=== PATIENT | male | born 1935 | race Two or more races ===

== ENCOUNTER 2017-07-21 16:19 | Inpatient (IN) | payer MEDICARE, BC ==
--- NOTE | 2017-07-21 22:04 | XR ---
EXAMINATION TYPE: XR chest 1V portable DATE OF EXAM: 07/21/2017 COMPARISON: NONE INDICATION: Pneumonia TECHNIQUE: Single frontal view of the chest is obtained. FINDINGS: The heart size is normal. The pulmonary vasculature is normal. Mild infiltrate is at the left base. Atelectasis and pneumonia are within the differential. Follow-up is recommended IMPRESSION: 1. Left basilar infiltrate. Correlate for atelectasis or pneumonia.
[2017-07-21] MEDS: SODIUM CHLORIDE 0.9% 1,000 ML IV SCH (22:16)
[2017-07-21] MEDS: AZITHROMYCIN 500 MG in SODIUM CHLORIDE 0.9% 250 ML IVPB SCH (22:18)
[2017-07-21] MEDS: cefTRIAXone IN SWFI 1,000 MG/10 ML SYRINGE IVP SCH (22:19)
[2017-07-21 22:36] LABS: HCT 35.6 % (39.0-53.0); HGB 12.3 gm/dL (13.0-17.5); MCH 33.2 pg (25.0-35.0); MCHC 34.6 g/dL (31.0-37.0); MCV 96.2 fL (80.0-100.0); Mean Platelet Volume 7.6; Platelet Count 232 k/uL (150-450); RBC 3.71 m/uL (4.30-5.90); RDW 14.2 % (11.5-15.5); WBC 10.4 k/uL (3.8-10.6)
[2017-07-21 22:48] LABS: Albumin 3.2 g/dL (3.5-5.0); Calcium 8.9 mg/dL (8.4-10.2); Total Bilirubin 0.3 mg/dL (0.2-1.3)
[2017-07-21 23:01] LABS: Large Platelets Present; Lymphocytes # (M) 1.14 k/uL (1.0-4.8); Monocytes # (M) 1.87 k/uL (0-1.0); Neutrophils # (M) 7.38 k/uL (1.3-7.7); Neutrophils % (M) 71 %; Nucleated Red Blood Cells 0 /100 WBC (0-0); Total Cells Counted 100
[2017-07-21] MEDS ORDERED: ACETAMINOPHEN TAB 325 MG TAB PO PRN (23:04)
[2017-07-21] MEDS ORDERED: HYDROcodone/APAP 5-325MG 1 EACH TAB PO PRN (23:47)
[2017-07-21] MEDS ORDERED: TEMAZEPAM 15 MG CAP PO PRN (23:47)
[2017-07-22 00:18] LABS: Appearance,Urine Clear (Clear); Bilirubin,Urine Negative (Negative); Blood,Urine Small (Negative); Color,Urine Yellow; Glucose,Urine (UA) Negative (Negative); Ketones,Urine 1+ (Negative); Leukocyte Esterase,Urine Trace (Negative); Nitrite,Urine Negative (Negative); PH, Urine 5.5 (5.0-8.0); Protein,Urine 1+ (Negative); RBC,Urine 1 /hpf (0-5); Specific Gravity,Urine 1.016 (1.001-1.035); Urobilinogen,Urine <2.0 mg/dL (<2.0); WBC,Urine 1 /hpf (0-5)
[2017-07-22] MEDS: ASPIRIN 81 MG PO SCH ×2 (01:05→09:07)
[2017-07-22] MEDS: metroNIDAZOLE 500 MG TAB PO SCH ×4 (01:05→22:52)
[2017-07-22] MEDS: ALLOPURINOL 300 MG TAB PO SCH ×3 (01:05→09:07)
[2017-07-22] MEDS: methylPREDNISolone SOD SUCCI 125 MG/2 ML VIAL IV SCH ×2 (01:06→06:26)
--- NOTE | 2017-07-22 05:36 | HP ---
HISTORY AND PHYSICAL CHIEF COMPLAINT: The chief complaints are pneumonia and as well as diarrhea and renal failure. HISTORY OF PRESENT ILLNESS: This 82-year-old gentleman with a past medical history of multiple medical problems including hypotension, asthma, obesity, history of COPD, hypertension, hyperlipidemia, ventral hernia, BPH, peripheral neuropathy being followed by Dr. Gino Gonzalez in the outpatient setting was complaining of shortness of breath and feeling pale and sweaty. Went to [facility] a few days ago, the patient was admitted there. Patient had some watery diarrhea. The patient apparently was taking some antibiotics. The patient recently traveled to [place] and patient was being monitored. The patient was found to have left lower pneumonia and multiple other findings on the CAT scan. The patient was subsequently transferred to [facility] for further evaluation and treatment. C. difficile is pending at this time. There is no history of any fever or rigors. No history of headache, loss of consciousness, seizures. PAST MEDICAL HISTORY: Hypertension, asthma, hayfever, history of obesity, hyperlipidemia, CAD, DJD, ventral hernia. MEDICATIONS: Medications prior to admission include home medications are: 1. Vitamin D2, 50,000 q.7 days. 2. Vitamin B6, 100 mg p.o. daily. 3. Klor-Con 10 mEq p.o. q.a.m. 4. ProAmatine 10 mg p.o. b.i.d. 5. Lasix 20 mg p.o. daily. 6. Vitamin D3, 1000 daily. 7. Zyloprim 300 mg p.o. daily. 8. Flovent 2 puffs daily. 9. Vitamin B12, 500 mcg p.o. daily. 10.Flomax 0.4 p.o. daily. 11.Singulair 10 mg p.o. daily. 12.Nexium 40 mg daily. 13.Aspirin 81 mg daily. ALLERGIES: None. FAMILY HISTORY: History of coronary artery disease and cancer in the family. No history of stroke. SOCIAL HISTORY: No history of smoking. Occasional alcohol intake. REVIEW OF SYSTEMS: ENT: No diminished hearing or diminished vision. CARDIOVASCULAR SYSTEM: As mentioned earlier. RESPIRATORY SYSTEM: As mentioned earlier. GI: No nausea, vomiting. : No dysuria. NERVOUS SYSTEM: No numbness or weakness. ALLERGY/IMMUNOLOGY: No asthma or hayfever. MUSCULOSKELETAL: As mentioned earlier. HEMATOLOGY/ONCOLOGY: No history anemia. ENDOCRINE: No history of diabetes or hypothyroidism. CONSTITUTIONAL: As mentioned earlier. DERMATOLOGY: Negative. RHEUMATOLOGY: Negative. PSYCHIATRY: As mentioned earlier. PHYSICAL EXAMINATION: The patient is alert and oriented x3. Pulse is 93, blood pressure 163/75, respiration 18, temperature 100.4, pulse ox 96% on room air. HEENT: Conjunctivae normal. Oral mucosa moist. Neck is no jugular venous distention. No carotid bruit. No lymph node enlargement. CARDIOVASCULAR: S1 and S2 muffled. No S3, no S4. RESPIRATORY: Breath sounds diminished at the bases. A few scattered rhonchi and crackles. ABDOMEN: Soft, nontender. No mass palpable. LEGS: No edema, no swelling. NERVOUS SYSTEM: Higher function as mentioned earlier. Moves all 4 limbs. No focal motor or sensory deficits. LYMPHATICS: No lymphadenopathy of the neck, axillae or groin. SKIN: No ulcer, rash or bleeding. LABS: WBC 10.4, hemoglobin is 12.3, monocytes is 1.8. Sodium 134, potassium 4, creatinine 1.37. Albumin 3.2. Chest x-ray reviewed personally.lt pneumonia ASSESSMENT: 1. Acute left lower lobe pneumonia, possibly gram-negative. 2. Acute diarrhea, possibly Clostridium difficile colitis. 3. Asthma, acute exacerbation. 4. Hypertension. 6. Obesity. 7. Hyperlipidemia. 8. Coronary artery disease. 9. Degenerative joint disease. 10.Ventral hernia. 11.Benign prostatic hypertrophy. 12.Peripheral neuropathy. 13.History of hypotension. 14.History of hernia surgery. 15.History of possibly EtOH. RECOMMENDATION AND DISCUSSION: In this 82-year-old gentleman who presented with multiple complex medical issues , we will monitor the patient closely. Continue the current medications. Cautious hydration. I would also recommend C. difficile checking and to cut down the diet and pulmonary consultation, empiric antibiotics. We will recommend empiric Flagyl. Prognosis guarded because of multiple complex medical issues. See orders for details. Further recommendations to follow. A copy of dictation forwarded to Dr. Gonzalez who is the primary physician. CHRIS / HOWIE: [id number] / MTDD
[2017-07-22 07:10] LABS: Glucose,Whole Blood 112 mg/dL (75-99)
[2017-07-22] MEDS ORDERED: IPRATROPIUM-ALBUTEROL 3 ML NEB INHALATION SCH (08:00)
[2017-07-22] MEDS ORDERED: SYMBICORT 160-4.5 MCG INHALER INHALATION SCH (08:00)
[2017-07-22] MEDS ORDERED: ALLOPURINOL 300 MG TAB PO SCH (09:00)
[2017-07-22] MEDS ORDERED: ASPIRIN 81 MG PO SCH (09:00)
[2017-07-22] MEDS: MIDODRINE 5 MG TAB PO SCH ×2 (09:04→21:57)
[2017-07-22] MEDS: HEPARIN SODIUM,PORCINE 5,000 UNIT/ML 1 ML VIAL SQ SCH ×2 (09:05→21:57)
[2017-07-22] MEDS: TAMSULOSIN 0.4 MG CAP.ER.24H PO SCH (09:06)
[2017-07-22] MEDS: CYANOCOBALAMIN 500 MCG TAB PO SCH (09:06)
[2017-07-22] MEDS: INSULIN ASPART 100 UNIT/ML 1 ML 10 ML VIAL SQ SCH ×4 (09:07→21:58)
[2017-07-22] MEDS: PANTOPRAZOLE 40 MG TABLET PO SCH (09:07)
[2017-07-22] MEDS: CHOLECALCIFEROL 1,000 UNIT TAB PO SCH (09:11)
[2017-07-22] MEDS: cefTRIAXone IN SWFI 1,000 MG/10 ML SYRINGE IVP SCH (09:11)
[2017-07-22 10:51] LABS: Basophils % (A) 0 %; Eosinophils % (A) 0 %; HCT 35.5 % (39.0-53.0); Lymphocytes # (A) 0.5 k/uL (1.0-4.8); Lymphocytes % (A) 8 %; MCH 32.9 pg (25.0-35.0); MCHC 33.7 g/dL (31.0-37.0); MCV 97.7 fL (80.0-100.0); Mean Platelet Volume 7.9; Monocytes # (A) 0.1 k/uL (0-1.0); Monocytes % (A) 1 %; Neutrophils # (A) 5.6 k/uL (1.3-7.7); Neutrophils % (A) 90 %; Platelet Count 202 k/uL (150-450); RBC 3.63 m/uL (4.30-5.90); RDW 14.2 % (11.5-15.5); WBC 6.2 k/uL (3.8-10.6)
--- NOTE | 2017-07-22 11:03 | P.CNPUL ---
History of Present Illness Consult date: 07/22/17 Reason for consult: dyspnea, cough Chief complaint: Diarrhea, cough, shortness of breath History of present illness: This is an 82-year-old gentleman who was transferred to [facility] from [facility]. The patient states he was admitted to the hospital on . He was transferred overnight secondary to dehydration and diarrhea. The patient states he has been short of breath for over a week. He denies fevers however he does note that he has had chills since arriving to the hospital. He does have a cough which she states is nonproductive of phlegm. He denies any sick contacts. He is a lifelong never smoker. 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 He was also in the [employer] and it is unknown if he was exposed to asbestos. He states his diarrhea is starting to improve. He does have a history of asthma and is on Xolair and Singulair. He states he does not use breathing treatments or inhalers at home. He does complain of wheezing. He did have a breathing treatment this morning which she states did help. The patient did have a chest x-ray which showed a left lower lobe infiltrate. Review of Systems All systems: negative Past Medical History Past Medical History: Asthma, GERD/Reflux, Hyperlipidemia, Prostate Disorder Additional Past Medical History / Comment(s): HYPOTENSION, PAST ANEMIA USED TO TAKE IRON SUPPLEMENTS, SEASOANL ALLERGIES, ENLARGED PROSTATE. GOUT. NEUROPATHY History of Any Multi-Drug Resistant Organisms: None Reported Past Surgical History: Hernia Repair, Orthopedic Surgery Additional Past Surgical History / Comment(s): FOOT SURG(.scraped bones- ancelmo 5th toes), cataracts- lens implants, [facility] HERNIA REPAIR W/MESH Past Anesthesia/Blood Transfusion Reactions: No Reported Reaction Smoking Status: Never smoker - Past Family History Brother(s) Family Medical History: Cancer, Coronary Artery Disease (CAD) Mother History Unknown: Yes Family Medical History: No Reported History Additional Family Medical History / Comment(s): " from natural causes" Father Additional Family Medical History / Comment(s): from black lung, 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 [place] Medications and Allergies Home Medications Medication Instructions Recorded Confirmed Type Allopurinol [Zyloprim] 300 mg PO DAILY 07/30/15 07/21/17 History Aspirin 81 mg PO DAILY 07/30/15 07/21/17 History Esomeprazole Magnesium [NexIUM] 40 mg PO DAILY 07/30/15 07/21/17 History Montelukast [Singulair] 10 mg PO DAILY 07/30/15 07/21/17 History Ergocalciferol [Vitamin D2 50,000 unit PO Q7D 12/05/15 07/21/17 History (DRISDOL)] Furosemide [Lasix] 20 mg PO DAILY 12/05/15 07/21/17 History Midodrine HCl [ProAmatine] 10 mg PO BID 12/05/15 07/21/17 History Potassium Chloride [Klor-Con 10] 10 meq PO QAM 12/05/15 07/21/17 History Cholecalciferol [Vitamin D3] 1,000 unit PO DAILY 12/13/15 07/21/17 History Cyanocobalamin [Vitamin B-12] 500 mcg PO DAILY 12/13/15 07/21/17 History Fluticasone Propionate [Flovent 2 puff INHALATION RT-DAILY 12/13/15 07/21/17 History Hfa 110mcg] Pyridoxine HCl (Vitamin B6) 100 mg PO DAILY 07/21/17 07/21/17 History [Vitamin B-6] Tamsulosin HCl [Flomax] 0.4 mg PO DAILY 07/21/17 07/21/17 History Allergies Allergy/AdvReac Type Severity Reaction Status Date / Time No Known Allergies Allergy Verified 07/21/17 22:02 Physical Exam Osteopathic Statement: *. No significant issues noted on an osteopathic structural exam other than those noted in the History and Physical/Consult. Vitals: Vital Signs Temp Pulse Pulse Resp BP Pulse Ox 07/22/17 09:00 16 07/22/17 08:09 78 07/22/17 08:00 76 07/22/17 06:08 96.5 F L 70 16 175/81 97 07/21/17 23:00 100.7 F H 85 16 169/79 93 L 07/21/17 20:08 100.5 F H 93 18 163/75 96 Intake and Output 07/21/17 07/22/17 07/22/17 22:59 06:59 14:59 Intake Total 192 Output Total 1 Balance 191 Intake: Oral 192 Output: Stool 1 Other: Voiding Method Toilet # Voids 1 2 1 # Bowel Movements 1 1 Weight 99.79 kg Gen.: Patient is alert and oriented 3, no acute distress, obese Cardiovascular: Regular rate and rhythm, S1/S2 Lungs: Bilateral expiratory wheezing Abdomen: Soft nontender nondistended positive bowel sounds Extremities: Trace edema Results - Laboratory Findings CBC and BMP: 07/21/17 21:54 07/21/17 21:54 Abnormal lab findings: Abnormal Labs 07/21/17 07/21/17 07/21/17 21:54 21:54 23:55 RBC 3.71 L Hgb 12.3 L Hct 35.6 L Monocytes # (Manual) 1.87 H Sodium 134 L Carbon Dioxide 16 L BUN 26 H Creatinine 1.37 H POC Glucose (mg/dL) Alkaline Phosphatase 143 H Total Protein 6.0 L Albumin 3.2 L Urine Protein 1+ H Urine Ketones 1+ H Urine Blood Small H Ur Leukocyte Esterase Trace H 07/22/17 06:48 RBC Hgb Hct Monocytes # (Manual) Sodium Carbon Dioxide BUN Creatinine POC Glucose (mg/dL) 112 H Alkaline Phosphatase Total Protein Albumin Urine Protein Urine Ketones Urine Blood Ur Leukocyte Esterase - Diagnostic Findings Chest x-ray: report reviewed, image reviewed Assessment and Plan Assessment: Acute hypoxic respiratory failure Acute healthcare associated pneumonia, left lower lobe Acute exacerbation of severe persistent asthma Gastroenteritis of unclear etiology 2 out of 4 SIRS, sepsis Normochromic normocytic anemia Hyponatremia with dehydration Acute kidney injury Mild protein calorie malnutrition UTI present on admission Hypertension Obesity Dyslipidemia Coronary artery disease BPH Peripheral neuropathy O2 to maintain saturation greater than or equal to 90% Antibiotics: per ID IVF hydration Blood, sputum, urine, stool cultures Stool for cdiff Duonebs Repeat CXR in AM Pulmicort Singulair Solumedrol taper Incentive spirometry and pulmonary hygiene Mucinex Monitor renal function and urine output Avoid nephrotoxins GI and DVT prophylaxis: GI and DVT prophylaxis Thank you for this consultation. We will continue to follow along.
[2017-07-22 11:09] LABS: Calcium 8.7 mg/dL (8.4-10.2); Potassium 3.7 mmol/L (3.5-5.1)
[2017-07-22 11:51] LABS: Glucose,Whole Blood 251 mg/dL (75-99)
[2017-07-22] MEDS: PYRIDOXINE 50 MG TAB PO SCH (13:08)
[2017-07-22] MEDS: IPRATROPIUM-ALBUTEROL 3 ML NEB INHALATION SCH ×2 (13:11→20:13)
[2017-07-22] MEDS: methylPREDNISolone SOD SUCCI 40 MG/ML 1 ML VIAL IV SCH ×2 (15:49→22:52)
--- NOTE | 2017-07-22 16:15 | P.PN ---
Subjective Progress Note Date: 07/22/17 Progress note being dictated for Dr. Hernandez. Interval history: This 82-year-old gentleman admitted with left lower lobe pneumonia, diarrhea and multiple other medical issues. Diarrhea tested negative for C. difficile colitis. Maintained on gentle IV fluid hydration. Diarrhea subsided. Creatinine improving. Maintained on nebulized bronchodilators, antibiotics, IV steroids with breathing improving. T-max 100.7 , currently afebrile. Objective - Vital Signs Vital signs: Vital Signs Temp 96.5 F L 07/22/17 06:08 Pulse 82 07/22/17 13:21 Resp 16 07/22/17 09:00 BP 175/81 07/22/17 06:08 Pulse Ox 97 07/22/17 06:08 Intake & Output 07/21/17 07/22/17 07/22/17 18:59 06:59 18:59 Intake Total 192 Output Total 1 Balance 191 Weight 99.79 kg Intake: Oral 192 Output: Stool 1 Other: Voiding Method Toilet # Voids 2 3 # Bowel Movements 1 1 - Exam PHYSICAL EXAM: VITAL SIGNS: As above GENERAL: Sitting up in bed, no acute distress HEENT: Conjunctivae normal. eyes normal. Oral mucosa moist NECK: No JVD. No thyroid enlargement. No LNs CARDIOVASCULAR: S1, S2 muffled. No murmur RESPIRATION: Breath sounds diminished in the bases. Occasional scattered bilateral rhonchi, crackles, expiratory wheezing ABDOMEN: Soft, nontender . No guarding. no masses palpable.Bowel sounds heard. LEGS: No edema. no swelling PSYCHIATRY: Alert and oriented -3, mood and affect normal. NERVOUS SYSTEM: Cranial N 2-12 grossly normal. Moves all 4 limbs. Diffuse weakness No focal deficits. Skin: no ulcer no rash Joints: No active swelling. No inflammation. Lymphatic system. No LN neck axilla or groin. - Labs CBC & Chem 7: 07/22/17 10:04 07/22/17 10:04 Labs: Abnormal Lab Results - Last 24 Hours (Table) 07/21/17 07/21/17 07/21/17 Range/Units 21:54 21:54 23:55 RBC 3.71 L (4.30-5.90) m/uL Hgb 12.3 L (13.0-17.5) gm/dL Hct 35.6 L (39.0-53.0) % Lymphocytes # (1.0-4.8) k/uL Monocytes # (Manual) 1.87 H (0-1.0) k/uL Sodium 134 L (137-145) mmol/L Carbon Dioxide 16 L (22-30) mmol/L BUN 26 H (9-20) mg/dL Creatinine 1.37 H (0.66-1.25) mg/dL Glucose (74-99) mg/dL POC Glucose (mg/dL) (75-99) mg/dL Alkaline Phosphatase 143 H (38-126) U/L Total Protein 6.0 L (6.3-8.2) g/dL Albumin 3.2 L (3.5-5.0) g/dL Urine Protein 1+ H (Negative) Urine Ketones 1+ H (Negative) Urine Blood Small H (Negative) Ur Leukocyte Esterase Trace H (Negative) 07/22/17 07/22/17 07/22/17 Range/Units 06:48 10:04 10:04 RBC 3.63 L (4.30-5.90) m/uL Hgb 12.0 L (13.0-17.5) gm/dL Hct 35.5 L (39.0-53.0) % Lymphocytes # 0.5 L (1.0-4.8) k/uL Monocytes # (Manual) (0-1.0) k/uL Sodium 136 L (137-145) mmol/L Carbon Dioxide 15 L (22-30) mmol/L BUN 28 H (9-20) mg/dL Creatinine (0.66-1.25) mg/dL Glucose 251 H (74-99) mg/dL POC Glucose (mg/dL) 112 H (75-99) mg/dL Alkaline Phosphatase (38-126) U/L Total Protein (6.3-8.2) g/dL Albumin (3.5-5.0) g/dL Urine Protein (Negative) Urine Ketones (Negative) Urine Blood (Negative) Ur Leukocyte Esterase (Negative) 07/22/17 Range/Units 11:49 RBC (4.30-5.90) m/uL Hgb (13.0-17.5) gm/dL Hct (39.0-53.0) % Lymphocytes # (1.0-4.8) k/uL Monocytes # (Manual) (0-1.0) k/uL Sodium (137-145) mmol/L Carbon Dioxide (22-30) mmol/L BUN (9-20) mg/dL Creatinine (0.66-1.25) mg/dL Glucose (74-99) mg/dL POC Glucose (mg/dL) 251 H (75-99) mg/dL Alkaline Phosphatase (38-126) U/L Total Protein (6.3-8.2) g/dL Albumin (3.5-5.0) g/dL Urine Protein (Negative) Urine Ketones (Negative) Urine Blood (Negative) Ur Leukocyte Esterase (Negative) Microbiology - Last 24 Hours (Table) 07/21/17 23:55 Urine Culture - Preliminary Urine,Clean Catch Assessment and Plan Assessment: 1. Acute left lower lobe pneumonia possibly gram-negative 2. Acute diarrhea, C. difficile colitis ruled out 3. Asthma, acute exacerbation 4. Hypertension 5. Obesity, BMI 32.5 6. CAD Plan: Continue with current medication regime ,PPI, monitoring and symptomatic treatment. Maintaining gentle IV fluid hydration for today given patient's diarrhea on admission. Probably discontinue IV fluids tomorrow, if patient continues to have no diarrhea. Advance diet to full liquids. Maintain nebulized bronchodilators, systemic steroids, antibiotics. Cultures pending. Aggressive pulmonary toileting with incentive spirometer reinforced. Close monitoring of renal function, electrolyte with repeat labs ordered for a.m. The impression and plan of care has been dictated as directed. : I performed a history and examination of this patient, discussed the same with the dictator. I agree with the dictator's note ,documented as a scribe. Any additional findings or plans will be noted.
[2017-07-22 17:06] LABS: Glucose,Whole Blood 299 mg/dL (75-99)
[2017-07-22] MEDS: SODIUM CHLORIDE 0.9% 1,000 ML IV SCH (17:12)
[2017-07-22] MEDS: CHOLESTYRAMINE (WITH SUGAR) 4 GM PACKET PO SCH (17:21)
[2017-07-22] MEDS: BUDESONIDE 0.5 MG/2 ML NEBU INHALATION SCH (20:13)
[2017-07-22 20:49] LABS: Hemoglobin A1C 5.4 % (4.0-6.0)
[2017-07-22 21:54] LABS: Glucose,Whole Blood 185 mg/dL (75-99)
[2017-07-22] MEDS: AZITHROMYCIN 500 MG in SODIUM CHLORIDE 0.9% 250 ML IVPB SCH (21:56)
[2017-07-22] MEDS: MONTELUKAST 10 MG TAB PO SCH (21:57)
[2017-07-22] MEDS: guaiFENesin 600 MG TABLET.ER PO SCH (21:57)
--- NOTE | 2017-07-22 23:19 | CONS ---
CONSULTATION DATE OF SERVICE: 07/22/2017 REASON FOR CONSULTATION: Infection. HISTORY OF PRESENT ILLNESS: The patient is an 83-year-old male who apparently presented to the [facility] with chief complaints of dehydration and diarrhea. His symptom of diarrhea has been going on for about a week. He did have 4-5 loose stools per day with no blood or mucus in it. He denies significant abdominal pain, some nausea, but no vomiting. The patient also has been complaining of some shortness of breath on minimal exertion. He did have a very mild cough, but not bringing up any sputum. Denies having any URI symptoms. With these symptoms, the patient apparently had been evaluated at [facility]. The patient did have a workup including a CT of the chest that had been suspicious for possible pneumonia, left lower lobe. Subsequently, the patient has been transferred to the [facility] for further workup of the same. Infectious Disease was consulted for further recommendation regarding antibiotic therapy. REVIEW OF SYSTEMS: CONSTITUTIONAL: Positive for weakness, some chills but denies any high-grade fever. EYES: No complaint. ENT: No complaint. RESPIRATORY: As per HPI. CARDIOVASCULAR: No complaint. GENITOURINARY: No complaint. : As per HPI. MUSCULOSKELETAL: No complaint. INTEGUMENTARY: No complaint. PSYCHOLOGICAL: No complaint. ENDOCRINE: No complaint. NEUROLOGICAL: No complaint. PAST MEDICAL HISTORY: Significant for gastroesophageal reflux disease, hyperlipidemia, hypertrophy, neuropathy, asthma. PAST SURGICAL HISTORY: Hernia repair . SOCIAL HISTORY: No history of smoking, drinking or drug use. FAMILY HISTORY: Father history of coronary artery disease. Mother of natural causes. ALLERGIES: No known drug allergies. MEDICATIONS: Include the patient is currently on Tylenol, [place], DuoNeb, Zyloprim, aspirin, erythromycin, Pulmicort, Rocephin, vitamin D3, D2, heparin, NovoLog, Solu- Medrol, , Singulair, Protonix. EXAMINATION: Blood pressure 144/67, pulse of 80, temperature 97.8, T-max is 100.7. He is 95% on room air. General description is an elderly male lying in bed in no distress. No tachypnea or accessory muscle of respiration use. HEENT: Shows no pallor or scleral icterus. Oral mucous membranes dry. No pharyngeal erythema or thrush. NECK: Trachea central. No thyromegaly. LUNGS: Unlabored breathing with decreased breath sounds in the bases. No wheeze or crackle. HEART: S1, S2. Regular rate and rhythm. ABDOMEN: Soft, no tenderness. No guarding or rigidity. EXTREMITIES: No edema of the feet. SKIN EXAMINATION: No rash or mass palpable. NEUROLOGICAL: The patient is awake, alert, oriented. Mood and affect normal. LABS: Hemoglobin is 12, white count 6.2. Stool for C. difficile has been negative. BUN of 28, creatinine 1.24. Electrolytes has been normal. Urine was negative. Chest x-ray with left lower lobe pneumonia. DIAGNOSTIC IMPRESSION AND PLAN: 1. The patient presented to the hospital with increasing shortness of breath. He did have a cough with left lower lobe infiltrate and fever of 100.7. The patient did have primary GI symptom with question of possible to be the cause of underlying left lower lobe pneumonia. 2. The patient with significant diarrhea, questionably related to underlying stomach illness from his pneumonia versus secondary to a GI infection. The stool for Clostridium difficile has been negative. PLAN: 1. We will check urine for Legionella antigen. 2. Get sputum for Gram stain and culture today. 3. Patient will be treated with Rocephin 1 g along with Zithromax for . 4. We will add Questran 4 g twice a day for symptomatic relief. 5. We will follow up on his clinical condition and culture to further adjust medication if needed. Thank you for this consultation. We will follow this patient along with you. MMODL / IJN: [id number] /
[2017-07-23 07:24] LABS: Glucose,Whole Blood 175 mg/dL (75-99)
[2017-07-23] MEDS: MIDODRINE 5 MG TAB PO SCH ×2 (07:57→21:30)
[2017-07-23] MEDS: methylPREDNISolone SOD SUCCI 40 MG/ML 1 ML VIAL IV SCH ×3 (08:01→23:55)
[2017-07-23] MEDS: CYANOCOBALAMIN 500 MCG TAB PO SCH (08:02)
[2017-07-23] MEDS: ALLOPURINOL 300 MG TAB PO SCH (08:02)
[2017-07-23] MEDS: HEPARIN SODIUM,PORCINE 5,000 UNIT/ML 1 ML VIAL SQ SCH ×2 (08:02→21:18)
[2017-07-23] MEDS: metroNIDAZOLE 500 MG TAB PO SCH ×3 (08:02→23:55)
[2017-07-23] MEDS: ASPIRIN 81 MG PO SCH (08:03)
[2017-07-23] MEDS: PANTOPRAZOLE 40 MG TABLET PO SCH (08:03)
[2017-07-23] MEDS: CHOLECALCIFEROL 1,000 UNIT TAB PO SCH (08:03)
[2017-07-23] MEDS: TAMSULOSIN 0.4 MG CAP.ER.24H PO SCH (08:03)
[2017-07-23] MEDS: guaiFENesin 600 MG TABLET.ER PO SCH ×2 (08:03→21:18)
[2017-07-23] MEDS: cefTRIAXone IN SWFI 1,000 MG/10 ML SYRINGE IVP SCH (08:03)
[2017-07-23] MEDS: INSULIN ASPART 100 UNIT/ML 1 ML 10 ML VIAL SQ SCH ×4 (08:13→21:28)
[2017-07-23] MEDS: BUDESONIDE 0.5 MG/2 ML NEBU INHALATION SCH ×2 (08:40→20:49)
[2017-07-23] MEDS: IPRATROPIUM-ALBUTEROL 3 ML NEB INHALATION SCH ×3 (08:40→20:49)
[2017-07-23 08:57] LABS: Basophils % (A) 0 %; Eosinophils % (A) 0 %; HCT 34.3 % (39.0-53.0); HGB 11.6 gm/dL (13.0-17.5); Lymphocytes # (A) 0.6 k/uL (1.0-4.8); Lymphocytes % (A) 4 %; MCH 32.5 pg (25.0-35.0); MCHC 33.9 g/dL (31.0-37.0); Mean Platelet Volume 7.8; Monocytes # (A) 0.4 k/uL (0-1.0); Monocytes % (A) 3 %; Neutrophils # (A) 13.4 k/uL (1.3-7.7); Neutrophils % (A) 92 %; Platelet Count 254 k/uL (150-450); RBC 3.57 m/uL (4.30-5.90); RDW 14.2 % (11.5-15.5); WBC 14.5 k/uL (3.8-10.6)
[2017-07-23 09:12] LABS: Calcium 9.3 mg/dL (8.4-10.2); Potassium 3.6 mmol/L (3.5-5.1)
[2017-07-23] MEDS: CHOLESTYRAMINE (WITH SUGAR) 4 GM PACKET PO SCH ×2 (09:51→17:31)
--- NOTE | 2017-07-23 10:37 | XR ---
EXAMINATION TYPE: XR chest 1V portable DATE OF EXAM: 07/23/2017 HISTORY: Shortness of breath. COMPARISON: 07/21/2017 TECHNIQUE: Single view of the chest is submitted. FINDINGS: Demonstrated are scattered senescent parenchymal change. Small infiltrate left lung base is unchanged. Mild linear atelectasis or scarring right lung base. The heart is stable. Hilar and mediastinal structures are within normal limits. Degenerative changes are seen of the dorsal spine. IMPRESSION: 1. Small infiltrate left lung base is unchanged. Mild linear atelectasis or scarring right lung base .
--- NOTE | 2017-07-23 11:16 | P.PN ---
Subjective Progress Note Date: 07/23/17 HPI: This is an 82-year-old gentleman who was transferred to [facility] from [facility]. The patient states he was admitted to the hospital on . He was transferred overnight secondary to dehydration and diarrhea. The patient states he has been short of breath for over a week. He denies fevers however he does note that he has had chills since arriving to the hospital. He does have a cough which she states is nonproductive of phlegm. He denies any sick contacts. He is a lifelong never smoker. 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 He was also in the [employer] and it is unknown if he was exposed to asbestos. He states his diarrhea is starting to improve. He does have a history of asthma and is on Xolair and Singulair. He states he does not use breathing treatments or inhalers at home. He does complain of wheezing. He did have a breathing treatment this morning which she states did help. The patient did have a chest x-ray which showed a left lower lobe infiltrate. Interval History: 07/23/17- patient is being seen examined and evaluated today on rounds. He is resting up in bed on room air. States he feels his breathing is slightly better however still gets winded and short of breath with exertion. His sputum culture is pending. Chest x-ray was reviewed and a small infiltrate in the left lung bases unchanged with mild linear atelectasis or scarring in the right lung base. He states his appetite has gotten better and his diarrhea has also much improved. He is afebrile no further complaints. Objective - Vital Signs Vital signs: Vital Signs Temp 96.2 F L 07/23/17 06:15 Pulse 77 07/23/17 09:00 Resp 20 07/23/17 08:21 BP 158/85 07/23/17 06:15 Pulse Ox 96 07/23/17 06:15 Intake & Output 07/22/17 07/23/17 07/23/17 18:59 06:59 18:59 Intake Total 192 500 375 Output Total 251 Balance -59 500 375 Weight 99.79 kg Intake: Oral 192 500 375 Output: Urine 250 Stool 1 Other: Voiding Method Toilet Toilet Urinal Urinal # Voids 1 1 # Bowel Movements 1 - Exam Gen.: Patient is alert and oriented 3, no acute distress, obese Cardiovascular: Regular rate and rhythm, S1/S2 Lungs: Bilateral expiratory wheezing Abdomen: Soft nontender nondistended positive bowel sounds Extremities: Trace edema - Labs CBC & Chem 7: 07/23/17 08:34 07/23/17 08:34 Labs: Abnormal Lab Results - Last 24 Hours (Table) 07/22/17 07/22/17 07/22/17 Range/Units 11:49 16:43 21:27 WBC (3.8-10.6) k/uL RBC (4.30-5.90) m/uL Hgb (13.0-17.5) gm/dL Hct (39.0-53.0) % Neutrophils # (1.3-7.7) k/uL Lymphocytes # (1.0-4.8) k/uL Carbon Dioxide (22-30) mmol/L BUN (9-20) mg/dL Glucose (74-99) mg/dL POC Glucose (mg/dL) 251 H 299 H 185 H (75-99) mg/dL 07/23/17 07/23/17 07/23/17 Range/Units 07:20 08:34 08:34 WBC 14.5 H (3.8-10.6) k/uL RBC 3.57 L (4.30-5.90) m/uL Hgb 11.6 L (13.0-17.5) gm/dL Hct 34.3 L (39.0-53.0) % Neutrophils # 13.4 H (1.3-7.7) k/uL Lymphocytes # 0.6 L (1.0-4.8) k/uL Carbon Dioxide 17 L (22-30) mmol/L BUN 28 H (9-20) mg/dL Glucose 189 H (74-99) mg/dL POC Glucose (mg/dL) 175 H (75-99) mg/dL Microbiology - Last 24 Hours (Table) 07/22/17 13:00 Gram Stain - Preliminary Sputum 07/21/17 22:01 Blood Culture - Preliminary Blood No Growth after 24 hours 07/21/17 21:54 Blood Culture - Preliminary Blood No Growth after 24 hours 07/21/17 23:55 Urine Culture - Preliminary Urine,Clean Catch Assessment and Plan Assessment: Assessment Acute hypoxic respiratory failure Acute healthcare associated pneumonia, left lower lobe Acute exacerbation of severe persistent asthma Gastroenteritis of unclear etiology 2 out of 4 SIRS, sepsis Normochromic normocytic anemia Hyponatremia with dehydration Acute kidney injury Mild protein calorie malnutrition UTI present on admission Hypertension Obesity Dyslipidemia Coronary artery disease BPH Peripheral neuropathy Plan O2 to maintain saturation greater than or equal to 90% Antibiotics: per ID IVF hydration Blood, sputum, urine, stool cultures Stool for cdiff, negative Duonebs Repeat CXR reviewed Pulmicort Singulair Solumedrol taper Incentive spirometry and pulmonary hygiene Mucinex Monitor renal function and urine output Avoid nephrotoxins GI and DVT prophylaxis: GI and DVT prophylaxis Thank you for this consultation. We will continue to follow along. I performed an examination of the patient and discussed their management with the nurse practitioner. I have reviewed the nurse practitioner's note and agree with the documented findings and plan of care.
[2017-07-23 11:36] LABS: Glucose,Whole Blood 295 mg/dL (75-99)
[2017-07-23] MEDS: PYRIDOXINE 50 MG TAB PO SCH (12:11)
--- NOTE | 2017-07-23 13:33 | CDI ---
Last Revision, January 2017 Documentation Clarification Form Date: 07/22/17 From: Lili Fuentes RN Admit Date: 07/21/2017 7:58:00 PM Patient Name: Jesus Quispe Visit Number: [id number] ATTENTION: The Clinical Documentation Specialists (CDI) and [facility] Coding Staff appreciate your assistance in clarifying documentation. Please respond to the clarification below the line at the bottom and electronically sign. The CDI & [facility] Coding staff will review the response and follow-up if needed. Please note: Queries are made part of the Legal Health Record. If you have any questions, please contact the author of this message via ITS. Dr. Paul Hernandez, Documentation and location in medical record included sepsis in the PN 07/23 and consult dated 07/22. History/Risk Factors: hypotension, asthma, obesity,COPD, HTN, hyperlipidemia, ventral hernia, BPH, peripheral neuropathy, DJD, hay-fever Clinical Indicators: WBC: 14.5 Vitals signs on admission: T 100.5, P 93, R 18, 163/75, 96% RA Blood cultures: no growth after 24 hours Sputum positive gram positive cocci Treatment: ID Consult: Dr Dudley Antibiotics: Flagyl 500 mg PO q8hr, Azithromycin 500 mg IVPB In your professional opinion, please clarify if these findings signify one of the following conditions, whether the condition is POA, and cause, if known: Sepsis ruled in Sepsis ruled out Other, please specify Unable to determine Present on Admission: Yes No Please continue to document in your progress notes and discharge summary in order to capture severity of illness and risk of mortality. Include clinical findings that support your diagnosis. Sepsis ruled out MTDD
--- NOTE | 2017-07-23 16:20 | PN ---
PROGRESS NOTE DATE OF SERVICE: 07/23/2017 This 82-year-old gentleman who was admitted with acute left lower pneumonia possibly gram-negative also had diarrhea. The patient closely monitored. No chest pain. No palpitations. No fever. The patient has shortness of breath also. PHYSICAL EXAM: Alert and oriented x3. Pulse is 80, blood pressure is 150/90, respiration 20, temperature 98.2, pulse ox 97% on room air. HEENT: Conjunctivae normal. Oral mucosa moist. Neck is no jugular venous distention. No carotid bruit. No lymph node enlargement. CARDIOVASCULAR: Breath sounds diminished in the bases. A few scattered rhonchi and crackles. Expiratory wheezing. ABDOMEN: Soft, nontender. LEGS: No edema. NERVOUS SYSTEM: No focal deficits. LABS: WBC 14, hemoglobin 11.6. ASSESSMENT: 1. Acute left lower lobe pneumonia possibly gram-negative. 2. Acute asthma acute exacerbation. 3. Acute diarrhea, C difficile colitis ruled out. 4. Hypertension. 5. Obesity with body mass index of 32.6. 6. History of coronary artery disease. RECOMMENDATIONS AND DISCUSSION: I recommend to continue current medications, monitoring and symptomatic treatment. Otherwise continue with antibiotics, taper steroids. Continue with bronchodilators. Closely follow with Pulmonary. Guarded prognosis. Further recommendations to follow. MMODL / IJN: [id number] /
[2017-07-23 17:08] LABS: Glucose,Whole Blood 226 mg/dL (75-99)
[2017-07-23] MEDS ORDERED: AZITHROMYCIN 500 MG TAB PO SCH (21:00)
[2017-07-23] MEDS: MONTELUKAST 10 MG TAB PO SCH (21:17)
[2017-07-23 21:41] LABS: Glucose,Whole Blood 239 mg/dL (75-99)
--- NOTE | 2017-07-23 22:53 | PN ---
PROGRESS NOTE DATE OF SERVICE: 07/23/2017 REASON FOR FOLLOWUP: Pneumonia. INTERVAL HISTORY: The patient is afebrile. He has difficulty breathing, mostly on exertion. The patient denies significant chest pain. He did have some cough, but not bringing up any sputum. No abdominal pain and diarrhea seems to have improved. EXAMINATION: Blood pressure 143/68, pulse of 101, temperature 97. He is 97% on room air. General description is an elderly male, up in the bed in no distress. RESPIRATORY SYSTEM: Unlabored breathing with decreased breath sounds in the bases. No wheeze. HEART: S1, S2. Regular rate and rhythm. ABDOMEN: Soft. No tenderness. LABS: Hemoglobin is 11.6, white count of 14.5. BUN of 28, creatinine is 1.14. Electrolytes have been normal. Sputum culture currently pending. Blood culture so far negative. Stool culture currently pending. DIAGNOSTIC IMPRESSION AND PLAN: 1. Patient admitted to hospital with fever, did have difficulty breathing with left lobe pneumonia seen on [facility] at [facility]; however, the hospital the patient is currently on Rocephin and Levaquin that will continue while waiting for the culture to finalize. 2. Patient with diarrhea. Stool Clostridium difficile negative. Stool culture pending. Continue with the Questran. Continue supportive care. MMODL / IJN: [id number] /
[2017-07-24 00:16] VITALS: RESP 20; TEMP 97.1
[2017-07-24 06:18] VITALS: BP 156/80
[2017-07-24 07:27] LABS: Glucose,Whole Blood 181 mg/dL (75-99)
[2017-07-24] MEDS: BUDESONIDE 0.5 MG/2 ML NEBU INHALATION SCH (07:47)
[2017-07-24] MEDS: IPRATROPIUM-ALBUTEROL 3 ML NEB INHALATION SCH (07:47)
[2017-07-24] MEDS: cefTRIAXone IN SWFI 1,000 MG/10 ML SYRINGE IVP SCH (08:13)
[2017-07-24] MEDS: metroNIDAZOLE 500 MG TAB PO SCH (08:14)
[2017-07-24] MEDS: INSULIN ASPART 100 UNIT/ML 1 ML 10 ML VIAL SQ SCH ×2 (08:14→12:02)
[2017-07-24] MEDS: ALLOPURINOL 300 MG TAB PO SCH (08:14)
[2017-07-24] MEDS: CYANOCOBALAMIN 500 MCG TAB PO SCH (08:14)
[2017-07-24] MEDS: methylPREDNISolone SOD SUCCI 40 MG/ML 1 ML VIAL IV SCH (08:14)
[2017-07-24] MEDS: TAMSULOSIN 0.4 MG CAP.ER.24H PO SCH (08:15)
[2017-07-24] MEDS: guaiFENesin 600 MG TABLET.ER PO SCH (08:15)
[2017-07-24] MEDS: ASPIRIN 81 MG PO SCH (08:15)
[2017-07-24] MEDS: PANTOPRAZOLE 40 MG TABLET PO SCH (08:15)
[2017-07-24] MEDS: HEPARIN SODIUM,PORCINE 5,000 UNIT/ML 1 ML VIAL SQ SCH (08:15)
[2017-07-24] MEDS: CHOLECALCIFEROL 1,000 UNIT TAB PO SCH (08:15)
[2017-07-24] MEDS: MIDODRINE 5 MG TAB PO SCH (08:18)
[2017-07-24 08:28] VITALS: PULSE 80
[2017-07-24 08:34] LABS: Basophils % (A) 0 %; Eosinophils % (A) 0 %; HCT 32.5 % (39.0-53.0); HGB 11.3 gm/dL (13.0-17.5); Lymphocytes # (A) 0.4 k/uL (1.0-4.8); Lymphocytes % (A) 4 %; MCHC 34.7 g/dL (31.0-37.0); MCV 95.3 fL (80.0-100.0); Mean Platelet Volume 7.5; Monocytes # (A) 0.3 k/uL (0-1.0); Monocytes % (A) 2 %; Neutrophils # (A) 11.4 k/uL (1.3-7.7); Neutrophils % (A) 94 %; Platelet Count 252 k/uL (150-450); RBC 3.42 m/uL (4.30-5.90); RDW 14.3 % (11.5-15.5); WBC 12.1 k/uL (3.8-10.6)
[2017-07-24 08:53] LABS: Calcium 9.5 mg/dL (8.4-10.2); Potassium 3.8 mmol/L (3.5-5.1)
[2017-07-24] MEDS: CHOLESTYRAMINE (WITH SUGAR) 4 GM PACKET PO SCH (09:43)
--- NOTE | 2017-07-24 10:51 | P.PN ---
Subjective Progress Note Date: 07/24/17 HPI: This is an 82-year-old gentleman who was transferred to [facility] from [facility]. The patient states he was admitted to the hospital on . He was transferred overnight secondary to dehydration and diarrhea. The patient states he has been short of breath for over a week. He denies fevers however he does note that he has had chills since arriving to the hospital. He does have a cough which she states is nonproductive of phlegm. He denies any sick contacts. He is a lifelong never smoker. 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 He was also in the [employer] and it is unknown if he was exposed to asbestos. He states his diarrhea is starting to improve. He does have a history of asthma and is on Xolair and Singulair. He states he does not use breathing treatments or inhalers at home. He does complain of wheezing. He did have a breathing treatment this morning which she states did help. The patient did have a chest x-ray which showed a left lower lobe infiltrate. Interval History: 07/23/17- patient is being seen examined and evaluated today on rounds. He is resting up in bed on room air. States he feels his breathing is slightly better however still gets winded and short of breath with exertion. His sputum culture is pending. Chest x-ray was reviewed and a small infiltrate in the left lung bases unchanged with mild linear atelectasis or scarring in the right lung base. He states his appetite has gotten better and his diarrhea has also much improved. He is afebrile no further complaints. 07/24/17- patient is being seen examined and evaluated today on rounds. He is resting up in bedside chair on room air. States his breathing has significantly improved. States his cough and congestion have also improved. His diarrhea has subsided. Patient is requesting to go home. His respiratory status is stable. Currently has infectious disease on consult. Objective - Vital Signs Vital signs: Vital Signs Temp 97.1 F L 07/24/17 06:00 Pulse 80 07/24/17 07:57 Resp 20 07/24/17 06:00 BP 156/80 07/24/17 06:18 Pulse Ox 97 07/24/17 06:00 Intake & Output 07/23/17 07/24/17 07/24/17 18:59 06:59 18:59 Intake Total 875 400 Output Total 1 Balance 874 400 Weight 99.79 kg Intake: Oral 875 400 Output: Stool 1 Other: Voiding Method Toilet Toilet Toilet Urinal Urinal # Voids 3 1 # Bowel Movements 0 - Exam Gen.: Patient is alert and oriented 3, no acute distress, obese Cardiovascular: Regular rate and rhythm, S1/S2 Lungs: Lungs clear, bases diminished Abdomen: Soft nontender nondistended positive bowel sounds Extremities: Trace edema - Labs CBC & Chem 7: 07/24/17 08:01 07/24/17 08:01 Labs: Abnormal Lab Results - Last 24 Hours (Table) 07/23/17 07/23/17 07/23/17 Range/Units 11:19 17:05 21:23 WBC (3.8-10.6) k/uL RBC (4.30-5.90) m/uL Hgb (13.0-17.5) gm/dL Hct (39.0-53.0) % Neutrophils # (1.3-7.7) k/uL Lymphocytes # (1.0-4.8) k/uL Sodium (137-145) mmol/L Carbon Dioxide (22-30) mmol/L BUN (9-20) mg/dL Glucose (74-99) mg/dL POC Glucose (mg/dL) 295 H 226 H 239 H (75-99) mg/dL 07/24/17 07/24/17 07/24/17 Range/Units 07:24 08:01 08:01 WBC 12.1 H (3.8-10.6) k/uL RBC 3.42 L (4.30-5.90) m/uL Hgb 11.3 L (13.0-17.5) gm/dL Hct 32.5 L (39.0-53.0) % Neutrophils # 11.4 H (1.3-7.7) k/uL Lymphocytes # 0.4 L (1.0-4.8) k/uL Sodium 136 L (137-145) mmol/L Carbon Dioxide 16 L (22-30) mmol/L BUN 32 H (9-20) mg/dL Glucose 169 H (74-99) mg/dL POC Glucose (mg/dL) 181 H (75-99) mg/dL Microbiology - Last 24 Hours (Table) 07/22/17 13:00 Gram Stain - Final Sputum Sputum Culture - Final 07/21/17 22:01 Blood Culture - Preliminary Blood No Growth after 48 hours 07/21/17 21:54 Blood Culture - Preliminary Blood No Growth after 48 hours 07/21/17 23:55 Urine Culture - Final Urine,Clean Catch 07/23/17 04:45 Stool Culture - Preliminary Stool Assessment and Plan Assessment: Assessment Acute hypoxic respiratory failure Acute healthcare associated pneumonia, left lower lobe Acute exacerbation of severe persistent asthma Gastroenteritis of unclear etiology 2 out of 4 SIRS, sepsis Normochromic normocytic anemia Hyponatremia with dehydration Acute kidney injury Mild protein calorie malnutrition UTI present on admission Hypertension Obesity Dyslipidemia Coronary artery disease BPH Peripheral neuropathy Plan Patient is stable from a pulmonary standpoint for discharge O2 to maintain saturation greater than or equal to 90% Antibiotics: per ID IVF hydration Blood, sputum, urine, stool cultures Stool for cdiff, negative Duonebs Repeat CXR reviewed Pulmicort Singulair Solumedrol taper Incentive spirometry and pulmonary hygiene Mucinex Monitor renal function and urine output Avoid nephrotoxins GI and DVT prophylaxis: GI and DVT prophylaxis Thank you for this consultation. We will continue to follow along. I performed an examination of the patient and discussed their management with the nurse practitioner. I have reviewed the nurse practitioner's note and agree with the documented findings and plan of care.
[2017-07-24 11:26] LABS: Glucose,Whole Blood 195 mg/dL (75-99)
[2017-07-24] MEDS: PYRIDOXINE 50 MG TAB PO SCH (11:59)
[2017-07-24] MEDS ORDERED: ERGOCALCIFEROL 50,000 UNIT CAP PO SCH (12:00)
--- NOTE | 2017-07-24 14:09 | PN ---
PROGRESS NOTE DATE OF SERVICE: 07/24/2017 REASON FOR FOLLOWUP: 1. Left lower lobe pneumonia, possibly community acquired. 2. Diarrhea, resolved. INTERVAL HISTORY: The patient is currently afebrile. He is breathing more comfortably. He denies any significant chest pain. Occasional cough. No abdominal pain. His diarrhea has resolved. PHYSICAL EXAMINATION: On examination, blood pressure 156/80, pulse of 80, temperature 97.1. He is 97% on room air. General description is an elderly male up in the chair in no distress. RESPIRATORY SYSTEM: Unlabored breathing, clear to auscultation anteriorly. HEART: S1, S2. Regular rate and rhythm. ABDOMEN: Soft, no tenderness. LABS: Hemoglobin 11.3, white count 12.1. BUN of 32, creatinine 1.14. DIAGNOSTIC IMPRESSION AND PLAN: 1. Patient with left lower lobe pneumonia likely community acquired, overall improvement. To finish therapy with oral Levaquin 750 mg daily for 5 days with close outpatient followup. 2. Diarrhea, resolved. Infectious workup is negative. No need for any Flagyl on discharge. May use Questran as needed but not without any other medication. MMODL / IJN: [id number] /
--- NOTE | 2017-07-24 17:09 | DS ---
DISCHARGE SUMMARY FINAL DIAGNOSES: 1. Acute left lobe pneumonia with possibly gram-negative. 2. Acute asthma and chronic obstructive pulmonary disease acute exacerbation. 3. Acute diarrhea. C difficile colitis ruled out. 4. Hypertension. 5. Obesity with body mass index of 38.6. 6. History of coronary artery disease. DISCHARGE DISPOSITION: The patient will be discharged in stable condition with guarded prognosis. Total time taken 35 minutes. HISTORY OF PRESENT ILLNESS: This 82-year-old woman with a past medical history of multiple medical problems was admitted with acute left lower lobe pneumonia possibly gram-negative. Patient also had acute asthma COPD exacerbation. Treated with bronchodilators, steroids and antibiotics and improved significantly. Diarrhea was treated symptomatically by Dr. Dudley. Medication monitored. Patient improved significantly. Patient will be discharged in stable condition with guarded prognosis with further plans to follow up with primary physician and consultants in the outpatient setting. Total time 35 minutes. On exam, vitals are stable. Cardiovascular: S1, S2. Respiratory: Chest emphysematous. Bilateral scattered rhonchi and crackles. DISCHARGE ADVICE: 1. Diet is cardiac. 2. Activity limited until followup. 3. Follow up with Dr. Gonzalez in 2-3 days. 4. Follow with Drs. Vianey Dixon and JANE Alas as recommended. MEDICATIONS: 1. Tylenol 650 q.6h p.r.n. 2. Zyloprim 100 mg p.o. daily. 3. Aspirin 81 mg p.o. daily. 4. Vitamin D3 1000 daily. 5. Cholestyramine 4 g p.o. b.i.d. 6. Vitamin B12 500 mg p.o. daily. 7. Vitamin D2 50,000 daily. 8. Esomeprazole 40 mg p.o. daily. 9. Flovent 2 puffs b.i.d. 10.Lasix 20 mg p.o. daily. 11.Mucinex 1200 mg p.o. b.i.d. 12.DuoNeb q.i.d. and p.r.n. 13.Levaquin 750 p.o. daily for 5 days. 14.ProAmatine 10 mg p.o. b.i.d. 15.Singulair 10 mg p.o. daily. 16.Klor-Con 10 mg p.o. q.a.m. 17.Prednisone taper that will be 40 mg daily for 3 days, 30 for 3 days, 20 for 3 days, 10 for 3 days and stop. 18.Vitamin B6 100 mg p.o. daily. 19.Flomax 0.4 daily. MMODL / IJN: [id number] /
== END 2017-07-24 15:05 | disposition home or self-care (01) | DRG 177 ==
LOC: 4MS4W 19:58
PROVIDERS: ADMIT Internal Medicine; ATTEND Internal Medicine
DX: J15.6 Pneumonia due to other Gram-negative bacteria (principal); J96.01 Acute respiratory failure with hypoxia; A09 Infectious gastroenteritis and colitis, unspecified; E44.1 Mild protein-calorie malnutrition; E87.1 Hypo-osmolality and hyponatremia; J44.0 Chronic obstructive pulmonary disease with (acute) lower respiratory infection; J44.1 Chronic obstructive pulmonary disease with (acute) exacerbation; J45.51 Severe persistent asthma with (acute) exacerbation; N17.9 Acute kidney failure, unspecified; N39.0 Urinary tract infection, site not specified; D64.9 Anemia, unspecified; E66.9 Obesity, unspecified; E78.5 Hyperlipidemia, unspecified; E86.0 Dehydration; G62.9 Polyneuropathy, unspecified; I10 Essential (primary) hypertension; I25.10 Atherosclerotic heart disease of native coronary artery without angina pectoris; K21.9 Gastro-esophageal reflux disease without esophagitis; K43.9 Ventral hernia without obstruction or gangrene; M19.90 Unspecified osteoarthritis, unspecified site; N40.0 Benign prostatic hyperplasia without lower urinary tract symptoms; Y95 Nosocomial condition; Z68.38 Body mass index [BMI] 38.0-38.9, adult; Z77.090 Contact with and (suspected) exposure to asbestos; Z79.51 Long term (current) use of inhaled steroids; Z79.52 Long term (current) use of systemic steroids; Z79.82 Long term (current) use of aspirin; Z82.49 Family history of ischemic heart disease and other diseases of the circulatory system; Z96.1 Presence of intraocular lens; Z98.42 Cataract extraction status, left eye; Z98.41 Cataract extraction status, right eye; Z79.899 Other long term (current) drug therapy; M10.9 Gout, unspecified; Z80.9 Family history of malignant neoplasm, unspecified
CPT/HCPCS: 71045; 80048; 80053; 81001; 83036; 85025; 87040; 87045; 87046; 87070; 87086; 87205; 87324; 87449; 94640; 94667

== ENCOUNTER 2022-08-28 18:44 | Inpatient (IN) | payer MEDICARE, BC ==
[2022-08-28 19:22] LABS: Basophils % (A) 0 %; Eosinophils # (A) 0.6 k/uL (0-0.7); Eosinophils % (A) 8 %; HCT 27.9 % (39.0-53.0); HGB 8.9 gm/dL (13.0-17.5); Lymphocytes # (A) 2.4 k/uL (1.0-4.8); Lymphocytes % (A) 35 %; MCH 30.3 pg (25.0-35.0); MCHC 31.8 g/dL (31.0-37.0); MCV 95.3 fL (80.0-100.0); Mean Platelet Volume 8.6; Monocytes # (A) 0.5 k/uL (0-1.0); Monocytes % (A) 7 %; Neutrophils # (A) 3.2 k/uL (1.3-7.7); Neutrophils % (A) 47 %; Platelet Count 240 k/uL (150-450); RBC 2.93 m/uL (4.30-5.90); RDW 14.7 % (11.5-15.5); WBC 6.9 k/uL (3.8-10.6)
[2022-08-28 19:26] LABS: Partial Thromboplastin Time 27.4 sec (22.0-30.0); Prothrombin Time 10.8 sec (9.0-12.0)
[2022-08-28 19:34] LABS: ALT 27 U/L (4-49); AST 31 U/L (17-59); African American GFR (CKD) 17 (>60 ml/min/1.73 sqM); Albumin 3.4 g/dL (3.5-5.0); Alkaline Phosphatase 130 U/L (38-126); Anion Gap 6 mmol/L; Blood Urea Nitrogen 69 mg/dL (9-20); Calcium 8.9 mg/dL (8.4-10.2); Carbon Dioxide 32 mmol/L (22-30); Chloride 94 mmol/L (98-107); Glucose 103 mg/dL (74-99); Non-African American GFR(CKD) 15 (>60 ml/min/1.73 sqM); Potassium 5.1 mmol/L (3.5-5.1); Sodium 132 mmol/L (137-145); Total Bilirubin 0.4 mg/dL (0.2-1.3); Total Protein 6.7 g/dL (6.3-8.2)
--- NOTE | 2022-08-28 20:27 | ED ---
General Adult HPI - General Chief complaint: Recheck/Abnormal Lab/Rx Stated complaint: Abnormal Labs Time Seen by Provider: 08/28/22 19:28 Source: patient Mode of arrival: EMS Limitations: no limitations - History of Present Illness Initial comments: 87-year-old male with past medical history significant for chronic kidney disease, COPD, CHF presents to the ED with chief complaint of kidney failure. Patient recently seen by his PCP and was advised to present to an ER for further evaluation. Notes that his GFR for the past 2 or 3 months have been ap proximately 21-25% however has dropped to 16% following recent diuresis and increasing his Lasix during recent admission to [facility] for CHF symptoms. Was seen at [facility] and his television news photographer requested that the patient be transferred to [place] for nephrology con sultation. At this time patient has no complaints. Denies chest pain, shortness of breath, abdominal pain. - Related Data Home Medications Medication Instructions Recorded Confirmed Montelukast [Singulair] 10 mg PO DAILY 07/30/15 08/28/22 Tamsulosin HCl [Flomax] 0.4 mg PO DAILY 07/21/17 08/28/22 Apixaban [Eliquis] 2.5 mg PO BID 08/28/22 08/28/22 Cholecalciferol [Vitamin D3 (25 25 mcg PO DAILY 08/28/22 08/28/22 Mcg = 1000 Iu)] Cyanocobalamin (Vitamin B-12) 1,000 mcg PO DAILY 08/28/22 08/28/22 [Vitamin B-12] Folic Acid 1 mg PO DAILY 08/28/22 08/28/22 Furosemide [Lasix] 80 mg PO DAILY 08/28/22 08/28/22 Lovastatin [Mevacor] 20 mg PO HS 08/28/22 08/28/22 allopurinoL 200 mg PO DAILY 08/28/22 08/28/22 Allergies Allergy/AdvReac Type Severity Reaction Status Date / Time prednisone Allergy Hallucinati Verified 08/28/22 19:45 ons Review of Systems ROS Statement: Those systems with pertinent positive or pertinent negative responses have been documented in the HPI. ROS Other: All systems not noted in ROS Statement are negative. Past Medical History Past Medical History: Asthma, Heart Failure, GERD/Reflux, Hyperlipidemia, Prostate Disorder Additional Past Medical History / Comment(s): HYPOTENSION, PAST ANEMIA USED TO TAKE IRON SUPPLEMENTS, SEASOANL ALLERGIES, ENLARGED PROSTATE. GOUT. NEUROPATHY History of Any Multi-Drug Resistant Organisms: None Reported Past Surgical History: Hernia Repair, Orthopedic Surgery Additional Past Surgical History / Comment(s): FOOT SURG(.scraped bones- ancelmo 5th toes), cataracts- lens implants, [facility] HERNIA REPAIR W/MESH Past Anesthesia/Blood Transfusion Reactions: No Reported Reaction Past Psychological History: No Psychological Hx Reported Past Alcohol Use History: Daily Past Drug Use History: None Reported - Past Family History Brother(s) Family Medical History: Cancer, Coronary Artery Disease (CAD) Mother History Unknown: Yes Family Medical History: No Reported History Additional Family Medical History / Comment(s): " from natural causes" Father Additional Family Medical History / Comment(s): from black lung, 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 [place] General Exam Limitations: no limitations, language barrier (Hard of hearing) General appearance: alert, in no apparent distress Eye exam: Present: normal appearance Respiratory exam: Present: normal lung sounds bilaterally Cardiovascular Exam: Present: regular rate, bradycardia GI/Abdominal exam: Present: soft Neurological exam: Present: alert, oriented X3 Psychiatric exam: Present: normal affect, normal mood Skin exam: Present: warm, dry Course Vital Signs 08/28/22 08/28/22 08/28/22 18:50 19:07 19:10 Temperature 98 F Pulse Rate 57 L 65 Respiratory 16 20 20 Rate Blood Pressure 119/56 122/84 O2 Sat by Pulse 100 99 Oximetry Medical Decision Making - Medical Decision Making Was pt. sent in by a medical professional or institution (, PA, LIFE SKILLS INSTRUCTOR, urgent care, hospital, or jail...) When possible be specific @ -Sent in from [facility] via transfer Did you speak to anyone other than the patient for history (EMS, parent, family, police, friend...)? What history was obtained from this source @ -Dr. Carey accepted transfer from [facility] Did you review nursing and triage notes (agree or disagree)? Why? @ -I reviewed and agree with nursing and triage notes Were old charts reviewed (outside hosp., previous admission, EMS record, old EKG, old radiological studies, urgent care reports/EKG's, jail records)? Report findings @ -Records from [facility] from today reviewed showing that patient recently had labs from his PCP Dr. Ashraf and was found to have a declining GFR. Was subsequently seen at [facility] and transferred here. Please see HPI for further details. Differential Diagnosis (chest pain, altered mental status, abdominal pain women, abdominal pain men, vaginal bleeding, weakness, fever, dyspnea, syncope, headache, dizziness, GI bleed, back pain, seizure, CVA, palpatations, mental health, musculoskeletal)? @ -Differential Dyspnea: Coronary syndrome, arrhythmia, tamponade, asthma, COPD, pulmonary embolism, pneumonia, pneumothorax, pulmonary effusion, anaphylaxis, diabetic ketoacidosis, flailed chest, pulmonary contusion, diaphragmatic rupture, anemia, neuromuscular, this is not meant to be an all-inclusive list. EKG interpreted by me (3pts min.). @ -As above X-rays interpreted by me (1pt min.). @ -Chest x-ray showed posterior pleural effusions. CT interpreted by me (1pt min.). @ -None done U/S interpreted by me (1pt. min.). @ -None done What testing was considered but not performed or refused? (CT, X-rays, U/S, labs)? Why? @ -None What meds were considered but not given or refused? Why? @ -None Did you discuss the management of the patient with other professionals (professionals i.e. , [employer], LIFE SKILLS INSTRUCTOR, lab, RT, psych nurse, social service technician, kitchen designer, te acher, public information officer, case advocate)? Give summary @ -Spoke to Jayjay SAENZ, who accepted admission to Dr. yLnn Was smoking cessation discussed for >3mins.? @ -No Was critical care preformed (if so, how long)? @ -No Were there social determinants of health that impacted care today? How? (Homelessness, low income, unemployed, alcoholism, drug addiction, transportation, low edu. Level, literacy, decrease access to med. care, senior care, rehab)? @ -No Was there de-escalation of care discussed even if they declined (Discuss DNR or withdrawal of care, Hospice)? DNR status @ -No What co-morbidities impacted this encounter? (DM, HTN, Smoking, COPD, CAD, Cancer, CVA, ARF, Chemo, Hep., AIDS, mental health diagnosis, sleep apnea, morbid obesity)? @ -COPD Was patient admitted / discharged? Hospital course, mention meds given and route, prescriptions, significant lab abnormalities, going to OR and other pertinent info. @ -Admitted. CBC significant for an anemia at 8.9. Her baseline at 11. Additionally chemistry shows hyponatremia at 132, BUS and 69, creatinine 3.57 elevated from baseline however baseline labs here from 5 years ago. BNP 12,800. Chest x-ray show no acute process. Undiagnosed new problem with uncertain prognosis? @ -No Drug Therapy requiring intensive monitoring for toxicity (Heparin, Nitro, Insulin, Cardizem)? @ -No Were any procedures done? @ -No Diagnosis/symptom? @ -Acute kidney injury, CHF Acute, or Chronic, or Acute on Chronic? @ -Acute on chronic Uncomplicated (without systemic symptoms) or Complicated (systemic symptoms)? @ -Uncomplicated Side effects of treatment? @ -No Exacerbation, Progression, or Severe Exacerbation? @ -No Poses a threat to life or bodily function? How? (Chest pain, USA, NH, pneumonia, PE, COPD, DKA, ARF, appy, cholecystitis, CVA, Diverticulitis, Homicidal, Suicidal, threat to staff... and all critical care pts) @ -No - Lab Data Result diagrams: 08/28/22 19:01 08/28/22 19:01 Lab Results 08/28/22 08/28/22 08/28/22 Range/Units 19:01 19:01 19:01 WBC 6.9 (3.8-10.6) k/uL RBC 2.93 L (4.30-5.90) m/uL Hgb 8.9 L (13.0-17.5) gm/dL Hct 27.9 L (39.0-53.0) % MCV 95.3 (80.0-100.0) fL MCH 30.3 (25.0-35.0) pg MCHC 31.8 (31.0-37.0) g/dL RDW 14.7 (11.5-15.5) % Plt Count 240 (150-450) k/uL MPV 8.6 Neutrophils % 47 % Lymphocytes % 35 % Monocytes % 7 % Eosinophils % 8 % Basophils % 0 % Neutrophils # 3.2 (1.3-7.7) k/uL Lymphocytes # 2.4 (1.0-4.8) k/uL Monocytes # 0.5 (0-1.0) k/uL Eosinophils # 0.6 (0-0.7) k/uL Basophils # 0.0 (0-0.2) k/uL PT 10.8 (9.0-12.0) sec INR 1.0 (<1.2) APTT 27.4 (22.0-30.0) sec Sodium 132 L (137-145) mmol/L Potassium 5.1 (3.5-5.1) mmol/L Chloride 94 L (98-107) mmol/L Carbon Dioxide 32 H (22-30) mmol/L Anion Gap 6 mmol/L BUN 69 H (9-20) mg/dL Creatinine 3.57 H (0.66-1.25) mg/dL Est GFR (CKD-EPI)AfAm 17 (>60 ml/min/1.73 sqM) Est GFR (CKD-EPI)NonAf 15 (>60 ml/min/1.73 sqM) Glucose 103 H (74-99) mg/dL Calcium 8.9 (8.4-10.2) mg/dL Total Bilirubin 0.4 (0.2-1.3) mg/dL AST 31 (17-59) U/L ALT 27 (4-49) U/L Alkaline Phosphatase 130 H (38-126) U/L Troponin I (0.000-0.034) ng/mL NT-Pro-B Natriuret Pep pg/mL Total Protein 6.7 (6.3-8.2) g/dL Albumin 3.4 L (3.5-5.0) g/dL 08/28/22 08/28/22 Range/Units 19:01 20:23 WBC (3.8-10.6) k/uL RBC (4.30-5.90) m/uL Hgb (13.0-17.5) gm/dL Hct (39.0-53.0) % MCV (80.0-100.0) fL MCH (25.0-35.0) pg MCHC (31.0-37.0) g/dL RDW (11.5-15.5) % Plt Count (150-450) k/uL MPV Neutrophils % % Lymphocytes % % Monocytes % % Eosinophils % % Basophils % % Neutrophils # (1.3-7.7) k/uL Lymphocytes # (1.0-4.8) k/uL Monocytes # (0-1.0) k/uL Eosinophils # (0-0.7) k/uL Basophils # (0-0.2) k/uL PT (9.0-12.0) sec INR (<1.2) APTT (22.0-30.0) sec Sodium (137-145) mmol/L Potassium (3.5-5.1) mmol/L Chloride (98-107) mmol/L Carbon Dioxide (22-30) mmol/L Anion Gap mmol/L BUN (9-20) mg/dL Creatinine (0.66-1.25) mg/dL Est GFR (CKD-EPI)AfAm (>60 ml/min/1.73 sqM) Est GFR (CKD-EPI)NonAf (>60 ml/min/1.73 sqM) Glucose (74-99) mg/dL Calcium (8.4-10.2) mg/dL Total Bilirubin (0.2-1.3) mg/dL AST (17-59) U/L ALT (4-49) U/L Alkaline Phosphatase (38-126) U/L Troponin I <0.012 (0.000-0.034) ng/mL NT-Pro-B Natriuret Pep 09811 pg/mL Total Protein (6.3-8.2) g/dL Albumin (3.5-5.0) g/dL - EKG Data EKG Comments: EKG shows A. fib with slow ventricular response at a rate of [address]-T wave changes, QRS 126, QT/QTc 468/421. Disposition Clinical Impression: OMA (acute kidney injury), Chronic kidney disease, CHF (congestive heart failure) Disposition: ADMITTED IP TO THIS HOSP Referrals: Doris Ashraf DO [Primary Care Provider] - 1-2 days Time of Disposition: 20:33
--- NOTE | 2022-08-28 20:57 | XR ---
EXAMINATION TYPE: XR chest 2V DATE OF EXAM: 08/28/2022 COMPARISON: 07/23/2017 INDICATION: Short of breath TECHNIQUE: Frontal and lateral views of the chest are obtained. FINDINGS: The heart size is normal. The pulmonary vasculature is normal. Posterior pleural effusions are present bilaterally, greater on the left.. IMPRESSION: 1. Posterior pleural effusions
[2022-08-28] MEDS ORDERED: NALOXONE 0.4 MG/ML 1 ML VIAL IV PRN (21:15)
[2022-08-28] MEDS ORDERED: HYDROmorphone 1 MG/ML 1 ML SYRINGE IVP PRN (21:15)
[2022-08-28] MEDS ORDERED: HYDROmorphone 0.5 MG/0.5 ML SYRINGE IVP PRN (21:15)
[2022-08-28] MEDS: MELATONIN 5 MG TABLET PO PRN (23:47)
[2022-08-29] MEDS: ACETAMINOPHEN TAB 325 MG TAB PO PRN ×2 (03:25→21:02)
[2022-08-29 07:37] LABS: African American GFR (CKD) 18 (>60 ml/min/1.73 sqM); Anion Gap 8 mmol/L; Blood Urea Nitrogen 64 mg/dL (9-20); Calcium 8.8 mg/dL (8.4-10.2); Carbon Dioxide 30 mmol/L (22-30); Chloride 95 mmol/L (98-107); Glucose 90 mg/dL (74-99); Magnesium 2.1 mg/dL (1.6-2.3); Non-African American GFR(CKD) 16 (>60 ml/min/1.73 sqM); Potassium 4.2 mmol/L (3.5-5.1); Sodium 133 mmol/L (137-145)
[2022-08-29] MEDS: CYANOCOBALAMIN 500 MCG TAB PO SCH (10:37)
[2022-08-29] MEDS: FOLIC ACID 1 MG TAB PO SCH (10:37)
[2022-08-29] MEDS: TAMSULOSIN 0.4 MG CAP.ER.24H PO SCH (10:37)
[2022-08-29] MEDS: MONTELUKAST 10 MG TAB PO SCH (10:37)
[2022-08-29] MEDS: CHOLECALCIFEROL 25 MCG (1000 IU) TABLET PO SCH (10:37)
[2022-08-29] MEDS ORDERED: FUROSEMIDE 80 MG TAB PO SCH (11:15)
--- NOTE | 2022-08-29 11:18 | P.CRDCN ---
History of Present Illness Consult date: 08/29/22 Reason for Consult (text): PE Consult reason: congestive heart failure History of present illness: History of present illness: This is an 87-year-old male patient of Dr. Rhodes with past medical history of hypertension, hyperlipidemia, valvular heart disease, chronic lower extremity edema, chronic kidney disease. Patient was last seen in the office on 08/14/2022 at which time no medication changes were made. He was recently at [facility] and records were to be obtained. Patient apparently was hospitalized at [place] for congestive heart failure and his Lasix was increased. We have been asked to evaluate the patient for heart failure. Nursing contacted us this morning with concern for slow heart rate as patient was in the 30s and 40s. EKG is atrial fibrillation with a slow ventricular rate. Patient presented to the hospital as he was contacted by his physicians due to acute kidney injury and payal castillos closely with nephrology. He denies having chest pain or shortness of breath. EKG atrial fibrillation with a slow ventricular rate Chest x-ray: Posterior pleural effusions. WBC 6.9, hemoglobin 8.9. Sodium 132, potassium 5.1 with repeat 4.2, BUN 64 and creatinine 3.34 improved from BUN 69 and creatinine 3.57. Troponin negative 1. ProBNP 12,800. Alkaline phosphatase 130. Home cardiac medications: Eliquis 2.5 mg twice daily, Lasix 80 mg daily, lovastatin 20 mg at bedtime. Echocardiogram 2020 revealed normal EF, mild a, [id number] MR, mild TR. Review Of Systems: At the time of my evaluation: Constitutional: No fever, no chills. No weakness, fatigue or lethargy. EENT: No headache. No dizziness. Lungs: No shortness of breath, cough, no sputum production. No wheezing. Cardiovascular: No chest pain, chronic lower extremity edema. No palpitations. No paroxysmal nocturnal dyspnea. No orthopnea. No lightheadedness or dizziness. No syncopal episodes. Abdominal: No abdominal pain. No nausea, vomiting. No diarrhea. No constipation. No bloody or tarry stools. Musculoskeletal: No myalgias. No muscle weakness, no frequent falls. No back pain. No neck pain. Integumentary: No wounds. No rash. No unusual bruising. Neurologic: No aphasia. No facial droop. No change in mentation. No head injury. No headache. Physical examination: Gen: This is an 87 year old male. He is resting in bed and appears to be comfortable. VS: reviewed. 121/52 HEENT: Head is atraumatic, normocephalic. Pupils equal, round. Sclerae is anicteric. NECK: Supple. No JVD. . LUNGS: Diminished to the bilateral bases. No wheezing. No intercostal retractions. HEART: Irregular rate and rhythm. Systolic murmur. Bradycardic. ABDOMEN: Soft No tenderness. EXTREMITIES: 1+ pedal edema. No calf tenderness. NEUROLOGICAL: Patient is awake, alert and oriented x3. 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 Note the patient is not on any rate control medications. Obtain TSH and free T4 Obtain 2-D echocardiogram and Doppler study to assess cardiac structure and function Telemetry monitoring Patient may require pacemaker implantation. Further recommendations to follow based upon clinical course Thank you kindly for this consultation. Nurse practitioner note has been reviewed, I agree with documented findings and plan of care. Patient was seen and examined. Past Medical History Past Medical History: Asthma, Heart Failure, COPD, GERD/Reflux, Hyperlipidemia, Prostate Disorder Additional Past Medical History / Comment(s): HYPOTENSION, PAST ANEMIA USED TO TAKE IRON SUPPLEMENTS, SEASONAL ALLERGIES, ENLARGED PROSTATE. GOUT. NEUROPATHY History of Any Multi-Drug Resistant Organisms: None Reported Past Surgical History: Hernia Repair, Orthopedic Surgery Additional Past Surgical History / Comment(s): FOOT SURG(.scraped bones- ancelmo 5th toes), cataracts- lens implants, [facility] HERNIA REPAIR W/MESH Past Anesthesia/Blood Transfusion Reactions: No Reported Reaction Past Psychological History: No Psychological Hx Reported Smoking Status: Never smoker Past Alcohol Use History: Occasional Additional Past Alcohol Use History / Comment(s): 3-5 mixed rinks(vodka) per day . 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 [place] Medications and Allergies Home Medications Medication Instructions Recorded Confirmed Type Montelukast [Singulair] 10 mg PO DAILY 07/30/15 08/28/22 History Tamsulosin HCl [Flomax] 0.4 mg PO DAILY 07/21/17 08/28/22 History Apixaban [Eliquis] 2.5 mg PO BID 08/28/22 08/28/22 History Cholecalciferol [Vitamin D3 (25 25 mcg PO DAILY 08/28/22 08/28/22 History Mcg = 1000 Iu)] Cyanocobalamin (Vitamin B-12) 1,000 mcg PO DAILY 08/28/22 08/28/22 History [Vitamin B-12] Folic Acid 1 mg PO DAILY 08/28/22 08/28/22 History Furosemide [Lasix] 80 mg PO DAILY 08/28/22 08/28/22 History Lovastatin [Mevacor] 20 mg PO HS 08/28/22 08/28/22 History allopurinoL 200 mg PO DAILY 08/28/22 08/28/22 History Allergies Allergy/AdvReac Type Severity Reaction Status Date / Time prednisone Allergy Hallucinati Verified 08/28/22 19:45 ons Physical Exam Vitals: Vital Signs Temp Pulse Pulse Resp BP BP BP 08/29/22 07:25 97.5 F L 50 L 16 121/52 08/29/22 02:00 97.5 F L 56 L 18 126/46 08/28/22 23:40 97.8 F 67 17 137/66 08/28/22 22:46 65 20 123/68 08/28/22 22:42 97.6 F 60 18 129/55 08/28/22 22:30 57 L 13 133/68 08/28/22 22:20 55 L 11 L 133/68 08/28/22 22:10 58 L 14 133/68 08/28/22 22:00 63 9 L 129/54 08/28/22 21:50 63 16 129/54 08/28/22 21:40 57 L 14 129/54 08/28/22 21:30 60 14 128/55 08/28/22 21:20 63 14 128/55 08/28/22 21:10 51 L 11 L 128/55 08/28/22 21:00 50 L 14 08/28/22 20:50 55 L 15 08/28/22 20:30 56 L 17 121/57 08/28/22 20:20 54 L 14 121/57 08/28/22 20:10 61 15 121/57 08/28/22 20:00 52 L 15 117/53 08/28/22 19:50 51 L 12 117/53 08/28/22 19:40 60 12 117/53 08/28/22 19:30 56 L 14 122/58 08/28/22 19:20 53 L 14 122/58 08/28/22 19:10 60 21 122/58 08/28/22 19:07 65 20 122/84 08/28/22 19:00 59 L 14 119/56 08/28/22 18:53 08/28/22 18:50 98 F 57 L 16 119/56 Pulse Ox 08/29/22 07:25 99 08/29/22 02:00 99 08/28/22 23:40 100 08/28/22 22:46 96 08/28/22 22:42 99 08/28/22 22:30 100 08/28/22 22:20 100 08/28/22 22:10 100 08/28/22 22:00 99 08/28/22 21:50 99 08/28/22 21:40 99 08/28/22 21:30 99 08/28/22 21:20 99 08/28/22 21:10 100 08/28/22 21:00 100 08/28/22 20:50 99 08/28/22 20:30 99 08/28/22 20:20 99 08/28/22 20:10 99 08/28/22 20:00 100 08/28/22 19:50 100 08/28/22 19:40 100 08/28/22 19:30 100 08/28/22 19:20 100 08/28/22 19:10 100 08/28/22 19:07 99 08/28/22 19:00 100 08/28/22 18:53 99 08/28/22 18:50 100 Intake and Output 08/28/22 08/29/22 08/29/22 22:59 06:59 14:59 Output Total 200 Balance -200 Output: Urine 200 Other: Weight 83.461 kg 83.461 kg Results 08/28/22 19:01 08/29/22 07:14 Cardiac Enzymes 08/28/22 08/28/22 Range/Units 19:01 19:01 AST 31 (17-59) U/L Troponin I <0.012 (0.000-0.034) ng/mL Coagulation 08/28/22 Range/Units 19:01 PT 10.8 (9.0-12.0) sec APTT 27.4 (22.0-30.0) sec CBC 08/28/22 Range/Units 19:01 WBC 6.9 (3.8-10.6) k/uL RBC 2.93 L (4.30-5.90) m/uL Hgb 8.9 L (13.0-17.5) gm/dL Hct 27.9 L (39.0-53.0) % Plt Count 240 (150-450) k/uL Comprehensive Metabolic Panel 08/28/22 08/29/22 Range/Units 19:01 07:14 Sodium 132 L 133 L (137-145) mmol/L Potassium 5.1 4.2 (3.5-5.1) mmol/L Chloride 94 L 95 L (98-107) mmol/L Carbon Dioxide 32 H 30 (22-30) mmol/L BUN 69 H 64 H (9-20) mg/dL Creatinine 3.57 H 3.34 H (0.66-1.25) mg/dL Glucose 103 H 90 (74-99) mg/dL Calcium 8.9 8.8 (8.4-10.2) mg/dL AST 31 (17-59) U/L ALT 27 (4-49) U/L Alkaline Phosphatase 130 H (38-126) U/L Total Protein 6.7 (6.3-8.2) g/dL Albumin 3.4 L (3.5-5.0) g/dL Current Medications Generic Name Dose Route Start Last Admin Trade Name Freq PRN Reason Stop Dose Admin Acetaminophen 650 mg 08/28/22 21:15 08/29/22 03:25 Acetaminophen Tab 325 Mg Tab PO 650 mg Q6HR PRN Administration Mild Pain or Fever > 100.5 Hydromorphone HCl 0.5 mg 08/28/22 21:15 Hydromorphone 0.5 Mg/0.5 Ml Syringe IVP Q3HR PRN Moderate Pain (Scale 4 to 6) Hydromorphone HCl 1 mg 08/28/22 21:15 Hydromorphone 1 Mg/Ml 1 Ml Syringe IVP Q3HR PRN Severe Pain (Scale 7 to 10) Melatonin 5 mg 08/28/22 23:26 08/28/22 23:47 Melatonin 5 Mg Tablet PO 5 mg HS PRN Administration insomnia Naloxone HCl 0.2 mg 08/28/22 21:15 Naloxone 0.4 Mg/Ml 1 Ml Vial IV Q2M PRN Opioid Reversal Intake and Output 08/28/22 08/29/22 08/29/22 22:59 06:59 14:59 Output Total 200 Balance -200 Output: Urine 200 Other: Weight 83.461 kg 83.461 kg 08/28/22 19:01 08/29/22 07:14
[2022-08-29] MEDS ORDERED: SODIUM CHLORIDE 0.9% 1,000 ML IV SCH (11:45)
--- NOTE | 2022-08-29 12:42 | P.NPCON ---
History of Present Illness - Reason for Consult acute renal failure - History of Present Illness Reason for consultation: Acute kidney injury on chronic kidney disease History of present illness: Patient is a 87-year-old male seen in consultation for acute kidney injury on chronic kidney disease. Patient has chronic kidney disease stage III with baseline creatinine in the range of 1.3-1.4 secondary to nephrosclerosis. Patient's creatinine on admission was 3.57 is 3.34 today. Patient was recently admitted at [facility] for CHF exacerbation and dose of Lasix was increased. Patient states he's been taking 80 mg of Lasix daily at home. Patient's his edema has improved. He admits to good urine output. No gross hematuria. Denies history of diabetes. No history of coronary artery disease. He does wear 3 L oxygen at home and is on the same dose at this time. Patient was seen by his primary care physician and was dobbs to go to the hospital due to acute kidney injury. Patient was also noted to be bradycardic and pacemaker placement is being considered by cardiology. Blood pressure is currently well controlled. Chest x-ray showed posterior pleural effusions. Lasix resumed at 4 0 mg orally once daily. Patient has history of diastolic CHF with mild aortic stenosis, mild to moderate mitral regurgitation and mild tricuspid regurgitation. Vital signs are stable. General: No acute distress. HEENT: Head exam is unremarkable. LUNGS: No audible rhonchi or wheezes. HEART: Rate and Rhythm are regular. ABDOMEN: Soft, nontender. EXTREMITITES: Trace edema. Past Medical History Past Medical History: Asthma, Heart Failure, COPD, GERD/Reflux, Hyperlipidemia, Prostate Disorder Additional Past Medical History / Comment(s): HYPOTENSION, PAST ANEMIA USED TO TAKE IRON SUPPLEMENTS, SEASONAL ALLERGIES, ENLARGED PROSTATE. GOUT. NEUROPATHY History of Any Multi-Drug Resistant Organisms: None Reported Past Surgical History: Hernia Repair, Orthopedic Surgery Additional Past Surgical History / Comment(s): FOOT SURG(.scraped bones- ancelmo 5th toes), cataracts- lens implants, [facility] HERNIA REPAIR W/MESH Past Anesthesia/Blood Transfusion Reactions: No Reported Reaction Past Psychological History: No Psychological Hx Reported Smoking Status: Never smoker Past Alcohol Use History: Occasional Additional Past Alcohol Use History / Comment(s): 3-5 mixed rinks(vodka) per day. 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 [place] Medications and Allergies Home Medications Medication Instructions Recorded Confirmed Type Montelukast [Singulair] 10 mg PO DAILY 07/30/15 08/28/22 History Tamsulosin HCl [Flomax] 0.4 mg PO DAILY 07/21/17 08/28/22 History Apixaban [Eliquis] 2.5 mg PO BID 08/28/22 08/28/22 History Cholecalciferol [Vitamin D3 (25 25 mcg PO DAILY 08/28/22 08/28/22 History Mcg = 1000 Iu)] Cyanocobalamin (Vitamin B-12) 1,000 mcg PO DAILY 08/28/22 08/28/22 History [Vitamin B-12] Folic Acid 1 mg PO DAILY 08/28/22 08/28/22 History Furosemide [Lasix] 80 mg PO DAILY 08/28/22 08/28/22 History Lovastatin [Mevacor] 20 mg PO HS 08/28/22 08/28/22 History allopurinoL 200 mg PO DAILY 08/28/22 08/28/22 History Allergies Allergy/AdvReac Type Severity Reaction Status Date / Time prednisone Allergy Hallucinati Verified 08/28/22 19:45 ons Physical Exam Vitals: Vital Signs Temp Pulse Pulse Resp BP BP BP 08/29/22 08:40 08/29/22 07:25 97.5 F L 50 L 16 121/52 08/29/22 02:00 97.5 F L 56 L 18 126/46 08/28/22 23:40 97.8 F 67 17 137/66 08/28/22 22:46 65 20 123/68 08/28/22 22:42 97.6 F 60 18 129/55 08/28/22 22:30 57 L 13 133/68 08/28/22 22:20 55 L 11 L 133/68 08/28/22 22:10 58 L 14 133/68 08/28/22 22:00 63 9 L 129/54 08/28/22 21:50 63 16 129/54 08/28/22 21:40 57 L 14 129/54 08/28/22 21:30 60 14 128/55 08/28/22 21:20 63 14 128/55 08/28/22 21:10 51 L 11 L 128/55 08/28/22 21:00 50 L 14 08/28/22 20:50 55 L 15 08/28/22 20:30 56 L 17 121/57 08/28/22 20:20 54 L 14 121/57 08/28/22 20:10 61 15 121/57 08/28/22 20:00 52 L 15 117/53 08/28/22 19:50 51 L 12 117/53 08/28/22 19:40 60 12 117/53 08/28/22 19:30 56 L 14 122/58 08/28/22 19:20 53 L 14 122/58 08/28/22 19:10 60 21 122/58 08/28/22 19:07 65 20 122/84 08/28/22 19:00 59 L 14 119/56 08/28/22 18:53 08/28/22 18:50 98 F 57 L 16 119/56 Pulse Ox 08/29/22 08:40 100 08/29/22 07:25 99 08/29/22 02:00 99 08/28/22 23:40 100 08/28/22 22:46 96 08/28/22 22:42 99 08/28/22 22:30 100 08/28/22 22:20 100 08/28/22 22:10 100 08/28/22 22:00 99 08/28/22 21:50 99 08/28/22 21:40 99 08/28/22 21:30 99 08/28/22 21:20 99 08/28/22 21:10 100 08/28/22 21:00 100 08/28/22 20:50 99 08/28/22 20:30 99 08/28/22 20:20 99 08/28/22 20:10 99 08/28/22 20:00 100 08/28/22 19:50 100 08/28/22 19:40 100 08/28/22 19:30 100 08/28/22 19:20 100 08/28/22 19:10 100 08/28/22 19:07 99 08/28/22 19:00 100 08/28/22 18:53 99 08/28/22 18:50 100 Intake and Output 08/28/22 08/29/22 08/29/22 22:59 06:59 14:59 Output Total 200 Balance -200 Output: Urine 200 Other: Voiding Method Incontinent External Catheter Weight 83.461 kg 83.461 kg Results - Lab Results Most recent lab results Calcium 8.8 mg/dL (8.4-10.2) 08/29/22 07:14 Magnesium 2.1 mg/dL (1.6-2.3) 08/29/22 07:14 08/28/22 19:01 08/29/22 07:14 Assessment and Plan Plan: assessment: 1. Acute kidney injury secondary to hemodynamic ATN secondary to bradycardia and diuresis. Creatinine 3.57 on admission and is 3.34 today. 2. Chronic kidney disease stage IIIa, baseline creatinine 1.3-1.4 secondary to nephrosclerosis. Patient states recently his GFR has been in the range of 20- 25% since last hospitalization at [place]. 3. Acute on chronic diastolic CHF with mild aortic stenosis and tricuspid regurgitation and mild to moderate mitral regurgitation. 4. Pleural effusions noted on chest x-ray. 5. A. fib with slow ventricular response being followed by cardiology. May need pacemaker. Plan: Lasix resumed at half dose. Stop IV fluids. Encourage oral intake. Check UA. Check renal ultrasound. Check bladder scan to make sure no urinary retention. Continue to monitor renal function and urine output. Follow-up echocardiogram. Thank you for the consultation. I will continue to follow the patient with you during his hospital stay.
--- NOTE | 2022-08-29 13:41 | US ---
EXAMINATION TYPE: US kidneys/renal and bladder DATE OF EXAM: 08/29/2022 COMPARISON: CT 2015 CLINICAL INDICATION: Male, 87 years old with history of oma; OMA EXAM MEASUREMENTS: Right Kidney: 13.3 x 6.0 x 5.6 cm Left Kidney: 12.7 x 6.1 x 5.6 cm Right Kidney: Enlarged. Left Kidney: Slightly enlarged. Anechoic area seen upper pole: 1.6 x 1.2 x 0.9 cm. Hyperechoic focus seen at mid: 1.0 x 0.6 x 0.5 cm. Bladder: Appears wnl Bilateral Jets seen: No IMPRESSION: 1. Right renal cyst 2. Nonobstructing left mid renal stone
[2022-08-29 17:04] LABS: Appearance,Urine Clear (Clear); Bilirubin,Urine Negative (Negative); Blood,Urine Negative (Negative); Color,Urine Yellow; Glucose,Urine (UA) Negative (Negative); Ketones,Urine Negative (Negative); Leukocyte Esterase,Urine Negative (Negative); Nitrite,Urine Negative (Negative); PH, Urine 6.5 (5.0-8.0); Protein,Urine Trace (Negative); Specific Gravity,Urine 1.013 (1.001-1.035); Urobilinogen,Urine <2.0 mg/dL (<2.0)
--- NOTE | 2022-08-29 17:43 | CA ---
Transthoracic Echo Report Name: Jesus Quispe Age: 87 Gender: M : 1935 Exam Date: 08/29/2022 16:09 Exam Location: [place] [facility] Ht (in): 69 Wt (lb): 184 Ordering Physician: Iliana Denise Attending/Referring Phys: [id number], Howie [employer] Operator Elsie Gonzalez [facility] Procedure CPT: Indications: LVF Cardiac Hx: Technical Quality: Fair Contrast 1: Lumason Total Dose (mL): 5 Contrast 2: Total Dose (mL): MEASUREMENTS (Male / Female) Normal Values 2D ECHO LV Diastolic Diameter PLAX 5.4 cm 4.2 - 5.9 / 3.9 - 5.3 cm LV Systolic Diameter PLAX 4.7 cm IVS Diastolic Thickness 0.8 cm 0.6 - 1.0 / 0.6 - 0.9 cm LVPW Diastolic Thickness 0.9 cm 0.6 - 1.0 / 0.6 - 0.9 cm LV Relative Wall Thickness 0.3 LVOT Diameter 2.0 cm LV Diastolic Volume MOD BP 107.1 cm??? 67 - 155 / 56 - 104 cm??? LV Systolic Volume MOD BP 52.6 cm??? 22 - 58 / 19 - 49 cm??? LV Ejection Fraction MOD BP 50.9 % >= 55 % LV Cardiac Index MOD BP 1046.0 cm???/min???m??? LV Diastolic Volume MOD 4C 127.9 cm??? LV Systolic Volume MOD 4C 58.0 cm??? LV Ejection Fraction MOD 4C 54.7 % LV Cardiac Index MOD 4C 1343.8 cm???/min???m??? LV Diastolic Length 4C 8.8 cm LV Systolic Length 4C 7.1 cm LV Diastolic Volume MOD 2C 86.6 cm??? LV Systolic Volume MOD 2C 44.6 cm??? LV Ejection Fraction MOD 2C 48.5 % LV Cardiac Index MOD 2C 805.7 cm???/min???m??? LV Diastolic Length 2C 8.4 cm LV Systolic Length 2C 6.5 cm M-MODE Aortic Root Diameter MM 3.1 cm LA Systolic Diameter MM 4.1 cm LA Ao Ratio MM 1.3 AV Cusp Separation MM 2.2 cm DOPPLER AV Peak Velocity 186.0 cm/s AV Peak Gradient 13.8 mmHg AV Mean Velocity 128.5 cm/s AV Mean Gradient 6.6 mmHg AV Velocity Time Integral 51.6 cm LVOT Peak Velocity 109.1 cm/s LVOT Peak Gradient 4.8 mmHg LVOT Velocity Time Integral 32.4 cm LVOT Stroke Volume 98.2 cm??? LVOT Stroke Volume Index 49.2 ml/m??? LVOT Cardiac Index 1885.2 cm???/min???m??? AV Area Cont Eq vti 1.9 cm??? AV Area Cont Eq pk 1.8 cm??? MV Peak Velocity 122.5 cm/s MV Peak Gradient 6.0 mmHg MV Mean Velocity 63.6 cm/s MV Mean Gradient 2.0 mmHg MV Velocity Time Integral 44.3 cm Mitral E Point Velocity 115.5 cm/s MV Deceleration Time 244.0 ms LV E' Lateral Velocity 8.2 cm/s Mitral E to LV E' Lateral Ratio 14.1 LV E' Septal Velocity 6.0 cm/s Mitral E to LV E' Septal Ratio 19.2 TR Peak Velocity 297.3 cm/s TR Peak Gradient 35.3 mmHg Right Atrial Pressure 8.0 mmHg Pulmonary Artery Systolic Pressu 43.3 mmHg Right Ventricular Systolic Press 43.3 mmHg FINDINGS Left Ventricle Left ventricular wall thickness normal. Mild left ventricular dilatation. Mildly decreased left ventricular ejection fraction. Left ventricular ejection fraction is estimated at 45-50%. Mildly reduced global left ventricular systolic function. Right Ventricle Severe right ventricular dilatation. Right Atrium Severe right atrial dilatation. Left Atrium Severe left atrial dilatation. Mitral Valve Mild mitral annular calcification. Fjjm-[id number]-ipurgauj mitral regurgitation. Aortic Valve Trileaflet aortic valve. Aortic valve sclerosis. No aortic regurgitation. Tricuspid Valve Structurally normal tricuspid valve. [id number] tricuspid regurgitation. Pulmonic Valve Structurally normal pulmonic valve. No pulmonic regurgitation. Pericardium No pericardial effusion. Aorta Normal size aortic root and proximal ascending aorta. CONCLUSIONS Mild LV systolic dysfunction with an ejection fraction of 45% Mild to moderate mitral regurgitation Previewed by: Augie Jason MD Dr. Suresh Tumma MD (Electronically Signed) Final Date: 29 August 2022 17:42
[2022-08-29] MEDS: ATORVASTATIN 10 MG TAB PO SCH (21:02)
[2022-08-29] MEDS: APIXABAN 2.5 MG TABLET PO SCH (21:02)
--- NOTE | 2022-08-29 22:08 | HP ---
HISTORY AND PHYSICAL CHIEF COMPLAINT: Abnormal labs. HISTORY OF PRESENT ILLNESS: This is an 87-year-old gentleman with a past medical history of multiple medical problems including COPD and CHF, who was found to have elevated creatinine by the primary care physician, and the patient was sent to [facility] for further evaluation and treatment. The creatinine was found to be elevated at 3.34. The baseline was around 1.37. Nephrology consultation in progress. There is no history of any fever or rigors. The patient is also receiving Lasix, and Cardiology is also seeing the patient. PAST MEDICAL HISTORY: Reviewed includes COPD and chronic kidney disease. Rest of the history and rest of the chart are also reviewed. HOME MEDICATIONS: Reviewed include Mevacor. Doses and rest of the medications are reviewed. ALLERGIES: Prednisone. FAMILY HISTORY: History of CAD in the family. SOCIAL HISTORY: Occasional alcohol intake. REVIEW OF SYSTEMS: Fourteen-point review is negative except as mentioned earlier. PHYSICAL EXAMINATION: VITAL SIGNS: Pulse is 56, blood pressure 126/47, respirations 18. HEENT: Conjunctivae are normal. Oral mucosa is dry. NECK: No jugular venous distention. CARDIOVASCULAR: S1 and S2. No murmur. RESPIRATORY: Breath sounds diminished at the bases. ABDOMEN: Soft. LEGS: No edema. NERVOUS SYSTEM: Nonfocal. SKIN: No ulcers or rashes. JOINTS: No active deforming arthropathy. LABORATORY DATA: Sodium 138. Rest of the labs are noted. ASSESSMENT: 1. Svabi-pj-vztnuju kidney disease. 2. Chronic kidney disease, stage 2 as baseline. 3. History of congestive heart failure with chronic diastolic dysfunction. 4. History of asthma and chronic obstructive pulmonary disease. 5. Hyperlipidemia. 6. Multiple complex medical issues. RECOMMENDATIONS AND DISCUSSION: In this 87-year-old gentleman presented with multiple complex medical issues, we will monitor the patient closely. Recommend cautious hydration. Cut down the dose of Lasix per Cardiology. Chest x-ray reviewed, does not show too much fluid overload at this time; but however, we will follow the patient closely with some pleural effusion noted. Closely follow with Cardiology and Nephrology. Once again, the prognosis is extremely guarded. Avoid nephrotoxic medications, and I would also recommend a remote tele also. EKG was reviewed, shows some bradycardia with nonspecific ST-T changes. Further recommendations to follow. See order for the details. MMODL / IJN: [id number] /
[2022-08-30 07:40] LABS: Basophils % (A) 0 %; Eosinophils # (A) 0.7 k/uL (0-0.7); Eosinophils % (A) 11 %; HCT 27.1 % (39.0-53.0); HGB 8.4 gm/dL (13.0-17.5); Lymphocytes # (A) 1.8 k/uL (1.0-4.8); Lymphocytes % (A) 28 %; MCH 29.9 pg (25.0-35.0); MCHC 30.9 g/dL (31.0-37.0); MCV 96.6 fL (80.0-100.0); Mean Platelet Volume 8.9; Monocytes # (A) 0.5 k/uL (0-1.0); Monocytes % (A) 9 %; Neutrophils # (A) 3.1 k/uL (1.3-7.7); Neutrophils % (A) 50 %; Platelet Count 247 k/uL (150-450); RDW 14.7 % (11.5-15.5); WBC 6.3 k/uL (3.8-10.6)
[2022-08-30 08:07] LABS: African American GFR (CKD) 20 (>60 ml/min/1.73 sqM); Anion Gap 8 mmol/L; Blood Urea Nitrogen 66 mg/dL (9-20); Calcium 8.8 mg/dL (8.4-10.2); Carbon Dioxide 30 mmol/L (22-30); Chloride 95 mmol/L (98-107); Glucose 86 mg/dL (74-99); Magnesium 2.1 mg/dL (1.6-2.3); Non-African American GFR(CKD) 17 (>60 ml/min/1.73 sqM); Potassium 4.4 mmol/L (3.5-5.1); Sodium 133 mmol/L (137-145)
[2022-08-30] MEDS: FUROSEMIDE 40 MG TAB PO SCH (08:28)
[2022-08-30] MEDS: TAMSULOSIN 0.4 MG CAP.ER.24H PO SCH (08:28)
[2022-08-30] MEDS: FOLIC ACID 1 MG TAB PO SCH (08:28)
[2022-08-30] MEDS: APIXABAN 2.5 MG TABLET PO SCH ×2 (08:29→19:52)
[2022-08-30] MEDS: CHOLECALCIFEROL 25 MCG (1000 IU) TABLET PO SCH (08:29)
[2022-08-30] MEDS: MONTELUKAST 10 MG TAB PO SCH (08:29)
[2022-08-30] MEDS: CYANOCOBALAMIN 500 MCG TAB PO SCH (08:29)
--- NOTE | 2022-08-30 10:02 | P.PN ---
Subjective Patient is seen in follow-up for acute kidney injury on chronic kidney disease. Renal function slowly improving. Has been voiding. No chest pain or shortness of breath. No vomiting or diarrhea. Heart rate in the 50s. Blood pressure stable. Vital signs are stable. General: No acute distress. HEENT: Head exam is unremarkable. LUNGS: No audible rhonchi or wheezes. HEART: Rate and Rhythm are regular. ABDOMEN: Soft, nontender. EXTREMITITES: No edema. Objective - Vital Signs Vital signs: Vital Signs Temp 97.8 F 08/30/22 08:00 Pulse 57 L 08/30/22 08:00 Resp 18 08/30/22 08:00 BP 116/47 08/30/22 08:00 Pulse Ox 92 L 08/30/22 08:00 FiO2 Intake & Output 08/29/22 08/30/22 08/30/22 18:59 06:59 18:59 Intake Total 540 Output Total 50 750 Balance 490 -750 Weight 83.461 kg Intake: Oral 540 Output: Urine 50 750 Other: Voiding Method Incontinent Incontinent Incontinent External Catheter External Catheter External Catheter - Labs CBC & Chem 7: 08/30/22 07:22 08/30/22 07:22 Labs: Abnormal Lab Results - Last 24 Hours (Table) 08/29/22 08/30/22 08/30/22 Range/Units 16:55 07:22 07:22 RBC 2.80 L (4.30-5.90) m/uL Hgb 8.4 L (13.0-17.5) gm/dL Hct 27.1 L (39.0-53.0) % MCHC 30.9 L (31.0-37.0) g/dL Sodium 133 L (137-145) mmol/L Chloride 95 L (98-107) mmol/L BUN 66 H (9-20) mg/dL Creatinine 3.15 H (0.66-1.25) mg/dL Urine Protein Trace H (Negative) Assessment and Plan Plan: assessment: 1. Acute kidney injury secondary to hemodynamic ATN secondary to bradycardia and diuresis. Creatinine 3.57 on admission and is 3.15 today. UA fairly benign. No hydronephrosis noted on kidney ultrasound. 2. Chronic kidney disease stage IIIa, baseline creatinine 1.3-1.4 secondary to nephrosclerosis. Patient states recently his GFR has been in the range of 20- 25% since last hospitalization at [facility]. 3. Acute on chronic systolic CHF ejection fraction of 45-50% with mild to moderate mitral and tricuspid regurgitation. 4. Pleural effusions noted on chest x-ray. 5. A. fib with slow ventricular response being followed by cardiology. May need pacemaker. Plan: Maintain oral Lasix. Encourage oral intake. Avoid nephrotoxins. Continue to monitor renal function and urine output.
--- NOTE | 2022-08-30 14:04 | P.PN ---
Subjective Progress Note Date: 08/30/22 PROGRESS NOTE The patient is an 87-year-old male with a history of hypertension, hyperlipidemia, chronic kidney disease who presented with symptoms of fatigue and worsening renal function. He is in atrial fibrillation with slow ventricular response. He denies any chest discomfort, dizziness or palpitati ons. He denies any nausea. He continues to be in atrial ablation with slow ventricular response. His echocardiogram showed an ejection fraction of 45-50% with mild to moderate mitral and tricuspid regurgitation. Medications: Lasix 40 mg daily, Lipitor 10 mg daily, Eliquis 0.5 mg twice a day PHYSICAL EXAMINATION: Blood pressure 106/50, heart rate 51 Lungs: Clear to auscultation] HEART: Irregular rate and rhythm, S1, S2. No S3. Systolic ejection murmur ABDOMEN: Soft, nontender, no organomegaly EXTREMETIES: No edema LAB: BUN 66, creatinine 3.15, potassium 4.4, hemoglobin 8.4 IMPRESSION: 1. Acute on chronic kidney injury 2. Congestive heart failure with preserved systolic function 3. Atrial fibrillation with slow ventricular response 4. Hyperlipidemia PLAN: 1. Continue present therapy 2. Follow her renal functions 3. Follow rhythm for decision regarding pacemaker, at this time stable 4. Depending on his progress further recommendations will be made Objective - Vital Signs Vital signs: Vital Signs Temp 97.6 F 08/30/22 11:34 Pulse 51 L 08/30/22 11:34 Resp 18 08/30/22 11:34 BP 106/49 08/30/22 11:34 Pulse Ox 91 L 08/30/22 11:34 FiO2 Intake & Output 08/29/22 08/30/22 08/30/22 18:59 06:59 18:59 Intake Total 540 240 Output Total 50 750 200 Balance 490 -750 40 Weight 83.461 kg Intake: Oral 540 240 Output: Urine 50 750 200 Other: Voiding Method Incontinent Incontinent Incontinent External Catheter External Catheter External Catheter - Labs CBC & Chem 7: 08/30/22 07:22 08/30/22 07:22 Labs: Abnormal Lab Results - Last 24 Hours (Table) 08/29/22 08/30/22 08/30/22 Range/Units 16:55 07:22 07:22 RBC 2.80 L (4.30-5.90) m/uL Hgb 8.4 L (13.0-17.5) gm/dL Hct 27.1 L (39.0-53.0) % MCHC 30.9 L (31.0-37.0) g/dL Sodium 133 L (137-145) mmol/L Chloride 95 L (98-107) mmol/L BUN 66 H (9-20) mg/dL Creatinine 3.15 H (0.66-1.25) mg/dL Urine Protein Trace H (Negative)
[2022-08-30] MEDS: ACETAMINOPHEN TAB 325 MG TAB PO PRN (19:51)
[2022-08-30] MEDS: ATORVASTATIN 10 MG TAB PO SCH (19:52)
[2022-08-30] MEDS: MELATONIN 5 MG TABLET PO PRN (19:52)
--- NOTE | 2022-08-30 21:23 | PN ---
PROGRESS NOTE DATE OF SERVICE: 08/30/2022 SUBJECTIVE: This is an 87-year-old gentleman admitted with acute on chronic renal failure, is being closely monitored. The patient has features of ATN secondary to bradycardia and diabetes per Nephrology. Multiple consultants are following the patient closely. OBJECTIVE: VITAL SIGNS: Pulse is 51, blood pressure 106/49, respirations 18. CHEST: A few scattered rhonchi. ABDOMEN: Soft. NERVOUS SYSTEM: Nonfocal. LABORATORY DATA: Creatinine 3.15. The rest of the labs are reviewed. ASSESSMENT: 1. Acute on chronic kidney disease. 2. Chronic kidney disease, stage 2 at baseline. 3. History of congestive heart failure with chronic diastolic dysfunction. 4. History of asthma, chronic obstructive pulmonary disease. 5. Hyperlipidemia. 6. Multiple medical issues. RECOMMENDATIONS AND DISCUSSION: Recommend to continue current management. Continue symptomatic treatment. Repeat labs tomorrow. Otherwise, closely follow with multiple consultants. Prognosis guarded. Further recommendations to follow. MMODL / IJN: [id number] /
[2022-08-31 08:23] LABS: Basophils % (A) 0 %; Eosinophils # (A) 0.6 k/uL (0-0.7); Eosinophils % (A) 9 %; HCT 29.1 % (39.0-53.0); HGB 9.5 gm/dL (13.0-17.5); Lymphocytes # (A) 2.2 k/uL (1.0-4.8); Lymphocytes % (A) 36 %; MCH 31.8 pg (25.0-35.0); MCHC 32.7 g/dL (31.0-37.0); Mean Platelet Volume 8.6; Monocytes # (A) 0.5 k/uL (0-1.0); Monocytes % (A) 8 %; Neutrophils # (A) 2.7 k/uL (1.3-7.7); Neutrophils % (A) 44 %; Platelet Count 250 k/uL (150-450); RDW 14.6 % (11.5-15.5); WBC 6.2 k/uL (3.8-10.6)
[2022-08-31 08:41] LABS: African American GFR (CKD) 20 (>60 ml/min/1.73 sqM); Anion Gap 10 mmol/L; Blood Urea Nitrogen 70 mg/dL (9-20); Calcium 9.1 mg/dL (8.4-10.2); Carbon Dioxide 29 mmol/L (22-30); Chloride 94 mmol/L (98-107); Glucose 87 mg/dL (74-99); Magnesium 2.1 mg/dL (1.6-2.3); Non-African American GFR(CKD) 17 (>60 ml/min/1.73 sqM); Potassium 4.8 mmol/L (3.5-5.1); Sodium 133 mmol/L (137-145)
[2022-08-31] MEDS: CHOLECALCIFEROL 25 MCG (1000 IU) TABLET PO SCH (08:54)
[2022-08-31] MEDS: MONTELUKAST 10 MG TAB PO SCH (08:54)
[2022-08-31] MEDS: APIXABAN 2.5 MG TABLET PO SCH ×2 (08:54→21:30)
[2022-08-31] MEDS: CYANOCOBALAMIN 500 MCG TAB PO SCH (08:54)
[2022-08-31] MEDS: FOLIC ACID 1 MG TAB PO SCH (08:54)
[2022-08-31] MEDS: FUROSEMIDE 40 MG TAB PO SCH (08:54)
[2022-08-31] MEDS: TAMSULOSIN 0.4 MG CAP.ER.24H PO SCH (08:54)
--- NOTE | 2022-08-31 10:54 | P.PN ---
Subjective Patient is seen in follow-up for acute kidney injury on chronic kidney disease. Renal function stable. Has been voiding. No chest pain or shortness of breath. No vomiting or diarrhea. Heart rate in the 50s. Blood pressure stable. Vital signs are stable. General: No acute distress. HEENT: Head exam is unremarkable. LUNGS: No audible rhonchi or wheezes. HEART: Rate and Rhythm are regular. ABDOMEN: Soft, nontender. EXTREMITITES: No edema. Objective - Vital Signs Vital signs: Vital Signs Temp 97.7 F 08/31/22 08:00 Pulse 56 L 08/31/22 08:00 Resp 18 08/31/22 08:00 BP 105/57 08/31/22 08:00 Pulse Ox 96 08/31/22 09:13 FiO2 Intake & Output 08/30/22 08/31/22 08/31/22 18:59 06:59 18:59 Intake Total 360 480 Output Total 200 500 75 Balance 160 -500 405 Intake: Oral 360 480 Output: Urine 200 500 75 Other: Voiding Method Incontinent Incontinent Incontinent External Catheter External Catheter External Catheter # Bowel Movements 2 - Labs CBC & Chem 7: 08/31/22 07:54 08/31/22 07:54 Labs: Abnormal Lab Results - Last 24 Hours (Table) 08/31/22 08/31/22 Range/Units 07:54 07:54 RBC 3.00 L (4.30-5.90) m/uL Hgb 9.5 L (13.0-17.5) gm/dL Hct 29.1 L (39.0-53.0) % Sodium 133 L (137-145) mmol/L Chloride 94 L (98-107) mmol/L BUN 70 H (9-20) mg/dL Creatinine 3.16 H (0.66-1.25) mg/dL Assessment and Plan Plan: assessment: 1. Acute kidney injury secondary to hemodynamic ATN secondary to bradycardia and diuresis. Creatinine 3.57 on admission and is stable at 3.16 today. UA fairly benign. No hydronephrosis noted on kidney ultrasound. 2. Chronic kidney disease stage IIIa, baseline creatinine 1.3-1.4 secondary to nephrosclerosis. Patient states recently his GFR has been in the range of 20- 25% since last hospitalization at [place]. 3. Acute on chronic systolic CHF ejection fraction of 45-50% with mild to moderate mitral and tricuspid regurgitation. 4. Pleural effusions noted on chest x-ray. Currently on room air. 5. A. fib with slow ventricular response being followed by cardiology. May need pacemaker. Plan: Maintain oral Lasix. Encourage oral intake. Avoid nephrotoxins. Continue to monitor renal function and urine output.
--- NOTE | 2022-08-31 13:17 | P.PN ---
Subjective Progress Note Date: 08/31/22 This is a pleasant 87 year old gentleman with a history of hypertension, hyperlipidemia, chronic kidney disease who presented with symptoms of fatigue and worsening renal function. He was in atrial fibrillation with slow ventricular response. Denies any chest discomfort, dizziness or palpitations. Heart rate has improved but remains on the low side with no significant pauses since 08/29/2022. Echocardiogram with Doppler study showed ejection fraction of 45-50% with mild to moderate mitral and tricuspid regurgitation. He is overall feeling well and has no complaints at this time. Objective - Vital Signs Vital signs: Vital Signs Temp 97.9 F 08/31/22 11:34 Pulse 60 08/31/22 11:34 Resp 16 08/31/22 11:34 BP 104/51 08/31/22 11:34 Pulse Ox 96 08/31/22 11:34 FiO2 Intake & Output 08/30/22 08/31/22 08/31/22 18:59 06:59 18:59 Intake Total 360 480 Output Total 200 500 75 Balance 160 -500 405 Intake: Oral 360 480 Output: Urine 200 500 75 Other: Voiding Method Incontinent Incontinent Incontinent External Catheter External Catheter External Catheter # Bowel Movements 2 - Exam Lungs: Clear to auscultation HEART: Irregular rate and rhythm, S1, S2. No S3. Systolic ejection murmur ABDOMEN: Soft, nontender, no organomegaly EXTREMETIES: No edema - Labs CBC & Chem 7: 08/31/22 07:54 08/31/22 07:54 Labs: Abnormal Lab Results - Last 24 Hours (Table) 08/31/22 08/31/22 Range/Units 07:54 07:54 RBC 3.00 L (4.30-5.90) m/uL Hgb 9.5 L (13.0-17.5) gm/dL Hct 29.1 L (39.0-53.0) % Sodium 133 L (137-145) mmol/L Chloride 94 L (98-107) mmol/L BUN 70 H (9-20) mg/dL Creatinine 3.16 H (0.66-1.25) mg/dL Assessment and Plan Assessment: 1. Acute on chronic kidney injury 2. Congestive heart failure with preserved systolic function 3. Persistent Atrial fibrillation with slow ventricular response 4. Hyperlipidemia Plan: From cardiology standpoint medications were reviewed and continue the same. Heart rate remained stable at this time. We will continue to follow this closely and make further recommendations regarding pacemaker if needed. W[employer] DIRECT[employer] note has been reviewed, I agree with a documented findings and plan of care. Patient was seen and examined.
[2022-08-31] MEDS ORDERED: SIMETHICONE 80 MG CHEWABLE PO PRN ×2 (15:18→15:40)
[2022-08-31] MEDS: ATORVASTATIN 10 MG TAB PO SCH (21:30)
[2022-08-31] MEDS: ACETAMINOPHEN TAB 325 MG TAB PO PRN (21:35)
[2022-08-31] MEDS: MELATONIN 5 MG TABLET PO PRN (21:35)
--- NOTE | 2022-08-31 23:33 | PN ---
PROGRESS NOTE DATE OF SERVICE: 08/31/2022 SUBJECTIVE: This is an 87-year-old gentleman admitted with acute on chronic kidney disease. His improvement is significant. No chest pain. No palpitations. No fever. OBJECTIVE: VITAL SIGNS: Pulse is 60, blood pressure 114/51, respirations 16. CHEST: Clear to auscultation. CARDIOVASCULAR: S1, S2. ABDOMEN: Soft. NERVOUS SYSTEM: Nonfocal. LABORATORY DATA: Creatinine is 3.16. A 2D echo with Doppler showed ejection fraction about 45%. ASSESSMENT: 1. Acute on chronic kidney disease. 2. Chronic kidney disease, stage 2 at baseline. 3. History of congestive heart failure with chronic systolic dysfunction, ejection fraction 40%. 4. History of asthma, chronic obstructive pulmonary disease. 5. Hyperlipidemia. 6. Multiple medical issues. RECOMMENDATIONS AND DISCUSSION: Recommend to continue current management. Continue symptomatic treatment. Repeat labs. Otherwise, avoid nephrotoxic medications. Closely follow with multiple consultants. Guarded prognosis. Further recommendations to follow. MMODL / IJN: [id number] /
[2022-09-01] MEDS: CYANOCOBALAMIN 500 MCG TAB PO SCH (08:11)
[2022-09-01] MEDS: MONTELUKAST 10 MG TAB PO SCH (08:11)
[2022-09-01] MEDS: FUROSEMIDE 40 MG TAB PO SCH (08:11)
[2022-09-01] MEDS: TAMSULOSIN 0.4 MG CAP.ER.24H PO SCH (08:11)
[2022-09-01] MEDS: APIXABAN 2.5 MG TABLET PO SCH ×2 (08:12→20:48)
[2022-09-01] MEDS: CHOLECALCIFEROL 25 MCG (1000 IU) TABLET PO SCH (08:12)
[2022-09-01] MEDS: FOLIC ACID 1 MG TAB PO SCH (08:12)
[2022-09-01 09:52] LABS: Basophils # (A) 0.04 X 10*3/uL (0.00-0.10); Basophils % (A) 0.6 %; Eosinophils # (A) 0.68 X 10*3/uL (0.04-0.35); Eosinophils % (A) 9.4 %; HCT 26.1 % (39.6-50.0); HGB 8.3 d/dL (12.0-15.0); Lymphocytes # (A) 2.68 X 10*3/uL (0.90-5.00); Lymphocytes % (A) 36.9 %; MCH 30.3 pg (27.0-32.0); MCHC 31.8 d/dL (32.0-37.0); MCV 95.3 FL (80.0-97.0); Mean Platelet Volume 11.4 FL (9.5-12.2); Monocytes # (A) 0.83 X 10*3/uL (0.20-1.00); Monocytes % (A) 11.4 %; NRBC Per 100 WBC 0 X 10*3/uL (0.00-0.01); Neutrophils # (A) 2.99 X 10*3/uL (1.80-7.70); Platelet Count 272 X 10*3/uL (140-440); RBC 2.74 X 10*6/uL (4.40-5.60); RDW 14.2 % (11.5-14.5); WBC 7.27 X 10*3/uL (4.50-10.00)
[2022-09-01 10:04] LABS: BUN/Creat Ratio 23.16 Ratio (12.00-20.00); Blood Urea Nitrogen 71.8 mg/dL (9.0-27.0); Calcium 9.2 mg/dL (8.7-10.3); Carbon Dioxide 27.2 mmol/L (21.6-31.8); Chloride 94 mmol/L (96-109); Glucose 87 mg/dL (70-110); Potassium 5.4 mmol/L (3.5-5.5); Sodium 134 mmol/L (135-145)
--- NOTE | 2022-09-01 11:19 | CDI ---
Documentation Clarification Form Date: 09/01/2022 10:54:09 AM From: Leanna Barclay RN, CCDS Admit Date: 08/28/2022 09:15:00 PM Patient Name: Jesus Quispe Visit Number: [id number] Discharge Date: ATTENTION: The Clinical Documentation Specialists (CDI) and [facility] Coding Staff appreciate your assistance in clarifying documentation. Please respond to the clarification below the line at the bottom and electronically sign. The CDI & [facility] Coding staff will review the response and follow-up if needed. Please note: Queries are made part of the Legal Health Record. If you have any questions, please contact the author of this message via ITS. Dr. Paul Hernandez Conflicting documentation has been found in the medical record. As attending physician, please provide clarification. H/P and subsequent progress notes: chronic kidney disease, stage 2 as baseline. 08/29 Nephrology consult and subsequent progress notes: chronic kidney disease stage IIIa, baseline creatine 1.3-1.4 secondary to nephrosclerosis. History/Risk Factors: Asthma, CHF, COPD, Hyperlipidemia, Prostate Disorder Clinical Indicators: 87-year-old male present with abnormal labs was ruled in for acute kidney injury on chronic kidney disease. 08/28 BUN 69 CR 3.57 GFR 15 08/29 BUN 64 CR 3.34 GFR 16 08/30 BUN 66 CR 3.15 GFR 17 08/31 BUN 70 CR 3.16 GFR 17 Treatment: Lasix resumed at half dose:(80 MG PO) decrease to 40 MG PO Daily Encourage oral intake Continue to monitor renal function and urine output Avoid Nephrotoxins Please clarify which diagnosis is most appropriate: [ ] Chronic kidney disease stage IIIa [ ] Chronic kidney disease stage 2 [ ] Other (please specify) [ ] Unable to determine (Template Last Revised: April 2020) History of chronic kidney disease stage IIIa Dictated By: Tania Reynoso Signed By: <Electronically signed by Tania FRIAS> 09/02/22 0604 [id number]
--- NOTE | 2022-09-01 11:52 | CDI ---
Documentation Clarification Form Date: 09/01/2022 11:28:53 AM From: Leanna Barclay RN, CCDS Admit Date: 08/28/2022 09:15:00 PM Patient Name: Jesus Quispe Visit Number: [id number] Discharge Date: ATTENTION: The Clinical Documentation Specialists (CDI) and [facility] Coding Staff appreciate your assistance in clarifying documentation. Please respond to the clarification below the line at the bottom and electronically sign. The CDI & [facility] Coding staff will review the response and follow-up if needed. Please note: Queries are made part of the Legal Health Record. If you have any questions, please contact the author of this message via ITS. Dr. Marlys Lynn Conflicting documentation has been found in the medical record. As attending physician, please provide clarification. 08/31 Attending progress note: History of congestive heart failure with chronic systolic dysfunction, ejection fraction 40% 08/30 Nephrology progress note and subsequent documentation: Acute on chronic systolic CHF ejection fraction of 45-50% with mild to moderate mitral and tricuspid regurgitation. History/Risk Factors: Asthma, CHF, COPD, Hyperlipidemia, Prostate Disorder Clinical Indicators: 87-year-old male present with abnormal labs was ruled in for acute kidney injury on chronic kidney disease. He has history of congestive heart failure. with recent admission at [facility] for CHF exacerbation and dose of Lasix was increased. Labs: Na+ 132, Bun 69, Creatinine 3.57, BNP on admission [address]. 08/28 CXR: Posterior pleural effusions 08/28 VS: 119/56 57 16 98 100 % 2/L NC Treatment: Lasix resumed at half dose:(80 MG PO) decrease to 40 MG PO Daily Encourage oral intake Continue to monitor renal function and urine output Avoid Nephrotoxins. Please clarify which diagnosis is most appropriate: [ ] Congestive heart failure with chronic systolic dysfunction [ ] Acute on chronic systolic CHF [ ] Other (please specify) [ ] Unable to determine (Template Last Revised: April 2020) Acute on chronic congestive heart failure, systolic dysfunction with an EF of 45-50% Tania Reynoso Signed By: <Electronically signed by Tania FRIAS> 09/02/22 0604 [email or web address]
[2022-09-01] MEDS ORDERED: SODIUM ZIRCONIUM CYCLOSILICATE 10 GM PACKET PO ONE (12:57)
--- NOTE | 2022-09-01 12:57 | P.PN ---
Subjective Patient is seen for follow-up for acute kidney injury on top of chronic kidney disease. Renal function has been stable. Serum creatinine staying at about 3.1 mg/dL. Potassium is 5.4 today. Patient is incontinent. Objective - Vital Signs Vital signs: Vital Signs Temp 98.1 F 09/01/22 07:16 Pulse 62 09/01/22 07:16 Resp 14 09/01/22 07:16 BP 134/56 09/01/22 07:16 Pulse Ox 95 09/01/22 12:42 FiO2 21 09/01/22 12:42 Intake & Output 08/31/22 09/01/22 09/01/22 18:59 06:59 18:59 Intake Total 720 Output Total 275 400 Balance 445 -400 Weight 84 kg Intake: Oral 720 Output: Urine 275 400 Other: Voiding Method Incontinent Incontinent Incontinent External Catheter External Catheter External Catheter - Exam Awake, comfortable, no acute distress Examination of the heart S1 and S2 Examination of the lungs bilateral breath sounds are heard Abdomen Examination lower extremity shows trace edema GLOVE [employer]KER exam grossly intact - Labs CBC & Chem 7: 09/01/22 04:41 09/01/22 04:41 Labs: Abnormal Lab Results - Last 24 Hours (Table) 09/01/22 09/01/22 Range/Units 04:41 04:41 RBC 2.74 L (4.40-5.60) X 10*6/uL Hgb 8.3 L (12.0-15.0) d/dL Hct 26.1 L (39.6-50.0) % MCHC 31.8 L (32.0-37.0) d/dL Eosinophils # 0.68 H (0.04-0.35) X 10*3/uL Sodium 134 L (135-145) mmol/L Chloride 94 L (96-109) mmol/L Anion Gap 12.80 H (4.00-12.00) mmol/L BUN 71.8 H (9.0-27.0) mg/dL Creatinine 3.1 H (0.6-1.5) mg/dL Est GFR (CKD-EPI) 19 L (>=60) BUN/Creatinine Ratio 23.16 H (12.00-20.00) Ratio Assessment and Plan Assessment: 1. Acute kidney injury secondary to hemodynamic ATN secondary to bradycardia and diuresis. Creatinine 3.57 on admission and is stable at 3.1 today. UA fairly benign. No hydronephrosis noted on kidney ultrasound. 2. Chronic kidney disease stage IIIa, baseline creatinine 1.3-1.4 secondary to nephrosclerosis. Patient states recently his GFR has been in the range of 20- 25% since last hospitalization at [place]. 3. Acute on chronic systolic CHF ejection fraction of 45-50% with mild to moderate mitral and tricuspid regurgitation. 4. Pleural effusions noted on chest x-ray. Currently on room air. 5. A. fib with slow ventricular response being followed by cardiology. Shavonne david pacemaker. 6. Mild hyperkalemia associated with underlying CK D. Maintain patient on low potassium diet and rule out urine retention. Plan: Follow-up as outpatient for CK D in 2-3 days [facility] Low potassium diet.
--- NOTE | 2022-09-01 14:22 | P.PN ---
Subjective HISTORY OF PRESENT ILLNESS: 08/31/22 This is a pleasant 87 year old gentleman with a history of hypertension, hyperlipidemia, chronic kidney disease who presented with symptoms of fatigue and worsening renal function. He was in atrial fibrillation with slow ventricular response. Denies any chest discomfort, dizziness or palpitations. Heart rate has improved but remains on the low side with no significant pauses since 08/29/2022. Echocardiogram with Doppler study showed ejection fraction of 45-50% with mild to moderate mitral and tricuspid regurgitation. He is overall feeling well and has no complaints at this time. 09/01/2022 Patient examined this afternoon at the bedside. Patients family present. Patient denies chest pain or pressure. Denies shortness of breath. Patient is not on telemetry. However, heart rates are documented in the 60s per nursing. He remains on oral lasix 40mg daily. Creatinine today 3.1. PHYSICAL EXAM: VITAL SIGNS: Reviewed. GENERAL: Well-developed in no acute distress. NECK: Supple. + JVD. No thyromegaly LUNGS: Respirations even and unlabored. Lungs diminished with crackles at the bases HEART: Irregular rate and rhythm. S1 and S2 heard. EXTREMITIES: Normal range of motion. No clubbing or cyanosis. Peripheral pulses intact. 1+ bilateral lower extremity edema ASSESSMENT: Acute on chronic kidney injury Congestive heart failure with preserved systolic function Persistent atrial fibrillation with slow ventricular response Hyperlipidemia PLAN: Continue current cardiac medications Discontinue oral lasix. Begin Bumex 1mg PO BID. Monitor kidney function. Begin telemetry monitoring. Patient to ambulate once connected to telemetry to evaluate for chronotropic incompetence. If CI present, may consider pacemaker, otherwise no indication for pacemaker at this time. Possible discharge tomorrow Further recommendations pending patient course Nurse practitioner note has been reviewed by physician. Signing provider agrees with the documented findings, assessment, and plan of care. patient was seen and examined personally by me. the case was discussed in detail with the nurse practitioner who felt with this documentation. In summary this patient has heart failure with mildly reduced ejection fraction in range of 40-45% with diastolic dysfunction. This patient also has acute on chronic CKD. his creatinine is 3.1 which is somewhat improved since admission. His GFR is in range of 30. Due to his bradycardia and his worsening renal function and we are not able to incorporate GDMT. We will increase his diuretic due to elevated JVD and crackles in b/l lung field today. Will order BMP for tomorrow. Order Ferritin levels for Anemia and order one dose of ferrlicit today to help with CHF in setting of anemia. Objective - Vital Signs Vital signs: Vital Signs Temp 98.1 F 09/01/22 07:16 Pulse 62 09/01/22 07:16 Resp 14 09/01/22 07:16 BP 134/56 09/01/22 07:16 Pulse Ox 95 09/01/22 12:42 FiO2 21 09/01/22 12:42 Intake & Output 08/31/22 09/01/22 09/01/22 18:59 06:59 18:59 Intake Total 720 Output Total 275 400 Balance 445 -400 Weight 84 kg Intake: Oral 720 Output: Urine 275 400 Other: Voiding Method Incontinent Incontinent Incontinent External Catheter External Catheter External Catheter - Labs CBC & Chem 7: 09/01/22 04:41 09/01/22 04:41 Labs: Abnormal Lab Results - Last 24 Hours (Table) 09/01/22 09/01/22 Range/Units 04:41 04:41 RBC 2.74 L (4.40-5.60) X 10*6/uL Hgb 8.3 L (12.0-15.0) d/dL Hct 26.1 L (39.6-50.0) % MCHC 31.8 L (32.0-37.0) d/dL Eosinophils # 0.68 H (0.04-0.35) X 10*3/uL Sodium 134 L (135-145) mmol/L Chloride 94 L (96-109) mmol/L Anion Gap 12.80 H (4.00-12.00) mmol/L BUN 71.8 H (9.0-27.0) mg/dL Creatinine 3.1 H (0.6-1.5) mg/dL Est GFR (CKD-EPI) 19 L (>=60) BUN/Creatinine Ratio 23.16 H (12.00-20.00) Ratio
[2022-09-01] MEDS: BUMETANIDE 1 MG TAB PO SCH (15:18)
[2022-09-01] MEDS: ATORVASTATIN 10 MG TAB PO SCH (20:48)
[2022-09-01] MEDS: ACETAMINOPHEN TAB 325 MG TAB PO PRN (20:48)
[2022-09-01] MEDS: MELATONIN 5 MG TABLET PO PRN (20:49)
[2022-09-01] MEDS ORDERED: SODIUM FERRIC GLUCONAT-SUCROSE 125 MG in SODIUM CHLORIDE 0.9% 100 ML IVPB ONE (21:00)
[2022-09-02 01:17] LABS: African American GFR (CKD) 19 (>60 ml/min/1.73 sqM); Anion Gap 7 mmol/L; Blood Urea Nitrogen 85 mg/dL (9-20); Carbon Dioxide 30 mmol/L (22-30); Chloride 92 mmol/L (98-107); Glucose 86 mg/dL (74-99); Non-African American GFR(CKD) 17 (>60 ml/min/1.73 sqM); Potassium 5.1 mmol/L (3.5-5.1); Sodium 129 mmol/L (137-145)
--- NOTE | 2022-09-02 06:04 | P.PN ---
Subjective Progress Note Date: 09/01/22 This is a 87-year-old male who was recently admitted with with acute on chronic kidney disease with cardiology and nephrology following. Patient also with bradycardia and cardiology recommending telemetry monitoring overnight to assess for CI with possible plans for pacemaker placement. Heart rates currently in the 60s and will monitor overnight. Kidney functions are stable and potassium slightly elevated and given a dose of lokelma recommending follow-up labs. Patient reports to feeling well and asking when he can go home. Patient is afebrile with no reports of chest pain or shortness of breath. No reported nausea or vomiting and patient tolerated diet. Would recommend renal diet with low potassium. Review of systems: Constitutional: No reports of fatigue, fever, or chills Cardiovascular: No reports of chest pain or palpitations Respiratory: No reports of shortness of breath or cough GI: No reports of nausea, no reports of vomiting, no diarrhea : No reports of dysuria or retention Neurovascular: No reports of generalized weakness All medications have been reviewed PHYSICAL EXAMINATION: GENERAL: The patient is alert and oriented x3, Well developed, well nourished. Elderly-appearing HEENT: Pupils are round and equally reacting to light. EOMI. no scleral icterus. No conjunctival pallor. Normocephalic, atraumatic. No pharyngeal erythema. No thyromegaly. CARDIOVASCULAR: S1 and S2 muffled PULMONARY: diminished breath sounds bilaterally with no wheezing or rhonchi n oted. ABDOMEN: soft. Nontender on exam. non-distended, normoactive bowel sounds. No palpable organomegaly. MUSCULOSKELETAL: No joint swelling or deformity. EXTREMITIES: No cyanosis, clubbing, or pedal edema. NEUROLOGICAL: Gross neurological examination did not reveal any focal deficits. SKIN: No rashes. Assessment: Acute on chronic kidney disease History of chronic kidney disease stage IIIa Acute on chronic congestive heart failure, systolic dysfunction with an EF of 45-50% History of asthma, COPD, not an exacerbation Hyperlipidemia history GI prophylaxis DVT prophylaxis Full code Plan: Recommend to continue with current medications and management with nephrology and cardiology following Patient was continued on Lasix and kidney function stable at 3.1 cardiology transitioning to Bumex recommending follow-up labs and close monitoring Cardiology evaluating for possible CI recommending continued telemetry monitoring with possible consideration of pacemaker We'll monitor overnight and follow-up with repeat labs Recommend renal diet and low potassium. Patient was given a dose of lokelma Today and will follow-up with repeat potassium Possible discharge in the next 24 hours The impression and plan of care has been dictated by Tania Reynoso, nurse practitioner as directed. Dr. Shane MD I have performed a history and examination and MDM of this patient, discussed the same with the dictator, and agree with the dictator's assessment and plan as written ,documented as a scribe. Based on total visit time, I have performed more than 50% of the visit. Any additional findings or plans will be noted. Objective - Vital Signs Vital signs: Vital Signs Temp 98.1 F 09/01/22 07:16 Pulse 62 09/01/22 07:16 Resp 14 09/01/22 07:16 BP 134/56 09/01/22 07:16 Pulse Ox 95 09/01/22 07:16 FiO2 Intake & Output 08/31/22 09/01/22 09/01/22 18:59 06:59 18:59 Intake Total 720 Output Total 275 400 Balance 445 -400 Weight 84 kg Intake: Oral 720 Output: Urine 275 400 Other: Voiding Method Incontinent Incontinent Incontinent External Catheter External Catheter External Catheter - Labs CBC & Chem 7: 09/01/22 04:41 09/02/22 00:01 Labs: Abnormal Lab Results - Last 24 Hours (Table) 09/01/22 09/01/22 Range/Units 04:41 04:41 RBC 2.74 L (4.40-5.60) X 10*6/uL Hgb 8.3 L (12.0-15.0) d/dL Hct 26.1 L (39.6-50.0) % MCHC 31.8 L (32.0-37.0) d/dL Eosinophils # 0.68 H (0.04-0.35) X 10*3/uL Sodium 134 L (135-145) mmol/L Chloride 94 L (96-109) mmol/L Anion Gap 12.80 H (4.00-12.00) mmol/L BUN 71.8 H (9.0-27.0) mg/dL Creatinine 3.1 H (0.6-1.5) mg/dL Est GFR (CKD-EPI) 19 L (>=60) BUN/Creatinine Ratio 23.16 H (12.00-20.00) Ratio
[2022-09-02] MEDS: MONTELUKAST 10 MG TAB PO SCH (09:45)
[2022-09-02] MEDS: FOLIC ACID 1 MG TAB PO SCH (09:45)
[2022-09-02] MEDS: BUMETANIDE 1 MG TAB PO SCH (09:45)
[2022-09-02] MEDS: APIXABAN 2.5 MG TABLET PO SCH (09:45)
[2022-09-02] MEDS: CYANOCOBALAMIN 500 MCG TAB PO SCH (09:45)
[2022-09-02] MEDS: CHOLECALCIFEROL 25 MCG (1000 IU) TABLET PO SCH (09:45)
[2022-09-02] MEDS: TAMSULOSIN 0.4 MG CAP.ER.24H PO SCH (09:46)
[2022-09-02 10:04] VITALS: RESP 16
[2022-09-02] MEDS ORDERED: DARBEPOETIN ALFA 60 MCG/0.3 ML SYRINGE SQ SCH (11:00)
[2022-09-02 11:09] LABS: Basophils # (A) 0.05 X 10*3/uL (0.00-0.10); Basophils % (A) 0.7 %; Eosinophils # (A) 0.63 X 10*3/uL (0.04-0.35); Eosinophils % (A) 8.9 %; HCT 27.2 % (39.6-50.0); HGB 8.5 d/dL (12.0-15.0); Lymphocytes # (A) 2.51 X 10*3/uL (0.90-5.00); Lymphocytes % (A) 35.6 %; MCH 30.1 pg (27.0-32.0); MCHC 31.3 d/dL (32.0-37.0); MCV 96.5 FL (80.0-97.0); Mean Platelet Volume 11.4 FL (9.5-12.2); Monocytes # (A) 0.83 X 10*3/uL (0.20-1.00); Monocytes % (A) 11.8 %; NRBC Per 100 WBC 0 X 10*3/uL (0.00-0.01); Neutrophils % (A) 42.6 %; Platelet Count 268 X 10*3/uL (140-440); RBC 2.82 X 10*6/uL (4.40-5.60); RDW 14.4 % (11.5-14.5); WBC 7.05 X 10*3/uL (4.50-10.00)
[2022-09-02 11:41] LABS: BUN/Creat Ratio 23.84 Ratio (12.00-20.00); Blood Urea Nitrogen 76.3 mg/dL (9.0-27.0); Calcium 9.4 mg/dL (8.7-10.3); Carbon Dioxide 28.5 mmol/L (21.6-31.8); Chloride 93 mmol/L (96-109); Glucose 87 mg/dL (70-110); Potassium 5.2 mmol/L (3.5-5.5); Sodium 134 mmol/L (135-145)
--- NOTE | 2022-09-02 12:30 | P.PN ---
Subjective Patient is seen for follow-up for acute kidney injury on top of chronic kidney disease. Renal function has been stable. Serum creatinine staying at about 3.1 mg/dL. It is 3.2 today. Diuretics switched to Bumex yesterday. 24 hour urine output charted at 675 mL. I'm not sure if this is accurate. Patient denies any shortness of breath. He is laying flat. Hemoglobin has been low at about 8.5 g/dL. I do not see any iron profile. Patient did receive IV iron yesterday. Ferritin was 1004. I believe this was drawn after the IV iron infusion or during the infusion. No active bleeding noted. Objective - Vital Signs Vital signs: Vital Signs Temp 98.6 F 09/02/22 07:19 Pulse 61 09/02/22 08:00 Resp 16 09/02/22 08:00 BP 128/56 09/02/22 07:19 Pulse Ox 93 L 09/02/22 07:19 FiO2 21 09/01/22 12:42 Intake & Output 09/01/22 09/02/22 09/02/22 18:59 06:59 18:59 Intake Total 340 Output Total 125 220 Balance -125 120 Intake: Intake, IV Titration 100 Amount Sodium Ferric Gluconat- 100 Sucrose 125 mg In Sodium Chloride 0.9% 100 ml @ 100 mls/hr IVPB ONCE ONE Rx#:[id number] Oral 240 Output: Urine 125 220 Other: Voiding Method Incontinent Incontinent Incontinent External Catheter External Catheter External Catheter # Voids 1 # Bowel Movements 1 - Exam Awake, comfortable, no acute distress Examination of the heart S1 and S2 Examination of the lungs bilateral breath sounds are heard Abdomen Examination lower extremity shows trace edema BODY PRESSER exam grossly intact - Labs CBC & Chem 7: 09/02/22 06:09 09/02/22 06:09 Labs: Abnormal Lab Results - Last 24 Hours (Table) 09/02/22 09/02/22 09/02/22 Range/Units 00:01 06:09 06:09 RBC 2.82 L (4.40-5.60) X 10*6/uL Hgb 8.5 L (12.0-15.0) d/dL Hct 27.2 L (39.6-50.0) % MCHC 31.3 L (32.0-37.0) d/dL Eosinophils # 0.63 H (0.04-0.35) X 10*3/uL Sodium 129 L 134 L (137-145) mmol/L Chloride 92 L 93 L (98-107) mmol/L Anion Gap 12.50 H (4.00-12.00) mmol/L BUN 85 H 76.3 H (9-20) mg/dL Creatinine 3.17 H 3.2 H (0.66-1.25) mg/dL Est GFR (CKD-EPI) 18 L (>=60) BUN/Creatinine Ratio 23.84 H (12.00-20.00) Ratio Ferritin 1004.0 H (22.0-322.0) ng/mL Assessment and Plan Assessment: 1. Acute kidney injury secondary to hemodynamic ATN secondary to bradycardia and diuresis. Creatinine 3.57 on admission and is staying around 3.1 mg/dL. UA fairly benign. No hydronephrosis noted on kidney ultrasound. 2. Chronic kidney disease stage IIIa, baseline creatinine 1.3-1.4 secondary to nephrosclerosis. Patient states recently his GFR has been in the range of 20-25 since last hospitalization at [place]. 3. Acute on chronic systolic CHF ejection fraction of 45-50% with mild to moderate mitral and tricuspid regurgitation. 4. Pleural effusions noted on chest x-ray. Currently on room air. 5. A. fib with slow ventricular response being followed by cardiology. May need pacemaker. 6. Mild hyperkalemia associated with underlying CK D. Maintain patient on low potassium diet and rule out urine retention. 7. Anemia status post IV iron yesterday. I do not see an iron profile however ferritin was elevated at 1004 but this appears to have been drawn after the IV iron or during it. It is therefore inaccurate. Patient will be started on Aranesp and we will repeat iron profile as outpatient. No active bleeding noted. Plan: Follow-up as outpatient for CK D in 2-3 days Check bladder scan Add Aranesp Repeat iron profile as outpatient with labs prior to next visit in about 1 week's time. Low potassium diet.
[2022-09-02 12:31] VITALS: BMI 27.3
--- NOTE | 2022-09-02 12:54 | P.PN ---
Subjective Progress Note Date: 09/02/22 HISTORY OF PRESENT ILLNESS: 08/31/22 This is a pleasant 87 year old gentleman with a history of hypertension, hyperlipidemia, chronic kidney disease who presented with symptoms of fatigue and worsening renal function. He was in atrial fibrillation with slow ventricular response. Denies any chest discomfort, dizziness or palpitations. Heart rate has improved but remains on the low side with no significant pauses since 08/29/2022. Echocardiogram with Doppler study showed ejection fraction of 45-50% with mild to moderate mitral and tricuspid regurgitation. He is overall feeling well and has no complaints at this time. 09/01/2022 Patient examined this afternoon at the bedside. Patients family present. Patient denies chest pain or pressure. Denies shortness of breath. Patient is not on telemetry. However, heart rates are documented in the 60s per nursing. He remains on oral lasix 40mg daily. Creatinine today 3.1. 09/02/2022 Patient examined this morning at the bedside. Patient denies chest pain or pressure. He denies SOB. He is currently receiving Bumex 1 mg twice a day. Patients creatinine stable at 3.2. Patient was placed on telemetry yesterday. He states that he got up and ambulated in the hallway. According to review of telemetry, patients heart rate did not seem to increase with ambulation. PHYSICAL EXAM: VITAL SIGNS: Reviewed. GENERAL: Well-developed in no acute distress. NECK: Supple. + JVD. No thyromegaly LUNGS: Respirations even and unlabored. Lungs diminished. HEART: Irregular rate and rhythm. S1 and S2 heard. EXTREMITIES: Normal range of motion. No clubbing or cyanosis. Peripheral pulses intact. 1+ bilateral lower extremity edema ASSESSMENT: Acute on chronic kidney injury Congestive heart failure with preserved systolic function Persistent atrial fibrillation with slow ventricular response Hyperlipidemia Suspected chronotropic incompetence PLAN: Continue current cardiac medications Decrease Bumex to 1 mg daily. Monitor kidney function Patient with suspected chronotropic incompetence. Further consideration of PPM to be determined at his follow up visit with Dr. Rhodes Patient is stable for discharge home today from a cardiac standpoint Nurse practitioner note has been reviewed by physician. Signing provider agrees with the documented findings, assessment, and plan of care. Dr. Khoury's Addendum We will change his diuretic from Lasix to Bumex for more predictable diuretic effect considering his CKD and low GFR. He diuresed well on by mouth Bumex yesterday and his creatinine has stayed stable. He has been cleared for discharge from nephrology standpoint. Patient was also monitored on telemetry for 24 hours. Even with movements like getting up from bed going to bathroom and walking down the hallways his heart rate has not increased beyond 60 bpm. This tells me that patient does have competent of chronotropic incompetence. However he's denied any symptoms of lightheadedness, dizziness or passing out. This needs to be followed up as an outpatient. If patient continues to have bothersome fatigue and dyspnea, his chronotropic incompetence should be worked up with a treadmill stress test. I have personally seen and examined the patient. I have personally performed all the components of medical care documented above including formulating the assessment and plan. I have personally reviewed the relavant labs, imaging and other diagnostics. I have discussed this in detail with my WEED THINNER who has helped me with this documentation. I have carefully reviewed this document before finalizing. Total time spent reviewing medical chart, examining patient, couns elling patient and documentation 30 mins Thank you for letting cardiology team participating in this patient's care. Dr. Jn Khoury MD Cardiovascular Disease Objective - Vital Signs Vital signs: Vital Signs Temp 98.6 F 09/02/22 07:19 Pulse 61 09/02/22 08:00 Resp 16 09/02/22 08:00 BP 128/56 09/02/22 07:19 Pulse Ox 93 L 09/02/22 07:19 FiO2 21 09/01/22 12:42 Intake & Output 09/01/22 09/02/22 09/02/22 18:59 06:59 18:59 Intake Total 340 Output Total 125 220 Balance -125 120 Weight 84 kg Intake: Intake, IV Titration 100 Amount Sodium Ferric Gluconat- 100 Sucrose 125 mg In Sodium Chloride 0.9% 100 ml @ 100 mls/hr IVPB ONCE ONE Rx#:[id number] Oral 240 Output: Urine 125 220 Other: Voiding Method Incontinent Incontinent Incontinent External Catheter External Catheter External Catheter # Voids 1 # Bowel Movements 1 - Labs CBC & Chem 7: 09/02/22 06:09 09/02/22 06:09 Labs: Abnormal Lab Results - Last 24 Hours (Table) 09/02/22 09/02/22 09/02/22 Range/Units 00:01 06:09 06:09 RBC 2.82 L (4.40-5.60) X 10*6/uL Hgb 8.5 L (12.0-15.0) d/dL Hct 27.2 L (39.6-50.0) % MCHC 31.3 L (32.0-37.0) d/dL Eosinophils # 0.63 H (0.04-0.35) X 10*3/uL Sodium 129 L 134 L (137-145) mmol/L Chloride 92 L 93 L (98-107) mmol/L Anion Gap 12.50 H (4.00-12.00) mmol/L BUN 85 H 76.3 H (9-20) mg/dL Creatinine 3.17 H 3.2 H (0.66-1.25) mg/dL Est GFR (CKD-EPI) 18 L (>=60) BUN/Creatinine Ratio 23.84 H (12.00-20.00) Ratio Ferritin 1004.0 H (22.0-322.0) ng/mL
[2022-09-02 13:44] VITALS: BP 100/48; PULSE 58; TEMP 97.4
[2022-09-03] MEDS ORDERED: BUMETANIDE 1 MG TAB PO SCH (09:00)
--- NOTE | 2022-09-05 10:16 | P.DS ---
Providers Date of admission: 08/28/22 21:15 Expected date of discharge: 09/02/22 Attending physician: Marlys Lynn Consults: 08/28/22 21:15 Consult Physician Urgent Consulting Provider: Erick Armas Consult Reason/Comments: GFR 21-25% > 16% Do you want consulting provider notified?: Yes 08/28/22 21:44 Consult Physician Urgent Consulting Provider: [facility] Consult Reason/Comments: CHF Do you want consulting provider notified?: Yes Primary care physician: Doris Ashraf DO Hospital Course: Final diagnosis Acute on chronic kidney disease History of chronic kidney disease stage IIIa Acute on chronic congestive heart failure, systolic dysfunction with an EF of 45-50% History of asthma, COPD, not an exacerbation Hyperlipidemia history GI prophylaxis DVT prophylaxis Full code Discharge disposition Patient is being discharged in a stable condition with guarded prognosis to home. Patient will follow-up with Dr. Ashraf in the outpatient setting upon discharge. Patient is to follow-up with nephrology and cardiology this week as scheduled. Recommend repeat labs in 2-3 days. Total time taken is greater than 35 minutes. Hospital course This is a 87-year-old male who was recently admitted with heart failure exacerbation along with acute on chronic kidney disease with worsening kidney functions. Patient being followed by nephrology along with cardiology as patient had low heart rates and concerns for possibly needing a pacemaker. Patient has been cleared by cardiology and nephrology for close outpatient follow-up. Patient with generalized weakness although preferring to go home and extremely anxious to go home. Please refer to other consultation notes for further HPI. Currently no reports of chest pain, shortness of breath, or palpitations. Patient is afebrile. No reports of nausea or vomiting and patient is tolerating diet. Patient will be discharged home today. Guarded prognosis. Physical exam: Gen: This is a 87-year-old male who is awake, alert and oriented 2-3, thin built, elderly appearing HEENT: Head is atraumatic, normocephalic. Pupils equal, round. Sclerae is anicteric. NECK: Supple. No JVD. No lymphadenopathy. No thyromegaly. LUNGS: Diminished breath sounds bilaterally with some scattered rhonchi. No intercostal retractions. HEART: Regular rate and rhythm. No murmur. ABDOMEN: Soft. Bowel sounds are present. No masses. No tenderness. EXTREMITIES: No pedal edema. No calf tenderness. NEUROLOGICAL: Patient is awake, alert and oriented x3. Cranial nerves 2 through 12 are grossly intact. Please refer to medication reconciliation sheet for a list of medications. The impression and plan of care has been dictated by Tania Reynoso, Nurse Practitioner as directed. MD Viral I have performed a history and examination and MDM of this patient, discussed the same with the dictator, and agree with the dictator's assessment and plan as written ,documented as a scribe. Based on total visit time, I have performed more than 50% of the visit. Patient Condition at Discharge: Stable Plan - Discharge Summary Discharge Rx Participant: Yes New Discharge Prescriptions: New Bumetanide [BUMEX] 1 mg PO DAILY #30 tab Simethicone Chew [Mylicon Chew] 80 mg PO QID PRN tab PRN Reason: Dyspepsia Darbepoetin Jamar [Aranesp] 60 mcg SQ Q7D each Acetaminophen Tab [Tylenol] 650 mg PO Q6HR PRN tab PRN Reason: Mild Pain Or Fever > 100.5 Continue Montelukast [Singulair] 10 mg PO DAILY Tamsulosin HCl [Flomax] 0.4 mg PO DAILY Cyanocobalamin (Vitamin B-12) [Vitamin B-12] 1,000 mcg PO DAILY Apixaban [Eliquis] 2.5 mg PO BID Cholecalciferol [Vitamin D3 (25 Mcg = 1000 Iu)] 25 mcg PO DAILY Lovastatin [Mevacor] 20 mg PO HS Folic Acid 1 mg PO DAILY Discontinued Furosemide [Lasix] 80 mg PO DAILY allopurinoL 200 mg PO DAILY Discharge Medication List Montelukast [Singulair] 10 mg PO DAILY 07/30/15 [History] Tamsulosin HCl [Flomax] 0.4 mg PO DAILY 07/21/17 [History] Apixaban [Eliquis] 2.5 mg PO BID 08/28/22 [History] Cholecalciferol [Vitamin D3 (25 Mcg = 1000 Iu)] 25 mcg PO DAILY 08/28/22 [History] Cyanocobalamin (Vitamin B-12) [Vitamin B-12] 1,000 mcg PO DAILY 08/28/22 [History] Folic Acid 1 mg PO DAILY 08/28/22 [History] Lovastatin [Mevacor] 20 mg PO HS 08/28/22 [History] Acetaminophen Tab [Tylenol] 650 mg PO Q6HR PRN tab 09/02/22 [Rx] Bumetanide [BUMEX] 1 mg PO DAILY #30 tab 09/02/22 [Rx] Darbepoetin Jamar [Aranesp] 60 mcg SQ Q7D each 09/02/22 [Rx] Simethicone Chew [Mylicon Chew] 80 mg PO QID PRN tab 09/02/22 [Rx] Follow up Appointment(s)/Referral(s): [facility] [NON-STAFF] - 1 Week ([facility] will call you to schedule your in home visits. ) Uriel Rhodes MD [STAFF PHYSICIAN] - 1 Week (Office closed at time of discharge. Please call for follow-up appointment.) Doris Ashraf DO [Primary Care Provider] - 1-2 days (Office is closed at time of discharge. Please call for follow-up appointment.) Ambulatory/Diagnostic Orders: Complete Blood Count w/diff [LAB.AMB] Time Frame: 3 Days, Location: None Selected Activity/Diet/Wound Care/Special Instructions: Activity Limited until follow-up Follow-up with primary care provider on discharge Follow-up with nephrology in one week Follow-up cardiology outpatient Repeat labs of CBC, BMP in 2-3 days Continue taking medications as prescribed Discharge Disposition: HOME WITH HOME HEALTH SERVICES
== END 2022-09-02 16:46 | disposition home health service (06) | DRG 682 ==
LOC: EC 18:44 → 5NMEDONC 21:15 → 3SCARD 08-29 15:11 → 4SSUR 08-31 17:39
PROVIDERS: ADMIT Internal Medicine; ATTEND Internal Medicine
DX: N17.0 Acute kidney failure with tubular necrosis (principal); I50.23 Acute on chronic systolic (congestive) heart failure; I13.0 Hypertensive heart and chronic kidney disease with heart failure and stage 1 through stage 4 chronic kidney disease, or unspecified chronic kidney disease; I48.19 Other persistent atrial fibrillation; N18.31 Chronic kidney disease, stage 3a; N40.0 Benign prostatic hyperplasia without lower urinary tract symptoms; D64.9 Anemia, unspecified; E78.5 Hyperlipidemia, unspecified; E87.5 Hyperkalemia; R00.1 Bradycardia, unspecified; M10.9 Gout, unspecified; I08.1 Rheumatic disorders of both mitral and tricuspid valves; R32 Unspecified urinary incontinence; Z79.01 Long term (current) use of anticoagulants; Z82.49 Family history of ischemic heart disease and other diseases of the circulatory system; Z79.899 Other long term (current) drug therapy; T50.2X5A Adverse effect of carbonic-anhydrase inhibitors, benzothiadiazides and other diuretics, initial encounter; Z96.1 Presence of intraocular lens; G62.9 Polyneuropathy, unspecified; Z87.19 Personal history of other diseases of the digestive system; Z98.42 Cataract extraction status, left eye; Z98.41 Cataract extraction status, right eye; Z88.8 Allergy status to other drugs, medicaments and biological substances; X58.XXXA Exposure to other specified factors, initial encounter
CPT/HCPCS: 36415; 71046; 76770; 80048; 80053; 81003; 82728; 83735; 83880; 84443; 84484; 85025; 85610; 85730; 93005; 93306; 94760; 99285

== ENCOUNTER 2022-09-13 11:46 | Inpatient (IN) | payer MEDICARE, BC ==
[2022-09-13] MEDS ORDERED: Acetaminophen-Codeine 300-30mg TAB PO STA (12:11)
--- NOTE | 2022-09-13 12:12 | ED ---
Recheck HPI - General Chief Complaint: Recheck/Abnormal Lab/Rx Stated Complaint: Poss Kidney Failure Time Seen by Provider: 09/13/22 11:51 Source: patient, RN notes reviewed - History of Present Illness Initial Comments: patient is a 7-year-old male presents to the emergency room via EMS as a transfer from [facility] where he was seen for abnormal labs at his extended care facility where he is undergoing rehab status post He has a history of chronic kidney disease and routine lab work found him to be in acute renal failure with hyperkalemia he was treated with dextrose insulin a nd bicarbonate at the facility and spoke with local nephrology he follows with Dr. Rodriguez and Dr. Rodriguez recommended transfer to our facility for admission and monitoring for acute renal failure. Overall he is feeling well. He reports that he is still making urine however he is incontinent of urine. He denies any chest pain or shortness of breath. He reports that his lower extremity swelling is at baseline. Unfortunately he did fall and break his 3rd metacarsal of right foot while doing rehabilitation for his cervical spine surgery resulting in him being weightbearing as tolerated with a surgical shoe intact. In addition to his chronic kidney disease stage IV he has a past medical history for congestive heart failure and is typically on Bumex however his diuretics get held often due to varying renal function. He has chronic neuropathy, hypertension, hyperlipidemia, BPH, asthma - Related Data Home Medications Medication Instructions Recorded Confirmed Montelukast [Singulair] 10 mg PO DAILY 07/30/15 09/13/22 Tamsulosin HCl [Flomax] 0.4 mg PO DAILY 07/21/17 09/13/22 Apixaban [Eliquis] 2.5 mg PO BID 08/28/22 09/13/22 Lovastatin [Mevacor] 20 mg PO HS 08/28/22 09/13/22 Acetaminophen-Codeine 300-30mg 1 tab PO Q12H PRN 09/13/22 09/13/22 [Tylenol w/codeine #3] Budesonide 0.5 mg INHALATION RT-BID 09/13/22 09/13/22 Ipratropium-Albuterol Nebulize 3 ml INHALATION RT-Q4H PRN 09/13/22 09/13/22 [Duoneb 0.5 mg-3 mg/3 ml Soln] Melatonin 5 mg PO HS PRN 09/13/22 09/13/22 Previous Rx's Medication Instructions Recorded Acetaminophen Tab [Tylenol] 650 mg PO Q6HR PRN tab 09/02/22 Bumetanide [BUMEX] 1 mg PO DAILY #30 tab 09/02/22 Allergies Allergy/AdvReac Type Severity Reaction Status Date / Time prednisone Allergy Hallucinati Verified 09/13/22 16:40 ons Review of Systems ROS Statement: Those systems with pertinent positive or pertinent negative responses have been documented in the HPI. ROS Other: All systems not noted in ROS Statement are negative. Past Medical History Past Medical History: Asthma, Heart Failure, COPD, GERD/Reflux, Hyperlipidemia, Prostate Disorder Additional Past Medical History / Comment(s): HYPOTENSION, PAST ANEMIA USED TO TAKE IRON SUPPLEMENTS, SEASONAL ALLERGIES, ENLARGED PROSTATE. GOUT. NEUROPATHY History of Any Multi-Drug Resistant Organisms: None Reported Past Surgical History: Hernia Repair, Orthopedic Surgery Additional Past Surgical History / Comment(s): FOOT SURG(.scraped bones- ancelmo 5th toes), cataracts- lens implants, [facility] HERNIA REPAIR W/MESH Past Anesthesia/Blood Transfusion Reactions: No Reported Reaction Past Psychological History: No Psychological Hx Reported Smoking Status: Never smoker Past Alcohol Use History: Occasional Additional Past Alcohol Use History / Comment(s): 3-5 mixed rinks(vodka) per day. 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 Absent: scleral icterus, conjunctival injection, periorbital swelling ENT exam: Present: normal exam, mucous membranes moist Neck exam: Present: other (c-collar intact utilized for transfer.). Absent: tenderness Respiratory exam: Present: normal lung sounds bilaterally, decreased breath sounds. Absent: respiratory distress, wheezes, rales, rhonchi, stridor Cardiovascular Exam: Present: regular rate, normal rhythm, normal heart sounds, systolic murmur. Absent: diastolic murmur, rubs, gallop, clicks GI/Abdominal exam: Present: soft, normal bowel sounds. Absent: distended, tenderness, guarding, rebound, rigid Extremities exam: Present: pedal edema (+1 chronic), other (right walking boot intact) Right Gait: not tested/not observed Neurological exam: Present: alert, oriented X3, CN II-XII intact Psychiatric exam: Present: normal affect, normal mood Skin exam: Present: warm, dry, intact, normal color. Absent: rash Course Vital Signs 09/13/22 09/13/22 09/13/22 12:08 15:34 15:51 Temperature 98.2 F Pulse Rate 64 76 86 Respiratory 18 Rate Blood Pressure 120/54 O2 Sat by Pulse 94 L Oximetry 09/13/22 16:21 Temperature Pulse Rate 96 Respiratory 18 Rate Blood Pressure 120/54 O2 Sat by Pulse 94 L Oximetry Medical Decision Making - Medical Decision Making Was pt. sent in by a medical professional or institution (, PA, BLENDING LINE ATTENDANT, urgent care, hospital, or longterm...) When possible be specific @ -Yes, patient sent to the hospital from [facility] after recommendation by patient's hplc chemist for further treatment of hyperkalemia and acute renal failure on see Sharona. Did you speak to anyone other than the patient for history (EMS, parent, family, police, friend...)? What history was obtained from this source @ -No Did you review nursing and triage notes (agree or disagree)? Why? @ -I reviewed and agree with nursing and triage notes Were old charts reviewed (outside hosp., previous admission, EMS record, old EKG, old radiological studies, urgent care reports/EKG's, longterm records)? Report findings @ -Yes, last laboratory studies on chart and previous H&P along with last nephrology consult reviewed. Differential Diagnosis (chest pain, altered mental status, abdominal pain women, abdominal pain men, vaginal bleeding, weakness, fever, dyspnea, syncope, headache, dizziness, GI bleed, back pain, seizure, CVA, palpatations, mental health, musculoskeletal)? @ -not applicable EKG interpreted by me (3pts min.). @ -Sinus rhythm with first-degree AV block and left bundle branch block, peaking of T waves noted. Ventricular rate 70 bpm, HI interval 290 ms, QRS duration 153 ms, QT/QTC 425/446 methadone PRT axes 76, 22, 60 X-rays interpreted by me (1pt min.). @ -None done CT interpreted by me (1pt min.). @ -None done U/S interpreted by me (1pt. min.). @ -None done What testing was considered but not performed or refused? (CT, X-rays, U/S, labs)? Why? @ -None What meds were considered but not given or refused? Why? @ -None Did you discuss the management of the patient with other professionals (professionals i.e. DrSoren, PA, BLENDING LINE ATTENDANT, lab, RT, psych nurse, healthcare social worker, grass cutter, teacher, chief talent officer, adult protective caseworker)? Give summary @ -Yes, spoke with Dr. Mcdowell for sound physicians regarding patient presentati on from outside facility for admission to nephrology for evaluation treatment of acute on chronic renal failure. Also spoke with nephrology regarding patient's. After evaluation by Dr. Rodriguez for further treatment of acute on chronic renal failure and hyperkalemia. Orders regarding treatment for potassium and hydration see by nephrology. Dr. Mcdowell is accepting of admission. Was smoking cessation discussed for >3mins.? @ -No Was critical care preformed (if so, how long)? @ -No Were there social determinants of health that impacted care today? How? (Homelessness, low income, unemployed, alcoholism, drug addiction, transportation, low edu. Level, literacy, decrease access to med. care, prison, rehab)? @ -No Was there de-escalation of care discussed even if they declined (Discuss DNR or withdrawal of care, Hospice)? DNR status @ -No What co-morbidities impacted this encounter? (DM, HTN, Smoking, COPD, CAD, Cancer, CVA, ARF, Chemo, Hep., AIDS, mental health diagnosis, sleep apnea, morbid obesity)? @ -Underlying chronic kidney disease and congestive heart failure. Was patient admitted / discharged? Hospital course, mention meds given and route, prescriptions, significant lab abnormalities, going to OR and other pertinent info. @ -87-year-old male presenting to the emergency room via transfer by EMS for admission to the hospital for treatment by nephrology for acute on chronic renal failure and hyperkalemia. Previously treated for hyperkalemia with insulin, dextrose and bicarbonate at previous facility. Diuretics were held. Will repeat laboratory studies of CBC, CMP will also obtain magnesium and phosphorus levels in the setting of a Chiari and see Sharona. Will hold medications at this time. Due to urinary incontinence and concern for decreased urine output without any evidence of an urinary Output Will place Riley catheter for strict I's and O's. Laboratory studies reveal chronic anemia with a stable hemoglobin of 9.0 cytosis coags are normal. Potassium elevated at 6.5 improved from last check. Glucose low at 63 with repeat point of care glucose stable at 85 magnesium elevated 2.5 BUN continues to be elevated at 89 with improvement in creatinine to 3.57. Urinalysis negative. Phosphorus level pending. Liver enzymes stable, alkaline phosphate elevated at 132. EKG obtained due to potassium levels with peak T waves noted however underlying rhythm of sinus rhythm with first-degree block and left bundle branch block are at baseline. Patient appears euvolemic with trace lower extremity swelling without any bibasilar crackles or evidence of volume overload at this time. Given elevated BUN and improving creatinine will avoid diuretics and give IV hydration along with continuous albuterol and lochia. Spoke with Dr. Mcdowell on for [place] [facility] physicians called regarding patient presentation from [facility] with recommendation of admission with nephrology consult by nephrology. He is accepting of admission and advised to contact neph rology regarding further input regarding renal status and potassium level. Spoke with Dr. Hawley with nephrology who advised lochia 3 times a day and continued IV hydration rate with repeat labs later this evening. No further orders at this time. Will place admission orders in serious condition to medical surgical unit under [facility] [facility] physicians with consult nephrology for treatment of acute on chronic renal failure with hyperkalemia. Undiagnosed new problem with uncertain prognosis? @ -No Drug Therapy requiring intensive monitoring for toxicity (Heparin, Nitro, Insulin, Cardizem)? @ -No Were any procedures done? @ -No Diagnosis/symptom? @ -Acute on chronic renal failure Acute, or Chronic, or Acute on Chronic? @ -Acute on chronic Uncomplicated (without systemic symptoms) or Complicated (systemic symptoms)? @ -Complicated Side effects of treatment? @ -No Exacerbation, Progression, or Severe Exacerbation? @ -No Poses a threat to life or bodily function? How? (Chest pain, [place], [place], pneumonia, PE, COPD, DKA, ARF, appy, cholecystitis, CVA, Diverticulitis, Homicidal, Suici charles, threat to staff... and all critical care pts) @ -Yes, high risk for abnormalities and uremia Diagnosis/symptom? @ -Hyperkalemia Acute, or Chronic, or Acute on Chronic? @ -Acute Uncomplicated (without systemic symptoms) or Complicated (systemic symptoms)? @ -Complicated Side effects of treatment? @ -none Exacerbation, Progression, or Severe Exacerbation] @ -no Poses a threat to life or bodily function? @ -Yes, at risk for continued potassium elevation chronic arrhythmias and cardiac arrest. Cased with Dr. Carey - Lab Data Result diagrams: 09/13/22 12:18 09/13/22 12:18 Disposition Clinical Impression: OMA (acute kidney injury), Hyperkalemia Disposition: ADMITTED IP TO THIS [facility] Condition: Serious Time of Disposition: 15:27
[2022-09-13 12:41] LABS: Basophils % (A) 1 %; Eosinophils # (A) 0.5 k/uL (0-0.7); Eosinophils % (A) 6 %; HCT 26.9 % (39.0-53.0); Lymphocytes % (A) 28 %; MCHC 33.3 g/dL (31.0-37.0); MCV 96.2 fL (80.0-100.0); Mean Platelet Volume 8.2; Monocytes # (A) 0.6 k/uL (0-1.0); Monocytes % (A) 8 %; Neutrophils # (A) 3.9 k/uL (1.3-7.7); Neutrophils % (A) 53 %; Platelet Count 220 k/uL (150-450); RDW 15.3 % (11.5-15.5); WBC 7.4 k/uL (3.8-10.6)
[2022-09-13 12:53] LABS: INR 1.1 (<1.2); Prothrombin Time 11.3 sec (9.0-12.0)
[2022-09-13 12:54] LABS: Glucose,Whole Blood 85 mg/dL (70-110)
[2022-09-13 13:04] LABS: ALT 25 U/L (4-49); AST 34 U/L (17-59); African American GFR (CKD) 17 (>60 ml/min/1.73 sqM); Albumin 3.3 g/dL (3.5-5.0); Alkaline Phosphatase 132 U/L (38-126); Anion Gap 10 mmol/L; Blood Urea Nitrogen 89 mg/dL (9-20); Calcium 9.2 mg/dL (8.4-10.2); Carbon Dioxide 24 mmol/L (22-30); Chloride 98 mmol/L (98-107); Glucose 63 mg/dL (74-99); Magnesium 2.5 mg/dL (1.6-2.3); Non-African American GFR(CKD) 15 (>60 ml/min/1.73 sqM); Sodium 132 mmol/L (137-145); Total Bilirubin 0.5 mg/dL (0.2-1.3); Total Protein 6.9 g/dL (6.3-8.2)
[2022-09-13 13:27] LABS: Potassium 6.5 mmol/L (3.5-5.1)
[2022-09-13 14:50] LABS: Appearance,Urine Clear (Clear); Color,Urine Yellow; Protein,Urine Negative (Negative); Specific Gravity,Urine 1.015 (1.001-1.035)
[2022-09-13] MEDS ORDERED: SODIUM ZIRCONIUM CYCLOSILICATE 10 GM PACKET PO ONE (14:50)
[2022-09-13 14:51] LABS: Bilirubin,Urine Negative (Negative); Blood,Urine Negative (Negative); Glucose,Urine (UA) Negative (Negative); Ketones,Urine Negative (Negative); Leukocyte Esterase,Urine Negative (Negative); Nitrite,Urine Negative (Negative); Urobilinogen,Urine <2.0 mg/dL (<2.0)
[2022-09-13] MEDS ORDERED: ALBUTEROL NEBULIZED (CONC) 20 MG, SODIUM CHLORIDE 0.9% NEBULIZ 3 ML INHALATION ONE ×2 (15:08)
[2022-09-13] MEDS ORDERED: NALOXONE 0.4 MG/ML 1 ML VIAL IV PRN (15:24)
[2022-09-13] MEDS ORDERED: ALBUTEROL NEB (CONC) 2.5 MG/0.5 ML INHALATION STA (15:26)
[2022-09-13] MEDS ORDERED: SODIUM CHLORIDE 0.9% 1,000 ML IV STA (15:49)
[2022-09-13] MEDS ORDERED: ACETAMINOPHEN TAB 325 MG TAB PO PRN (17:17)
--- NOTE | 2022-09-13 17:20 | P.HPIM ---
History of Present Illness H&P Date: 09/13/22 Patient is a 87-year-old male with history of chronic kidney disease, COPD/asthma, systolic CHF with EF 45%, dyslipidemia presenting from nursing facility for abnormal labs. He has been having difficulty eating or drinking, as nausea, lack of appetite, generalized weakness. Was found to have hyperkalemia and worsening renal function, and was sent to our facility. Patient was also given insulin, dextrose, Kayexalate at the other facility. In the ED, temperature was 98.2, pulse 64, respiratory rate 18, blood pressure 120/54, saturating at 94% on room air. WBC 7.4, hemoglobin 9, at baseline, sodium 132, potassium 6.5, creatinine 3.57, slightly up from baseline, glucose 63, magnesium 2.5, negative urine. Patient given normal saline at 50 mL an hour, and also lokelma. Patient admitted for acute kidney injury on chronic kidney disease, and hyperkalemia Pertinent positives and negatives as discussed in HPI, a complete review of systems was performed and all other systems are negative. Patient seen and examined at bedside. Vital signs reviewed General: nontoxic, no distress, appears at stated age Derm: warm, dry Head: atraumatic, normocephalic, symmetric Eyes: EOMI, no lid lag, anicteric sclera, pupils equal round reactive to light ENT: Nose and ears atraumatic Neck: No thyromegaly, supple Mouth: no lip lesion, mucus membranes moist Cardiovascular: S1S2 reg, no murmur, no edema Lungs: clear to auscultation bilateral, no rhonchi, no rales, no wheeze, no a ccessory muscle use Abdominal: soft, nontender to palpation, no guarding, no appreciable organomega ly Ext: no gross muscle atrophy, muscle strength muscle strength 5 out of 5 in all 4 extremities, no contractures, right lower extremity in a boot Neuro: CN II-XII grossly intact Psych: Alert, oriented, appropriate affect Assessment/Plan: Active: Acute kidney injury on chronic kidney disease stage III Hyperkalemia Anorexia recent right 3rd toe fracture -Nephrology consulted -On IV fluids -Hold diuretics -Given albuterol in the ED, also on lokelma 10 TID -Generalized weakness, anorexia likely in the setting of uremia -repeat BMP tomorrow -has a boot for recent fracture, seen by ortho outpatient Chronic: COPD/asthma Systolic CHF Dyslipidemia Atrial fibrillation on Eliquis The patient is admitted with an anticipated greater than 2 midnight stay as inpatient status for evaluation of acute kidney injury and hyperkalemia. Surrogate decision-maker: Spouse CODE STATUS: Full code DVT prophylaxis: Eliquis Anticipated discharge date: Pending clinical course Anticipated discharge place: Pending clinical course A total of 55 minutes was spent on the care of this complex patient more than 50% of the time was spent in counseling and care coordination. Past Medical History Past Medical History: Asthma, Heart Failure, COPD, GERD/Reflux, Hyperlipidemia, Prostate Disorder Additional Past Medical History / Comment(s): HYPOTENSION, PAST ANEMIA USED TO TAKE IRON SUPPLEMENTS, SEASONAL ALLERGIES, ENLARGED PROSTATE. GOUT. NEUROPATHY History of Any Multi-Drug Resistant Organisms: None Reported Past Surgical History: Hernia Repair, Orthopedic Surgery Additional Past Surgical History / Comment(s): FOOT SURG(.scraped bones- ancelmo 5th toes), cataracts- lens implants, [facility] HERNIA REPAIR W/MESH Past Anesthesia/Blood Transfusion Reactions: No Reported Reaction Past Psychological History: No Psychological Hx Reported Smoking Status: Never smoker Past Alcohol Use History: Occasional Additional Past Alcohol Use History / Comment(s): 3-5 mixed rinks(vodka) per day. 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 [place] Medications and Allergies Home Medications Medication Instructions Recorded Confirmed Type Montelukast [Singulair] 10 mg PO DAILY 07/30/15 09/13/22 History Tamsulosin HCl [Flomax] 0.4 mg PO DAILY 07/21/17 09/13/22 History Apixaban [Eliquis] 2.5 mg PO BID 08/28/22 09/13/22 History Lovastatin [Mevacor] 20 mg PO HS 08/28/22 09/13/22 History Acetaminophen Tab [Tylenol] 650 mg PO Q6HR PRN tab 09/02/22 09/13/22 Rx Bumetanide [BUMEX] 1 mg PO DAILY #30 tab 09/02/22 09/13/22 Rx Acetaminophen-Codeine 300-30mg 1 tab PO Q12H PRN 09/13/22 09/13/22 History [Tylenol w/codeine #3] Budesonide 0.5 mg INHALATION RT-BID 09/13/22 09/13/22 History Ipratropium-Albuterol Nebulize 3 ml INHALATION RT-Q4H PRN 09/13/22 09/13/22 History [Duoneb 0.5 mg-3 mg/3 ml Soln] Melatonin 5 mg PO HS PRN 09/13/22 09/13/22 History Allergies Allergy/AdvReac Type Severity Reaction Status Date / Time prednisone Allergy Hallucinati Verified 09/13/22 16:40 ons Physical Exam Vitals: Vital Signs Temp Pulse Resp BP Pulse Ox 09/13/22 17:16 82 18 119/51 96 09/13/22 16:21 96 18 120/54 94 L 09/13/22 15:51 86 09/13/22 15:34 76 09/13/22 12:08 98.2 F 64 18 120/54 94 L Intake and Output 09/13/22 09/13/22 09/13/22 06:59 14:59 22:59 Output Total 350 Balance -350 Output: Urine 350 Other: Weight 83.461 kg Results CBC & Chem 7: 09/13/22 12:18 09/13/22 12:18 Labs: Abnormal Lab Results - Last 24 Hours (Table) 09/13/22 09/13/22 Range/Units 12:18 12:18 RBC 2.80 L (4.30-5.90) m/uL Hgb 9.0 L (13.0-17.5) gm/dL Hct 26.9 L (39.0-53.0) % Sodium 132 L (137-145) mmol/L Potassium 6.5 H* (3.5-5.1) mmol/L BUN 89 H (9-20) mg/dL Creatinine 3.57 H (0.66-1.25) mg/dL Glucose 63 L (74-99) mg/dL Magnesium 2.5 H (1.6-2.3) mg/dL Alkaline Phosphatase 132 H (38-126) U/L Albumin 3.3 L (3.5-5.0) g/dL
[2022-09-13] MEDS: BUDESONIDE 0.5 MG/2 ML NEBU INHALATION SCH (19:11)
[2022-09-13] MEDS: IPRATROPIUM-ALBUTEROL 3 ML NEB INHALATION PRN (19:11)
[2022-09-13] MEDS: SODIUM ZIRCONIUM CYCLOSILICATE 10 GM PACKET PO SCH (21:48)
[2022-09-13] MEDS: ATORVASTATIN 10 MG TAB PO SCH (21:48)
[2022-09-13] MEDS: APIXABAN 2.5 MG TABLET PO SCH (21:48)
[2022-09-14] MEDS: Acetaminophen-Codeine 300-30mg TAB PO PRN ×2 (00:17→22:56)
[2022-09-14] MEDS: MELATONIN 5 MG TABLET PO PRN ×2 (00:17→23:00)
[2022-09-14] MEDS ORDERED: ONDANSETRON 4 MG/2 ML VIAL IVP STA (03:00)
[2022-09-14 05:22] LABS: Basophils % (A) 0 %; Eosinophils # (A) 0.4 k/uL (0-0.7); Eosinophils % (A) 4 %; HCT 25.5 % (39.0-53.0); HGB 8.6 gm/dL (13.0-17.5); Hypochromasia Slight; Lymphocytes # (A) 2.1 k/uL (1.0-4.8); Lymphocytes % (A) 24 %; MCH 32.4 pg (25.0-35.0); MCHC 33.6 g/dL (31.0-37.0); MCV 96.6 fL (80.0-100.0); Monocytes # (A) 0.7 k/uL (0-1.0); Monocytes % (A) 8 %; Neutrophils % (A) 59 %; Platelet Count 203 k/uL (150-450); RBC 2.64 m/uL (4.30-5.90); RDW 15.3 % (11.5-15.5); WBC 8.4 k/uL (3.8-10.6)
[2022-09-14 05:27] LABS: African American GFR (CKD) 17 (>60 ml/min/1.73 sqM); Anion Gap 9 mmol/L; Blood Urea Nitrogen 84 mg/dL (9-20); Calcium 8.8 mg/dL (8.4-10.2); Carbon Dioxide 25 mmol/L (22-30); Chloride 98 mmol/L (98-107); Glucose 81 mg/dL (74-99); Non-African American GFR(CKD) 14 (>60 ml/min/1.73 sqM); Sodium 132 mmol/L (137-145)
[2022-09-14] MEDS: MONTELUKAST 10 MG TAB PO SCH (08:13)
[2022-09-14] MEDS: SODIUM ZIRCONIUM CYCLOSILICATE 10 GM PACKET PO SCH ×3 (08:13→22:50)
[2022-09-14] MEDS: APIXABAN 2.5 MG TABLET PO SCH ×2 (08:13→22:04)
[2022-09-14] MEDS: TAMSULOSIN 0.4 MG CAP.ER.24H PO SCH (08:13)
[2022-09-14] MEDS: IPRATROPIUM-ALBUTEROL 3 ML NEB INHALATION PRN ×2 (08:26→20:53)
[2022-09-14] MEDS: BUDESONIDE 0.5 MG/2 ML NEBU INHALATION SCH ×2 (08:26→20:53)
--- NOTE | 2022-09-14 12:45 | P.PN ---
Subjective Progress Note Date: 09/14/22 Hospital Course: 87-year-old male with history of chronic kidney disease, COPD/asthma, systolic CHF with EF 45%, dyslipidemia presenting from nursing facility for abnormal labs. In the ED, temperature was 98.2, pulse 64, respiratory rate 18, blood pressure 120/54, saturating at 94% on room air. WBC 7.4, hemoglobin 9, at baseline, sodium 132, potassium 6.5, creatinine 3.57, slightly up from baseline, glucose 63, magnesium 2.5, negative urine. Patient given normal saline at 50 mL an hour, and also lokelma. Patient admitted for acute kidney injury on chronic kidney disease, and hyperkalemia. Renal function improving, potassium down trending. Nephrology has been consulted. Subjective: Patient seen and examined at bedside. No acute events overnight. Pertinent positives and negatives as discussed above, a complete review of systems was performed and all other systems are negative. Vitals Signs Reviewed. General: nontoxic, no distress, appears at stated age Derm: warm, dry Head: atraumatic, normocephalic, symmetric Eyes: EOMI, no lid lag, anicteric sclera Mouth: no lip lesion, mucus membranes moist Cardiovascular: S1S2 reg, no murmur Lungs: CTA bilateral, no rhonchi, no rales , no accessory muscle use Abdominal: soft, nontender to palpation, no guarding, no appreciable organomegaly Ext: no gross muscle atrophy, no edema, no contractures, right lower extremity in a boot Neuro: CN II-XI grossly intact, no focal neuro deficits Psych: Alert, oriented, appropriate affect Data Reviewed Today: Pertinent Labs: Hemoglobin 8.6, sodium 132, potassium 6.3, creatinine 3.61 Imaging: No new imaging Assessment and Plan: Acute kidney injury on chronic kidney disease stage III Hyperkalemia Anorexia recent right 3rd toe fracture -Nephrology consulted, pending recommendations -Hold diuretics -Given albuterol in the ED, also on lokelma 10 TID -Generalized weakness, anorexia likely in the setting of uremia -repeat BMP tomorrow -has a boot for recent fracture, seen by ortho outpatient Chronic: COPD/asthma Systolic CHF Dyslipidemia Atrial fibrillation on Eliquis DVT ppx: Eliquis Code status: Full code Anticipated discharge place: Pending clinical course Anticipated discharge time: Pending clinical course Objective - Vital Signs Vital signs: Vital Signs Temp 97.8 F 09/14/22 07:15 Pulse 66 09/14/22 08:37 Resp 19 09/14/22 07:40 BP 133/73 09/14/22 07:15 Pulse Ox 94 L 09/14/22 07:15 FiO2 Intake & Output 09/13/22 09/14/22 09/14/22 18:59 06:59 18:59 Intake Total 100 250 Output Total 350 1120 Balance -250 -870 Weight 83.461 kg Intake: Intake, IV Titration 100 250 Amount Sodium Chloride 0.9% 1, 100 250 000 ml @ 50 mls/hr IV . Q20H STA Rx#:[id number] Output: Urine 350 1120 Other: Voiding Method Indwelling Catheter Indwelling Catheter - Labs CBC & Chem 7: 09/14/22 04:39 09/14/22 04:39 Labs: Abnormal Lab Results - Last 24 Hours (Table) 09/13/22 09/14/22 09/14/22 Range/Units 12:18 04:39 04:39 RBC 2.64 L (4.30-5.90) m/uL Hgb 8.6 L (13.0-17.5) gm/dL Hct 25.5 L (39.0-53.0) % Sodium 132 L 132 L (137-145) mmol/L Potassium 6.5 H* 6.3 H* (3.5-5.1) mmol/L BUN 89 H 84 H (9-20) mg/dL Creatinine 3.57 H 3.61 H (0.66-1.25) mg/dL Glucose 63 L (74-99) mg/dL Magnesium 2.5 H (1.6-2.3) mg/dL Alkaline Phosphatase 132 H (38-126) U/L Albumin 3.3 L (3.5-5.0) g/dL
[2022-09-14] MEDS ORDERED: FUROSEMIDE 10 MG/ML 10 ML VIAL IV STA (13:59)
--- NOTE | 2022-09-14 14:08 | P.NPCON ---
History of Present Illness - Reason for Consult Consult date: 09/14/22 acute renal failure, hyperkalemia - Chief Complaint Abnormal labs - History of Present Illness 67-year-old gentleman [facility]. He has chronic kidney disease stage IV with a baseline creatinine around 3.0-3.2 MG per DL. On presentation creatinine was 3.5 with a potassium of 6.5, improved to 6.3 today with medical management. Riley was placed, good urine output. Also on IV fluids. Not on any GERALDO inhibitor's, Aldactone/ARB's. He takes Bumex as outpatient. Not on potassium supplements as per the chart. Review of Systems Constitutional: Reports as per HPI Past Medical History Past Medical History: Asthma, Heart Failure, COPD, GERD/Reflux, Hyperlipidemia, Prostate Disorder Additional Past Medical History / Comment(s): HYPOTENSION, PAST ANEMIA USED TO TAKE IRON SUPPLEMENTS, SEASONAL ALLERGIES, ENLARGED PROSTATE. GOUT. NEUROPATHY History of Any Multi-Drug Resistant Organisms: None Reported Past Surgical History: Hernia Repair, Orthopedic Surgery Additional Past Surgical History / Comment(s): FOOT SURG(.scraped bones- ancelmo 5th toes), cataracts- lens implants, [facility] HERNIA REPAIR W/MESH Past Anesthesia/Blood Transfusion Reactions: No Reported Reaction Past Psychological History: No Psychological Hx Reported Smoking Status: Never smoker Past Alcohol Use History: Occasional Additional Past Alcohol Use History / Comment(s): 3-5 mixed rinks(vodka) per day. 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 [place] Medications and Allergies Home Medications Medication Instructions Recorded Confirmed Type Montelukast [Singulair] 10 mg PO DAILY 07/30/15 09/13/22 History Tamsulosin HCl [Flomax] 0.4 mg PO DAILY 07/21/17 09/13/22 History Apixaban [Eliquis] 2.5 mg PO BID 08/28/22 09/13/22 History Lovastatin [Mevacor] 20 mg PO HS 08/28/22 09/13/22 History Acetaminophen Tab [Tylenol] 650 mg PO Q6HR PRN tab 09/02/22 09/13/22 Rx Bumetanide [BUMEX] 1 mg PO DAILY #30 tab 09/02/22 09/13/22 Rx Acetaminophen-Codeine 300-30mg 1 tab PO Q12H PRN 09/13/22 09/13/22 History [Tylenol w/codeine #3] Budesonide 0.5 mg INHALATION RT-BID 09/13/22 09/13/22 History Ipratropium-Albuterol Nebulize 3 ml INHALATION RT-Q4H PRN 09/13/22 09/13/22 History [Duoneb 0.5 mg-3 mg/3 ml Soln] Melatonin 5 mg PO HS PRN 09/13/22 09/13/22 History Allergies Allergy/AdvReac Type Severity Reaction Status Date / Time prednisone Allergy Hallucinati Verified 09/13/22 16:40 ons Physical Exam Vitals: Vital Signs Temp Pulse Pulse Resp BP BP Pulse Ox 09/14/22 08:37 66 09/14/22 08:27 62 09/14/22 07:40 68 19 09/14/22 07:15 97.8 F 68 14 133/73 94 L 09/14/22 01:28 97.5 F L 68 19 126/58 97 09/13/22 21:30 97.9 F 79 18 139/61 97 09/13/22 19:22 82 09/13/22 19:12 82 09/13/22 17:16 82 18 119/51 96 09/13/22 16:21 96 18 120/54 94 L 09/13/22 15:51 86 09/13/22 15:34 76 Intake and Output 09/13/22 09/14/22 09/14/22 22:59 06:59 14:59 Intake Total 100 250 Output Total 350 1120 Balance -250 -870 Intake: Intake, IV Titration 100 250 Amount Sodium Chloride 0.9% 1, 100 250 000 ml @ 50 mls/hr IV . Q20H STA Rx#:[id number] Output: Urine 350 1120 Other: Voiding Method Indwelling Catheter Indwelling Catheter Weight 83.461 kg No acute distress S1-S2 heard Lungs clear Trace edema Results - Lab Results Most recent lab results Calcium 8.8 mg/dL (8.4-10.2) 09/14/22 04:39 Magnesium 2.5 mg/dL (1.6-2.3) H 09/13/22 12:18 09/14/22 04:39 09/14/22 04:39 Assessment and Plan Assessment: #1 CK D4, progressing to CK D5. #2 hyperkalemia multifactorial. #3 metabolic acidosis secondary to acute kidney injury #4 hypertension with chronic kidney disease #5 anemia with chronic kidney disease Plan: #1 currently has Riley catheter, continue with IV fluids. #2 one dose of Lasix 60 mg IV push #3 continue with lokelma for hyperkalemia. #4 if potassium continues to remain high, may need dialysis.
[2022-09-14] MEDS: ATORVASTATIN 10 MG TAB PO SCH (22:04)
[2022-09-15 07:28] LABS: Potassium 6.3 mmol/L (3.5-5.1)
[2022-09-15] MEDS: MONTELUKAST 10 MG TAB PO SCH (07:48)
[2022-09-15] MEDS: TAMSULOSIN 0.4 MG CAP.ER.24H PO SCH (07:48)
[2022-09-15] MEDS: APIXABAN 2.5 MG TABLET PO SCH ×2 (07:48→20:29)
[2022-09-15 08:45] LABS: Basophils # (A) 0.04 X 10*3/uL (0.00-0.10); Basophils % (A) 0.6 %; Eosinophils # (A) 0.78 X 10*3/uL (0.04-0.35); Eosinophils % (A) 11.1 %; HCT 25.9 % (39.6-50.0); HGB 8.3 d/dL (13.0-17.0); Lymphocytes # (A) 1.86 X 10*3/uL (0.90-5.00); Lymphocytes % (A) 26.5 %; MCV 96.6 FL (80.0-97.0); Mean Platelet Volume 10.7 FL (9.5-12.2); Monocytes # (A) 0.76 X 10*3/uL (0.20-1.00); Monocytes % (A) 10.8 %; NRBC Per 100 WBC 0 X 10*3/uL (0.00-0.01); Neutrophils # (A) 3.55 X 10*3/uL (1.80-7.70); Neutrophils % (A) 50.6 %; Platelet Count 225 X 10*3/uL (140-440); RBC 2.68 X 10*6/uL (4.40-5.60); RDW 14.6 % (11.5-14.5); WBC 7.02 X 10*3/uL (4.50-10.00)
[2022-09-15 09:17] LABS: BUN/Creat Ratio 18.87 Ratio (12.00-20.00); Blood Urea Nitrogen 73.6 mg/dL (9.0-27.0); Calcium 9.1 mg/dL (8.7-10.3); Carbon Dioxide 23.5 mmol/L (21.6-31.8); Chloride 100 mmol/L (96-109); Glucose 81 mg/dL (70-110); Potassium 6.1 mmol/L (3.5-5.5); Sodium 135 mmol/L (135-145)
[2022-09-15] MEDS: IPRATROPIUM-ALBUTEROL 3 ML NEB INHALATION PRN ×2 (09:38→21:14)
[2022-09-15] MEDS: BUDESONIDE 0.5 MG/2 ML NEBU INHALATION SCH ×2 (09:38→21:14)
[2022-09-15] MEDS: SODIUM ZIRCONIUM CYCLOSILICATE 10 GM PACKET PO SCH ×3 (11:16→20:33)
--- NOTE | 2022-09-15 14:29 | P.PN ---
Subjective Patient is seen for follow-up for acute kidney injury and top of chronic kidney disease. Patient has underlying CK D stage IV with baseline creatinine around 3-3.2 mg/dL. He was noted to have significant hyperkalemia. Riley catheter was placed in the hospital. It is unclear if patient had urine retention. Serum potassium remains elevated at about 6.2-6.1 mg/L. Ultrasound on 08/29/2022 did not show any evidence of hydronephrosis. At that times potassium was not elevated. 24 hour urine output documented at 1.2 L. Blood pressure is not low. Serum creatinine increased to 3.9 today. Objective - Vital Signs Vital signs: Vital Signs Temp 98.2 F 09/15/22 13:59 Pulse 63 09/15/22 13:59 Resp 17 09/15/22 13:59 BP 138/75 09/15/22 13:59 Pulse Ox 98 09/15/22 13:59 FiO2 Intake & Output 09/14/22 09/15/22 09/15/22 18:59 06:59 18:59 Output Total 1800 1200 Balance -1800 -1200 Output: Urine 1800 1200 Other: Voiding Method Indwelling Catheter Indwelling Catheter Indwelling Catheter - Exam Patient is awake, comfortable, no acute distress Examination of the heart S1 and S2 Examination the lungs bilateral breath sounds are heard Abdomen is soft nontender Examination lower extremity shows no significant edema 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 Acute kidney injury on top of chronic kidney disease. Rule out obstructive uropathy. Possible component of ATN. Currently nonoliguric. Riley catheter is currently in place. It is unclear if patient had urinary retention and Riley catheter was initially placed. 2. CK D stage IV with baseline creatinine around 3-3.2 mg/dL secondary to nephrosclerosis 3. Hyperkalemia associated with chronic kidney disease. Blood sugars are not elevated. No active GI bleed noted. Patient currently has a Riley catheter. It is unclear if patient had urine retention on initial Riley catheter placement. 4. Anemia of chronic disease rule out iron deficiency, rule out GI bleed Plan: Check stool for occult blood Repeat ultrasound of the kidneys Consider IV fluids if renal function is further worse tomorrow. Continue with Riley catheter Discussed renal replacement therapy with the patient and possible initiation of dialysis this admission if renal function continues to worsen with persistent hyperkalemia.
--- NOTE | 2022-09-15 14:53 | P.PN ---
Subjective Progress Note Date: 09/15/22 Hospital Course: 87-year-old male with history of chronic kidney disease, COPD/asthma, systolic CHF with EF 45%, dyslipidemia presenting from nursing facility for abnormal labs. In the ED, temperature was 98.2, pulse 64, respiratory rate 18, blood pressure 120/54, saturating at 94% on room air. WBC 7.4, hemoglobin 9, at baseline, sodium 132, potassium 6.5, creatinine 3.57, slightly up from baseline, glucose 63, magnesium 2.5, negative urine. Patient given normal saline at 50 mL an hour, and also lokelma. Patient admitted for acute kidney injury on chronic kidney disease, and hyperkalemia. Nephrology has been consulted. Given diuretics, albuterol, lokelma. Subjective: Patient seen and examined at bedside. No acute events overnight. Denies any new complaints. Has a Riley catheter in place. Pertinent positives and negatives as discussed above, a complete review of systems was performed and all other systems are negative. Vitals Signs Reviewed. General: nontoxic, no distress, appears at stated age Derm: warm, dry Head: atraumatic, normocephalic, symmetric Eyes: EOMI, no lid lag, anicteric sclera Mouth: no lip lesion, mucus membranes moist Cardiovascular: S1S2 reg, no murmur Lungs: CTA bilateral, no rhonchi, no rales , no accessory muscle use Abdominal: soft, nontender to palpation, no guarding, no appreciable organomegaly Ext: no gross muscle atrophy, no edema, no contractures, right lower extremity in a boot Neuro: CN II-XI grossly intact, no focal neuro deficits Psych: Alert, oriented, appropriate affect Data Reviewed Today: Pertinent Labs: Hemoglobin 8.6, sodium 132, potassium 6.3, creatinine 3.61 Imaging: No new imaging Assessment and Plan: Acute kidney injury on chronic kidney disease stage III Hyperkalemia Anorexia recent right 3rd toe fracture Acute on chronic normocytic anemia -Nephrology note reviewed, repeat ultrasound, continue Riley for accurate -Given 60 mg IV Lasix yesterday, on lokelma 10 3 times a day, -Generalized weakness, anorexia likely in the setting of uremia -repeat BMP tomorrow -has a boot for recent fracture, seen by ortho outpatient -Anemia possibly in the setting of renal disease, no reports of bleeding -CBC tomorrow. Chronic: COPD/asthma Systolic CHF Dyslipidemia Atrial fibrillation on Eliquis DVT ppx: Eliquis Code status: Full code Anticipated discharge place: Pending clinical course Anticipated discharge time: Pending clinical course Objective - Vital Signs Vital signs: Vital Signs Temp 98.2 F 09/15/22 13:59 Pulse 63 09/15/22 13:59 Resp 17 09/15/22 13:59 BP 138/75 09/15/22 13:59 Pulse Ox 98 09/15/22 13:59 FiO2 Intake & Output 09/14/22 09/15/22 09/15/22 18:59 06:59 18:59 Output Total 1800 1200 Balance -1800 -1200 Output: Urine 1800 1200 Other: Voiding Method Indwelling Catheter Indwelling Catheter Indwelling Catheter - Labs CBC & Chem 7: 09/15/22 06:09 09/15/22 06:09 Labs: Abnormal Lab Results - Last 24 Hours (Table) 09/14/22 09/15/22 09/15/22 Range/Units 04:39 06:09 06:09 RBC 2.68 L (4.40-5.60) X 10*6/uL Hgb 8.3 L (13.0-17.0) d/dL Hct 25.9 L (39.6-50.0) % RDW 14.6 H (11.5-14.5) % Eosinophils # 0.78 H (0.04-0.35) X 10*3/uL Potassium 6.3 H* 6.1 H* (3.5-5.1) mmol/L BUN 73.6 H (9.0-27.0) mg/dL Creatinine 3.9 H (0.6-1.5) mg/dL Est GFR (CKD-EPI) 14 L (>=60)
[2022-09-15] MEDS ORDERED: DARBEPOETIN ALFA 60 MCG/0.3 ML SYRINGE SQ SCH (15:00)
--- NOTE | 2022-09-15 19:36 | US ---
EXAMINATION TYPE: US kidneys/renal and bladder DATE OF EXAM: 09/15/2022 COMPARISON: 08/29/22 CLINICAL INDICATION: Male, 87 years old with history of acute kidney injury. EXAM MEASUREMENTS: Right Kidney: 13.1 x 5.8 x 6.3 cm Left Kidney: 13.7 x 5.6 x 6.0 cm Right Kidney: No hydronephrosis or masses seen Left Kidney: No hydronephrosis or masses seen There is some renal cortical thinning and increased cortical echogenicity. Bladder: Empty due to garcia Bilateral Jets seen: No IMPRESSION: No hydronephrosis. Some cortical changes suggesting chronic medical renal disease. Garcia catheter in place.
[2022-09-15] MEDS: ATORVASTATIN 10 MG TAB PO SCH (20:29)
[2022-09-15 20:47] LABS: % Iron Saturation 15.08 (15.00-50.00)
[2022-09-15] MEDS: Acetaminophen-Codeine 300-30mg TAB PO PRN (23:35)
[2022-09-15] MEDS: MELATONIN 5 MG TABLET PO PRN (23:36)
[2022-09-16] MEDS: IPRATROPIUM-ALBUTEROL 3 ML NEB INHALATION PRN ×2 (08:49→20:55)
[2022-09-16] MEDS: BUDESONIDE 0.5 MG/2 ML NEBU INHALATION SCH ×2 (08:49→20:55)
[2022-09-16] MEDS: MONTELUKAST 10 MG TAB PO SCH (09:05)
[2022-09-16] MEDS: APIXABAN 2.5 MG TABLET PO SCH ×2 (09:05→21:17)
[2022-09-16] MEDS: TAMSULOSIN 0.4 MG CAP.ER.24H PO SCH (09:06)
[2022-09-16] MEDS: SODIUM ZIRCONIUM CYCLOSILICATE 10 GM PACKET PO SCH (09:18)
[2022-09-16] MEDS: NYSTATIN 100,000 UNIT/GM POWD 15 GM TOPICAL SCH ×3 (11:51→21:17)
--- NOTE | 2022-09-16 12:54 | P.PN ---
Subjective Patient is seen for follow-up for acute kidney injury and top of chronic kidney disease. Patient has underlying CK D stage IV with baseline creatinine around 3-3.2 mg/dL. He was noted to have significant hyperkalemia. Riley catheter was placed in the hospital. It is unclear if patient had urine retention on initial admission. Serum potassium remains elevated at about 6.2-6.1 mg/L. repeat ultrasound shows no evidence of hydronephrosis. 24 hour urine output documented at 1.2 L. Blood pressure is not low. Labs are pending from today Objective - Vital Signs Vital signs: Vital Signs Temp 98.4 F 09/16/22 07:25 Pulse 68 09/16/22 09:04 Resp 15 09/16/22 07:25 BP 150/71 09/16/22 07:25 Pulse Ox 95 09/16/22 07:25 FiO2 Intake & Output 09/15/22 09/16/22 09/16/22 18:59 06:59 18:59 Intake Total 600 Output Total 950 950 Balance -950 -350 Intake: IV 600 .9 sodium chloride 600 Output: Urine 950 950 Other: Voiding Method Indwelling Catheter Indwelling Catheter Indwelling Catheter - Exam Patient is awake, comfortable, no acute distress Examination of the heart S1 and S2 Examination the lungs bilateral breath sounds are heard Abdomen is soft nontender Examination lower extremity shows no significant 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 Acute kidney injury on top of chronic kidney disease. Possible obstructive uropathy. Possible component of ATN. Currently nonoliguric. Riley catheter is currently in place. It is unclear if patient had urinary retention and Riley catheter was initially placed. Renal function has been worsening even with indwelling Riley catheter [place] at 2. CK D stage IV with baseline creatinine around 3-3.2 mg/dL secondary to nephrosclerosis 3. Hyperkalemia associated with chronic kidney disease. Blood sugars are not elevated. No active GI bleed noted. Patient currently has a Riley catheter. It is unclear if patient had urine retention on initial Riley catheter placement. Discussed initiating renal replacement therapy if potassium remains elevated with worsening renal function. 4. Anemia of chronic disease rule out iron deficiency, rule out GI bleed Plan: Check stool for occult blood Add IV iron Add IV fluids Continue with Riley catheter Discussed renal replacement therapy with the patient and possible initiation of dialysis this admission if renal function continues to worsen with persistent hyperkalemia.
[2022-09-16 14:09] LABS: Basophils # (A) 0.03 X 10*3/uL (0.00-0.10); Basophils % (A) 0.4 %; Eosinophils # (A) 0.91 X 10*3/uL (0.04-0.35); Eosinophils % (A) 12.4 %; HCT 25.2 % (39.6-50.0); Lymphocytes # (A) 1.96 X 10*3/uL (0.90-5.00); Lymphocytes % (A) 26.7 %; MCH 30.2 pg (27.0-32.0); MCHC 31.7 d/dL (32.0-37.0); MCV 95.1 FL (80.0-97.0); Mean Platelet Volume 10.6 FL (9.5-12.2); Monocytes # (A) 0.94 X 10*3/uL (0.20-1.00); Monocytes % (A) 12.8 %; NRBC Per 100 WBC 0 X 10*3/uL (0.00-0.01); Neutrophils % (A) 47.6 %; Platelet Count 219 X 10*3/uL (140-440); RBC 2.65 X 10*6/uL (4.40-5.60); RDW 14.6 % (11.5-14.5); WBC 7.35 X 10*3/uL (4.50-10.00)
[2022-09-16 14:39] LABS: BUN/Creat Ratio 19.76 Ratio (12.00-20.00); Blood Urea Nitrogen 67.2 mg/dL (9.0-27.0); Calcium 8.9 mg/dL (8.7-10.3); Carbon Dioxide 21.8 mmol/L (21.6-31.8); Chloride 100 mmol/L (96-109); Glucose 78 mg/dL (70-110); Phosphorus 6.3 mg/dL (2.4-5.1); Potassium 5.4 mmol/L (3.5-5.5); Sodium 134 mmol/L (135-145)
--- NOTE | 2022-09-16 14:47 | CDI ---
Documentation Clarification Form Date: 09/16/2022 02:25:11 PM From: Patricia Tse RN CCDS Phone: [phone] Admit Date: 09/13/2022 12:10:00 PM Patient Name: Jesus Quispe Visit Number: [id number] Discharge Date: ATTENTION: The Clinical Documentation Specialists (CDI) and [facility] Coding Staff appreciate your assistance in clarifying documentation. Please respond to the clarification below the line at the bottom and electronically sign. The CDI & [facility] Coding staff will review the response and follow-up if needed. Please note: Queries are made part of the Legal Health Record. If you have any questions, please contact the author of this message via ITS. Dr. Sasha Grier Conflicting documentation has been found in the medical record. As attending physician, please provide clarification. CKD stage IV, Nephrology note, 09/16. CKD stage III, Medicine note, 09/15. History/Risk Factors: 87-year-old male presents to the ED after being found to have hyperkalemia and worsening renal function form [facility]. Was administered Insulin, Dextrose and Kayexalate at [facility]. Medical history: Asthma, CHF, COPD, GERD/reflux, HLD, Prostate and CKD. 09/13, H&P. Clinical Indicators: Labs: 08/28 Cr 3.57; BUN 69; GFR 15 09/14 - Cr 3.61; BUN 84; GFR 14 Labs: 09/13 K 6.5; 09/14 K 6.3; 09/15 6.1; Treatment: 09/13 Lokelma po x 1; 09/13 Lokelma po TID x 4 doses; 09/14 Lasix IV x 1; 09/15 Lokelma TID x 4 doses, 09/15 Aranesp Sq Q7D; Please clarify which diagnosis is most appropriate: [ ] CKD III (GFR 30-59) [ X ] CKD IV (GFR 15-29) [ ] Other (please specify) [ ] Unable to determine CKD Stage 1 (GFR > 90) CKD Stage 2 (GFR 60-89) CKD Stage 3 (GFR 30-59) CKD Stage 3a (GFR 45-59) CKD Stage 3b (GFR 30-44) CKD Stage 4 (GFR 15-29) CKD Stage 5 (GFR <15) ESRD (Template Last Revised: April 2020) MTDD
[2022-09-16] MEDS: SODIUM CHLORIDE 0.9% 1,000 ML IV SCH (15:23)
--- NOTE | 2022-09-16 18:05 | P.PN ---
Subjective Progress Note Date: 09/16/22 (delayed charting seen at 1045) Patient is an 87-year-old male for history of chronic kidney disease stage IV, COPD/asthma, systolic congestive heart failure with an ejection fraction 45%, and dyslipidemia who [facility] for abnormal [facility]. In the emergency department vital signs within normal limits. Labs remarkable for sodium of 132, potassium 6.5, creatinine 3.57, glucose 63, and magnesium of 2.5. He was started on normal saline and loKelma He was admitted for acute kidney injury. Nephrology was consulted. Patient seen and examined at bedside. Denies any chest pain, shortness of breath, nausea, vomiting. Overall feeling well other than being slightly tired. Vital signs reviewed General: nontoxic, no distress, appears at stated age Cardiovascular: S1S2 reg, no murmur, positive posterior tibial pulse bilateral, Lungs: CTA bilateral, no rhonchi, no rales , no accessory muscle use Abdominal: soft, nontender to palpation, no guarding, no appreciable organomegaly Ext: no gross muscle atrophy, no edema b/l lower extremities, no contractures Neuro: CN II-XI grossly intact, no focal neuro deficits Psych: Alert, oriented, appropriate affect Assessment/plan: Acute kidney injury on chronic kidney disease stage IV with baseline creatinine 3-3.2 Refractory hyperkalemia associated with chronic kidney disease Anemia of chronic disease -Nephrology note reviewed: Add IV iron, add IV fluids, continue with Riley catheter -Continue to hold Bumex -Continue with IV fluids at 75 mL/h Anorexia -Encourage oral intake Recent right third toe fracture -Boot to continue and outpatient fourth ne follow-up Chronic: COPD/asthma without exacerbation Systolic congestive heart failure, ejection fraction 45% Dyslipidemia Atrial fibrillation on Eliquis Imaging: None Data Review: Vitals reviewed and remarkable for blood pressure 150/71 Labs reviewed hemoglobin stable at 8, sodium 134, potassium 5.4, BUN 67, creatinine 3.4 improved from 3.9, T sat 15, transferrin 128, phosphorus 6.3 DVT prophylaxis: Eliquis Anticipated discharge date: Pending Clinical Course Anticipated discharge place: Pending Clinical Course This dictation was prepared using [employer] voice recognition software. Though every attempt is made to correct errors during dictation some may still exist. Objective - Vital Signs Vital signs: Vital Signs Temp 98.0 F 09/16/22 13:45 Pulse 60 09/16/22 13:45 Resp 15 09/16/22 13:45 BP 135/56 09/16/22 13:45 Pulse Ox 97 09/16/22 13:45 FiO2 Intake & Output 09/15/22 09/16/22 09/16/22 18:59 06:59 18:59 Intake Total 600 Output Total 400 121 4034 Balance -950 -350 -1600 Intake: IV 600 .9 sodium chloride 600 Output: Urine 227 482 4645 Other: Voiding Method Indwelling Catheter Indwelling Catheter Indwelling Catheter - Labs CBC & Chem 7: 09/16/22 07:07 09/16/22 07:07 Labs: Abnormal Lab Results - Last 24 Hours (Table) 09/15/22 09/16/22 09/16/22 Range/Units 15:00 07:07 07:07 RBC 2.65 L (4.40-5.60) X 10*6/uL Hgb 8.0 L (13.0-17.0) d/dL Hct 25.2 L (39.6-50.0) % MCHC 31.7 L (32.0-37.0) d/dL RDW 14.6 H (11.5-14.5) % Eosinophils # 0.91 H (0.04-0.35) X 10*3/uL Sodium 134 L (135-145) mmol/L Anion Gap 12.20 H (4.00-12.00) mmol/L BUN 67.2 H (9.0-27.0) mg/dL Creatinine 3.4 H (0.6-1.5) mg/dL Est GFR (CKD-EPI) 17 L (>=60) Phosphorus 6.3 H (2.4-5.1) mg/dL Iron 27 L (65-175) UG/DL TIBC 179 L (228-460) UG/DL Transferrin 128.0 L (204.0-354.0) mg/dL
[2022-09-16] MEDS: ATORVASTATIN 10 MG TAB PO SCH (21:17)
[2022-09-16] MEDS: MELATONIN 5 MG TABLET PO PRN (21:21)
[2022-09-16] MEDS: Acetaminophen-Codeine 300-30mg TAB PO PRN (21:21)
[2022-09-17] MEDS: SODIUM CHLORIDE 0.9% 1,000 ML IV SCH ×2 (02:28→18:35)
[2022-09-17] MEDS: NYSTATIN 100,000 UNIT/GM POWD 15 GM TOPICAL SCH ×3 (08:48→21:19)
[2022-09-17] MEDS: MONTELUKAST 10 MG TAB PO SCH (08:48)
[2022-09-17] MEDS: APIXABAN 2.5 MG TABLET PO SCH ×2 (08:48→21:19)
[2022-09-17] MEDS: TAMSULOSIN 0.4 MG CAP.ER.24H PO SCH (08:48)
[2022-09-17] MEDS: IPRATROPIUM-ALBUTEROL 3 ML NEB INHALATION PRN ×2 (09:01→20:26)
[2022-09-17] MEDS: BUDESONIDE 0.5 MG/2 ML NEBU INHALATION SCH ×2 (09:01→20:26)
[2022-09-17 10:33] LABS: HGB 8.5 gm/dL (13.0-17.5); Hypochromasia Slight; MCH 31.7 pg (25.0-35.0); MCHC 32.5 g/dL (31.0-37.0); MCV 97.4 fL (80.0-100.0); Platelet Count 193 k/uL (150-450); RBC 2.67 m/uL (4.30-5.90); RDW 15.1 % (11.5-15.5); WBC 6.5 k/uL (3.8-10.6)
[2022-09-17 10:49] LABS: African American GFR (CKD) 20 (>60 ml/min/1.73 sqM); Anion Gap 10 mmol/L; Blood Urea Nitrogen 61 mg/dL (9-20); Calcium 8.6 mg/dL (8.4-10.2); Carbon Dioxide 22 mmol/L (22-30); Chloride 103 mmol/L (98-107); Glucose 103 mg/dL (74-99); Non-African American GFR(CKD) 17 (>60 ml/min/1.73 sqM); Potassium 4.5 mmol/L (3.5-5.1); Sodium 135 mmol/L (137-145)
[2022-09-17] MEDS: SODIUM FERRIC GLUCONAT-SUCROSE 125 MG in SODIUM CHLORIDE 0.9% 100 ML IVPB SCH (11:24)
--- NOTE | 2022-09-17 13:28 | P.PN ---
Subjective Patient is seen for follow-up for acute kidney injury and top of chronic kidney disease. Patient has underlying CK D stage IV with baseline creatinine around 3-3.2 mg/dL. He was noted to have significant hyperkalemia. Riley catheter was placed in the hospital. It is unclear if patient had urine retention on initial admission. Potassium was elevated however it is now decreased to 4.5. Creatinine has also decreased to 3.1 today. No significant complaints Objective - Vital Signs Vital signs: Vital Signs Temp 98.1 F 09/17/22 07:05 Pulse 70 09/17/22 09:15 Resp 18 09/17/22 07:05 BP 161/67 09/17/22 07:05 Pulse Ox 94 L 09/17/22 07:05 FiO2 Intake & Output 09/16/22 09/17/22 09/17/22 18:59 06:59 18:59 Output Total 1600 550 Balance -1600 -550 Output: Urine 1600 550 Other: Voiding Method Indwelling Catheter Indwelling Catheter Indwelling Catheter - Exam Patient is awake, comfortable, no acute distress Examination of the heart S1 and S2 Examination the lungs bilateral breath sounds are heard Abdomen is soft nontender Examination lower extremity shows no significant edema CARE DIRECTOR exam grossly intact - Labs CBC & Chem 7: 09/17/22 09:50 09/17/22 09:50 Labs: Abnormal Lab Results - Last 24 Hours (Table) 09/16/22 09/16/22 09/17/22 Range/Units 07:07 07:07 09:50 RBC 2.65 L 2.67 L (4.40-5.60) X 10*6/uL Hgb 8.0 L 8.5 L (13.0-17.0) d/dL Hct 25.2 L 26.0 L (39.6-50.0) % MCHC 31.7 L (32.0-37.0) d/dL RDW 14.6 H (11.5-14.5) % Eosinophils # 0.91 H (0.04-0.35) X 10*3/uL Sodium 134 L (135-145) mmol/L Anion Gap 12.20 H (4.00-12.00) mmol/L BUN 67.2 H (9.0-27.0) mg/dL Creatinine 3.4 H (0.6-1.5) mg/dL Est GFR (CKD-EPI) 17 L (>=60) Glucose (74-99) mg/dL Phosphorus 6.3 H (2.4-5.1) mg/dL 09/17/22 Range/Units 09:50 RBC (4.40-5.60) X 10*6/uL Hgb (13.0-17.0) d/dL Hct (39.6-50.0) % MCHC (32.0-37.0) d/dL RDW (11.5-14.5) % Eosinophils # (0.04-0.35) X 10*3/uL Sodium 135 L (135-145) mmol/L Anion Gap (4.00-12.00) mmol/L BUN 61 H (9.0-27.0) mg/dL Creatinine 3.14 H (0.6-1.5) mg/dL Est GFR (CKD-EPI) (>=60) Glucose 103 H (74-99) mg/dL Phosphorus (2.4-5.1) mg/dL Assessment and Plan Assessment: 1. Acute kidney injury on top of chronic kidney disease. Possible obstructive uropathy. Possible component of ATN. Currently nonoliguric. Riley catheter is currently in place. It is unclear if patient had urinary retention and Riley catheter was initially placed. Renal function has started to improve now. 2. CK D stage IV with baseline creatinine around 3-3.2 mg/dL secondary to nephrosclerosis 3. Hyperkalemia associated with chronic kidney disease. Blood sugars are not elevated. No active GI bleed noted. Patient currently has a Riley catheter. It is unclear if patient had urine retention on initial Riley catheter placement. Discussed initiating renal replacement therapy if potassium remains elevated with worsening renal function. Potassium has now improved to 4.5 4. Anemia of chronic disease rule out iron deficiency, rule out GI bleed Plan: Continue IV fluids Repeat labs in a.m. No need for renal replacement therapy this admission.
--- NOTE | 2022-09-17 15:44 | P.PN ---
Subjective Progress Note Date: 09/17/22 (delayed charting seen at 1010) Patient is an 87-year-old male for history of chronic kidney disease stage IV, COPD/asthma, systolic congestive heart failure with an ejection fraction 45%, and dyslipidemia who presented to the ER from his senior care for abnormal labs. In the emergency department vital signs within normal limits. Labs remarkable for sodium of 132, potassium 6.5, creatinine 3.57, glucose 63, and magnesium of 2.5. He was started on normal saline and loKelma He was admitted for acute kidney injury. Nephrology was consulted. His diuretics were held and IV fluids started. His renal function improved slowly. Patient seen and examined at bedside. He denies any chest pain, shortness breath, nausea, vomiting. He states he has not been out of bed since arriving to our facility. Vital signs reviewed General: nontoxic, no distress, appears at stated age Cardiovascular: S1S2 reg, no murmur, positive posterior tibial pulse bilateral, Lungs: CTA bilateral, no rhonchi, no rales , no accessory muscle use Abdominal: soft, nontender to palpation, no guarding, no appreciable organomegaly Ext: no gross muscle atrophy, no edema b/l lower extremities, no contractures Neuro: CN II-XI grossly intact, no focal neuro deficits Psych: Alert, oriented, appropriate affect Assessment/plan: Acute kidney injury on chronic kidney disease stage IV with baseline creatinine 3-3.2 Refractory hyperkalemia associated with chronic kidney disease Anemia of chronic disease -Nephrology note reviewed. No indication for renal replacement therapy -Discontinue Riley catheter perform voiding trial -IV iron 125 mg, Dose # 2/3 today -Continue to hold Bumex -Continue with IV fluids at 75 mL/h Anorexia -Encourage oral intake Recent right third toe fracture -Boot to continue and outpatient fourth ar follow-up Chronic: COPD/asthma without exacerbation Systolic congestive heart failure, ejection fraction 45% Dyslipidemia Atrial fibrillation on Eliquis Imaging: None Data Review: Vitals reviewed in afebrile last 24 hours. Patient has been mildly hypertensive renal systolic blood pressure 144-161. Labs reviewed and remarkable for hemoglobin 8.5, sodium 135, BUN 61, creatinine 3.14. DVT prophylaxis: Eliquis Anticipated discharge date: in AM Anticipated discharge place: Return to prior facility This dictation was prepared using [employer] voice recognition software. Though every attempt is made to correct errors during dictation some may still exist. Objective - Vital Signs Vital signs: Vital Signs Temp 99.0 F 09/17/22 13:31 Pulse 74 09/17/22 13:31 Resp 17 09/17/22 13:31 BP 155/72 09/17/22 13:31 Pulse Ox 94 L 09/17/22 13:31 FiO2 Intake & Output 09/16/22 09/17/22 09/17/22 18:59 06:59 18:59 Output Total 1600 550 Balance -1600 -550 Output: Urine 1600 550 Other: Voiding Method Indwelling Catheter Indwelling Catheter Indwelling Catheter - Labs CBC & Chem 7: 09/17/22 09:50 09/17/22 09:50 Labs: Abnormal Lab Results - Last 24 Hours (Table) 09/17/22 09/17/22 Range/Units 09:50 09:50 RBC 2.67 L (4.30-5.90) m/uL Hgb 8.5 L (13.0-17.5) gm/dL Hct 26.0 L (39.0-53.0) % Sodium 135 L (137-145) mmol/L BUN 61 H (9-20) mg/dL Creatinine 3.14 H (0.66-1.25) mg/dL Glucose 103 H (74-99) mg/dL
[2022-09-17] MEDS: ATORVASTATIN 10 MG TAB PO SCH (21:19)
[2022-09-17] MEDS: Acetaminophen-Codeine 300-30mg TAB PO PRN (22:30)
[2022-09-17] MEDS: MELATONIN 5 MG TABLET PO PRN (22:30)
[2022-09-18] MEDS: SODIUM CHLORIDE 0.9% 1,000 ML IV SCH ×2 (05:29→21:11)
[2022-09-18 08:07] LABS: African American GFR (CKD) 22 (>60 ml/min/1.73 sqM); Anion Gap 10 mmol/L; Blood Urea Nitrogen 52 mg/dL (9-20); Calcium 8.9 mg/dL (8.4-10.2); Carbon Dioxide 21 mmol/L (22-30); Chloride 105 mmol/L (98-107); Glucose 94 mg/dL (74-99); Non-African American GFR(CKD) 19 (>60 ml/min/1.73 sqM); Potassium 4.1 mmol/L (3.5-5.1); Sodium 136 mmol/L (137-145)
[2022-09-18] MEDS: NYSTATIN 100,000 UNIT/GM POWD 15 GM TOPICAL SCH ×3 (08:59→22:10)
[2022-09-18] MEDS: MONTELUKAST 10 MG TAB PO SCH (08:59)
[2022-09-18] MEDS: APIXABAN 2.5 MG TABLET PO SCH ×2 (08:59→22:09)
[2022-09-18] MEDS: TAMSULOSIN 0.4 MG CAP.ER.24H PO SCH (08:59)
[2022-09-18] MEDS: BUDESONIDE 0.5 MG/2 ML NEBU INHALATION SCH ×2 (09:07→21:32)
[2022-09-18] MEDS: IPRATROPIUM-ALBUTEROL 3 ML NEB INHALATION PRN (09:07)
[2022-09-18] MEDS: SODIUM FERRIC GLUCONAT-SUCROSE 125 MG in SODIUM CHLORIDE 0.9% 100 ML IVPB SCH (09:18)
[2022-09-18] MEDS: Acetaminophen-Codeine 300-30mg TAB PO PRN ×2 (11:44→22:09)
--- NOTE | 2022-09-18 12:30 | P.DS ---
Providers Date of admission: 09/13/22 12:10 Expected date of discharge: 09/18/22 Attending physician: Juan Luis Mcdowell MD Consults: 09/13/22 15:24 Consult Physician Stat Consulting Provider: Nohelia Kwan Consult Reason/Comments: OMA on CKD hyperkalemia Do you want consulting provider notified?: Already Contacted Primary care physician: Doris Ashraf DO Hospital Course: Discharge Diagnosis: Acute kidney injury on chronic kidney disease stage IV with baseline creatinine 3-3.2 Refractory hyperkalemia associated with chronic kidney disease Anemia of chronic disease with Iron deficiency Anorexia Recent right third toe fracture COPD/asthma without exacerbation Systolic congestive heart failure, ejection fraction 45% Dyslipidemia Atrial fibrillation on [facility] Hospital Course: 87-year-old male for history of chronic kidney disease stage IV, COPD/asthma, systolic congestive heart failure with an ejection fraction 45%, and dyslipidemia who presented to the ER from his detention for abnormal labs. In the emergency department vital signs within normal limits. Labs remarkable for sodium of 132, potassium 6.5, creatinine 3.57, glucose 63, and magnesium of 2.5. He was started on normal saline and loKelma. He was admitted for acute kidney injury. Nephrology was consulted. His diuretics were held and IV fluids started. His renal function improved slowly. Anemia of chronic disease, also given iron IV. No indication for renal replacement therapy at the moment. Patient also had recent right third toe fracture, and was seen by orthopedic s urgery outpatient, will continue. Patient needs a repeat BMP and CBC as an outpatient. Patient seen and examined at bedside. Vital signs reviewed and stable. General: nontoxic, no distress, appears at stated age Cardiovascular: S1S2 reg, no murmur, positive posterior tibial pulse bilateral, Lungs: CTA bilateral, no rhonchi, no rales , no accessory muscle use Abdominal: soft, nontender to palpation, no guarding, no appreciable organomegaly Ext: no gross muscle atrophy, no edema b/l lower extremities, no contractures Neuro: CN II-XI grossly intact, no focal neuro deficits Psych: Alert, oriented, appropriate affect A total of 36 minutes of time were spent preparing this complex discharge summary. Patient was discharged on 09/18/22 at 10:50. Patient Condition at Discharge: Stable Plan - Discharge Summary Discharge Rx Participant: Yes New Discharge Prescriptions: New Ferrous Sulfate [Feosol] 325 mg PO DAILY #60 tab Ascorbic Acid [Vitamin C chew] 500 mg PO DAILY #60 tab Continue Montelukast [Singulair] 10 mg PO DAILY Tamsulosin HCl [Flomax] 0.4 mg PO DAILY Apixaban [Eliquis] 2.5 mg PO BID Acetaminophen-Codeine 300-30mg [Tylenol w/codeine #3] 1 tab PO Q12H PRN PRN Reason: Pain Budesonide 0.5 mg INHALATION RT-BID Lovastatin [Mevacor] 20 mg PO HS Acetaminophen Tab [Tylenol] 650 mg PO Q6HR PRN tab PRN Reason: Mild Pain Or Fever > 100.5 Ipratropium-Albuterol Nebulize [Duoneb 0.5 mg-3 mg/3 ml Soln] 3 ml INHALATION RT-Q4H PRN PRN Reason: Shortness Of Breath Melatonin 5 mg PO HS PRN PRN Reason: Insomnia Discontinued Bumetanide [BUMEX] 1 mg PO DAILY #30 tab Discharge Medication List Montelukast [Singulair] 10 mg PO DAILY 07/30/15 [History] Tamsulosin HCl [Flomax] 0.4 mg PO DAILY 07/21/17 [History] Apixaban [Eliquis] 2.5 mg PO BID 08/28/22 [History] Lovastatin [Mevacor] 20 mg PO HS 08/28/22 [History] Acetaminophen Tab [Tylenol] 650 mg PO Q6HR PRN tab 09/02/22 [Rx] Acetaminophen-Codeine 300-30mg [Tylenol w/codeine #3] 1 tab PO Q12H PRN 09/13/22 [History] Budesonide 0.5 mg INHALATION RT-BID 09/13/22 [History] Ipratropium-Albuterol Nebulize [Duoneb 0.5 mg-3 mg/3 ml Soln] 3 ml INHALATION RT-Q4H PRN 09/13/22 [History] Melatonin 5 mg PO HS PRN 09/13/22 [History] Ascorbic Acid [Vitamin C chew] 500 mg PO DAILY #60 tab 09/18/22 [Rx] Ferrous Sulfate [Feosol] 325 mg PO DAILY #60 tab 09/18/22 [Rx] Follow up Appointment(s)/Referral(s): Saundra Rodriguez MD [STAFF PHYSICIAN] - 10/10/22 11:40 am Doris Ashraf DO [Primary Care Provider] - 1-2 days (Please call for follow-up appointment.) Activity/Diet/Wound Care/Special Instructions: Please see your PCP and nephrology. You will likely need repeat blood work to assess your kidney function. Discharge Disposition: HOME SELF-CARE
--- NOTE | 2022-09-18 14:02 | P.PN ---
Subjective Patient is seen for follow-up for acute kidney injury and top of chronic kidney disease. Patient has underlying CK D stage IV with baseline creatinine around 3-3.2 mg/dL. He was noted to have significant hyperkalemia. Riley catheter was placed in the hospital. It is unclear if patient had urine retention on initial admission. Riley catheter was removed yesterday. This morning patient was noted to have 550 ML post void and a straight cath was performed. There are plans for discharge today. Serum creatinine decreased to 2.9 mg/dL today. Objective - Vital Signs Vital signs: Vital Signs Temp 97.8 F 09/18/22 13:10 Pulse 69 09/18/22 13:10 Resp 18 09/18/22 13:10 BP 147/68 09/18/22 13:10 Pulse Ox 100 09/18/22 13:10 FiO2 Intake & Output 09/17/22 09/18/22 09/18/22 18:59 06:59 18:59 Output Total 1400 Balance -1400 Output: Urine 1400 Other: Voiding Method Indwelling Catheter Toilet Toilet Urinal Urinal Diaper # Voids 2 1 # Bowel Movements 1 - Exam Patient is awake, comfortable, no acute distress Examination of the heart S1 and S2 Examination the lungs bilateral breath sounds are heard Abdomen is soft nontender Examination lower extremity shows no significant edema 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 Acute kidney injury on top of chronic kidney disease. Possible obstructive uropathy. Possible component of ATN. Currently nonoliguric. Riley catheter is currently in place. It is unclear if patient had urinary retention and Riley catheter was initially placed. Renal function has started to improve now. 2. CK D stage IV with baseline creatinine around 3-3.2 mg/dL secondary to nephrosclerosis 3. Hyperkalemia associated with chronic kidney disease. Blood sugars are not elevated. No active GI bleed noted. Patient currently has a Riley catheter. It is unclear if patient had urine retention on initial Riley catheter placement. Discussed initiating renal replacement therapy if potassium remains elevated with worsening renal function. Potassium has now improved to 4.5 4. Anemia of chronic disease rule out iron deficiency, rule out GI bleed Plan: Urine retention noted today. Patient will need post void bladder scan to be repeated and if this cannot be done as outpatient he will need the Riley catheter placed prior to discharge. Follow-up as outpatient in 1 week with repeat labs No need for renal replacement therapy this admission.
[2022-09-18] MEDS: MELATONIN 5 MG TABLET PO PRN (22:09)
[2022-09-18] MEDS: ATORVASTATIN 10 MG TAB PO SCH (22:09)
[2022-09-19] MEDS: SODIUM CHLORIDE 0.9% 1,000 ML IV SCH (06:22)
[2022-09-19] MEDS: BUDESONIDE 0.5 MG/2 ML NEBU INHALATION SCH (07:30)
[2022-09-19 07:40] VITALS: RESP 17
[2022-09-19] MEDS: MONTELUKAST 10 MG TAB PO SCH (08:06)
[2022-09-19] MEDS: TAMSULOSIN 0.4 MG CAP.ER.24H PO SCH (08:07)
[2022-09-19] MEDS: NYSTATIN 100,000 UNIT/GM POWD 15 GM TOPICAL SCH (08:07)
[2022-09-19] MEDS: APIXABAN 2.5 MG TABLET PO SCH (08:07)
--- NOTE | 2022-09-19 12:00 | P.PN ---
Subjective Patient is seen for follow-up for acute kidney injury and top of chronic kidney disease. Patient has underlying CK D stage IV with baseline creatinine around 3-3.2 mg/dL. He was noted to have significant hyperkalemia which has now improved. Riley catheter was placed in the hospital. It is unclear if patient had urine retention on initial admission. Riley catheter was removed but patient was noted to have retention again. He did have a straight catheterization yesterday but last post void scan was 183ml No significant complaints today. Objective - Vital Signs Vital signs: Vital Signs Temp 97.5 F L 09/19/22 07:39 Pulse 60 09/19/22 07:39 Resp 17 09/19/22 07:39 BP 128/58 09/19/22 07:39 Pulse Ox 96 09/19/22 07:39 FiO2 Intake & Output 09/18/22 09/19/22 09/19/22 18:59 06:59 18:59 Output Total 550 893 Balance -550 -893 Output: Urine 500 Post Void Residual 550 393 Other: Voiding Method Toilet Toilet Toilet Urinal Urinal Urinal Diaper Diaper # Voids 1 3 # Bowel Movements 1 # [place] 1 - Exam Patient is awake, comfortable, no acute distress Examination of the heart S1 and S2 Examination the lungs bilateral breath sounds are heard Abdomen is soft nontender Examination lower extremity shows no significant edema TRUST ADMINISTRATOR exam grossly intact - Labs CBC & Chem 7: 09/17/22 09:50 09/18/22 06:28 Assessment and Plan Assessment: 1. Acute kidney injury on top of chronic kidney disease. Possible obstructive uropathy. Possible component of ATN. Currently nonoliguric. Riley catheter is currently in place. It is unclear if patient had urinary retention and Riley catheter was initially placed. Renal function has started to improve now. 2. CK D stage IV with baseline creatinine around 3-3.2 mg/dL secondary to nephrosclerosis 3. Hyperkalemia associated with chronic kidney disease. Blood sugars are not elevated. No active GI bleed noted. Patient currently has a Riley catheter. It is unclear if patient had urine retention on initial Riley catheter placemen t. Discussed initiating renal replacement therapy if potassium remains elevated with worsening renal function. Potassium has now improved to 4.5 4. Anemia of chronic disease rule out iron deficiency, rule out GI bleed Plan: Patient can be discharged from nephrology standpoint. He should have bladder scan monitored at least once a day. Follow-up as outpatient in 1-2 weeks. Patient should also follow-up with urology as outpatient. He does not want to follow with urology in [place]
--- NOTE | 2022-09-19 12:23 | P.DS ---
Providers Date of admission: 09/13/22 12:10 Expected date of discharge: 09/19/22 Attending physician: Juan Luis Mcdowell MD Consults: 09/13/22 15:24 Consult Physician Stat Consulting Provider: Nohelia Kwan Consult Reason/Comments: OMA on CKD hyperkalemia Do you want consulting provider notified?: Already Contacted Primary care physician: Doris Ashraf DO Hospital Course: Acute kidney injury on chronic kidney disease stage IV with baseline creatinine 3-3.2 Refractory hyperkalemia associated with chronic kidney disease Urinary retention in the setting of BPH Anemia of chronic disease with Iron deficiency Anorexia Recent right third toe fracture 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 In the emergency department vital signs within normal limits. Labs remarkable for sodium of 132, potassium 6.5, creatinine 3.57, glucose 63, and magnesium of 2.5. He was started on normal saline and loKelma. He was admitted for acute kidney injury. Nephrology was consulted. His diuretics were held and IV fluids started. His renal function improved slowly. Anemia of chronic disease, also given iron IV. No indication for renal replacement therapy at the moment. Patient also had recent right third toe fracture, and was seen by orthopedic surgery outpatient, will continue. Patient needs a repeat BMP and CBC as an outpatient. He should also get daily bladder scans if possible. Outpatient follow up with urologist. Patient seen and examined at bedside. Vital signs reviewed and stable. General: nontoxic, no distress, appears at stated age Cardiovascular: S1S2 reg, no murmur, positive posterior tibial pulse bilateral, Lungs: CTA bilateral, no rhonchi, no rales , no accessory muscle use Abdominal: soft, nontender to palpation, no guarding, no appreciable organomegaly Ext: no gross muscle atrophy, no edema b/l lower extremities, no contractures Neuro: CN II-XI grossly intact, no focal neuro deficits Psych: Alert, oriented, appropriate affect A total of 36 minutes of time were spent preparing this complex discharge summary. Patient was discharged on 09/19/22 at 0937. Patient Condition at Discharge: Stable Plan - Discharge Summary Discharge Rx Participant: Yes New Discharge Prescriptions: New Ferrous Sulfate [Feosol] 325 mg PO DAILY #60 tab Ascorbic Acid [Vitamin C chew] 500 mg PO DAILY #60 tab Continue Montelukast [Singulair] 10 mg PO DAILY Tamsulosin HCl [Flomax] 0.4 mg PO DAILY Apixaban [Eliquis] 2.5 mg PO BID Budesonide 0.5 mg INHALATION RT-BID Lovastatin [Mevacor] 20 mg PO HS Acetaminophen Tab [Tylenol] 650 mg PO Q6HR PRN tab PRN Reason: Mild Pain Or Fever > 100.5 Ipratropium-Albuterol Nebulize [Duoneb 0.5 mg-3 mg/3 ml Soln] 3 ml INHALATION RT-Q4H PRN PRN Reason: Shortness Of Breath Melatonin 5 mg PO HS PRN PRN Reason: Insomnia Discontinued Bumetanide [BUMEX] 1 mg PO DAILY #30 tab Acetaminophen-Codeine 300-30mg [Tylenol w/codeine #3] 1 tab PO Q12H PRN PRN Reason: Pain Discharge Medication List Montelukast [Singulair] 10 mg PO DAILY 07/30/15 [History] Tamsulosin HCl [Flomax] 0.4 mg PO DAILY 07/21/17 [History] Apixaban [Eliquis] 2.5 mg PO BID 08/28/22 [History] Lovastatin [Mevacor] 20 mg PO HS 08/28/22 [History] Acetaminophen Tab [Tylenol] 650 mg PO Q6HR PRN tab 09/02/22 [Rx] Budesonide 0.5 mg INHALATION RT-BID 09/13/22 [History] Ipratropium-Albuterol Nebulize [Duoneb 0.5 mg-3 mg/3 ml Soln] 3 ml INHALATION RT-Q4H PRN 09/13/22 [History] Melatonin 5 mg PO HS PRN 09/13/22 [History] Ascorbic Acid [Vitamin C chew] 500 mg PO DAILY #60 tab 09/18/22 [Rx] Ferrous Sulfate [Feosol] 325 mg PO DAILY #60 tab 09/18/22 [Rx] Follow up Appointment(s)/Referral(s): Saundra Rodriguez MD [STAFF PHYSICIAN] - 10/10/22 11:40 am Bartolome Howe MD [STAFF PHYSICIAN] - 1 Week Doris Ashraf DO [Primary Care Provider] - 1-2 days (Please call for follow-up appointment.) Patient Instructions/Handouts: Acute Kidney Injury (DC) Activity/Diet/Wound Care/Special Instructions: [facility] rehab Straight cath if bladder scan over 400. Please see your PCP and nephrology. You will likely need repeat blood work to assess your kidney function. Discharge Disposition: TRANSFER TO SNF/ECF
[2022-09-19 13:45] VITALS: BMI 27.1
[2022-09-19] MEDS ORDERED: polyethylene glycoL 3350 17 GM POWD.PACK PO STA (13:54)
[2022-09-19 14:29] VITALS: BP 155/66; PULSE 65; TEMP 97.4
== END 2022-09-19 16:21 | DRG 292 ==
LOC: EC 11:46 → 4SSUR 12:10
PROVIDERS: ADMIT Student in an Organized Health Care Education/Training Program; ATTEND Student in an Organized Health Care Education/Training Program
DX: I13.0 Hypertensive heart and chronic kidney disease with heart failure and stage 1 through stage 4 chronic kidney disease, or unspecified chronic kidney disease (principal); I50.22 Chronic systolic (congestive) heart failure; N17.9 Acute kidney failure, unspecified; Z68.1 Body mass index [BMI] 19.9 or less, adult; N18.4 Chronic kidney disease, stage 4 (severe); D63.1 Anemia in chronic kidney disease; N40.1 Benign prostatic hyperplasia with lower urinary tract symptoms; R33.8 Other retention of urine; J44.9 Chronic obstructive pulmonary disease, unspecified; I48.91 Unspecified atrial fibrillation; I44.7 Left bundle-branch block, unspecified; I44.0 Atrioventricular block, first degree; D50.9 Iron deficiency anemia, unspecified; R63.0 Anorexia; E78.5 Hyperlipidemia, unspecified; E87.5 Hyperkalemia; G62.9 Polyneuropathy, unspecified; Z96.1 Presence of intraocular lens; Z79.01 Long term (current) use of anticoagulants; Z79.899 Other long term (current) drug therapy; Z82.49 Family history of ischemic heart disease and other diseases of the circulatory system; Z88.8 Allergy status to other drugs, medicaments and biological substances
CPT/HCPCS: 36415; 51702; 76770; 80048; 80053; 81003; 83540; 83550; 83735; 84100; 85025; 85027; 85610; 93005; 94640; 96360; 96361; 99285

== ENCOUNTER 2023-04-01 21:35 | Inpatient (IN) | payer MEDICARE, BC ==
[2023-04-01 22:22] LABS: Anisocytosis Slight; Basophils % (A) 0 %; Eosinophils # (A) 0.1 k/uL (0-0.7); Eosinophils % (A) 1 %; HGB 10.7 gm/dL (13.0-17.5); Hypochromasia Marked; Lymphocytes # (A) 0.8 k/uL (1.0-4.8); Lymphocytes % (A) 10 %; MCH 31.2 pg (25.0-35.0); MCHC 31.5 g/dL (31.0-37.0); MCV 98.8 fL (80.0-100.0); Macrocytosis Slight; Mean Platelet Volume 9.6; Monocytes # (A) 0.3 k/uL (0-1.0); Monocytes % (A) 3 %; Neutrophils # (A) 7.1 k/uL (1.3-7.7); Neutrophils % (A) 84 %; Platelet Count 121 k/uL (150-450); Poikilocytosis Slight; RBC 3.44 m/uL (4.30-5.90); RDW 17.7 % (11.5-15.5); WBC 8.4 k/uL (3.8-10.6)
--- NOTE | 2023-04-01 22:29 | ED ---
General Adult HPI - General Chief complaint: Shortness of Breath Stated complaint: Renal failure Time Seen by Provider: 04/01/23 21:38 Source: patient, EMS, RN notes reviewed, old records reviewed Mode of arrival: EMS - History of Present Illness Initial comments: Patient is a 87-year-old male. Senting to the emergency department complaining of dyspnea, weakness, sore throat. Symptoms have been ongoing for multiple days. Was transferred from an outside facility. They were concerned for possible anemia but patient has a chronic history of CKD with chronic anemia with hemoglobins ranging anywhere from 8.0-9.5 since August 2022. Workup also significant for OMA on CKD with worsening creatinine as well as hyperkalemia with no EKG changes. Patient was given a hyperkalemia cocktail, transfused 1 unit of blood empirically. Patient is on blood thinners but denies any blood in his stool. Denies melena, dark tarry stools, hematochezia. Denies any emesis or blood in his emesis. Endorses mild nonproductive cough but primary complaint is a sore throat. Has chronic lower extremity edema. Denies any pain anywhere. This includes denying chest pain, abdominal pain. Has no other acute complaints at this time. Does use oxygen as needed at home. Presents for further evaluation. - Related Data Home Medications Medication Instructions Recorded Confirmed Montelukast [Singulair] 10 mg PO DAILY 07/30/15 09/13/22 Tamsulosin HCl [Flomax] 0.4 mg PO DAILY 07/21/17 09/13/22 Apixaban [Eliquis] 2.5 mg PO BID 08/28/22 09/13/22 Lovastatin [Mevacor] 20 mg PO HS 08/28/22 09/13/22 Budesonide 0.5 mg INHALATION RT-BID 09/13/22 09/13/22 Ipratropium-Albuterol Nebulize 3 ml INHALATION RT-Q4H PRN 09/13/22 09/13/22 [Duoneb 0.5 mg-3 mg/3 ml Soln] Melatonin 5 mg PO HS PRN 09/13/22 09/13/22 Previous Rx's Medication Instructions Recorded Acetaminophen Tab [Tylenol] 650 mg PO Q6HR PRN tab 09/02/22 Ascorbic Acid [Vitamin C chew] 500 mg PO DAILY #60 tab 09/18/22 Ferrous Sulfate [Feosol] 325 mg PO DAILY #60 tab 09/18/22 Allergies Allergy/AdvReac Type Severity Reaction Status Date / Time prednisone Allergy Hallucinati Verified 04/01/23 21:47 ons Review of Systems ROS Statement: Those systems with pertinent positive or pertinent negative responses have been documented in the HPI. Review of Systems: CONST: Endorses weakness EYES: Denies blurry vision ENT: Denies nasal congestion C/V: Denies Chest pain RESP: Denies shortness of breath GI: Denies abdominal pain : Denies dysuria SKIN: Denies rash. MSK: Denies joint pain. NEURO: Denies headache ROS Other: All systems not noted in ROS Statement are negative. Past Medical History Past Medical History: Asthma, Heart Failure, COPD, GERD/Reflux, Hyperlipidemia, Prostate Disorder Additional Past Medical History / Comment(s): HYPOTENSION, PAST ANEMIA USED TO TAKE IRON SUPPLEMENTS, SEASONAL ALLERGIES, ENLARGED PROSTATE. GOUT. NEUROPATHY History of Any Multi-Drug Resistant Organisms: None Reported Past Surgical History: Hernia Repair, Orthopedic Surgery Additional Past Surgical History / Comment(s): FOOT SURG(.scraped bones- ancelmo 5th toes), cataracts- lens implants, [facility] HERNIA REPAIR W/MESH Past Anesthesia/Blood Transfusion Reactions: No Reported Reaction Past Psychological History: No Psychological Hx Reported Smoking Status: Never smoker Past Alcohol Use History: Occasional Past Drug Use History: None Reported - Past Family History Brother(s) Family Medical History: Cancer, Coronary Artery Disease (CAD) Mother History Unknown: Yes Family Medical History: No Reported History Additional Family Medical History / Comment(s): " from natural causes" Father Additional Family Medical History / Comment(s): from black lung, was a appeals examiner in [place] General Exam - General Exam Comments Initial Comments: General: Appears in no acute distress. HEAD: Normal with no signs of head trauma. EYES: PERRLA, EOMI, conjunctiva normal, no discharge. ENT: Hearing grossly intact, normal oropharynx. RESPIRATORY: Bilateral end expiratory wheezing. Normoxic on 2 L nasal cannula oxygen which is home oxygen for him. C/V: Regular rate and rhythm. S1 and S2 auscultated, symmetrical bilateral lower extremity pitting edema, peripheral pulses 2+ and intact throughout ABD: Abd is soft, nontender, nondistended EXT: Normal range of motion, no obvious deformity SKIN: No rashes or lesions observed on exposed skin. NEURO: Alert and oriented x 4. Cranial nerves II-XII intact. No focal sensory or strength deficits. Course Vital Signs 04/01/23 04/01/23 04/01/23 21:45 22:55 23:02 Temperature Pulse Rate 70 66 70 Respiratory 17 Rate Blood Pressure 135/71 O2 Sat by Pulse 94 L Oximetry 04/02/23 04/02/23 04/02/23 00:23 00:34 01:34 Temperature 97.1 F L Pulse Rate 68 70 67 Respiratory 18 Rate Blood Pressure 124/61 O2 Sat by Pulse 97 Oximetry 04/02/23 02:55 Temperature Pulse Rate 62 Respiratory 12 Rate Blood Pressure 124/61 O2 Sat by Pulse 96 Oximetry Medical Decision Making - Medical Decision Making Was pt. sent in by a medical professional or institution (, PA, PHOTOGRAPHY INSTRUCTOR, urgent care, hospital, or [place] health care facility...) When possible be specific @ -Transferred from [facility] for evaluation by nephrology. Did you speak to anyone other than the patient for history (EMS, parent, family, police, friend...)? What history was obtained from this source @ -No Did you review nursing and triage notes (agree or disagree)? Why? @ -I reviewed and agree with nursing and triage notes Were old charts reviewed (outside hosp., previous admission, EMS record, old EKG, old radiological studies, urgent care reports/EKG's, [place] health care facility records)? Report findings @ -Old charts reviewed Differential Diagnosis (chest pain, altered mental status, abdominal pain women, abdominal pain men, vaginal bleeding, weakness, fever, dyspnea, syncope, headache, dizziness, GI bleed, back pain, seizure, CVA, palpatations, mental hea lth, musculoskeletal)? @ -Differential Weakness: Hypoglycemia, shock, sepsis, hyponatremia, anemia, infection, OK, ETOH, adverse medicine reaction, overdose, stroke, this is not meant to be an all-inclusive list. EKG interpreted by me (3pts min.). @ -As above X-rays interpreted by me (1pt min.). @ -Chest x-ray reveals pulmonary vascular congestion with bilateral pleural effusions, left worse than right. CT interpreted by me (1pt min.). @ -None done U/S interpreted by me (1pt. min.). @ -None done What testing was considered but not performed or refused? (CT, X-rays, U/S, labs)? Why? @ -None What meds were considered but not given or refused? Why? @ -None Did you discuss the management of the patient with other professionals (professionals i.e. , PA, PHOTOGRAPHY INSTRUCTOR, lab, RT, psych nurse, clinical social worker, machine stone polisher apprentice, teacher, court collections officer, porter sample case)? Give summary @ -I spoke with Dr. Armas of nephrology who was in agreement with plan for hyperkalemia cocktail but recommended a total of 3 A of bicarbonate as well as starting the patient on a bicarb drip at 50 cc an hour. Was in agreement the plan with Riley catheter placement as well as initiating IV Lasix administration. Otherwise was in agreement with the plan. Recommended repeat lab draw in 3 to 4 hours. Would Like to be contacted if potassium continues to be elevated over 6. I spoke with the admitting team, CONCHA Morris of [facility] who accepted the admission. Was smoking cessation discussed for >3mins.? @ -No Was critical care preformed (if so, how long)? @ -yes, 38 min Were there social determinants of health that impacted care today? How? (Homelessness, low income, unemployed, alcoholism, drug addiction, transportation, low edu. Level, literacy, decrease access to med. care, fpc, rehab)? @ -No Was there de-escalation of care discussed even if they declined (Discuss DNR or withdrawal of care, Hospice)? DNR status @ -No What co-morbidities impacted this encounter? (DM, HTN, Smoking, COPD, CAD, Cancer, CVA, ARF, Chemo, Hep., AIDS, mental health diagnosis, sleep apnea, morbid obesity)? @ -Chronic hypoxic respiratory failure on 2 L nasal cannula, COPD, CHF, CKD Was patient admitted / discharged? Hospital course, mention meds given and route, prescriptions, significant lab abnormalities, going to OR and other pertinent info. @ -Based on the patient's presentation and physical exam, patient presents as a transfer for multiple complaints. Patient was empirically transfused a unit of packed red blood cells at [place] however patient is chronically anemic with worsening in kidney function. No evidence of GI bleeding at this time. I am concerned as the patient has lower extremity edema, worsening left-sided pleural effusion, as well as worsening kidney functions based on their labs with hyperkalemia for possible worsening of his CKD. Therefore we will repeat laboratory studies. Patient will finish receiving the unit of blood that is currently hanging. Chest x-ray upon arrival shows the pleural effusions as well as the pulmonary vascular congestion. Will hold off additional fluids at this time. Will repeat labs. Repeat EKG. Patient in agreement with this plan. Currently resting comfortably with vital signs within acceptable limits. EKG shows chronic left bundle branch block but no obvious acute cardiac process. Chest x-ray shows the bilateral pleural effusions, left worse than right as well as pulmonary vascular congestion. Patient's laboratory studies remarkable for now hemoglobin of 10.7 likely secondary to transfusion, hyperkalemia of 8.4, elevated BUN of 74 and creatinine of 3.68 with most recent baseline likely around 2-3 based on our system. Since she is somewhat improved from outside hospital. Lactic acid is elevated 3.8 as well. BNP is elevated to 57,000. Hyperkalemia cocktail was ordered which includes breathing treatment, insulin, bicarb amp, Lokelma. I spoke with nephrology Dr. Armas who was in agreement with this plan as well as requested 2 additional bicarb amps as well as start the patient on a bicarb drip at 50 cc an hour. Bladder scan was completed which revealed patient retaining over half a liter of urine. Riley catheter was placed in half a liter was removed. Recommended 60 mg of IV Lasix as well. Will repeat potassium in approximately 3 hours. Patient and patient's family in agreement this plan. Ultrasound of the kidneys and bladder will also be obtained. Patient remains hemodynamically stable at this time. I spoke with the admitting team, CONCHA Morris of [facility] who accepted the admission. Repeat lactic acid was 1.6. Patient's potassium also improved and is currently 5.6. Patient did have an episode of hypoglycemia following insulin administration for the hyperkalemia cocktail. This resolved following D50 amps. We will continue to monitor. Patient remains hemodynamically stable. Dr. Armas notified of the new potassium level. Undiagnosed new problem with uncertain prognosis? @ -No Drug Therapy requiring intensive monitoring for toxicity (Heparin, Nitro, Insulin, Cardizem)? @ -No Were any procedures done? @ -No Diagnosis/symptom? @ -Hyperkalemia, OMA on CKD, volume overload, urinary retention, acidosis, pleural effusion, pulmonary vascular congestion Acute, or Chronic, or Acute on Chronic? @ -Acute Uncomplicated (without systemic symptoms) or Complicated (systemic symptoms)? @ -Complicated Side effects of treatment? @ -None Exacerbation, Progression, or Severe Exacerbation] @ -No Poses a threat to life or bodily function? @ -Yes - Lab Data Result diagrams: 04/01/23 21:51 04/02/23 01:50 Lab Results 04/01/23 04/01/23 04/01/23 Range/Units 21:51 21:51 21:51 WBC 8.4 (3.8-10.6) k/uL RBC 3.44 L (4.30-5.90) m/uL Hgb 10.7 L (13.0-17.5) gm/dL Hct 34.0 L (39.0-53.0) % MCV 98.8 (80.0-100.0) fL MCH 31.2 (25.0-35.0) pg MCHC 31.5 (31.0-37.0) g/dL RDW 17.7 H (11.5-15.5) % Plt Count 121 L (150-450) k/uL MPV 9.6 Neutrophils % 84 % Lymphocytes % 10 % Monocytes % 3 % Eosinophils % 1 % Basophils % 0 % Neutrophils # 7.1 (1.3-7.7) k/uL Lymphocytes # 0.8 L (1.0-4.8) k/uL Monocytes # 0.3 (0-1.0) k/uL Eosinophils # 0.1 (0-0.7) k/uL Basophils # 0.0 (0-0.2) k/uL Hypochromasia Marked Poikilocytosis Slight Anisocytosis Slight Macrocytosis Slight PT 12.3 (10.0-12.5) sec INR 1.2 H (<1.2) APTT 33.1 H (22.0-30.0) sec Sodium (137-145) mmol/L Potassium (3.5-5.1) mmol/L Chloride (98-107) mmol/L Carbon Dioxide (22-30) mmol/L Anion Gap mmol/L BUN (9-20) mg/dL Creatinine (0.66-1.25) mg/dL Est GFR (CKD-EPI)AfAm (>60 ml/min/1.73 sqM) Est GFR (CKD-EPI)NonAf (>60 ml/min/1.73 sqM) Glucose (74-99) mg/dL Lactic Ac Sepsis Rflx Plasma Lactic Acid Natan (0.7-2.0) mmol/L Calcium (8.4-10.2) mg/dL Magnesium (1.6-2.3) mg/dL Total Bilirubin (0.2-1.3) mg/dL AST (17-59) U/L ALT (4-49) U/L Alkaline Phosphatase (38-126) U/L Troponin I (0.000-0.034) ng/mL NT-Pro-B Natriuret Pep pg/mL Total Protein (6.3-8.2) g/dL Albumin (3.5-5.0) g/dL Urine Color Light Yellow Urine Appearance Clear (Clear) Urine pH 5.5 (5.0-8.0) Ur Specific [place] 1.013 (1.001-1.035) Urine Protein Trace H (Negative) Urine Glucose (UA) Negative (Negative) Urine Ketones Negative (Negative) Urine Blood Negative (Negative) Urine Nitrite Negative (Negative) Urine Bilirubin Negative (Negative) Urine Urobilinogen <2.0 (<2.0) mg/dL Ur Leukocyte Esterase Negative (Negative) Group A Strep (PCR) (Not Detectd) 04/01/23 04/01/23 04/01/23 Range/Units 21:51 21:51 21:51 WBC (3.8-10.6) k/uL RBC (4.30-5.90) m/uL Hgb (13.0-17.5) gm/dL Hct (39.0-53.0) % MCV (80.0-100.0) fL MCH (25.0-35.0) pg MCHC (31.0-37.0) g/dL RDW (11.5-15.5) % Plt Count (150-450) k/uL MPV Neutrophils % % Lymphocytes % % Monocytes % % Eosinophils % % Basophils % % Neutrophils # (1.3-7.7) k/uL Lymphocytes # (1.0-4.8) k/uL Monocytes # (0-1.0) k/uL Eosinophils # (0-0.7) k/uL Basophils # (0-0.2) k/uL Hypochromasia Poikilocytosis Anisocytosis Macrocytosis PT (10.0-12.5) sec INR (<1.2) APTT (22.0-30.0) sec Sodium 138 (137-145) mmol/L Potassium 8.4 H* (3.5-5.1) mmol/L Chloride 108 H (98-107) mmol/L Carbon Dioxide 18 L (22-30) mmol/L Anion Gap 12 mmol/L BUN 74 H (9-20) mg/dL Creatinine 3.68 H (0.66-1.25) mg/dL Est GFR (CKD-EPI)AfAm 16 (>60 ml/min/1.73 sqM) Est GFR (CKD-EPI)NonAf 14 (>60 ml/min/1.73 sqM) Glucose 85 (74-99) mg/dL Lactic Ac Sepsis Rflx Plasma Lactic Acid Natan 3.8 H* (0.7-2.0) mmol/L Calcium 9.0 (8.4-10.2) mg/dL Magnesium 2.3 (1.6-2.3) mg/dL Total Bilirubin 0.6 (0.2-1.3) mg/dL AST 21 (17-59) U/L ALT 20 (4-49) U/L Alkaline Phosphatase 88 (38-126) U/L Troponin I <0.012 (0.000-0.034) ng/mL NT-Pro-B Natriuret Pep 43585 pg/mL Total Protein 6.6 (6.3-8.2) g/dL Albumin 3.4 L (3.5-5.0) g/dL Urine Color Urine Appearance (Clear) Urine pH (5.0-8.0) Ur Specific [place] (1.001-1.035) Urine Protein (Negative) Urine Glucose (UA) (Negative) Urine Ketones (Negative) Urine Blood (Negative) Urine Nitrite (Negative) Urine Bilirubin (Negative) Urine Urobilinogen (<2.0) mg/dL Ur Leukocyte Esterase (Negative) Group A Strep (PCR) (Not Detectd) 02/14/24 02/14/24 Range/Units 21:51 22:43 WBC (3.8-10.6) k/uL RBC (4.30-5.90) m/uL Hgb (13.0-17.5) gm/dL Hct (39.0-53.0) % MCV (80.0-100.0) fL MCH (25.0-35.0) pg MCHC (31.0-37.0) g/dL RDW (11.5-15.5) % Plt Count (150-450) k/uL MPV Neutrophils % % Lymphocytes % % Monocytes % % Eosinophils % % Basophils % % Neutrophils # (1.3-7.7) k/uL Lymphocytes # (1.0-4.8) k/uL Monocytes # (0-1.0) k/uL Eosinophils # (0-0.7) k/uL Basophils # (0-0.2) k/uL Hypochromasia Poikilocytosis Anisocytosis Macrocytosis PT (10.0-12.5) sec INR (<1.2) APTT (22.0-30.0) sec Sodium (137-145) mmol/L Potassium (3.5-5.1) mmol/L Chloride (98-107) mmol/L Carbon Dioxide (22-30) mmol/L Anion Gap mmol/L BUN (9-20) mg/dL Creatinine (0.66-1.25) mg/dL Est GFR (CKD-EPI)AfAm (>60 ml/min/1.73 sqM) Est GFR (CKD-EPI)NonAf (>60 ml/min/1.73 sqM) Glucose (74-99) mg/dL Lactic Ac Sepsis Rflx Y Plasma Lactic Acid Natan (0.7-2.0) mmol/L Calcium (8.4-10.2) mg/dL Magnesium (1.6-2.3) mg/dL Total Bilirubin (0.2-1.3) mg/dL AST (17-59) U/L ALT (4-49) U/L Alkaline Phosphatase (38-126) U/L Troponin I (0.000-0.034) ng/mL NT-Pro-B Natriuret Pep pg/mL Total Protein (6.3-8.2) g/dL Albumin (3.5-5.0) g/dL Urine Color Urine Appearance (Clear) Urine pH (5.0-8.0) Ur Specific [place] (1.001-1.035) Urine Protein (Negative) Urine Glucose (UA) (Negative) Urine Ketones (Negative) Urine Blood (Negative) Urine Nitrite (Negative) Urine Bilirubin (Negative) Urine Urobilinogen (<2.0) mg/dL Ur Leukocyte Esterase (Negative) Group A Strep (PCR) NOT DETECTED (Not Detectd) - EKG Data -: EKG Interpreted by Me EKG Comments: 12-lead Electrocardiogram Interpretation Note EKG was reviewed and interpreted by myself. 12-lead ECG performed at 2152 is interpreted by me as revealing normal sinus rhythm with chronic left bundle branch block at a rate of 70 beats per minute. [place] is normal. QRS duration is 179 ms, QTc is 477 ms.. There were no ST or T wave abnormalities to suggest myocardial ischemia or injury. R wave progression across the precordium was satisfactory. By my interpretation this EKG is non-diagnostic for acute ischemia. Chronic findings including left bundle branch block present.. Critical Care Time Critical Care Time: Yes Total Critical Care Time: 38 Disposition Clinical Impression: Hyperkalemia, Acute kidney injury superimposed on CKD, Urinary retention, Pleural effusion, Pulmonary vascular congestion, Volume overload, Chronic anemia, Acidosis Disposition: ADMITTED IP TO THIS [facility] Condition: Serious Time of Disposition: 00:01
[2023-04-01 22:34] LABS: ALT 20 U/L (4-49); AST 21 U/L (17-59); African American GFR (CKD) 16 (>60 ml/min/1.73 sqM); Albumin 3.4 g/dL (3.5-5.0); Alkaline Phosphatase 88 U/L (38-126); Anion Gap 12 mmol/L; Blood Urea Nitrogen 74 mg/dL (9-20); Carbon Dioxide 18 mmol/L (22-30); Chloride 108 mmol/L (98-107); Glucose 85 mg/dL (74-99); INR 1.2 (<1.2); Magnesium 2.3 mg/dL (1.6-2.3); Non-African American GFR(CKD) 14 (>60 ml/min/1.73 sqM); Partial Thromboplastin Time 33.1 sec (22.0-30.0); Prothrombin Time 12.3 sec (10.0-12.5); Sodium 138 mmol/L (137-145); Total Bilirubin 0.6 mg/dL (0.2-1.3); Total Protein 6.6 g/dL (6.3-8.2)
--- NOTE | 2023-04-01 22:38 | XR ---
EXAM: XR Chest, 1 View CLINICAL HISTORY: ITS.REASON XR Reason: Weakness TECHNIQUE: Frontal view of the chest. COMPARISON: 08/28/22 FINDINGS/IMPRESSION: Cardiomegaly, pulmonary vascular congestion, and diffuse interstitial opacities concerning for pulmonary edema. Small right and moderate left pleural effusion. Left basilar airspace disease, atelectasis or pneumonia. Thoracic aorta is calcified. No acute osseous findings.
[2023-04-01 22:43] LABS: Potassium 8.4 mmol/L (3.5-5.1)
[2023-04-01] MEDS: IPRATROPIUM-ALBUTEROL 3 ML NEB INHALATION STA (22:52)
[2023-04-01 23:04] LABS: NT-Pro-B-Type Natriuretic Pept 57800 pg/mL
[2023-04-01] MEDS: DEXTROSE 50% SYRINGE 50 ML IVP ONE (23:10)
[2023-04-01] MEDS: INSULIN REGULAR 100 UNIT/ML VIAL (IV) IV ONE (23:13)
[2023-04-01] MEDS: SODIUM BICARB 8.4% 50 ML SYR (1 MEQ/ML) IV ONE (23:15)
[2023-04-01] MEDS: CALCIUM GLUCONATE IN NACL 1 GM in SALINE 1 100ML.BAG IVPB ONE (23:27)
[2023-04-01] MEDS: SODIUM BICARB 8.4% 50 ML SYR (1 MEQ/ML) IV STA ×2 (23:28→23:29)
[2023-04-01] MEDS: FUROSEMIDE 10 MG/ML 10 ML VIAL IV STA (23:31)
[2023-04-01] MEDS: SODIUM ZIRCONIUM CYCLOSILICATE 10 GM PACKET PO ONE (23:54)
[2023-04-02 00:05] LABS: Appearance,Urine Clear (Clear); Bilirubin,Urine Negative (Negative); Blood,Urine Negative (Negative); Color,Urine Light Yellow; Glucose,Urine (UA) Negative (Negative); Ketones,Urine Negative (Negative); Leukocyte Esterase,Urine Negative (Negative); Nitrite,Urine Negative (Negative); PH, Urine 5.5 (5.0-8.0); Protein,Urine Trace (Negative); Specific Gravity,Urine 1.013 (1.001-1.035); Urobilinogen,Urine <2.0 mg/dL (<2.0)
[2023-04-02] MEDS ORDERED: NALOXONE 0.4 MG/ML 1 ML VIAL IV PRN (00:08)
[2023-04-02] MEDS: ALBUTEROL NEB (CONC) 2.5 MG/0.5 ML INHALATION ONE (00:23)
--- NOTE | 2023-04-02 00:45 | US ---
EXAM: US Retroperitoneal Limited, Renal CLINICAL HISTORY: ITS.REASON US Reason: urinary retention TECHNIQUE: Real-time limited ultrasound of the retroperitoneum with image documentation. COMPARISON: 09/15/22 FINDINGS: Right kidney: Right kidney measures 13.5 cm. Increased parenchymal echogenicity. No hydronephrosis. No stones. Left kidney: Left kidney measures 12.4 cm. Increased parenchymal echogenicity. No hydronephrosis. No stones. Bladder: Riley catheter in the urinary bladder. Ureteral jets not visualized at the time of exam. Pleural space: Bilateral pleural effusions. IMPRESSION: 1. Echogenic kidney suggesting medical renal disease. No hydronephrosis. 2. Bilateral pleural effusions.
[2023-04-02 01:17] LABS: Glucose,Whole Blood 28 mg/dL (70-110)
[2023-04-02] MEDS: DEXTROSE 50% SYRINGE 50 ML IVP STA ×3 (01:25→07:46)
[2023-04-02] MEDS: DEXTROSE 5% IN WATER 1,000 ML with SODIUM BICARB (1 MEQ/ML) 150 ML IV SCH (01:26)
[2023-04-02 01:44] LABS: Glucose,Whole Blood 173 mg/dL (70-110)
[2023-04-02 02:08] LABS: Glucose,Whole Blood 144 mg/dL (70-110)
[2023-04-02 03:26] LABS: Glucose,Whole Blood 104 mg/dL (70-110)
[2023-04-02 04:54] LABS: Glucose,Whole Blood 118 mg/dL (70-110)
[2023-04-02 06:17] LABS: Glucose,Whole Blood 133 mg/dL (70-110)
--- NOTE | 2023-04-02 06:34 | P.CNPUL ---
History of Present Illness Consult date: 04/02/23 Requesting physician: Dandre Seth Reason for consult: other (Left-sided pleural effusion) Chief complaint: Shortness of breath and weakness History of present illness: I am seeing this patient in consultation today 04/02/2023 for dyspnea and left- sided pleural effusion. He is currently in the emergency room. He was transferred from [facility] late last night for severe hyperkalemia and acute kidney injury. Patient is a 87-year-old white male with past medical history significant for chronic kidney disease, congestive heart failure, atrial fibrillation anticoagulated on Eliquis, hyperlipidemia, COPD, and BPH. Patient is technically a poor historian. Apparently, he is complaining of shortness of breath, weakness and sore throat over the last several days. This pro gressively worsened, and he went into [facility] to be evaluated. Patient was found to be severely hyperkalemic. He was also found to be anemic and was transfused 1 unit PRBC. He was transferred to [facility]. Patient is currently resting in bed, on 2 L/min nasal cannula, in no acute distress. He is weak and cannot sit up in bed without assistance. Becomes short of breath with any kind of activity. He denies any chest pain, heart palpitations, or syncopal events. He does have bilateral lower extremity swelling. He has an occasional nonproductive cough. Denies any sputum production, fevers. Chest x-ray on arrival shows cardiomegaly, pulmonary vascular congestion, and interstitial edema. There is a moderate to large left- sided pleural effusion and small right pleural effusion.. Patient was given 60 mg of IV Lasix. A Riley catheter was inserted, and the patient has approximately 800 mL of concentrated urine. Patient states that earlier in the week he has had troubles urinating. He voids about 2-3 times per day. Endorses dysuria. Denies any hematuria, urinary frequency. Urinalysis on arrival not concerning for UTI. Trace protein. He does have baseline chronic kidney disease. Ultrasound of the abdomen and bladder did not show any hydronephrosis. Potassium level on arrival was elevated at 8.4 and is down to 5 point 3:06 amp sodium bicarb, 10 g Lokelma, 10 units insulin, 2 A D50 W, calcium gluconate, and the above-mentioned Lasix. Nephrology has been consulted. There is D5W with 3 amp sodium bicarb infusing at 50 MLS per hour. BMP on arrival has a sodium 138, testing 8.4, chloride 108, serum bicarb 18, BUN 74, creatinine 3.68, and glucose 85. Lactic acid level was 3.8 on arrival and is down to 1.6. Troponin less than 0.012. NT proBNP 57,800. ECG shows normal sinus rhythm with chronic left bundle branch block without any obvious hyperkalemic changes. CBC on arrival: WBC count 8.4, hemoglobin 10.7, hematocrit 34, platelets 121. Group A strep negative. No signs of bleeding. Patient has chronic anemia. Patient denies any acute blood loss. No bloody bowel movements, melena, hematemesis. No abdominal pain or diarrhea. Vital signs are stable. . Review of Systems REVIEW OF SYSTEMS: CONSTITUTIONAL: Denies any recent significant weight loss or weight gain. Admits generalized weakness, fatigue and malaise. Denies any fevers. EYES: Denies change in vision. EARS, NOSE, MOUTH, THROAT: Denies headaches, admits sore throat. CARDIOVASCULAR: Denies chest pain, palpitations or syncopal episodes. RESPIRATORY: See HPI GASTROINTESTINAL: Denies change in appetite, abdominal pain, nausea and vomit ing, or diarrhea GENITOURINARY: Denies hematuria, denies infections. MUSKULOSKELETAL: Denies pain, denies swelling. INTEGUMENTARY: Denies rash, denies eczema. NEUROLOGICAL: Denies recent memory loss, no recent seizure activity. PSYCHIATRIC: Denies anxiety, denies depression. HEMATOLOGIC/LYMPHATIC: Admits chronic anemia. denies enlarged lymph node Past Medical History Past Medical History: Asthma, Heart Failure, COPD, GERD/Reflux, Hyperlipidemia, Prostate Disorder Additional Past Medical History / Comment(s): HYPOTENSION, PAST ANEMIA USED TO TAKE IRON SUPPLEMENTS, SEASONAL ALLERGIES, ENLARGED PROSTATE. GOUT. NEUROPATHY History of Any Multi-Drug Resistant Organisms: None Reported Past Surgical History: Hernia Repair, Orthopedic Surgery Additional Past Surgical History / Comment(s): FOOT SURG(.scraped bones- ancelmo 5th toes), cataracts- lens implants, [facility] HERNIA REPAIR W/MESH Past Anesthesia/Blood Transfusion Reactions: No Reported Reaction Past Psychological History: No Psychological Hx Reported Smoking Status: Never smoker Past Alcohol Use History: Occasional Past Drug Use History: None Reported - Past Family History Brother(s) Family Medical History: Cancer, Coronary Artery Disease (CAD) Mother History Unknown: Yes Family Medical History: No Reported History Additional Family Medical History / Comment(s): " from natural causes" Father Additional Family Medical History / Comment(s): from black lung, 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 [place] Medications and Allergies Home Medications Medication Instructions Recorded Confirmed Type Montelukast [Singulair] 10 mg PO DAILY 07/30/15 09/13/22 History Tamsulosin HCl [Flomax] 0.4 mg PO DAILY 07/21/17 09/13/22 History Apixaban [Eliquis] 2.5 mg PO BID 08/28/22 09/13/22 History Lovastatin [Mevacor] 20 mg PO HS 08/28/22 09/13/22 History Acetaminophen Tab [Tylenol] 650 mg PO Q6HR PRN tab 09/02/22 09/13/22 Rx Budesonide 0.5 mg INHALATION RT-BID 09/13/22 09/13/22 History Ipratropium-Albuterol Nebulize 3 ml INHALATION RT-Q4H PRN 09/13/22 09/13/22 History [Duoneb 0.5 mg-3 mg/3 ml Soln] Melatonin 5 mg PO HS PRN 09/13/22 09/13/22 History Ascorbic Acid [Vitamin C chew] 500 mg PO DAILY #60 tab 09/18/22 Rx Ferrous Sulfate [Feosol] 325 mg PO DAILY #60 tab 09/18/22 Rx Allergies Allergy/AdvReac Type Severity Reaction Status Date / Time prednisone Allergy Hallucinati Verified 04/01/23 21:47 ons Physical Exam Vitals: Vital Signs Temp Pulse Resp BP Pulse Ox 04/02/23 03:30 64 13 127/64 97 04/02/23 03:00 61 12 127/63 97 04/02/23 02:55 62 12 124/61 96 04/02/23 01:34 97.1 F L 67 18 124/61 97 04/02/23 00:34 70 04/02/23 00:23 68 04/01/23 23:02 70 04/01/23 22:55 66 04/01/23 21:45 70 17 135/71 94 L Intake and Output 04/01/23 04/01/23 04/02/23 14:59 22:59 06:59 Output Total 1258 Balance -1258 Output: Urine 700 Uretheral (Riley) 700 Post Void Residual 558 Other: Weight 79.379 kg GENERAL EXAM: Alert, 87-year-old white male, generally weak and fatigued, comfortable in no apparent distress. HEAD: Normocephalic and atraumatic EYES: Normal reaction of pupils, equal size. NOSE: Clear with pink turbinates. THROAT: Mild erythema, no exudates NECK: No masses, no JVD. CHEST: No chest wall deformity. LUNGS: Equal air entry with right basilar inspiratory crackles and diminished left basilar lung sounds. On 2 L/min nasal cannula. No conversational dyspnea or accessory muscle use at rest.. CVS: S1 and S2 normal with no audible murmur, regular rhythm. No extra heart sounds ABDOMEN: No hepatosplenomegaly, active bowel sounds, no guarding or rigidity. SPINE: No scoliosis or deformity SKIN: No rashes CENTRAL NERVOUS SYSTEM: No focal deficits, tone is normal in all 4 extremities. EXTREMITIES: There is moderate bilateral lower extremity nonpitting edema. No clubbing, or cyanosis. Peripheral pulses are intact. Results - Laboratory Findings CBC and BMP: 04/01/23 21:51 04/02/23 01:50 PT/INR, D-dimer PT 12.3 sec (10.0-12.5) 04/01/23 21:51 INR 1.2 (<1.2) H 04/01/23 21:51 Abnormal lab findings: Abnormal Labs 04/01/23 04/01/23 04/01/23 21:51 21:51 21:51 RBC 3.44 L Hgb 10.7 L Hct 34.0 L RDW 17.7 H Plt Count 121 L Lymphocytes # 0.8 L INR 1.2 H APTT 33.1 H Potassium Chloride Carbon Dioxide BUN Creatinine POC Glucose (mg/dL) Plasma Lactic Acid Natan Albumin Urine Protein Trace H 04/01/23 04/01/23 04/02/23 21:51 21:51 01:13 RBC Hgb Hct RDW Plt Count Lymphocytes # INR APTT Potassium 8.4 H* Chloride 108 H Carbon Dioxide 18 L BUN 74 H Creatinine 3.68 H POC Glucose (mg/dL) 28 L Plasma Lactic Acid Natan 3.8 H* Albumin 3.4 L Urine Protein 04/02/23 04/02/23 04/02/23 01:42 01:50 02:07 RBC Hgb Hct RDW Plt Count Lymphocytes # INR APTT Potassium 5.6 H Chloride Carbon Dioxide BUN Creatinine POC Glucose (mg/dL) 173 H 144 H Plasma Lactic Acid Natan Albumin Urine Protein 04/02/23 04:52 RBC Hgb Hct RDW Plt Count Lymphocytes # INR APTT Potassium Chloride Carbon Dioxide BUN Creatinine POC Glucose (mg/dL) 118 H Plasma Lactic Acid Natan Albumin Urine Protein - Diagnostic Findings Chest x-ray: image reviewed Assessment and Plan Assessment: Acute hypoxemic respiratory failure, secondary to acute systolic CHF exacerbation and fluid overload. Chest x-ray shows cardiomegaly, pulmonary vascular congestion, and interstitial edema. Patient also has moderate to large left-sided pleural effusion and a small right pleural effusion. NT proBNP was elevated at 57,800. Acute on chronic kidney disease Severe hyperkalemia, improving Lactic acidosis, improved Chronic obstructive pulmonary disease, stable History of paroxysmal atrial fibrillation, anticoagulated on Eliquis, currently normal sinus Benign prostatic hyperplasia Anemia of chronic disease, patient reportedly received 1 unit PRBC at [facility] Plan: Patient's medications, labs, chest x-ray reviewed Continue supplemental oxygen, currently on 2 L/min nasal cannula. Obtain chest ultrasound for possible thoracentesis. Hyperkalemia is improving. No hyperkalemic ECG changes or bradycardia. Received Lasix 60 mg in the ER. Patient is diuresing well and has an indewelling catheter for accurate intake/output. Nephrology has been consulted. Continue maintenance budesenide and Duo-neb inhalations as needed. Will continue to follow, and further recommendations are forthcoming I have personally seen and examined the patient, performed the documentation and the assessment and plan as written. Number of minutes spent on the visit:20 Time with Patient: Greater than 30
[2023-04-02 06:37] LABS: African American GFR (CKD) 16 (>60 ml/min/1.73 sqM); Anion Gap 10 mmol/L; Blood Urea Nitrogen 89 mg/dL (9-20); Calcium 9.4 mg/dL (8.4-10.2); Carbon Dioxide 24 mmol/L (22-30); Chloride 104 mmol/L (98-107); Glucose 121 mg/dL (74-99); Non-African American GFR(CKD) 14 (>60 ml/min/1.73 sqM); Sodium 138 mmol/L (137-145)
[2023-04-02 07:45] LABS: Glucose,Whole Blood 158 mg/dL (70-110)
[2023-04-02] MEDS: INSULIN REGULAR 100 UNIT/ML VIAL (IV) IV ONE (07:50)
[2023-04-02] MEDS: FUROSEMIDE 10 MG/ML 4 ML VIAL IV STA (07:51)
[2023-04-02] MEDS: CALCIUM GLUCONATE IN NACL 1 GM in SALINE 1 100ML.BAG IVPB ONE (07:58)
[2023-04-02] MEDS: SODIUM ZIRCONIUM CYCLOSILICATE 10 GM PACKET PO ONE ×3 (08:00→21:14)
[2023-04-02] MEDS: IPRATROPIUM-ALBUTEROL 3 ML NEB INHALATION PRN (08:16)
[2023-04-02] MEDS: BUDESONIDE 0.5 MG/2 ML NEBU INHALATION SCH (08:16)
--- NOTE | 2023-04-02 08:48 | US ---
EXAMINATION TYPE: US chest DATE OF EXAM: 04/02/2023 COMPARISON: XR 04/01/2023 CLINICAL INDICATION: Male, 87 years old with history of left pleural effusion; Left pleural effusion TECHNIQUE: Targeted ultrasound of the posterior lower left hemithorax EXAM MEASUREMENTS: Left Pleural Effusion pocket size: 8.3 cm Left skin surface to fluid distance: 3.3 cm Left side marked for possible thoracentesis outside the dept. Pulmonologists are able to review the images in the patient?s EMR. IMPRESSIONS: Left pleural effusion marked for thoracentesis.
[2023-04-02] MEDS ORDERED: APIXABAN 5 MG TAB PO SCH (09:00)
[2023-04-02 09:52] LABS: Glucose,Whole Blood 160 mg/dL (70-110)
--- NOTE | 2023-04-02 09:57 | P.CRDCN ---
History of Present Illness Consult date: 04/02/23 Consult reason: congestive heart failure History of present illness: History of present illness: This is an 87-year-old male patient of Dr. Rhodes with past medical history of permanent atrial fibrillation, hypertension, dyslipidemia, chronic systolic heart failure, valvular heart disease, chronic kidney disease, chronic anemia. We have been asked to evaluate the patient for CHF. Patient states he has had sudden onset of shortness of breath since Thursday slowly worsening. He states he is taking all of his medications as directed. He is seen today in the emergency center waiting for bed on the cardiac stepdown unit. He states he continues to have some shortness of breath and dry mouth. Patient has has had multiple medication administrations for hyperkalemia managed by nephrology. He is status post IV Lasix 60 mg times once followed by 40 mg times once. Pulmonary medicine following and planning for possible thoracentesis. EKG atrial fibrillation with left bundle branch block Chest x-ray: Cardiomegaly, pulmonary vascular congestion, diffuse interstitial opacities concerning for pulmonary edema. Small right and moderate left lateral effusion. Left basilar airspace disease atelectasis or pneumonia. Chest ultrasound revealed left pleural effusion 8.3 cm pocket. WBC 8.4, hemoglobin 10.7, platelet count 121. INR 1.2. Sodium 138. Initial potassium 8.4 followed by 5.6 and 6.2. BUN 89 creatinine 3.67. Blood sugar 121. Initial lactic acid 3.8 followed by 1.6. Troponin negative x 1. proBNP 57,800. Liver function test within normal limits. Magnesium 2.3. Urinalysis negative for infection. Group A strep not detected. Home cardiac medications: Amlodipine 5 mg daily, Eliquis 2.5 mg twice daily, Lasix 20 mg daily, hydralazine 25 mg twice daily, lovastatin 20 mg at bedtime. Echocardiogram performed on 08/29/2022 revealed EF of 45%, mild to moderate mitral regurgitation. Review Of Systems: At the time of my exam: CONSTITUTIONAL: Denies fever or chills. HEENT: Denies blurred vision, vision changes, or eye pain. Denies hemoptysis CARDIOVASCULAR: Denies chest pain. Denies orthopnea. Denies PND. Denies palpitat ions. Reports lower extremity edema. RESPIRATORY: Reports shortness of breath. GASTROINTESTINAL: Denies abdominal pain. Denies nausea or vomiting. HEMATOLOGIC: Denies bleeding disorders. GENITOURINARY: Denies any blood in urine. SKIN: Denies pruitis. Denies rash. Physical examination: Gen: This is an 87-year-old male in no acute distress VS: reviewed HEENT: Head is atraumatic, normocephalic. Pupils equal, round. Sclerae is anicteric. NECK: Supple. No JVD. LUNGS: Diminished breath sounds. No intercostal retractions. HEART: Regular rate and rhythm. Systolic murmur at the right and left upper sternal border.. ABDOMEN: Soft No tenderness. EXTREMITIES: 1+ pedal edema. No calf tenderness. NEUROLOGICAL: Patient is awake, alert and oriented x3. Assessment: Acute on chronic systolic heart failure Pleural effusion Acute kidney injury and chronic kidney disease Severe hyperkalemia Permanent atrial fibrillation on Eliquis Hypertension Dyslipidemia Valvular heart disease with mild to moderate mitral regurgitation Chronic anemia Plan: Resume patient's home cardiac medications Start patient on IV Lasix 40 mg every 8 hours Monitor OTTONIEL, daily weights, electrolytes and renal function Hold Eliquis until thoracentesis has been completed Obtain 2-D echocardiogram and Doppler study to assess cardiac structure and function Further recommendations to follow based upon clinical course Thank you kindly for this consultation. Nurse practitioner note has been reviewed, I agree with documented findings and plan of care. Patient was seen and examined. Past Medical History Past Medical History: Asthma, Heart Failure, COPD, GERD/Reflux, Hyperlipidemia, Prostate Disorder Additional Past Medical History / Comment(s): HYPOTENSION, PAST ANEMIA USED TO TAKE IRON SUPPLEMENTS, SEASONAL ALLERGIES, ENLARGED PROSTATE. GOUT. NEUROPATHY History of Any Multi-Drug Resistant Organisms: None Reported Past Surgical History: Hernia Repair, Orthopedic Surgery Additional Past Surgical History / Comment(s): FOOT SURG(.scraped bones- ancelmo 5th toes), cataracts- lens implants, [facility] HERNIA REPAIR W/MESH Past Anesthesia/Blood Transfusion Reactions: No Reported Reaction Past Psychological History: No Psychological Hx Reported Smoking Status: Never smoker Past Alcohol Use History: Occasional Past Drug Use History: None Reported - Past Family History Brother(s) Family Medical History: Cancer, Coronary Artery Disease (CAD) Mother History Unknown: Yes Family Medical History: No Reported History Additional Family Medical History / Comment(s): " from natural causes" Father Additional Family Medical History / Comment(s): from black lung, 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 [place] Medications and Allergies Home Medications Medication Instructions Recorded Confirmed Type Montelukast [Singulair] 10 mg PO DAILY 07/30/15 04/02/23 History Tamsulosin HCl [Flomax] 0.4 mg PO DAILY 07/21/17 04/02/23 History Apixaban [Eliquis] 2.5 mg PO BID 08/28/22 04/02/23 History Lovastatin [Mevacor] 20 mg PO HS 08/28/22 04/02/23 History Albuterol Nebulized [Ventolin 2.5 mg INHALATION RT-Q6H PRN 04/02/23 04/02/23 History Nebulized] Budesonide [Pulmicort] 0.5 mg INHALATION RT-BID 04/02/23 04/02/23 History Folic Acid 1 mg PO DAILY 04/02/23 04/02/23 History Furosemide [Lasix] 20 mg PO DAILY 04/02/23 04/02/23 History Oxybutynin Chloride [oxyBUTYnin 10 mg PO BID 04/02/23 04/02/23 History chloride ER] allopurinoL [Zyloprim] 100 mg PO BID 04/02/23 04/02/23 History amLODIPine [Norvasc] 5 mg PO DAILY 04/02/23 04/02/23 History hydrALAZINE HCL [Apresoline] 25 mg PO BID 04/02/23 04/02/23 History Allergies Allergy/AdvReac Type Severity Reaction Status Date / Time prednisone Allergy Hallucinati Verified 04/02/23 08:03 ons Physical Exam Vitals: Vital Signs Temp Pulse Resp BP Pulse Ox 04/02/23 07:50 97.6 F 70 20 130/64 97 04/02/23 06:22 97.6 F 71 17 138/69 98 04/02/23 03:30 64 13 127/64 97 04/02/23 03:00 61 12 127/63 97 04/02/23 02:55 62 12 124/61 96 04/02/23 01:34 97.1 F L 67 18 124/61 97 04/02/23 00:34 70 04/02/23 00:23 68 04/01/23 23:02 70 04/01/23 22:55 66 04/01/23 21:45 70 17 135/71 94 L Intake and Output 04/01/23 04/02/23 04/02/23 22:59 06:59 14:59 Output Total 1258 Balance -1258 Output: Urine 700 Uretheral (Riley) 700 Post Void Residual 558 Other: Weight 79.379 kg Results 04/01/23 21:51 04/02/23 06:15 Cardiac Enzymes 04/01/23 04/01/23 Range/Units 21:51 21:51 AST 21 (17-59) U/L Troponin I <0.012 (0.000-0.034) ng/mL Coagulation 04/01/23 Range/Units 21:51 PT 12.3 (10.0-12.5) sec APTT 33.1 H (22.0-30.0) sec CBC 04/01/23 Range/Units 21:51 WBC 8.4 (3.8-10.6) k/uL RBC 3.44 L (4.30-5.90) m/uL Hgb 10.7 L (13.0-17.5) gm/dL Hct 34.0 L (39.0-53.0) % Plt Count 121 L (150-450) k/uL Comprehensive Metabolic Panel 04/01/23 04/02/23 04/02/23 Range/Units 21:51 01:50 06:15 Sodium 138 138 (137-145) mmol/L Potassium 8.4 H* 5.6 H 6.2 H* (3.5-5.1) mmol/L Chloride 108 H 104 (98-107) mmol/L Carbon Dioxide 18 L 24 (22-30) mmol/L BUN 74 H 89 H (9-20) mg/dL Creatinine 3.68 H 3.67 H (0.66-1.25) mg/dL Glucose 85 121 H (74-99) mg/dL Calcium 9.0 9.4 (8.4-10.2) mg/dL AST 21 (17-59) U/L ALT 20 (4-49) U/L Alkaline Phosphatase 88 (38-126) U/L Total Protein 6.6 (6.3-8.2) g/dL Albumin 3.4 L (3.5-5.0) g/dL Current Medications Generic Name Dose Route Start Last Admin Trade Name Freq PRN Reason Stop Dose Admin Albuterol/Ipratropium 3 ml 04/02/23 06:22 Ipratropium-Albuterol 3 Ml Neb INHALATION RT-Q4H PRN Shortness Of Breath Budesonide 0.5 mg 04/02/23 08:00 Budesonide 0.5 Mg/2 Ml Nebu INHALATION RT-BID PRAVIN Sodium Bicarbonate 150 ml/ 1,150 mls @ 50 mls/hr 04/02/23 00:00 04/02/23 01:26 Dextrose/Water IV 50 mls/hr .Q23H PRAVIN Administration Calcium Gluconate/Sodium 100 mls @ 100 mls/hr 04/02/23 07:30 04/02/23 07:58 Chloride 1 gm/ IV Solution IVPB 04/02/23 08:29 100 mls/hr ONCE ONE Administration Naloxone HCl 0.2 mg 04/02/23 00:08 Naloxone 0.4 Mg/Ml 1 Ml Vial IV Q2M PRN Opioid Reversal Intake and Output 04/01/23 04/02/23 04/02/23 22:59 06:59 14:59 Output Total 1258 Balance -1258 Output: Urine 700 Uretheral (Riley) 700 Post Void Residual 558 Other: Weight 79.379 kg 04/01/23 21:51 04/02/23 06:15
--- NOTE | 2023-04-02 11:05 | P.NPCON ---
History of Present Illness - Reason for Consult acute renal failure, chronic renal failure, hyperkalemia - History of Present Illness Reason for consultation: Acute kidney injury on chronic kidney disease and hyperkalemia History of present illness: Patient is a 87-year-old male seen in renal consultation for acute kidney injury on chronic kidney disease and hyperkalemia. Patient has chronic kidney disease stage IV with baseline creatinine near 3 secondary to nephrosclerosis and obstructive uropathy. Patient initially presented to [facility] and was noted to be anemic. He received blood transfusion and was subsequently transferred here. He denies any melena or hematochezia. Denies gross hematuria. Patient's creatinine is stable at 3.67. Potassium was elevated at 8.4 and improved to 5.6 with medical management. It was back up to 6.2 this morning. Patient received IV calcium, insulin with D50, Lasix as well as Lokelma this morning. Repeat labs are pending. Patient states he felt the urge to urinate but was not urinating much. He was noted to have urinary retention and Riley catheter was placed. I do not see any meds that can raise the potassium level on his medication list. He is noted to have pleural effusions and is being followed by pulmonology for possible thoracentesis. He has been started on IV Lasix 40 mg every 8 hours. Nonoliguric. He is currently on nasal cannula. Denies use of nonsteroidals. No history of diabetes. Does admit to loose bowel movements intermittently. Vital signs are stable. General: No acute distress. HEENT: Head exam is unremarkable. On room air. LUNGS: No audible rhonchi or wheezes. HEART: Rate and Rhythm are regular. ABDOMEN: Nontender. EXTREMITITES: Trace edema. Past Medical History Past Medical History: Asthma, Heart Failure, COPD, GERD/Reflux, Hyperlipidemia, Prostate Disorder Additional Past Medical History / Comment(s): HYPOTENSION, PAST ANEMIA USED TO TAKE IRON SUPPLEMENTS, SEASONAL ALLERGIES, ENLARGED PROSTATE. GOUT. NEUROPATHY History of Any Multi-Drug Resistant Organisms: None Reported Past Surgical History: Hernia Repair, Orthopedic Surgery Additional Past Surgical History / Comment(s): FOOT SURG(.scraped bones- ancelmo 5th toes), cataracts- lens implants, [facility] HERNIA REPAIR W/MESH Past Anesthesia/Blood Transfusion Reactions: No Reported Reaction Past Psychological History: No Psychological Hx Reported Smoking Status: Never smoker Past Alcohol Use History: Occasional Past Drug Use History: None Reported - Past Family History Brother(s) Family Medical History: Cancer, Coronary Artery Disease (CAD) Mother History Unknown: Yes Family Medical History: No Reported History Additional Family Medical History / Comment(s): " from natural causes" Father Additional Family Medical History / Comment(s): from black lung, 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 [place] Medications and Allergies Home Medications Medication Instructions Recorded Confirmed Type Montelukast [Singulair] 10 mg PO DAILY 07/30/15 04/02/23 History Tamsulosin HCl [Flomax] 0.4 mg PO DAILY 07/21/17 04/02/23 History Apixaban [Eliquis] 2.5 mg PO BID 08/28/22 04/02/23 History Lovastatin [Mevacor] 20 mg PO HS 08/28/22 04/02/23 History Albuterol Nebulized [Ventolin 2.5 mg INHALATION RT-Q6H PRN 04/02/23 04/02/23 History Nebulized] Budesonide [Pulmicort] 0.5 mg INHALATION RT-BID 04/02/23 04/02/23 History Folic Acid 1 mg PO DAILY 04/02/23 04/02/23 History Furosemide [Lasix] 20 mg PO DAILY 04/02/23 04/02/23 History Oxybutynin Chloride [oxyBUTYnin 10 mg PO BID 04/02/23 04/02/23 History chloride ER] allopurinoL [Zyloprim] 100 mg PO BID 04/02/23 04/02/23 History amLODIPine [Norvasc] 5 mg PO DAILY 04/02/23 04/02/23 History hydrALAZINE HCL [Apresoline] 25 mg PO BID 04/02/23 04/02/23 History Allergies Allergy/AdvReac Type Severity Reaction Status Date / Time prednisone Allergy Hallucinati Verified 04/02/23 08:03 ons Physical Exam Vitals: Vital Signs Temp Pulse Resp BP Pulse Ox 04/02/23 10:22 73 17 136/71 98 04/02/23 09:16 74 17 143/70 98 04/02/23 08:31 72 04/02/23 08:18 73 99 04/02/23 08:05 73 17 135/66 97 04/02/23 07:50 97.6 F 70 20 130/64 97 04/02/23 06:22 97.6 F 71 17 138/69 98 04/02/23 03:30 64 13 127/64 97 04/02/23 03:00 61 12 127/63 97 04/02/23 02:55 62 12 124/61 96 04/02/23 01:34 97.1 F L 67 18 124/61 97 04/02/23 00:34 70 04/02/23 00:23 68 04/01/23 23:02 70 04/01/23 22:55 66 04/01/23 21:45 70 17 135/71 94 L Intake and Output 04/01/23 04/02/23 04/02/23 22:59 06:59 14:59 Output Total 1258 325 Balance -1258 -325 Output: Urine 700 325 Uretheral (Riley) 700 325 Post Void Residual 558 Other: Weight 79.379 kg Results - Lab Results Most recent lab results Calcium 9.4 mg/dL (8.4-10.2) 04/02/23 06:15 Magnesium 2.3 mg/dL (1.6-2.3) 04/01/23 21:51 04/01/23 21:51 04/02/23 06:15 Assessment and Plan Plan: Assessment: 1. Acute kidney injury secondary to ATN secondary to anemia and urinary retention. Creatinine stable at 3.67. No hydronephrosis noted on kidney ultrasound. 2. Chronic kidney disease stage IV with baseline creatinine near 3 secondary to nephrosclerosis and obstructive uropathy. 3. Hyperkalemia secondary to acute kidney injury, acidosis and urinary retention. 4. Volume overload with pleural effusions. 5. Acute blood loss anemia status post blood transfusion this admission. 6. Acute on chronic systolic CHF ejection fraction of 45 to 50% with mild to moderate mitral and tricuspid regurgitation. 7. Metabolic acidosis secondary to acute kidney injury improved with bicarb drip. 8. Urinary retention status post Riley catheter placement. On Flomax. Plan: Stop bicarb drip. Maintain IV Lasix. Follow-up repeat labs. Follow-up echocardiogram. Avoid nephrotoxins. Continue to monitor renal function and urine output. Thank you for the consultation. I will continue to follow the patient with you during his hospital stay.
[2023-04-02 11:51] LABS: African American GFR (CKD) 16 (>60 ml/min/1.73 sqM); Anion Gap 9 mmol/L; Blood Urea Nitrogen 87 mg/dL (9-20); Calcium 9.7 mg/dL (8.4-10.2); Carbon Dioxide 26 mmol/L (22-30); Chloride 104 mmol/L (98-107); Glucose 132 mg/dL (74-99); Non-African American GFR(CKD) 14 (>60 ml/min/1.73 sqM); Potassium 5.6 mmol/L (3.5-5.1); Sodium 139 mmol/L (137-145)
--- NOTE | 2023-04-02 13:00 | P.HPIM ---
History of Present Illness H&P Date: 04/02/23 History of present illness; Patient is a 87-year-old white male with past medical history significant for chronic kidney disease, congestive heart failure, atrial fibrillation anticoagulated on Eliquis, hyperlipidemia, COPD, and BPH, who was transferred from [facility] for severe hyperkalemia and acute kidney injury. Patient has been complaining of shortness of breath and weakness for a few days. Patient also complaining of sore throat. Patient weakness and shortness of breath progressed so he eventually presented to [facility] where he was evaluated, patient was found to have elevated potassium levels of 8.4, patient was given hyperkalemia protocol and received sodium bicarb, Lokelma, insulin and dextrose. Chest x-ray done showed large left pleural effusion small right pleural effusion, patient was transferred to [facility]. Patient has been complaining of shortness of breath on exertion and rest. Denies any chest pain. There is complaint of swelling of lower extremities. Patient complaining of nonproductive cough. Denies any fevers or chills Patient admitted to internal medicine service REVIEW OF SYSTEMS: CONSTITUTIONAL: No fever, no malaise, no fatigue. HEENT: No recent visual problems or hearing problems. Denied any sore throat. CARDIOVASCULAR: As mentioned above PULMONARY: As mentioned above GASTROINTESTINAL: No diarrhea, no nausea, no vomiting, no abdominal pain. NEUROLOGICAL: No headaches, no weakness, no numbness. HEMATOLOGICAL: Denies any bleeding or petechiae. GENITOURINARY: Denies any burning micturition, frequency, or urgency. MUSCULOSKELETAL/RHEUMATOLOGICAL: Denies any joint pain, swelling, or any muscle pain. ENDOCRINE: Denies any polyuria or polydipsia. The rest of the 14-point review of systems is negative. PHYSICAL EXAMINATION: GENERAL: The patient is alert and oriented x3, not in any acute distress. Well developed, well nourished. HEENT: Pupils are round and equally reacting to light. EOMI. No scleral icterus. No conjunctival pallor. Normocephalic, atraumatic. No pharyngeal erythema. No thyromegaly. CARDIOVASCULAR: S1 and S2 present. No murmurs, rubs, or gallops. PULMONARY: Diminished breath sounds at bases bilaterally, bilateral crackles audible ABDOMEN: Soft, nontender, nondistended, normoactive bowel sounds. No palpable organomegaly. MUSCULOSKELETAL: No joint swelling or deformity. EXTREMITIES: 2+ pitting in the lower extremities bilaterally NEUROLOGICAL: Gross neurological examination did not reveal any focal deficits. SKIN: No rashes. Assessment and plan Hyperkalemia Acute hypoxic respiratory failure Acute on chronic kidney disease Acute systolic CHF History paroxysmal A-fib COPD Lactic acidosis Bilateral pleural effusion Monitor vital signs Monitor CBC Monitor CMP Continue telemetry monitoring Trend troponins. Order 2D echo Avoid nephrotoxic agents Continue breathing treatment Continue IV Lasix 40 mg Q8 Hold Eliquis for possible thoracentesis Nephrology consulted Pulmonology consulted Cardiology consulted Labs and medication were reviewed.. Continue same treatment. Continue with symptomatic treatment. Resume home medication. Monitor labs and vitals. DVT and GI prophylaxis. Further recommendations as per clinical course of the patient Dictation was produced using Blackberry dictation software. please excuse any grammatical, word or spelling errors. Past Medical History Past Medical History: Asthma, Heart Failure, COPD, GERD/Reflux, Hyperlipidemia, Prostate Disorder Additional Past Medical History / Comment(s): HYPOTENSION, PAST ANEMIA USED TO TAKE IRON SUPPLEMENTS, SEASONAL ALLERGIES, ENLARGED PROSTATE. GOUT. NEUROPATHY History of Any Multi-Drug Resistant Organisms: None Reported Past Surgical History: Hernia Repair, Orthopedic Surgery Additional Past Surgical History / Comment(s): FOOT SURG(.scraped bones- ancelmo 5th toes), cataracts- lens implants, [facility] HERNIA REPAIR W/MESH Past Anesthesia/Blood Transfusion Reactions: No Reported Reaction Past Psychological History: No Psychological Hx Reported Smoking Status: Never smoker Past Alcohol Use History: Occasional Past Drug Use History: None Reported - Past Family History Brother(s) Family Medical History: Cancer, Coronary Artery Disease (CAD) Mother History Unknown: Yes Family Medical History: No Reported History Additional Family Medical History / Comment(s): " from natural causes" Father Additional Family Medical History / Comment(s): 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 lung, 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[place] Medications and Allergies Home Medications Medication Instructions Recorded Confirmed Type Montelukast [Singulair] 10 mg PO DAILY 07/30/15 04/02/23 History Tamsulosin HCl [Flomax] 0.4 mg PO DAILY 07/21/17 04/02/23 History Apixaban [Eliquis] 2.5 mg PO BID 08/28/22 04/02/23 History Lovastatin [Mevacor] 20 mg PO HS 08/28/22 04/02/23 History Albuterol Nebulized [Ventolin 2.5 mg INHALATION RT-Q6H PRN 04/02/23 04/02/23 History Nebulized] Budesonide [Pulmicort] 0.5 mg INHALATION RT-BID 04/02/23 04/02/23 History Folic Acid 1 mg PO DAILY 04/02/23 04/02/23 History Furosemide [Lasix] 20 mg PO DAILY 04/02/23 04/02/23 History Oxybutynin Chloride [oxyBUTYnin 10 mg PO BID 04/02/23 04/02/23 History chloride ER] allopurinoL [Zyloprim] 100 mg PO BID 04/02/23 04/02/23 History amLODIPine [Norvasc] 5 mg PO DAILY 04/02/23 04/02/23 History hydrALAZINE HCL [Apresoline] 25 mg PO BID 04/02/23 04/02/23 History Allergies Allergy/AdvReac Type Severity Reaction Status Date / Time prednisone Allergy Hallucinati Verified 04/02/23 08:03 ons Physical Exam Vitals: Vital Signs Temp Pulse Resp BP Pulse Ox 04/02/23 08:31 72 04/02/23 08:18 73 99 04/02/23 08:05 73 17 135/66 97 04/02/23 07:50 97.6 F 70 20 130/64 97 04/02/23 06:22 97.6 F 71 17 138/69 98 04/02/23 03:30 64 13 127/64 97 04/02/23 03:00 61 12 127/63 97 04/02/23 02:55 62 12 124/61 96 04/02/23 01:34 97.1 F L 67 18 124/61 97 04/02/23 00:34 70 04/02/23 00:23 68 04/01/23 23:02 70 04/01/23 22:55 66 04/01/23 21:45 70 17 135/71 94 L Intake and Output 04/01/23 04/02/23 04/02/23 22:59 06:59 14:59 Output Total 1258 Balance -1258 Output: Urine 700 Uretheral (Riley) 700 Post Void Residual 558 Other: Weight 79.379 kg Results CBC & Chem 7: 04/01/23 21:51 04/02/23 11:19 Labs: Abnormal Lab Results - Last 24 Hours (Table) 04/01/23 04/01/23 04/01/23 Range/Units 21:51 21:51 21:51 RBC 3.44 L (4.30-5.90) m/uL Hgb 10.7 L (13.0-17.5) gm/dL Hct 34.0 L (39.0-53.0) % RDW 17.7 H (11.5-15.5) % Plt Count 121 L (150-450) k/uL Lymphocytes # 0.8 L (1.0-4.8) k/uL INR 1.2 H (<1.2) APTT 33.1 H (22.0-30.0) sec Potassium (3.5-5.1) mmol/L Chloride (98-107) mmol/L Carbon Dioxide (22-30) mmol/L BUN (9-20) mg/dL Creatinine (0.66-1.25) mg/dL Glucose (74-99) mg/dL POC Glucose (mg/dL) (70-110) mg/dL Plasma Lactic Acid Natan (0.7-2.0) mmol/L Albumin (3.5-5.0) g/dL Urine Protein Trace H (Negative) 04/01/23 04/01/23 04/02/23 Range/Units 21:51 21:51 01:13 RBC (4.30-5.90) m/uL Hgb (13.0-17.5) gm/dL Hct (39.0-53.0) % RDW (11.5-15.5) % Plt Count (150-450) k/uL Lymphocytes # (1.0-4.8) k/uL INR (<1.2) APTT (22.0-30.0) sec Potassium 8.4 H* (3.5-5.1) mmol/L Chloride 108 H (98-107) mmol/L Carbon Dioxide 18 L (22-30) mmol/L BUN 74 H (9-20) mg/dL Creatinine 3.68 H (0.66-1.25) mg/dL Glucose (74-99) mg/dL POC Glucose (mg/dL) 28 L (70-110) mg/dL Plasma Lactic Acid Natan 3.8 H* (0.7-2.0) mmol/L Albumin 3.4 L (3.5-5.0) g/dL Urine Protein (Negative) 04/02/23 04/02/23 04/02/23 Range/Units 01:42 01:50 02:07 RBC (4.30-5.90) m/uL Hgb (13.0-17.5) gm/dL Hct (39.0-53.0) % RDW (11.5-15.5) % Plt Count (150-450) k/uL Lymphocytes # (1.0-4.8) k/uL INR (<1.2) APTT (22.0-30.0) sec Potassium 5.6 H (3.5-5.1) mmol/L Chloride (98-107) mmol/L Carbon Dioxide (22-30) mmol/L BUN (9-20) mg/dL Creatinine (0.66-1.25) mg/dL Glucose (74-99) mg/dL POC Glucose (mg/dL) 173 H 144 H (70-110) mg/dL Plasma Lactic Acid Natan (0.7-2.0) mmol/L Albumin (3.5-5.0) g/dL Urine Protein (Negative) 04/02/23 04/02/23 04/02/23 Range/Units 04:52 06:15 06:15 RBC (4.30-5.90) m/uL Hgb (13.0-17.5) gm/dL Hct (39.0-53.0) % RDW (11.5-15.5) % Plt Count (150-450) k/uL Lymphocytes # (1.0-4.8) k/uL INR (<1.2) APTT (22.0-30.0) sec Potassium 6.2 H* (3.5-5.1) mmol/L Chloride (98-107) mmol/L Carbon Dioxide (22-30) mmol/L BUN 89 H (9-20) mg/dL Creatinine 3.67 H (0.66-1.25) mg/dL Glucose 121 H (74-99) mg/dL POC Glucose (mg/dL) 118 H 133 H (70-110) mg/dL Plasma Lactic Acid Natan (0.7-2.0) mmol/L Albumin (3.5-5.0) g/dL Urine Protein (Negative) 04/02/23 Range/Units 07:43 RBC (4.30-5.90) m/uL Hgb (13.0-17.5) gm/dL Hct (39.0-53.0) % RDW (11.5-15.5) % Plt Count (150-450) k/uL Lymphocytes # (1.0-4.8) k/uL INR (<1.2) APTT (22.0-30.0) sec Potassium (3.5-5.1) mmol/L Chloride (98-107) mmol/L Carbon Dioxide (22-30) mmol/L BUN (9-20) mg/dL Creatinine (0.66-1.25) mg/dL Glucose (74-99) mg/dL POC Glucose (mg/dL) 158 H (70-110) mg/dL Plasma Lactic Acid Natan (0.7-2.0) mmol/L Albumin (3.5-5.0) g/dL Urine Protein (Negative)
[2023-04-02] MEDS: FUROSEMIDE 10 MG/ML 4 ML VIAL IV SCH (15:45)
[2023-04-02] MEDS ORDERED: ATORVASTATIN 10 MG TAB PO SCH (21:00)
[2023-04-02] MEDS ORDERED: APIXABAN 2.5 MG TABLET PO SCH (21:00)
[2023-04-02] MEDS: OXYBUTYNIN 10 MG TAB.ER.24 PO SCH (21:14)
[2023-04-02] MEDS: ATORVASTATIN 20 MG TAB PO SCH (21:14)
[2023-04-02] MEDS: allopurinoL 100 MG TAB PO SCH (21:14)
--- NOTE | 2023-04-02 23:55 | CA ---
Transthoracic Echo Report Name: Jesus Quispe Age: 87 Gender: M : 1935 Exam Date: 04/02/2023 11:22 Exam Location: [place] Echo Ht (in): 69 Wt (lb): 175 Ordering Physician: Iliana Denise Attending/Referring Phys: Air Lift Operator Gene Frausto RDCS Procedure CPT: Indications: LVF Cardiac Hx: Technical Quality: Fair Contrast 1: Total Dose (mL): Contrast 2: Total Dose (mL): MEASUREMENTS (Male / Female) Normal Values 2D ECHO LV Diastolic Diameter PLAX 5.3 cm 4.2 - 5.9 / 3.9 - 5.3 cm LV Systolic Diameter PLAX 4.5 cm IVS Diastolic Thickness 1.1 cm 0.6 - 1.0 / 0.6 - 0.9 cm LVPW Diastolic Thickness 0.9 cm 0.6 - 1.0 / 0.6 - 0.9 cm LV Relative Wall Thickness 0.4 Aortic Root Diameter 3.9 cm LA Systolic Diameter LX 4.5 cm 3.0 - 4.0 / 2.7 - 3.8 cm DOPPLER AV Peak Velocity 177.6 cm/s AV Peak Gradient 12.6 mmHg AV Mean Velocity 118.7 cm/s AV Mean Gradient 6.3 mmHg AV Velocity Time Integral 38.9 cm LVOT Peak Velocity 43.4 cm/s LVOT Peak Gradient 0.8 mmHg LVOT Velocity Time Integral 9.6 cm MV Peak Velocity 468.4 cm/s MV Peak Gradient 87.8 mmHg MV Mean Velocity 374.7 cm/s MV Mean Gradient 60.6 mmHg MV Velocity Time Integral 176.4 cm Mitral E Point Velocity 152.5 cm/s Mitral A Point Velocity 0.1 cm/s Mitral E to A Ratio 1482.6 MV Deceleration Time 249.3 ms MV E' Velocity 5.3 cm/s Mitral E to MV E' Ratio 28.7 TR Peak Velocity 327.6 cm/s TR Peak Gradient 42.9 mmHg PV Peak Velocity 89.4 cm/s PV Peak Gradient 3.2 mmHg FINDINGS Left Ventricle Left ventricular ejection fraction is estimated at 30-35 %. Mild left ventricular dilatation. Right Ventricle Right ventricular dilatation. Right Atrium Severe right atrial dilatation. Left Atrium Mildly increased left atrial diameter. Severe left atrial dilatation. Mitral Valve Mild mitral annular calcification. Moderate mitral regurgitation. Aortic Valve Aortic valve not well visualized. Tricuspid Valve Moderate tricuspid regurgitation. Pulmonic Valve Pulmonic valve not well visualized. Pericardium Normal pericardium. Aorta Aorta measurement approximately 3.9cm. CONCLUSIONS Left ventricular ejection fraction 30-35% with global hypokinesis Severe biatrial enlargement Moderate mitral regurgitation Decreased aortic valve leaflet excursion with likely at least moderate aortic stenosis. Demensionless index 0.24 which may be consistent with severe aortic stenosis, low-flow low gradient. Consider FÁTIMA if clinically indicated. Moderate tricuspid regurgitation Pleural effusion noted Previewed by: Dr. Dameon Mccracken DO (Electronically Signed) Final Date: 02 April 2023 23:54
[2023-04-03 07:36] LABS: Potassium 6.2 mmol/L (3.5-5.1)
[2023-04-03] MEDS: MONTELUKAST 10 MG TAB PO SCH (08:50)
[2023-04-03] MEDS: FOLIC ACID 1 MG TAB PO SCH (08:50)
[2023-04-03] MEDS: TAMSULOSIN 0.4 MG CAP.ER.24H PO SCH (08:50)
--- NOTE | 2023-04-03 09:23 | P.PN ---
Subjective Progress Note Date: 04/03/23 Consult reason: congestive heart failure History of present illness: History of present illness: This is an 87-year-old male patient of Dr. Rhodes with past medical history of permanent atrial fibrillation, hypertension, dyslipidemia, chronic systolic hear t failure, valvular heart disease, chronic kidney disease, chronic anemia. We have been asked to evaluate the patient for CHF. Patient states he has had sudden onset of shortness of breath since Thursday slowly worsening. He states he is taking all of his medications as directed. He is seen today in the emergency center waiting for bed on the cardiac stepdown unit. He states he continues to have some shortness of breath and dry mouth. Patient has has had multiple medication administrations for hyperkalemia managed by nephrology. He is status post IV Lasix 60 mg times once followed by 40 mg times once. Pulmonary medicine following and planning for possible thoracentesis. EKG atrial fibrillation with left bundle branch block Chest x-ray: Cardiomegaly, pulmonary vascular congestion, diffuse interstitial opacities concerning for pulmonary edema. Small right and moderate left lateral effusion. Left basilar airspace disease atelectasis or pneumonia. Chest ultrasound revealed left pleural effusion 8.3 cm pocket. WBC 8.4, hemoglobin 10.7, platelet count 121. INR 1.2. Sodium 138. Initial potassium 8.4 followed by 5.6 and 6.2. BUN 89 creatinine 3.67. Blood sugar 121. Initial lactic acid 3.8 followed by 1.6. Troponin negative x 1. proBNP 57,800. Liver function test within normal limits. Magnesium 2.3. Urinalysis negative for infection. Group A strep not detected. Home cardiac medications: Amlodipine 5 mg daily, Eliquis 2.5 mg twice daily, Lasix 20 mg daily, hydralazine 25 mg twice daily, lovastatin 20 mg at bedtime. Echocardiogram performed on 08/29/2022 revealed EF of 45%, mild to moderate mitral regurgitation. 04/03 Patient is seen today in follow-up and remains in the ER waiting for a bed on the cardiac stepdown unit. Repeat blood work reveals potassium of 5.6, BUN 87 creatinine 3.73. Patient is followed by nephrology. Echocardiogram reveals EF of 30 to 35%, severe biatrial enlargement, moderate mitral rotation. Decreased aortic valve leaflet excursion likely moderate aortic stenosis. Moderate tricuspid regurgitation. Pleural effusion noted. Physical examination: Gen: This is an 87-year-old male in no acute distress VS: reviewed blood pressure 114/58, heart rate 78, pulse ox 96% on room air. HEENT: Head is atraumatic, normocephalic. Pupils equal, round. Sclerae is anicteric. NECK: Supple. No JVD. LUNGS: Diminished breath sounds. No intercostal retractions. HEART: Regular rate and rhythm. Systolic murmur at the right and left upper vish rnal border.. ABDOMEN: Soft No tenderness. EXTREMITIES: 1+ pedal edema. No calf tenderness. NEUROLOGICAL: Patient is awake, alert and oriented x3. Assessment: Acute on chronic systolic heart failure Pleural effusion Acute kidney injury and chronic kidney disease Severe hyperkalemia Permanent atrial fibrillation on Eliquis Hypertension Dyslipidemia Valvular heart disease with moderate mitral regurgitation Chronic anemia Plan: Continue patient's home cardiac medications Continue patient on IV Lasix 40 mg every 8 hours Monitor OTTONIEL, daily weights, electrolytes and renal function Resume Eliquis if okay with pulmonary medicine Further recommendations to follow based upon clinical course Nurse practitioner note has been reviewed, I agree with documented findings and plan of care. Patient was seen and examined. Objective - Vital Signs Vital signs: Vital Signs Temp 97.6 F 04/03/23 04:00 Pulse 76 04/03/23 04:00 Resp 16 04/03/23 04:00 BP 126/58 04/03/23 04:00 Pulse Ox 97 04/03/23 04:00 FiO2 Intake & Output 04/02/23 04/03/23 04/03/23 18:59 06:59 18:59 Output Total 650 600 Balance -650 -600 Weight 79.379 kg Output: Urine 650 600 Uretheral (Riley) 325 Other: Voiding Method Indwelling Catheter - Labs CBC & Chem 7: 04/01/23 21:51 04/02/23 17:56 Labs: Abnormal Lab Results - Last 24 Hours (Table) 04/02/23 04/02/23 04/02/23 Range/Units 06:15 09:50 11:19 Potassium 6.2 H* 5.6 H (3.5-5.1) mmol/L BUN 87 H (9-20) mg/dL Creatinine 3.73 H (0.66-1.25) mg/dL Glucose 132 H (74-99) mg/dL POC Glucose (mg/dL) 160 H (70-110) mg/dL 04/02/23 Range/Units 17:56 Potassium 5.6 H (3.5-5.1) mmol/L BUN (9-20) mg/dL Creatinine (0.66-1.25) mg/dL Glucose (74-99) mg/dL POC Glucose (mg/dL) (70-110) mg/dL
[2023-04-03] MEDS: APIXABAN 2.5 MG TABLET PO SCH (10:03)
[2023-04-03] MEDS ORDERED: ZINC OXIDE PASTE (Z-GUARD) 1 APPLIC TOPICAL PRN (10:28)
--- NOTE | 2023-04-03 10:51 | P.PN ---
Subjective Progress Note Date: 04/03/23 Patient is a 87-year-old white male with past medical history significant for chronic kidney disease, congestive heart failure, atrial fibrillation anticoagulated on Eliquis, hyperlipidemia, COPD, and BPH, who was transferred from [facility] for severe hyperkalemia and acute kidney injury. Filiberto gomes has been complaining of shortness of breath and weakness for a few days. Patient also complaining of sore throat. Patient weakness and shortness of breath progressed so he eventually presented to [facility] where he was evaluated, patient was found to have elevated potassium levels of 8.4, patient was given hyperkalemia protocol and received sodium bicarb, Lokelma, insulin and dextrose. Chest x-ray done showed large left pleural effusion small right pleural effusion, patient was transferred to . Patient has been complaining of shortness of breath on exertion and rest. Denies any chest pain. There is complaint of swelling of lower extremities. Patient complaining of nonproductive cough. Denies any fevers or chills Patient admitted to internal medicine service 04/03. Patient seen and examined. 2D echo done showed LVEF of 35% with global hypokinesis, severe biatrial enlargement, moderate mitral regurg, severe aortic stenosis. REVIEW OF SYSTEMS: CONSTITUTIONAL: No fever, no malaise,. CARDIOVASCULAR: No chest pain, no palpitations, no syncope. PULMONARY: No shortness of breath, no cough, GASTROINTESTINAL: No diarrhea, no nausea, no vomiting, no abdominal pain. NEUROLOGICAL: No headaches, no weakness, PHYSICAL EXAMINATION: GENERAL: The patient is alert and oriented x3, not in any acute distress. Well developed, well nourished. HEENT: Pupils are round and equally reacting to light. EOMI. No scleral icterus. No conjunctival pallor. Normocephalic, atraumatic. No pharyngeal erythema. No thyromegaly. CARDIOVASCULAR: S1 and S2 present. No murmurs, rubs, or gallops. PULMONARY: Chest is clear to auscultation, no wheezing or crackles. ABDOMEN: Soft, nontender, nondistended, normoactive bowel sounds. No palpable organomegaly. MUSCULOSKELETAL: No joint swelling or deformity. EXTREMITIES: No cyanosis, clubbing, or pedal edema. NEUROLOGICAL: Gross neurological examination did not reveal any focal deficits. SKIN: No rashes. Assessment and plan Hyperkalemia Acute hypoxic respiratory failure Acute on chronic kidney disease Acute on chronic systolic CHF History paroxysmal A-fib COPD Lactic acidosis Bilateral pleural effusion aortic stenosis Monitor vital signs Monitor CBC Monitor CMP Continue telemetry monitoring Trend troponins. Order 2D echo Avoid nephrotoxic agents Continue breathing treatment Continue IV Lasix 40 mg Q8 Continue Eliquis Nephrology following Pulmonology following, do not recommend thoracentesis at this time Cardiology following Labs and medication were reviewed.. Continue same treatment. Continue with symptomatic treatment. Resume home medication. Monitor labs and vitals. DVT and GI prophylaxis. Further recommendations as per clinical course of the patient Dictation was produced using [facility] dictation software. please excuse any grammatical, word or spelling errors. Objective - Vital Signs Vital signs: Vital Signs Temp 97.3 F L 04/03/23 08:42 Pulse 76 04/03/23 08:53 Resp 16 04/03/23 08:42 BP 114/58 04/03/23 08:42 Pulse Ox 97 04/03/23 08:53 FiO2 Intake & Output 04/02/23 04/03/23 04/03/23 18:59 06:59 18:59 Intake Total 20 Output Total 650 600 200 Balance -650 -600 -180 Weight 79.379 kg Intake: IV 20 Invasive Line 1 10 Invasive Line 2 10 Output: Urine 650 600 200 Uretheral (Riley) 325 200 Other: Voiding Method Indwelling Catheter Indwelling Catheter - Labs CBC & Chem 7: 04/01/23 21:51 04/02/23 17:56 Labs: Abnormal Lab Results - Last 24 Hours (Table) 04/02/23 04/02/23 04/02/23 Range/Units 06:15 11:19 17:56 Potassium 6.2 H* 5.6 H 5.6 H (3.5-5.1) mmol/L BUN 87 H (9-20) mg/dL Creatinine 3.73 H (0.66-1.25) mg/dL Glucose 132 H (74-99) mg/dL
[2023-04-03 11:18] LABS: Anisocytosis Slight; Basophils % (A) 0 %; Eosinophils % (A) 0 %; HCT 25.4 % (39.0-53.0); Hypochromasia Moderate; Lymphocytes # (A) 0.6 k/uL (1.0-4.8); Lymphocytes % (A) 7 %; MCH 31.5 pg (25.0-35.0); MCHC 31.9 g/dL (31.0-37.0); MCV 98.8 fL (80.0-100.0); Macrocytosis Moderate; Mean Platelet Volume 10.7; Monocytes # (A) 0.4 k/uL (0-1.0); Monocytes % (A) 5 %; Neutrophils # (A) 7.5 k/uL (1.3-7.7); Neutrophils % (A) 87 %; Platelet Count 127 k/uL (150-450); Poikilocytosis Slight; RBC 2.58 m/uL (4.30-5.90); RDW 18.9 % (11.5-15.5); WBC 8.6 k/uL (3.8-10.6)
[2023-04-03 11:31] LABS: HGB 8.1 gm/dL (13.0-17.5)
[2023-04-03 11:52] LABS: ALT 22 U/L (4-49); AST 22 U/L (17-59); African American GFR (CKD) 15 (>60 ml/min/1.73 sqM); Albumin 3.4 g/dL (3.5-5.0); Alkaline Phosphatase 82 U/L (38-126); Anion Gap 12 mmol/L; Blood Urea Nitrogen 89 mg/dL (9-20); Calcium 9.2 mg/dL (8.4-10.2); Carbon Dioxide 26 mmol/L (22-30); Chloride 101 mmol/L (98-107); Glucose 118 mg/dL (74-99); Magnesium 2.2 mg/dL (1.6-2.3); Non-African American GFR(CKD) 13 (>60 ml/min/1.73 sqM); Sodium 139 mmol/L (137-145); Total Bilirubin 0.5 mg/dL (0.2-1.3); Total Protein 6.3 g/dL (6.3-8.2)
--- NOTE | 2023-04-03 12:34 | P.PN ---
Subjective Patient is seen in follow-up for acute kidney injury on chronic kidney disease. On IV Lasix. Urine output 1.2 L in the last 24 hours. Potassium level improved. On nasal cannula. Denies chest pain or shortness of breath. Vital signs are stable. General: No acute distress. HEENT: Head exam is unremarkable. LUNGS: No acute distress. HEART: Rate and Rhythm are regular. ABDOMEN: Nontender. EXTREMITITES: No edema. Objective - Vital Signs Vital signs: Vital Signs Temp 97.3 F L 04/03/23 08:42 Pulse 79 04/03/23 12:11 Resp 16 04/03/23 10:52 BP 115/56 04/03/23 10:52 Pulse Ox 86 L 04/03/23 10:54 FiO2 Intake & Output 04/02/23 04/03/23 04/03/23 18:59 06:59 18:59 Intake Total 242 Output Total 650 600 200 Balance -650 -600 42 Weight 79.379 kg Intake: IV 20 Invasive Line 1 10 Invasive Line 2 10 Oral 222 Output: Urine 650 600 200 Uretheral (Riley) 325 200 Other: Voiding Method Indwelling Catheter Indwelling Catheter - Labs CBC & Chem 7: 04/03/23 10:45 04/03/23 10:45 Labs: Abnormal Lab Results - Last 24 Hours (Table) 04/02/23 04/02/23 04/03/23 Range/Units 06:15 17:56 10:45 RBC 2.58 L (4.30-5.90) m/uL Hgb 8.1 L D (13.0-17.5) gm/dL Hct 25.4 L (39.0-53.0) % RDW 18.9 H (11.5-15.5) % Plt Count 127 L (150-450) k/uL Lymphocytes # 0.6 L (1.0-4.8) k/uL Potassium 6.2 H* 5.6 H (3.5-5.1) mmol/L BUN (9-20) mg/dL Creatinine (0.66-1.25) mg/dL Glucose (74-99) mg/dL Albumin (3.5-5.0) g/dL 04/03/23 Range/Units 10:45 RBC (4.30-5.90) m/uL Hgb (13.0-17.5) gm/dL Hct (39.0-53.0) % RDW (11.5-15.5) % Plt Count (150-450) k/uL Lymphocytes # (1.0-4.8) k/uL Potassium (3.5-5.1) mmol/L BUN 89 H (9-20) mg/dL Creatinine 4.02 H (0.66-1.25) mg/dL Glucose 118 H (74-99) mg/dL Albumin 3.4 L (3.5-5.0) g/dL Assessment and Plan Plan: Assessment: 1. Acute kidney injury secondary to ATN secondary to anemia and urinary ret ention. Renal function worse from diuresis. Creatinine up to 4.02 today. No hydronephrosis noted on kidney ultrasound. 2. Chronic kidney disease stage IV with baseline creatinine near 3 secondary to nephrosclerosis and obstructive uropathy. 3. Hyperkalemia secondary to acute kidney injury, acidosis and urinary retention. Improved with medical management. 4. Volume overload with pleural effusions. 5. Acute blood loss anemia status post blood transfusion this admission. 6. Acute on chronic systolic CHF ejection fraction of 30 to 35% with moderate mitral and tricuspid regurgitation. 7. Metabolic acidosis secondary to acute kidney injury improved with bicarb drip. 8. Urinary retention status post Riley catheter placement. On Flomax. Plan: Maintain IV Lasix. Change to 60 mg IV twice daily. Avoid nephrotoxins. Continue to monitor renal function and urine output. Add Aranesp. Continue to assess daily for need for renal replacement therapy. No urgency at this time.
--- NOTE | 2023-04-03 13:10 | P.PN ---
Subjective Progress Note Date: 04/03/23 I am seeing this patient in consultation today 04/02/2023 for dyspnea and left- sided pleural effusion. He is currently in the emergency room. He was transferred from [facility] late last night for severe hyperkalemia and acute kidney injury. Patient is a 87-year-old white male with past medical history significant for chronic kidney disease, congestive heart failure, atrial fibrillation anticoagulated on Eliquis, hyperlipidemia, COPD, and BPH. Patient is technically a poor historian. Apparently, he is complaining of shortness of breath, weakness and sore throat over the last several days. This progressively worsened, and he went into [facility] to be evaluated. Patient was found to be severely hyperkalemic. He was also found to be anemic and was transfused 1 unit PRBC. He was transferred to [facility]. Patient is currently resting in bed, on 2 L/min nasal cannula, in no acute distress. He is weak and cannot sit up in bed without assistance. Becomes short of breath with any kind of activity. He denies any chest pain, heart palpitations, or syncopal events. He does have bilateral lower extremity swelling. He has an occasional nonproductive cough. Denies any sputum production, fevers. Chest x-ray on arrival shows cardiomegaly, pulmonary vascu lar congestion, and interstitial edema. There is a moderate to large left-sided pleural effusion and small right pleural effusion.. Patient was given 60 mg of IV Lasix. A Riley catheter was inserted, and the patient has approximately 800 mL of concentrated urine. Patient states that earlier in the week he has had troubles urinating. He voids about 2-3 times per day. Endorses dysuria. Denies any hematuria, urinary frequency. Urinalysis on arrival not concerning for UTI. Trace protein. He does have baseline chronic kidney disease. Ultrasound of the abdomen and bladder did not show any hydronephrosis. Potassium level on arrival was elevated at 8.4 and is down to 5 point 3:06 amp sodium bicarb, 10 g Lokelma, 10 units insulin, 2 A D50 W, calcium gluconate, and the above-mentioned Lasix. Nephrology has been consulted. There is D5W with 3 amp sodium bicarb infusing at 50 MLS per hour. BMP on arrival has a sodium 138, testing 8.4, chloride 108, serum bicarb 18, BUN 74, creatinine 3.68, and glucose 85. Lactic acid level was 3.8 on arrival and is down to 1.6. Troponin less daniel n 0.012. NT proBNP 57,800. ECG shows normal sinus rhythm with chronic left bundle branch block without any obvious hyperkalemic changes. CBC on arrival: WBC count 8.4, hemoglobin 10.7, hematocrit 34, platelets 121. Group A strep negative. No signs of bleeding. Patient has chronic anemia. Patient denies any acute blood loss. No bloody bowel movements, melena, hematemesis. No abdominal pain or diarrhea. Vital signs are stable. The patient is seen today April 03, 2023 in follow-up in the emergency department. He is currently sitting up on the stretcher. Awake and alert in no acute distress. He is breathing a bit easier today compared to yesterday. He states he is about 50% better. He is still somewhat bronchospastic and wheezing. White count 8.6. Hemoglobin 8.1. Platelets 127. Sodium 139. Potassium 5.0. BUN 89. Creatinine 4.02. Glucose 118. He is continued on IV diuretics. Anticoagulated with Eliquis. Continued on bronchodilators. Currently in a -1.2 L balance. Making good urine. Objective - Vital Signs Vital signs: Vital Signs Temp 97.3 F L 04/03/23 08:42 Pulse 79 04/03/23 12:11 Resp 16 04/03/23 10:52 BP 115/56 04/03/23 10:52 Pulse Ox 86 L 04/03/23 10:54 FiO2 Intake & Output 04/02/23 04/03/23 04/03/23 18:59 06:59 18:59 Intake Total 482 Output Total 650 600 200 Balance -650 -600 282 Weight 79.379 kg Intake: IV 20 Invasive Line 1 10 Invasive Line 2 10 Oral 462 Output: Urine 650 600 200 Uretheral (Riley) 325 200 Other: Voiding Method Indwelling Catheter Indwelling Catheter - Exam GENERAL EXAM: Alert, 87-year-old male, fatigued, on 2 L nasal cannula, comfortable in no apparent distress. HEAD: Normocephalic and atraumatic EYES: Normal reaction of pupils, equal size. NOSE: Clear with pink turbinates. THROAT: Mild erythema, no exudates NECK: No masses, no JVD. CHEST: No chest wall deformity. LUNGS: Equal air entry with right basilar inspiratory crackles and diminished left basilar lung sounds. No conversational dyspnea. CVS: S1 and S2 normal with no audible murmur, regular rhythm. No extra heart sounds ABDOMEN: No hepatosplenomegaly, active bowel sounds, no guarding or rigidity. SPINE: No scoliosis or deformity SKIN: No rashes CENTRAL NERVOUS SYSTEM: No focal deficits, tone is normal in all 4 extremities. EXTREMITIES: There is moderate bilateral lower extremity nonpitting edema. No clubbing, or cyanosis. Peripheral pulses are intact. - Labs CBC & Chem 7: 04/03/23 10:45 04/03/23 10:45 Labs: Abnormal Lab Results - Last 24 Hours (Table) 04/02/23 04/02/23 04/03/23 Range/Units 06:15 17:56 10:45 RBC 2.58 L (4.30-5.90) m/uL Hgb 8.1 L D (13.0-17.5) gm/dL Hct 25.4 L (39.0-53.0) % RDW 18.9 H (11.5-15.5) % Plt Count 127 L (150-450) k/uL Lymphocytes # 0.6 L (1.0-4.8) k/uL Potassium 6.2 H* 5.6 H (3.5-5.1) mmol/L BUN (9-20) mg/dL Creatinine (0.66-1.25) mg/dL Glucose (74-99) mg/dL Albumin (3.5-5.0) g/dL 04/03/23 Range/Units 10:45 RBC (4.30-5.90) m/uL Hgb (13.0-17.5) gm/dL Hct (39.0-53.0) % RDW (11.5-15.5) % Plt Count (150-450) k/uL Lymphocytes # (1.0-4.8) k/uL Potassium (3.5-5.1) mmol/L BUN 89 H (9-20) mg/dL Creatinine 4.02 H (0.66-1.25) mg/dL Glucose 118 H (74-99) mg/dL Albumin 3.4 L (3.5-5.0) g/dL Assessment and Plan Assessment: Acute hypoxemic respiratory failure, secondary to acute systolic CHF exacerbation and fluid overload. Chest x-ray shows cardiomegaly, pulmonary vascular congestion, and interstitial edema. Patient also has moderate to large left-sided pleural effusion and a small right pleural effusion. NT proBNP was elevated at 57,800. Acute on chronic kidney disease Severe hyperkalemia, improving Lactic acidosis, improved Chronic obstructive pulmonary disease, stable History of paroxysmal atrial fibrillation, anticoagulated on Eliquis, currently normal sinus Benign prostatic hyperplasia Anemia of chronic disease, patient reportedly received 1 unit PRBC at [facility] Plan: The patient was seen and evaluated Labs and medications reviewed Continued on IV diuretics No plans for thoracentesis at this point Titrate down the FiO2 as tolerated Nephrology following regarding kidney status Follow-up chest x-ray in a.m. We will continue to follow I have personally seen and examined the patient, performed the documentation and the assessment and plan as written. Number of minutes spent on the visit: 10.
[2023-04-03] MEDS: DARBEPOETIN ALFA 40 MCG/0.4 ML SYRINGE SQ SCH (14:35)
[2023-04-03] MEDS: FUROSEMIDE 10 MG/ML 10 ML VIAL IV SCH (20:30)
--- NOTE | 2023-04-04 07:09 | XR ---
EXAMINATION TYPE: XR chest 1V portable DATE OF EXAM: 04/04/2023 CLINICAL HISTORY: Difficulty breathing and pleural effusion progress study. TECHNIQUE: Single AP portable upright view of the chest is obtained. COMPARISON: Chest x-ray from 3 days earlier FINDINGS: Stable small right pleural effusion. Persistent cardiomegaly with atherosclerotic thoracic aorta. Persistent moderate to large left-sided pleural fluid collection. High riding right humeral h ead redemonstrated. Improved central vascular congestion noted. IMPRESSION: Cardiomegaly with moderate to large left-sided pleural fluid collection and small right p leural fluid collection redemonstrated. Underlying left lung mass or neoplasm not excluded. Follow-up advised.
--- NOTE | 2023-04-04 09:29 | P.PN ---
Subjective HISTORY OF PRESENT ILLNESS: This is an 87-year-old male patient of Dr. Rhodes with past medical history of permanent atrial fibrillation, hypertension, dyslipidemia, chronic systolic heart failure, valvular heart disease, chronic kidney disease, chronic anemia. We have been asked to evaluate the patient for CHF. Patient states he has had sudden onset of shortness of breath since Thursday slowly worsening. He states he is taking all of his medications as directed. He is seen today in the emergency center waiting for bed on the cardiac stepdown unit. He states he continues to have some shortness of breath and dry mouth. Patient has has had multiple medication administrations for hyperkalemia managed by nephrology. He is status post IV Lasix 60 mg times once followed by 40 mg times once. Pulmonary medicine following and planning for possible thoracentesis. EKG atrial fibrillation with left bundle branch block Chest x-ray: Cardiomegaly, pulmonary vascular congestion, diffuse interstitial opacities concerning for pulmonary edema. Small right and moderate left lateral effusion. Left basilar airspace disease atelectasis or pneumonia. Chest ultrasound revealed left pleural effusion 8.3 cm pocket. WBC 8.4, hemoglobin 10.7, platelet count 121. INR 1.2. Sodium 138. Initial potassium 8.4 followed by 5.6 and 6.2. BUN 89 creatinine 3.67. Blood sugar 121. Initial lactic acid 3.8 followed by 1.6. Troponin negative x 1. proBNP 57,800. Liver function test within normal limits. Magnesium 2.3. Urinalysis negative for infection. Group A strep not detected. Home cardiac medications: Amlodipine 5 mg daily, Eliquis 2.5 mg twice daily, Lasix 20 mg daily, hydralazine 25 mg twice daily, lovastatin 20 mg at bedtime. Echocardiogram performed on 08/29/2022 revealed EF of 45%, mild to moderate mitral regurgitation. 04/03 Patient is seen today in follow-up and remains in the ER waiting for a bed on the cardiac stepdown unit. Repeat blood work reveals potassium of 5.6, BUN 87 creatinine 3.73. Patient is followed by nephrology. Echocardiogram reveals EF of 30 to 35%, severe biatrial enlargement, moderate mitral rotation. Decreased aortic valve leaflet excursion likely moderate aortic stenosis. Moderate tricuspid regurgitation. Pleural effusion noted. 04/04/2023 Patient examined this morning at the bedside. Patient denies any chest pain or pressure. He denies shortness of breath. He remains on IV Lasix twice a day. No plans for thoracentesis per pulmonary medicine. Patient has been resumed on Eliquis. Vital signs are stable. Blood pressure 114/57. PHYSICAL EXAM: VITAL SIGNS: Reviewed. GENERAL: Well-developed in no acute distress. NECK: Supple. No JVD or thyromegaly LUNGS: Respirations even and unlabored. Lungs essentially clear to auscultation bilaterally. HEART: Irregular rate and rhythm. S1 and S2 heard. Systolic murmur noted. EXTREMITIES: Normal range of motion. No clubbing or cyanosis. Peripheral pulses intact. Trace lower extremity edema ASSESSMENT: Acute on chronic systolic heart failure Pleural effusion Acute kidney injury and chronic kidney disease Severe hyperkalemia Permanent atrial fibrillation on Eliquis Hypertension Dyslipidemia Valvular heart disease with moderate mitral regurgitation Chronic anemia PLAN: Continue current cardiac medications Recommend transition of diuretics to oral. Will defer to nephrology as they have been managing diuretic therapy Daily weights, accurate I&O, and monitoring of kidney function Further recommendations pending patient course Nurse practitioner note has been reviewed by physician. Signing provider agrees with the documented findings, assessment, and plan of care documented by DIETARY COOK as a scribe. Objective - Vital Signs Vital signs: Vital Signs Temp 97.6 F 04/04/23 07:19 Pulse 76 04/04/23 08:54 Resp 20 04/04/23 07:19 BP 114/57 04/04/23 07:19 Pulse Ox 97 04/04/23 08:40 FiO2 Intake & Output 04/03/23 04/04/23 04/04/23 18:59 06:59 18:59 Intake Total 722 Output Total 200 1500 Balance 522 -1500 Intake: IV 20 Invasive Line 1 10 Invasive Line 2 10 Oral 702 Output: Urine 200 1500 Uretheral (Riley) 200 Other: Voiding Method Indwelling Catheter Indwelling Catheter # Bowel Movements 1 - Labs CBC & Chem 7: 04/03/23 10:45 04/03/23 10:45 Labs: Abnormal Lab Results - Last 24 Hours (Table) 04/03/23 04/03/23 Range/Units 10:45 10:45 RBC 2.58 L (4.30-5.90) m/uL Hgb 8.1 L D (13.0-17.5) gm/dL Hct 25.4 L (39.0-53.0) % RDW 18.9 H (11.5-15.5) % Plt Count 127 L (150-450) k/uL Lymphocytes # 0.6 L (1.0-4.8) k/uL BUN 89 H (9-20) mg/dL Creatinine 4.02 H (0.66-1.25) mg/dL Glucose 118 H (74-99) mg/dL Albumin 3.4 L (3.5-5.0) g/dL
[2023-04-04 10:34] LABS: HCT 24.5 % (39.6-50.0); HGB 7.8 g/dL (13.0-17.0); MCH 30.6 pg (27.0-32.0); MCHC 31.8 g/dL (32.0-37.0); MCV 96.1 FL (80.0-97.0); Mean Platelet Volume 12.4 FL (9.5-12.2); NRBC Per 100 WBC 0 X 10*3/uL (0.00-0.01); Platelet Count 140 X 10*3/uL (140-440); RBC 2.55 X 10*6/uL (4.40-5.60); RDW 17.6 % (11.5-14.5); WBC 9.01 X 10*3/uL (4.50-10.00)
[2023-04-04 10:48] LABS: ALT 20 U/L (10-49); AST 11 U/L (14-35); Albumin 3.4 g/dL (3.8-4.9); Albumin/Globulin Ratio 1.26 Ratio (1.60-3.17); Alkaline Phosphatase 75 U/L (41-126); BUN/Creat Ratio 21.37 Ratio (12.00-20.00); Blood Urea Nitrogen 87.6 mg/dL (9.0-27.0); Calcium 9.2 mg/dL (8.7-10.3); Carbon Dioxide 28.1 mmol/L (21.6-31.8); Chloride 98 mmol/L (96-109); Globulin 2.7 g/dL (1.6-3.3); Glucose 88 mg/dL (70-110); Magnesium 2.3 mg/dL (1.5-2.4); Potassium 4.8 mmol/L (3.5-5.5); Sodium 140 mmol/L (135-145); Total Bilirubin 0.3 mg/dL (0.3-1.2); Total Protein 6.1 g/dL (6.2-8.2)
--- NOTE | 2023-04-04 11:12 | US ---
EXAMINATION TYPE: US chest DATE OF EXAM: 04/04/2023 COMPARISON: Chest x-ray earlier today CLINICAL INDICATION: Male, 87 years old with history of Markings for thoracentesis by pulmonary staff ; Pleural effusion TECHNIQUE: Targeted ultrasound of the posterior lower bilateral hemithoraces EXAM MEASUREMENTS: Right Pleural Effusion pocket size: 11.9 cm Right skin surface to fluid distance: 3.0 cm Left Pleural Effusion pocket size: 10.8 cm Left skin surface to fluid distance: 2.9 cm Right side marked for possible thoracentesis outside the dept. Left side marked for possible thoracentesis outside the dept. Pulmonologists are able to review the images in the patient?s EMR. Moderate to large size bilateral pleural effusions on ultrasound, left-sided effusion correlates with same day x-ray. Right-sided effusion is more prominent than expected on today's x-ray. IMPRESSIONS: As above.
--- NOTE | 2023-04-04 13:29 | P.PN ---
Subjective Progress Note Date: 04/04/23 Patient is a 87-year-old white male with past medical history significant for chronic kidney disease, congestive heart failure, atrial fibrillation anticoagulated on Eliquis, hyperlipidemia, COPD, and BPH, who was transferred from [facility] for severe hyperkalemia and acute kidney injury. Filiberto gomes has been complaining of shortness of breath and weakness for a few days. Patient also complaining of sore throat. Patient weakness and shortness of breath progressed so he eventually presented to [facility] where he was evaluated, patient was found to have elevated potassium levels of 8.4, patient was given hyperkalemia protocol and received sodium bicarb, Lokelma, insulin and dextrose. Chest x-ray done showed large left pleural effusion small right pleural effusion, patient was transferred to [facility]. Patient has been complaining of shortness of breath on exertion and rest. Denies any chest pain. There is complaint of swelling of lower extremities. Patient complaining of nonproductive cough. Denies any fevers or chills Patient admitted to internal medicine service 04/03. Patient seen and examined. 2D echo done showed LVEF of 35% with global hypokinesis, severe biatrial enlargement, moderate mitral regurg, severe aortic stenosis. 04/04. Patient seen and examined. States breathing is improving, still gets short of breath on exertion. REVIEW OF SYSTEMS: CONSTITUTIONAL: No fever, no malaise,. CARDIOVASCULAR: No chest pain, no palpitations, no syncope. PULMONARY: As mentioned above GASTROINTESTINAL: No diarrhea, no nausea, no vomiting, no abdominal pain. NEUROLOGICAL: No headaches, no weakness, PHYSICAL EXAMINATION: GENERAL: The patient is alert and oriented x3, not in any acute distress. Well developed, well nourished. HEENT: Pupils are round and equally reacting to light. EOMI. No scleral icterus. No conjunctival pallor. Normocephalic, atraumatic. No pharyngeal erythema. No thyromegaly. CARDIOVASCULAR: S1 and S2 present. No murmurs, rubs, or gallops. PULMONARY: Chest is clear to auscultation, no wheezing or crackles. ABDOMEN: Soft, nontender, nondistended, normoactive bowel sounds. No palpable organomegaly. MUSCULOSKELETAL: No joint swelling or deformity. EXTREMITIES: No cyanosis, clubbing, or pedal edema. NEUROLOGICAL: Gross neurological examination did not reveal any focal deficits. SKIN: No rashes. Assessment and plan Hyperkalemia Acute hypoxic respiratory failure Acute on chronic kidney disease Acute on chronic systolic CHF History paroxysmal A-fib COPD Lactic acidosis Bilateral pleural effusion aortic stenosis Monitor vital signs Monitor CBC Monitor CMP Continue telemetry monitoring 2D echo done showed LVEF of 35% with global hypokinesis, severe biatrial enlargement, moderate mitral regurg, severe aortic stenosis. Avoid nephrotoxic agents Continue breathing treatment Continue IV Lasix 60 mg every 12 Continue Eliquis Nephrology following Pulmonology following, Cardiology following Labs and medication were reviewed.. Continue same treatment. Continue with symptomatic treatment. Resume home medication. Monitor labs and vitals. DVT and GI prophylaxis. Further recommendations as per clinical course of the patient Dictation was produced using [employer] dictation software. please excuse any grammatical, word or spelling errors. Objective - Vital Signs Vital signs: Vital Signs Temp 97.6 F 04/04/23 07:19 Pulse 76 04/04/23 08:54 Resp 20 04/04/23 07:19 BP 114/57 04/04/23 07:19 Pulse Ox 97 04/04/23 08:40 FiO2 Intake & Output 04/03/23 04/04/23 04/04/23 18:59 06:59 18:59 Intake Total 722 Output Total 200 1500 Balance 522 -1500 Intake: IV 20 Invasive Line 1 10 Invasive Line 2 10 Oral 702 Output: Urine 200 1500 Uretheral (Riley) 200 Other: Voiding Method Indwelling Catheter Indwelling Catheter Indwelling Catheter # Bowel Movements 1 - Labs CBC & Chem 7: 04/04/23 06:03 04/04/23 06:03 Labs: Abnormal Lab Results - Last 24 Hours (Table) 04/04/23 04/04/23 Range/Units 06:03 06:03 RBC 2.55 L (4.40-5.60) X 10*6/uL Hgb 7.8 L (13.0-17.0) g/dL Hct 24.5 L (39.6-50.0) % MCHC 31.8 L (32.0-37.0) g/dL RDW 17.6 H (11.5-14.5) % MPV 12.4 H (9.5-12.2) FL Anion Gap 13.90 H (4.00-12.00) mmol/L BUN 87.6 H (9.0-27.0) mg/dL Creatinine 4.1 H (0.6-1.5) mg/dL Est GFR (CKD-EPI) 13 L (>=60) BUN/Creatinine Ratio 21.37 H (12.00-20.00) Ratio AST 11 L (14-35) U/L Total Protein 6.1 L (6.2-8.2) g/dL Albumin 3.4 L (3.8-4.9) g/dL Albumin/Globulin Ratio 1.26 L (1.60-3.17) Ratio
--- NOTE | 2023-04-04 13:57 | P.PN ---
Subjective Progress Note Date: 04/04/23 I am seeing this patient in consultation today 04/02/2023 for dyspnea and left- sided pleural effusion. He is currently in the emergency room. He was transferred from [facility] late last night for severe hyperkalemia and acute kidney injury. Patient is a 87-year-old white male with past medical history significant for chronic kidney disease, congestive heart failure, atrial fibrillation anticoagulated on Eliquis, hyperlipidemia, COPD, and BPH. Patient is technically a poor historian. Apparently, he is complaining of shortness of breath, weakness and sore throat over the last several days. This progressively worsened, and he went into [facility] to be evaluated. Patient was found to be severely hyperkalemic. He was also found to be anemic and was transfused 1 unit PRBC. He was transferred to [facility]. Patient is currently resting in bed, on 2 L/min nasal cannula, in no acute distress. He is weak and cannot sit up in bed without assistance. Becomes short of breath with any kind of activity. He denies any chest pain, heart palpitations, or syncopal events. He does have bilateral lower extremity swelling. He has an occasional nonproductive cough. Denies any sputum production, fevers. Chest x-ray on arrival shows cardiomegaly, pulmonary vascu lar congestion, and interstitial edema. There is a moderate to large left-sided pleural effusion and small right pleural effusion.. Patient was given 60 mg of IV Lasix. A Riley catheter was inserted, and the patient has approximately 800 mL of concentrated urine. Patient states that earlier in the week he has had troubles urinating. He voids about 2-3 times per day. Endorses dysuria. Denies any hematuria, urinary frequency. Urinalysis on arrival not concerning for UTI. Trace protein. He does have baseline chronic kidney disease. Ultrasound of the abdomen and bladder did not show any hydronephrosis. Potassium level on arrival was elevated at 8.4 and is down to 5 point 3:06 amp sodium bicarb, 10 g Lokelma, 10 units insulin, 2 A D50 W, calcium gluconate, and the above-mentioned Lasix. Nephrology has been consulted. There is D5W with 3 amp sodium bicarb infusing at 50 MLS per hour. BMP on arrival has a sodium 138, testing 8.4, chloride 108, serum bicarb 18, BUN 74, creatinine 3.68, and glucose 85. Lactic acid level was 3.8 on arrival and is down to 1.6. Troponin less daniel n 0.012. NT proBNP 57,800. ECG shows normal sinus rhythm with chronic left bundle branch block without any obvious hyperkalemic changes. CBC on arrival: WBC count 8.4, hemoglobin 10.7, hematocrit 34, platelets 121. Group A strep negative. No signs of bleeding. Patient has chronic anemia. Patient denies any acute blood loss. No bloody bowel movements, melena, hematemesis. No abdominal pain or diarrhea. Vital signs are stable. The patient is seen today April 03, 2023 in follow-up in the emergency department. He is currently sitting up on the stretcher. Awake and alert in no acute distress. He is breathing a bit easier today compared to yesterday. He states he is about 50% better. He is still somewhat bronchospastic and wheezing. White count 8.6. Hemoglobin 8.1. Platelets 127. Sodium 139. Potassium 5.0. BUN 89. Creatinine 4.02. Glucose 118. He is continued on IV diuretics. Anticoagulated with Eliquis. Continued on bronchodilators. Currently in a -1.2 L balance. Making good urine. The patient is seen today April 04, 2023 in follow-up on the regular medical floor. He is awake and alert in no acute distress. Resting fairly comfortably in bed. Denies any worsening shortness of breath, cough or congestion. He is maintaining O2 saturation in the 90s on 2 L/min per nasal cannula. Chest x-ray does reveal increasing left pleural effusion and a right-sided pleural effusion. Echocardiogram confirms a right-sided pleural effusion measuring 11.9 cm, left- sided pleural effusion at 10.8 cm. The patient is currently on Eliquis this will be placed on hold for possible left-sided thoracentesis tomorrow. Count 9.0. Hemoglobin 7.8. Platelets 140. Sodium 140. Potassium 4.8. Bicarb 28. BUN 87. Creatinine 4.1. Glucose 88. He remains on Lasix 60 mg IV twice a day. Currently net -1.5 L balance Objective - Vital Signs Vital signs: Vital Signs Temp 97.6 F 04/04/23 07:19 Pulse 76 02/17/24 08:54 Resp 20 04/04/23 07:19 BP 114/57 04/04/23 07:19 Pulse Ox 97 04/04/23 08:40 FiO2 Intake & Output 04/03/23 04/04/23 04/04/23 18:59 06:59 18:59 Intake Total 722 Output Total 200 1500 Balance 522 -1500 Intake: IV 20 Invasive Line 1 10 Invasive Line 2 10 Oral 702 Output: Urine 200 1500 Uretheral (Riley) 200 Other: Voiding Method Indwelling Catheter Indwelling Catheter Indwelling Catheter # Bowel Movements 1 - Exam GENERAL EXAM: Alert, 87-year-old male, sitting comfortably in bed, on 2 L nasal cannula, in no apparent distress. HEAD: Normocephalic and atraumatic EYES: Normal reaction of pupils, equal size. NOSE: Clear with pink turbinates. THROAT: Mild erythema, no exudates NECK: No masses, no JVD. CHEST: No chest wall deformity. LUNGS: Equal air entry with right basilar inspiratory crackles and diminished left basilar lung sounds. No conversational dyspnea. CVS: S1 and S2 normal with no audible murmur, regular rhythm. No extra heart sounds ABDOMEN: No hepatosplenomegaly, active bowel sounds, no guarding or rigidity. SPINE: No scoliosis or deformity SKIN: No rashes CENTRAL NERVOUS SYSTEM: No focal deficits, tone is normal in all 4 extremities. EXTREMITIES: There is moderate bilateral lower extremity nonpitting edema. No clubbing, or cyanosis. Peripheral pulses are intact. - Labs CBC & Chem 7: 04/04/23 06:03 04/04/23 06:03 Labs: Abnormal Lab Results - Last 24 Hours (Table) 04/04/23 04/04/23 Range/Units 06:03 06:03 RBC 2.55 L (4.40-5.60) X 10*6/uL Hgb 7.8 L (13.0-17.0) g/dL Hct 24.5 L (39.6-50.0) % MCHC 31.8 L (32.0-37.0) g/dL RDW 17.6 H (11.5-14.5) % MPV 12.4 H (9.5-12.2) FL Anion Gap 13.90 H (4.00-12.00) mmol/L BUN 87.6 H (9.0-27.0) mg/dL Creatinine 4.1 H (0.6-1.5) mg/dL Est GFR (CKD-EPI) 13 L (>=60) BUN/Creatinine Ratio 21.37 H (12.00-20.00) Ratio AST 11 L (14-35) U/L Total Protein 6.1 L (6.2-8.2) g/dL Albumin 3.4 L (3.8-4.9) g/dL Albumin/Globulin Ratio 1.26 L (1.60-3.17) Ratio Assessment and Plan Assessment: Acute hypoxemic respiratory failure, secondary to acute systolic CHF exacer bation and fluid overload. Chest x-ray shows cardiomegaly, pulmonary vascular congestion, and interstitial edema. Patient also has moderate to large left- sided pleural effusion and a small right pleural effusion. NT proBNP was elevated at 57,800. Acute on chronic kidney disease Severe hyperkalemia, improving Lactic acidosis, improved Chronic obstructive pulmonary disease, stable History of paroxysmal atrial fibrillation, anticoagulated on Eliquis, currently normal sinus Benign prostatic hyperplasia Anemia of chronic disease, patient reportedly received 1 unit PRBC at [facility] Plan: The patient was seen and evaluated Chest x-ray, ultrasound, labs and medications reviewed Continued on IV diuretics Hold Eliquis Will plan for left-sided thoracentesis tomorrow Titrate down the FiO2 as tolerated Nephrology following We will continue to follow I have personally seen and examined the patient, performed the documentation and the assessment and plan as written. Number of minutes spent on the visit: 10.
--- NOTE | 2023-04-04 15:31 | P.PN ---
Subjective Progress Note Date: 04/04/23 Patient is seen in follow-up for acute kidney injury on chronic kidney disease. On IV Lasix. Urine output remains good last 24 hours. On nasal cannula. Denies chest pain or shortness of breath. Edema improving. Planning for thoracentesis on Thursday. Vital signs are stable. General: No acute distress. HEENT: Head exam is unremarkable. LUNGS: No acute distress. HEART: Rate and Rhythm are regular. ABDOMEN: Nontender. EXTREMITITES: No edema. Objective - Vital Signs Vital signs: Vital Signs Temp 97.6 F 04/04/23 07:19 Pulse 76 04/04/23 08:54 Resp 20 04/04/23 07:19 BP 114/57 04/04/23 07:19 Pulse Ox 97 04/04/23 08:40 FiO2 Intake & Output 04/03/23 04/04/23 04/04/23 18:59 06:59 18:59 Intake Total 722 Output Total 200 1500 Balance 522 -1500 Intake: IV 20 Invasive Line 1 10 Invasive Line 2 10 Oral 702 Output: Urine 200 1500 Uretheral (Riley) 200 Other: Voiding Method Indwelling Catheter Indwelling Catheter Indwelling Catheter # Bowel Movements 1 - Labs CBC & Chem 7: 04/04/23 06:03 04/04/23 06:03 Labs: Abnormal Lab Results - Last 24 Hours (Table) 04/03/23 04/04/23 04/04/23 Range/Units 10:45 06:03 06:03 RBC 2.55 L (4.40-5.60) X 10*6/uL Hgb 7.8 L (13.0-17.0) g/dL Hct 24.5 L (39.6-50.0) % MCHC 31.8 L (32.0-37.0) g/dL RDW 17.6 H (11.5-14.5) % MPV 12.4 H (9.5-12.2) FL Anion Gap 13.90 H (4.00-12.00) mmol/L BUN 89 H 87.6 H (9-20) mg/dL Creatinine 4.02 H 4.1 H (0.66-1.25) mg/dL Est GFR (CKD-EPI) 13 L (>=60) BUN/Creatinine Ratio 21.37 H (12.00-20.00) Ratio Glucose 118 H (74-99) mg/dL AST 11 L (14-35) U/L Total Protein 6.1 L (6.2-8.2) g/dL Albumin 3.4 L 3.4 L (3.5-5.0) g/dL Albumin/Globulin Ratio 1.26 L (1.60-3.17) Ratio Assessment and Plan Plan: Assessment: 1. Acute kidney injury secondary to ATN secondary to anemia and urinary retention. Renal function worse from diuresis. Creatinine stable at 4.1 today. No hydronephrosis noted on kidney ultrasound. 2. Chronic kidney disease stage IV with baseline creatinine near 3 secondary to nephrosclerosis and obstructive uropathy. 3. Hyperkalemia secondary to acute kidney injury, acidosis and urinary retention. Improved with medical management. 4. Volume overload with pleural effusions. 5. Acute blood loss anemia status post blood transfusion this admission. 6. Acute on chronic systolic CHF ejection fraction of 30 to 35% with moderate mitral and tricuspid regurgitation. 7. Metabolic acidosis secondary to acute kidney injury improved with bicarb drip. 8. Urinary retention status post Riley catheter placement. On Flomax. Plan: Maintain IV Lasix. 60 mg IV twice daily. Edema improving, may consider deescalating Lasix soon. Avoid nephrotoxins. Continue to monitor renal function and urine output. Add Aranesp. Continue to assess daily for need for renal replacement therapy. No urgency at this time.
[2023-04-04 20:10] LABS: Glucose,Whole Blood 129 mg/dL (70-110)
--- NOTE | 2023-04-05 09:08 | P.PN ---
Subjective HISTORY OF PRESENT ILLNESS: This is an 87-year-old male patient of Dr. Rhodes with past medical history of permanent atrial fibrillation, hypertension, dyslipidemia, chronic systolic heart failure, valvular heart disease, chronic kidney disease, chronic anemia. We have been asked to evaluate the patient for CHF. Patient states he has had sudden onset of shortness of breath since Thursday slowly worsening. He states he is taking all of his medications as directed. He is seen today in the emergency center waiting for bed on the cardiac stepdown unit. He states he continues to have some shortness of breath and dry mouth. Patient has has had multiple medication administrations for hyperkalemia managed by nephrology. He is status post IV Lasix 60 mg times once followed by 40 mg times once. Pulmonary medicine following and planning for possible thoracentesis. EKG atrial fibrillation with left bundle branch block Chest x-ray: Cardiomegaly, pulmonary vascular congestion, diffuse interstitial opacities concerning for pulmonary edema. Small right and moderate left lateral effusion. Left basilar airspace disease atelectasis or pneumonia. Chest ultrasound revealed left pleural effusion 8.3 cm pocket. WBC 8.4, hemoglobin 10.7, platelet count 121. INR 1.2. Sodium 138. Initial potassium 8.4 followed by 5.6 and 6.2. BUN 89 creatinine 3.67. Blood sugar 121. Initial lactic acid 3.8 followed by 1.6. Troponin negative x 1. proBNP 57,800. Liver function test within normal limits. Magnesium 2.3. Urinalysis negative for infection. Group A strep not detected. Home cardiac medications: Amlodipine 5 mg daily, Eliquis 2.5 mg twice daily, Lasix 20 mg daily, hydralazine 25 mg twice daily, lovastatin 20 mg at bedtime. Echocardiogram performed on 08/29/2022 revealed EF of 45%, mild to moderate mitral regurgitation. 04/03 Patient is seen today in follow-up and remains in the ER waiting for a bed on the cardiac stepdown unit. Repeat blood work reveals potassium of 5.6, BUN 87 creatinine 3.73. Patient is followed by nephrology. Echocardiogram reveals EF of 30 to 35%, severe biatrial enlargement, moderate mitral rotation. Decreased aortic valve leaflet excursion likely moderate aortic stenosis. Moderate tricuspid regurgitation. Pleural effusion noted. 04/04/2023 Patient examined this morning at the bedside. Patient denies any chest pain or pressure. He denies shortness of breath. He remains on IV Lasix twice a day. No plans for thoracentesis per pulmonary medicine. Patient has been resumed on Eliquis. Vital signs are stable. Blood pressure 114/57. 04/05/2023 Patient examined this morning at the bedside. Patient does report feeling somewhat more short of breath today in comparison to yesterday. He denies any chest pain or pressure. He remains on IV diuretics. Patient's Eliquis has been placed on hold. Plan is for possible thoracentesis today with pulmonary medicine PHYSICAL EXAM: VITAL SIGNS: Reviewed. GENERAL: Well-developed in no acute distress. NECK: Supple. No JVD or thyromegaly LUNGS: Respirations even and unlabored. Lungs with rhonchi throughout HEART: Irregular rate and rhythm. S1 and S2 heard. Systolic murmur noted. EXTREMITIES: Normal range of motion. No clubbing or cyanosis. Peripheral pulses intact. Trace lower extremity edema ASSESSMENT: Acute on chronic systolic heart failure Pleural effusion Acute kidney injury and chronic kidney disease Severe hyperkalemia Permanent atrial fibrillation on Eliquis Hypertension Dyslipidemia Valvular heart disease with moderate mitral regurgitation Chronic anemia PLAN: Continue current cardiac medications Continue IV Lasix Daily weights, accurate I&O, and monitoring of kidney function Patient's Eliquis has been placed on hold. Plan is for possible thoracentesis with pulmonary medicine Further recommendations pending patient course Nurse practitioner note has been reviewed by physician. Signing provider agrees with the documented findings, assessment, and plan of care documented by DIRECTOR METABOLISM as a scribe. Objective - Vital Signs Vital signs: Vital Signs Temp 98.6 F 04/05/23 00:55 Pulse 82 04/05/23 00:55 Resp 18 04/05/23 00:55 BP 125/59 04/05/23 00:55 Pulse Ox 97 04/05/23 00:55 FiO2 Intake & Output 04/04/23 04/05/23 04/05/23 18:59 06:59 18:59 Output Total 2200 600 Balance -2200 -600 Weight 79.379 kg 74.5 kg Output: Urine 2200 600 Other: Voiding Method Indwelling Catheter Indwelling Catheter # Voids 1 - Labs CBC & Chem 7: 04/04/23 06:03 04/04/23 06:03 Labs: Abnormal Lab Results - Last 24 Hours (Table) 04/04/23 04/04/23 04/04/23 Range/Units 06:03 06:03 20:09 RBC 2.55 L (4.40-5.60) X 10*6/uL Hgb 7.8 L (13.0-17.0) g/dL Hct 24.5 L (39.6-50.0) % MCHC 31.8 L (32.0-37.0) g/dL RDW 17.6 H (11.5-14.5) % MPV 12.4 H (9.5-12.2) FL Anion Gap 13.90 H (4.00-12.00) mmol/L BUN 87.6 H (9.0-27.0) mg/dL Creatinine 4.1 H (0.6-1.5) mg/dL Est GFR (CKD-EPI) 13 L (>=60) BUN/Creatinine Ratio 21.37 H (12.00-20.00) Ratio POC Glucose (mg/dL) 129 H (70-110) mg/dL AST 11 L (14-35) U/L Total Protein 6.1 L (6.2-8.2) g/dL Albumin 3.4 L (3.8-4.9) g/dL Albumin/Globulin Ratio 1.26 L (1.60-3.17) Ratio
--- NOTE | 2023-04-05 10:47 | XR ---
EXAMINATION TYPE: XR chest 1V portable DATE OF EXAM: 04/05/2023 10:37 AM CLINICAL INDICATION:Male, 87 years old with history of Post left thoracentesis; COMPARISON: Chest radiographs from 04/04/2023 TECHNIQUE: XR chest 1V portable Frontal view of the chest. FINDINGS: Lungs/Pleura: Decrease in left pleural effusion with persistent trace left pleural effusion. There is thin visceral pleural line thought to be identified suggesting pneumothorax. There is no evidence of right pleural effusion, focal consolidation, or right pneumothorax. Pulmonary vascularity: Pulmonary vascular congestion. Heart/mediastinum: Cardiomediastinal silhouette is enlarged and stable. Atherosclerotic calcificatio ns are seen in the aorta. Musculoskeletal: No acute osseous pathology. IMPRESSION: 1. Decrease in size of left pleural effusion , possible trace pneumothorax visualized in the lung ap ex. 2. Cardiomegaly and mild pulmonary vascular congestion. Correlate with BNP for congestive heart fail ure.
[2023-04-05 11:28] LABS: African American GFR (CKD) 15 (>60 ml/min/1.73 sqM); Anion Gap 8 mmol/L; Blood Urea Nitrogen 97 mg/dL (9-20); Calcium 8.9 mg/dL (8.4-10.2); Carbon Dioxide 31 mmol/L (22-30); Chloride 98 mmol/L (98-107); Glucose 101 mg/dL (74-99); LDH 120 U/L (120-246); Non-African American GFR(CKD) 13 (>60 ml/min/1.73 sqM); Potassium 4.1 mmol/L (3.5-5.1); Sodium 137 mmol/L (137-145)
--- NOTE | 2023-04-05 12:37 | P.PN ---
Subjective Progress Note Date: 04/05/23 Patient is seen in follow-up for acute kidney injury on chronic kidney disease. Patient had thoracentesis this morning and breathing is much improved after fluid removal. Vital signs are stable. General: No acute distress. HEENT: Head exam is unremarkable. LUNGS: Diminished breath sounds bilaterally HEART: Rate and Rhythm are regular. ABDOMEN: Nontender. EXTREMITITES: Improving LE edema. Objective - Vital Signs Vital signs: Vital Signs Temp 97.3 F L 04/05/23 07:45 Pulse 68 04/05/23 09:26 Resp 20 04/05/23 07:45 BP 130/57 04/05/23 07:45 Pulse Ox 99 04/05/23 07:45 FiO2 Intake & Output 04/04/23 04/05/23 04/05/23 18:59 06:59 18:59 Output Total 2200 600 1400 Balance -2200 -600 -1400 Weight 79.379 kg 74.5 kg Output: Urine 2200 600 1400 Other: Voiding Method Indwelling Catheter Indwelling Catheter Indwelling Catheter # Voids 1 - Labs CBC & Chem 7: 04/04/23 06:03 04/05/23 09:52 Labs: Abnormal Lab Results - Last 24 Hours (Table) 04/04/23 04/05/23 Range/Units 20:09 09:52 Carbon Dioxide 31 H (22-30) mmol/L BUN 97 H (9-20) mg/dL Creatinine 3.86 H (0.66-1.25) mg/dL Glucose 101 H (74-99) mg/dL POC Glucose (mg/dL) 129 H (70-110) mg/dL Total Protein 6.0 L (6.3-8.2) g/dL Assessment and Plan Plan: Assessment: 1. Acute kidney injury secondary to ATN secondary to anemia and urinary retention. Renal function worse from diuresis. Creatinine peaked at 4.1, improved 3.8 today. No hydronephrosis noted on kidney ultrasound. 2. Chronic kidney disease stage IV with baseline creatinine near 3 secondary to nephrosclerosis and obstructive uropathy. 3. Hyperkalemia secondary to acute kidney injury, acidosis and urinary retention. Improved with medical management. 4. Volume overload with pleural effusions. 5. Acute blood loss anemia status post blood transfusion this admission. 6. Acute on chronic systolic CHF ejection fraction of 30 to 35% with moderate mitral and tricuspid regurgitation. 7. Metabolic acidosis secondary to acute kidney injury improved with bicarb drip. 8. Urinary retention status post Riley catheter placement. On Flomax. Plan: Maintain IV Lasix 60 mg IV twice daily. Edema improving, may consider deescalating Lasix and next 24 hours. Avoid nephrotoxins. Continue to monitor renal function and urine output. Add Aranesp.
--- NOTE | 2023-04-05 12:45 | P.PN ---
Subjective Progress Note Date: 04/05/23 Patient is a 87-year-old white male with past medical history significant for chronic kidney disease, congestive heart failure, atrial fibrillation anticoagulated on Eliquis, hyperlipidemia, COPD, and BPH, who was transferred from [facility] for severe hyperkalemia and acute kidney injury. Filiberto gomes has been complaining of shortness of breath and weakness for a few days. Patient also complaining of sore throat. Patient weakness and shortness of breath progressed so he eventually presented to [facility] where he was evaluated, patient was found to have elevated potassium levels of 8.4, patient was given hyperkalemia protocol and received sodium bicarb, Lokelma, insulin and dextrose. Chest x-ray done showed large left pleural effusion small right pleural effusion, patient was transferred to [facility]. Patient has been complaining of shortness of breath on exertion and rest. Denies any chest pain. There is complaint of swelling of lower extremities. Patient complaining of nonproductive cough. Denies any fevers or chills Patient admitted to internal medicine service 04/03. Patient seen and examined. 2D echo done showed LVEF of 35% with global hypokinesis, severe biatrial enlargement, moderate mitral regurg, severe aortic stenosis. 04/04. Patient seen and examined. States breathing is improving, still gets short of breath on exertion. 04/05. Patient seen and examined. Patient being planned for thoracentesis this morning with pulmonary medicine. States breathing is improved. Denies any nausea or vomiting REVIEW OF SYSTEMS: CONSTITUTIONAL: No fever, no malaise,. CARDIOVASCULAR: No chest pain, no palpitations, no syncope. PULMONARY: As mentioned above GASTROINTESTINAL: No diarrhea, no nausea, no vomiting, no abdominal pain. NEUROLOGICAL: No headaches, no weakness, PHYSICAL EXAMINATION: GENERAL: The patient is alert and oriented x3, not in any acute distress. Well developed, well nourished. HEENT: Pupils are round and equally reacting to light. EOMI. No scleral icterus. No conjunctival pallor. Normocephalic, atraumatic. No pharyngeal erythema. No thyromegaly. CARDIOVASCULAR: S1 and S2 present. No murmurs, rubs, or gallops. PULMONARY: Coarse breath sound bilaterally, diminished at the bases, crackles audible ABDOMEN: Soft, nontender, nondistended, normoactive bowel sounds. No palpable organomegaly. MUSCULOSKELETAL: No joint swelling or deformity. EXTREMITIES: No cyanosis, clubbing, or pedal edema. NEUROLOGICAL: Gross neurological examination did not reveal any focal deficits. SKIN: No rashes. Assessment and plan Hyperkalemia Acute hypoxic respiratory failure Acute on chronic kidney disease Acute on chronic systolic CHF History paroxysmal A-fib COPD Lactic acidosis Bilateral pleural effusion aortic stenosis Monitor vital signs Monitor CBC Monitor CMP Continue telemetry monitoring 2D echo done showed LVEF of 35% with global hypokinesis, severe biatrial enlargement, moderate mitral regurg, severe aortic stenosis. Avoid nephrotoxic agents Continue breathing treatment Continue IV Lasix 60 mg every 12 Eliquis on hold, thoracentesis being planned for today Nephrology following Pulmonology following, Cardiology following Labs and medication were reviewed.. Continue same treatment. Continue with symptomatic treatment. Resume home medication. Monitor labs and vitals. DVT and GI prophylaxis. Further recommendations as per clinical course of the patient Dictation was produced using [employer] dictation software. please excuse any grammatical, word or spelling errors. Objective - Vital Signs Vital signs: Vital Signs Temp 98.6 F 04/05/23 00:55 Pulse 68 04/05/23 09:26 Resp 18 04/05/23 00:55 BP 125/59 04/05/23 00:55 Pulse Ox 97 04/05/23 00:55 FiO2 Intake & Output 04/04/23 04/05/23 04/05/23 18:59 06:59 18:59 Output Total 2200 600 Balance -2200 -600 Weight 79.379 kg 74.5 kg Output: Urine 2200 600 Other: Voiding Method Indwelling Catheter Indwelling Catheter # Voids 1 - Labs CBC & Chem 7: 04/04/23 06:03 04/05/23 09:52 Labs: Abnormal Lab Results - Last 24 Hours (Table) 04/04/23 04/04/23 04/04/23 Range/Units 06:03 06:03 20:09 RBC 2.55 L (4.40-5.60) X 10*6/uL Hgb 7.8 L (13.0-17.0) g/dL Hct 24.5 L (39.6-50.0) % MCHC 31.8 L (32.0-37.0) g/dL RDW 17.6 H (11.5-14.5) % MPV 12.4 H (9.5-12.2) FL Anion Gap 13.90 H (4.00-12.00) mmol/L BUN 87.6 H (9.0-27.0) mg/dL Creatinine 4.1 H (0.6-1.5) mg/dL Est GFR (CKD-EPI) 13 L (>=60) BUN/Creatinine Ratio 21.37 H (12.00-20.00) Ratio POC Glucose (mg/dL) 129 H (70-110) mg/dL AST 11 L (14-35) U/L Total Protein 6.1 L (6.2-8.2) g/dL Albumin 3.4 L (3.8-4.9) g/dL Albumin/Globulin Ratio 1.26 L (1.60-3.17) Ratio
--- NOTE | 2023-04-05 13:06 | XR ---
EXAMINATION TYPE: XR chest 1V portable DATE OF EXAM: 04/05/2023 12:54 PM CLINICAL INDICATION:Male, 87 years old with history of Questionable pneumothorax, left apex; [facility] COMPARISON: Chest same day TECHNIQUE: XR chest 1V portable Frontal view of the chest. FINDINGS: Lungs/Pleura: Left apical pneumothorax There is no evidence of pleural effusion, focal consolidation, or right pneumothorax. Pulmonary vascularity: Unremarkable. Heart/mediastinum: Cardiomediastinal silhouette is enlarged and stable. Atherosclerotic calcificatio ns are seen in the aorta. Musculoskeletal: No acute osseous pathology. IMPRESSION: Persistent visceral pleural line compatible with pneumothorax. Not significantly changed from prior.
--- NOTE | 2023-04-05 13:31 | OP ---
OPERATIVE REPORT DATE OF SERVICE : OPERATION: Left-sided thoracentesis. PREOPERATIVE DIAGNOSIS: Large left pleural effusion. POSTOPERATIVE DIAGNOSIS: Large left pleural effusion. ANESTHESIA USED: 2 mL of 1% lidocaine. DESCRIPTION OF PROCEDURE: The patient was placed in a sitting upright position, the area below the left scapula was prepared in a sterile fashion and drapes were applied. The fluid was earlier localized with ultrasound guidance and the marking was placed at the level of the 8th intercostal space and tip of the scapula. A 26-gauge needle was inserted after the area was locally anesthetized, advanced into the pleural space, and the fluid was localized with the needle. Then, a small tiny incision was made at the same site; and the needle was advanced into the pleural space; and as the fluid was obtained, the catheter was advanced over of the needle, and the needle was pulled out of the pleural space. Freely flowing fluid was removed, the fluid was nonbloody, was straw in color, and roughly 1400 mL of fluid drained from the left pleural space. The procedure was well tolerated, no complications was noted, chest x-ray postoperatively questioned a small tiny apical pneumothorax, we will have repeat chest x-ray in the next couple of hours to confirm whether this is truly a pneumothorax or just a missed reading on behalf of the radiologist. A repeat chest x-ray will be done in the next couple of hours. Again, procedure was well tolerated, no immediate complications, and the fluid was sent for different diagnostic studies. MMODL / IJN: [id number] /
--- NOTE | 2023-04-05 14:31 | P.PN ---
Subjective Progress Note Date: 04/05/23 I am seeing this patient in consultation today 04/02/2023 for dyspnea and left- sided pleural effusion. He is currently in the emergency room. He was transferred from [facility] late last night for severe hyperkalemia and acute kidney injury. Patient is a 87-year-old white male with past medical history significant for chronic kidney disease, congestive heart failure, atrial fibrillation anticoagulated on Eliquis, hyperlipidemia, COPD, and BPH. Patient is technically a poor historian. Apparently, he is complaining of shortness of breath, weakness and sore throat over the last several days. This progressively worsened, and he went into [facility] to be evaluated. Patient was found to be severely hyperkalemic. He was also found to be anemic and was transfused 1 unit PRBC. He was transferred to [facility]. Patient is currently resting in bed, on 2 L/min nasal cannula, in no acute distress. He is weak and cannot sit up in bed without assistance. Becomes short of breath with any kind of activity. He denies any chest pain, heart palpitations, or syncopal events. He does have bilateral lower extremity swelling. He has an occasional nonproductive cough. Denies any sputum production, fevers. Chest x-ray on arrival shows cardiomegaly, pulmonary vascu lar congestion, and interstitial edema. There is a moderate to large left-sided pleural effusion and small right pleural effusion.. Patient was given 60 mg of IV Lasix. A Riley catheter was inserted, and the patient has approximately 800 mL of concentrated urine. Patient states that earlier in the week he has had troubles urinating. He voids about 2-3 times per day. Endorses dysuria. Denies any hematuria, urinary frequency. Urinalysis on arrival not concerning for UTI. Trace protein. He does have baseline chronic kidney disease. Ultrasound of the abdomen and bladder did not show any hydronephrosis. Potassium level on arrival was elevated at 8.4 and is down to 5 point 3:06 amp sodium bicarb, 10 g Lokelma, 10 units insulin, 2 A D50 W, calcium gluconate, and the above-mentioned Lasix. Nephrology has been consulted. There is D5W with 3 amp sodium bicarb infusing at 50 MLS per hour. BMP on arrival has a sodium 138, testing 8.4, chloride 108, serum bicarb 18, BUN 74, creatinine 3.68, and glucose 85. Lactic acid level was 3.8 on arrival and is down to 1.6. Troponin less daniel n 0.012. NT proBNP 57,800. ECG shows normal sinus rhythm with chronic left bundle branch block without any obvious hyperkalemic changes. CBC on arrival: WBC count 8.4, hemoglobin 10.7, hematocrit 34, platelets 121. Group A strep negative. No signs of bleeding. Patient has chronic anemia. Patient denies any acute blood loss. No bloody bowel movements, melena, hematemesis. No abdominal pain or diarrhea. Vital signs are stable. The patient is seen today April 03, 2023 in follow-up in the emergency department. He is currently sitting up on the stretcher. Awake and alert in no acute distress. He is breathing a bit easier today compared to yesterday. He states he is about 50% better. He is still somewhat bronchospastic and wheezing. White count 8.6. Hemoglobin 8.1. Platelets 127. Sodium 139. Potassium 5.0. BUN 89. Creatinine 4.02. Glucose 118. He is continued on IV diuretics. Anticoagulated with Eliquis. Continued on bronchodilators. Currently in a -1.2 L balance. Making good urine. The patient is seen today April 04, 2023 in follow-up on the regular medical floor. He is awake and alert in no acute distress. Resting fairly comfortably in bed. Denies any worsening shortness of breath, cough or congestion. He is maintaining O2 saturation in the 90s on 2 L/min per nasal cannula. Chest x-ray does reveal increasing left pleural effusion and a right-sided pleural effusion. Echocardiogram confirms a right-sided pleural effusion measuring 11.9 cm, left- sided pleural effusion at 10.8 cm. The patient is currently on Eliquis this will be placed on hold for possible left-sided thoracentesis tomorrow. Count 9.0. Hemoglobin 7.8. Platelets 140. Sodium 140. Potassium 4.8. Bicarb 28. BUN 87. Creatinine 4.1. Glucose 88. He remains on Lasix 60 mg IV twice a day. Currently net -1.5 L balance The patient is seen today April 05, 2023 in follow-up on the regular medical floor. He is currently sitting up in bed. Awake and alert in no acute distress. He is maintaining O2 saturations in the 90s 2 L/min per nasal cannula. He is been afebrile. Hemodynamically stable. He did undergo a left- sided thoracentesis today with 1.4 L of straw-colored fluid removed. Fluid sent for analysis and cytology. Follow-up chest x-ray reveals a tiny left apical pneumothorax. Sodium 137. Potassium 4.1. Bicarb 31. BUN 97. Creatinine 3.86. Glucose 101. Remains on IV diuretics. Currently in a -2.8 L balance. Objective - Vital Signs Vital signs: Vital Signs Temp 97.3 F L 04/05/23 07:45 Pulse 68 04/05/23 09:26 Resp 20 04/05/23 07:45 BP 130/57 04/05/23 07:45 Pulse Ox 99 04/05/23 07:45 FiO2 Intake & Output 04/04/23 04/05/23 04/05/23 18:59 06:59 18:59 Output Total 2200 600 1400 Balance -2200 -600 -1400 Weight 79.379 kg 74.5 kg Output: Urine 2200 600 1400 Other: Voiding Method Indwelling Catheter Indwelling Catheter Indwelling Catheter # Voids 1 - Exam GENERAL EXAM: Alert, 87-year-old male, on 2 L nasal cannula, in no apparent distress. HEAD: Normocephalic and atraumatic EYES: Normal reaction of pupils, equal size. NOSE: Clear with pink turbinates. THROAT: Mild erythema, no exudates NECK: No masses, no JVD. CHEST: No chest wall deformity. LUNGS: Equal air entry with right basilar inspiratory crackles and diminished left basilar lung sounds. No conversational dyspnea. CVS: S1 and S2 normal with no audible murmur, regular rhythm. No extra heart sounds ABDOMEN: No hepatosplenomegaly, active bowel sounds, no guarding or rigidity. SPINE: No scoliosis or deformity SKIN: No rashes CENTRAL NERVOUS SYSTEM: No focal deficits, tone is normal in all 4 extremities. EXTREMITIES: There is moderate bilateral lower extremity nonpitting edema. No clubbing, or cyanosis. Peripheral pulses are intact. - Labs CBC & Chem 7: 04/04/23 06:03 04/05/23 09:52 Labs: Abnormal Lab Results - Last 24 Hours (Table) 04/04/23 04/05/23 Range/Units 20:09 09:52 Carbon Dioxide 31 H (22-30) mmol/L BUN 97 H (9-20) mg/dL Creatinine 3.86 H (0.66-1.25) mg/dL Glucose 101 H (74-99) mg/dL POC Glucose (mg/dL) 129 H (70-110) mg/dL Total Protein 6.0 L (6.3-8.2) g/dL Assessment and Plan Assessment: Acute hypoxemic respiratory failure, secondary to acute systolic CHF exacerbation and fluid overload. Chest x-ray shows cardiomegaly, pulmonary vascular congestion, and interstitial edema. Patient also has moderate to large left-sided pleural effusion and a small right pleural effusion. NT proBNP was elevated at 57,800. Status post left-sided thoracentesis today April 05, 2023 with 1.4 L of straw-colored fluid removed. Fluid analysis and cytology pending. Follow-up chest x-ray reveals a tiny left apical pneumothorax Acute on chronic kidney disease Severe hyperkalemia, improved Lactic acidosis, improved Chronic obstructive pulmonary disease, stable History of paroxysmal atrial fibrillation, anticoagulated on Eliquis, currently normal sinus Benign prostatic hyperplasia Anemia of chronic disease, patient reportedly received 1 unit PRBC at [facility] Plan: The patient was seen and evaluated Chest x-ray, labs and medications reviewed Left-sided thoracentesis with 1.4 L removed today Chest x-ray reveals a tiny left apical pneumothorax Follow-up chest x-ray in a.m. Continued on IV diuretics Titrate down the FiO2 as tolerated We will continue to follow I have personally seen and examined the patient, performed the documentation and the assessment and plan as written. Number of minutes spent on the visit: 10.
[2023-04-05] MEDS: ACETAMINOPHEN TAB 325 MG TAB PO PRN (21:24)
[2023-04-06 00:47] LABS: Appearance,BF Hazy (Clear)
[2023-04-06 09:07] LABS: HCT 24.3 % (39.6-50.0); HGB 7.7 g/dL (13.0-17.0); MCH 30.7 pg (27.0-32.0); MCHC 31.7 g/dL (32.0-37.0); MCV 96.8 FL (80.0-97.0); Mean Platelet Volume 12.1 FL (9.5-12.2); NRBC Per 100 WBC 0 X 10*3/uL (0.00-0.01); Platelet Count 139 X 10*3/uL (140-440); RBC 2.51 X 10*6/uL (4.40-5.60); RDW 16.5 % (11.5-14.5)
[2023-04-06 09:19] LABS: ALT 24 U/L (10-49); AST 19 U/L (14-35); Albumin 3.1 g/dL (3.8-4.9); Albumin/Globulin Ratio 1.24 Ratio (1.60-3.17); Alkaline Phosphatase 82 U/L (41-126); BUN/Creat Ratio 22.68 Ratio (12.00-20.00); Blood Urea Nitrogen 90.7 mg/dL (9.0-27.0); Calcium 8.9 mg/dL (8.7-10.3); Chloride 96 mmol/L (96-109); Globulin 2.5 g/dL (1.6-3.3); Glucose 85 mg/dL (70-110); Potassium 4.2 mmol/L (3.5-5.5); Sodium 139 mmol/L (135-145); Total Bilirubin 0.4 mg/dL (0.3-1.2); Total Protein 5.6 g/dL (6.2-8.2)
--- NOTE | 2023-04-06 09:27 | XR ---
EXAMINATION TYPE: XR chest 1V portable DATE OF EXAM: 04/06/2023 COMPARISON: 04/05/2023 HISTORY: Pleural effusion TECHNIQUE: Single frontal view of the chest is obtained. FINDINGS: Bilateral consolidation and small effusion. Atherosclerotic change aorta. Biapical pleural thickening. Diffuse osteopenia. Degenerative changes spine. Arthropathy of the shoulders. IMPRESSION: Bilateral infiltrate and small effusion stable.
--- NOTE | 2023-04-06 09:40 | P.PN ---
Subjective Progress Note Date: 04/06/23 HISTORY OF PRESENT ILLNESS: This is an 87-year-old male patient of Dr. Rhodes with past medical history of permanent atrial fibrillation, hypertension, dyslipidemia, chronic systolic heart failure, valvular heart disease, chronic kidney disease, chronic anemia. We have been asked to evaluate the patient for CHF. Patient states he has had sudden onset of shortness of breath since Thursday slowly worsening. He states he is taking all of his medications as directed. He is seen today in the emergency center waiting for bed on the cardiac stepdown unit. He states he continues to have some shortness of breath and dry mouth. Patient has has had multiple medication administrations for hyperkalemia managed by nephrology. He is status post IV Lasix 60 mg times once followed by 40 mg times once. Pulmonary medicine following and planning for possible thoracentesis. EKG atrial fibrillation with left bundle branch block Chest x-ray: Cardiomegaly, pulmonary vascular congestion, diffuse interstitial opacities concerning for pulmonary edema. Small right and moderate left lateral effusion. Left basilar airspace disease atelectasis or pneumonia. Chest ultrasound revealed left pleural effusion 8.3 cm pocket. WBC 8.4, hemoglobin 10.7, platelet count 121. INR 1.2. Sodium 138. Initial potassium 8.4 followed by 5.6 and 6.2. BUN 89 creatinine 3.67. Blood sugar 121. Initial lactic acid 3.8 followed by 1.6. Troponin negative x 1. proBNP 57,800. Liver function test within normal limits. Magnesium 2.3. Urinalysis negative for infection. Group A strep not detected. Home cardiac medications: Amlodipine 5 mg daily, Eliquis 2.5 mg twice daily, Lasix 20 mg daily, hydralazine 25 mg twice daily, lovastatin 20 mg at bedtime. Echocardiogram performed on 08/29/2022 revealed EF of 45%, mild to moderate mitral regurgitation. 04/03 Patient is seen today in follow-up and remains in the ER waiting for a bed on the cardiac stepdown unit. Repeat blood work reveals potassium of 5.6, BUN 87 creatinine 3.73. Patient is followed by nephrology. Echocardiogram reveals EF of 30 to 35%, severe biatrial enlargement, moderate mitral rotation. Decreased aortic valve leaflet excursion likely moderate a ortic stenosis. Moderate tricuspid regurgitation. Pleural effusion noted. 04/04/2023 Patient examined this morning at the bedside. Patient denies any chest pain or pressure. He denies shortness of breath. He remains on IV Lasix twice a day. No plans for thoracentesis per pulmonary medicine. Patient has been resumed on Eliquis. Vital signs are stable. Blood pressure 114/57. 04/05/2023 Patient examined this morning at the bedside. Patient does report feeling somewhat more short of breath today in comparison to yesterday. He denies any chest pain or pressure. He remains on IV diuretics. Patient's Eliquis has been placed on hold. Plan is for possible thoracentesis today with pulmonary medicine 04/06 Yesterday, patient underwent thoracentesis with removal of [address] Reddy. Cytology is pending. Chest x-ray showed a significant improvement yesterday but it appears that the pleural effusion is returning. Patient denies having any chest pain now. He states he has chronic shortness of breath on and off for a long period of time. He does feel a lot better since yesterday's thoracentesis. He continues to have cough decreasing wheezing. Blood pressure 117/52, heart rate 72, pulse ox 96% on 2 L nasal cannula. Repeat blood work reveals hemoglobin of 7.7, sodium 139, potassium 4.2, BUN 90 and creatinine 4. Patient is also followed by nephrology for acute kidney injury. Patient has been maintained on IV Lasix 60 mg twice daily. Patient had a negative fluid balance yesterday and today and -2750. Weight is trending down. PHYSICAL EXAM: VITAL SIGNS: Reviewed. GENERAL: Well-developed in no acute distress. NECK: Supple. No JVD or thyromegaly LUNGS: Respirations even and unlabored. Lungs diminished breath sounds. HEART: Irregular rate and rhythm. S1 and S2 heard. Systolic murmur noted. EXTREMITIES: Normal range of motion. No clubbing or cyanosis. Peripheral pulses intact. Trace lower extremity edema ASSESSMENT: Acute on chronic systolic heart failure Pleural effusion Acute kidney injury and chronic kidney disease Severe hyperkalemia Permanent atrial fibrillation on Eliquis Hypertension Dyslipidemia Valvular heart disease with moderate mitral regurgitation Chronic anemia PLAN: Continue current cardiac medications Continue IV Lasix Daily weights, accurate I&O, and monitoring of kidney function Patient's Eliquis has been placed on hold. He is status post pleurocentesis but will hold on resuming until cleared by pulmonary medicine. Further recommendations pending patient course Nurse practitioner note has been reviewed by physician. Signing provider agrees with the documented findings, assessment, and plan of care documented by [employer]INE[employer] as a scribe. Objective - Vital Signs Vital signs: Vital Signs Temp 98.2 F 04/06/23 07:50 Pulse 76 04/06/23 08:00 Resp 19 04/06/23 07:50 BP 117/52 04/06/23 07:50 Pulse Ox 95 04/06/23 07:46 FiO2 Intake & Output 04/05/23 04/06/23 04/06/23 18:59 06:59 18:59 Output Total 1900 850 Balance -1900 -850 Weight 62.5 kg Output: Urine 1900 850 Other: Voiding Method Indwelling Catheter Indwelling Catheter - Labs CBC & Chem 7: 04/06/23 05:42 04/06/23 05:42 Labs: Abnormal Lab Results - Last 24 Hours (Table) 04/05/23 04/05/23 Range/Units 09:52 10:00 Carbon Dioxide 31 H (22-30) mmol/L BUN 97 H (9-20) mg/dL Creatinine 3.86 H (0.66-1.25) mg/dL Glucose 101 H (74-99) mg/dL Total Protein 6.0 L (6.3-8.2) g/dL Fluid Appearance Hazy A (Clear)
[2023-04-06 09:49] LABS: Glucose, BF Source Pleural Fluid; Glucose, Body Fluid 101 mg/dL; LDH, Body Fluid Source Pleural Fluid; T. Protein, Body Fluid Source Pleural Fluid; Total Protein, Body Fluid 2620 mg/dL
--- NOTE | 2023-04-06 13:23 | P.PN ---
Subjective Progress Note Date: 04/06/23 I am seeing this patient in consultation today 04/02/2023 for dyspnea and left- sided pleural effusion. He is currently in the emergency room. He was transferred from [facility] late last night for severe hyperkalemia and acute kidney injury. Patient is a 87-year-old white male with past medical history significant for chronic kidney disease, congestive heart failure, atrial fibrillation anticoagulated on Eliquis, hyperlipidemia, COPD, and BPH. Patient is technically a poor historian. Apparently, he is complaining of shortness of breath, weakness and sore throat over the last several days. This progressively worsened, and he went into [facility] to be evaluated. Patient was found to be severely hyperkalemic. He was also found to be anemic and was transfused 1 unit PRBC. He was transferred to [facility]. Patient is currently resting in bed, on 2 L/min nasal cannula, in no acute distress. He is weak and cannot sit up in bed without assistance. Becomes short of breath with any kind of activity. He denies any chest pain, heart palpitations, or syncopal events. He does have bilateral lower extremity swelling. He has an occasional nonproductive cough. Denies any sputum production, fevers. Chest x-ray on arrival shows cardiomegaly, pulmonary vascu lar congestion, and interstitial edema. There is a moderate to large left-sided pleural effusion and small right pleural effusion.. Patient was given 60 mg of IV Lasix. A Riley catheter was inserted, and the patient has approximately 800 mL of concentrated urine. Patient states that earlier in the week he has had troubles urinating. He voids about 2-3 times per day. Endorses dysuria. Denies any hematuria, urinary frequency. Urinalysis on arrival not concerning for UTI. Trace protein. He does have baseline chronic kidney disease. Ultrasound of the abdomen and bladder did not show any hydronephrosis. Potassium level on arrival was elevated at 8.4 and is down to 5 point 3:06 amp sodium bicarb, 10 g Lokelma, 10 units insulin, 2 A D50 W, calcium gluconate, and the above-mentioned Lasix. Nephrology has been consulted. There is D5W with 3 amp sodium bicarb infusing at 50 MLS per hour. BMP on arrival has a sodium 138, testing 8.4, chloride 108, serum bicarb 18, BUN 74, creatinine 3.68, and glucose 85. Lactic acid level was 3.8 on arrival and is down to 1.6. Troponin less daniel n 0.012. NT proBNP 57,800. ECG shows normal sinus rhythm with chronic left bundle branch block without any obvious hyperkalemic changes. CBC on arrival: WBC count 8.4, hemoglobin 10.7, hematocrit 34, platelets 121. Group A strep negative. No signs of bleeding. Patient has chronic anemia. Patient denies any acute blood loss. No bloody bowel movements, melena, hematemesis. No abdominal pain or diarrhea. Vital signs are stable. The patient is seen today April 03, 2023 in follow-up in the emergency department. He is currently sitting up on the stretcher. Awake and alert in no acute distress. He is breathing a bit easier today compared to yesterday. He states he is about 50% better. He is still somewhat bronchospastic and wheezing. White count 8.6. Hemoglobin 8.1. Platelets 127. Sodium 139. Potassium 5.0. BUN 89. Creatinine 4.02. Glucose 118. He is continued on IV diuretics. Anticoagulated with Eliquis. Continued on bronchodilators. Currently in a -1.2 L balance. Making good urine. The patient is seen today April 04, 2023 in follow-up on the regular medical floor. He is awake and alert in no acute distress. Resting fairly comfortably in bed. Denies any worsening shortness of breath, cough or congestion. He is maintaining O2 saturation in the 90s on 2 L/min per nasal cannula. Chest x-ray does reveal increasing left pleural effusion and a right-sided pleural effusion. Echocardiogram confirms a right-sided pleural effusion measuring 11.9 cm, left- sided pleural effusion at 10.8 cm. The patient is currently on Eliquis this will be placed on hold for possible left-sided thoracentesis tomorrow. Count 9.0. Hemoglobin 7.8. Platelets 140. Sodium 140. Potassium 4.8. Bicarb 28. BUN 87. Creatinine 4.1. Glucose 88. He remains on Lasix 60 mg IV twice a day. Currently net -1.5 L balance The patient is seen today April 05, 2023 in follow-up on the regular medical floor. He is currently sitting up in bed. Awake and alert in no acute distress. He is maintaining O2 saturations in the 90s 2 L/min per nasal cannula. He is been afebrile. Hemodynamically stable. He did undergo a left- sided thoracentesis today with 1.4 L of straw-colored fluid removed. Fluid sent for analysis and cytology. Follow-up chest x-ray reveals a tiny left apical pneumothorax. Sodium 137. Potassium 4.1. Bicarb 31. BUN 97. Creatinine 3.86. Glucose 101. Remains on IV diuretics. Currently in a -2.8 L balance. The patient is seen today April 06, 2023 in follow-up on the regular medical floor. He is awake and alert no acute distress. He is resting comfortably in bed. He is maintaining good O2 saturations in the 90s on 2 L/min per nasal cannula. He remains on IV diuretics. Currently net -2.7 L balance. He is status post left-sided thoracentesis yesterday with 1.4 L of straw-colored fluid removed. Cytology pending. Fluid analysis transudate with a total protein of 2.6 and an LDH of 80. Today's chest x-ray shows small bilateral effusions. No evidence of pneumothorax. Count 8.7. Hemoglobin 7.7. Platelets 139. Sodium 1 39. Potassium 4.2. Bicarb 29. BUN 91. Creatinine 4.0. Objective - Vital Signs Vital signs: Vital Signs Temp 98.2 F 04/06/23 07:50 Pulse 76 04/06/23 08:00 Resp 19 04/06/23 07:50 BP 117/52 04/06/23 07:50 Pulse Ox 95 04/06/23 07:46 FiO2 Intake & Output 04/05/23 04/06/23 04/06/23 18:59 06:59 18:59 Output Total 1900 850 425 Balance -[id number] -425 Weight 62.5 kg Output: Urine 1900 850 425 Other: Voiding Method Indwelling Catheter Indwelling Catheter - Exam GENERAL EXAM: Alert, 87-year-old male, resting comfortably in bed, on 2 L nasal cannula, in no apparent distress. HEAD: Normocephalic and atraumatic EYES: Normal reaction of pupils, equal size. NOSE: Clear with pink turbinates. THROAT: Mild erythema, no exudates NECK: No masses, no JVD. CHEST: No chest wall deformity. LUNGS: Equal air entry with right basilar inspiratory crackles. No conversational dyspnea. CVS: S1 and S2 normal with no audible murmur, regular rhythm. No extra heart sounds ABDOMEN: No hepatosplenomegaly, active bowel sounds, no guarding or rigidity. SPINE: No scoliosis or deformity SKIN: No rashes CENTRAL NERVOUS SYSTEM: No focal deficits, tone is normal in all 4 extremities. EXTREMITIES: There is moderate bilateral lower extremity nonpitting edema. No clubbing, or cyanosis. Peripheral pulses are intact. - Labs CBC & Chem 7: 04/06/23 05:42 04/06/23 05:42 Labs: Abnormal Lab Results - Last 24 Hours (Table) 04/05/23 04/06/23 04/06/23 Range/Units 10:00 05:42 05:42 RBC 2.51 L (4.40-5.60) X 10*6/uL Hgb 7.7 L (13.0-17.0) g/dL Hct 24.3 L (39.6-50.0) % MCHC 31.7 L (32.0-37.0) g/dL RDW 16.5 H (11.5-14.5) % Plt Count 139 L (140-440) X 10*3/uL Anion Gap 14.00 H (4.00-12.00) mmol/L BUN 90.7 H (9.0-27.0) mg/dL Creatinine 4.0 H (0.6-1.5) mg/dL Est GFR (CKD-EPI) 14 L (>=60) BUN/Creatinine Ratio 22.68 H (12.00-20.00) Ratio Total Protein 5.6 L (6.2-8.2) g/dL Albumin 3.1 L (3.8-4.9) g/dL Albumin/Globulin Ratio 1.24 L (1.60-3.17) Ratio Fluid Appearance Hazy A (Clear) Microbiology - Last 24 Hours (Table) 04/05/23 10:00 Gram Stain - Preliminary Pleural Fluid Assessment and Plan Assessment: Acute hypoxemic respiratory failure, secondary to acute systolic CHF exacerbation and fluid overload. Chest x-ray shows cardiomegaly, pulmonary vascular congestion, and interstitial edema. Patient also has moderate to large left-sided pleural effusion and a small right pleural effusion. NT proBNP was elevated at 57,800. Status post left-sided thoracentesis April 05, 2023 with 1.4 L of straw-colored fluid removed. Fluid analysis transudate, cytology pending. Follow-up chest x-ray reveals no evidence of pneumothorax Acute on chronic kidney disease Severe hyperkalemia, improved Lactic acidosis, improved Chronic obstructive pulmonary disease, stable History of paroxysmal atrial fibrillation, anticoagulated on Eliquis, currently normal sinus Benign prostatic hyperplasia Anemia of chronic disease, patient reportedly received 1 unit PRBC at [facility] Plan: The patient was seen and evaluated Chest x-ray, labs and medications reviewed Pleural fluid transudate No evidence of pneumothorax Continued on IV diuretics Titrate down the FiO2 as tolerated We will continue to follow I have personally seen and examined the patient, performed the documentation and the assessment and plan as written. Number of minutes spent on the visit: 10.
--- NOTE | 2023-04-06 13:29 | P.PN ---
Subjective Patient is seen for follow-up for acute kidney injury on top of chronic kidney disease. Serum creatinine slightly higher at 4.0 from 3.8 yesterday but was 4.0 prior to that. Baseline creatinine around 3 mg/dL. No complaints of chest pains or shortness of breath. Urine output at 2.7 L for 24 hours. Maintained on IV Lasix 60 mg every 12 hours Objective - Vital Signs Vital signs: Vital Signs Temp 98.2 F 04/06/23 07:50 Pulse 76 04/06/23 08:00 Resp 19 04/06/23 07:50 BP 117/52 04/06/23 07:50 Pulse Ox 95 04/06/23 07:46 FiO2 Intake & Output 04/05/23 04/06/23 04/06/23 18:59 06:59 18:59 Output Total 1900 850 425 Balance -1900 -850 -425 Weight 62.5 kg Output: Urine 1900 850 425 Other: Voiding Method Indwelling Catheter Indwelling Catheter - Exam Patient is awake, comfortable, no acute distress Examination of the heart S1 and S2 Examination of the lungs bilateral breath sounds are heard Abdomen is soft nontender Examination lower extremities shows no significant edema ALTERATION SPECIALIST exam grossly intact - Labs CBC & Chem 7: 04/06/23 05:42 04/06/23 05:42 Labs: Abnormal Lab Results - Last 24 Hours (Table) 04/05/23 04/06/23 04/06/23 Range/Units 10:00 05:42 05:42 RBC 2.51 L (4.40-5.60) X 10*6/uL Hgb 7.7 L (13.0-17.0) g/dL Hct 24.3 L (39.6-50.0) % MCHC 31.7 L (32.0-37.0) g/dL RDW 16.5 H (11.5-14.5) % Plt Count 139 L (140-440) X 10*3/uL Anion Gap 14.00 H (4.00-12.00) mmol/L BUN 90.7 H (9.0-27.0) mg/dL Creatinine 4.0 H (0.6-1.5) mg/dL Est GFR (CKD-EPI) 14 L (>=60) BUN/Creatinine Ratio 22.68 H (12.00-20.00) Ratio Total Protein 5.6 L (6.2-8.2) g/dL Albumin 3.1 L (3.8-4.9) g/dL Albumin/Globulin Ratio 1.24 L (1.60-3.17) Ratio Fluid Appearance Hazy A (Clear) Microbiology - Last 24 Hours (Table) 04/05/23 10:00 Gram Stain - Preliminary Pleural Fluid Assessment and Plan Assessment: 1. Acute kidney injury secondary to ATN secondary to anemia and secondary to urinary retention. Renal function worse from diuresis. No hydronephrosis noted on kidney ultrasound. 2. Chronic kidney disease stage IV with baseline creatinine near 3 secondary to nephrosclerosis and obstructive uropathy. 3. Hyperkalemia secondary to acute kidney injury, acidosis and urinary retention. Improved with medical management. 4. Volume overload with pleural effusions. 5. Acute blood loss anemia status post blood transfusion this admission. 6. Acute on chronic systolic CHF ejection fraction of 30 to 35% with moderate mitral and tricuspid regurgitation. 7. Metabolic acidosis secondary to acute kidney injury improved with bicarb drip. 8. Urinary retention status post Riley catheter placement. On Flomax. Plan: Decrease diuretics Repeat labs in a.m. Close follow-up as outpatient for CK D
--- NOTE | 2023-04-06 13:42 | P.PN ---
Subjective Progress Note Date: 04/06/23 Patient is a 87-year-old white male with past medical history significant for chronic kidney disease, congestive heart failure, atrial fibrillation anticoagulated on Eliquis, hyperlipidemia, COPD, and BPH, who was transferred from [facility] for severe hyperkalemia and acute kidney injury. Filiberto gomes has been complaining of shortness of breath and weakness for a few days. Patient also complaining of sore throat. Patient weakness and shortness of breath progressed so he eventually presented to [facility] where he was evaluated, patient was found to have elevated potassium levels of 8.4, patient was given hyperkalemia protocol and received sodium bicarb, Lokelma, insulin and dextrose. Chest x-ray done showed large left pleural effusion small right pleural effusion, patient was transferred to [facility]. Patient has been complaining of shortness of breath on exertion and rest. Denies any chest pain. There is complaint of swelling of lower extremities. Patient complaining of nonproductive cough. Denies any fevers or chills Patient admitted to internal medicine service 04/03. Patient seen and examined. 2D echo done showed LVEF of 35% with global hypokinesis, severe biatrial enlargement, moderate mitral regurg, severe aortic stenosis. 04/04. Patient seen and examined. States breathing is improving, still gets short of breath on exertion. 04/05. Patient seen and examined. Patient being planned for thoracentesis this morning with pulmonary medicine. States breathing is improved. Denies any nausea or vomiting 04/06. Patient seen and examined. States breathing has improved, feels much better after thoracentesis yesterday. Labs done this morning showed WBC 8.7, hemoglobin 7.7, platelet count 139, sodium 139, potassium 4.2, BUN 90, creatinine 4 REVIEW OF SYSTEMS: CONSTITUTIONAL: No fever, no malaise,. CARDIOVASCULAR: No chest pain, no palpitations, no syncope. PULMONARY: As mentioned above GASTROINTESTINAL: No diarrhea, no nausea, no vomiting, no abdominal pain. NEUROLOGICAL: No headaches, no weakness, PHYSICAL EXAMINATION: GENERAL: The patient is alert and oriented x3, not in any acute distress. Well developed, well nourished. HEENT: Pupils are round and equally reacting to light. EOMI. No scleral icterus. No conjunctival pallor. Normocephalic, atraumatic. No pharyngeal erythema. No thyromegaly. CARDIOVASCULAR: S1 and S2 present. No murmurs, rubs, or gallops. PULMONARY: Coarse breath sound bilaterally, diminished at the bases, crackles audible ABDOMEN: Soft, nontender, nondistended, normoactive bowel sounds. No palpable organomegaly. MUSCULOSKELETAL: No joint swelling or deformity. EXTREMITIES: No cyanosis, clubbing, or pedal edema. NEUROLOGICAL: Gross neurological examination did not reveal any focal deficits. SKIN: No rashes. Assessment and plan Hyperkalemia Acute hypoxic respiratory failure Acute on chronic kidney disease Acute on chronic systolic CHF History paroxysmal A-fib COPD Lactic acidosis Bilateral pleural effusion aortic stenosis Monitor vital signs Monitor CBC Monitor CMP Continue telemetry monitoring 2D echo done showed LVEF of 35% with global hypokinesis, severe biatrial enlargement, moderate mitral regurg, severe aortic stenosis. Avoid nephrotoxic agents Continue breathing treatment IV Lasix changed to oral Lasix 41 twice a day Status post left-sided thoracentesis with removal of 1.4 L of fluid Nephrology following Pulmonology following, Cardiology following Labs and medication were reviewed.. Continue same treatment. Continue with symptomatic treatment. Resume home medication. Monitor labs and vitals. DVT and GI prophylaxis. Further recommendations as per clinical course of the patient Dictation was produced using [employer] dictation software. please excuse any grammatical, word or spelling errors. Objective - Vital Signs Vital signs: Vital Signs Temp 98.2 F 04/06/23 07:50 Pulse 76 04/06/23 08:00 Resp 19 04/06/23 07:50 BP 117/52 04/06/23 07:50 Pulse Ox 95 04/06/23 07:46 FiO2 Intake & Output 04/05/23 04/06/23 04/06/23 18:59 06:59 18:59 Output Total 1900 850 425 Balance -1900 -726 -417 Weight 62.5 kg Output: Urine 1900 850 425 Other: Voiding Method Indwelling Catheter Indwelling Catheter - Labs CBC & Chem 7: 04/06/23 05:42 04/06/23 05:42 Labs: Abnormal Lab Results - Last 24 Hours (Table) 04/05/23 04/06/23 04/06/23 Range/Units 10:00 05:42 05:42 RBC 2.51 L (4.40-5.60) X 10*6/uL Hgb 7.7 L (13.0-17.0) g/dL Hct 24.3 L (39.6-50.0) % MCHC 31.7 L (32.0-37.0) g/dL RDW 16.5 H (11.5-14.5) % Plt Count 139 L (140-440) X 10*3/uL Anion Gap 14.00 H (4.00-12.00) mmol/L BUN 90.7 H (9.0-27.0) mg/dL Creatinine 4.0 H (0.6-1.5) mg/dL Est GFR (CKD-EPI) 14 L (>=60) BUN/Creatinine Ratio 22.68 H (12.00-20.00) Ratio Total Protein 5.6 L (6.2-8.2) g/dL Albumin 3.1 L (3.8-4.9) g/dL Albumin/Globulin Ratio 1.24 L (1.60-3.17) Ratio Fluid Appearance Hazy A (Clear) Microbiology - Last 24 Hours (Table) 04/05/23 10:00 Gram Stain - Preliminary Pleural Fluid
[2023-04-06] MEDS: FUROSEMIDE 40 MG TAB PO SCH (14:45)
--- NOTE | 2023-04-07 08:52 | XR ---
EXAMINATION TYPE: XR chest 1V portable DATE OF EXAM: 04/07/2023 COMPARISON: 04/06/2023 HISTORY: Pleural effusion TECHNIQUE: Single frontal view of the chest is obtained. FINDINGS: There is increasing consolidation and density in the left lung. There is a pneumothorax co mponent. No mediastinal deviation. Right-sided consolidation small effusion stable. Atherosclerotic c hange of the aorta. Heart size normal. Diffuse osteopenia and arthropathy of the shoulders. Degenerat ingrid change of the spine. IMPRESSION: 1. Increasing consolidation and pleural effusion on the left. Likely represents a hydropneumothorax o f approximately 5-10% pneumothorax noted. No significant interval change.
--- NOTE | 2023-04-07 08:58 | P.PN ---
Subjective Progress Note Date: 04/07/23 HISTORY OF PRESENT ILLNESS: This is an 87-year-old male patient of Dr. Rhodes with past medical history of permanent atrial fibrillation, hypertension, dyslipidemia, chronic systolic heart failure, valvular heart disease, chronic kidney disease, chronic anemia. We have been asked to evaluate the patient for CHF. Patient states he has had sudden onset of shortness of breath since Thursday slowly worsening. He states he is taking all of his medications as directed. He is seen today in the emergency center waiting for bed on the cardiac stepdown unit. He states he continues to have some shortness of breath and dry mouth. Patient has has had multiple medication administrations for hyperkalemia managed by nephrology. He is status post IV Lasix 60 mg times once followed by 40 mg times once. Pulmonary medicine following and planning for possible thoracentesis. EKG atrial fibrillation with left bundle branch block Chest x-ray: Cardiomegaly, pulmonary vascular congestion, diffuse interstitial opacities concerning for pulmonary edema. Small right and moderate left lateral effusion. Left basilar airspace disease atelectasis or pneumonia. Chest ultrasound revealed left pleural effusion 8.3 cm pocket. WBC 8.4, hemoglobin 10.7, platelet count 121. INR 1.2. Sodium 138. Initial potassium 8.4 followed by 5.6 and 6.2. BUN 89 creatinine 3.67. Blood sugar 121. Initial lactic acid 3.8 followed by 1.6. Troponin negative x 1. proBNP 57,800. Liver function test within normal limits. Magnesium 2.3. Urinalysis negative for infection. Group A strep not detected. Home cardiac medications: Amlodipine 5 mg daily, Eliquis 2.5 mg twice daily, Lasix 20 mg daily, hydralazine 25 mg twice daily, lovastatin 20 mg at bedtime. Echocardiogram performed on 08/29/2022 revealed EF of 45%, mild to moderate mitral regurgitation. 04/03 Patient is seen today in follow-up and remains in the ER waiting for a bed on the cardiac stepdown unit. Repeat blood work reveals potassium of 5.6, BUN 87 creatinine 3.73. Patient is followed by nephrology. Echocardiogram reveals EF of 30 to 35%, severe biatrial enlargement, moderate mitral rotation. Decreased aortic valve leaflet excursion likely moderate a ortic stenosis. Moderate tricuspid regurgitation. Pleural effusion noted. 04/04/2023 Patient examined this morning at the bedside. Patient denies any chest pain or pressure. He denies shortness of breath. He remains on IV Lasix twice a day. No plans for thoracentesis per pulmonary medicine. Patient has been resumed on Eliquis. Vital signs are stable. Blood pressure 114/57. 04/05/2023 Patient examined this morning at the bedside. Patient does report feeling somewhat more short of breath today in comparison to yesterday. He denies any chest pain or pressure. He remains on IV diuretics. Patient's Eliquis has been placed on hold. Plan is for possible thoracentesis today with pulmonary medicine 04/06 Yesterday, patient underwent thoracentesis with removal of [address] Reddy. Cytology is pending. Chest x-ray showed a significant improvement yesterday but it appears that the pleural effusion is returning. Patient denies having any chest pain now. He states he has chronic shortness of breath on and off for a long period of time. He does feel a lot better since yesterday's thoracentesis. He continues to have cough decreasing wheezing. Blood pressure 117/52, heart rate 72, pulse ox 96% on 2 L nasal cannula. Repeat blood work reveals hemoglobin of 7.7, sodium 139, potassium 4.2, BUN 90 and creatinine 4. Patient is also followed by nephrology for acute kidney injury. Patient has been maintained on IV Lasix 60 mg twice daily. Patient had a negative fluid balance yesterday and today and -2750. Weight is trending down. 04/07 Patient states he has more shortness of breath from yesterday and had trouble all through the night with his breathing. Pulse ox is 96% on 2 L, blood pressure 127/70, heart rate 71. Patient has a documented negative fluid balance yesterday of 2750. Weight is trending down. No repeat blood work is available at the time of this dictation. Patient has been on IV Lasix changed over to oral Lasix by nephrology yesterday. Patient states that he was told yesterday that he will not have any further thoracentesis. We will plan to confirm this with pulmonary medicine. PHYSICAL EXAM: VITAL SIGNS: Reviewed. GENERAL: Well-developed in no acute distress. NECK: Supple. No JVD or thyromegaly LUNGS: Respirations even and unlabored. Lungs diminished breath sounds with bilateral wheezing. HEART: Irregular rate and rhythm. S1 and S2 heard. Systolic murmur noted. EXTREMITIES: Normal range of motion. No clubbing or cyanosis. Peripheral pulses intact. Trace lower extremity edema ASSESSMENT: Acute on chronic systolic heart failure Pleural effusion Acute kidney injury and chronic kidney disease Severe hyperkalemia Permanent atrial fibrillation on Eliquis Hypertension Dyslipidemia Valvular heart disease with moderate mitral regurgitation Chronic anemia PLAN: Continue current cardiac medications Continue oral Lasix per nephrology Daily weights, accurate I&O, and monitoring of kidney function Portable chest x-ray ordered Patient's Eliquis has been placed on hold. He is status post pleurocentesis but will hold on resuming until cleared by pulmonary medicine. Further recommendations pending patient course Nurse practitioner note has been reviewed by physician. Signing provider agrees with the documented findings, assessment, and plan of care documented by MICROBIAL SPECIALIST as a scribe. Objective - Vital Signs Vital signs: Vital Signs Temp 98.6 F 04/07/23 02:00 Pulse 74 04/07/23 02:00 Resp 13 04/06/23 19:06 BP 124/71 04/07/23 02:00 Pulse Ox 99 04/07/23 02:00 FiO2 Intake & Output 04/06/23 04/07/23 04/07/23 18:59 06:59 18:59 Output Total 1225 Balance -1225 Output: Urine 1225 Other: Voiding Method Indwelling Catheter Indwelling Catheter - Labs CBC & Chem 7: 04/06/23 05:42 04/06/23 05:42 Labs: Abnormal Lab Results - Last 24 Hours (Table) 04/06/23 04/06/23 Range/Units 05:42 05:42 RBC 2.51 L (4.40-5.60) X 10*6/uL Hgb 7.7 L (13.0-17.0) g/dL Hct 24.3 L (39.6-50.0) % MCHC 31.7 L (32.0-37.0) g/dL RDW 16.5 H (11.5-14.5) % Plt Count 139 L (140-440) X 10*3/uL Anion Gap 14.00 H (4.00-12.00) mmol/L BUN 90.7 H (9.0-27.0) mg/dL Creatinine 4.0 H (0.6-1.5) mg/dL Est GFR (CKD-EPI) 14 L (>=60) BUN/Creatinine Ratio 22.68 H (12.00-20.00) Ratio Total Protein 5.6 L (6.2-8.2) g/dL Albumin 3.1 L (3.8-4.9) g/dL Albumin/Globulin Ratio 1.24 L (1.60-3.17) Ratio Microbiology - Last 24 Hours (Table) 04/05/23 10:00 Gram Stain - Preliminary Pleural Fluid Body Fluid Culture - Preliminary 04/05/23 10:00 Acid Fast Bacilli Smear - Preliminary Pleural Fluid
--- NOTE | 2023-04-07 11:23 | P.PN ---
Subjective Progress Note Date: 04/07/23 I am seeing this patient in consultation today 04/02/2023 for dyspnea and left- sided pleural effusion. He is currently in the emergency room. He was transferred from [facility] late last night for severe hyperkalemia and acute kidney injury. Patient is a 87-year-old white male with past medical history significant for chronic kidney disease, congestive heart failure, atrial fibrillation anticoagulated on Eliquis, hyperlipidemia, COPD, and BPH. Patient is technically a poor historian. Apparently, he is complaining of shortness of breath, weakness and sore throat over the last several days. This progressively worsened, and he went into [facility] to be evaluated. Patient was found to be severely hyperkalemic. He was also found to be anemic and was transfused 1 unit PRBC. He was transferred to [facility]. Patient is currently resting in bed, on 2 L/min nasal cannula, in no acute distress. He is weak and cannot sit up in bed without assistance. Becomes short of breath with any kind of activity. He denies any chest pain, heart palpitations, or syncopal events. He does have bilateral lower extremity swelling. He has an occasional nonproductive cough. Denies any sputum production, fevers. Chest x-ray on arrival shows cardiomegaly, pulmonary vascu lar congestion, and interstitial edema. There is a moderate to large left-sided pleural effusion and small right pleural effusion.. Patient was given 60 mg of IV Lasix. A Riley catheter was inserted, and the patient has approximately 800 mL of concentrated urine. Patient states that earlier in the week he has had troubles urinating. He voids about 2-3 times per day. Endorses dysuria. Denies any hematuria, urinary frequency. Urinalysis on arrival not concerning for UTI. Trace protein. He does have baseline chronic kidney disease. Ultrasound of the abdomen and bladder did not show any hydronephrosis. Potassium level on arrival was elevated at 8.4 and is down to 5 point 3:06 amp sodium bicarb, 10 g Lokelma, 10 units insulin, 2 A D50 W, calcium gluconate, and the above-mentioned Lasix. Nephrology has been consulted. There is D5W with 3 amp sodium bicarb infusing at 50 MLS per hour. BMP on arrival has a sodium 138, testing 8.4, chloride 108, serum bicarb 18, BUN 74, creatinine 3.68, and glucose 85. Lactic acid level was 3.8 on arrival and is down to 1.6. Troponin less dnaiel n 0.012. NT proBNP 57,800. ECG shows normal sinus rhythm with chronic left bundle branch block without any obvious hyperkalemic changes. CBC on arrival: WBC count 8.4, hemoglobin 10.7, hematocrit 34, platelets 121. Group A strep negative. No signs of bleeding. Patient has chronic anemia. Patient denies any acute blood loss. No bloody bowel movements, melena, hematemesis. No abdominal pain or diarrhea. Vital signs are stable. The patient is seen today April 03, 2023 in follow-up in the emergency department. He is currently sitting up on the stretcher. Awake and alert in no acute distress. He is breathing a bit easier today compared to yesterday. He states he is about 50% better. He is still somewhat bronchospastic and wheezing. White count 8.6. Hemoglobin 8.1. Platelets 127. Sodium 139. Potassium 5.0. BUN 89. Creatinine 4.02. Glucose 118. He is continued on IV diuretics. Anticoagulated with Eliquis. Continued on bronchodilators. Currently in a -1.2 L balance. Making good urine. The patient is seen today April 04, 2023 in follow-up on the regular medical floor. He is awake and alert in no acute distress. Resting fairly comfortably in bed. Denies any worsening shortness of breath, cough or congestion. He is maintaining O2 saturation in the 90s on 2 L/min per nasal cannula. Chest x-ray does reveal increasing left pleural effusion and a right-sided pleural effusion. Echocardiogram confirms a right-sided pleural effusion measuring 11.9 cm, left- sided pleural effusion at 10.8 cm. The patient is currently on Eliquis this will be placed on hold for possible left-sided thoracentesis tomorrow. Count 9.0. Hemoglobin 7.8. Platelets 140. Sodium 140. Potassium 4.8. Bicarb 28. BUN 87. Creatinine 4.1. Glucose 88. He remains on Lasix 60 mg IV twice a day. Currently net -1.5 L balance The patient is seen today April 05, 2023 in follow-up on the regular medical floor. He is currently sitting up in bed. Awake and alert in no acute distress. He is maintaining O2 saturations in the 90s 2 L/min per nasal cannula. He is been afebrile. Hemodynamically stable. He did undergo a left- sided thoracentesis today with 1.4 L of straw-colored fluid removed. Fluid sent for analysis and cytology. Follow-up chest x-ray reveals a tiny left apical pneumothorax. Sodium 137. Potassium 4.1. Bicarb 31. BUN 97. Creatinine 3.86. Glucose 101. Remains on IV diuretics. Currently in a -2.8 L balance. The patient is seen today April 06, 2023 in follow-up on the regular medical floor. He is awake and alert no acute distress. He is resting comfortably in bed. He is maintaining good O2 saturations in the 90s on 2 L/min per nasal cannula. He remains on IV diuretics. Currently net -2.7 L balance. He is status post left-sided thoracentesis yesterday with 1.4 L of straw-colored fluid removed. Cytology pending. Fluid analysis transudate with a total protein of 2.6 and an LDH of 80. Today's chest x-ray shows small bilateral effusions. No evidence of pneumothorax. Count 8.7. Hemoglobin 7.7. Platelets 139. Sodium 1 39. Potassium 4.2. Bicarb 29. BUN 91. Creatinine 4.0. The patient is seen today April 07, 2023 in follow-up on the regular medical floor. He is resting comfortably in bed. Awake and alert in no acute distress. Maintaining O2 saturations in the 90s on 2 L/min per nasal cannula. He is cont inued on bronchodilators and oral diuretics. Currently net -1.2 L balance. Follow-up chest x-ray revealed creasing consolidation and pleural effusion on the left. Likely represents a hydropneumothorax of approximately 5 to 10% pneumothorax noted. No significant change. Objective - Vital Signs Vital signs: Vital Signs Temp 98.4 F 04/07/23 07:25 Pulse 70 04/07/23 09:51 Resp 15 04/07/23 07:25 BP 127/70 04/07/23 07:25 Pulse Ox 96 04/07/23 07:25 FiO2 Intake & Output 04/06/23 04/07/23 04/07/23 18:59 06:59 18:59 Output Total 1225 300 Balance -1225 -300 Output: Urine 1225 300 Other: Voiding Method Indwelling Catheter Indwelling Catheter Indwelling Catheter - Exam GENERAL EXAM: Alert, pleasant 87-year-old male, on 2 L nasal cannula, in no apparent distress. HEAD: Normocephalic and atraumatic EYES: Normal reaction of pupils, equal size. NOSE: Clear with pink turbinates. THROAT: Mild erythema, no exudates NECK: No masses, no JVD. CHEST: No chest wall deformity. LUNGS: Equal air entry with right basilar inspiratory crackles. No conversational dyspnea. CVS: S1 and S2 normal with no audible murmur, regular rhythm. No extra heart sounds ABDOMEN: No hepatosplenomegaly, active bowel sounds, no guarding or rigidity. SPINE: No scoliosis or deformity SKIN: No rashes CENTRAL NERVOUS SYSTEM: No focal deficits, tone is normal in all 4 extremities. EXTREMITIES: There is moderate bilateral lower extremity nonpitting edema. No clubbing, or cyanosis. Peripheral pulses are intact. - Labs CBC & Chem 7: 04/06/23 05:42 04/06/23 05:42 Labs: Microbiology - Last 24 Hours (Table) 04/05/23 10:00 Gram Stain - Preliminary Pleural Fluid Body Fluid Culture - Preliminary 04/05/23 10:00 Acid Fast Bacilli Smear - Preliminary Pleural Fluid Assessment and Plan Assessment: Acute hypoxemic respiratory failure, secondary to acute systolic CHF exacerbation and fluid overload. Chest x-ray shows cardiomegaly, pulmonary vascular congestion, and interstitial edema. Patient also has moderate to large left-sided pleural effusion and a small right pleural effusion. NT proBNP was elevated at 57,800. Status post left-sided thoracentesis April 05, 2023 with 1.4 L of straw-colored fluid removed. Fluid analysis transudate, cytology pending. Follow-up chest x-ray reveals possible hydropneumothorax of approximat dorothea 5 to 10% Acute on chronic kidney disease Severe hyperkalemia, improved Lactic acidosis, improved Chronic obstructive pulmonary disease, stable History of paroxysmal atrial fibrillation, anticoagulated on Eliquis, currently normal sinus Benign prostatic hyperplasia Anemia of chronic disease, patient reportedly received 1 unit PRBC at [facility] Plan: The patient was seen and evaluated Chest x-ray, labs and medications reviewed Continues with small pneumothorax Obtain a CT scan of the chest Continued on diuretics We will continue to follow I have personally seen and examined the patient, performed the documentation and the assessment and plan as written. Number of minutes spent on the visit: 10.
[2023-04-07 13:17] LABS: BUN/Creat Ratio 22.78 Ratio (12.00-20.00); Blood Urea Nitrogen 91.1 mg/dL (9.0-27.0); Calcium 8.7 mg/dL (8.7-10.3); Carbon Dioxide 29.4 mmol/L (21.6-31.8); Chloride 95 mmol/L (96-109); Glucose 77 mg/dL (70-110); Sodium 138 mmol/L (135-145)
--- NOTE | 2023-04-07 14:53 | FL ---
EXAMINATION TYPE: FL barium swallow w video DATE OF EXAM: 04/07/2023 CLINICAL HISTORY: 87-year-old male status post left-sided thoracentesis couple days ago with coughing at the bedside, assess for aspiration. TECHNIQUE: Deglutition study is performed utilizing thin liquid barium, barium thick applesauce, and crumbled, barium coated cracker. Total fluoroscopy time: 1 minute 52 seconds Total images: None. Real-time fluoroscopy support was provided to speech pathology. DOSE AREA PRODUCT (DAP) UGY*M,MGY*CM: 167.55 COMPARISON: None. FINDINGS: The oral and pharyngeal phases show satisfactory initiation and propagation with all modalities teste d. Patient is partially edentulous but tolerates the crumbled consistency. There is transient penet ration with thin liquids. No other penetration or aspiration is seen. No significant pharyngeal resid ue was appreciated. IMPRESSION: Transient penetration with thin liquids. No other penetration or aspiration seen. Please refer to speech therapist notes for further details if necessary.
--- NOTE | 2023-04-07 16:02 | CT ---
EXAMINATION TYPE: CT chest wo con CT DLP: 461.5 mGycm, Automated exposure control for dose reduction was used. DATE OF EXAM: 04/07/2023 2:12 PM COMPARISON: Portable chest x-rays, most recent today at 8:[address] chest without contrast CLINICAL INDICATION:Male, 87 years old with history of Left pneumothorax; PHH, Left pneumothorax TECHNIQUE: Multiple axial images were obtained through the chest. Sagittal and coronal reformats were created for review. Contrast used: mL of (None if empty) Oral contrast used: (None if empty) FINDINGS: Examination limited by lack of IV contrast. LUNGS/ PLEURA: Moderate bilateral pleural effusions, appears partially loculated on the left. There i s a small to moderate left anterior pneumothorax, approximately 15-20%. Consolidation and partial col lapse of the left lung, appears similar to the most recent radiographs. There is consolidative opacit y in the posterior right lung adjacent to the effusion. AIRWAY: Central airways are patent. Smaller bronchi taper into the areas of consolidated lung with ai r bronchograms present. LOWER NECK: No significant findings. MEDIASTINUM: Right anterior paratracheal node is mildly enlarged with a short axis 1.4 cm, stable. Ot her mildly prominent and nonenlarged nodes are also again seen. No new or enlarging nodes. HEART: Mild cardiomegaly. Severe coronary artery calcification and/or stents. There is a small perica rdial effusion. VASCULATURE: Severe atherosclerotic calcifications of the aorta and branches. Aorta is mildly tortuo us. Ascending aorta is 3.6 CM, descending is 2.8 CM. Aorta is considered mildly ectatic. Pulmonary trunk measures 3.8 CM. The pulmonary trunk is enlarged (>3cm), this can be seen with pulmon esteban hypertension. Vessels otherwise not further assessed without contrast. SOFT TISSUES/LYMPH NODES: Unremarkable soft tissues. No axillary adenopathy. UPPER ABDOMEN: No clearly acute abnormality. Contrast within partially visualized colon. Small radiod ense focus at the gastric outlet may represent medication or other ingested material. Heavy calcifica tions of the upper abdominal aorta and branches. No AAA visualized. Partially visualized hazy slightl y increased attenuation of the fat between the IVC and right psoas, of uncertain etiology or signific ance. Small calcification in the posterior left kidney, could be renal calculus or vascular calcifica tion. No hydronephrosis is seen. MUSCULOSKELETAL: Generalized osteopenia. Moderate degenerative changes throughout the visualized spin e. There is mild anterior wedging of L1, representing compression fracture deformity of uncertain age , but favored to be nonacute and appears similar to previous outside CT 04/01/2023. IMPRESSION: 1. Moderate sized bilateral pleural effusions. Left effusion appears somewhat loculated and there is additionally a left anterior pneumothorax, approximately 15-20%. 2. Consolidation and partial collapse of the left lung, appears similar to the most recent radiograp hs. 3. Opacity in the posterior right lung, likely atelectasis with superimposed infection unable to be excluded. 4. Stable nonenlarged and mildly enlarged mediastinal nodes, probably reactive. 5. Mild cardiomegaly. Severe coronary artery calcification and/or stents. Small pericardial effusion . 6. Severe atherosclerotic calcifications of the aorta and branches. 7. Enlarged pulmonary trunk (>3cm), can be seen with pulmonary hypertension. 8. Partially visualized hazy slightly increased attenuation of the fat between the IVC and right pso as, of uncertain etiology or significance. If clinically desired, CT abdomen and pelvis may be consid ered for further evaluation. 9. Mild anterior wedge compression deformity of L1, seems nonacute.
--- NOTE | 2023-04-07 17:35 | P.PN ---
Subjective Patient is seen for follow-up for acute kidney injury on top of chronic kidney disease. Serum creatinine at 4.0. Baseline creatinine around 3 mg/dL. No complaints of chest pains, complaining of mild shortness of breath early this morning. Urine output at 1.2 L for 24 hours. Lasix was switched to oral yesterday. Objective - Vital Signs Vital signs: Vital Signs Temp 97.8 F 04/07/23 14:56 Pulse 65 04/07/23 14:56 Resp 19 04/07/23 14:56 BP 126/46 04/07/23 14:56 Pulse Ox 97 04/07/23 14:56 FiO2 Intake & Output 04/06/23 04/07/23 04/07/23 18:59 06:59 18:59 Output Total 1225 300 Balance -1225 -300 Weight 62.5 kg Output: Urine 1225 300 Other: Voiding Method Indwelling Catheter Indwelling Catheter Indwelling Catheter - Exam Patient is awake, comfortable, no acute distress Examination of the heart S1 and S2 Examination of the lungs bilateral breath sounds are heard Abdomen is soft nontender Examination lower extremities shows no significant edema RN CLINICAL TRIALS exam grossly intact - Labs CBC & Chem 7: 04/06/23 05:42 04/07/23 06:57 Labs: Abnormal Lab Results - Last 24 Hours (Table) 04/07/23 Range/Units 06:57 Chloride 95 L (96-109) mmol/L Anion Gap 13.60 H (4.00-12.00) mmol/L BUN 91.1 H (9.0-27.0) mg/dL Creatinine 4.0 H (0.6-1.5) mg/dL Est GFR (CKD-EPI) 14 L (>=60) BUN/Creatinine Ratio 22.78 H (12.00-20.00) Ratio Microbiology - Last 24 Hours (Table) 04/05/23 10:00 Gram Stain - Preliminary Pleural Fluid Body Fluid Culture - Preliminary 04/05/23 10:00 Acid Fast Bacilli Smear - Preliminary Pleural Fluid Assessment and Plan Assessment: 1. Acute kidney injury secondary to ATN secondary to anemia and secondary to urinary retention. Renal function slightly worse from diuresis and Lasix was decreased. No hydronephrosis noted on kidney ultrasound. 2. Chronic kidney disease stage IV with baseline creatinine near 3 secondary to nephrosclerosis and obstructive uropathy. 3. Hyperkalemia secondary to acute kidney injury, acidosis and urinary retention. Improved with medical management. 4. Volume overload with pleural effusions. 5. Acute blood loss anemia status post blood transfusion this admission. 6. Acute on chronic systolic CHF ejection fraction of 30 to 35% with moderate mitral and tricuspid regurgitation. 7. Metabolic acidosis secondary to acute kidney injury improved with bicarb drip. 8. Urinary retention status post Riley catheter placement. On Flomax. Plan: Continue with current dose of oral Lasix. Briefly discussed renal replacement therapy if renal function worsens or volume status worsens. Repeat labs in a.m. Close follow-up as outpatient for CK D
[2023-04-08 08:41] LABS: Basophils # (A) 0.01 X 10*3/uL (0.00-0.10); Basophils % (A) 0.1 %; Eosinophils # (A) 0.76 X 10*3/uL (0.04-0.35); Eosinophils % (A) 8.9 %; HCT 24.1 % (39.6-50.0); HGB 7.7 g/dL (13.0-17.0); Lymphocytes # (A) 1.22 X 10*3/uL (0.90-5.00); Lymphocytes % (A) 14.3 %; MCH 31.3 pg (27.0-32.0); Mean Platelet Volume 12.4 FL (9.5-12.2); Monocytes # (A) 0.96 X 10*3/uL (0.20-1.00); Monocytes % (A) 11.2 %; NRBC Per 100 WBC 0 X 10*3/uL (0.00-0.01); Neutrophils # (A) 5.55 X 10*3/uL (1.80-7.70); Neutrophils % (A) 64.9 %; Platelet Count 146 X 10*3/uL (140-440); RBC 2.46 X 10*6/uL (4.40-5.60); RDW 16.3 % (11.5-14.5); WBC 8.55 X 10*3/uL (4.50-10.00)
[2023-04-08 08:56] LABS: BUN/Creat Ratio 24.74 Ratio (12.00-20.00); Blood Urea Nitrogen 96.5 mg/dL (9.0-27.0); Calcium 8.7 mg/dL (8.7-10.3); Carbon Dioxide 29.4 mmol/L (21.6-31.8); Chloride 95 mmol/L (96-109); Glucose 93 mg/dL (70-110); Potassium 3.9 mmol/L (3.5-5.5); Sodium 139 mmol/L (135-145)
--- NOTE | 2023-04-08 09:02 | P.PN ---
Subjective Progress Note Date: 04/07/23 Patient is a 87-year-old white male with past medical history significant for chronic kidney disease, congestive heart failure, atrial fibrillation anticoagulated on Eliquis, hyperlipidemia, COPD, and BPH, who was transferred from [facility] for severe hyperkalemia and acute kidney injury. Filiberto gomes has been complaining of shortness of breath and weakness for a few days. Patient also complaining of sore throat. Patient weakness and shortness of breath progressed so he eventually presented to [facility] where he was evaluated, patient was found to have elevated potassium levels of 8.4, patient was given hyperkalemia protocol and received sodium bicarb, Lokelma, insulin and dextrose. Chest x-ray done showed large left pleural effusion small right pleural effusion, patient was transferred to [facility]. Patient has been complaining of shortness of breath on exertion and rest. Denies any chest pain. There is complaint of swelling of lower extremities. Patient complaining of nonproductive cough. Denies any fevers or chills Patient admitted to internal medicine service 04/03. Patient seen and examined. 2D echo done showed LVEF of 35% with global hypokinesis, severe biatrial enlargement, moderate mitral regurg, severe aortic stenosis. 04/04. Patient seen and examined. States breathing is improving, still gets short of breath on exertion. 04/05. Patient seen and examined. Patient being planned for thoracentesis this morning with pulmonary medicine. States breathing is improved. Denies any nausea or vomiting 04/06. Patient seen and examined. States breathing has improved, feels much better after thoracentesis yesterday. Labs done this morning showed WBC 8.7, hemoglobin 7.7, platelet count 139, sodium 139, potassium 4.2, BUN 90, creatinine 4 04/07/2023 Patient is currently sitting up in the chair. Awake alert and oriented 3. Currently on 2 L oxygen via nasal cannula. Patient is being cannula on by mouth twice a day. Also on DuoNeb's and Pulmicort inhalation. No comments of nausea or vomiting. Tolerating oral diet. No bowel movement today. Laboratory data showed sodium 138 potassium 4.0 chloride 95 BUN 91.1 and creatinine 4.0 Patient is being followed by pulmonary and nephrology. Chest x-ray showed increasing consolidation and pleural effusion on the left. Likely represent a hydropneumothorax of approximately 5-10% pneumothorax noted. No significant interval change. REVIEW OF SYSTEMS: CONSTITUTIONAL: No fever, no malaise,. CARDIOVASCULAR: No chest pain, no palpitations, no syncope. PULMONARY: As mentioned above GASTROINTESTINAL: No diarrhea, no nausea, no vomiting, no abdominal pain. NEUROLOGICAL: No headaches, no weakness, PHYSICAL EXAMINATION: GENERAL: The patient is alert and oriented x3, not in any acute distress. Well developed, well nourished. HEENT: Pupils are round and equally reacting to light. EOMI. No scleral icterus. No conjunctival pallor. Normocephalic, atraumatic. No pharyngeal erythema. No thyromegaly. CARDIOVASCULAR: S1 and S2 present. No murmurs, rubs, or gallops. PULMONARY: Coarse breath sound bilaterally, diminished at the bases, crackles audible ABDOMEN: Soft, nontender, nondistended, normoactive bowel sounds. No palpable organomegaly. MUSCULOSKELETAL: No joint swelling or deformity. EXTREMITIES: No cyanosis, clubbing, or pedal edema. NEUROLOGICAL: Gross neurological examination did not reveal any focal deficits. SKIN: No rashes. Assessment and plan Hyperkalemia due to acute kidney injury. Improved.. Acute hypoxic respiratory failure due to acute CHF and fluid overload. Status post left thoracentesis on 04/05/2023. Transudate. Fluid cytopathology is pending. Repeat chest x-ray today showed hydropneumothorax approximately 5-10%. Acute on chronic kidney disease. Ejection fraction 35% with global hypokinesis, severe bilateral enlargement, moderate MR and severe aortic stenosis. Acute on chronic systolic CHF History paroxysmal A-fib on anticoagulation with liquids. COPD Lactic acidosis Bilateral pleural effusion aortic stenosis BPH Monitor vital signs Monitor CBC Monitor CMP Continue telemetry monitoring 2D echo done showed LVEF of 35% with global hypokinesis, severe biatrial enlargement, moderate mitral regurg, severe aortic stenosis. Avoid nephrotoxic agents Continue breathing treatment Consent with by mouth Lasix 40 minutes by mouth twice a day. Status post left-sided thoracentesis with removal of 1.4 L of fluid on . Cytology is pending. Nephrology following Pulmonology following, Cardiology following Labs and medication were reviewed.. Monitor labs and vitals. DVT and GI prophylaxis. Dictation was produced using [employer] software. please excuse any grammatical, word or spelling errors. Objective - Vital Signs Vital signs: Vital Signs Temp 97.8 F 04/07/23 14:56 Pulse 70 04/07/23 20:25 Resp 19 04/07/23 14:56 BP 126/46 04/07/23 14:56 Pulse Ox 97 04/07/23 14:56 FiO2 Intake & Output 04/07/23 04/07/23 04/08/23 06:59 18:59 06:59 Output Total 900 Balance -900 Weight 62.5 kg Output: Urine 900 Other: Voiding Method Indwelling Catheter Indwelling Catheter - Labs CBC & Chem 7: 04/08/23 04:35 04/07/23 06:57 Labs: Abnormal Lab Results - Last 24 Hours (Table) 04/07/23 Range/Units 06:57 Chloride 95 L (96-109) mmol/L Anion Gap 13.60 H (4.00-12.00) mmol/L BUN 91.1 H (9.0-27.0) mg/dL Creatinine 4.0 H (0.6-1.5) mg/dL Est GFR (CKD-EPI) 14 L (>=60) BUN/Creatinine Ratio 22.78 H (12.00-20.00) Ratio Microbiology - Last 24 Hours (Table) 04/05/23 10:00 Gram Stain - Preliminary Pleural Fluid Body Fluid Culture - Preliminary 04/05/23 10:00 Acid Fast Bacilli Smear - Preliminary Pleural Fluid Assessment and Plan Time with Patient: Greater than 30
--- NOTE | 2023-04-08 10:09 | XR ---
EXAMINATION TYPE: XR chest 1V portable DATE OF EXAM: 04/08/2023 COMPARISON: 04/07/2019 HISTORY: Left pneumothorax TECHNIQUE: Single frontal view of the chest is obtained. FINDINGS: There remains a small left-sided hydropneumothorax similar in size from prior exam. Small right pleural effusion and basilar consolidation. Heart size stable. Atherosclerotic change aorta. De generative changes of the spine. Arthropathy of the shoulder IMPRESSION: 1. Stable small moderate sized pleural effusion 2. Stable left-sided hydropneumothorax
--- NOTE | 2023-04-08 10:15 | P.PN ---
Subjective Progress Note Date: 04/08/23 HISTORY OF PRESENT ILLNESS: This is an 87-year-old male patient of Dr. Rhodes with past medical history of permanent atrial fibrillation, hypertension, dyslipidemia, chronic systolic heart failure, valvular heart disease, chronic kidney disease, chronic anemia. We have been asked to evaluate the patient for CHF. Patient states he has had sudden onset of shortness of breath since Thursday slowly worsening. He states he is taking all of his medications as directed. He is seen today in the emergency center waiting for bed on the cardiac stepdown unit. He states he continues to have some shortness of breath and dry mouth. Patient has has had multiple medication administrations for hyperkalemia managed by nephrology. He is status post IV Lasix 60 mg times once followed by 40 mg times once. Pulmonary medicine following and planning for possible thoracentesis. EKG atrial fibrillation with left bundle branch block Chest x-ray: Cardiomegaly, pulmonary vascular congestion, diffuse interstitial opacities concerning for pulmonary edema. Small right and moderate left lateral effusion. Left basilar airspace disease atelectasis or pneumonia. Chest ultrasound revealed left pleural effusion 8.3 cm pocket. WBC 8.4, hemoglobin 10.7, platelet count 121. INR 1.2. Sodium 138. Initial potassium 8.4 followed by 5.6 and 6.2. BUN 89 creatinine 3.67. Blood sugar 121. Initial lactic acid 3.8 followed by 1.6. Troponin negative x 1. proBNP 57,800. Liver function test within normal limits. Magnesium 2.3. Urinalysis negative for infection. Group A strep not detected. Home cardiac medications: Amlodipine 5 mg daily, Eliquis 2.5 mg twice daily, Lasix 20 mg daily, hydralazine 25 mg twice daily, lovastatin 20 mg at bedtime. Echocardiogram performed on 08/29/2022 revealed EF of 45%, mild to moderate mitral regurgitation. 04/03 Patient is seen today in follow-up and remains in the ER waiting for a bed on the cardiac stepdown unit. Repeat blood work reveals potassium of 5.6, BUN 87 creatinine 3.73. Patient is followed by nephrology. Echocardiogram reveals EF of 30 to 35%, severe biatrial enlargement, moderate mitral rotation. Decreased aortic valve leaflet excursion likely moderate a ortic stenosis. Moderate tricuspid regurgitation. Pleural effusion noted. 04/04/2023 Patient examined this morning at the bedside. Patient denies any chest pain or pressure. He denies shortness of breath. He remains on IV Lasix twice a day. No plans for thoracentesis per pulmonary medicine. Patient has been resumed on Eliquis. Vital signs are stable. Blood pressure 114/57. 04/05/2023 Patient examined this morning at the bedside. Patient does report feeling somewhat more short of breath today in comparison to yesterday. He denies any chest pain or pressure. He remains on IV diuretics. Patient's Eliquis has been placed on hold. Plan is for possible thoracentesis today with pulmonary medicine 04/06 Yesterday, patient underwent thoracentesis with removal of [address] Reddy. Cytology is pending. Chest x-ray showed a significant improvement yesterday but it appears that the pleural effusion is returning. Patient denies having any chest pain now. He states he has chronic shortness of breath on and off for a long period of time. He does feel a lot better since yesterday's thoracentesis. He continues to have cough decreasing wheezing. Blood pressure 117/52, heart rate 72, pulse ox 96% on 2 L nasal cannula. Repeat blood work reveals hemoglobin of 7.7, sodium 139, potassium 4.2, BUN 90 and creatinine 4. Patient is also followed by nephrology for acute kidney injury. Patient has been maintained on IV Lasix 60 mg twice daily. Patient had a negative fluid balance yesterday and today and -2750. Weight is trending down. 04/07 Patient states he has more shortness of breath from yesterday and had trouble all through the night with his breathing. Pulse ox is 96% on 2 L, blood pressure 127/70, heart rate 71. Patient has a documented negative fluid balance yesterday of 2750. Weight is trending down. No repeat blood work is available at the time of this dictation. Patient has been on IV Lasix changed over to oral Lasix by nephrology yesterday. Patient states that he was told yesterday that he will not have any further thoracentesis. We will plan to confirm this with pulmonary medicine. 04/08 Patient states that his breathing is better today. He still has lower extremity edema but improving. He is currently maintained on oral Lasix 40 mg twice daily per nephrology. Patient had 2 runs of nonsustained ventricular tachycardia at 7 and 8 beats. Patient was asymptomatic. Blood pressure 115/66, heart rate in the 60s, pulse ox 94% on [address] of the chest performed yesterday revealed moderate size bilateral pleural effusions left appears somewhat loculated. Left anterior pneumothorax 15 to 20%. Consolidation and partial collapse of the left lung. Opacity in the posterior right lung likely atelectasis with superimposed infection unable to be excluded. Stable mediastinal nodes. Mild cardiomegaly. Severe coronary artery calcification and/or stents. Small pericardial effusion. Severe atherosclerotic calci fications of the aorta and branches. Enlarged pulmonary trunk can be seen in pulmonary hypertension. Repeat chest x-ray this morning reveals stable small moderate size pleural effusion. Stable left-sided hydropneumothorax. Repeat blood work reveals hemoglobin of 7.7. Potassium 3.9, BUN 96 and creatinine 3.9. PHYSICAL EXAM: VITAL SIGNS: Reviewed. GENERAL: Well-developed in no acute distress. NECK: Supple. No JVD or thyromegaly LUNGS: Respirations even and unlabored. Lungs diminished breath sounds with bilateral wheezing. HEART: Irregular rate and rhythm. S1 and S2 heard. Systolic murmur noted. EXTREMITIES: Normal range of motion. No clubbing or cyanosis. Peripheral pulses intact. 1+ pitting lower extremity edema ASSESSMENT: Acute on chronic systolic heart failure Pleural effusion Acute kidney injury and chronic kidney disease Severe hyperkalemia Permanent atrial fibrillation currently rate controlled Hypertension Dyslipidemia Valvular heart disease with moderate mitral regurgitation Chronic anemia Nonsustained ventricular tachycardia PLAN: Continue current cardiac medications Continue oral Lasix per nephrology Daily weights, accurate I&O, and monitoring of kidney function Resume Eliquis if okay with pulmonary medicine Add Toprol XL 25 mg daily for V. tach Continue telemetry monitoring Further recommendations pending patient course Nurse practitioner note has been reviewed by physician. Signing provider agrees with the documented findings, assessment, and plan of care documented by [employer] as a scribe. Objective - Vital Signs Vital signs: Vital Signs Temp 98.1 F 04/08/23 07:53 Pulse 68 04/08/23 10:01 Resp 17 04/08/23 07:53 BP 115/66 04/08/23 07:53 Pulse Ox 98 04/08/23 10:01 FiO2 Intake & Output 04/07/23 04/08/23 04/08/23 18:59 06:59 18:59 Intake Total 10 Output Total 900 500 Balance -900 -490 Weight 62.5 kg 71.2 kg Intake: IV 10 Invasive Line 3 10 Output: Urine 900 500 Other: Voiding Method Indwelling Catheter Indwelling Catheter # Bowel Movements 1 - Labs CBC & Chem 7: 04/08/23 04:35 04/08/23 04:35 Labs: Abnormal Lab Results - Last 24 Hours (Table) 04/07/23 04/08/23 04/08/23 Range/Units 06:57 04:35 04:35 RBC 2.46 L (4.40-5.60) X 10*6/uL Hgb 7.7 L (13.0-17.0) g/dL Hct 24.1 L (39.6-50.0) % MCV 98.0 H (80.0-97.0) FL RDW 16.3 H (11.5-14.5) % MPV 12.4 H (9.5-12.2) FL Immature Gran # 0.05 H (0.00-0.04) X 10*3/uL Eosinophils # 0.76 H (0.04-0.35) X 10*3/uL Chloride 95 L 95 L (96-109) mmol/L Anion Gap 13.60 H 14.60 H (4.00-12.00) mmol/L BUN 91.1 H 96.5 H (9.0-27.0) mg/dL Creatinine 4.0 H 3.9 H (0.6-1.5) mg/dL Est GFR (CKD-EPI) 14 L 14 L (>=60) BUN/Creatinine Ratio 22.78 H 24.74 H (12.00-20.00) Ratio Microbiology - Last 24 Hours (Table) 04/05/23 10:00 Gram Stain - Preliminary Pleural Fluid Body Fluid Culture - Preliminary
[2023-04-08] MEDS: APIXABAN 2.5 MG TABLET PO SCH (10:47)
[2023-04-08] MEDS: METOPROLOL SUCCINATE (ER) 25 MG TAB.ER.24H PO SCH (10:47)
--- NOTE | 2023-04-08 12:03 | P.PN ---
Subjective Progress Note Date: 04/08/23 I am seeing this patient in consultation today 04/02/2023 for dyspnea and left- sided pleural effusion. He is currently in the emergency room. He was transferred from [facility] late last night for severe hyperkalemia and acute kidney injury. Patient is a 87-year-old white male with past medical history significant for chronic kidney disease, congestive heart failure, atrial fibrillation anticoagulated on Eliquis, hyperlipidemia, COPD, and BPH. Patient is technically a poor historian. Apparently, he is complaining of shortness of breath, weakness and sore throat over the last several days. This progressively worsened, and he went into [facility] to be evaluated. Patient was found to be severely hyperkalemic. He was also found to be anemic and was transfused 1 unit PRBC. He was transferred to [facility]. Patient is currently resting in bed, on 2 L/min nasal cannula, in no acute distress. He is weak and cannot sit up in bed without assistance. Becomes short of breath with any kind of activity. He denies any chest pain, heart palpitations, or syncopal events. He does have bilateral lower extremity swelling. He has an occasional nonproductive cough. Denies any sputum production, fevers. Chest x-ray on arrival shows cardiomegaly, pulmonary vascu lar congestion, and interstitial edema. There is a moderate to large left-sided pleural effusion and small right pleural effusion.. Patient was given 60 mg of IV Lasix. A Riley catheter was inserted, and the patient has approximately 800 mL of concentrated urine. Patient states that earlier in the week he has had troubles urinating. He voids about 2-3 times per day. Endorses dysuria. Denies any hematuria, urinary frequency. Urinalysis on arrival not concerning for UTI. Trace protein. He does have baseline chronic kidney disease. Ultrasound of the abdomen and bladder did not show any hydronephrosis. Potassium level on arrival was elevated at 8.4 and is down to 5 point 3:06 amp sodium bicarb, 10 g Lokelma, 10 units insulin, 2 A D50 W, calcium gluconate, and the above-mentioned Lasix. Nephrology has been consulted. There is D5W with 3 amp sodium bicarb infusing at 50 MLS per hour. BMP on arrival has a sodium 138, testing 8.4, chloride 108, serum bicarb 18, BUN 74, creatinine 3.68, and glucose 85. Lactic acid level was 3.8 on arrival and is down to 1.6. Troponin less daniel n 0.012. NT proBNP 57,800. ECG shows normal sinus rhythm with chronic left bundle branch block without any obvious hyperkalemic changes. CBC on arrival: WBC count 8.4, hemoglobin 10.7, hematocrit 34, platelets 121. Group A strep negative. No signs of bleeding. Patient has chronic anemia. Patient denies any acute blood loss. No bloody bowel movements, melena, hematemesis. No abdominal pain or diarrhea. Vital signs are stable. The patient is seen today April 03, 2023 in follow-up in the emergency department. He is currently sitting up on the stretcher. Awake and alert in no acute distress. He is breathing a bit easier today compared to yesterday. He states he is about 50% better. He is still somewhat bronchospastic and wheezing. White count 8.6. Hemoglobin 8.1. Platelets 127. Sodium 139. Potassium 5.0. BUN 89. Creatinine 4.02. Glucose 118. He is continued on IV diuretics. Anticoagulated with Eliquis. Continued on bronchodilators. Currently in a -1.2 L balance. Making good urine. The patient is seen today April 04, 2023 in follow-up on the regular medical floor. He is awake and alert in no acute distress. Resting fairly comfortably in bed. Denies any worsening shortness of breath, cough or congestion. He is maintaining O2 saturation in the 90s on 2 L/min per nasal cannula. Chest x-ray does reveal increasing left pleural effusion and a right-sided pleural effusion. Echocardiogram confirms a right-sided pleural effusion measuring 11.9 cm, left- sided pleural effusion at 10.8 cm. The patient is currently on Eliquis this will be placed on hold for possible left-sided thoracentesis tomorrow. Count 9.0. Hemoglobin 7.8. Platelets 140. Sodium 140. Potassium 4.8. Bicarb 28. BUN 87. Creatinine 4.1. Glucose 88. He remains on Lasix 60 mg IV twice a day. Currently net -1.5 L balance The patient is seen today April 05, 2023 in follow-up on the regular medical floor. He is currently sitting up in bed. Awake and alert in no acute distress. He is maintaining O2 saturations in the 90s 2 L/min per nasal cannula. He is been afebrile. Hemodynamically stable. He did undergo a left- sided thoracentesis today with 1.4 L of straw-colored fluid removed. Fluid sent for analysis and cytology. Follow-up chest x-ray reveals a tiny left apical pneumothorax. Sodium 137. Potassium 4.1. Bicarb 31. BUN 97. Creatinine 3.86. Glucose 101. Remains on IV diuretics. Currently in a -2.8 L balance. The patient is seen today April 06, 2023 in follow-up on the regular medical floor. He is awake and alert no acute distress. He is resting comfortably in bed. He is maintaining good O2 saturations in the 90s on 2 L/min per nasal cannula. He remains on IV diuretics. Currently net -2.7 L balance. He is status post left-sided thoracentesis yesterday with 1.4 L of straw-colored fluid removed. Cytology pending. Fluid analysis transudate with a total protein of 2.6 and an LDH of 80. Today's chest x-ray shows small bilateral effusions. No evidence of pneumothorax. Count 8.7. Hemoglobin 7.7. Platelets 139. Sodium 1 39. Potassium 4.2. Bicarb 29. BUN 91. Creatinine 4.0. The patient is seen today April 07, 2023 in follow-up on the regular medical floor. He is resting comfortably in bed. Awake and alert in no acute distress. Maintaining O2 saturations in the 90s on 2 L/min per nasal cannula. He is cont inued on bronchodilators and oral diuretics. Currently net -1.2 L balance. Follow-up chest x-ray revealed creasing consolidation and pleural effusion on the left. Likely represents a hydropneumothorax of approximately 5 to 10% pneumothorax noted. No significant change. The patient is seen today April 08, 2023 in follow-up on the regular medical floor. He is awake and alert in no acute distress. Maintaining O2 saturations in the 90s on 2 L/min per nasal cannula. Laying in bed. CT scan of the chest revealed moderate-sized bilateral pleural effusions. Left effusion appears loculated and there is additionally a left anterior pneumothorax at approximately 15 to 20%. Consolidation and partial collapse of the left lung. Atelectasis in the right posterior lung. Pleural fluid cultures revealed no growth, no malignancy. No plans for chest tube placement. Eliquis has been resumed. White count 8.5. Hemoglobin 7.7. Platelets 146. Sodium 139. Potassium 3.9. Bicarb 29. BUN 96. Creatinine 3.9. Objective - Vital Signs Vital signs: Vital Signs Temp 98.1 F 04/08/23 07:53 Pulse 70 04/08/23 10:11 Resp 17 04/08/23 07:53 BP 115/66 04/08/23 07:53 Pulse Ox 98 04/08/23 10:01 FiO2 Intake & Output 04/07/23 04/08/23 04/08/23 18:59 06:59 18:59 Intake Total 10 Output Total 900 500 Balance -900 -490 Weight 62.5 kg 71.2 kg Intake: IV 10 Invasive Line 3 10 Output: Urine 900 500 Other: Voiding Method Indwelling Catheter Indwelling Catheter # Bowel Movements 1 - Exam GENERAL EXAM: Alert, 87-year-old male, on 2 L nasal cannula, in no apparent distress. HEAD: Normocephalic and atraumatic EYES: Normal reaction of pupils, equal size. NOSE: Clear with pink turbinates. THROAT: Mild erythema, no exudates NECK: No masses, no JVD. CHEST: No chest wall deformity. LUNGS: Equal air entry with right basilar inspiratory crackles. No conversational dyspnea. CVS: S1 and S2 normal with no audible murmur, regular rhythm. No extra heart sounds ABDOMEN: No hepatosplenomegaly, active bowel sounds, no guarding or rigidity. SPINE: No scoliosis or deformity SKIN: No rashes CENTRAL NERVOUS SYSTEM: No focal deficits, tone is normal in all 4 extremities. EXTREMITIES: There is moderate bilateral lower extremity nonpitting edema. No clubbing, or cyanosis. Peripheral pulses are intact. - Labs CBC & Chem 7: 04/08/23 04:35 04/08/23 04:35 Labs: Abnormal Lab Results - Last 24 Hours (Table) 04/07/23 04/08/23 04/08/23 Range/Units 06:57 04:35 04:35 RBC 2.46 L (4.40-5.60) X 10*6/uL Hgb 7.7 L (13.0-17.0) g/dL Hct 24.1 L (39.6-50.0) % MCV 98.0 H (80.0-97.0) FL RDW 16.3 H (11.5-14.5) % MPV 12.4 H (9.5-12.2) FL Immature Gran # 0.05 H (0.00-0.04) X 10*3/uL Eosinophils # 0.76 H (0.04-0.35) X 10*3/uL Chloride 95 L 95 L (96-109) mmol/L Anion Gap 13.60 H 14.60 H (4.00-12.00) mmol/L BUN 91.1 H 96.5 H (9.0-27.0) mg/dL Creatinine 4.0 H 3.9 H (0.6-1.5) mg/dL Est GFR (CKD-EPI) 14 L 14 L (>=60) BUN/Creatinine Ratio 22.78 H 24.74 H (12.00-20.00) Ratio Microbiology - Last 24 Hours (Table) 04/05/23 10:00 Gram Stain - Preliminary Pleural Fluid Body Fluid Culture - Preliminary Assessment and Plan Assessment: Acute hypoxemic respiratory failure, secondary to acute systolic CHF exacerbation and fluid overload. Chest x-ray shows cardiomegaly, pulmonary vascular congestion, and interstitial edema. Patient also has moderate to large left-sided pleural effusion and a small right pleural effusion. NT proBNP was elevated at 57,800. Status post left-sided thoracentesis April 05, 2023 with 1.4 L of straw-colored fluid removed. Fluid analysis transudate, cytology pending. CT scan of the chest and follow-up chest x-ray reveals stable hydropneumothorax of approximately 15 to 20% Acute on chronic kidney disease Severe hyperkalemia, improved Lactic acidosis, improved Chronic obstructive pulmonary disease, stable History of paroxysmal atrial fibrillation, anticoagulated on Eliquis, currently normal sinus Benign prostatic hyperplasia Anemia of chronic disease, patient reportedly received 1 unit PRBC at [facility] Plan: The patient was seen and evaluated CT scan of the chest, chest x-ray, labs and medications reviewed Continues with stable left pneumothorax No plans for chest tube insertion Eliquis resumed Continued on diuretics We will continue to follow I have personally seen and examined the patient, performed the documentation and the assessment and plan as written. Number of minutes spent on the visit: 10.
--- NOTE | 2023-04-08 17:30 | P.PN ---
Subjective Patient is seen for follow-up for acute kidney injury on top of chronic kidney disease. Serum creatinine at 4.0. Baseline creatinine around 3 mg/dL. Urine output at 1.4 L for 24 hours. Maintained on oral Lasix. No complaints of shortness of breath. Overall feeling better. Objective - Vital Signs Vital signs: Vital Signs Temp 98.0 F 04/08/23 13:18 Pulse 60 04/08/23 13:18 Resp 19 04/08/23 13:18 BP 112/56 04/08/23 13:18 Pulse Ox 100 04/08/23 13:18 FiO2 Intake & Output 04/07/23 04/08/23 04/08/23 18:59 06:59 18:59 Intake Total 10 Output Total 900 500 Balance -900 -490 Weight 62.5 kg 71.2 kg Intake: IV 10 Invasive Line 3 10 Output: Urine 900 500 Other: Voiding Method Indwelling Catheter Indwelling Catheter Indwelling Catheter # Bowel Movements 1 - Exam Patient is awake, comfortable, no acute distress Examination of the heart S1 and S2 Examination of the lungs bilateral breath sounds are heard Abdomen is soft nontender Examination lower extremities shows no significant edema 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 - Labs CBC & Chem 7: 04/08/23 04:35 04/08/23 04:35 Labs: Abnormal Lab Results - Last 24 Hours (Table) 04/08/23 04/08/23 Range/Units 04:35 04:35 RBC 2.46 L (4.40-5.60) X 10*6/uL Hgb 7.7 L (13.0-17.0) g/dL Hct 24.1 L (39.6-50.0) % MCV 98.0 H (80.0-97.0) FL RDW 16.3 H (11.5-14.5) % MPV 12.4 H (9.5-12.2) FL Immature Gran # 0.05 H (0.00-0.04) X 10*3/uL Eosinophils # 0.76 H (0.04-0.35) X 10*3/uL Chloride 95 L (96-109) mmol/L Anion Gap 14.60 H (4.00-12.00) mmol/L BUN 96.5 H (9.0-27.0) mg/dL Creatinine 3.9 H (0.6-1.5) mg/dL Est GFR (CKD-EPI) 14 L (>=60) BUN/Creatinine Ratio 24.74 H (12.00-20.00) Ratio Microbiology - Last 24 Hours (Table) 04/05/23 10:00 Gram Stain - Preliminary Pleural Fluid Body Fluid Culture - Preliminary Assessment and Plan Assessment: 1. Acute kidney injury secondary to ATN secondary to anemia and secondary to urinary retention. Renal function slightly worse from diuresis and Lasix has been decreased. No hydronephrosis noted on kidney ultrasound. 2. Chronic kidney disease stage IV with baseline creatinine near 3 secondary to nephrosclerosis and obstructive uropathy. 3. Hyperkalemia secondary to acute kidney injury, acidosis and urinary retention. Improved with medical management. 4. Volume overload with pleural effusions. 5. Acute blood loss anemia status post blood transfusion this admission. 6. Acute on chronic systolic CHF ejection fraction of 30 to 35% with moderate mitral and tricuspid regurgitation. 7. Metabolic acidosis secondary to acute kidney injury improved with bicarb drip. 8. Urinary retention status post Riley catheter placement. On Flomax. 9. Left hydropneumothorax, stable Plan: Continue with current dose of oral Lasix. Briefly discussed renal replacement therapy if renal function worsens or volume status worsens. No indication for dialysis currently. Close follow-up as outpatient for ABRIL Flowers
[2023-04-08] MEDS: SIMETHICONE 80 MG CHEWABLE PO PRN (20:50)
--- NOTE | 2023-04-09 10:56 | P.PN ---
Subjective Progress Note Date: 04/09/23 HISTORY OF PRESENT ILLNESS: This is an 87-year-old male patient of Dr. Rhodes with past medical history of permanent atrial fibrillation, hypertension, dyslipidemia, chronic systolic heart failure, valvular heart disease, chronic kidney disease, chronic anemia. We have been asked to evaluate the patient for CHF. Patient states he has had sudden onset of shortness of breath since Thursday slowly worsening. He states he is taking all of his medications as directed. He is seen today in the emergency center waiting for bed on the cardiac stepdown unit. He states he continues to have some shortness of breath and dry mouth. Patient has has had multiple medication administrations for hyperkalemia managed by nephrology. He is status post IV Lasix 60 mg times once followed by 40 mg times once. Pulmonary medicine following and planning for possible thoracentesis. EKG atrial fibrillation with left bundle branch block Chest x-ray: Cardiomegaly, pulmonary vascular congestion, diffuse interstitial opacities concerning for pulmonary edema. Small right and moderate left lateral effusion. Left basilar airspace disease atelectasis or pneumonia. Chest ultrasound revealed left pleural effusion 8.3 cm pocket. WBC 8.4, hemoglobin 10.7, platelet count 121. INR 1.2. Sodium 138. Initial potassium 8.4 followed by 5.6 and 6.2. BUN 89 creatinine 3.67. Blood sugar 121. Initial lactic acid 3.8 followed by 1.6. Troponin negative x 1. proBNP 57,800. Liver function test within normal limits. Magnesium 2.3. Urinalysis negative for infection. Group A strep not detected. Home cardiac medications: Amlodipine 5 mg daily, Eliquis 2.5 mg twice daily, Lasix 20 mg daily, hydralazine 25 mg twice daily, lovastatin 20 mg at bedtime. Echocardiogram performed on 08/29/2022 revealed EF of 45%, mild to moderate mitral regurgitation. 04/03 Patient is seen today in follow-up and remains in the ER waiting for a bed on the cardiac stepdown unit. Repeat blood work reveals potassium of 5.6, BUN 87 creatinine 3.73. Patient is followed by nephrology. Echocardiogram reveals EF of 30 to 35%, severe biatrial enlargement, moderate mitral rotation. Decreased aortic valve leaflet excursion likely moderate a ortic stenosis. Moderate tricuspid regurgitation. Pleural effusion noted. 04/04/2023 Patient examined this morning at the bedside. Patient denies any chest pain or pressure. He denies shortness of breath. He remains on IV Lasix twice a day. No plans for thoracentesis per pulmonary medicine. Patient has been resumed on Eliquis. Vital signs are stable. Blood pressure 114/57. 04/05/2023 Patient examined this morning at the bedside. Patient does report feeling somewhat more short of breath today in comparison to yesterday. He denies any chest pain or pressure. He remains on IV diuretics. Patient's Eliquis has been placed on hold. Plan is for possible thoracentesis today with pulmonary medicine 04/06 Yesterday, patient underwent thoracentesis with removal of [address] Reddy. Cytology is pending. Chest x-ray showed a significant improvement yesterday but it appears that the pleural effusion is returning. Patient denies having any chest pain now. He states he has chronic shortness of breath on and off for a long period of time. He does feel a lot better since yesterday's thoracentesis. He continues to have cough decreasing wheezing. Blood pressure 117/52, heart rate 72, pulse ox 96% on 2 L nasal cannula. Repeat blood work reveals hemoglobin of 7.7, sodium 139, potassium 4.2, BUN 90 and creatinine 4. Patient is also followed by nephrology for acute kidney injury. Patient has been maintained on IV Lasix 60 mg twice daily. Patient had a negative fluid balance yesterday and today and -2750. Weight is trending down. 04/07 Patient states he has more shortness of breath from yesterday and had trouble all through the night with his breathing. Pulse ox is 96% on 2 L, blood pressure 127/70, heart rate 71. Patient has a documented negative fluid balance yesterday of 2750. Weight is trending down. No repeat blood work is available at the time of this dictation. Patient has been on IV Lasix changed over to oral Lasix by nephrology yesterday. Patient states that he was told yesterday that he will not have any further thoracentesis. We will plan to confirm this with pulmonary medicine. 04/08 Patient states that his breathing is better today. He still has lower extremity edema but improving. He is currently maintained on oral Lasix 40 mg twice daily per nephrology. Patient had 2 runs of nonsustained ventricular tachycardia at 7 and 8 beats. Patient was asymptomatic. Blood pressure 115/66, heart rate in the 60s, pulse ox 94% on [address] of the chest performed yesterday revealed moderate size bilateral pleural effusions left appears somewhat loculated. Left anterior pneumothorax 15 to 20%. Consolidation and partial collapse of the left lung. Opacity in the posterior right lung likely atelectasis with superimposed infection unable to be excluded. Stable mediastinal nodes. Mild cardiomegaly. Severe coronary artery calcification and/or stents. Small pericardial effusion. Severe atherosclerotic calci fications of the aorta and branches. Enlarged pulmonary trunk can be seen in pulmonary hypertension. Repeat chest x-ray this morning reveals stable small moderate size pleural effusion. Stable left-sided hydropneumothorax. Repeat blood work reveals hemoglobin of 7.7. Potassium 3.9, BUN 96 and creatinine 3.9. 04/09 And has been resumed on Eliquis starting yesterday. He denies having any chest pain. He states he is eating and drinking okay. He has a Riley catheter in place. Yesterday patient was started on metoprolol due to nonsustained ventricular tachycardia. His heart rate has been mostly in the 50s nursing concerned that he did drop to the 40s during the night. Blood pressure 109/61, pulse ox 99% on 3 L nasal cannula. Currently heart rate is in the range of 58- 68. He has had no further episodes of ventricular tachycardia. No repeat blood work available today. PHYSICAL EXAM: VITAL SIGNS: Reviewed. GENERAL: Well-developed in no acute distress. NECK: Supple. No JVD or thyromegaly LUNGS: Respirations even and unlabored. Lungs diminished breath sounds with bilateral wheezing. HEART: Irregular rate and rhythm. S1 and S2 heard. Systolic murmur noted. EXTREMITIES: Normal range of motion. No clubbing or cyanosis. Peripheral pulses intact. Mild pitting lower extremity edema ASSESSMENT: Acute on chronic systolic heart failure Pleural effusion Acute kidney injury and chronic kidney disease Severe hyperkalemia Permanent atrial fibrillation currently rate controlled Hypertension Dyslipidemia Valvular heart disease with moderate mitral regurgitation Chronic anemia Nonsustained ventricular tachycardia PLAN: Continue current cardiac medications Continue oral Lasix per nephrology Daily weights, accurate I&O, and monitoring of kidney function Continue Eliquis Decrease Toprol-XL to 12.5 mg daily Continue telemetry monitoring Patient is cleared from cardiology for discharge and may follow-up with Dr. Rhodes in 1 to 2 weeks. Nurse practitioner note has been reviewed by physician. Signing provider agrees with the documented findings, assessment, and plan of care documented by BULK PICKER as a scribe. Objective - Vital Signs Vital signs: Vital Signs Temp 97.9 F 04/09/23 06:55 Pulse 64 04/09/23 09:31 Resp 19 04/09/23 06:55 BP 109/61 04/09/23 06:55 Pulse Ox 99 04/09/23 06:55 FiO2 Intake & Output 04/08/23 04/09/23 04/09/23 18:59 06:59 18:59 Intake Total 480 100 Output Total 600 500 Balance -600 -20 100 Weight 71 kg Intake: Oral 480 100 Output: Urine 600 500 Other: Voiding Method Indwelling Catheter Indwelling Catheter # Bowel Movements 1 - Labs CBC & Chem 7: 04/08/23 04:35 04/08/23 04:35 Labs: Microbiology - Last 24 Hours (Table) 04/05/23 10:00 Gram Stain - Preliminary Pleural Fluid Body Fluid Culture - Preliminary
--- NOTE | 2023-04-09 13:08 | P.PN ---
Subjective Progress Note Date: 04/09/23 I am seeing this patient in consultation today 04/02/2023 for dyspnea and left- sided pleural effusion. He is currently in the emergency room. He was transferred from [facility] late last night for severe hyperkalemia and acute kidney injury. Patient is a 87-year-old white male with past medical history significant for chronic kidney disease, congestive heart failure, atrial fibrillation anticoagulated on Eliquis, hyperlipidemia, COPD, and BPH. Patient is technically a poor historian. Apparently, he is complaining of shortness of breath, weakness and sore throat over the last several days. This progressively worsened, and he went into [facility] to be evaluated. Patient was found to be severely hyperkalemic. He was also found to be anemic and was transfused 1 unit PRBC. He was transferred to [facility]. Patient is currently resting in bed, on 2 L/min nasal cannula, in no acute distress. He is weak and cannot sit up in bed without assistance. Becomes short of breath with any kind of activity. He denies any chest pain, heart palpitations, or syncopal events. He does have bilateral lower extremity swelling. He has an occasional nonproductive cough. Denies any sputum production, fevers. Chest x-ray on arrival shows cardiomegaly, pulmonary vascu lar congestion, and interstitial edema. There is a moderate to large left-sided pleural effusion and small right pleural effusion.. Patient was given 60 mg of IV Lasix. A Riley catheter was inserted, and the patient has approximately 800 mL of concentrated urine. Patient states that earlier in the week he has had troubles urinating. He voids about 2-3 times per day. Endorses dysuria. Denies any hematuria, urinary frequency. Urinalysis on arrival not concerning for UTI. Trace protein. He does have baseline chronic kidney disease. Ultrasound of the abdomen and bladder did not show any hydronephrosis. Potassium level on arrival was elevated at 8.4 and is down to 5 point 3:06 amp sodium bicarb, 10 g Lokelma, 10 units insulin, 2 A D50 W, calcium gluconate, and the above-mentioned Lasix. Nephrology has been consulted. There is D5W with 3 amp sodium bicarb infusing at 50 MLS per hour. BMP on arrival has a sodium 138, testing 8.4, chloride 108, serum bicarb 18, BUN 74, creatinine 3.68, and glucose 85. Lactic acid level was 3.8 on arrival and is down to 1.6. Troponin less daniel n 0.012. NT proBNP 57,800. ECG shows normal sinus rhythm with chronic left bundle branch block without any obvious hyperkalemic changes. CBC on arrival: WBC count 8.4, hemoglobin 10.7, hematocrit 34, platelets 121. Group A strep negative. No signs of bleeding. Patient has chronic anemia. Patient denies any acute blood loss. No bloody bowel movements, melena, hematemesis. No abdominal pain or diarrhea. Vital signs are stable. The patient is seen today April 03, 2023 in follow-up in the emergency department. He is currently sitting up on the stretcher. Awake and alert in no acute distress. He is breathing a bit easier today compared to yesterday. He states he is about 50% better. He is still somewhat bronchospastic and wheezing. White count 8.6. Hemoglobin 8.1. Platelets 127. Sodium 139. Potassium 5.0. BUN 89. Creatinine 4.02. Glucose 118. He is continued on IV diuretics. Anticoagulated with Eliquis. Continued on bronchodilators. Currently in a -1.2 L balance. Making good urine. The patient is seen today April 04, 2023 in follow-up on the regular medical floor. He is awake and alert in no acute distress. Resting fairly comfortably in bed. Denies any worsening shortness of breath, cough or congestion. He is maintaining O2 saturation in the 90s on 2 L/min per nasal cannula. Chest x-ray does reveal increasing left pleural effusion and a right-sided pleural effusion. Echocardiogram confirms a right-sided pleural effusion measuring 11.9 cm, left- sided pleural effusion at 10.8 cm. The patient is currently on Eliquis this will be placed on hold for possible left-sided thoracentesis tomorrow. Count 9.0. Hemoglobin 7.8. Platelets 140. Sodium 140. Potassium 4.8. Bicarb 28. BUN 87. Creatinine 4.1. Glucose 88. He remains on Lasix 60 mg IV twice a day. Currently net -1.5 L balance The patient is seen today April 05, 2023 in follow-up on the regular medical floor. He is currently sitting up in bed. Awake and alert in no acute distress. He is maintaining O2 saturations in the 90s 2 L/min per nasal cannula. He is been afebrile. Hemodynamically stable. He did undergo a left- sided thoracentesis today with 1.4 L of straw-colored fluid removed. Fluid sent for analysis and cytology. Follow-up chest x-ray reveals a tiny left apical pneumothorax. Sodium 137. Potassium 4.1. Bicarb 31. BUN 97. Creatinine 3.86. Glucose 101. Remains on IV diuretics. Currently in a -2.8 L balance. The patient is seen today April 06, 2023 in follow-up on the regular medical floor. He is awake and alert no acute distress. He is resting comfortably in bed. He is maintaining good O2 saturations in the 90s on 2 L/min per nasal cannula. He remains on IV diuretics. Currently net -2.7 L balance. He is status post left-sided thoracentesis yesterday with 1.4 L of straw-colored fluid removed. Cytology pending. Fluid analysis transudate with a total protein of 2.6 and an LDH of 80. Today's chest x-ray shows small bilateral effusions. No evidence of pneumothorax. Count 8.7. Hemoglobin 7.7. Platelets 139. Sodium 1 39. Potassium 4.2. Bicarb 29. BUN 91. Creatinine 4.0. The patient is seen today April 07, 2023 in follow-up on the regular medical floor. He is resting comfortably in bed. Awake and alert in no acute distress. Maintaining O2 saturations in the 90s on 2 L/min per nasal cannula. He is cont inued on bronchodilators and oral diuretics. Currently net -1.2 L balance. Follow-up chest x-ray revealed creasing consolidation and pleural effusion on the left. Likely represents a hydropneumothorax of approximately 5 to 10% pneumothorax noted. No significant change. The patient is seen today April 08, 2023 in follow-up on the regular medical floor. He is awake and alert in no acute distress. Maintaining O2 saturations in the 90s on 2 L/min per nasal cannula. Laying in bed. CT scan of the chest revealed moderate-sized bilateral pleural effusions. Left effusion appears loculated and there is additionally a left anterior pneumothorax at approximately 15 to 20%. Consolidation and partial collapse of the left lung. Atelectasis in the right posterior lung. Pleural fluid cultures revealed no growth, no malignancy. No plans for chest tube placement. Eliquis has been resumed. White count 8.5. Hemoglobin 7.7. Platelets 146. Sodium 139. Potassium 3.9. Bicarb 29. BUN 96. Creatinine 3.9. The patient is seen today April 09, 2023 in follow-up on the regular medical floor. He is resting comfortably in bed. Awake and alert in no acute distress. Maintaining O2 saturations in the 90s on 2 L/min per nasal cannula. He denies any worsening shortness of breath, cough or congestion. No new labs today. No chest x-ray today. He is anticoagulated with Eliquis. Objective - Vital Signs Vital signs: Vital Signs Temp 97.9 F 04/09/23 06:55 Pulse 64 04/09/23 09:31 Resp 19 04/09/23 06:55 BP 109/61 04/09/23 06:55 Pulse Ox 99 04/09/23 06:55 FiO2 Intake & Output 04/08/23 04/09/23 04/09/23 18:59 06:59 18:59 Intake Total 480 100 Output Total 600 500 250 Balance -600 -20 -150 Weight 71 kg Intake: Oral 480 100 Output: Urine 600 500 250 Uretheral (Riley) 250 Other: Voiding Method Indwelling Catheter Indwelling Catheter Indwelling Catheter # Bowel Movements 1 - Exam GENERAL EXAM: Alert, very pleasant 87-year-old male, resting comfortably in bed, on 2 L nasal cannula, in no apparent distress. HEAD: Normocephalic and atraumatic EYES: Normal reaction of pupils, equal size. NOSE: Clear with pink turbinates. THROAT: Mild erythema, no exudates NECK: No masses, no JVD. CHEST: No chest wall deformity. LUNGS: Equal air entry with right basilar inspiratory crackles. No conversati onal dyspnea. CVS: S1 and S2 normal with no audible murmur, regular rhythm. No extra heart sounds ABDOMEN: No hepatosplenomegaly, active bowel sounds, no guarding or rigidity. SPINE: No scoliosis or deformity SKIN: No rashes CENTRAL NERVOUS SYSTEM: No focal deficits, tone is normal in all 4 extremities. EXTREMITIES: There is moderate bilateral lower extremity nonpitting edema. No clubbing, or cyanosis. Peripheral pulses are intact. - Labs CBC & Chem 7: 04/08/23 04:35 04/08/23 04:35 Labs: Microbiology - Last 24 Hours (Table) 04/05/23 10:00 Gram Stain - Preliminary Pleural Fluid Body Fluid Culture - Preliminary Assessment and Plan Assessment: Acute hypoxemic respiratory failure, secondary to acute systolic CHF exacerbation and fluid overload. Chest x-ray shows cardiomegaly, pulmonary vascular congestion, and interstitial edema. Patient also has moderate to large left-sided pleural effusion and a small right pleural effusion. NT proBNP was elevated at 57,800. Status post left-sided thoracentesis April 05, 2023 with 1.4 L of straw-colored fluid removed. Fluid analysis transudate, cytology pending. CT scan of the chest and follow-up chest x-ray reveals stable hydropneumothorax of approximately 15 to 20% Acute on chronic kidney disease Severe hyperkalemia, improved Lactic acidosis, improved Chronic obstructive pulmonary disease, stable History of paroxysmal atrial fibrillation, anticoagulated on Eliquis, currently normal sinus Benign prostatic hyperplasia Anemia of chronic disease, patient reportedly received 1 unit PRBC at [facility] Plan: The patient was seen and evaluated Medications reviewed Continue the current treatment plan Follow-up chest x-ray in a.m. We will continue to follow I have personally seen and examined the patient, performed the documentation and the assessment and plan as written. Number of minutes spent on the visit: 10.
--- NOTE | 2023-04-09 13:56 | P.PN ---
Subjective Progress Note Date: 04/08/23 Patient is a 87-year-old white male with past medical history significant for chronic kidney disease, congestive heart failure, atrial fibrillation anticoagulated on Eliquis, hyperlipidemia, COPD, and BPH, who was transferred from [facility] for severe hyperkalemia and acute kidney injury. Filiberto gomes has been complaining of shortness of breath and weakness for a few days. Patient also complaining of sore throat. Patient weakness and shortness of breath progressed so he eventually presented to [facility] where he was evaluated, patient was found to have elevated potassium levels of 8.4, patient was given hyperkalemia protocol and received sodium bicarb, Lokelma, insulin and dextrose. Chest x-ray done showed large left pleural effusion small right pleural effusion, patient was transferred to [facility]. Patient has been complaining of shortness of breath on exertion and rest. Denies any chest pain. There is complaint of swelling of lower extremities. Patient complaining of nonproductive cough. Denies any fevers or chills Patient admitted to internal medicine service 04/03. Patient seen and examined. 2D echo done showed LVEF of 35% with global hypokinesis, severe biatrial enlargement, moderate mitral regurg, severe aortic stenosis. 04/04. Patient seen and examined. States breathing is improving, still gets short of breath on exertion. 04/05. Patient seen and examined. Patient being planned for thoracentesis this morning with pulmonary medicine. States breathing is improved. Denies any nausea or vomiting 04/06. Patient seen and examined. States breathing has improved, feels much better after thoracentesis yesterday. Labs done this morning showed WBC 8.7, hemoglobin 7.7, platelet count 139, sodium 139, potassium 4.2, BUN 90, creatinine 4 04/07/2023 Patient is currently sitting up in the chair. Awake alert and oriented 3. Currently on 2 L oxygen via nasal cannula. Patient is being cannula on by mouth twice a day. Also on DuoNeb's and Pulmicort inhalation. No comments of nausea or vomiting. Tolerating oral diet. No bowel movement today. Laboratory data showed sodium 138 potassium 4.0 chloride 95 BUN 91.1 and creatinine 4.0 Patient is being followed by pulmonary and nephrology. Chest x-ray showed increasing consolidation and pleural effusion on the left. Likely represent a hydropneumothorax of approximately 5-10% pneumothorax noted. No significant interval change. 04/08/2023 Patient is currently sitting which it. Awake alert and oriented 3. requiring oxygen at a 2 L via nasal cannula. pleural fluid cultures showed no growth. No plans for chest tube placement. Pulmonary is on board. laboratory data showed sodium 139, potassium 3.9, chloride 95, BUN 96.5 and creatinine 3.1. Nephrology and pulmonology is on board. REVIEW OF SYSTEMS: CONSTITUTIONAL: No fever, no malaise,. CARDIOVASCULAR: No chest pain, no palpitations, no syncope. PULMONARY: As mentioned above GASTROINTESTINAL: No diarrhea, no nausea, no vomiting, no abdominal pain. NEUROLOGICAL: No headaches, no weakness, PHYSICAL EXAMINATION: GENERAL: The patient is alert and oriented x3, not in any acute distress. Well developed, well nourished. HEENT: Pupils are round and equally reacting to light. EOMI. No scleral icterus. No conjunctival pallor. Normocephalic, atraumatic. No pharyngeal erythema. No thyromegaly. CARDIOVASCULAR: S1 and S2 present. No murmurs, rubs, or gallops. PULMONARY: Coarse breath sound bilaterally, diminished at the bases, crackles audible ABDOMEN: Soft, nontender, nondistended, normoactive bowel sounds. No palpable organomegaly. MUSCULOSKELETAL: No joint swelling or deformity. EXTREMITIES: No cyanosis, clubbing, or pedal edema. NEUROLOGICAL: Gross neurological examination did not reveal any focal deficits. SKIN: No rashes. Assessment and plan Hyperkalemia due to acute kidney injury. Improved.. Acute hypoxic respiratory failure due to acute CHF and fluid overload. Status post left thoracentesis on 04/05/2023. Transudate. Fluid cytopathology is pending. Repeat chest x-ray today showed hydropneumothorax approximately 5-10%. Acute on chronic kidney disease. Ejection fraction 35% with global hypokinesis, severe bilateral enlargement, moderate MR and severe aortic stenosis. Acute on chronic systolic CHF History paroxysmal A-fib on anticoagulation with liquids. COPD Lactic acidosis Bilateral pleural effusion aortic stenosis BPH Monitor vital signs Monitor CBC Monitor CMP Continue telemetry monitoring 2D echo done showed LVEF of 35% with global hypokinesis, severe biatrial enlargement, moderate mitral regurg, severe aortic stenosis. Avoid nephrotoxic agents Continue breathing treatment Consent with by mouth Lasix 40 minutes by mouth twice a day. Status post left-sided thoracentesis with removal of 1.4 L of fluid on 04/05/2023. Cytology is pending. Cultures negative. No plans for chest tube placement. Nephrology following Pulmonology following, Cardiology following Labs and medication were reviewed.. Monitor labs and vitals. DVT and GI prophylaxis. Dictation was produced using [employer] dictation software. please excuse any grammatical, word or spelling errors. Objective - Vital Signs Vital signs: Vital Signs Temp 98.0 F 04/08/23 13:18 Pulse 60 04/08/23 13:18 Resp 19 04/08/23 13:18 BP 112/56 04/08/23 13:18 Pulse Ox 100 04/08/23 13:18 FiO2 Intake & Output 04/08/23 04/08/23 04/09/23 06:59 18:59 06:59 Intake Total 10 Output Total 500 600 Balance -490 -600 Weight 71.2 kg Intake: IV 10 Invasive Line 3 10 Output: Urine 500 600 Other: Voiding Method Indwelling Catheter Indwelling Catheter # Bowel Movements 1 - Labs CBC & Chem 7: 04/08/23 04:35 04/08/23 04:35 Labs: Abnormal Lab Results - Last 24 Hours (Table) 04/08/23 04/08/23 Range/Units 04:35 04:35 RBC 2.46 L (4.40-5.60) X 10*6/uL Hgb 7.7 L (13.0-17.0) g/dL Hct 24.1 L (39.6-50.0) % MCV 98.0 H (80.0-97.0) FL RDW 16.3 H (11.5-14.5) % MPV 12.4 H (9.5-12.2) FL Immature Gran # 0.05 H (0.00-0.04) X 10*3/uL Eosinophils # 0.76 H (0.04-0.35) X 10*3/uL Chloride 95 L (96-109) mmol/L Anion Gap 14.60 H (4.00-12.00) mmol/L BUN 96.5 H (9.0-27.0) mg/dL Creatinine 3.9 H (0.6-1.5) mg/dL Est GFR (CKD-EPI) 14 L (>=60) BUN/Creatinine Ratio 24.74 H (12.00-20.00) Ratio Microbiology - Last 24 Hours (Table) 04/05/23 10:00 Gram Stain - Preliminary Pleural Fluid Body Fluid Culture - Preliminary
[2023-04-09] MEDS: METOPROLOL SUCCINATE (ER) 25 MG TAB.ER.24H PO SCH (15:47)
--- NOTE | 2023-04-09 17:23 | P.PN ---
Subjective Patient is seen for follow-up for acute kidney injury on top of chronic kidney disease. Serum creatinine at 4.0. Baseline creatinine around 3 mg/dL. Urine output at 1.1 L for 24 hours. Maintained on oral Lasix. No complaints of shortness of breath. Overall feeling better. Objective - Vital Signs Vital signs: Vital Signs Temp 97.7 F 04/09/23 14:00 Pulse 60 04/09/23 14:00 Resp 17 04/09/23 14:00 BP 116/62 04/09/23 14:00 Pulse Ox 100 04/09/23 14:00 FiO2 Intake & Output 04/08/23 04/09/23 04/09/23 18:59 06:59 18:59 Intake Total 480 100 Output Total 600 500 402 Balance -600 -20 -302 Weight 71 kg 71 kg Intake: Oral 480 100 Output: Urine 600 500 250 Uretheral (Riley) 250 Post Void Residual 152 Other: Voiding Method Indwelling Catheter Indwelling Catheter Indwelling Catheter # Bowel Movements 1 - Exam Patient is awake, comfortable, no acute distress Examination of the heart S1 and S2 Examination of the lungs bilateral breath sounds are heard Abdomen is soft nontender Examination lower extremities shows no significant edema 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 Acute kidney injury secondary to ATN secondary to anemia and secondary to urinary retention. Renal function slightly worse from diuresis and Lasix has been switched to oral. No hydronephrosis noted on kidney ultrasound. 2. Chronic kidney disease stage IV with baseline creatinine near 3 secondary to nephrosclerosis and obstructive uropathy. 3. Hyperkalemia secondary to acute kidney injury, acidosis and urinary retention. Improved with medical management. 4. Volume overload with pleural effusions. 5. Acute blood loss anemia status post blood transfusion this admission. 6. Acute on chronic systolic CHF ejection fraction of 30 to 35% with moderate mitral and tricuspid regurgitation. 7. Metabolic acidosis secondary to acute kidney injury improved with bicarb drip. 8. Urinary retention status post Riley catheter placement. On Flomax. 9. Left hydropneumothorax, stable Plan: Continue with current dose of oral Lasix. Briefly discussed renal replacement therapy if renal function worsens or volume status worsens. No indication for dialysis currently. Close follow-up as outpatient for CK D Repeat labs in a.m.
--- NOTE | 2023-04-10 08:29 | XR ---
EXAMINATION TYPE: XR chest 1V portable DATE OF EXAM: 04/10/2023 COMPARISON: 04/08/1999 HISTORY: Left apical pneumothorax TECHNIQUE: Single frontal view of the chest is obtained. FINDINGS: There remains a small left-sided hydropneumothorax similar in size from prior exam. Small right pleural effusion and basilar consolidation. Heart size stable. Atherosclerotic change aorta. De generative changes of the spine. Arthropathy of the shoulder IMPRESSION: 1. Moderate to large left pleural effusion increased in size. 2. Stable left pneumothorax measuring approximately 15%
--- NOTE | 2023-04-10 10:01 | P.PN ---
Subjective Progress Note Date: 04/09/23 Patient is a 87-year-old white male with past medical history significant for chronic kidney disease, congestive heart failure, atrial fibrillation anticoagulated on Eliquis, hyperlipidemia, COPD, and BPH, who was transferred from [facility] for severe hyperkalemia and acute kidney injury. Filiberto gomes has been complaining of shortness of breath and weakness for a few days. Patient also complaining of sore throat. Patient weakness and shortness of breath progressed so he eventually presented to [facility] where he was evaluated, patient was found to have elevated potassium levels of 8.4, patient was given hyperkalemia protocol and received sodium bicarb, Lokelma, insulin and dextrose. Chest x-ray done showed large left pleural effusion small right pleural effusion, patient was transferred to [facility]. Patient has been complaining of shortness of breath on exertion and rest. Denies any chest pain. There is complaint of swelling of lower extremities. Patient complaining of nonproductive cough. Denies any fevers or chills Patient admitted to internal medicine service 04/03. Patient seen and examined. 2D echo done showed LVEF of 35% with global hypokinesis, severe biatrial enlargement, moderate mitral regurg, severe aortic stenosis. 04/04. Patient seen and examined. States breathing is improving, still gets short of breath on exertion. 04/05. Patient seen and examined. Patient being planned for thoracentesis this morning with pulmonary medicine. States breathing is improved. Denies any nausea or vomiting 04/06. Patient seen and examined. States breathing has improved, feels much better after thoracentesis yesterday. Labs done this morning showed WBC 8.7, hemoglobin 7.7, platelet count 139, sodium 139, potassium 4.2, BUN 90, creatinine 4 04/07/2023 Patient is currently sitting up in the chair. Awake alert and oriented 3. Currently on 2 L oxygen via nasal cannula. Patient is being cannula on by mouth twice a day. Also on DuoNeb's and Pulmicort inhalation. No comments of nausea or vomiting. Tolerating oral diet. No bowel movement today. Laboratory data showed sodium 138 potassium 4.0 chloride 95 BUN 91.1 and creatinine 4.0 Patient is being followed by pulmonary and nephrology. Chest x-ray showed increasing consolidation and pleural effusion on the left. Likely represent a hydropneumothorax of approximately 5-10% pneumothorax noted. No significant interval change. 04/08/2023 Patient is currently sitting which it. Awake alert and oriented 3. requiring oxygen at a 2 L via nasal cannula. pleural fluid cultures showed no growth. No plans for chest tube placement. Pulmonary is on board. laboratory data showed sodium 139, potassium 3.9, chloride 95, BUN 96.5 and creatinine 3.1. Nephrology and pulmonology is on board. 04/09/2023 Patient is sitting in the chair. Awake alert and oriented 3. Requiring 2 L oxygen with nasal cannula. Patient does have home oxygen. Patient has been afebrile. Able to tolerate oral diet. Pleural fluid culture is negative. Cytology is negative for malignancy.. Repeat chest x-ray was ordered for tomorrow. No plan for chest tube placement at this time. Pulmonary is on board. No new laboratory data today. REVIEW OF SYSTEMS: CONSTITUTIONAL: No fever, no malaise,. CARDIOVASCULAR: No chest pain, no palpitations, no syncope. PULMONARY: As mentioned above GASTROINTESTINAL: No diarrhea, no nausea, no vomiting, no abdominal pain. NEUROLOGICAL: No headaches, no weakness, PHYSICAL EXAMINATION: GENERAL: The patient is alert and oriented x3, not in any acute distress. Well developed, well nourished. HEENT: Pupils are round and equally reacting to light. EOMI. No scleral icterus. No conjunctival pallor. Normocephalic, atraumatic. No pharyngeal erythema. No thyromegaly. CARDIOVASCULAR: S1 and S2 present. No murmurs, rubs, or gallops. PULMONARY: Coarse breath sound bilaterally, diminished at the bases, crackles audible ABDOMEN: Soft, nontender, nondistended, normoactive bowel sounds. No palpable organomegaly. MUSCULOSKELETAL: No joint swelling or deformity. EXTREMITIES: No cyanosis, clubbing, or pedal edema. NEUROLOGICAL: Gross neurological examination did not reveal any focal deficits. SKIN: No rashes. Assessment and plan Hyperkalemia due to acute kidney injury. Improved.. Acute hypoxic respiratory failure due to acute CHF and fluid overload. Status post left thoracentesis on 04/05/2023. Transudate. Fluid cytopathology is pending. Repeat chest x-ray today showed hydropneumothorax approximately 5-10%. Acute on chronic kidney disease. Ejection fraction 35% with global hypokinesis, severe bilateral enlargement, moderate MR and severe aortic stenosis. Acute on chronic systolic CHF History paroxysmal A-fib on anticoagulation with liquids. COPD Lactic acidosis Bilateral pleural effusion aortic stenosis BPH Monitor vital signs Monitor CBC Monitor CMP Continue telemetry monitoring 2D echo done showed LVEF of 35% with global hypokinesis, severe biatrial enlargement, moderate mitral regurg, severe aortic stenosis. Avoid nephrotoxic agents Continue breathing treatment Consent with by mouth Lasix 40 minutes by mouth twice a day. Status post left-sided thoracentesis with removal of 1.4 L of fluid on 04/05/2023. Cytology is negative for malignancy.. Cultures negative. No plans for chest tube placement. Repeat chest x-ray tomorrow. Nephrology following Pulmonology following, Cardiology following Labs and medication were reviewed.. Monitor labs and vitals. DVT and GI prophylaxis. Anticipate discharge in next 24 hours Dictation was produced using [email or web address] dictation software. please excuse any grammatical, word or spelling errors. Objective - Vital Signs Vital signs: Vital Signs Temp 97.9 F 04/09/23 06:55 Pulse 64 04/09/23 09:31 Resp 19 04/09/23 06:55 BP 109/61 04/09/23 06:55 Pulse Ox 99 04/09/23 06:55 FiO2 Intake & Output 04/08/23 04/09/23 04/09/23 18:59 06:59 18:59 Intake Total 480 100 Output Total 600 500 250 Balance -600 -20 -150 Weight 71 kg Intake: Oral 480 100 Output: Urine 600 500 250 Uretheral (Riley) 250 Other: Voiding Method Indwelling Catheter Indwelling Catheter Indwelling Catheter # Bowel Movements 1 - Labs CBC & Chem 7: 04/08/23 04:35 04/08/23 04:35 Labs: Microbiology - Last 24 Hours (Table) 04/05/23 10:00 Gram Stain - Preliminary Pleural Fluid Body Fluid Culture - Preliminary
--- NOTE | 2023-04-10 10:44 | US ---
EXAMINATION TYPE: US chest DATE OF EXAM: 04/10/2023 COMPARISON: CT & US CLINICAL INDICATION: Male, 87 years old with history of Left effusion; Left effusion TECHNIQUE: Targeted ultrasound of the posterior lower left hemithorax EXAM MEASUREMENTS: Left Pleural Effusion pocket size: 10.4 cm Left skin surface to fluid distance: 4.1 cm Left side marked for possible thoracentesis outside the dept. Pulmonologists are able to review the images in the patient?s EMR. IMPRESSIONS: Left pleural effusion.
--- NOTE | 2023-04-10 12:39 | P.PN ---
Subjective Progress Note Date: 04/10/23 I am seeing this patient in consultation today 04/02/2023 for dyspnea and left- sided pleural effusion. He is currently in the emergency room. He was transferred from [facility] late last night for severe hyperkalemia and acute kidney injury. Patient is a 87-year-old white male with past medical history significant for chronic kidney disease, congestive heart failure, atrial fibrillation anticoagulated on Eliquis, hyperlipidemia, COPD, and BPH. Patient is technically a poor historian. Apparently, he is complaining of shortness of breath, weakness and sore throat over the last several days. This progressively worsened, and he went into [facility] to be evaluated. Patient was found to be severely hyperkalemic. He was also found to be anemic and was transfused 1 unit PRBC. He was transferred to [facility]. Patient is currently resting in bed, on 2 L/min nasal cannula, in no acute distress. He is weak and cannot sit up in bed without assistance. Becomes short of breath with any kind of activity. He denies any chest pain, heart palpitations, or syncopal events. He does have bilateral lower extremity swelling. He has an occasional nonproductive cough. Denies any sputum production, fevers. Chest x-ray on arrival shows cardiomegaly, pulmonary vascu lar congestion, and interstitial edema. There is a moderate to large left-sided pleural effusion and small right pleural effusion.. Patient was given 60 mg of IV Lasix. A Riley catheter was inserted, and the patient has approximately 800 mL of concentrated urine. Patient states that earlier in the week he has had troubles urinating. He voids about 2-3 times per day. Endorses dysuria. Denies any hematuria, urinary frequency. Urinalysis on arrival not concerning for UTI. Trace protein. He does have baseline chronic kidney disease. Ultrasound of the abdomen and bladder did not show any hydronephrosis. Potassium level on arrival was elevated at 8.4 and is down to 5 point 3:06 amp sodium bicarb, 10 g Lokelma, 10 units insulin, 2 A D50 W, calcium gluconate, and the above-mentioned Lasix. Nephrology has been consulted. There is D5W with 3 amp sodium bicarb infusing at 50 MLS per hour. BMP on arrival has a sodium 138, testing 8.4, chloride 108, serum bicarb 18, BUN 74, creatinine 3.68, and glucose 85. Lactic acid level was 3.8 on arrival and is down to 1.6. Troponin less daniel n 0.012. NT proBNP 57,800. ECG shows normal sinus rhythm with chronic left bundle branch block without any obvious hyperkalemic changes. CBC on arrival: WBC count 8.4, hemoglobin 10.7, hematocrit 34, platelets 121. Group A strep negative. No signs of bleeding. Patient has chronic anemia. Patient denies any acute blood loss. No bloody bowel movements, melena, hematemesis. No abdominal pain or diarrhea. Vital signs are stable. The patient is seen today April 03, 2023 in follow-up in the emergency department. He is currently sitting up on the stretcher. Awake and alert in no acute distress. He is breathing a bit easier today compared to yesterday. He states he is about 50% better. He is still somewhat bronchospastic and wheezing. White count 8.6. Hemoglobin 8.1. Platelets 127. Sodium 139. Potassium 5.0. BUN 89. Creatinine 4.02. Glucose 118. He is continued on IV diuretics. Anticoagulated with Eliquis. Continued on bronchodilators. Currently in a -1.2 L balance. Making good urine. The patient is seen today April 04, 2023 in follow-up on the regular medical floor. He is awake and alert in no acute distress. Resting fairly comfortably in bed. Denies any worsening shortness of breath, cough or congestion. He is maintaining O2 saturation in the 90s on 2 L/min per nasal cannula. Chest x-ray does reveal increasing left pleural effusion and a right-sided pleural effusion. Echocardiogram confirms a right-sided pleural effusion measuring 11.9 cm, left- sided pleural effusion at 10.8 cm. The patient is currently on Eliquis this will be placed on hold for possible left-sided thoracentesis tomorrow. Count 9.0. Hemoglobin 7.8. Platelets 140. Sodium 140. Potassium 4.8. Bicarb 28. BUN 87. Creatinine 4.1. Glucose 88. He remains on Lasix 60 mg IV twice a day. Currently net -1.5 L balance The patient is seen today April 05, 2023 in follow-up on the regular medical floor. He is currently sitting up in bed. Awake and alert in no acute distress. He is maintaining O2 saturations in the 90s 2 L/min per nasal cannula. He is been afebrile. Hemodynamically stable. He did undergo a left- sided thoracentesis today with 1.4 L of straw-colored fluid removed. Fluid sent for analysis and cytology. Follow-up chest x-ray reveals a tiny left apical pneumothorax. Sodium 137. Potassium 4.1. Bicarb 31. BUN 97. Creatinine 3.86. Glucose 101. Remains on IV diuretics. Currently in a -2.8 L balance. The patient is seen today April 06, 2023 in follow-up on the regular medical floor. He is awake and alert no acute distress. He is resting comfortably in bed. He is maintaining good O2 saturations in the 90s on 2 L/min per nasal cannula. He remains on IV diuretics. Currently net -2.7 L balance. He is status post left-sided thoracentesis yesterday with 1.4 L of straw-colored fluid removed. Cytology pending. Fluid analysis transudate with a total protein of 2.6 and an LDH of 80. Today's chest x-ray shows small bilateral effusions. No evidence of pneumothorax. Count 8.7. Hemoglobin 7.7. Platelets 139. Sodium 1 39. Potassium 4.2. Bicarb 29. BUN 91. Creatinine 4.0. The patient is seen today April 07, 2023 in follow-up on the regular medical floor. He is resting comfortably in bed. Awake and alert in no acute distress. Maintaining O2 saturations in the 90s on 2 L/min per nasal cannula. He is cont inued on bronchodilators and oral diuretics. Currently net -1.2 L balance. Follow-up chest x-ray revealed creasing consolidation and pleural effusion on the left. Likely represents a hydropneumothorax of approximately 5 to 10% pneumothorax noted. No significant change. The patient is seen today April 08, 2023 in follow-up on the regular medical floor. He is awake and alert in no acute distress. Maintaining O2 saturations in the 90s on 2 L/min per nasal cannula. Laying in bed. CT scan of the chest revealed moderate-sized bilateral pleural effusions. Left effusion appears loculated and there is additionally a left anterior pneumothorax at approximately 15 to 20%. Consolidation and partial collapse of the left lung. Atelectasis in the right posterior lung. Pleural fluid cultures revealed no growth, no malignancy. No plans for chest tube placement. Eliquis has been resumed. White count 8.5. Hemoglobin 7.7. Platelets 146. Sodium 139. Potassium 3.9. Bicarb 29. BUN 96. Creatinine 3.9. The patient is seen today April 09, 2023 in follow-up on the regular medical floor. He is resting comfortably in bed. Awake and alert in no acute distress. Maintaining O2 saturations in the 90s on 2 L/min per nasal cannula. He denies any worsening shortness of breath, cough or congestion. No new labs today. No chest x-ray today. He is anticoagulated with Eliquis. The patient is seen today April 10, 2023 in follow-up on the regular medical floor. He is awake and alert in no acute distress. Resting fairly comfortably in bed. Today's chest x-ray shows reaccumulation of fluid in the left chest. He is currently on DuoNeb inhalation, Pulmicort inhalations. Remains on oral diuretics. No new labs today. Pleural fluid cultures revealed no growth. He is anticoagulated with Eliquis. Objective - Vital Signs Vital signs: Vital Signs Temp 97.6 F 04/10/23 07:10 Pulse 66 04/10/23 08:30 Resp 18 04/10/23 07:10 BP 112/48 04/10/23 07:10 Pulse Ox 92 L 04/10/23 08:21 FiO2 Intake & Output 04/09/23 04/10/23 04/10/23 18:59 06:59 18:59 Intake Total 100 Output Total 402 500 Balance -302 -500 Weight 71 kg 72.2 kg Intake: Oral 100 Output: Urine 250 500 Straight 500 Uretheral (Riley) 250 Post Void Residual 152 Other: Voiding Method Indwelling Catheter Urinal Urinal # Bowel Movements 2 1 - Exam GENERAL EXAM: Alert, 87-year-old male, resting in bed, on 2 L nasal cannula, in no apparent distress. HEAD: Normocephalic and atraumatic EYES: Normal reaction of pupils, equal size. NOSE: Clear with pink turbinates. THROAT: Mild erythema, no exudates NECK: No masses, no JVD. CHEST: No chest wall deformity. LUNGS: Equal air entry with right basilar inspiratory crackles. Diminished in the left lung base. CVS: S1 and S2 normal with no audible murmur, regular rhythm. No extra heart sounds ABDOMEN: No hepatosplenomegaly, active bowel sounds, no guarding or rigidity. SPINE: No scoliosis or deformity SKIN: No rashes CENTRAL NERVOUS SYSTEM: No focal deficits, tone is normal in all 4 extremities. EXTREMITIES: There is moderate bilateral lower extremity nonpitting edema. No clubbing, or cyanosis. Peripheral pulses are intact. - Labs CBC & Chem 7: 04/08/23 04:35 04/08/23 04:35 Labs: Microbiology - Last 24 Hours (Table) 04/05/23 10:00 Gram Stain - Final Pleural Fluid Body Fluid Culture - Final Assessment and Plan Assessment: Acute hypoxemic respiratory failure, secondary to acute systolic CHF exacerbation and fluid overload. Chest x-ray shows cardiomegaly, pulmonary vascular congestion, and interstitial edema. Patient also has moderate to large left-sided pleural effusion and a small right pleural effusion. NT proBNP was elevated at 57,800. Status post left-sided thoracentesis April 05, 2023 with 1.4 L of straw-colored fluid removed. Fluid analysis transudate, cytology pending. CT scan of the chest and follow-up chest x-ray reveals stable hydropneumothorax of approximately 15 to 20%. Chest x-ray today April 10, 2023 shows significant reaccumulation of fluid in the left chest. Ultrasound pending. Acute on chronic kidney disease Severe hyperkalemia, improved Lactic acidosis, improved Chronic obstructive pulmonary disease, stable History of paroxysmal atrial fibrillation, anticoagulated on Eliquis, currently normal sinus Benign prostatic hyperplasia Anemia of chronic disease, patient reportedly received 1 unit PRBC at [facility] Plan: The patient was seen and evaluated Chest x-ray and medications reviewed Ultrasound of the left chest pending Continue oral diuretics Continue the current treatment plan We will continue to follow I have personally seen and examined the patient, performed the documentation and the assessment and plan as written. Number of minutes spent on the visit: 10.
[2023-04-10 13:14] LABS: Anisocytosis Slight; Basophils % (A) 0 %; Eosinophils # (A) 0.6 k/uL (0-0.7); Eosinophils % (A) 9 %; HGB 8.2 gm/dL (13.0-17.5); Hypochromasia Marked; Lymphocytes % (A) 14 %; MCH 31.1 pg (25.0-35.0); MCHC 30.6 g/dL (31.0-37.0); MCV 101.7 fL (80.0-100.0); Macrocytosis Moderate; Mean Platelet Volume 8.9; Monocytes # (A) 0.5 k/uL (0-1.0); Monocytes % (A) 7 %; Neutrophils # (A) 4.7 k/uL (1.3-7.7); Neutrophils % (A) 66 %; Platelet Count 182 k/uL (150-450); RBC 2.65 m/uL (4.30-5.90); RDW 16.7 % (11.5-15.5); WBC 7.1 k/uL (3.8-10.6)
[2023-04-10 13:26] LABS: African American GFR (CKD) 16 (>60 ml/min/1.73 sqM); Anion Gap 9 mmol/L; Calcium 8.6 mg/dL (8.4-10.2); Carbon Dioxide 32 mmol/L (22-30); Chloride 94 mmol/L (98-107); Glucose 115 mg/dL (74-99); Non-African American GFR(CKD) 14 (>60 ml/min/1.73 sqM); Sodium 135 mmol/L (137-145)
[2023-04-10 13:40] LABS: Blood Urea Nitrogen 123 mg/dL (9-20)
--- NOTE | 2023-04-10 20:59 | P.PN ---
Subjective Patient is seen for follow-up for acute kidney injury on top of chronic kidney disease. Serum creatinine at 4.0. Baseline creatinine around 3 mg/dL. Urine output at 750ml for 24 hours. Maintained on oral Lasix. No complaints of shortness of breath. Overall feeling better. Objective - Vital Signs Vital signs: Vital Signs Temp 97.6 F 04/10/23 14:00 Pulse 72 04/10/23 20:02 Resp 18 04/10/23 14:00 BP 108/48 04/10/23 14:00 Pulse Ox 97 04/10/23 14:00 FiO2 Intake & Output 04/10/23 04/10/23 04/11/23 06:59 18:59 06:59 Output Total 500 400 Balance -500 -400 Weight 72.2 kg Output: Urine 500 400 Straight 500 400 Other: Voiding Method Urinal Urinal Urinal # Bowel Movements 1 1 - Exam Patient is awake, comfortable, no acute distress Examination of the heart S1 and S2 Examination of the lungs bilateral breath sounds are heard Abdomen is soft nontender Examination lower extremities shows no significant edema [employer]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 - Labs CBC & Chem 7: 04/10/23 12:44 04/10/23 12:44 Labs: Abnormal Lab Results - Last 24 Hours (Table) 04/10/23 04/10/23 Range/Units 12:44 12:44 RBC 2.65 L (4.30-5.90) m/uL Hgb 8.2 L (13.0-17.5) gm/dL Hct 27.0 L (39.0-53.0) % MCV 101.7 H (80.0-100.0) fL MCHC 30.6 L (31.0-37.0) g/dL RDW 16.7 H (11.5-15.5) % Sodium 135 L (137-145) mmol/L Chloride 94 L (98-107) mmol/L Carbon Dioxide 32 H (22-30) mmol/L BUN 123 H* (9-20) mg/dL Creatinine 3.70 H (0.66-1.25) mg/dL Glucose 115 H (74-99) mg/dL Microbiology - Last 24 Hours (Table) 04/05/23 10:00 Gram Stain - Final Pleural Fluid Body Fluid Culture - Final Assessment and Plan Assessment: 1. Acute kidney injury secondary to ATN secondary to anemia and secondary to urinary retention. Renal function slightly worse from diuresis and Lasix has been switched to oral. No hydronephrosis noted on kidney ultrasound. 2. Chronic kidney disease stage IV with baseline creatinine near 3 secondary to nephrosclerosis and obstructive uropathy. 3. Hyperkalemia secondary to acute kidney injury, acidosis and urinary retention. Improved with medical management. 4. Volume overload with pleural effusions. 5. Acute blood loss anemia status post blood transfusion this admission. 6. Acute on chronic systolic CHF ejection fraction of 30 to 35% with moderate m itral and tricuspid regurgitation. 7. Metabolic acidosis secondary to acute kidney injury improved with bicarb drip. 8. Urinary retention status post Riley catheter placement. On Flomax. 9. Left hydropneumothorax, stable Plan: Continue with current dose of oral Lasix. Briefly discussed renal replacement therapy if renal function worsens or volume status worsens. No indication for dialysis currently. Close follow-up as outpatient for CK D Repeat labs in a.m.
[2023-04-11 09:07] LABS: African American GFR (CKD) 17 (>60 ml/min/1.73 sqM); Anion Gap 9 mmol/L; Calcium 8.8 mg/dL (8.4-10.2); Carbon Dioxide 30 mmol/L (22-30); Chloride 95 mmol/L (98-107); Glucose 88 mg/dL (74-99); Non-African American GFR(CKD) 15 (>60 ml/min/1.73 sqM); Potassium 4.5 mmol/L (3.5-5.1); Sodium 134 mmol/L (137-145)
[2023-04-11 09:15] LABS: Blood Urea Nitrogen 130 mg/dL (9-20)
--- NOTE | 2023-04-11 10:30 | OP ---
OPERATIVE REPORT DATE OF SERVICE : PROCEDURE: Left-sided thoracentesis. PREOPERATIVE DIAGNOSIS: Left pleural effusion. POSTOP DIAGNOSIS: Left pleural effusion. FIRST DISTRIBUTION LEAD: Dr. Karma Lopez. INDICATION: Pleural effusion. DESCRIPTION OF PROCEDURE: The patient's procedure took place in room #469. There was informed consent and universal time-out. The left posterior chest was marked by ultrasound. A time-out was completed verifying correct patient, procedure, site, positioning , and implant (s) or special equipment if applicable. Ultrasound guidance was/was not used and appropriate fluid pocket was identified and marked. Patient was positioned, prepped and draped in usual sterile fashion. Lidocaine was used to anesthetize the area. A Thoracentesis catheter was introduced into the pleural space and fluid was removed. Blood loss was none. A chest x-ray was ordered to evaluate for pneumothorax. TOTAL FLUID REMOVED: 1.2 L of dark yellow brown fluid was removed from the left pleural space. The patient tolerated the procedure well. Since this was his second thoracentesis, the fluid will not be sent for analysis. A chest x-ray will be ordered. There was no immediate complication. MMODL / IJN: [id number] /
--- NOTE | 2023-04-11 10:53 | P.PN ---
Subjective Patient is seen for follow-up for acute kidney injury on top of chronic kidney disease. Serum creatinine has decreased to 3.5 however BUN is significantly elevated at 130. Hemoglobin is low at 7.7 and 8.2. Possible underlying GI bleed. Urine output at 1100ml for 24 hours. Maintained on oral Lasix. No complaints of shortness of breath. Overall feeling better. 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 shows 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 Acute kidney injury secondary to ATN secondary to anemia and secondary to urinary retention. Renal function has improved however BUN is disproportionately elevated most likely secondary to underlying GI bleed. No hydronephrosis noted on kidney ultrasound. 2. Chronic kidney disease stage IV with baseline creatinine near 3 secondary to nephrosclerosis and obstructive uropathy. 3. Hyperkalemia secondary to acute kidney injury, acidosis and urinary retention. Improved with medical management. 4. Volume overload with pleural effusions. 5. Acute blood loss anemia status post blood transfusion this admission. Eliquis on hold. Possible GI bleed. Maintained on Aranesp 6. Acute on chronic systolic CHF ejection fraction of 30 to 35% with moderate mitral and tricuspid regurgitation. 7. Metabolic acidosis secondary to acute kidney injury improved with bicarb drip. 8. Urinary retention status post Riley catheter placement. On Flomax. 9. Left hydropneumothorax, stable Plan: Continue with current dose of oral Lasix. Check stool for occult blood. Eliquis on hold Repeat labs in a.m.
--- NOTE | 2023-04-11 11:00 | XR ---
EXAMINATION TYPE: XR chest 1V portable DATE OF EXAM: 04/11/2023 10:33 AM CLINICAL INDICATION:Male, 87 years old with history of Post left thoracentesis; COMPARISON: Chest radiographs from 04/10/2023 TECHNIQUE: XR chest 1V portable Frontal view of the chest. FINDINGS: Lungs/Pleura: Blunting of left costophrenic angle on the left. There is increased left pneumothorax. There is no evidence of pleural effusion, focal consolidation, or pneumothorax. Pulmonary vascularity: Unremarkable. Heart/mediastinum: Cardiomediastinal silhouette is enlarged and stable. Atherosclerotic calcificatio ns are seen in the aorta. Musculoskeletal: No acute osseous pathology. IMPRESSION: Increasing pneumothorax now Moderate to large left pneumothorax.
--- NOTE | 2023-04-11 11:35 | P.PN ---
Subjective Progress Note Date: 04/11/23 I am seeing this patient in consultation today 04/02/2023 for dyspnea and left- sided pleural effusion. He is currently in the emergency room. He was transferred from [facility] late last night for severe hyperkalemia and acute kidney injury. Patient is a 87-year-old white male with past medical history significant for chronic kidney disease, congestive heart failure, atrial fibrillation anticoagulated on Eliquis, hyperlipidemia, COPD, and BPH. Patient is technically a poor historian. Apparently, he is complaining of shortness of breath, weakness and sore throat over the last several days. This progressively worsened, and he went into [facility] to be evaluated. Patient was found to be severely hyperkalemic. He was also found to be anemic and was transfused 1 unit PRBC. He was transferred to [facility]. Patient is currently resting in bed, on 2 L/min nasal cannula, in no acute distress. He is weak and cannot sit up in bed without assistance. Becomes short of breath with any kind of activity. He denies any chest pain, heart palpitations, or syncopal events. He does have bilateral lower extremity swelling. He has an occasional nonproductive cough. Denies any sputum production, fevers. Chest x-ray on arrival shows cardiomegaly, pulmonary vascu lar congestion, and interstitial edema. There is a moderate to large left-sided pleural effusion and small right pleural effusion.. Patient was given 60 mg of IV Lasix. A Riley catheter was inserted, and the patient has approximately 800 mL of concentrated urine. Patient states that earlier in the week he has had troubles urinating. He voids about 2-3 times per day. Endorses dysuria. Denies any hematuria, urinary frequency. Urinalysis on arrival not concerning for UTI. Trace protein. He does have baseline chronic kidney disease. Ultrasound of the abdomen and bladder did not show any hydronephrosis. Potassium level on arrival was elevated at 8.4 and is down to 5 point 3:06 amp sodium bicarb, 10 g Lokelma, 10 units insulin, 2 A D50 W, calcium gluconate, and the above-mentioned Lasix. Nephrology has been consulted. There is D5W with 3 amp sodium bicarb infusing at 50 MLS per hour. BMP on arrival has a sodium 138, testing 8.4, chloride 108, serum bicarb 18, BUN 74, creatinine 3.68, and glucose 85. Lactic acid level was 3.8 on arrival and is down to 1.6. Troponin less daniel n 0.012. NT proBNP 57,800. ECG shows normal sinus rhythm with chronic left bundle branch block without any obvious hyperkalemic changes. CBC on arrival: WBC count 8.4, hemoglobin 10.7, hematocrit 34, platelets 121. Group A strep negative. No signs of bleeding. Patient has chronic anemia. Patient denies any acute blood loss. No bloody bowel movements, melena, hematemesis. No abdominal pain or diarrhea. Vital signs are stable. The patient is seen today April 03, 2023 in follow-up in the emergency department. He is currently sitting up on the stretcher. Awake and alert in no acute distress. He is breathing a bit easier today compared to yesterday. He states he is about 50% better. He is still somewhat bronchospastic and wheezing. White count 8.6. Hemoglobin 8.1. Platelets 127. Sodium 139. Potassium 5.0. BUN 89. Creatinine 4.02. Glucose 118. He is continued on IV diuretics. Anticoagulated with Eliquis. Continued on bronchodilators. Currently in a -1.2 L balance. Making good urine. The patient is seen today April 04, 2023 in follow-up on the regular medical floor. He is awake and alert in no acute distress. Resting fairly comfortably in bed. Denies any worsening shortness of breath, cough or congestion. He is maintaining O2 saturation in the 90s on 2 L/min per nasal cannula. Chest x-ray does reveal increasing left pleural effusion and a right-sided pleural effusion. Echocardiogram confirms a right-sided pleural effusion measuring 11.9 cm, left- sided pleural effusion at 10.8 cm. The patient is currently on Eliquis this will be placed on hold for possible left-sided thoracentesis tomorrow. Count 9.0. Hemoglobin 7.8. Platelets 140. Sodium 140. Potassium 4.8. Bicarb 28. BUN 87. Creatinine 4.1. Glucose 88. He remains on Lasix 60 mg IV twice a day. Currently net -1.5 L balance The patient is seen today April 05, 2023 in follow-up on the regular medical floor. He is currently sitting up in bed. Awake and alert in no acute distress. He is maintaining O2 saturations in the 90s 2 L/min per nasal cannula. He is been afebrile. Hemodynamically stable. He did undergo a left- sided thoracentesis today with 1.4 L of straw-colored fluid removed. Fluid sent for analysis and cytology. Follow-up chest x-ray reveals a tiny left apical pneumothorax. Sodium 137. Potassium 4.1. Bicarb 31. BUN 97. Creatinine 3.86. Glucose 101. Remains on IV diuretics. Currently in a -2.8 L balance. The patient is seen today April 06, 2023 in follow-up on the regular medical floor. He is awake and alert no acute distress. He is resting comfortably in bed. He is maintaining good O2 saturations in the 90s on 2 L/min per nasal cannula. He remains on IV diuretics. Currently net -2.7 L balance. He is status post left-sided thoracentesis yesterday with 1.4 L of straw-colored fluid removed. Cytology pending. Fluid analysis transudate with a total protein of 2.6 and an LDH of 80. Today's chest x-ray shows small bilateral effusions. No evidence of pneumothorax. Count 8.7. Hemoglobin 7.7. Platelets 139. Sodium 1 39. Potassium 4.2. Bicarb 29. BUN 91. Creatinine 4.0. The patient is seen today April 07, 2023 in follow-up on the regular medical floor. He is resting comfortably in bed. Awake and alert in no acute distress. Maintaining O2 saturations in the 90s on 2 L/min per nasal cannula. He is cont inued on bronchodilators and oral diuretics. Currently net -1.2 L balance. Follow-up chest x-ray revealed creasing consolidation and pleural effusion on the left. Likely represents a hydropneumothorax of approximately 5 to 10% pneumothorax noted. No significant change. The patient is seen today April 08, 2023 in follow-up on the regular medical floor. He is awake and alert in no acute distress. Maintaining O2 saturations in the 90s on 2 L/min per nasal cannula. Laying in bed. CT scan of the chest revealed moderate-sized bilateral pleural effusions. Left effusion appears loculated and there is additionally a left anterior pneumothorax at approximately 15 to 20%. Consolidation and partial collapse of the left lung. Atelectasis in the right posterior lung. Pleural fluid cultures revealed no growth, no malignancy. No plans for chest tube placement. Eliquis has been resumed. White count 8.5. Hemoglobin 7.7. Platelets 146. Sodium 139. Potassium 3.9. Bicarb 29. BUN 96. Creatinine 3.9. The patient is seen today April 09, 2023 in follow-up on the regular medical floor. He is resting comfortably in bed. Awake and alert in no acute distress. Maintaining O2 saturations in the 90s on 2 L/min per nasal cannula. He denies any worsening shortness of breath, cough or congestion. No new labs today. No chest x-ray today. He is anticoagulated with Eliquis. The patient is seen today April 10, 2023 in follow-up on the regular medical floor. He is awake and alert in no acute distress. Resting fairly comfortably in bed. Today's chest x-ray shows reaccumulation of fluid in the left chest. He is currently on DuoNeb inhalation, Pulmicort inhalations. Remains on oral diuretics. No new labs today. Pleural fluid cultures revealed no growth. He is anticoagulated with Eliquis. The patient is seen today April 11, 2023 in follow-up on the regular medical floor. He is sitting up in bed. Awake and alert in no acute distress. Maintaining O2 saturations in the 90s on 2 L/min per nasal cannula. Sodium 134. Potassium 4.5. Bicarb 30. BUN 130. Creatinine 3.55. Glucose 88. Ultrasound of the chest did reveal a significant left-sided pleural effusion. He under went a second thoracentesis today with 1.2 L of dark yellow fluid removed. Unfortunately, follow-up chest x-ray does reveal a moderate to large left pneumothorax. The patient remains asymptomatic. Repeat chest x-ray pending. He remains on bronchodilators. Remains on oral diuretics. Plan a -1.1 L balance. Objective - Vital Signs Vital signs: Vital Signs Temp 97.8 F 04/11/23 07:41 Pulse 72 04/11/23 09:08 Resp 15 04/11/23 08:00 BP 117/61 04/11/23 07:41 Pulse Ox 96 04/11/23 08:49 FiO2 Intake & Output 04/10/23 04/11/23 04/11/23 18:59 06:59 18:59 Output Total 400 700 Balance -400 -700 Output: Urine 400 700 Straight 400 Other: Voiding Method Urinal Urinal Indwelling Catheter # Bowel Movements 1 - Exam GENERAL EXAM: Alert, pleasant 87-year-old male, on 2 L nasal cannula, in no apparent distress. HEAD: Normocephalic and atraumatic EYES: Normal reaction of pupils, equal size. NOSE: Clear with pink turbinates. THROAT: Mild erythema, no exudates NECK: No masses, no JVD. CHEST: No chest wall deformity. LUNGS: Equal air entry with right basilar inspiratory crackles. Diminished in the left lung base. CVS: S1 and S2 normal with no audible murmur, regular rhythm. No extra heart sounds ABDOMEN: No hepatosplenomegaly, active bowel sounds, no guarding or rigidity. SPINE: No scoliosis or deformity SKIN: No rashes CENTRAL NERVOUS SYSTEM: No focal deficits, tone is normal in all 4 extremities. EXTREMITIES: There is moderate bilateral lower extremity nonpitting edema. No clubbing, or cyanosis. Peripheral pulses are intact. - Labs CBC & Chem 7: 04/10/23 12:44 04/11/23 06:35 Labs: Abnormal Lab Results - Last 24 Hours (Table) 04/10/23 04/10/23 04/11/23 Range/Units 12:44 12:44 06:35 RBC 2.65 L (4.30-5.90) m/uL Hgb 8.2 L (13.0-17.5) gm/dL Hct 27.0 L (39.0-53.0) % MCV 101.7 H (80.0-100.0) fL MCHC 30.6 L (31.0-37.0) g/dL RDW 16.7 H (11.5-15.5) % Sodium 135 L 134 L (137-145) mmol/L Chloride 94 L 95 L (98-107) mmol/L Carbon Dioxide 32 H (22-30) mmol/L BUN 123 H* 130 H* (9-20) mg/dL Creatinine 3.70 H 3.55 H (0.66-1.25) mg/dL Glucose 115 H (74-99) mg/dL Assessment and Plan Assessment: Acute hypoxemic respiratory failure, secondary to acute systolic CHF exacerbation and fluid overload. Chest x-ray shows cardiomegaly, pulmonary vascular congestion, and interstitial edema. Patient also has moderate to large left-sided pleural effusion and a small right pleural effusion. NT proBNP was elevated at 57,800. Status post left-sided thoracentesis April 05, 2023 with 1.4 L of straw-colored fluid removed. Fluid analysis transudate, cytology for malignancy. CT scan of the chest and follow-up chest x-ray reveals stable hydropneumothorax of approximately 15 to 20%. Chest x-ray today April 10, 2023 shows significant reaccumulation of fluid in the left chest. Ultrasound re veals a recurrent left pleural effusion measuring 10.4 cm. A second thoracentesis was performed today April 11, 2023 with 1.2 L of fluid removed. No fluid analysis or cytology sent at this time Moderate left-sided pneumothorax post procedure, follow-up chest x-ray pending Acute on chronic kidney disease Severe hyperkalemia, improved Lactic acidosis, improved Chronic obstructive pulmonary disease, stable History of paroxysmal atrial fibrillation, anticoagulated on Eliquis, currently normal sinus Benign prostatic hyperplasia Anemia of chronic disease, patient reportedly received 1 unit PRBC at [facility] Plan: The patient was seen and evaluated Ultrasound of the chest, chest x-ray, labs and medications reviewed Status post left thoracentesis today with 1.2 L of fluid removed Chest x-ray showing pneumothorax, will repeat the chest x-ray in a few hours Patient is stable and on 2 L no worsening pulmonary complaint Continue oral diuretics We will continue to follow I have personally seen and examined the patient, performed the documentation and the assessment and plan as written. Number of minutes spent on the visit: 10.
--- NOTE | 2023-04-11 13:25 | P.PN ---
Subjective Progress Note Date: 04/11/23 Patient is a 87-year-old white male with past medical history significant for chronic kidney disease, congestive heart failure, atrial fibrillation anticoagulated on Eliquis, hyperlipidemia, COPD, and BPH, who was transferred from [facility] for severe hyperkalemia and acute kidney injury. Filiberto gomes has been complaining of shortness of breath and weakness for a few days. Patient also complaining of sore throat. Patient weakness and shortness of breath progressed so he eventually presented to [facility] where he was evaluated, patient was found to have elevated potassium levels of 8.4, patient was given hyperkalemia protocol and received sodium bicarb, Lokelma, insulin and dextrose. Chest x-ray done showed large left pleural effusion small right pleural effusion, patient was transferred to [facility]. Patient has been complaining of shortness of breath on exertion and rest. Denies any chest pain. There is complaint of swelling of lower extremities. Patient complaining of nonproductive cough. Denies any fevers or chills Patient admitted to internal medicine service 04/03. Patient seen and examined. 2D echo done showed LVEF of 35% with global hypokinesis, severe biatrial enlargement, moderate mitral regurg, severe aortic stenosis. 04/04. Patient seen and examined. States breathing is improving, still gets short of breath on exertion. 04/05. Patient seen and examined. Patient being planned for thoracentesis this morning with pulmonary medicine. States breathing is improved. Denies any nausea or vomiting 04/06. Patient seen and examined. States breathing has improved, feels much better after thoracentesis yesterday. Labs done this morning showed WBC 8.7, hemoglobin 7.7, platelet count 139, sodium 139, potassium 4.2, BUN 90, creatinine 4 04/07/2023 Patient is currently sitting up in the chair. Awake alert and oriented 3. Currently on 2 L oxygen via nasal cannula. Patient is being cannula on by mouth twice a day. Also on DuoNeb's and Pulmicort inhalation. No comments of nausea or vomiting. Tolerating oral diet. No bowel movement today. Laboratory data showed sodium 138 potassium 4.0 chloride 95 BUN 91.1 and creatinine 4.0 Patient is being followed by pulmonary and nephrology. Chest x-ray showed increasing consolidation and pleural effusion on the left. Likely represent a hydropneumothorax of approximately 5-10% pneumothorax noted. No significant interval change. 04/08/2023 Patient is currently sitting which it. Awake alert and oriented 3. requiring oxygen at a 2 L via nasal cannula. pleural fluid cultures showed no growth. No plans for chest tube placement. Pulmonary is on board. laboratory data showed sodium 139, potassium 3.9, chloride 95, BUN 96.5 and creatinine 3.1. Nephrology and pulmonology is on board. 04/09/2023 Patient is sitting in the chair. Awake alert and oriented 3. Requiring 2 L oxygen with nasal cannula. Patient does have home oxygen. Patient has been afebrile. Able to tolerate oral diet. Pleural fluid culture is negative. Cytology is negative for malignancy.. Repeat chest x-ray was ordered for tomorrow. No plan for chest tube placement at this time. Pulmonary is on board. No new laboratory data today. 04/11. Patient seen and examined. Repeat chest x-ray done showed pneumothorax moderate to large left, currently not in respiratory distress. Denies any blood in the stools REVIEW OF SYSTEMS: CONSTITUTIONAL: No fever, no malaise,. CARDIOVASCULAR: No chest pain, no palpitations, no syncope. PULMONARY: As mentioned above GASTROINTESTINAL: No diarrhea, no nausea, no vomiting, no abdominal pain. NEUROLOGICAL: No headaches, no weakness, PHYSICAL EXAMINATION: GENERAL: The patient is alert and oriented x3, not in any acute distress. Well d eveloped, well nourished. HEENT: Pupils are round and equally reacting to light. EOMI. No scleral icterus. No conjunctival pallor. Normocephalic, atraumatic. No pharyngeal erythema. No thyromegaly. CARDIOVASCULAR: S1 and S2 present. No murmurs, rubs, or gallops. PULMONARY: Coarse breath sound bilaterally, diminished at the bases, crackles audible ABDOMEN: Soft, nontender, nondistended, normoactive bowel sounds. No palpable organomegaly. MUSCULOSKELETAL: No joint swelling or deformity. EXTREMITIES: No cyanosis, clubbing, or pedal edema. NEUROLOGICAL: Gross neurological examination did not reveal any focal deficits. SKIN: No rashes. Assessment and plan Hyperkalemia Acute hypoxic respiratory failure Acute on chronic kidney disease Acute on chronic systolic CHF History paroxysmal A-fib COPD Lactic acidosis Bilateral pleural effusion aortic stenosis Monitor vital signs Monitor CBC Monitor CMP Continue telemetry monitoring 2D echo done showed LVEF of 35% with global hypokinesis, severe biatrial enlargement, moderate mitral regurg, severe aortic stenosis. Avoid nephrotoxic agents Continue breathing treatment Continue Lasix 40 mg twice a day Status post left-sided thoracentesis with removal of 1.4 L of fluid Cytology is negative for malignancy.. Cultures negative. No plans for chest tube placement. Repeat chest x-ray done showed pneumothorax moderate to large left on 04/11, pulmonology recommend monitoring for now FOBT positive, surgery consulted, hold Eliquis Nephrology following Cardiology following Labs and medication were reviewed.. Continue same treatment. Continue with symptomatic treatment. Resume home medication. Monitor labs and vitals. DVT and GI prophylaxis. Further recommendations as per clinical course of the patient Dictation was produced using [employer] dictation software. please excuse any grammatical, word or spelling errors. Objective - Vital Signs Vital signs: Vital Signs Temp 97.8 F 04/11/23 07:41 Pulse 72 04/11/23 12:00 Resp 15 04/11/23 08:00 BP 117/61 04/11/23 07:41 Pulse Ox 96 04/11/23 08:49 FiO2 Intake & Output 04/10/23 04/11/23 04/11/23 18:59 06:59 18:59 Output Total 400 700 Balance -400 -700 Output: Urine 400 700 Straight 400 Other: Voiding Method Urinal Urinal Indwelling Catheter # Bowel Movements 1 - Labs CBC & Chem 7: 04/10/23 12:44 04/11/23 06:35 Labs: Abnormal Lab Results - Last 24 Hours (Table) 04/10/23 04/10/23 04/11/23 Range/Units 12:44 12:44 06:35 RBC 2.65 L (4.30-5.90) m/uL Hgb 8.2 L (13.0-17.5) gm/dL Hct 27.0 L (39.0-53.0) % MCV 101.7 H (80.0-100.0) fL MCHC 30.6 L (31.0-37.0) g/dL RDW 16.7 H (11.5-15.5) % Sodium 135 L 134 L (137-145) mmol/L Chloride 94 L 95 L (98-107) mmol/L Carbon Dioxide 32 H (22-30) mmol/L BUN 123 H* 130 H* (9-20) mg/dL Creatinine 3.70 H 3.55 H (0.66-1.25) mg/dL Glucose 115 H (74-99) mg/dL
--- NOTE | 2023-04-11 15:58 | P.PN ---
Subjective Progress Note Date: 04/11/23 Patient is a 87-year-old white male with past medical history significant for chronic kidney disease, congestive heart failure, atrial fibrillation anticoagulated on Eliquis, hyperlipidemia, COPD, and BPH, who was transferred from [facility] for severe hyperkalemia and acute kidney injury. P hiwot has been complaining of shortness of breath and weakness for a few days. Patient also complaining of sore throat. Patient weakness and shortness of breath progressed so he eventually presented to [facility] where he was evaluated. Patient noted to be anemic and FOBT positive REVIEW OF SYSTEMS: CONSTITUTIONAL: No fever, no malaise,. CARDIOVASCULAR: No chest pain, no palpitations, no syncope. PULMONARY: As mentioned above GASTROINTESTINAL: No diarrhea, no nausea, no vomiting, no abdominal pain. NEUROLOGICAL: No headaches, no weakness, PHYSICAL EXAMINATION: GENERAL: The patient is alert and oriented x3, not in any acute distress. Well developed, well nourished. HEENT: Pupils are round and equally reacting to light. EOMI. No scleral icterus. No conjunctival pallor. Normocephalic, atraumatic. No pharyngeal erythema. No thyromegaly. CARDIOVASCULAR: S1 and S2 present. No murmurs, rubs, or gallops. PULMONARY: Coarse breath sound bilaterally, diminished at the bases, crackles audible ABDOMEN: Soft, nontender, nondistended, normoactive bowel sounds. No palpable organomegaly. MUSCULOSKELETAL: No joint swelling or deformity. EXTREMITIES: No cyanosis, clubbing, or pedal edema. NEUROLOGICAL: Gross neurological examination did not reveal any focal deficits. SKIN: No rashes. Assessment and plan Anemia with FOBT postive -Patient will need colonoscopy at some point. No need for acute intervention -Monitor H/H -Tranfuse as necessary Objective - Vital Signs Vital signs: Vital Signs Temp 98.0 F 04/11/23 14:00 Pulse 70 04/11/23 14:00 Resp 15 04/11/23 14:00 BP 107/59 04/11/23 14:00 Pulse Ox 98 04/11/23 14:00 FiO2 Intake & Output 04/10/23 04/11/23 04/11/23 18:59 06:59 18:59 Output Total 400 700 Balance -400 -700 Output: Urine 400 700 Straight 400 Other: Voiding Method Urinal Urinal Indwelling Catheter # Bowel Movements 1 - Labs CBC & Chem 7: 04/10/23 12:44 04/11/23 06:35 Labs: Abnormal Lab Results - Last 24 Hours (Table) 04/11/23 Range/Units 06:35 Sodium 134 L (137-145) mmol/L Chloride 95 L (98-107) mmol/L BUN 130 H* (9-20) mg/dL Creatinine 3.55 H (0.66-1.25) mg/dL Vitamin B12 1077.0 H (200.0-944.0) pg/mL
--- NOTE | 2023-04-11 16:37 | XR ---
EXAMINATION TYPE: XR chest 1V portable DATE OF EXAM: 04/11/2023 4:12 PM CLINICAL INDICATION:Male, 87 years old with history of Follow up pneumothorax; COMPARISON: Chest radiographs from 04/11/2023 TECHNIQUE: XR chest 1V portable Frontal view of the chest. FINDINGS: Lungs/Pleura: Persistent large left pneumothorax. The right lung is relatively clear. There is no rommel dence of pleural effusion, focal consolidation, or pneumothorax. Pulmonary vascularity: Unremarkable. Heart/mediastinum: Cardiomediastinal silhouette is enlarged and stable. Atherosclerotic calcificatio ns are seen in the aorta. Musculoskeletal: Right-sided rib fractures again seen. IMPRESSION: Persistent large left pneumothorax
[2023-04-12 09:17] LABS: Basophils # (A) 0.02 X 10*3/uL (0.00-0.10); Basophils % (A) 0.3 %; Eosinophils # (A) 0.57 X 10*3/uL (0.04-0.35); Eosinophils % (A) 8.6 %; HGB 7.6 g/dL (13.0-17.0); Lymphocytes # (A) 1.02 X 10*3/uL (0.90-5.00); Lymphocytes % (A) 15.5 %; MCH 31.7 pg (27.0-32.0); MCHC 31.7 g/dL (32.0-37.0); Monocytes # (A) 0.73 X 10*3/uL (0.20-1.00); Monocytes % (A) 11.1 %; NRBC Per 100 WBC 0 X 10*3/uL (0.00-0.01); Neutrophils # (A) 4.23 X 10*3/uL (1.80-7.70); Neutrophils % (A) 64.2 %; Platelet Count 186 X 10*3/uL (140-440); RDW 15.6 % (11.5-14.5); WBC 6.59 X 10*3/uL (4.50-10.00)
--- NOTE | 2023-04-12 09:39 | XR ---
EXAM: XR chest 1V portable CLINICAL INDICATION:Male, 87 years old with history of Left pneumothorax; [facility] COMPARISON: 04/11/2023 and before TECHNIQUE: Chest single view. FINDINGS: Lines/tubes/devices: EKG leads and oxygen tubing overlie the chest. No indwelling lines are seen. Cardiomediastinum: Cardiac silhouette appears grossly stable but partially obscured by the left chest opacities; suspect at least mild cardiomegaly. Moderate to heavy calcification of the aorta. Vasculature: No increased pulmonary vasculature. Lungs/pleura: Persistent moderate to large left hydropneumothorax, with about 30-40% pneumothorax component. Underl lilia consolidation/collapse of the left lung appears similar. Right chest appears stable. Bones/soft tissues: Osseous structures appear grossly unchanged. Left-sided rib fractures again seen. Regional soft tissu es appear unremarkable. IMPRESSION: Unchanged appearance of moderate to large left-sided hydropneumothorax, with consolidation/collapse o f the left lung.
--- NOTE | 2023-04-12 11:20 | P.PN ---
Subjective Progress Note Date: 04/12/23 I am seeing this patient in consultation today 04/02/2023 for dyspnea and left- sided pleural effusion. He is currently in the emergency room. He was transferred from [facility] late last night for severe hyperkalemia and acute kidney injury. Patient is a 87-year-old white male with past medical history significant for chronic kidney disease, congestive heart failure, atrial fibrillation anticoagulated on Eliquis, hyperlipidemia, COPD, and BPH. Patient is technically a poor historian. Apparently, he is complaining of shortness of breath, weakness and sore throat over the last several days. This progressively worsened, and he went into [facility] to be evaluated. Patient was found to be severely hyperkalemic. He was also found to be anemic and was transfused 1 unit PRBC. He was transferred to [facility]. Patient is currently resting in bed, on 2 L/min nasal cannula, in no acute distress. He is weak and cannot sit up in bed without assistance. Becomes short of breath with any kind of activity. He denies any chest pain, heart palpitations, or syncopal events. He does have bilateral lower extremity swelling. He has an occasional nonproductive cough. Denies any sputum production, fevers. Chest x-ray on arrival shows cardiomegaly, pulmonary vascu lar congestion, and interstitial edema. There is a moderate to large left-sided pleural effusion and small right pleural effusion.. Patient was given 60 mg of IV Lasix. A Riley catheter was inserted, and the patient has approximately 800 mL of concentrated urine. Patient states that earlier in the week he has had troubles urinating. He voids about 2-3 times per day. Endorses dysuria. Denies any hematuria, urinary frequency. Urinalysis on arrival not concerning for UTI. Trace protein. He does have baseline chronic kidney disease. Ultrasound of the abdomen and bladder did not show any hydronephrosis. Potassium level on arrival was elevated at 8.4 and is down to 5 point 3:06 amp sodium bicarb, 10 g Lokelma, 10 units insulin, 2 A D50 W, calcium gluconate, and the above-mentioned Lasix. Nephrology has been consulted. There is D5W with 3 amp sodium bicarb infusing at 50 MLS per hour. BMP on arrival has a sodium 138, testing 8.4, chloride 108, serum bicarb 18, BUN 74, creatinine 3.68, and glucose 85. Lactic acid level was 3.8 on arrival and is down to 1.6. Troponin less daniel n 0.012. NT proBNP 57,800. ECG shows normal sinus rhythm with chronic left bundle branch block without any obvious hyperkalemic changes. CBC on arrival: WBC count 8.4, hemoglobin 10.7, hematocrit 34, platelets 121. Group A strep negative. No signs of bleeding. Patient has chronic anemia. Patient denies any acute blood loss. No bloody bowel movements, melena, hematemesis. No abdominal pain or diarrhea. Vital signs are stable. The patient is seen today April 03, 2023 in follow-up in the emergency department. He is currently sitting up on the stretcher. Awake and alert in no acute distress. He is breathing a bit easier today compared to yesterday. He states he is about 50% better. He is still somewhat bronchospastic and wheezing. White count 8.6. Hemoglobin 8.1. Platelets 127. Sodium 139. Potassium 5.0. BUN 89. Creatinine 4.02. Glucose 118. He is continued on IV diuretics. Anticoagulated with Eliquis. Continued on bronchodilators. Currently in a -1.2 L balance. Making good urine. The patient is seen today April 04, 2023 in follow-up on the regular medical floor. He is awake and alert in no acute distress. Resting fairly comfortably in bed. Denies any worsening shortness of breath, cough or congestion. He is maintaining O2 saturation in the 90s on 2 L/min per nasal cannula. Chest x-ray does reveal increasing left pleural effusion and a right-sided pleural effusion. Echocardiogram confirms a right-sided pleural effusion measuring 11.9 cm, left- sided pleural effusion at 10.8 cm. The patient is currently on Eliquis this will be placed on hold for possible left-sided thoracentesis tomorrow. Count 9.0. Hemoglobin 7.8. Platelets 140. Sodium 140. Potassium 4.8. Bicarb 28. BUN 87. Creatinine 4.1. Glucose 88. He remains on Lasix 60 mg IV twice a day. Currently net -1.5 L balance The patient is seen today April 05, 2023 in follow-up on the regular medical floor. He is currently sitting up in bed. Awake and alert in no acute distress. He is maintaining O2 saturations in the 90s 2 L/min per nasal cannula. He is been afebrile. Hemodynamically stable. He did undergo a left- sided thoracentesis today with 1.4 L of straw-colored fluid removed. Fluid sent for analysis and cytology. Follow-up chest x-ray reveals a tiny left apical pneumothorax. Sodium 137. Potassium 4.1. Bicarb 31. BUN 97. Creatinine 3.86. Glucose 101. Remains on IV diuretics. Currently in a -2.8 L balance. The patient is seen today April 06, 2023 in follow-up on the regular medical floor. He is awake and alert no acute distress. He is resting comfortably in bed. He is maintaining good O2 saturations in the 90s on 2 L/min per nasal cannula. He remains on IV diuretics. Currently net -2.7 L balance. He is status post left-sided thoracentesis yesterday with 1.4 L of straw-colored fluid removed. Cytology pending. Fluid analysis transudate with a total protein of 2.6 and an LDH of 80. Today's chest x-ray shows small bilateral effusions. No evidence of pneumothorax. Count 8.7. Hemoglobin 7.7. Platelets 139. Sodium 1 39. Potassium 4.2. Bicarb 29. BUN 91. Creatinine 4.0. The patient is seen today April 07, 2023 in follow-up on the regular medical floor. He is resting comfortably in bed. Awake and alert in no acute distress. Maintaining O2 saturations in the 90s on 2 L/min per nasal cannula. He is cont inued on bronchodilators and oral diuretics. Currently net -1.2 L balance. Follow-up chest x-ray revealed creasing consolidation and pleural effusion on the left. Likely represents a hydropneumothorax of approximately 5 to 10% pneumothorax noted. No significant change. The patient is seen today April 08, 2023 in follow-up on the regular medical floor. He is awake and alert in no acute distress. Maintaining O2 saturations in the 90s on 2 L/min per nasal cannula. Laying in bed. CT scan of the chest revealed moderate-sized bilateral pleural effusions. Left effusion appears loculated and there is additionally a left anterior pneumothorax at approximately 15 to 20%. Consolidation and partial collapse of the left lung. Atelectasis in the right posterior lung. Pleural fluid cultures revealed no growth, no malignancy. No plans for chest tube placement. Eliquis has been resumed. White count 8.5. Hemoglobin 7.7. Platelets 146. Sodium 139. Potassium 3.9. Bicarb 29. BUN 96. Creatinine 3.9. The patient is seen today April 09, 2023 in follow-up on the regular medical floor. He is resting comfortably in bed. Awake and alert in no acute distress. Maintaining O2 saturations in the 90s on 2 L/min per nasal cannula. He denies any worsening shortness of breath, cough or congestion. No new labs today. No chest x-ray today. He is anticoagulated with Eliquis. The patient is seen today April 10, 2023 in follow-up on the regular medical floor. He is awake and alert in no acute distress. Resting fairly comfortably in bed. Today's chest x-ray shows reaccumulation of fluid in the left chest. He is currently on DuoNeb inhalation, Pulmicort inhalations. Remains on oral diuretics. No new labs today. Pleural fluid cultures revealed no growth. He is anticoagulated with Eliquis. The patient is seen today April 11, 2023 in follow-up on the regular medical floor. He is sitting up in bed. Awake and alert in no acute distress. Maintaining O2 saturations in the 90s on 2 L/min per nasal cannula. Sodium 134. Potassium 4.5. Bicarb 30. BUN 130. Creatinine 3.55. Glucose 88. Ultrasound of the chest did reveal a significant left-sided pleural effusion. He under went a second thoracentesis today with 1.2 L of dark yellow fluid removed. Unfortunately, follow-up chest x-ray does reveal a moderate to large left pneumothorax. The patient remains asymptomatic. Repeat chest x-ray pending. He remains on bronchodilators. Remains on oral diuretics. Plan a -1.1 L balance. The patient is seen today April 12, 2023 in follow-up on the regular medical floor. He is awake and alert in no acute distress. Maintaining O2 saturations in the 90s on 2 L/min per nasal cannula. He denies any worsening shortness of breath, cough or congestion. Denies any chest pain. Follow-up chest x-ray continues to show a left apical hydropneumothorax. Slight improvement today compared to yesterday. Pleural fluid cultures revealed no growth. White count 6.5. Hemoglobin 7.6. Platelets 186. Stool for occult blood was positive. He is continued on bronchodilators. Continued on diuretics. Currently in a -700 mL balance. Objective - Vital Signs Vital signs: Vital Signs Temp 98.2 F 04/12/23 08:00 Pulse 72 04/12/23 09:25 Resp 16 04/12/23 08:00 BP 96/60 04/12/23 08:00 Pulse Ox 92 L 04/12/23 08:00 FiO2 Intake & Output 04/11/23 04/12/23 04/12/23 18:59 06:59 18:59 Output Total 400 300 Balance -400 -300 Output: Urine 400 300 Other: Voiding Method Indwelling Catheter Indwelling Catheter # Bowel Movements 2 1 - Exam GENERAL EXAM: Alert, pleasant 87-year-old male, resting comfortably in bed, on 2 L nasal cannula, in no apparent distress. HEAD: Normocephalic and atraumatic EYES: Normal reaction of pupils, equal size. NOSE: Clear with pink turbinates. THROAT: Mild erythema, no exudates NECK: No masses, no JVD. CHEST: No chest wall deformity. LUNGS: Equal air entry with right basilar inspiratory crackles. Diminished in the left lung base. CVS: S1 and S2 normal with no audible murmur, regular rhythm. No extra heart sounds ABDOMEN: No hepatosplenomegaly, active bowel sounds, no guarding or rigidity. SPINE: No scoliosis or deformity SKIN: No rashes CENTRAL NERVOUS SYSTEM: No focal deficits, tone is normal in all 4 extremities. EXTREMITIES: There is moderate bilateral lower extremity nonpitting edema. No clubbing, or cyanosis. Peripheral pulses are intact. - Labs CBC & Chem 7: 04/12/23 06:12 04/11/23 06:35 Labs: Abnormal Lab Results - Last 24 Hours (Table) 04/11/23 04/12/23 Range/Units 06:35 06:12 RBC 2.40 L (4.40-5.60) X 10*6/uL Hgb 7.6 L (13.0-17.0) g/dL Hct 24.0 L (39.6-50.0) % MCV 100.0 H (80.0-97.0) FL MCHC 31.7 L (32.0-37.0) g/dL RDW 15.6 H (11.5-14.5) % Eosinophils # 0.57 H (0.04-0.35) X 10*3/uL Vitamin B12 1077.0 H (200.0-944.0) pg/mL Assessment and Plan Assessment: Acute hypoxemic respiratory failure, secondary to acute systolic CHF exacerbation and fluid overload. Chest x-ray shows cardiomegaly, pulmonary vascular congestion, and interstitial edema. Patient also has moderate to large left-sided pleural effusion and a small right pleural effusion. NT proBNP was elevated at 57,800. Status post left-sided thoracentesis April 05, 2023 with 1.4 L of straw-colored fluid removed. Fluid analysis transudate, cytology for malignancy. CT scan of the chest and follow-up chest x-ray reveals stable hydropneumothorax of approximately 15 to 20%. Chest x-ray today April 10, 2023 shows significant reaccumulation of fluid in the left chest. Ultrasound reveals a recurrent left pleural effusion measuring 10.4 cm. A second thoracentesis was performed April 11, 2023 with 1.2 L of fluid removed. No fluid analysis or cytology sent at this time Moderate left-sided pneumothorax post procedure, follow-up chest x-ray pending Acute on chronic kidney disease Severe hyperkalemia, improved Lactic acidosis, improved Chronic obstructive pulmonary disease, stable History of paroxysmal atrial fibrillation, anticoagulated on Eliquis, currently normal sinus Benign prostatic hyperplasia Anemia of chronic disease, patient reportedly received 1 unit PRBC at [facility] Plan: The patient was seen and evaluated Chest x-ray, labs and medications reviewed Chest x-ray showing continued pneumothorax, will repeat the chest x-ray in a.m. Patient is stable and on 2 L with no worsening pulmonary complaints He is quite frail and hoping to avoid chest tube insertion Continue oral diuretics We will continue to follow I have personally seen and examined the patient, performed the documentation and the assessment and plan as written. Number of minutes spent on the visit: 10.
--- NOTE | 2023-04-12 11:37 | P.PN ---
Subjective Patient is seen for follow-up for acute kidney injury on top of chronic kidney disease. Serum creatinine has decreased to 3.5 however BUN is significantly elevated at 130 from underlying GI bleed.. Hemoglobin is low at 7.6 Urine output at 1100ml for 24 hours. Maintained on oral Lasix. No complaints of shortness of breath. Overall feeling better. No active bleeding per patient. Stool for occult blood was positive. Objective - Vital Signs Vital signs: Vital Signs Temp 98.2 F 04/12/23 08:00 Pulse 72 04/12/23 09:25 Resp 16 04/12/23 08:00 BP 96/60 04/12/23 08:00 Pulse Ox 92 L 04/12/23 08:00 FiO2 Intake & Output 04/11/23 04/12/23 04/12/23 18:59 06:59 18:59 Output Total 400 300 Balance -400 -300 Output: Urine 400 300 Other: Voiding Method Indwelling Catheter Indwelling Catheter # Bowel Movements 2 1 - Exam Patient is awake, comfortable, no acute distress Examination of the heart S1 and S2 Examination of the lungs bilateral breath sounds are heard Abdomen is soft nontender Examination lower extremities shows no significant edema RN INTERVENTIONAL exam grossly intact - Labs CBC & Chem 7: 04/12/23 06:12 04/11/23 06:35 Labs: Abnormal Lab Results - Last 24 Hours (Table) 04/11/23 04/12/23 Range/Units 06:35 06:12 RBC 2.40 L (4.40-5.60) X 10*6/uL Hgb 7.6 L (13.0-17.0) g/dL Hct 24.0 L (39.6-50.0) % MCV 100.0 H (80.0-97.0) FL MCHC 31.7 L (32.0-37.0) g/dL RDW 15.6 H (11.5-14.5) % Eosinophils # 0.57 H (0.04-0.35) X 10*3/uL Vitamin B12 1077.0 H (200.0-944.0) pg/mL Assessment and Plan Assessment: 1. Acute kidney injury secondary to ATN secondary to anemia and secondary to urinary retention. Renal function has improved however BUN is disproportionately elevated secondary to underlying GI bleed. No h ydronephrosis noted on kidney ultrasound. 2. Chronic kidney disease stage IV with baseline creatinine near 3 secondary to nephrosclerosis and obstructive uropathy. 3. Hyperkalemia secondary to acute kidney injury, acidosis and urinary retention. Improved with medical management. 4. Volume overload with pleural effusions. 5. Acute blood loss anemia status post blood transfusion this admission. Eliquis on hold. Possible GI bleed. Maintained on Aranesp 6. Acute on chronic systolic CHF ejection fraction of 30 to 35% with moderate mitral and tricuspid regurgitation. 7. Metabolic acidosis secondary to acute kidney injury improved with bicarb drip. 8. Urinary retention status post Riley catheter placement. On Flomax. 9. Left hydropneumothorax, stable Plan: Continue with current dose of oral Lasix. Eliquis on hold. Continue aranesp. Repeat labs in a.m.
--- NOTE | 2023-04-12 12:00 | P.PN ---
Subjective Progress Note Date: 04/12/23 CHIEF COMPLAINT: GI bleed HISTORY OF PRESENT ILLNESS: The patient is a 87 year old male who was with acute kidney injury including pre-existing cardiomyopathy. He has been on blood thinners. He has anemia. Patient being evaluated for GI bleed due to positive fecal occult blood test and general surgery is consulted for GI bleed. Hemoglobin trending downward. Hemoglobin less than 8.0. PAST MEDICAL HISTORY: See list and reviewed PAST SURGICAL HISTORY: See list and reviewed MEDICATIONS: See list and reviewed ALLERGIES: See list and reviewed SOCIAL HISTORY: See list and reviewed FAMILY HISTORY: See list and reviewed REVIEW OF ORGAN SYSTEMS: CONSTITUTIONAL: No fevers or chills. No recent weight loss. EYES: Denies any trouble with vision. No glasses. HEENT: No difficulties with hearing. No nosebleeds. No difficulty swallowing. RESPIRATORY: Has asthma. Has chronic obstructive pulmonary disease. CARDIOVASCULAR: Has atrial fibrillation and ischemic cardiomyopathy. Has congestive heart failure. Has hyperlipidemia. Has hypertensive heart disease GASTROINTESTINAL: Has gastroesophageal reflux disease. History of alcohol abuse disorder. GENITOURINARY: Has prostate disorder NEUROLOGICAL: Denies any numbness or tingling along the distal extremities. No seizure disorders or headaches. MUSCULOSKELETAL: Has back pain, stiffness or joint arthritis. Has gout SKIN: No current skin cancer. No rash. PSYCHIATRIC: Denies current depression or suicidal thoughts. ENDOCRINE: Denies current thyroid disorders. Denies any blood sugar glucose intolerance. HEME/LYMPHATIC: Has anemia. ALLERGY/IMMUNOLOGY: No immunoglobulin therapy. No immune deficiencies. BREAST: Denies current breast lumps, pain or nipple discharge. PHYSICAL EXAM: VITALS: Reviewed CONSTITUTIONAL: Well developed and in no acute distress. EYES: Conjuctivae without sclera icterus. Extraocular movements grossly intact. HEAD, EARS, NOSE, THROAT: Moist buccal mucosa. Head is atraumatic, normocephalic. Hears conversational speech. No nasal drainage. NECK: Supple. No JV distention. No thyroidomegaly. RESPIRATORY: Non-labored respirations and equal bilateral excursions. No gross wheezes. CARDIOVASCULAR: Palpable 2+ radial pulses. ABDOMEN: No abdominal pain. LYMPH: No neck lymphadenopathy. MUSCULOSKELETAL: No clubbing cyanosis or edema SKIN: Warm and well perfused with good skin turgor. NEUROLOGIC: Cranial nerves II through XII grossly intact. No focal or lateralizing signs. PSYCH: Appropriate affect. Alert and oriented to person, place and time. Displays appropriate insight. CLINCAL LABS: Reviewed. Hemoglobin down to 10.7-8.1, anemia. Creatinine elevated 4.1 IMAGING: Independently reviewed. EKG demonstrates left bundle branch block STUDIES: CT scan from 2016 reviewed demonstrates presence of diverticulosis including fecal impaction. ASSESSMENT: 1. Anemia 2. GI bleed 3. Acute on chronic kidney failure 4. Atrial fibrillation 5. Ischemic cardiomyopathy 6. Chronic obstructive pulmonary disease PLAN: 1. IV fluid hydration. 2. May benefit from endoscopies while inpatient as patient becoming more anemic. 3. Patient agreeable for upper endoscopy tomorrow. 4. Separately he does complain of troubles with his eyes. Information relayed to nurse for primary care team regarding consultation to ophthalmology if needed. 5. Otherwise we will proceed with upper endoscopy due to GI bleed with anemia. ADVANCE DIRECTIVE: CODE STATUS in chart Thank you for this kind consultation. Objective - Vital Signs Vital signs: Vital Signs Temp 98.2 F 04/12/23 08:00 Pulse 72 04/12/23 09:25 Resp 16 04/12/23 08:00 BP 96/60 04/12/23 08:00 Pulse Ox 92 L 04/12/23 08:00 FiO2 Intake & Output 04/11/23 04/12/23 04/12/23 18:59 06:59 18:59 Output Total 400 300 Balance -400 -300 Output: Urine 400 300 Other: Voiding Method Indwelling Catheter Indwelling Catheter Indwelling Catheter # Bowel Movements 2 1 - Labs CBC & Chem 7: 04/27/23 05:45 04/27/23 05:45 Labs: Abnormal Lab Results - Last 24 Hours (Table) 04/11/23 04/12/23 Range/Units 06:35 06:12 RBC 2.40 L (4.40-5.60) X 10*6/uL Hgb 7.6 L (13.0-17.0) g/dL Hct 24.0 L (39.6-50.0) % MCV 100.0 H (80.0-97.0) FL MCHC 31.7 L (32.0-37.0) g/dL RDW 15.6 H (11.5-14.5) % Eosinophils # 0.57 H (0.04-0.35) X 10*3/uL Vitamin B12 1077.0 H (200.0-944.0) pg/mL
[2023-04-12 12:51] LABS: ALT 80 U/L (10-49); AST 58 U/L (14-35); Albumin 3.2 g/dL (3.8-4.9); Albumin/Globulin Ratio 1.23 Ratio (1.60-3.17); Alkaline Phosphatase 143 U/L (41-126); BUN/Creat Ratio 31.28 Ratio (12.00-20.00); Carbon Dioxide 27.1 mmol/L (21.6-31.8); Chloride 93 mmol/L (96-109); Globulin 2.6 g/dL (1.6-3.3); Glucose 99 mg/dL (70-110); Potassium 4.8 mmol/L (3.5-5.5); Sodium 136 mmol/L (135-145); Total Bilirubin 0.3 mg/dL (0.3-1.2); Total Protein 5.8 g/dL (6.2-8.2)
--- NOTE | 2023-04-12 13:02 | P.PN ---
Subjective Progress Note Date: 04/12/23 Patient is a 87-year-old white male with past medical history significant for chronic kidney disease, congestive heart failure, atrial fibrillation anticoagulated on Eliquis, hyperlipidemia, COPD, and BPH, who was transferred from [facility] for severe hyperkalemia and acute kidney injury. Filiberto gomes has been complaining of shortness of breath and weakness for a few days. Patient also complaining of sore throat. Patient weakness and shortness of breath progressed so he eventually presented to [facility] where he was evaluated, patient was found to have elevated potassium levels of 8.4, patient was given hyperkalemia protocol and received sodium bicarb, Lokelma, insulin and dextrose. Chest x-ray done showed large left pleural effusion small right pleural effusion, patient was transferred to [facility]. Patient has been complaining of shortness of breath on exertion and rest. Denies any chest pain. There is complaint of swelling of lower extremities. Patient complaining of nonproductive cough. Denies any fevers or chills Patient admitted to internal medicine service 04/03. Patient seen and examined. 2D echo done showed LVEF of 35% with global hypokinesis, severe biatrial enlargement, moderate mitral regurg, severe aortic stenosis. 04/04. Patient seen and examined. States breathing is improving, still gets short of breath on exertion. 04/05. Patient seen and examined. Patient being planned for thoracentesis this morning with pulmonary medicine. States breathing is improved. Denies any nausea or vomiting 04/06. Patient seen and examined. States breathing has improved, feels much better after thoracentesis yesterday. Labs done this morning showed WBC 8.7, hemoglobin 7.7, platelet count 139, sodium 139, potassium 4.2, BUN 90, creatinine 4 04/07/2023 Patient is currently sitting up in the chair. Awake alert and oriented 3. Currently on 2 L oxygen via nasal cannula. Patient is being cannula on by mouth twice a day. Also on DuoNeb's and Pulmicort inhalation. No comments of nausea or vomiting. Tolerating oral diet. No bowel movement today. Laboratory data showed sodium 138 potassium 4.0 chloride 95 BUN 91.1 and creatinine 4.0 Patient is being followed by pulmonary and nephrology. Chest x-ray showed increasing consolidation and pleural effusion on the left. Likely represent a hydropneumothorax of approximately 5-10% pneumothorax noted. No significant interval change. 04/08/2023 Patient is currently sitting which it. Awake alert and oriented 3. requiring oxygen at a 2 L via nasal cannula. pleural fluid cultures showed no growth. No plans for chest tube placement. Pulmonary is on board. laboratory data showed sodium 139, potassium 3.9, chloride 95, BUN 96.5 and creatinine 3.1. Nephrology and pulmonology is on board. 04/09/2023 Patient is sitting in the chair. Awake alert and oriented 3. Requiring 2 L oxygen with nasal cannula. Patient does have home oxygen. Patient has been afebrile. Able to tolerate oral diet. Pleural fluid culture is negative. Cytology is negative for malignancy.. Repeat chest x-ray was ordered for tomorrow. No plan for chest tube placement at this time. Pulmonary is on board. No new laboratory data today. 04/11. Patient seen and examined. Repeat chest x-ray done showed pneumothorax moderate to large left, currently not in respiratory distress. Denies any blood in the stools 04/12. Patient seen and examined. Labs done this morning showed WBC 6.5, hemoglobin 7.6, platelet count 186, sodium 130, potassium 4.8, BUN 122, creatinine 3.9. FOBT was positive, surgery was consulted, they recommended doing EGD which is scheduled for tomorrow morning. N.p.o. at midnight REVIEW OF SYSTEMS: CONSTITUTIONAL: No fever, no malaise,. CARDIOVASCULAR: No chest pain, no palpitations, no syncope. PULMONARY: As mentioned above GASTROINTESTINAL: No diarrhea, no nausea, no vomiting, no abdominal pain. NEUROLOGICAL: No headaches, no weakness, PHYSICAL EXAMINATION: GENERAL: The patient is alert and oriented x3, not in any acute distress. Well developed, well nourished. HEENT: Pupils are round and equally reacting to light. EOMI. No scleral icterus. No conjunctival pallor. Normocephalic, atraumatic. No pharyngeal erythema. No thyromegaly. CARDIOVASCULAR: S1 and S2 present. No murmurs, rubs, or gallops. PULMONARY: Coarse breath sound bilaterally, diminished at the bases, crackles audible ABDOMEN: Soft, nontender, nondistended, normoactive bowel sounds. No palpable organomegaly. MUSCULOSKELETAL: No joint swelling or deformity. EXTREMITIES: No cyanosis, clubbing, or pedal edema. NEUROLOGICAL: Gross neurological examination did not reveal any focal deficits. SKIN: No rashes. Assessment and plan Hyperkalemia Acute hypoxic respiratory failure Acute on chronic kidney disease Left-sided pneumothorax Acute on chronic systolic CHF History paroxysmal A-fib COPD Lactic acidosis Bilateral pleural effusion aortic stenosis Monitor vital signs Monitor CBC Monitor CMP Continue telemetry monitoring 2D echo done showed LVEF of 35% with global hypokinesis, severe biatrial enlargement, moderate mitral regurg, severe aortic stenosis. Avoid nephrotoxic agents Continue breathing treatment Continue Lasix 40 mg twice a day Status post left-sided thoracentesis with removal of 1.4 L of fluid Cytology is negative for malignancy.. Cultures negative. No plans for chest tube placement. Repeat chest x-ray done on 04/12 showed moderate to large left sided hydropneumothorax unchanged as compared to 04/11, pulmonology recommend monitoring for now FOBT positive, surgery consulted, hold Eliquis, planning EGD tomorrow morning Nephrology following Cardiology following Labs and medication were reviewed.. Continue same treatment. Continue with symptomatic treatment. Resume home medication. Monitor labs and vitals. DVT and GI prophylaxis. Further recommendations as per clinical course of the patient Dictation was produced using [employer] dictation software. please excuse any grammatical, word or spelling errors. Objective - Vital Signs Vital signs: Vital Signs Temp 98.2 F 04/12/23 08:00 Pulse 72 04/12/23 09:25 Resp 16 04/12/23 08:00 BP 96/60 04/12/23 08:00 Pulse Ox 92 L 04/12/23 08:00 FiO2 Intake & Output 04/11/23 04/12/23 04/12/23 18:59 06:59 18:59 Output Total 400 300 Balance -400 -300 Output: Urine 400 300 Other: Voiding Method Indwelling Catheter Indwelling Catheter Indwelling Catheter # Bowel Movements 2 1 - Labs CBC & Chem 7: 04/12/23 06:12 04/12/23 06:12 Labs: Abnormal Lab Results - Last 24 Hours (Table) 04/11/23 04/12/23 04/12/23 Range/Units 06:35 06:12 06:12 RBC 2.40 L (4.40-5.60) X 10*6/uL Hgb 7.6 L (13.0-17.0) g/dL Hct 24.0 L (39.6-50.0) % MCV 100.0 H (80.0-97.0) FL MCHC 31.7 L (32.0-37.0) g/dL RDW 15.6 H (11.5-14.5) % Eosinophils # 0.57 H (0.04-0.35) X 10*3/uL Chloride 93 L (96-109) mmol/L Anion Gap 15.90 H (4.00-12.00) mmol/L BUN 122.0 A* (9.0-27.0) mg/dL Creatinine 3.9 H (0.6-1.5) mg/dL Est GFR (CKD-EPI) 14 L (>=60) BUN/Creatinine Ratio 31.28 H (12.00-20.00) Ratio AST 58 H (14-35) U/L ALT 80 H (10-49) U/L Alkaline Phosphatase 143 H (41-126) U/L Total Protein 5.8 L (6.2-8.2) g/dL Albumin 3.2 L (3.8-4.9) g/dL Albumin/Globulin Ratio 1.23 L (1.60-3.17) Ratio Vitamin B12 1077.0 H (200.0-944.0) pg/mL
[2023-04-12] MEDS: ARTIFICIAL TEARS-HYPROMELLOSE DROPS 15 ML BTL BOTH EYES PRN (13:27)
--- NOTE | 2023-04-12 19:51 | XR ---
EXAMINATION TYPE: XR chest 1V portable DATE OF EXAM: 04/12/2023 7:45 PM CLINICAL INDICATION:Male, 87 years old with history of left pneumothorax; [facility] COMPARISON: Chest radiographs from 04/12/2023. TECHNIQUE: XR chest 1V portable Frontal view of the chest. FINDINGS: Lungs/Pleura: Persistent moderate to large left pneumothorax with small moderate pleural effusion. Th ere is no evidence of pleural effusion, focal consolidation, or pneumothorax. Pulmonary vascularity: Unremarkable. Heart/mediastinum: Cardiomediastinal silhouette is unremarkable. Musculoskeletal: Left-sided rib fractures remain present. IMPRESSION: 1. No significant change in moderate to large left pneumothorax. 2. Small to moderate left pleural effusion.
[2023-04-13] MEDS ORDERED: PROPOFOL 10 MG/ML 20 ML VIAL IV ONE (07:54)
[2023-04-13] MEDS ORDERED: LIDOCAINE 1% INJ 10MG/ML (20 ML MDV) ONE (07:54)
[2023-04-13] MEDS: SODIUM CHLORIDE 0.9% 500 ML 500 ML IV ONE ×2 (07:58→08:06)
--- NOTE | 2023-04-13 08:35 | P.PCN ---
Date of Procedure: 04/13/23 Description of Procedure: PREOPERATIVE DIAGNOSIS: Acute gastrointestinal bleeding Positive stool occult blood Anemia POSTOPERATIVE DIAGNOSIS: Acute on chronic gastritis with bleeding OPERATION: Esophagogastroduodenoscopy SURGEON: Guerda Dueñas MD ANESTHESIA: MAC. INDICATIONS: The patient is a 87-year-old male who presents with anemia and gastrointestinal bleeding. Benefits and risks of the procedure were described. Informed consent was obtained. DESCRIPTION: The patient was brought into the endoscopy suite and laid in the left lateral decubitus position. An Olympus gastroscope was passed along the posterior oropharynx down to the distal esophagus where the squamocolumnar junction was encountered at 41 cm from the incisors. The stomach was entered and no bile reflux was found. Additional findings are listed below. The first through third portion of the duodenum was examined and unremarkable. Retroflexion of the scope confirmed Hill grade 2 lower esophageal valve. The squamocolumnar junction demonstrated LA grade B erosive esophagitis. The stomach was desufflated. The patient tolerated the procedure well. FINDINGS: Squamocolumnar junction 41 cm from the incisors. Diaphragmatic hiatus at 41 cm. Hill grade 2 lower esophageal valve. LA grade B erosive esophagitis. No active duodenitis. Acute gastritis with bleeding RECOMMENDATIONS: 1. Clear liquid diet 2. Recommend colonoscopy for GI bleed
[2023-04-13 08:42] LABS: Calcium 8.7 mg/dL (8.7-10.3); Carbon Dioxide 29.8 mmol/L (21.6-31.8); Chloride 92 mmol/L (96-109); Glucose 102 mg/dL (70-110); Potassium 5.1 mmol/L (3.5-5.5); Sodium 135 mmol/L (135-145)
--- NOTE | 2023-04-13 08:42 | XR ---
EXAMINATION TYPE: XR chest 1V portable DATE OF EXAM: 04/13/2023 COMPARISON: 04/12/2023 INDICATION: Left pneumothorax TECHNIQUE: Single frontal view of the chest is obtained. FINDINGS: The heart size is normal. The pulmonary vasculature is normal. Right lung appears clear. No suspicious infiltrate is evident. The large left sided pneumothorax thorax is stable in appearance. IMPRESSION: 1. Large stable left sided pneumothorax.
--- NOTE | 2023-04-13 11:01 | P.PN ---
Subjective Patient is seen in follow-up for acute kidney injury on chronic kidney disease. On po Lasix. On nasal cannula. Denies chest pain or shortness of breath. Denies any active bleeding. Vital signs are stable. General: No acute distress. HEENT: Head exam is unremarkable. LUNGS: No acute distress. HEART: Rate and Rhythm are regular. ABDOMEN: Nontender. EXTREMITITES: No edema. Objective - Vital Signs Vital signs: Vital Signs Temp 97.7 F 04/13/23 07:12 Pulse 64 04/13/23 09:06 Resp 18 04/13/23 07:12 BP 112/58 04/13/23 07:12 Pulse Ox 96 04/13/23 08:58 FiO2 Intake & Output 04/12/23 04/13/23 04/13/23 18:59 06:59 18:59 Intake Total 400 100 Output Total 275 500 Balance 125 -500 100 Weight 126.5 kg 72.9 kg Intake: IV 100 Oral 400 Output: Urine 275 500 Other: Voiding Method Indwelling Catheter Indwelling Catheter Indwelling Catheter # Bowel Movements 1 - Labs CBC & Chem 7: 04/12/23 06:12 04/13/23 05:27 Labs: Abnormal Lab Results - Last 24 Hours (Table) 04/12/23 04/13/23 Range/Units 06:12 05:27 Chloride 93 L 92 L (96-109) mmol/L Anion Gap 15.90 H 13.20 H (4.00-12.00) mmol/L BUN 122.0 A* 131.0 A* (9.0-27.0) mg/dL Creatinine 3.9 H 4.2 H (0.6-1.5) mg/dL Est GFR (CKD-EPI) 14 L 13 L (>=60) BUN/Creatinine Ratio 31.28 H (12.00-20.00) Ratio AST 58 H (14-35) U/L ALT 80 H (10-49) U/L Alkaline Phosphatase 143 H (41-126) U/L Total Protein 5.8 L (6.2-8.2) g/dL Albumin 3.2 L (3.8-4.9) g/dL Albumin/Globulin Ratio 1.23 L (1.60-3.17) Ratio Assessment and Plan Plan: Assessment: 1. Acute kidney injury secondary to ATN secondary to cardiorenal syndrome, anemia and urinary retention. Creatinine 4.2 today. No hydronephrosis noted on kidney ultrasound. Elevated BUN due to acute kidney injury and also GI bleed. 2. Chronic kidney disease stage IV with baseline creatinine near 3 secondary to nephrosclerosis and obstructive uropathy. 3. Hyperkalemia secondary to acute kidney injury, acidosis and urinary retention. Improved with medical management. 4. Volume overload with pleural effusions. Improved with diuresis. 5. Acute blood loss anemia status post blood transfusion this admission. EGD done this admission showed acute on chronic gastritis with bleeding. Colonoscopy later this week. On Aranesp. 6. Acute on chronic systolic CHF ejection fraction of 30 to 35% with moderate mitral and tricuspid regurgitation. 7. Metabolic acidosis secondary to acute kidney injury s/p bicarb drip. 8. Urinary retention status post Riley catheter placement. On Flomax. Plan: Maintain oral Lasix. Avoid nephrotoxins. Continue to monitor renal function and urine output. Continue to assess daily for need for renal replacement therapy. No urgency at this time.
[2023-04-13] MEDS: LIDOCAINE 2% (PF) 20 MG/ML 5 ML VIAL ONE (11:30)
[2023-04-13] MEDS: LACTATED RINGERS 1,000 ML IV SCH (12:26)
[2023-04-13] MEDS: PANTOPRAZOLE 40 MG/10 ML VIAL IVP SCH (12:28)
--- NOTE | 2023-04-13 12:37 | P.PN ---
Subjective HISTORY OF PRESENT ILLNESS: This is an 87-year-old male patient of Dr. Rhodes with past medical history of permanent atrial fibrillation, hypertension, dyslipidemia, chronic systolic heart failure, valvular heart disease, chronic kidney disease, chronic anemia. We have been asked to evaluate the patient for CHF. Patient states he has had sudden onset of shortness of breath since Thursday slowly worsening. He states he is taking all of his medications as directed. He is seen today in the emergency center waiting for bed on the cardiac stepdown unit. He states he continues to have some shortness of breath and dry mouth. Patient has has had multiple medication administrations for hyperkalemia managed by nephrology. He is status post IV Lasix 60 mg times once followed by 40 mg times once. Pulmonary medicine following and planning for possible thoracentesis. EKG atrial fibrillation with left bundle branch block Chest x-ray: Cardiomegaly, pulmonary vascular congestion, diffuse interstitial opacities concerning for pulmonary edema. Small right and moderate left lateral effusion. Left basilar airspace disease atelectasis or pneumonia. Chest ultrasound revealed left pleural effusion 8.3 cm pocket. WBC 8.4, hemoglobin 10.7, platelet count 121. INR 1.2. Sodium 138. Initial potassium 8.4 followed by 5.6 and 6.2. BUN 89 creatinine 3.67. Blood sugar 121. Initial lactic acid 3.8 followed by 1.6. Troponin negative x 1. proBNP 57,800. Liver function test within normal limits. Magnesium 2.3. Urinalysis negative for infection. Group A strep not detected. Home cardiac medications: Amlodipine 5 mg daily, Eliquis 2.5 mg twice daily, Lasix 20 mg daily, hydralazine 25 mg twice daily, lovastatin 20 mg at bedtime. Echocardiogram performed on 08/29/2022 revealed EF of 45%, mild to moderate mitral regurgitation. 04/03 Patient is seen today in follow-up and remains in the ER waiting for a bed on the cardiac stepdown unit. Repeat blood work reveals potassium of 5.6, BUN 87 creatinine 3.73. Patient is followed by nephrology. Echocardiogram reveals EF of 30 to 35%, severe biatrial enlargement, moderate mitral rotation. Decreased aortic valve leaflet excursion likely moderate aortic stenosis. Moderate tricuspid regurgitation. Pleural effusion noted. 04/04/2023 Patient examined this morning at the bedside. Patient denies any chest pain or pressure. He denies shortness of breath. He remains on IV Lasix twice a day. No plans for thoracentesis per pulmonary medicine. Patient has been resumed on Eliquis. Vital signs are stable. Blood pressure 114/57. 04/05/2023 Patient examined this morning at the bedside. Patient does report feeling somewhat more short of breath today in comparison to yesterday. He denies any chest pain or pressure. He remains on IV diuretics. Patient's Eliquis has been placed on hold. Plan is for possible thoracentesis today with pulmonary medicine 04/06 Yesterday, patient underwent thoracentesis with removal of [address] Reddy. Cytology is pending. Chest x-ray showed a significant improvement yesterday but it appears that the pleural effusion is returning. Patient denies having any chest pain now. He states he has chronic shortness of breath on and off for a long period of time. He does feel a lot better since yesterday's thoracentesis. He continues to have cough decreasing wheezing. Blood pressure 117/52, heart rate 72, pulse ox 96% on 2 L nasal cannula. Repeat blood work reveals hemoglobin of 7.7, sodium 139, potassium 4.2, BUN 90 and creatinine 4. Patient is also followed by nephrology for acute kidney injury. Patient has been maintained on IV Lasix 60 mg twice daily. Patient had a negative fluid balance yesterday and today and -2750. Weight is trending down. 04/07 Patient states he has more shortness of breath from yesterday and had trouble all through the night with his breathing. Pulse ox is 96% on 2 L, blood pressure 127/70, heart rate 71. Patient has a documented negative fluid balance yesterday of 2750. Weight is trending down. No repeat blood work is available at the time of this dictation. Patient has been on IV Lasix changed over to oral Lasix by nephrology yesterday. Patient states that he was told yesterday that he will not have any further thoracentesis. We will plan to confirm this with pulmonary medicine. 04/08 Patient states that his breathing is better today. He still has lower extremity edema but improving. He is currently maintained on oral Lasix 40 mg twice daily per nephrology. Patient had 2 runs of nonsustained ventricular tachycardia at 7 and 8 beats. Patient was asymptomatic. Blood pressure 115/66, heart rate in the 60s, pulse ox 94% on [address] of the chest performed yesterday revealed moderate size bilateral pleural effusions left appears somewhat loculated. Left anterior pneumothorax 15 to 20%. Consolidation and partial collapse of the left lung. Opacity in the posterior right lung likely atelectasis with superimposed infection unable to be excluded. Stable mediastinal nodes. Mild cardiomegaly. Severe coronary artery calcification and/or stents. Small pericardial effusion. Severe atherosclerotic calcifications of the aorta and branches. Enlarged pulmonary trunk can be seen in pulmonary hypertension. Repeat chest x-ray this morning reveals stable small moderate size pleural effusion. Stable left-sided hydropneumothorax. Repeat blood work reveals hemoglobin of 7.7. Potassium 3.9, BUN 96 and creatinine 3.9. 04/09 And has been resumed on Eliquis starting yesterday. He denies having any chest pain. He states he is eating and drinking okay. He has a Riley catheter in place. Yesterday patient was started on metoprolol due to nonsustained ventricular tachycardia. His heart rate has been mostly in the 50s nursing concerned that he did drop to the 40s during the night. Blood pressure 109/61, pulse ox 99% on 3 L nasal cannula. Currently heart rate is in the range of 58- 68. He has had no further episodes of ventricular tachycardia. No repeat blood work available today. 04/13/2023 Cardiology has been reconsulted for cardiac risk assessment. Patient developed worsening anemia. His anticoagulation was placed on hold. He underwent EGD this morning revealing erosive esophagitis, no active duodenitis, and active gastritis with bleeding. Colonoscopy was recommended and is scheduled for 04/15/2023. Patient evaluated at the bedside. Patient's family is present. Patient denies any chest pain or pressure. He denies any shortness of breath. He is status post Thora vent placement today by pulmonary services. Hemoglobin today 8.6. Patient denies having any bright red blood or dark tarry stools. PHYSICAL EXAM: VITAL SIGNS: Reviewed. GENERAL: Well-developed in no acute distress. NECK: Supple. No JVD or thyromegaly LUNGS: Respirations even and unlabored. Lungs diminished. HEART: Irregular rate and rhythm. S1 and S2 heard. Systolic murmur noted. EXTREMITIES: Normal range of motion. No clubbing or cyanosis. Peripheral pulses intact. Trace lower extremity edema ASSESSMENT: Acute on chronic systolic heart failure Pleural effusion status post left-sided thoracentesis 04/05/2023 and 04/11/2023 Left-sided pneumothorax, status post Thora vent placement Acute kidney injury and chronic kidney disease Severe hyperkalemia Permanent atrial fibrillation on Eliquis Hypertension Dyslipidemia Valvular heart disease with moderate MR, moderate TR, and moderate to severe aortic stenosis Nonsustained ventricular tachycardia Acute on chronic anemia, status post EGD PLAN: Continue current cardiac medications Eliquis remains on hold. Patient is s/p EGD. Colonoscopy scheduled for 04/15/2023 Recommend 2 day bowel prep with 2L prep instead of 4L Patient is at increased risk of procedural complications due to comorbidities but there are no absolute contraindications for patient to proceed from a cardiac standpoint Further recommendations pending patient course Nurse practitioner note has been reviewed by physician. Signing provider agrees with the documented findings, assessment, and plan of care documented by SURGERY MANAGER as a scribe. Objective - Vital Signs Vital signs: Vital Signs Temp 97.7 F 04/13/23 07:12 Pulse 64 04/13/23 12:01 Resp 18 04/13/23 07:12 BP 112/58 04/13/23 07:12 Pulse Ox 96 04/13/23 08:58 FiO2 Intake & Output 04/12/23 04/13/23 04/13/23 18:59 06:59 18:59 Intake Total 400 100 Output Total 275 500 Balance 125 -500 100 Weight 126.5 kg 72.9 kg Intake: IV 100 Oral 400 Output: Urine 275 500 Other: Voiding Method Indwelling Catheter Indwelling Catheter Indwelling Catheter # Bowel Movements 1 - Labs CBC & Chem 7: 04/12/23 06:12 04/13/23 05:27 Labs: Abnormal Lab Results - Last 24 Hours (Table) 04/11/23 04/12/23 04/13/23 Range/Units 06:35 06:12 05:27 Chloride 93 L 92 L (96-109) mmol/L Anion Gap 15.90 H 13.20 H (4.00-12.00) mmol/L BUN 122.0 A* 131.0 A* (9.0-27.0) mg/dL Creatinine 3.9 H 4.2 H (0.6-1.5) mg/dL Est GFR (CKD-EPI) 14 L 13 L (>=60) BUN/Creatinine Ratio 31.28 H (12.00-20.00) Ratio AST 58 H (14-35) U/L ALT 80 H (10-49) U/L Alkaline Phosphatase 143 H (41-126) U/L Total Protein 5.8 L (6.2-8.2) g/dL Albumin 3.2 L (3.8-4.9) g/dL Albumin/Globulin Ratio 1.23 L (1.60-3.17) Ratio RBC Folate 1,260 H (280 - 791) ng/mL
--- NOTE | 2023-04-13 14:26 | XR ---
EXAMINATION TYPE: XR chest 1V portable DATE OF EXAM: 04/13/2023 1:12 PM CLINICAL INDICATION:Male, 87 years old with history of left pneumothorax; [facility] COMPARISON: Chest radiographs from 04/13/2023. TECHNIQUE: XR chest 1V portable Frontal view of the chest. FINDINGS: Lungs/Pleura: There is no evidence of pleural effusion, focal consolidation. . There is a small left pneumothorax. No right pneumothorax. Pneumothorax. Pulmonary vascularity: Unremarkable. Heart/mediastinum: Cardiomediastinal silhouette is enlarged and stable. Atherosclerotic calcificatio ns are seen in the aorta. Musculoskeletal: No acute osseous pathology. Other findings: None Lines/Tubes: Left thoracotomy tube is present with persistent small pneumothorax. IMPRESSION: Decrease in left pneumothorax now small with thoracotomy tube in place.
--- NOTE | 2023-04-13 14:37 | P.PN ---
Subjective Progress Note Date: 04/13/23 Patient is a 87-year-old white male with past medical history significant for chronic kidney disease, congestive heart failure, atrial fibrillation anticoagulated on Eliquis, hyperlipidemia, COPD, and BPH, who was transferred from [facility] for severe hyperkalemia and acute kidney injury. Filiberto gomes has been complaining of shortness of breath and weakness for a few days. Patient also complaining of sore throat. Patient weakness and shortness of breath progressed so he eventually presented to [facility] where he was evaluated, patient was found to have elevated potassium levels of 8.4, patient was given hyperkalemia protocol and received sodium bicarb, Lokelma, insulin and dextrose. Chest x-ray done showed large left pleural effusion small right pleural effusion, patient was transferred to [facility]. Patient has been complaining of shortness of breath on exertion and rest. Denies any chest pain. There is complaint of swelling of lower extremities. Patient complaining of nonproductive cough. Denies any fevers or chills Patient admitted to internal medicine service 04/03. Patient seen and examined. 2D echo done showed LVEF of 35% with global hypokinesis, severe biatrial enlargement, moderate mitral regurg, severe aortic stenosis. 04/04. Patient seen and examined. States breathing is improving, still gets short of breath on exertion. 04/05. Patient seen and examined. Patient being planned for thoracentesis this morning with pulmonary medicine. States breathing is improved. Denies any nausea or vomiting 04/06. Patient seen and examined. States breathing has improved, feels much better after thoracentesis yesterday. Labs done this morning showed WBC 8.7, hemoglobin 7.7, platelet count 139, sodium 139, potassium 4.2, BUN 90, creatinine 4 04/07/2023 Patient is currently sitting up in the chair. Awake alert and oriented 3. Currently on 2 L oxygen via nasal cannula. Patient is being cannula on by mouth twice a day. Also on DuoNeb's and Pulmicort inhalation. No comments of nausea or vomiting. Tolerating oral diet. No bowel movement today. Laboratory data showed sodium 138 potassium 4.0 chloride 95 BUN 91.1 and creatinine 4.0 Patient is being followed by pulmonary and nephrology. Chest x-ray showed increasing consolidation and pleural effusion on the left. Likely represent a hydropneumothorax of approximately 5-10% pneumothorax noted. No significant interval change. 04/08/2023 Patient is currently sitting which it. Awake alert and oriented 3. requiring oxygen at a 2 L via nasal cannula. pleural fluid cultures showed no growth. No plans for chest tube placement. Pulmonary is on board. laboratory data showed sodium 139, potassium 3.9, chloride 95, BUN 96.5 and creatinine 3.1. Nephrology and pulmonology is on board. 04/09/2023 Patient is sitting in the chair. Awake alert and oriented 3. Requiring 2 L oxygen with nasal cannula. Patient does have home oxygen. Patient has been afebrile. Able to tolerate oral diet. Pleural fluid culture is negative. Cytology is negative for malignancy.. Repeat chest x-ray was ordered for tomorrow. No plan for chest tube placement at this time. Pulmonary is on board. No new laboratory data today. 04/11. Patient seen and examined. Repeat chest x-ray done showed pneumothorax moderate to large left, currently not in respiratory distress. Denies any blood in the stools 04/12. Patient seen and examined. Labs done this morning showed WBC 6.5, hemoglobin 7.6, platelet count 186, sodium 130, potassium 4.8, BUN 122, creatinine 3.9. FOBT was positive, surgery was consulted, they recommended doing EGD which is scheduled for tomorrow morning. N.p.o. at midnight 04/13. Patient seen and examined. Patient went for EGD this morning which show ed Squamocolumnar junction 41 cm from the incisors,Diaphragmatic hiatus at 41 cm,LA grade B erosive esophagitis,Acute gastritis with bleeding. REVIEW OF SYSTEMS: CONSTITUTIONAL: No fever, no malaise,. CARDIOVASCULAR: No chest pain, no palpitations, no syncope. PULMONARY: As mentioned above GASTROINTESTINAL: No diarrhea, no nausea, no vomiting, no abdominal pain. NEUROLOGICAL: No headaches, no weakness, PHYSICAL EXAMINATION: GENERAL: The patient is alert and oriented x3, not in any acute distress. Well developed, well nourished. HEENT: Pupils are round and equally reacting to light. EOMI. No scleral icterus. No conjunctival pallor. Normocephalic, atraumatic. No pharyngeal erythema. No thyromegaly. CARDIOVASCULAR: S1 and S2 present. No murmurs, rubs, or gallops. PULMONARY: Coarse breath sound bilaterally, diminished at the bases, crackles audible ABDOMEN: Soft, nontender, nondistended, normoactive bowel sounds. No palpable organomegaly. MUSCULOSKELETAL: No joint swelling or deformity. EXTREMITIES: No cyanosis, clubbing, or pedal edema. NEUROLOGICAL: Gross neurological examination did not reveal any focal deficits. SKIN: No rashes. Assessment and plan Hyperkalemia Acute hypoxic respiratory failure Acute on chronic kidney disease Left-sided pneumothorax Acute on chronic gastritis with bleeding Acute on chronic systolic CHF History paroxysmal A-fib COPD Lactic acidosis Bilateral pleural effusion aortic stenosis Monitor vital signs Monitor CBC Monitor CMP Continue telemetry monitoring 2D echo done showed LVEF of 35% with global hypokinesis, severe biatrial enl argement, moderate mitral regurg, severe aortic stenosis. Avoid nephrotoxic agents Continue breathing treatment Continue Lasix 40 mg twice a day Status post left-sided thoracentesis with removal of 1.4 L of fluid Cytology is negative for malignancy.. Cultures negative. No plans for chest tube placement. 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 Surgery recommended colonoscopy Nephrology following Cardiology following Labs and medication were reviewed.. Continue same treatment. Continue with symptomatic treatment. Resume home medication. Monitor labs and vitals. DVT a nd GI prophylaxis. Further recommendations as per clinical course of the patient Dictation was produced using [employer] [place] [employer] dictation software. please excuse any grammatical, word or spelling errors. Objective - Vital Signs Vital signs: Vital Signs Temp 97.7 F 04/13/23 07:12 Pulse 64 04/13/23 09:06 Resp 18 04/13/23 07:12 BP 112/58 04/13/23 07:12 Pulse Ox 96 04/13/23 08:58 FiO2 Intake & Output 04/12/23 04/13/23 04/13/23 18:59 06:59 18:59 Intake Total 400 100 Output Total 275 500 Balance 125 -500 100 Weight 126.5 kg Intake: IV 100 Oral 400 Output: Urine 275 500 Other: Voiding Method Indwelling Catheter Indwelling Catheter # Bowel Movements 1 - Labs CBC & Chem 7: 04/12/23 06:12 04/13/23 05:27 Labs: Abnormal Lab Results - Last 24 Hours (Table) 04/12/23 04/13/23 Range/Units 06:12 05:27 Chloride 93 L 92 L (96-109) mmol/L Anion Gap 15.90 H 13.20 H (4.00-12.00) mmol/L BUN 122.0 A* 131.0 A* (9.0-27.0) mg/dL Creatinine 3.9 H 4.2 H (0.6-1.5) mg/dL Est GFR (CKD-EPI) 14 L 13 L (>=60) BUN/Creatinine Ratio 31.28 H (12.00-20.00) Ratio AST 58 H (14-35) U/L ALT 80 H (10-49) U/L Alkaline Phosphatase 143 H (41-126) U/L Total Protein 5.8 L (6.2-8.2) g/dL Albumin 3.2 L (3.8-4.9) g/dL Albumin/Globulin Ratio 1.23 L (1.60-3.17) Ratio
--- NOTE | 2023-04-13 15:24 | P.PN ---
Subjective Progress Note Date: 04/13/23 I am seeing this patient in consultation today 04/02/2023 for dyspnea and left- sided pleural effusion. He is currently in the emergency room. He was transferred from [facility] late last night for severe hyperkalemia and acute kidney injury. Patient is a 87-year-old white male with past medical history significant for chronic kidney disease, congestive heart failure, atrial fibrillation anticoagulated on Eliquis, hyperlipidemia, COPD, and BPH. Patient is technically a poor historian. Apparently, he is complaining of shortness of breath, weakness and sore throat over the last several days. This progressively worsened, and he went into [facility] to be evaluated. Patient was found to be severely hyperkalemic. He was also found to be anemic and was transfused 1 unit PRBC. He was transferred to [facility]. Patient is currently resting in bed, on 2 L/min nasal cannula, in no acute distress. He is weak and cannot sit up in bed without assistance. Becomes short of breath with any kind of activity. He denies any chest pain, heart palpitations, or syncopal events. He does have bilateral lower extremity swelling. He has an occasional nonproductive cough. Denies any sputum production, fevers. Chest x-ray on arrival shows cardiomegaly, pulmonary vasc ular congestion, and interstitial edema. There is a moderate to large left- sided pleural effusion and small right pleural effusion.. Patient was given 60 mg of IV Lasix. A Riley catheter was inserted, and the patient has approximately 800 mL of concentrated urine. Patient states that earlier in the week he has had troubles urinating. He voids about 2-3 times per day. Endorses dysuria. Denies any hematuria, urinary frequency. Urinalysis on arrival not concerning for UTI. Trace protein. He does have baseline chronic kidney disease. Ultrasound of the abdomen and bladder did not show any hydronephrosis. Potassium level on arrival was elevated at 8.4 and is down to 5 point 3:06 amp sodium bicarb, 10 g Lokelma, 10 units insulin, 2 A D50 W, calcium gluconate, and the above-mentioned Lasix. Nephrology has been consulted. There is D5W with 3 amp sodium bicarb infusing at 50 MLS per hour. BMP on arrival has a sodium 138, testing 8.4, chloride 108, serum bicarb 18, BUN 74, creatinine 3.68, and glucose 85. Lactic acid level was 3.8 on arrival and is down to 1.6. Troponin less th an 0.012. NT proBNP 57,800. ECG shows normal sinus rhythm with chronic left bundle branch block without any obvious hyperkalemic changes. CBC on arrival: WBC count 8.4, hemoglobin 10.7, hematocrit 34, platelets 121. Group A strep negative. No signs of bleeding. Patient has chronic anemia. Patient denies any acute blood loss. No bloody bowel movements, melena, hematemesis. No abdominal pain or diarrhea. Vital signs are stable. The patient is seen today April 03, 2023 in follow-up in the emergency department. He is currently sitting up on the stretcher. Awake and alert in no acute distress. He is breathing a bit easier today compared to yesterday. He states he is about 50% better. He is still somewhat bronchospastic and wheezing. White count 8.6. Hemoglobin 8.1. Platelets 127. Sodium 139. Potassium 5.0. BUN 89. Creatinine 4.02. Glucose 118. He is continued on IV diuretics. Anticoagulated with Eliquis. Continued on bronchodilators. Currently in a -1.2 L balance. Making good urine. The patient is seen today April 04, 2023 in follow-up on the regular medical floor. He is awake and alert in no acute distress. Resting fairly comfortably in bed. Denies any worsening shortness of breath, cough or congestion. He is maintaining O2 saturation in the 90s on 2 L/min per nasal cannula. Chest x-ray does reveal increasing left pleural effusion and a right-sided pleural effusion. Echocardiogram confirms a right-sided pleural effusion measuring 11.9 cm, left- sided pleural effusion at 10.8 cm. The patient is currently on Eliquis this will be placed on hold for possible left-sided thoracentesis tomorrow. Count 9.0. Hemoglobin 7.8. Platelets 140. Sodium 140. Potassium 4.8. Bicarb 28. BUN 87. Creatinine 4.1. Glucose 88. He remains on Lasix 60 mg IV twice a day. Currently net -1.5 L balance The patient is seen today April 05, 2023 in follow-up on the regular medical floor. He is currently sitting up in bed. Awake and alert in no acute distress. He is maintaining O2 saturations in the 90s 2 L/min per nasal cannula. He is been afebrile. Hemodynamically stable. He did undergo a left- sided thoracentesis today with 1.4 L of straw-colored fluid removed. Fluid sent for analysis and cytology. Follow-up chest x-ray reveals a tiny left apical pneumothorax. Sodium 137. Potassium 4.1. Bicarb 31. BUN 97. Creatinine 3.86. Glucose 101. Remains on IV diuretics. Currently in a -2.8 L balance. The patient is seen today April 06, 2023 in follow-up on the regular medical floor. He is awake and alert no acute distress. He is resting comfortably in bed. He is maintaining good O2 saturations in the 90s on 2 L/min per nasal cannula. He remains on IV diuretics. Currently net -2.7 L balance. He is status post left-sided thoracentesis yesterday with 1.4 L of straw-colored fluid removed. Cytology pending. Fluid analysis transudate with a total protein of 2.6 and an LDH of 80. Today's chest x-ray shows small bilateral effusions. No evidence of pneumothorax. Count 8.7. Hemoglobin 7.7. Platelets 139. Sodium 139. Potassium 4.2. Bicarb 29. BUN 91. Creatinine 4.0. The patient is seen today April 07, 2023 in follow-up on the regular medical floor. He is resting comfortably in bed. Awake and alert in no acute distress. Maintaining O2 saturations in the 90s on 2 L/min per nasal cannula. He is con tinued on bronchodilators and oral diuretics. Currently net -1.2 L balance. Follow-up chest x-ray revealed creasing consolidation and pleural effusion on the left. Likely represents a hydropneumothorax of approximately 5 to 10% pneumothorax noted. No significant change. The patient is seen today April 08, 2023 in follow-up on the regular medical floor. He is awake and alert in no acute distress. Maintaining O2 saturations in the 90s on 2 L/min per nasal cannula. Laying in bed. CT scan of the chest revealed moderate-sized bilateral pleural effusions. Left effusion appears loculated and there is additionally a left anterior pneumothorax at approximately 15 to 20%. Consolidation and partial collapse of the left lung. Atelectasis in the right posterior lung. Pleural fluid cultures revealed no growth, no malignancy. No plans for chest tube placement. Eliquis has been resumed. White count 8.5. Hemoglobin 7.7. Platelets 146. Sodium 139. Potassium 3.9. Bicarb 29. BUN 96. Creatinine 3.9. The patient is seen today April 09, 2023 in follow-up on the regular medical floor. He is resting comfortably in bed. Awake and alert in no acute distress. Maintaining O2 saturations in the 90s on 2 L/min per nasal cannula. He denies any worsening shortness of breath, cough or congestion. No new labs today. No chest x-ray today. He is anticoagulated with Eliquis. The patient is seen today April 10, 2023 in follow-up on the regular medical floor. He is awake and alert in no acute distress. Resting fairly comfortably in bed. Today's chest x-ray shows reaccumulation of fluid in the left chest. He is currently on DuoNeb inhalation, Pulmicort inhalations. Remains on oral diuretics. No new labs today. Pleural fluid cultures revealed no growth. He is anticoagulated with Eliquis. The patient is seen today April 11, 2023 in follow-up on the regular medical floor. He is sitting up in bed. Awake and alert in no acute distress. Maintaining O2 saturations in the 90s on 2 L/min per nasal cannula. Sodium 134. Potassium 4.5. Bicarb 30. BUN 130. Creatinine 3.55. Glucose 88. Ultrasound of the chest did reveal a significant left-sided pleural effusion. He under went a second thoracentesis today with 1.2 L of dark yellow fluid removed. Unfortunately, follow-up chest x-ray does reveal a moderate to large left pneumothorax. The patient remains asymptomatic. Repeat chest x-ray pending. He remains on bronchodilators. Remains on oral diuretics. Plan a -1.1 L balance. The patient is seen today April 12, 2023 in follow-up on the regular medical floor. He is awake and alert in no acute distress. Maintaining O2 saturations in the 90s on 2 L/min per nasal cannula. He denies any worsening shortness of breath, cough or congestion. Denies any chest pain. Follow-up chest x-ray continues to show a left apical hydropneumothorax. Slight improvement today compared to yesterday. Pleural fluid cultures revealed no growth. White count 6.5. Hemoglobin 7.6. Platelets 186. Stool for occult blood was positive. He is continued on bronchodilators. Continued on diuretics. Currently in a -700 mL balance. On today's evaluation of 04/13/2023, the patient is being seen for a follow-up. Noted the patient has an acute hypoxic respiratory failure due to CHF and bilateral pleural effusion. Noted the patient had a large left-sided pleural effusion and a small right-sided pleural effusion. His proBNP level was elevated. He underwent a left thoracentesis on 04/05/2023 with a total of 1.4 L of fluid removed that was transudative. Subsequent CAT scan of the chest showed a 15 to 20% pneumothorax. Chest x-ray on 04/10/2023 showed significant recommendation of the left-sided pleural effusion and at the same time there was a persistent pneumothorax on the left. The patient underwent another thoracentesis on 04/11/2023 with a total of 1.2 L of fluid was removed. I reviewed the chest x-ray from today and there is a large stable left-sided hydropneumothorax. Based on that, I inserted the Thora vent in this patient and immediately around 600 cc of pleural fluid was drained in addition to air. The follow-up chest x-ray that was done showed decrease in the left-sided pneumothorax and the thoracostomy tube is in place and attached to suction with persistent air leak. The patient remains clinically and hemodynamically stable on 2 L of oxygen by nasal cannula with a pulse ox of 98%. The patient remains on [facility], on p.o. Lasix 40 mg twice a day. The patient is also on metoprolol 12.5 mg p.o. daily. His echocardiogram that was done on 04/02/2023 showed a left-ventricular ejection fraction of around 30 to 35% along with biatrial enlargement and moderate MR and moderate aortic stenosis/severe aortic stenosis. Moderate degree of tricuspid regurgitation was also present. Objective - Vital Signs Vital signs: Vital Signs Temp 97.7 F 04/13/23 07:12 Pulse 64 04/13/23 09:06 Resp 18 04/13/23 07:12 BP 112/58 04/13/23 07:12 Pulse Ox 96 04/13/23 08:58 FiO2 Intake & Output 04/12/23 04/13/23 04/13/23 18:59 06:59 18:59 Intake Total 400 100 Output Total 275 500 Balance 125 -500 100 Weight 126.5 kg 72.9 kg Intake: IV 100 Oral 400 Output: Urine 275 500 Other: Voiding Method Indwelling Catheter Indwelling Catheter Indwelling Catheter # Bowel Movements 1 - Exam GENERAL EXAM: Alert, pleasant 87-year-old male, resting comfortably in bed, on 2 L nasal cannula, in no apparent distress. HEAD: Normocephalic and atraumatic EYES: Normal reaction of pupils, equal size. NOSE: Clear with pink turbinates. THROAT: Mild erythema, no exudates NECK: No masses, no JVD. CHEST: No chest wall deformity. LUNGS: Equal air entry with right basilar inspiratory crackles. Diminished in the left lung base. The patient has a left-sided pleural vegetation to the Pleur-evac with positive air leak. CVS: S1 and S2 normal with no audible murmur, regular rhythm. No extra heart sounds ABDOMEN: No hepatosplenomegaly, active bowel sounds, no guarding or rigidity. SPINE: No scoliosis or deformity SKIN: No rashes CENTRAL NERVOUS SYSTEM: No focal deficits, tone is normal in all 4 extremities. EXTREMITIES: There is moderate bilateral lower extremity nonpitting edema. No clubbing, or cyanosis. Peripheral pulses are intact. - Labs CBC & Chem 7: 04/12/23 06:12 04/13/23 05:27 Labs: Abnormal Lab Results - Last 24 Hours (Table) 04/12/23 04/13/23 Range/Units 06:12 05:27 Chloride 93 L 92 L (96-109) mmol/L Anion Gap 15.90 H 13.20 H (4.00-12.00) mmol/L BUN 122.0 A* 131.0 A* (9.0-27.0) mg/dL Creatinine 3.9 H 4.2 H (0.6-1.5) mg/dL Est GFR (CKD-EPI) 14 L 13 L (>=60) BUN/Creatinine Ratio 31.28 H (12.00-20.00) Ratio AST 58 H (14-35) U/L ALT 80 H (10-49) U/L Alkaline Phosphatase 143 H (41-126) U/L Total Protein 5.8 L (6.2-8.2) g/dL Albumin 3.2 L (3.8-4.9) g/dL Albumin/Globulin Ratio 1.23 L (1.60-3.17) Ratio Assessment and Plan Plan: Acute hypoxemic respiratory failure, secondary to acute systolic CHF exacerbation and fluid overload. Chest x-ray shows cardiomegaly, pulmonary vascular congestion, and interstitial edema. Patient also has moderate to large left-sided pleural effusion and a small right pleural effusion. NT proBNP was elevated at 57,800. Status post left-sided thoracentesis April 05, 2023 with 1.4 L of straw-colored fluid removed. Fluid analysis transudate, cytology for malignancy. CT scan of the chest and follow-up chest x-ray reveals stable hydropneumothorax of approximately 15 to 20%. Chest x-ray today April 10, 2023 shows significant reaccumulation of fluid in the left chest. Ultrasound reveals a recurrent left pleural effusion measuring 10.4 cm. A second thoracentesis was performed April 11, 2023 with 1.2 L of fluid removed. Moderate left-sided pneumothorax post procedure,, and the patient is status post Thora vent insertion with partial reexpansion of the left lung and there is some residual pneumothorax. There is positive air leak at this point in time. Systolic heart failure with ejection fraction of 30 to 35% Moderate to severe aortic stenosis Moderate mitral regurgitation Acute on chronic kidney disease, creatinine is stable at 4.2 Severe hyperkalemia, improved Lactic acidosis, improved Chronic obstructive pulmonary disease, stable History of paroxysmal atrial fibrillation, currently on no anticoagulants Benign prostatic hyperplasia Anemia of chronic disease, patient reportedly received 1 unit PRBC at [facility], current hemoglobin is stable at 7.6 Plan: A Thora vent was inserted and the patient continues to have persistent air leak Patient is currently on 2 L of O2 nasal cannula Will do daily chest x-rays Monitor renal function Continue Lasix 40 mg p.o. twice a day Continue rest of the medications Continue oral diuretics We will continue to follow
--- NOTE | 2023-04-13 15:26 | P.PCN ---
Date of Procedure: 04/13/23 Preoperative Diagnosis: Left-sided hydropneumothorax Postoperative Diagnosis: Same Procedure(s) Performed: Insertion of a Thora vent Anesthesia: local Surgeon: Jeremy Gusman Estimated Blood Loss (ml): 0 Pathology: none sent Condition: stable Disposition: floor Operative Findings: This procedure was done at the bedside. A timeout was obtained. The consent was obtained. The skin between the second and the third intercostal space on the left, around 1 cm lateral to the sternum was palpated. The skin was infiltrated with 1% lidocaine. Following that, a scalpel was used to make a small incision in the involved area. I was able to insert a #13 Thora vent over a trocar into the left hemithorax. The trocar was removed. There was positive air leak and fluid output after establishing the Thora vent to the Pleur-evac. No complications. No issues with pain. No hemodynamic instability. No bleeding. The chest x-ray shows adequate positioning of the tube. Will maintain suctioning as the patient is positive air leak. Follow-up chest x-ray shows some partial reexpansion of the left lung. Will continue doing daily chest x-rays. Will continue to follow.
--- NOTE | 2023-04-13 21:18 | P.PN ---
Subjective Progress Note Date: 04/10/23 Patient is a 87-year-old white male with past medical history significant for chronic kidney disease, congestive heart failure, atrial fibrillation anticoagulated on Eliquis, hyperlipidemia, COPD, and BPH, who was transferred from [facility] for severe hyperkalemia and acute kidney injury. Filiberto gomes has been complaining of shortness of breath and weakness for a few days. Patient also complaining of sore throat. Patient weakness and shortness of breath progressed so he eventually presented to [facility] where he was evaluated, patient was found to have elevated potassium levels of 8.4, patient was given hyperkalemia protocol and received sodium bicarb, Lokelma, insulin and dextrose. Chest x-ray done showed large left pleural effusion small right pleural effusion, patient was transferred to [facility]. Patient has been complaining of shortness of breath on exertion and rest. Denies any chest pain. There is complaint of swelling of lower extremities. Patient complaining of nonproductive cough. Denies any fevers or chills Patient admitted to internal medicine service 04/03. Patient seen and examined. 2D echo done showed LVEF of 35% with global hypokinesis, severe biatrial enlargement, moderate mitral regurg, severe aortic stenosis. 04/04. Patient seen and examined. States breathing is improving, still gets short of breath on exertion. 04/05. Patient seen and examined. Patient being planned for thoracentesis this morning with pulmonary medicine. States breathing is improved. Denies any nausea or vomiting 04/06. Patient seen and examined. States breathing has improved, feels much better after thoracentesis yesterday. Labs done this morning showed WBC 8.7, hemoglobin 7.7, platelet count 139, sodium 139, potassium 4.2, BUN 90, creatinine 4 04/07/2023 Patient is currently sitting up in the chair. Awake alert and oriented 3. Currently on 2 L oxygen via nasal cannula. Patient is being cannula on by mouth twice a day. Also on DuoNeb's and Pulmicort inhalation. No comments of nausea or vomiting. Tolerating oral diet. No bowel movement today. Laboratory data showed sodium 138 potassium 4.0 chloride 95 BUN 91.1 and creatinine 4.0 Patient is being followed by pulmonary and nephrology. Chest x-ray showed increasing consolidation and pleural effusion on the left. Likely represent a hydropneumothorax of approximately 5-10% pneumothorax noted. No significant interval change. 04/08/2023 Patient is currently sitting which it. Awake alert and oriented 3. requiring oxygen at a 2 L via nasal cannula. pleural fluid cultures showed no growth. No plans for chest tube placement. Pulmonary is on board. laboratory data showed sodium 139, potassium 3.9, chloride 95, BUN 96.5 and creatinine 3.1. Nephrology and pulmonology is on board. 04/09/2023 Patient is sitting in the chair. Awake alert and oriented 3. Requiring 2 L oxygen with nasal cannula. Patient does have home oxygen. Patient has been afebrile. Able to tolerate oral diet. Pleural fluid culture is negative. Cytology is negative for malignancy.. Repeat chest x-ray was ordered for tomorrow. No plan for chest tube placement at this time. Pulmonary is on board. No new laboratory data today. 04/10/2023 Patient is awake alert and oriented x 3. No complaints of chest pain. Shortness of breath at baseline. Currently requiring 2 L oxygen via nasal cannula. Repeat chest x-ray this morning showed moderate to large left pleural effusion increasing in size. Stable left pneumothorax measuring approximately 15%. Ultrasound chest was done. Pulmonary is on board for possible thoracentesis. Otherwise patient has been afebrile. No nausea or vomiting. Tolerating oral diet. Laboratory data showed sodium 135 potassium 4.0 chloride 94 bicarb is 32 BUN 123 and creatinine 3.7 and blood sugar 115 WBC 7.1 hemoglobin 8.2 and platelets 182 REVIEW OF SYSTEMS: CONSTITUTIONAL: No fever, no malaise,. CARDIOVASCULAR: No chest pain, no palpitations, no syncope. PULMONARY: As mentioned above GASTROINTESTINAL: No diarrhea, no nausea, no vomiting, no abdominal pain. NEUROLOGICAL: No headaches, no weakness, PHYSICAL EXAMINATION: GENERAL: The patient is alert and oriented x3, not in any acute distress. Well developed, well nourished. HEENT: Pupils are round and equally reacting to light. EOMI. No scleral icterus. No conjunctival pallor. Normocephalic, atraumatic. No pharyngeal erythema. No thyromegaly. CARDIOVASCULAR: S1 and S2 present. No murmurs, rubs, or gallops. PULMONARY: Coarse breath sound bilaterally, diminished at the bases, crackles audible ABDOMEN: Soft, nontender, nondistended, normoactive bowel sounds. No palpable o rganomegaly. MUSCULOSKELETAL: No joint swelling or deformity. EXTREMITIES: No cyanosis, clubbing, or pedal edema. NEUROLOGICAL: Gross neurological examination did not reveal any focal deficits. SKIN: No rashes. Assessment and plan Hyperkalemia due to acute kidney injury. Improved.. Acute hypoxic respiratory failure due to acute CHF and fluid overload. Status post left thoracentesis on 04/05/2023. Transudate. Fluid cytopathology is negative for malignancy.. Repeat chest x-ray today showed moderate to large left pleural effusion stable hydropneumothorax approximately 5-10%. Acute on chronic kidney disease. Ejection fraction 35% with global hypokinesis, severe bilateral enlargement, moderate MR and severe aortic stenosis. Acute on chronic systolic CHF History paroxysmal A-fib on anticoagulation with liquids. COPD Lactic acidosis Bilateral pleural effusion aortic stenosis BPH Monitor vital signs Monitor CBC Monitor CMP Continue telemetry monitoring 2D echo done showed LVEF of 35% with global hypokinesis, severe biatrial enlargement, moderate mitral regurg, severe aortic stenosis. Avoid nephrotoxic agents Continue breathing treatment Consent with by mouth Lasix 40 minutes by mouth twice a day. Status post left-sided thoracentesis with removal of 1.4 L of fluid on 2023. Cytology is negative for malignancy.. Cultures negative. No plans for chest tube placement. Repeat chest x-ray reviewed report as above.. Pulmonary is planning for another thoracentesis. Nephrology is on board. Labs and medication were reviewed.. Monitor labs and vitals. DVT and GI prophy laxis. Dictation was produced using Vi[employer] dictation software. please excuse any grammatical, word or spelling errors. Objective - Vital Signs Vital signs: Vital Signs Temp 97.5 F L 04/10/23 18:49 Pulse 72 04/10/23 20:02 Resp 15 04/10/23 18:49 BP 121/58 04/10/23 18:49 Pulse Ox 99 04/10/23 18:49 FiO2 Intake & Output 04/10/23 04/10/23 04/11/23 06:59 18:59 06:59 Output Total 500 400 Balance -500 -400 Weight 72.2 kg Output: Urine 500 400 Straight 500 400 Other: Voiding Method Urinal Urinal Urinal # Bowel Movements 1 1 - Labs CBC & Chem 7: 02/25/24 06:12 04/13/23 05:27 Labs: Abnormal Lab Results - Last 24 Hours (Table) 04/10/23 04/10/23 Range/Units 12:44 12:44 RBC 2.65 L (4.30-5.90) m/uL Hgb 8.2 L (13.0-17.5) gm/dL Hct 27.0 L (39.0-53.0) % MCV 101.7 H (80.0-100.0) fL MCHC 30.6 L (31.0-37.0) g/dL RDW 16.7 H (11.5-15.5) % Sodium 135 L (137-145) mmol/L Chloride 94 L (98-107) mmol/L Carbon Dioxide 32 H (22-30) mmol/L BUN 123 H* (9-20) mg/dL Creatinine 3.70 H (0.66-1.25) mg/dL Glucose 115 H (74-99) mg/dL Microbiology - Last 24 Hours (Table) 04/05/23 10:00 Gram Stain - Final Pleural Fluid Body Fluid Culture - Final
[2023-04-13] MEDS: LACTULOSE 20 GM/30 ML CUP PO SCH (21:53)
[2023-04-14 08:46] LABS: Magnesium 2.1 mg/dL (1.5-2.4)
[2023-04-14 09:08] LABS: Calcium 8.9 mg/dL (8.7-10.3); Carbon Dioxide 26.9 mmol/L (21.6-31.8); Chloride 93 mmol/L (96-109); Glucose 101 mg/dL (70-110); Potassium 5.2 mmol/L (3.5-5.5); Sodium 135 mmol/L (135-145)
[2023-04-14] MEDS: PEG 3350 (420 GM/BTL) + LYTES 4,000 ML BOTTLE PO ONE (11:06)
--- NOTE | 2023-04-14 11:27 | P.PN ---
Subjective Patient is seen in follow-up for acute kidney injury on chronic kidney disease. Renal function stable. On po Lasix. Nonoliguric. On nasal cannula. Denies chest pain or shortness of breath. Denies any active bleeding. Vital signs are stable. General: No acute distress. HEENT: Head exam is unremarkable. LUNGS: No acute distress. HEART: Rate and Rhythm are regular. ABDOMEN: Nontender. EXTREMITITES: No edema. Objective - Vital Signs Vital signs: Vital Signs Temp 98.0 F 04/14/23 07:05 Pulse 72 04/14/23 09:34 Resp 17 04/14/23 07:05 BP 109/54 04/14/23 07:05 Pulse Ox 94 L 04/14/23 09:23 FiO2 Intake & Output 04/13/23 04/14/23 04/14/23 18:59 06:59 18:59 Intake Total 100 Output Total 1535 450 Balance -1435 -450 Weight 72.9 kg 72.6 kg Intake: IV 100 Output: Chest Tube Drainage 1260 Thora-Vent Left Anterior 1260 Chest Urine 275 450 Other: Voiding Method Indwelling Catheter Indwelling Catheter # Bowel Movements 1 - Labs CBC & Chem 7: 04/12/23 06:12 04/14/23 06:07 Labs: Abnormal Lab Results - Last 24 Hours (Table) 04/11/23 04/14/23 Range/Units 06:35 06:07 Chloride 93 L (96-109) mmol/L Anion Gap 15.10 H (4.00-12.00) mmol/L BUN 124.0 A* (9.0-27.0) mg/dL Creatinine 4.1 H (0.6-1.5) mg/dL Est GFR (CKD-EPI) 13 L (>=60) RBC Folate 1,260 H (280 - 791) ng/mL Microbiology - Last 24 Hours (Table) 04/05/23 10:00 Fungal Culture - Preliminary Pleural Fluid 04/05/23 10:00 Acid Fast Bacilli Smear - Preliminary Pleural Fluid Acid Fast Bacilli Culture - Preliminary Assessment and Plan Plan: Assessment: 1. Acute kidney injury secondary to ATN secondary to cardiorenal syndrome, anemia and urinary retention. Creatinine stable at 4.1 today. No hydronephrosis noted on kidney ultrasound. Elevated BUN due to acute kidney injury and also GI bleed. 2. Chronic kidney disease stage IV with baseline creatinine near 3 secondary to nephrosclerosis and obstructive uropathy. 3. Hyperkalemia secondary to acute kidney injury, acidosis and urinary retention. Improved with medical management. 4. Volume overload with pleural effusions. Improved with diuresis. 5. Acute blood loss anemia status post blood transfusion this admission. EGD done this admission showed acute on chronic gastritis with bleeding. Colonoscopy later this week. On Aranesp. 6. Acute on chronic systolic CHF ejection fraction of 30 to 35% with moderate mitral and tricuspid regurgitation. 7. Metabolic acidosis secondary to acute kidney injury s/p bicarb drip. 8. Urinary retention status post Riley catheter placement. On Flomax. Plan: Maintain oral Lasix. Avoid nephrotoxins. Continue to monitor renal function and urine output. Continue to assess daily for need for renal replacement therapy. No urgency at this time.
--- NOTE | 2023-04-14 11:40 | P.PN ---
Subjective HISTORY OF PRESENT ILLNESS: This is an 87-year-old male patient of Dr. Rhodes with past medical history of permanent atrial fibrillation, hypertension, dyslipidemia, chronic systolic heart failure, valvular heart disease, chronic kidney disease, chronic anemia. We have been asked to evaluate the patient for CHF. Patient states he has had sudden onset of shortness of breath since Thursday slowly worsening. He states he is taking all of his medications as directed. He is seen today in the emergency center waiting for bed on the cardiac stepdown unit. He states he continues to have some shortness of breath and dry mouth. Patient has has had multiple medication administrations for hyperkalemia managed by nephrology. He is status post IV Lasix 60 mg times once followed by 40 mg times once. Pulmonary medicine following and planning for possible thoracentesis. EKG atrial fibrillation with left bundle branch block Chest x-ray: Cardiomegaly, pulmonary vascular congestion, diffuse interstitial opacities concerning for pulmonary edema. Small right and moderate left lateral effusion. Left basilar airspace disease atelectasis or pneumonia. Chest ultrasound revealed left pleural effusion 8.3 cm pocket. WBC 8.4, hemoglobin 10.7, platelet count 121. INR 1.2. Sodium 138. Initial potassium 8.4 followed by 5.6 and 6.2. BUN 89 creatinine 3.67. Blood sugar 121. Initial lactic acid 3.8 followed by 1.6. Troponin negative x 1. proBNP 57,800. Liver function test within normal limits. Magnesium 2.3. Urinalysis negative for infection. Group A strep not detected. Home cardiac medications: Amlodipine 5 mg daily, Eliquis 2.5 mg twice daily, Lasix 20 mg daily, hydralazine 25 mg twice daily, lovastatin 20 mg at bedtime. Echocardiogram performed on 08/29/2022 revealed EF of 45%, mild to moderate mitral regurgitation. 04/03 Patient is seen today in follow-up and remains in the ER waiting for a bed on the cardiac stepdown unit. Repeat blood work reveals potassium of 5.6, BUN 87 creatinine 3.73. Patient is followed by nephrology. Echocardiogram reveals EF of 30 to 35%, severe biatrial enlargement, moderate mitral rotation. Decreased aortic valve leaflet excursion likely moderate aortic stenosis. Moderate tricuspid regurgitation. Pleural effusion noted. 04/04/2023 Patient examined this morning at the bedside. Patient denies any chest pain or pressure. He denies shortness of breath. He remains on IV Lasix twice a day. No plans for thoracentesis per pulmonary medicine. Patient has been resumed on Eliquis. Vital signs are stable. Blood pressure 114/57. 04/05/2023 Patient examined this morning at the bedside. Patient does report feeling somewhat more short of breath today in comparison to yesterday. He denies any chest pain or pressure. He remains on IV diuretics. Patient's Eliquis has been placed on hold. Plan is for possible thoracentesis today with pulmonary medicine 04/06 Yesterday, patient underwent thoracentesis with removal of [address] Reddy. Cytology is pending. Chest x-ray showed a significant improvement yesterday but it appears that the pleural effusion is returning. Patient denies having any chest pain now. He states he has chronic shortness of breath on and off for a long period of time. He does feel a lot better since yesterday's thoracentesis. He continues to have cough decreasing wheezing. Blood pressure 117/52, heart rate 72, pulse ox 96% on 2 L nasal cannula. Repeat blood work reveals hemoglobin of 7.7, sodium 139, potassium 4.2, BUN 90 and creatinine 4. Patient is also followed by nephrology for acute kidney injury. Patient has been maintained on IV Lasix 60 mg twice daily. Patient had a negative fluid balance yesterday and today and -2750. Weight is trending down. 04/07 Patient states he has more shortness of breath from yesterday and had trouble all through the night with his breathing. Pulse ox is 96% on 2 L, blood pressure 127/70, heart rate 71. Patient has a documented negative fluid balance yesterday of 2750. Weight is trending down. No repeat blood work is available at the time of this dictation. Patient has been on IV Lasix changed over to oral Lasix by nephrology yesterday. Patient states that he was told yesterday that he will not have any further thoracentesis. We will plan to confirm this with pulmonary medicine. 04/08 Patient states that his breathing is better today. He still has lower extremity edema but improving. He is currently maintained on oral Lasix 40 mg twice daily per nephrology. Patient had 2 runs of nonsustained ventricular tachycardia at 7 and 8 beats. Patient was asymptomatic. Blood pressure 115/66, heart rate in the 60s, pulse ox 94% on [address] of the chest performed yesterday revealed moderate size bilateral pleural effusions left appears somewhat loculated. Left anterior pneumothorax 15 to 20%. Consolidation and partial collapse of the left lung. Opacity in the posterior right lung likely atelectasis with superimposed infection unable to be excluded. Stable mediastinal nodes. Mild cardiomegaly. Severe coronary artery calcification and/or stents. Small pericardial effusion. Severe atherosclerotic calcifications of the aorta and branches. Enlarged pulmonary trunk can be seen in pulmonary hypertension. Repeat chest x-ray this morning reveals stable small moderate size pleural effusion. Stable left-sided hydropneumothorax. Repeat blood work reveals hemoglobin of 7.7. Potassium 3.9, BUN 96 and creatinine 3.9. 04/09 And has been resumed on Eliquis starting yesterday. He denies having any chest pain. He states he is eating and drinking okay. He has a Riley catheter in place. Yesterday patient was started on metoprolol due to nonsustained ventricular tachycardia. His heart rate has been mostly in the 50s nursing concerned that he did drop to the 40s during the night. Blood pressure 109/61, pulse ox 99% on 3 L nasal cannula. Currently heart rate is in the range of 58- 68. He has had no further episodes of ventricular tachycardia. No repeat blood work available today. 04/13/2023 Cardiology has been reconsulted for cardiac risk assessment. Patient developed worsening anemia. His anticoagulation was placed on hold. He underwent EGD this morning revealing erosive esophagitis, no active duodenitis, and active gastritis with bleeding. Colonoscopy was recommended and is scheduled for 04/15/2023. Patient evaluated at the bedside. Patient's family is present. Patient denies any chest pain or pressure. He denies any shortness of breath. He is status post Thora vent placement today by pulmonary services. Hemoglobin today 8.6. Patient denies having any bright red blood or dark tarry stools. 04/14/2023 Patient examined this morning at the bedside. Patient denies chest pain or pressure. He denies shortness of breath. He remains on clear liquid diet. He is scheduled for colonoscopy tomorrow with general surgery. PHYSICAL EXAM: VITAL SIGNS: Reviewed. GENERAL: Well-developed in no acute distress. NECK: Supple. No JVD or thyromegaly LUNGS: Respirations even and unlabored. Lungs diminished. HEART: Irregular rate and rhythm. S1 and S2 heard. Systolic murmur noted. EXTREMITIES: Normal range of motion. No clubbing or cyanosis. Peripheral pulses intact. Trace lower extremity edema ASSESSMENT: Acute on chronic systolic heart failure Pleural effusion status post left-sided thoracentesis 04/05/2023 and 04/11/2023 Left-sided pneumothorax, status post Thora vent placement Acute kidney injury and chronic kidney disease Severe hyperkalemia Permanent atrial fibrillation on Eliquis Hypertension Dyslipidemia Valvular heart disease with moderate MR, moderate TR, and moderate to severe aortic stenosis Nonsustained ventricular tachycardia Acute on chronic anemia, status post EGD PLAN: Continue current cardiac medications Eliquis remains on hold. Patient is s/p EGD. Colonoscopy scheduled for 04/15/2023 Recommend bowel prep with 2L prep instead of 4L Patient is at increased risk of procedural complications due to comorbidities but there are no absolute contraindications for patient to proceed from a cardiac standpoint Further recommendations pending patient course Nurse practitioner note has been reviewed by physician. Signing provider agrees with the documented findings, assessment, and plan of care documented by [employer] as a scribe. Objective - Vital Signs Vital signs: Vital Signs Temp 98.0 F 04/14/23 07:05 Pulse 72 04/14/23 09:34 Resp 17 04/14/23 07:05 BP 109/54 04/14/23 07:05 Pulse Ox 94 L 04/14/23 09:23 FiO2 Intake & Output 04/13/23 04/14/23 04/14/23 18:59 06:59 18:59 Intake Total 100 Output Total 1535 450 Balance -1435 -450 Weight 72.9 kg 72.6 kg Intake: IV 100 Output: Chest Tube Drainage 1260 Thora-Vent Left Anterior 1260 Chest Urine 275 450 Other: Voiding Method Indwelling Catheter Indwelling Catheter # Bowel Movements 1 - Labs CBC & Chem 7: 04/12/23 06:12 04/14/23 06:07 Labs: Abnormal Lab Results - Last 24 Hours (Table) 04/11/23 04/14/23 Range/Units 06:35 06:07 Chloride 93 L (96-109) mmol/L Anion Gap 15.10 H (4.00-12.00) mmol/L BUN 124.0 A* (9.0-27.0) mg/dL Creatinine 4.1 H (0.6-1.5) mg/dL Est GFR (CKD-EPI) 13 L (>=60) RBC Folate 1,260 H (280 - 791) ng/mL Microbiology - Last 24 Hours (Table) 04/05/23 10:00 Fungal Culture - Preliminary Pleural Fluid 04/05/23 10:00 Acid Fast Bacilli Smear - Preliminary Pleural Fluid Acid Fast Bacilli Culture - Preliminary
--- NOTE | 2023-04-14 13:48 | P.PN ---
Subjective Progress Note Date: 04/14/23 CHIEF COMPLAINT: Anemia HISTORY OF PRESENT ILLNESS: Patient presented with anemia and GI bleed. Status post EGD revealing erosive esophagitis and acute gastritis with bleeding. Patient had a left pneumothorax yesterday and had a Thora vent placed. He is currently requiring 2 L of oxygen. Patient denies any abdominal pain. Denies any nausea or vomiting. No active signs of bleeding at this time. Dysphagia patient does report having difficulty with swallowing liquids PHYSICAL EXAM: VITAL SIGNS: Reviewed GENERAL: Well-developed in no acute distress. HEENT: No sclera icterus. Extraocular movements grossly intact. Moist buccal mucosa. Head is atraumatic, normocephalic. Hears conversational speech. No nasal drainage. NECK: Supple without lymphadenopathy. CHEST: Non-labored respirations and equal bilateral excursions. CARDIOVASCULAR: Palpable 2+ radial pulses. ABDOMEN: Soft. Nondistended. Nontender. MUSCULOSKELETAL: No clubbing or cyanosis. NEUROLOGIC: No focal or lateralizing signs. Cranial nerves II through XII grossly intact. PSYCH: Appropriate affect. Alert and oriented to person, place and time. SKIN: Well perfused. Good skin turgor. ASSESSMENT: 1. Anemia status post EGD with acute gastritis with bleeding and erosive esophagitis 2. Left pneumothorax status post left-sided Thora vent 3. History of left pleural effusion status post left-sided thoracentesis 4. Acute on chronic kidney disease 5. Atrial fibrillation 6. Severe aortic stenosis 7. Dysphagia PLAN: -Colonoscopy for tomorrow will be cancelled due to patient's left pneumothorax -Continue to monitor hemoglobin -Continue to monitor for any signs or symptoms of bleeding -Continue IV Protonix -Continue to hold Eliquis -Repeat CBC in a.m. -Resume dysphagia ground diet -Patient will be rescheduled next week for EGD with dilation and colonoscopy Physician Bearing Grinder note has been reviewed by physician. Signing provider agrees with the documented findings, assessment, and plan of care. CHIEF COMPLAINT: GI bleed HISTORY OF PRESENT ILLNESS: The patient is a 87 year old male with anemia including declining hemoglobin. He has acute on chronic renal failure. No abdominal pain. He developed acute onset pneumothorax. Patient reports dysphagia. REVIEW OF ORGAN SYSTEMS: No fevers or chills. No nausea or vomiting. No shortness of breath. PHYSICAL EXAM: VITALS: Reviewed CONSTITUTIONAL: Well developed and in no acute distress. EYES: Conjuctivae without sclera icterus. Extraocular movements grossly intact. HEAD, EARS, NOSE, THROAT: Moist buccal mucosa. Head is atraumatic, normocephalic. Hears conversational speech. No nasal drainage. RESPIRATORY: Non-labored respirations and equal bilateral excursions. No gross wheezes. CARDIOVASCULAR: Palpable 2+ radial pulses. ABDOMEN: No abdominal pain. MUSCULOSKELETAL: No clubbing cyanosis or edema SKIN: Warm and well perfused with good skin turgor. NEUROLOGIC: Cranial nerves II through XII grossly intact. No focal or lateralizing signs. PSYCH: Appropriate affect. Alert and oriented to person, place and time. CLINCAL LABS: Reviewed. ASSESSMENT: 1. Anemia 2. GI bleed 3. Acute on chronic kidney failure 4. Atrial fibrillation 5. Ischemic cardiomyopathy 6. Chronic obstructive pulmonary disease 7. Pneumothorax 8. Dysphagia PLAN: 1. Due to new pneumothorax, colonoscopy on hold. 2. Will await pulmonary clearance. 3. Hold blood thinners due to anemia 4. Management of renal failure per nephrology 5. May need upper endoscopy for dysphagia Objective - Vital Signs Vital signs: Vital Signs Temp 98.0 F 04/14/23 07:05 Pulse 72 04/14/23 09:34 Resp 17 04/14/23 07:05 BP 109/54 04/14/23 07:05 Pulse Ox 94 L 04/14/23 09:23 FiO2 Intake & Output 04/13/23 04/14/23 04/14/23 18:59 06:59 18:59 Intake Total 100 Output Total 1535 450 Balance -1435 -450 Weight 72.9 kg 72.6 kg Intake: IV 100 Output: Chest Tube Drainage 1260 Thora-Vent Left Anterior 1260 Chest Urine 275 450 Other: Voiding Method Indwelling Catheter Indwelling Catheter # Bowel Movements 1 4 - Labs CBC & Chem 7: 04/27/23 05:45 04/27/23 05:45 Labs: Abnormal Lab Results - Last 24 Hours (Table) 04/14/23 Range/Units 06:07 Chloride 93 L (96-109) mmol/L Anion Gap 15.10 H (4.00-12.00) mmol/L BUN 124.0 A* (9.0-27.0) mg/dL Creatinine 4.1 H (0.6-1.5) mg/dL Est GFR (CKD-EPI) 13 L (>=60) Microbiology - Last 24 Hours (Table) 04/05/23 10:00 Fungal Culture - Preliminary Pleural Fluid 04/05/23 10:00 Acid Fast Bacilli Smear - Preliminary Pleural Fluid Acid Fast Bacilli Culture - Preliminary
--- NOTE | 2023-04-14 14:05 | P.PN ---
Subjective Progress Note Date: 04/14/23 Patient is a 87-year-old white male with past medical history significant for chronic kidney disease, congestive heart failure, atrial fibrillation anticoagulated on Eliquis, hyperlipidemia, COPD, and BPH, who was transferred from [facility] for severe hyperkalemia and acute kidney injury. Filiberto gomes has been complaining of shortness of breath and weakness for a few days. Patient also complaining of sore throat. Patient weakness and shortness of breath progressed so he eventually presented to [facility] where he was evaluated, patient was found to have elevated potassium levels of 8.4, patient was given hyperkalemia protocol and received sodium bicarb, Lokelma, insulin and dextrose. Chest x-ray done showed large left pleural effusion small right pleural effusion, patient was transferred to [facility]. Patient has been complaining of shortness of breath on exertion and rest. Denies any chest pain. There is complaint of swelling of lower extremities. Patient complaining of nonproductive cough. Denies any fevers or chills Patient admitted to internal medicine service 04/03. Patient seen and examined. 2D echo done showed LVEF of 35% with global hypokinesis, severe biatrial enlargement, moderate mitral regurg, severe aortic stenosis. 04/04. Patient seen and examined. States breathing is improving, still gets short of breath on exertion. 04/05. Patient seen and examined. Patient being planned for thoracentesis this morning with pulmonary medicine. States breathing is improved. Denies any nausea or vomiting 04/06. Patient seen and examined. States breathing has improved, feels much better after thoracentesis yesterday. Labs done this morning showed WBC 8.7, hemoglobin 7.7, platelet count 139, sodium 139, potassium 4.2, BUN 90, creatinine 4 04/07/2023 Patient is currently sitting up in the chair. Awake alert and oriented 3. Currently on 2 L oxygen via nasal cannula. Patient is being cannula on by mouth twice a day. Also on DuoNeb's and Pulmicort inhalation. No comments of nausea or vomiting. Tolerating oral diet. No bowel movement today. Laboratory data showed sodium 138 potassium 4.0 chloride 95 BUN 91.1 and creatinine 4.0 Patient is being followed by pulmonary and nephrology. Chest x-ray showed increasing consolidation and pleural effusion on the left. Likely represent a hydropneumothorax of approximately 5-10% pneumothorax noted. No significant interval change. 04/08/2023 Patient is currently sitting which it. Awake alert and oriented 3. requiring oxygen at a 2 L via nasal cannula. pleural fluid cultures showed no growth. No plans for chest tube placement. Pulmonary is on board. laboratory data showed sodium 139, potassium 3.9, chloride 95, BUN 96.5 and creatinine 3.1. Nephrology and pulmonology is on board. 04/09/2023 Patient is sitting in the chair. Awake alert and oriented 3. Requiring 2 L oxygen with nasal cannula. Patient does have home oxygen. Patient has been afebrile. Able to tolerate oral diet. Pleural fluid culture is negative. Cytology is negative for malignancy.. Repeat chest x-ray was ordered for tomorrow. No plan for chest tube placement at this time. Pulmonary is on board. No new laboratory data today. 04/11. Patient seen and examined. Repeat chest x-ray done showed pneumothorax moderate to large left, currently not in respiratory distress. Denies any blood in the stools 04/12. Patient seen and examined. Labs done this morning showed WBC 6.5, hemoglobin 7.6, platelet count 186, sodium 130, potassium 4.8, BUN 122, creatinine 3.9. FOBT was positive, surgery was consulted, they recommended doing EGD which is scheduled for tomorrow morning. N.p.o. at midnight 04/13. Patient seen and examined. Patient went for EGD this morning which show ed Squamocolumnar junction 41 cm from the incisors,Diaphragmatic hiatus at 41 cm,LA grade B erosive esophagitis,Acute gastritis with bleeding. 04/14. Patient seen examined. Patient had left-sided Thora vent placed. Shortness of breath has improved. Denies any nausea or vomiting. REVIEW OF SYSTEMS: CONSTITUTIONAL: No fever, no malaise,. CARDIOVASCULAR: No chest pain, no palpitations, no syncope. PULMONARY: As mentioned above GASTROINTESTINAL: No diarrhea, no nausea, no vomiting, no abdominal pain. NEUROLOGICAL: No headaches, no weakness, PHYSICAL EXAMINATION: GENERAL: The patient is alert and oriented x3, not in any acute distress. Well developed, well nourished. HEENT: Pupils are round and equally reacting to light. EOMI. No scleral icterus. No conjunctival pallor. Normocephalic, atraumatic. No pharyngeal erythema. No thyromegaly. CARDIOVASCULAR: S1 and S2 present. No murmurs, rubs, or gallops. PULMONARY: Coarse breath sound bilaterally, diminished at the bases, crackles audible, left Thora vent seen ABDOMEN: Soft, nontender, nondistended, normoactive bowel sounds. No palpable organomegaly. MUSCULOSKELETAL: No joint swelling or deformity. EXTREMITIES: No cyanosis, clubbing, or pedal edema. NEUROLOGICAL: Gross neurological examination did not reveal any focal deficits. SKIN: No rashes. Assessment and plan Hyperkalemia Acute hypoxic respiratory failure Acute on chronic kidney disease Left-sided pneumothorax Acute on chronic gastritis with bleeding Acute on chronic systolic CHF History paroxysmal A-fib COPD Lactic acidosis Bilateral pleural effusion aortic stenosis Monitor vital signs Monitor CBC Monitor CMP Continue telemetry monitoring 2D echo done showed LVEF of 35% with global hypokinesis, severe biatrial enlargement, moderate mitral regurg, severe aortic stenosis. Avoid nephrotoxic agents Continue breathing treatment Continue Lasix 40 mg twice a day Status post left-sided thoracentesis with removal of 1.4 L of fluid Cytology is negative for malignancy.. Cultures negative. S/p left Thora vent on 04/13 FOBT positive, hold Eliquis, EGD on 04/13 showed Squamocolumnar junction 41 cm from the incisors,Diaphragmatic hiatus at 41 cm,LA grade B erosive esophagitis,Acute gastritis with bleeding. Surgery recommended colonoscopy but it has been postponed because of recent Thora vent placement Nephrology following Cardiology following Pulmonology following Labs and medication were reviewed.. Continue same treatment. Continue with symptomatic treatment. Resume home medication. Monitor labs and vitals. DVT and GI prophylaxis. Further recommendations as per clinical course of the patient Dictation was produced using [employer] dictation software. please excuse any grammatical, word or spelling errors. Objective - Vital Signs Vital signs: Vital Signs Temp 98.0 F 04/14/23 07:05 Pulse 72 04/14/23 09:34 Resp 17 04/14/23 07:05 BP 109/54 04/14/23 07:05 Pulse Ox 94 L 04/14/23 09:23 FiO2 Intake & Output 04/13/23 04/14/23 04/14/23 18:59 06:59 18:59 Intake Total 100 Output Total 1535 450 Balance -1435 -450 Weight 72.9 kg 72.6 kg Intake: IV 100 Output: Chest Tube Drainage 1260 Thora-Vent Left Anterior 1260 Chest Urine 275 450 Other: Voiding Method Indwelling Catheter Indwelling Catheter # Bowel Movements 1 4 - Labs CBC & Chem 7: 04/12/23 06:12 04/14/23 06:07 Labs: Abnormal Lab Results - Last 24 Hours (Table) 04/14/23 Range/Units 06:07 Chloride 93 L (96-109) mmol/L Anion Gap 15.10 H (4.00-12.00) mmol/L BUN 124.0 A* (9.0-27.0) mg/dL Creatinine 4.1 H (0.6-1.5) mg/dL Est GFR (CKD-EPI) 13 L (>=60) Microbiology - Last 24 Hours (Table) 04/05/23 10:00 Fungal Culture - Preliminary Pleural Fluid 04/05/23 10:00 Acid Fast Bacilli Smear - Preliminary Pleural Fluid Acid Fast Bacilli Culture - Preliminary
--- NOTE | 2023-04-14 14:25 | P.PN ---
Subjective Progress Note Date: 04/14/23 I am seeing this patient in consultation today 04/02/2023 for dyspnea and left- sided pleural effusion. He is currently in the emergency room. He was transferred from [facility] late last night for severe hyperkalemia and acute kidney injury. Patient is a 87-year-old white male with past medical history significant for chronic kidney disease, congestive heart failure, atrial fibrillation anticoagulated on Eliquis, hyperlipidemia, COPD, and BPH. Patient is technically a poor historian. Apparently, he is complaining of shortness of breath, weakness and sore throat over the last several days. This progressively worsened, and he went into [facility] to be evaluated. Patient was found to be severely hyperkalemic. He was also found to be anemic and was transfused 1 unit PRBC. He was transferred to [facility]. Patient is currently resting in bed, on 2 L/min nasal cannula, in no acute distress. He is weak and cannot sit up in bed without assistance. Becomes short of breath with any kind of activity. He denies any chest pain, heart palpitations, or syncopal events. He does have bilateral lower extremity swelling. He has an occasional nonproductive cough. Denies any sputum production, fevers. Chest x-ray on arrival shows cardiomegaly, pulmonary vasc ular congestion, and interstitial edema. There is a moderate to large left- sided pleural effusion and small right pleural effusion.. Patient was given 60 mg of IV Lasix. A Riley catheter was inserted, and the patient has approximately 800 mL of concentrated urine. Patient states that earlier in the week he has had troubles urinating. He voids about 2-3 times per day. Endorses dysuria. Denies any hematuria, urinary frequency. Urinalysis on arrival not concerning for UTI. Trace protein. He does have baseline chronic kidney disease. Ultrasound of the abdomen and bladder did not show any hydronephrosis. Potassium level on arrival was elevated at 8.4 and is down to 5 point 3:06 amp sodium bicarb, 10 g Lokelma, 10 units insulin, 2 A D50 W, calcium gluconate, and the above-mentioned Lasix. Nephrology has been consulted. There is D5W with 3 amp sodium bicarb infusing at 50 MLS per hour. BMP on arrival has a sodium 138, testing 8.4, chloride 108, serum bicarb 18, BUN 74, creatinine 3.68, and glucose 85. Lactic acid level was 3.8 on arrival and is down to 1.6. Troponin less th an 0.012. NT proBNP 57,800. ECG shows normal sinus rhythm with chronic left bundle branch block without any obvious hyperkalemic changes. CBC on arrival: WBC count 8.4, hemoglobin 10.7, hematocrit 34, platelets 121. Group A strep negative. No signs of bleeding. Patient has chronic anemia. Patient denies any acute blood loss. No bloody bowel movements, melena, hematemesis. No abdominal pain or diarrhea. Vital signs are stable. The patient is seen today April 03, 2023 in follow-up in the emergency department. He is currently sitting up on the stretcher. Awake and alert in no acute distress. He is breathing a bit easier today compared to yesterday. He states he is about 50% better. He is still somewhat bronchospastic and wheezing. White count 8.6. Hemoglobin 8.1. Platelets 127. Sodium 139. Potassium 5.0. BUN 89. Creatinine 4.02. Glucose 118. He is continued on IV diuretics. Anticoagulated with Eliquis. Continued on bronchodilators. Currently in a -1.2 L balance. Making good urine. The patient is seen today April 04, 2023 in follow-up on the regular medical floor. He is awake and alert in no acute distress. Resting fairly comfortably in bed. Denies any worsening shortness of breath, cough or congestion. He is maintaining O2 saturation in the 90s on 2 L/min per nasal cannula. Chest x-ray does reveal increasing left pleural effusion and a right-sided pleural effusion. Echocardiogram confirms a right-sided pleural effusion measuring 11.9 cm, left- sided pleural effusion at 10.8 cm. The patient is currently on Eliquis this will be placed on hold for possible left-sided thoracentesis tomorrow. Count 9.0. Hemoglobin 7.8. Platelets 140. Sodium 140. Potassium 4.8. Bicarb 28. BUN 87. Creatinine 4.1. Glucose 88. He remains on Lasix 60 mg IV twice a day. Currently net -1.5 L balance The patient is seen today April 05, 2023 in follow-up on the regular medical floor. He is currently sitting up in bed. Awake and alert in no acute distress. He is maintaining O2 saturations in the 90s 2 L/min per nasal cannula. He is been afebrile. Hemodynamically stable. He did undergo a left- sided thoracentesis today with 1.4 L of straw-colored fluid removed. Fluid sent for analysis and cytology. Follow-up chest x-ray reveals a tiny left apical pneumothorax. Sodium 137. Potassium 4.1. Bicarb 31. BUN 97. Creatinine 3.86. Glucose 101. Remains on IV diuretics. Currently in a -2.8 L balance. The patient is seen today April 06, 2023 in follow-up on the regular medical floor. He is awake and alert no acute distress. He is resting comfortably in bed. He is maintaining good O2 saturations in the 90s on 2 L/min per nasal cannula. He remains on IV diuretics. Currently net -2.7 L balance. He is status post left-sided thoracentesis yesterday with 1.4 L of straw-colored fluid removed. Cytology pending. Fluid analysis transudate with a total protein of 2.6 and an LDH of 80. Today's chest x-ray shows small bilateral effusions. No evidence of pneumothorax. Count 8.7. Hemoglobin 7.7. Platelets 139. Sodium 139. Potassium 4.2. Bicarb 29. BUN 91. Creatinine 4.0. The patient is seen today April 07, 2023 in follow-up on the regular medical floor. He is resting comfortably in bed. Awake and alert in no acute distress. Maintaining O2 saturations in the 90s on 2 L/min per nasal cannula. He is con tinued on bronchodilators and oral diuretics. Currently net -1.2 L balance. Follow-up chest x-ray revealed creasing consolidation and pleural effusion on the left. Likely represents a hydropneumothorax of approximately 5 to 10% pneumothorax noted. No significant change. The patient is seen today April 08, 2023 in follow-up on the regular medical floor. He is awake and alert in no acute distress. Maintaining O2 saturations in the 90s on 2 L/min per nasal cannula. Laying in bed. CT scan of the chest revealed moderate-sized bilateral pleural effusions. Left effusion appears loculated and there is additionally a left anterior pneumothorax at approximately 15 to 20%. Consolidation and partial collapse of the left lung. Atelectasis in the right posterior lung. Pleural fluid cultures revealed no growth, no malignancy. No plans for chest tube placement. Eliquis has been resumed. White count 8.5. Hemoglobin 7.7. Platelets 146. Sodium 139. Potassium 3.9. Bicarb 29. BUN 96. Creatinine 3.9. The patient is seen today April 09, 2023 in follow-up on the regular medical floor. He is resting comfortably in bed. Awake and alert in no acute distress. Maintaining O2 saturations in the 90s on 2 L/min per nasal cannula. He denies any worsening shortness of breath, cough or congestion. No new labs today. No chest x-ray today. He is anticoagulated with Eliquis. The patient is seen today April 10, 2023 in follow-up on the regular medical floor. He is awake and alert in no acute distress. Resting fairly comfortably in bed. Today's chest x-ray shows reaccumulation of fluid in the left chest. He is currently on DuoNeb inhalation, Pulmicort inhalations. Remains on oral diuretics. No new labs today. Pleural fluid cultures revealed no growth. He is anticoagulated with Eliquis. The patient is seen today April 11, 2023 in follow-up on the regular medical floor. He is sitting up in bed. Awake and alert in no acute distress. Maintaining O2 saturations in the 90s on 2 L/min per nasal cannula. Sodium 134. Potassium 4.5. Bicarb 30. BUN 130. Creatinine 3.55. Glucose 88. Ultrasound of the chest did reveal a significant left-sided pleural effusion. He under went a second thoracentesis today with 1.2 L of dark yellow fluid removed. Unfortunately, follow-up chest x-ray does reveal a moderate to large left pneumothorax. The patient remains asymptomatic. Repeat chest x-ray pending. He remains on bronchodilators. Remains on oral diuretics. Plan a -1.1 L balance. The patient is seen today April 12, 2023 in follow-up on the regular medical floor. He is awake and alert in no acute distress. Maintaining O2 saturations in the 90s on 2 L/min per nasal cannula. He denies any worsening shortness of breath, cough or congestion. Denies any chest pain. Follow-up chest x-ray continues to show a left apical hydropneumothorax. Slight improvement today compared to yesterday. Pleural fluid cultures revealed no growth. White count 6.5. Hemoglobin 7.6. Platelets 186. Stool for occult blood was positive. He is continued on bronchodilators. Continued on diuretics. Currently in a -700 mL balance. On today's evaluation of 04/13/2023, the patient is being seen for a follow-up. Noted the patient has an acute hypoxic respiratory failure due to CHF and bilateral pleural effusion. Noted the patient had a large left-sided pleural effusion and a small right-sided pleural effusion. His proBNP level was elevated. He underwent a left thoracentesis on 04/05/2023 with a total of 1.4 L of fluid removed that was transudative. Subsequent CAT scan of the chest showed a 15 to 20% pneumothorax. Chest x-ray on 04/10/2023 showed significant recommendation of the left-sided pleural effusion and at the same time there was a persistent pneumothorax on the left. The patient underwent another thoracentesis on 04/11/2023 with a total of 1.2 L of fluid was removed. I reviewed the chest x-ray from today and there is a large stable left-sided hydropneumothorax. Based on that, I inserted the Thora vent in this patient and immediately around 600 cc of pleural fluid was drained in addition to air. The follow-up chest x-ray that was done showed decrease in the left-sided pneumothorax and the thoracostomy tube is in place and attached to suction with persistent air leak. The patient remains clinically and hemodynamically stable on 2 L of oxygen by nasal cannula with a pulse ox of 98%. The patient remains on [facility], on p.o. Lasix 40 mg twice a day. The patient is also on metoprolol 12.5 mg p.o. daily. His echocardiogram that was done on 04/02/2023 showed a left-ventricular ejection fraction of around 30 to 35% along with biatrial enlargement and moderate MR and moderate aortic stenosis/severe aortic stenosis. Moderate degree of tricuspid regurgitation was also present. On today's evaluation of 04/14/2023, I am seeing the patient for a follow- up.Patient has no specific complaints. The Thora vent is still in place and attached to suction. The total amount of output in terms of fluid from the left lung was in the order of 800 cc from yesterday. There is no persistent air leak. I am ordering a urgent chest x-ray to follow-up on the pneumothorax. Otherwise, the patient has no specific complaints. The patient is still on Lasix 40 mg p.o. twice a day. Rest of the medications are essentially unchan ged. Labs from today shows a sodium level of 135, potassium of 5.2, BUN is 124 with a creatinine of 4.1 and a potassium level is at 5.2. Echocardiogram is showing impaired LV function with an ejection fraction of 35% with moderate MR, severe aortic stenosis and bilateral atrial enlargement. The patient is having some fecal occult blood positive and the patient was taken off anticoagulation for now. EGD EGD that was done on 04/13/2023 showed erosive esophagitis and gastritis. Objective - Vital Signs Vital signs: Vital Signs Temp 98.0 F 04/14/23 07:05 Pulse 72 04/14/23 09:34 Resp 17 04/14/23 07:05 BP 109/54 04/14/23 07:05 Pulse Ox 94 L 04/14/23 09:23 FiO2 Intake & Output 04/13/23 04/14/23 04/14/23 18:59 06:59 18:59 Intake Total 100 Output Total 1535 450 Balance -1435 -450 Weight 72.9 kg 72.6 kg Intake: IV 100 Output: Chest Tube Drainage 1260 Thora-Vent Left Anterior 1260 Chest Urine 275 450 Other: Voiding Method Indwelling Catheter Indwelling Catheter # Bowel Movements 1 - Exam GENERAL EXAM: Alert, pleasant 87-year-old male, resting comfortably in bed, on 2 L nasal cannula, in no apparent distress. HEAD: Normocephalic and atraumatic EYES: Normal reaction of pupils, equal size. NOSE: Clear with pink turbinates. THROAT: Mild erythema, no exudates NECK: No masses, no JVD. CHEST: No chest wall deformity. LUNGS: Equal air entry with right basilar inspiratory crackles. Diminished in the left lung base. The patient has a left-sided pleural vegetation to the Pleur-evac with positive air leak. CVS: S1 and S2 normal with no audible murmur, regular rhythm. No extra heart sounds ABDOMEN: No hepatosplenomegaly, active bowel sounds, no guarding or rigidity. SPINE: No scoliosis or deformity SKIN: No rashes CENTRAL NERVOUS SYSTEM: No focal deficits, tone is normal in all 4 extremities. EXTREMITIES: There is moderate bilateral lower extremity nonpitting edema. No clubbing, or cyanosis. Peripheral pulses are intact. - Labs CBC & Chem 7: 04/12/23 06:12 04/14/23 06:07 Labs: Abnormal Lab Results - Last 24 Hours (Table) 04/14/23 Range/Units 06:07 Chloride 93 L (96-109) mmol/L Anion Gap 15.10 H (4.00-12.00) mmol/L BUN 124.0 A* (9.0-27.0) mg/dL Creatinine 4.1 H (0.6-1.5) mg/dL Est GFR (CKD-EPI) 13 L (>=60) Microbiology - Last 24 Hours (Table) 04/05/23 10:00 Fungal Culture - Preliminary Pleural Fluid 04/05/23 10:00 Acid Fast Bacilli Smear - Preliminary Pleural Fluid Acid Fast Bacilli Culture - Preliminary Assessment and Plan Plan: Acute hypoxemic respiratory failure, secondary to acute systolic CHF exacerbation and fluid overload. Chest x-ray shows cardiomegaly, pulmonary vascular congestion, and interstitial edema. Patient also has moderate to large left-sided pleural effusion and a small right pleural effusion. NT proBNP was elevated at 57,800. Status post left-sided thoracentesis April 05, 2023 with 1.4 L of straw-colored fluid removed. Fluid analysis transudate, cytology for malignancy. CT scan of the chest and follow-up chest x-ray reveals stable hydropneumothorax of approximately 15 to 20%. Chest x-ray today April 10, 2023 shows significant reaccumulation of fluid in the left chest. Ultrasound reveals a recurrent left pleural effusion measuring 10.4 cm. A second thoracentesis was performed April 11, 2023 with 1.2 L of fluid removed. Moderate left-sided pneumothorax post procedure,, and the patient is status post Thora vent insertion with partial reexpansion of the left lung and there is some residual pneumothorax. There is no active air leak at this point in time. Repeat chest x-ray from today is pending. Systolic heart failure with ejection fraction of 30 to 35% Moderate to severe aortic stenosis Moderate mitral regurgitation Acute on chronic kidney disease, creatinine is stable at 4.1 Severe hyperkalemia, improved Lactic acidosis, improved Chronic obstructive pulmonary disease, stable History of paroxysmal atrial fibrillation, currently on no anticoagulants Benign prostatic hyperplasia Anemia of chronic disease, patient reportedly received 1 unit PRBC at [facility], current hemoglobin is stable at 7.6 Erosive esophagitis and gastritis Plan: Clinically stable without any significant respiratory distress Total of 800 cc to 1 L of fluid was removed from the left lung post insertion of a Thora vent Obtain a follow-up chest x-ray today Keep the Thora vent to suction Monitor for any air leak Patient is currently on 2 L of O2 nasal cannula Will do daily chest x-rays Monitor renal function Continue Lasix 40 mg p.o. twice a day Monitor renal function Placed the anticoagulation on hold due to concerns of GI bleed Continue rest of the medications Continue oral diuretics We will continue to follow
--- NOTE | 2023-04-14 16:49 | XR ---
EXAMINATION TYPE: XR chest 1V DATE OF EXAM: 04/14/2023 2:41 PM CLINICAL INDICATION:Male, 87 years old with history of ptx; [facility] COMPARISON: Chest radiographs from 11/12/2023 TECHNIQUE: XR chest 1V Frontal view of the chest. FINDINGS: Lungs/Pleura: There is no evidence of pleural effusion, focal consolidation, or pneumothorax. Pulmonary vascularity: Pulmonary vascular congestion. Heart/mediastinum: Cardiomediastinal silhouette is enlarged and stable. Musculoskeletal: No acute osseous pathology. Left lower rib fracture is unchanged. Other findings: Subcutaneous emphysema scattered along the chest wall. Lines/Tubes: Left thoracotomy tube is present with small pneumothorax. IMPRESSION: Left thoracotomy tube. Small pneumothorax remains present.
[2023-04-15 08:39] LABS: Basophils # (A) 0.02 X 10*3/uL (0.00-0.10); Basophils % (A) 0.2 %; Eosinophils # (A) 0.49 X 10*3/uL (0.04-0.35); Eosinophils % (A) 5.8 %; HCT 22.7 % (39.6-50.0); HGB 7.2 g/dL (13.0-17.0); Lymphocytes # (A) 0.99 X 10*3/uL (0.90-5.00); Lymphocytes % (A) 11.7 %; MCH 30.8 pg (27.0-32.0); MCHC 31.7 g/dL (32.0-37.0); Mean Platelet Volume 12.3 FL (9.5-12.2); Monocytes % (A) 9.5 %; NRBC Per 100 WBC 0 X 10*3/uL (0.00-0.01); Neutrophils % (A) 72.3 %; Platelet Count 213 X 10*3/uL (140-440); RBC 2.34 X 10*6/uL (4.40-5.60); RDW 15.2 % (11.5-14.5); WBC 8.44 X 10*3/uL (4.50-10.00)
--- NOTE | 2023-04-15 08:55 | P.PN ---
Subjective HISTORY OF PRESENT ILLNESS: This is an 87-year-old male patient of Dr. Rhodes with past medical history of permanent atrial fibrillation, hypertension, dyslipidemia, chronic systolic heart failure, valvular heart disease, chronic kidney disease, chronic anemia. We have been asked to evaluate the patient for CHF. Patient states he has had sudden onset of shortness of breath since Thursday slowly worsening. He states he is taking all of his medications as directed. He is seen today in the emergency center waiting for bed on the cardiac stepdown unit. He states he continues to have some shortness of breath and dry mouth. Patient has has had multiple medication administrations for hyperkalemia managed by nephrology. He is status post IV Lasix 60 mg times once followed by 40 mg times once. Pulmonary medicine following and planning for possible thoracentesis. EKG atrial fibrillation with left bundle branch block Chest x-ray: Cardiomegaly, pulmonary vascular congestion, diffuse interstitial opacities concerning for pulmonary edema. Small right and moderate left lateral effusion. Left basilar airspace disease atelectasis or pneumonia. Chest ultrasound revealed left pleural effusion 8.3 cm pocket. WBC 8.4, hemoglobin 10.7, platelet count 121. INR 1.2. Sodium 138. Initial potassium 8.4 followed by 5.6 and 6.2. BUN 89 creatinine 3.67. Blood sugar 121. Initial lactic acid 3.8 followed by 1.6. Troponin negative x 1. proBNP 57,800. Liver function test within normal limits. Magnesium 2.3. Urinalysis negative for infection. Group A strep not detected. Home cardiac medications: Amlodipine 5 mg daily, Eliquis 2.5 mg twice daily, Lasix 20 mg daily, hydralazine 25 mg twice daily, lovastatin 20 mg at bedtime. Echocardiogram performed on 08/29/2022 revealed EF of 45%, mild to moderate mitral regurgitation. 04/03 Patient is seen today in follow-up and remains in the ER waiting for a bed on the cardiac stepdown unit. Repeat blood work reveals potassium of 5.6, BUN 87 creatinine 3.73. Patient is followed by nephrology. Echocardiogram reveals EF of 30 to 35%, severe biatrial enlargement, moderate mitral rotation. Decreased aortic valve leaflet excursion likely moderate aortic stenosis. Moderate tricuspid regurgitation. Pleural effusion noted. 04/04/2023 Patient examined this morning at the bedside. Patient denies any chest pain or pressure. He denies shortness of breath. He remains on IV Lasix twice a day. No plans for thoracentesis per pulmonary medicine. Patient has been resumed on Eliquis. Vital signs are stable. Blood pressure 114/57. 04/05/2023 Patient examined this morning at the bedside. Patient does report feeling somewhat more short of breath today in comparison to yesterday. He denies any chest pain or pressure. He remains on IV diuretics. Patient's Eliquis has been placed on hold. Plan is for possible thoracentesis today with pulmonary medicine 04/06 Yesterday, patient underwent thoracentesis with removal of [address] Reddy. Cytology is pending. Chest x-ray showed a significant improvement yesterday but it appears that the pleural effusion is returning. Patient denies having any chest pain now. He states he has chronic shortness of breath on and off for a long period of time. He does feel a lot better since yesterday's thoracentesis. He continues to have cough decreasing wheezing. Blood pressure 117/52, heart rate 72, pulse ox 96% on 2 L nasal cannula. Repeat blood work reveals hemoglobin of 7.7, sodium 139, potassium 4.2, BUN 90 and creatinine 4. Patient is also followed by nephrology for acute kidney injury. Patient has been maintained on IV Lasix 60 mg twice daily. Patient had a negative fluid balance yesterday and today and -2750. Weight is trending down. 04/07 Patient states he has more shortness of breath from yesterday and had trouble all through the night with his breathing. Pulse ox is 96% on 2 L, blood pressure 127/70, heart rate 71. Patient has a documented negative fluid balance yesterday of 2750. Weight is trending down. No repeat blood work is available at the time of this dictation. Patient has been on IV Lasix changed over to oral Lasix by nephrology yesterday. Patient states that he was told yesterday that he will not have any further thoracentesis. We will plan to confirm this with pulmonary medicine. 04/08 Patient states that his breathing is better today. He still has lower extremity edema but improving. He is currently maintained on oral Lasix 40 mg twice daily per nephrology. Patient had 2 runs of nonsustained ventricular tachycardia at 7 and 8 beats. Patient was asymptomatic. Blood pressure 115/66, heart rate in the 60s, pulse ox 94% on [address] of the chest performed yesterday revealed moderate size bilateral pleural effusions left appears somewhat loculated. Left anterior pneumothorax 15 to 20%. Consolidation and partial collapse of the left lung. Opacity in the posterior right lung likely atelectasis with superimposed infection unable to be excluded. Stable mediastinal nodes. Mild cardiomegaly. Severe coronary artery calcification and/or stents. Small pericardial effusion. Severe atherosclerotic calcifications of the aorta and branches. Enlarged pulmonary trunk can be seen in pulmonary hypertension. Repeat chest x-ray this morning reveals stable small moderate size pleural effusion. Stable left-sided hydropneumothorax. Repeat blood work reveals hemoglobin of 7.7. Potassium 3.9, BUN 96 and creatinine 3.9. 04/09 And has been resumed on Eliquis starting yesterday. He denies having any chest pain. He states he is eating and drinking okay. He has a Riley catheter in place. Yesterday patient was started on metoprolol due to nonsustained ventricular tachycardia. His heart rate has been mostly in the 50s nursing concerned that he did drop to the 40s during the night. Blood pressure 109/61, pulse ox 99% on 3 L nasal cannula. Currently heart rate is in the range of 58- 68. He has had no further episodes of ventricular tachycardia. No repeat blood work available today. 04/13/2023 Cardiology has been reconsulted for cardiac risk assessment. Patient developed worsening anemia. His anticoagulation was placed on hold. He underwent EGD this morning revealing erosive esophagitis, no active duodenitis, and active gastritis with bleeding. Colonoscopy was recommended and is scheduled for 04/15/2023. Patient evaluated at the bedside. Patient's family is present. Patient denies any chest pain or pressure. He denies any shortness of breath. He is status post Thora vent placement today by pulmonary services. Hemoglobin today 8.6. Patient denies having any bright red blood or dark tarry stools. 04/14/2023 Patient examined this morning at the bedside. Patient denies chest pain or pressure. He denies shortness of breath. He remains on clear liquid diet. He is scheduled for colonoscopy tomorrow with general surgery. 04/15/2023 Patient examined this morning at the bedside. Patient denies chest pain or pressure. He denies shortness of breath. Patient was initially scheduled for colonoscopy today with general surgery however this has been canceled secondary to pneumothorax. Patient's Eliquis remains on hold. Hemoglobin 7.2 today. PHYSICAL EXAM: VITAL SIGNS: Reviewed. GENERAL: Well-developed in no acute distress. NECK: Supple. No JVD or thyromegaly LUNGS: Respirations even and unlabored. Lungs diminished. HEART: Irregular rate and rhythm. S1 and S2 heard. Systolic murmur noted. EXTREMITIES: Normal range of motion. No clubbing or cyanosis. Peripheral pulses intact. Trace lower extremity edema ASSESSMENT: Acute on chronic systolic heart failure Pleural effusion status post left-sided thoracentesis 04/05/2023 and 04/11/2023 Left-sided pneumothorax, status post Thora vent placement Acute kidney injury and chronic kidney disease Severe hyperkalemia Permanent atrial fibrillation on Eliquis Hypertension Dyslipidemia Valvular heart disease with moderate MR, moderate TR, and moderate to severe aortic stenosis Nonsustained ventricular tachycardia Acute on chronic anemia, status post EGD PLAN: Continue current cardiac medications Eliquis remains on hold. Patient is s/p EGD. Colonoscopy rescheduled secondary to pneumothorax If plans change and patient is rescheduled for colonoscopy, patient is at increased risk of procedural complications due to comorbidities but there are no absolute contraindications for patient to proceed from a cardiac standpoint We will follow on an as needed basis. Please call with questions or concerns Nurse practitioner note has been reviewed by physician. Signing provider agrees with the documented findings, assessment, and plan of care documented by PEDODONTIST as a scribe. Objective - Vital Signs Vital signs: Vital Signs Temp 98.3 F 04/15/23 07:30 Pulse 76 04/15/23 08:31 Resp 12 04/15/23 07:30 BP 102/46 04/15/23 07:30 Pulse Ox 96 04/15/23 08:23 FiO2 Intake & Output 04/14/23 04/15/23 04/15/23 18:59 06:59 18:59 Output Total 400 350 Balance -400 -350 Weight 72.6 kg 68 kg Output: Urine 400 350 Other: Voiding Method Indwelling Catheter Indwelling Catheter # Bowel Movements 1 - Labs CBC & Chem 7: 04/15/23 05:38 04/15/23 05:38 Labs: Abnormal Lab Results - Last 24 Hours (Table) 04/14/23 04/15/23 Range/Units 06:07 05:38 RBC 2.34 L (4.40-5.60) X 10*6/uL Hgb 7.2 L (13.0-17.0) g/dL Hct 22.7 L (39.6-50.0) % MCHC 31.7 L (32.0-37.0) g/dL RDW 15.2 H (11.5-14.5) % MPV 12.3 H (9.5-12.2) FL Eosinophils # 0.49 H (0.04-0.35) X 10*3/uL Chloride 93 L (96-109) mmol/L Anion Gap 15.10 H (4.00-12.00) mmol/L BUN 124.0 A* (9.0-27.0) mg/dL Creatinine 4.1 H (0.6-1.5) mg/dL Est GFR (CKD-EPI) 13 L (>=60)
[2023-04-15 09:33] LABS: BUN/Creat Ratio 29.77 Ratio (12.00-20.00); Chloride 94 mmol/L (96-109); Glucose 93 mg/dL (70-110); Potassium 5.4 mmol/L (3.5-5.5); Sodium 134 mmol/L (135-145)
[2023-04-15 09:34] LABS: ALT 67 U/L (10-49); AST 43 U/L (14-35); Albumin 3.1 g/dL (3.8-4.9); Albumin/Globulin Ratio 1.15 Ratio (1.60-3.17); Alkaline Phosphatase 136 U/L (41-126); Calcium 9.1 mg/dL (8.7-10.3); Carbon Dioxide 26.7 mmol/L (21.6-31.8); Globulin 2.7 g/dL (1.6-3.3); Total Bilirubin 0.3 mg/dL (0.3-1.2); Total Protein 5.8 g/dL (6.2-8.2)
--- NOTE | 2023-04-15 10:58 | P.PN ---
Subjective Patient is seen in follow-up for acute kidney injury on chronic kidney disease. Renal function slightly worse. On po Lasix. Nonoliguric. On nasal cannula. Denies chest pain or shortness of breath. Denies any active bleeding. Vital signs are stable. General: No acute distress. HEENT: Head exam is unremarkable. LUNGS: No acute distress. HEART: Rate and Rhythm are regular. ABDOMEN: Nontender. EXTREMITITES: No edema. Objective - Vital Signs Vital signs: Vital Signs Temp 98.3 F 04/15/23 07:30 Pulse 76 04/15/23 08:31 Resp 12 04/15/23 07:30 BP 102/46 04/15/23 07:30 Pulse Ox 96 04/15/23 08:23 FiO2 Intake & Output 04/14/23 04/15/23 04/15/23 18:59 06:59 18:59 Output Total 400 350 Balance -400 -350 Weight 72.6 kg 68 kg Output: Urine 400 350 Other: Voiding Method Indwelling Catheter Indwelling Catheter # Bowel Movements 1 - Labs CBC & Chem 7: 04/15/23 05:38 04/15/23 05:38 Labs: Abnormal Lab Results - Last 24 Hours (Table) 04/15/23 04/15/23 Range/Units 05:38 05:38 RBC 2.34 L (4.40-5.60) X 10*6/uL Hgb 7.2 L (13.0-17.0) g/dL Hct 22.7 L (39.6-50.0) % MCHC 31.7 L (32.0-37.0) g/dL RDW 15.2 H (11.5-14.5) % MPV 12.3 H (9.5-12.2) FL Eosinophils # 0.49 H (0.04-0.35) X 10*3/uL Sodium 134 L (135-145) mmol/L Chloride 94 L (96-109) mmol/L Anion Gap 13.30 H (4.00-12.00) mmol/L BUN 131.0 A* (9.0-27.0) mg/dL Creatinine 4.4 H (0.6-1.5) mg/dL Est GFR (CKD-EPI) 12 L (>=60) BUN/Creatinine Ratio 29.77 H (12.00-20.00) Ratio AST 43 H (14-35) U/L ALT 67 H (10-49) U/L Alkaline Phosphatase 136 H (41-126) U/L Total Protein 5.8 L (6.2-8.2) g/dL Albumin 3.1 L (3.8-4.9) g/dL Albumin/Globulin Ratio 1.15 L (1.60-3.17) Ratio Assessment and Plan Plan: Assessment: 1. Acute kidney injury secondary to ATN secondary to cardiorenal syndrome, anemia and urinary retention. Creatinine up to 4.4 today. No hydronephrosis noted on kidney ultrasound. Elevated BUN due to acute kidney injury and also GI bleed. 2. Chronic kidney disease stage IV with baseline creatinine near 3 secondary to nephrosclerosis and obstructive uropathy. 3. Hyperkalemia secondary to acute kidney injury, acidosis and urinary retention. Improved with medical management. 4. Volume overload with pleural effusions. Improved with diuresis. 5. Acute blood loss anemia status post blood transfusion this admission. EGD done this admission showed acute on chronic gastritis with bleeding. Colonoscopy penidng. On Aranesp. 6. Acute on chronic systolic CHF ejection fraction of 30 to 35% with moderate mitral and tricuspid regurgitation. 7. Metabolic acidosis secondary to acute kidney injury s/p bicarb drip. 8. Urinary retention status post Riley catheter placement. On Flomax. Plan: Maintain oral Lasix. Lokelma 10 g once today. Avoid nephrotoxins. Continue to monitor renal function and urine output. Continue to assess daily for need for renal replacement therapy. No urgency at this time. Patient is a poor candidate for renal replacement therapy.
--- NOTE | 2023-04-15 11:16 | XR ---
EXAMINATION TYPE: XR chest 1V DATE OF EXAM: 04/15/2023 10:55 AM CLINICAL INDICATION:Male, 87 years old with history of PTX; [facility] COMPARISON: Chest radiographs from 04/14/2023. TECHNIQUE: XR chest 1V Frontal view of the chest. FINDINGS: Lungs/Pleura: There is no evidence of pleural effusion, focal consolidation, or pneumothorax. Pulmonary vascularity: Unremarkable. Heart/mediastinum: Cardiomediastinal silhouette is unremarkable. Atherosclerotic calcifications are seen in the aorta. Musculoskeletal: No acute osseous pathology. There remains a left rib fracture. Other findings: Subcutaneous emphysema scattered throughout the left lateral chest.. Lines/Tubes: Left thoracotomy tube in place. There is trace pneumothorax remaining. IMPRESSION: Left thoracotomy tube with trace pneumothorax on today's exam.
[2023-04-15] MEDS: SODIUM ZIRCONIUM CYCLOSILICATE 10 GM PACKET PO ONE (11:56)
[2023-04-15] MEDS ORDERED: LACTULOSE 20 GM/30 ML CUP PO PRN (13:37)
--- NOTE | 2023-04-15 13:43 | P.PN ---
Subjective Progress Note Date: 04/15/23 Patient is a 87-year-old white male with past medical history significant for chronic kidney disease, congestive heart failure, atrial fibrillation anticoagulated on Eliquis, hyperlipidemia, COPD, and BPH, who was transferred from [facility] for severe hyperkalemia and acute kidney injury. Patient has been complaining of shortness of breath and weakness for a few days. Patient also complaining of sore throat. Patient weakness and shortness of breath progressed so he eventually presented to [facility] where he was evaluated, patient was found to have elevated potassium levels of 8.4, patient was given hyperkalemia protocol and received sodium bicarb, Lokelma, insulin and dextrose. Chest x-ray done showed large left pleural effusion small right pleural effusion, patient was transferred to [facility]. Patient has been complaining of shortness of breath on exertion and rest. Denies any chest pain. There is complaint of swelling of lower extremities. Patient complaining of nonproductive cough. Denies any fevers or chills Patient admitted to internal medicine service 04/03. Patient seen and examined. 2D echo done showed LVEF of 35% with global hypokinesis, severe biatrial enlargement, moderate mitral regurg, severe aortic stenosis. 04/04. Patient seen and examined. States breathing is improving, still gets short of breath on exertion. 04/05. Patient seen and examined. Patient being planned for thoracentesis this morning with pulmonary medicine. States breathing is improved. Denies any nausea or vomiting 04/06. Patient seen and examined. States breathing has improved, feels much better after thoracentesis yesterday. Labs done this morning showed WBC 8.7, hemoglobin 7.7, platelet count 139, sodium 139, potassium 4.2, BUN 90, creatinine 4 04/07/2023 Patient is currently sitting up in the chair. Awake alert and oriented 3. Currently on 2 L oxygen via nasal cannula. Patient is being cannula on by mouth twice a day. Also on DuoNeb's and Pulmicort inhalation. No comments of nausea or vomiting. Tolerating oral diet. No bowel movement today. Laboratory data showed sodium 138 potassium 4.0 chloride 95 BUN 91.1 and creatinine 4.0 Patient is being followed by pulmonary and nephrology. Chest x-ray showed increasing consolidation and pleural effusion on the left. Likely represent a hydropneumothorax of approximately 5-10% pneumothorax noted. No significant interval change. 04/08/2023 Patient is currently sitting which it. Awake alert and oriented 3. requiring oxygen at a 2 L via nasal cannula. pleural fluid cultures showed no growth. No plans for chest tube placement. Pulmonary is on board. laboratory data showed sodium 139, potassium 3.9, chloride 95, BUN 96.5 and creatinine 3.1. Nephrology and pulmonology is on board. 04/09/2023 Patient is sitting in the chair. Awake alert and oriented 3. Requiring 2 L oxygen with nasal cannula. Patient does have home oxygen. Patient has been afebrile. Able to tolerate oral diet. Pleural fluid culture is negative. Cytology is negative for malignancy.. Repeat chest x-ray was ordered for tomorrow. No plan for chest tube placement at this time. Pulmonary is on board. No new laboratory data today. 04/11. Patient seen and examined. Repeat chest x-ray done showed pneumothorax moderate to large left, currently not in respiratory distress. Denies any blood in the stools 04/12. Patient seen and examined. Labs done this morning showed WBC 6.5, hemoglobin 7.6, platelet count 186, sodium 130, potassium 4.8, BUN 122, creatinine 3.9. FOBT was positive, surgery was consulted, they recommended doing EGD which is scheduled for tomorrow morning. N.p.o. at midnight 04/13. Patient seen and examined. Patient went for EGD this morning which s howed Squamocolumnar junction 41 cm from the incisors,Diaphragmatic hiatus at 41 cm,LA grade B erosive esophagitis,Acute gastritis with bleeding. 04/14. Patient seen examined. Patient had left-sided Thora vent placed. Shortness of breath has improved. Denies any nausea or vomiting. 04/15/2023 Patient is seen and evaluated in follow-up this morning continues on 3 L via nasal cannula currently weaning FiO2 as tolerated. Patient being followed by pulmonary recommending follow-up chest x-ray to monitor left-sided pneumothorax. Patient continues with left Thora vent and pulmonary discussing possibly removing the chest tube. Patient also being followed by cardiology as well as nephrology with CHF exacerbation along with acute on chronic kidney disease exacerbation. Patient has had prolonged hospitalization and generalized weakness and patient reports will be returning home and has support at the home and will continue with rehab in the outpatient setting. Patient is adamant he is going home once discharged. Hemoglobin is stable above 7 at 7.2 today white count remains normal, sodium is 134 with a potassium of 5.4, BUN is 131 and creatinine is 4.4, LFTs slightly trending down and C. difficile testing from yesterday was negative. Patient continues on oral Lasix. Potassium slightly elevated today and was given a dose of Lokelma. Will follow-up on repeat labs. Patient was continued on scheduled lactulose per surgery recommendations and will make as needed as patient is reporting having loose stools. REVIEW OF SYSTEMS: CONSTITUTIONAL: No fever, no malaise,. CARDIOVASCULAR: No chest pain, no palpitations, no syncope. PULMONARY: As mentioned above GASTROINTESTINAL: Reports of diarrhea, no nausea, no vomiting, no abdominal pain. NEUROLOGICAL: No headaches, no weakness, PHYSICAL EXAMINATION: GENERAL: The patient is alert and oriented x3, not in any acute distress. Well developed, well nourished. Elderly appearing, ill-appearing, thin built HEENT: Pupils are round and equally reacting to light. EOMI. No scleral icterus. No conjunctival pallor. Normocephalic, atraumatic. No pharyngeal erythema. No thyromegaly. CARDIOVASCULAR: S1 and S2 muffled PULMONARY: Coarse breath sound bilaterally, diminished at the bases, crackles audible, left Thora vent seen ABDOMEN: Soft, nontender, nondistended, normoactive bowel sounds. No palpable organomegaly. MUSCULOSKELETAL: No joint swelling or deformity. EXTREMITIES: No cyanosis, clubbing, or pedal edema. NEUROLOGICAL: Gross neurological examination did not reveal any focal deficits. Diffusely weak SKIN: No rashes. Assessment: Hyperkalemia Acute hypoxic respiratory failure secondary to CHF exacerbation as well as large left sided pleural effusion and small right, status post left-sided thoracentesis x 2 recently and repeat 1 done on 04/11/2023 with approximately 1.2 L removed Moderate left-sided pneumothorax postprocedure status post Thora vent placement Acute on chronic systolic congestive heart failure exacerbation, EF is 30 to 35% Acute on chronic kidney disease Acute on chronic gastritis with bleeding noted on EGD. 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 Surgery recommended colonoscopy but it has been postponed because of recent Thora vent placement History of moderate to severe aortic stenosis History paroxysmal A-fib, currently rate controlled COPD, acute exacerbation Lactic acidosis, resolved Bilateral pleural effusion status post thoracentesis x 2 this admission GI prophylaxis DVT prophylaxis Full code Plan: Patient is continued on Thora vent and repeat chest x-ray showing improvement in pneumothorax and discussion of possibly removing the Thora vent Continued on 3 L via nasal cannula recommend to wean FiO2 as tolerated Follow-up on repeat labs in the a.m. and monitor kidney functions along with electrolytes. Replace electrolytes per protocol Potassium elevated today status post Lokelma and will follow-up on repeat labs Encouraged increase activity as tolerated as patient reports is going home PT/OT therapy to evaluate the patient Due to multiple complex medical issues, prognosis is guarded The impression and plan of care has been dictated by Tania Reynoso, Nurse Practitioner as directed. Dr. Shane MD I have performed a history and examination and MDM of this patient, discussed the same with the dictator, and agree with the dictator's assessment and plan as written ,documented as a scribe. Based on total visit time, I have performed more than 50% of the visit. Objective - Vital Signs Vital signs: Vital Signs Temp 98.3 F 04/15/23 07:30 Pulse 76 04/15/23 08:31 Resp 12 04/15/23 07:30 BP 102/46 04/15/23 07:30 Pulse Ox 96 04/15/23 08:23 FiO2 Intake & Output 04/14/23 04/15/23 04/15/23 18:59 06:59 18:59 Output Total 400 350 Balance -400 -350 Weight 72.6 kg 68 kg Output: Urine 400 350 Other: Voiding Method Indwelling Catheter Indwelling Catheter # Bowel Movements 1 - Labs CBC & Chem 7: 04/15/23 05:38 04/15/23 05:38 Labs: Abnormal Lab Results - Last 24 Hours (Table) 04/15/23 Range/Units 05:38 RBC 2.34 L (4.40-5.60) X 10*6/uL Hgb 7.2 L (13.0-17.0) g/dL Hct 22.7 L (39.6-50.0) % MCHC 31.7 L (32.0-37.0) g/dL RDW 15.2 H (11.5-14.5) % MPV 12.3 H (9.5-12.2) FL Eosinophils # 0.49 H (0.04-0.35) X 10*3/uL
--- NOTE | 2023-04-15 14:02 | P.PN ---
Subjective Progress Note Date: 04/15/23 CHIEF COMPLAINT: Anemia HISTORY OF PRESENT ILLNESS: Patient presented with anemia and GI bleed. Status post EGD revealing erosive esophagitis and acute gastritis with bleeding. Patient had a left pneumothorax and had a Thora vent placed. Patient denies any abdominal pain. Denies any nausea or vomiting. No signs or symptoms of bleeding. He is tolerating the dysphagia diet. Denies any difficulty with swallowing. Afebrile. WBC 8.44 hemoglobin 7.2 PHYSICAL EXAM: VITAL SIGNS: Reviewed GENERAL: Well-developed in no acute distress. HEENT: No sclera icterus. Extraocular movements grossly intact. Moist buccal mucosa. Head is atraumatic, normocephalic. Hears conversational speech. No nasal d rainage. NECK: Supple without lymphadenopathy. CHEST: Non-labored respirations and equal bilateral excursions. CARDIOVASCULAR: Palpable 2+ radial pulses. ABDOMEN: Soft. Nondistended. Nontender. MUSCULOSKELETAL: No clubbing or cyanosis. NEUROLOGIC: No focal or lateralizing signs. Cranial nerves II through XII grossly intact. PSYCH: Appropriate affect. Alert and oriented to person, place and time. SKIN: Well perfused. Good skin turgor. ASSESSMENT: 1. Anemia status post EGD with acute gastritis with bleeding and erosive esophagitis 2. Left pneumothorax status post left-sided Thora vent 3. History of left pleural effusion status post left-sided thoracentesis 4. Acute on chronic kidney disease 5. Atrial fibrillation 6. Severe aortic stenosis 7. Dysphagia PLAN: -Will plan for EGD with possible dilation and colonoscopy when patient is medically stable -Continue to monitor hemoglobin -Continue to monitor for any signs or symptoms of bleeding -Continue IV Protonix -Continue to hold Eliquis -Continue dysphagia chopped diet as recommended per speech therapist Physician [employer] Truck [employer] note has been reviewed by physician. Signing provider agrees with the documented findings, assessment, and plan of care. CHIEF COMPLAINT: GI bleed HISTORY OF PRESENT ILLNESS: The patient is a 87 year old male with anemia. He has acute on chronic renal failure. No abdominal pain. He developed acute onset pneumothorax. He is on modified diet due to dysphagia. REVIEW OF ORGAN SYSTEMS: No fevers or chills. No nausea or vomiting. No shortness of breath. PHYSICAL EXAM: VITALS: Reviewed CONSTITUTIONAL: Well developed and in no acute distress. EYES: Conjuctivae without sclera icterus. Extraocular movements grossly intact. HEAD, EARS, NOSE, THROAT: Moist buccal mucosa. Head is atraumatic, normocephalic. Hears conversational speech. No nasal drainage. RESPIRATORY: Non-labored respirations and equal bilateral excursions. No gross wheezes. CARDIOVASCULAR: Palpable 2+ radial pulses. ABDOMEN: No abdominal pain. MUSCULOSKELETAL: No clubbing cyanosis or edema SKIN: Warm and well perfused with good skin turgor. NEUROLOGIC: Cranial nerves II through XII grossly intact. No focal or lateralizing signs. PSYCH: Appropriate affect. Alert and oriented to person, place and time. CLINCAL LABS: Reviewed. Hemoglobin 7.2, anemia ASSESSMENT: 1. Anemia 2. GI bleed 3. Acute on chronic kidney failure 4. Atrial fibrillation 5. Ischemic cardiomyopathy 6. Chronic obstructive pulmonary disease 7. Pneumothorax 8. Dysphagia PLAN: 1. Hold blood thinner due to anemia 2. Recommend upper endoscopy with balloon dilation 3. Protonix advised for GI bleed Objective - Vital Signs Vital signs: Vital Signs Temp 98.0 F 04/15/23 13:19 Pulse 75 04/15/23 13:19 Resp 24 04/15/23 13:19 BP 102/43 04/15/23 13:19 Pulse Ox 94 L 04/15/23 13:19 FiO2 Intake & Output 04/14/23 04/15/23 04/15/23 18:59 06:59 18:59 Intake Total 220 Output Total 400 350 Balance -400 -350 220 Weight 72.6 kg 68 kg Intake: Oral 220 Output: Urine 400 350 Other: Voiding Method Indwelling Catheter Indwelling Catheter Indwelling Catheter # Bowel Movements 1 - Labs CBC & Chem 7: 04/27/23 05:45 04/27/23 05:45 Labs: Abnormal Lab Results - Last 24 Hours (Table) 04/15/23 04/15/23 Range/Units 05:38 05:38 RBC 2.34 L (4.40-5.60) X 10*6/uL Hgb 7.2 L (13.0-17.0) g/dL Hct 22.7 L (39.6-50.0) % MCHC 31.7 L (32.0-37.0) g/dL RDW 15.2 H (11.5-14.5) % MPV 12.3 H (9.5-12.2) FL Eosinophils # 0.49 H (0.04-0.35) X 10*3/uL Sodium 134 L (135-145) mmol/L Chloride 94 L (96-109) mmol/L Anion Gap 13.30 H (4.00-12.00) mmol/L BUN 131.0 A* (9.0-27.0) mg/dL Creatinine 4.4 H (0.6-1.5) mg/dL Est GFR (CKD-EPI) 12 L (>=60) BUN/Creatinine Ratio 29.77 H (12.00-20.00) Ratio AST 43 H (14-35) U/L ALT 67 H (10-49) U/L Alkaline Phosphatase 136 H (41-126) U/L Total Protein 5.8 L (6.2-8.2) g/dL Albumin 3.1 L (3.8-4.9) g/dL Albumin/Globulin Ratio 1.15 L (1.60-3.17) Ratio
--- NOTE | 2023-04-15 19:05 | P.PN ---
Subjective Progress Note Date: 04/15/23 I am seeing this patient in consultation today 04/02/2023 for dyspnea and left- sided pleural effusion. He is currently in the emergency room. He was transferred from [facility] late last night for severe hyperkalemia and acute kidney injury. Patient is a 87-year-old white male with past medical history significant for chronic kidney disease, congestive heart failure, atrial fibrillation anticoagulated on Eliquis, hyperlipidemia, COPD, and BPH. Patient is technically a poor historian. Apparently, he is complaining of shortness of breath, weakness and sore throat over the last several days. This progressively worsened, and he went into [facility] to be evaluated. Patient was found to be severely hyperkalemic. He was also found to be anemic and was transfused 1 unit PRBC. He was transferred to [facility]. Patient is currently resting in bed, on 2 L/min nasal cannula, in no acute distress. He is weak and cannot sit up in bed without assistance. Becomes short of breath with any kind of activity. He denies any chest pain, heart palpitations, or syncopal events. He does have bilateral lower extremity swelling. He has an occasional nonproductive cough. Denies any sputum production, fevers. Chest x-ray on arrival shows cardiomegaly, pulmonary vasc ular congestion, and interstitial edema. There is a moderate to large left- sided pleural effusion and small right pleural effusion.. Patient was given 60 mg of IV Lasix. A Riley catheter was inserted, and the patient has approximately 800 mL of concentrated urine. Patient states that earlier in the week he has had troubles urinating. He voids about 2-3 times per day. Endorses dysuria. Denies any hematuria, urinary frequency. Urinalysis on arrival not concerning for UTI. Trace protein. He does have baseline chronic kidney disease. Ultrasound of the abdomen and bladder did not show any hydronephrosis. Potassium level on arrival was elevated at 8.4 and is down to 5 point 3:06 amp sodium bicarb, 10 g Lokelma, 10 units insulin, 2 A D50 W, calcium gluconate, and the above-mentioned Lasix. Nephrology has been consulted. There is D5W with 3 amp sodium bicarb infusing at 50 MLS per hour. BMP on arrival has a sodium 138, testing 8.4, chloride 108, serum bicarb 18, BUN 74, creatinine 3.68, and glucose 85. Lactic acid level was 3.8 on arrival and is down to 1.6. Troponin less th an 0.012. NT proBNP 57,800. ECG shows normal sinus rhythm with chronic left bundle branch block without any obvious hyperkalemic changes. CBC on arrival: WBC count 8.4, hemoglobin 10.7, hematocrit 34, platelets 121. Group A strep negative. No signs of bleeding. Patient has chronic anemia. Patient denies any acute blood loss. No bloody bowel movements, melena, hematemesis. No abdominal pain or diarrhea. Vital signs are stable. The patient is seen today April 03, 2023 in follow-up in the emergency department. He is currently sitting up on the stretcher. Awake and alert in no acute distress. He is breathing a bit easier today compared to yesterday. He states he is about 50% better. He is still somewhat bronchospastic and wheezing. White count 8.6. Hemoglobin 8.1. Platelets 127. Sodium 139. Potassium 5.0. BUN 89. Creatinine 4.02. Glucose 118. He is continued on IV diuretics. Anticoagulated with Eliquis. Continued on bronchodilators. Currently in a -1.2 L balance. Making good urine. The patient is seen today April 04, 2023 in follow-up on the regular medical floor. He is awake and alert in no acute distress. Resting fairly comfortably in bed. Denies any worsening shortness of breath, cough or congestion. He is maintaining O2 saturation in the 90s on 2 L/min per nasal cannula. Chest x-ray does reveal increasing left pleural effusion and a right-sided pleural effusion. Echocardiogram confirms a right-sided pleural effusion measuring 11.9 cm, left- sided pleural effusion at 10.8 cm. The patient is currently on Eliquis this will be placed on hold for possible left-sided thoracentesis tomorrow. Count 9.0. Hemoglobin 7.8. Platelets 140. Sodium 140. Potassium 4.8. Bicarb 28. BUN 87. Creatinine 4.1. Glucose 88. He remains on Lasix 60 mg IV twice a day. Currently net -1.5 L balance The patient is seen today April 05, 2023 in follow-up on the regular medical floor. He is currently sitting up in bed. Awake and alert in no acute distress. He is maintaining O2 saturations in the 90s 2 L/min per nasal cannula. He is been afebrile. Hemodynamically stable. He did undergo a left- sided thoracentesis today with 1.4 L of straw-colored fluid removed. Fluid sent for analysis and cytology. Follow-up chest x-ray reveals a tiny left apical pneumothorax. Sodium 137. Potassium 4.1. Bicarb 31. BUN 97. Creatinine 3.86. Glucose 101. Remains on IV diuretics. Currently in a -2.8 L balance. The patient is seen today April 06, 2023 in follow-up on the regular medical floor. He is awake and alert no acute distress. He is resting comfortably in bed. He is maintaining good O2 saturations in the 90s on 2 L/min per nasal cannula. He remains on IV diuretics. Currently net -2.7 L balance. He is status post left-sided thoracentesis yesterday with 1.4 L of straw-colored fluid removed. Cytology pending. Fluid analysis transudate with a total protein of 2.6 and an LDH of 80. Today's chest x-ray shows small bilateral effusions. No evidence of pneumothorax. Count 8.7. Hemoglobin 7.7. Platelets 139. Sodium 139. Potassium 4.2. Bicarb 29. BUN 91. Creatinine 4.0. The patient is seen today April 07, 2023 in follow-up on the regular medical floor. He is resting comfortably in bed. Awake and alert in no acute distress. Maintaining O2 saturations in the 90s on 2 L/min per nasal cannula. He is con tinued on bronchodilators and oral diuretics. Currently net -1.2 L balance. Follow-up chest x-ray revealed creasing consolidation and pleural effusion on the left. Likely represents a hydropneumothorax of approximately 5 to 10% pneumothorax noted. No significant change. The patient is seen today April 08, 2023 in follow-up on the regular medical floor. He is awake and alert in no acute distress. Maintaining O2 saturations in the 90s on 2 L/min per nasal cannula. Laying in bed. CT scan of the chest revealed moderate-sized bilateral pleural effusions. Left effusion appears loculated and there is additionally a left anterior pneumothorax at approximately 15 to 20%. Consolidation and partial collapse of the left lung. Atelectasis in the right posterior lung. Pleural fluid cultures revealed no growth, no malignancy. No plans for chest tube placement. Eliquis has been resumed. White count 8.5. Hemoglobin 7.7. Platelets 146. Sodium 139. Potassium 3.9. Bicarb 29. BUN 96. Creatinine 3.9. The patient is seen today April 09, 2023 in follow-up on the regular medical floor. He is resting comfortably in bed. Awake and alert in no acute distress. Maintaining O2 saturations in the 90s on 2 L/min per nasal cannula. He denies any worsening shortness of breath, cough or congestion. No new labs today. No chest x-ray today. He is anticoagulated with Eliquis. The patient is seen today April 10, 2023 in follow-up on the regular medical floor. He is awake and alert in no acute distress. Resting fairly comfortably in bed. Today's chest x-ray shows reaccumulation of fluid in the left chest. He is currently on DuoNeb inhalation, Pulmicort inhalations. Remains on oral diuretics. No new labs today. Pleural fluid cultures revealed no growth. He is anticoagulated with Eliquis. The patient is seen today April 11, 2023 in follow-up on the regular medical floor. He is sitting up in bed. Awake and alert in no acute distress. Maintaining O2 saturations in the 90s on 2 L/min per nasal cannula. Sodium 134. Potassium 4.5. Bicarb 30. BUN 130. Creatinine 3.55. Glucose 88. Ultrasound of the chest did reveal a significant left-sided pleural effusion. He under went a second thoracentesis today with 1.2 L of dark yellow fluid removed. Unfortunately, follow-up chest x-ray does reveal a moderate to large left pneumothorax. The patient remains asymptomatic. Repeat chest x-ray pending. He remains on bronchodilators. Remains on oral diuretics. Plan a -1.1 L balance. The patient is seen today April 12, 2023 in follow-up on the regular medical floor. He is awake and alert in no acute distress. Maintaining O2 saturations in the 90s on 2 L/min per nasal cannula. He denies any worsening shortness of breath, cough or congestion. Denies any chest pain. Follow-up chest x-ray continues to show a left apical hydropneumothorax. Slight improvement today compared to yesterday. Pleural fluid cultures revealed no growth. White count 6.5. Hemoglobin 7.6. Platelets 186. Stool for occult blood was positive. He is continued on bronchodilators. Continued on diuretics. Currently in a -700 mL balance. On today's evaluation of 04/13/2023, the patient is being seen for a follow-up. Noted the patient has an acute hypoxic respiratory failure due to CHF and bilateral pleural effusion. Noted the patient had a large left-sided pleural effusion and a small right-sided pleural effusion. His proBNP level was elevated. He underwent a left thoracentesis on 04/05/2023 with a total of 1.4 L of fluid removed that was transudative. Subsequent CAT scan of the chest showed a 15 to 20% pneumothorax. Chest x-ray on 04/10/2023 showed significant recommendation of the left-sided pleural effusion and at the same time there was a persistent pneumothorax on the left. The patient underwent another thoracentesis on 04/11/2023 with a total of 1.2 L of fluid was removed. I reviewed the chest x-ray from today and there is a large stable left-sided hydropneumothorax. Based on that, I inserted the Thora vent in this patient and immediately around 600 cc of pleural fluid was drained in addition to air. The follow-up chest x-ray that was done showed decrease in the left-sided pneumothorax and the thoracostomy tube is in place and attached to suction with persistent air leak. The patient remains clinically and hemodynamically stable on 2 L of oxygen by nasal cannula with a pulse ox of 98%. The patient remains on [facility], on p.o. Lasix 40 mg twice a day. The patient is also on metoprolol 12.5 mg p.o. daily. His echocardiogram that was done on 04/02/2023 showed a left-ventricular ejection fraction of around 30 to 35% along with biatrial enlargement and moderate MR and moderate aortic stenosis/severe aortic stenosis. Moderate degree of tricuspid regurgitation was also present. On today's evaluation of 04/14/2023, I am seeing the patient for a follow- up.Patient has no specific complaints. The Thora vent is still in place and attached to suction. The total amount of output in terms of fluid from the left lung was in the order of 800 cc from yesterday. There is no persistent air leak. I am ordering a urgent chest x-ray to follow-up on the pneumothorax. Otherwise, the patient has no specific complaints. The patient is still on Lasix 40 mg p.o. twice a day. Rest of the medications are essentially unchan ged. Labs from today shows a sodium level of 135, potassium of 5.2, BUN is 124 with a creatinine of 4.1 and a potassium level is at 5.2. Echocardiogram is showing impaired LV function with an ejection fraction of 35% with moderate MR, severe aortic stenosis and bilateral atrial enlargement. The patient is having some fecal occult blood positive and the patient was taken off anticoagulation for now. EGD EGD that was done on 04/13/2023 showed erosive esophagitis and gastritis. On today's evaluation of 04/15/2023, the patient is able to sit up in a chair. He is calm and comfortable. The output from the left sided Thora vent has improved and the fluid output has dropped significantly over the past 24 hours. Repeat chest x-ray was done and the patient continues to have a very trace left apical pneumothorax. There is also some limited subcutaneous emphysema. Overall, the patient is doing well. No significant respiratory distress and the patient was transitioned to room air oxygen with a pulse ox of 94%. The patient is currently on Lasix 40 mg p.o. twice a day. He is on DuoNeb nebulized treatments [id number]. Renal function is being monitored. BUN is at 131 with a creatinine of 4.4 and sodium levels at 134. The WBC count of 8.4 with a hemoglobin of 7.2. Note that the total vent is still faster suction. There is no evidence of any air leak. Suction is being applied in regards to his left- sided pleural effusion which seems to be adequately drained at this point in time. Objective - Vital Signs Vital signs: Vital Signs Temp 98.3 F 04/15/23 07:30 Pulse 76 04/15/23 08:31 Resp 12 04/15/23 07:30 BP 102/46 04/15/23 07:30 Pulse Ox 96 04/15/23 08:23 FiO2 Intake & Output 04/14/23 04/15/23 04/15/23 18:59 06:59 18:59 Output Total 400 350 Balance -400 -350 Weight 72.6 kg 68 kg Output: Urine 400 350 Other: Voiding Method Indwelling Catheter Indwelling Catheter # Bowel Movements 1 - Exam GENERAL EXAM: Alert, pleasant 87-year-old male, resting comfortably in bed, on room air oxygen for now HEAD: Normocephalic and atraumatic EYES: Normal reaction of pupils, equal size. NOSE: Clear with pink turbinates. THROAT: Mild erythema, no exudates NECK: No masses, no JVD. CHEST: No chest wall deformity. LUNGS: Equal air entry with right basilar inspiratory crackles. Diminished in the left lung base. The patient has a left-sided Thora vent attached to a Pleur-evac with no evidence of any air leak and the output is minimal CVS: S1 and S2 normal with no audible murmur, regular rhythm. No extra heart sounds ABDOMEN: No hepatosplenomegaly, active bowel sounds, no guarding or rigidity. SPINE: No scoliosis or deformity SKIN: No rashes CENTRAL NERVOUS SYSTEM: No focal deficits, tone is normal in all 4 extremities. EXTREMITIES: There is moderate bilateral lower extremity nonpitting edema. No clubbing, or cyanosis. Peripheral pulses are intact. - Labs CBC & Chem 7: 04/15/23 05:38 04/15/23 05:38 Labs: Abnormal Lab Results - Last 24 Hours (Table) 04/15/23 04/15/23 Range/Units 05:38 05:38 RBC 2.34 L (4.40-5.60) X 10*6/uL Hgb 7.2 L (13.0-17.0) g/dL Hct 22.7 L (39.6-50.0) % MCHC 31.7 L (32.0-37.0) g/dL RDW 15.2 H (11.5-14.5) % MPV 12.3 H (9.5-12.2) FL Eosinophils # 0.49 H (0.04-0.35) X 10*3/uL Sodium 134 L (135-145) mmol/L Chloride 94 L (96-109) mmol/L Anion Gap 13.30 H (4.00-12.00) mmol/L BUN 131.0 A* (9.0-27.0) mg/dL Creatinine 4.4 H (0.6-1.5) mg/dL Est GFR (CKD-EPI) 12 L (>=60) BUN/Creatinine Ratio 29.77 H (12.00-20.00) Ratio AST 43 H (14-35) U/L ALT 67 H (10-49) U/L Alkaline Phosphatase 136 H (41-126) U/L Total Protein 5.8 L (6.2-8.2) g/dL Albumin 3.1 L (3.8-4.9) g/dL Albumin/Globulin Ratio 1.15 L (1.60-3.17) Ratio Assessment and Plan Plan: Acute hypoxemic respiratory failure, secondary to acute systolic CHF exacerbation and fluid overload. Chest x-ray shows cardiomegaly, pulmonary vascular congestion, and interstitial edema. Patient also has moderate to large left-sided pleural effusion and a small right pleural effusion. NT proBNP was elevated at 57,800. Status post left-sided thoracentesis April 05, 2023 with 1.4 L of straw-colored fluid removed. Fluid analysis transudate, cytology for malignancy. CT scan of the chest and follow-up chest x-ray reveals stable hydropneumothorax of approximately 15 to 20%. Chest x-ray today April 10, 2023 shows significant reaccumulation of fluid in the left chest. Ultrasound reveals a recurrent left pleural effusion measuring 10.4 cm. A second thoracentesis was performed April 11, 2023 with 1.2 L of fluid removed. For now, the patient has a Thora vent and additional 800 cc of fluid was drained through the Thora vent since insertion. Moderate left-sided pneumothorax post procedure,, and the patient is status post Thora vent insertion with partial reexpansion of the left lung and there is some residual pneumothorax. There is no active air leak at this point in time. Repeat chest x-ray f shows a minimal left apical pneumothorax. No evidence of any air leak. Systolic heart failure with ejection fraction of 30 to 35% Moderate to severe aortic stenosis Moderate mitral regurgitation Acute on chronic kidney disease, creatinine is stable at 4.4 Severe hyperkalemia, improved Lactic acidosis, improved Chronic obstructive pulmonary disease, stable History of paroxysmal atrial fibrillation, currently on no anticoagulants Benign prostatic hyperplasia Anemia of chronic disease, patient reportedly received 1 unit PRBC at [facility], current hemoglobin is stable at 7.6 Erosive esophagitis and gastritis Plan: Clinically stable without any significant respiratory distress Output from the left Thora vent has dropped and the patient has minimal apical pneumothorax. Repeat chest x-ray in the morning. Remove the Thora vent if no changes. Monitor for any air leak Patient is currently on room air oxygen Monitor renal function Continue Lasix 40 mg p.o. twice a day Monitor renal function Placed the anticoagulation on hold due to concerns of GI bleed Continue rest of the medications Continue oral diuretics We will continue to follow
[2023-04-15] MEDS: MELATONIN 5 MG TABLET PO PRN (21:41)
[2023-04-16 08:40] LABS: Magnesium 2.2 mg/dL (1.5-2.4)
[2023-04-16 09:02] LABS: HCT 21.1 % (39.6-50.0); HGB 6.7 g/dL (13.0-17.0); MCH 30.7 pg (27.0-32.0); MCHC 31.8 g/dL (32.0-37.0); MCV 96.8 FL (80.0-97.0); NRBC Per 100 WBC 0 X 10*3/uL (0.00-0.01); Platelet Count 207 X 10*3/uL (140-440); RBC 2.18 X 10*6/uL (4.40-5.60); RDW 14.9 % (11.5-14.5); WBC 8.12 X 10*3/uL (4.50-10.00)
[2023-04-16 09:10] LABS: BUN/Creat Ratio 30.67 Ratio (12.00-20.00); Calcium 8.8 mg/dL (8.7-10.3); Carbon Dioxide 26.5 mmol/L (21.6-31.8); Chloride 92 mmol/L (96-109); Glucose 96 mg/dL (70-110); Potassium 5.4 mmol/L (3.5-5.5); Sodium 133 mmol/L (135-145)
--- NOTE | 2023-04-16 09:20 | P.PCN ---
Date of Procedure: 04/16/23 Preoperative Diagnosis: Left-sided pneumothorax status post Thora vent insertion Postoperative Diagnosis: Left-sided pneumothorax status post Thora vent insertion Procedure(s) Performed: Removal of left ThoraVent Indications for Procedure: Resolution of left-sided pneumothorax Description of Procedure: With patient in a Semi-Fowlers position, the left chest ThoraVent was removed without complication. An occlusive dressing was placed over the prior insertion site. Equal breath sounds noted bilaterally. Patient hemodynamically stable at conclusion of ThoraVent removal. Follow-up chest x-ray was ordered.
--- NOTE | 2023-04-16 09:37 | CDI ---
Documentation Clarification Form Date: 04/14/2023 05:54:00 PM From: Leanna Barclay RN, CCDS Phone: [phone] Admit Date: 04/02/2023 12:15:00 AM Patient Name: Jesus Quispe Visit Number: [id number] Discharge Date: ATTENTION: The Clinical Documentation Specialists (CDI) and [facility] Coding Staff appreciate your assistance in clarifying documentation. Please respond to the clarification below the line at the bottom and electronically sign. The CDI & [facility] Coding staff will review the response and follow-up if needed. Please note: Queries are made part of the Legal Health Record. If you have any questions, please contact the author of this message via ITS. Dr. Jeremy Gusman Left pneumothorax is documented in the ongoing progress notes since 04/07/23 and patient had left-sided thoracentesis on 04/05/23 and 04/11/23. Additional clarification is requested regarding the relationship, if any, that exists between the diagnosis and the procedure. Patients Admitting Diagnosis: Large left pleural effusion. Post-Operative Diagnosis: same Procedure performed: Left-sided thoracentesis, History/Risk Factors: Asthma, Heart Failure, COPD, GERD/Reflux, Hyperlipidemia, Prostate Disorder Clinical Indicators: 87-year-old male to ED on 04/02/23 complaining of dyspnea, and weakness. Chest x-ray shows cardiomegaly, pulmonary vascular congestion, and interstitial edema. Patient also has moderate to large left-sided pleural effusion and a small right pleural effusion. NT proBNP was elevated at 57,800. 04/05 Left-sided Thoracentesis. 1.4L of straw-colored fluid removed. No complication CXR possible trace pneumothorax 04/06 CXR: Bilateral infiltrate and small effusion stable 04/07 CXR; Increasing consolidation and pleural effusion on the left likely represent a hydropneumothorax of approximately 5-10 % pneumothorax noted. 04/07 CT Chest w/o contrast: Moderate sized pleural effusion. Left effusion appears somewhat lobulated and there is additionally a left anterior pneumothorax, approximately 15-20% Consolidation and partial collapse of the left lung, appears similar to the most recent radiographs. 04/11 Left-sided thoracentesis. 12 L of dark yellow brown fluid was removed from the left pleural space. No complications 2 CXR: Increasing pneumothorax now moderate to large left pneumothorax 04/11 CXR: Unchanged appearance of moderate to large left-sided hydropneumothorax, with consolidation/collapse of the left lung. 04/13 Procedure: Left-sided thora vent Treatment: Wellness Specialist/Telemetry Daily Weight/ monitor I/O Monitor I2 Sat's (titrate) Duoneb 3 mlSolin QID Lasix 40 MG PO BID 04/06-04/15 Lasix 40 MG IV Q 8 HRS 04/12-04/03 Then 60 MG IV BID - What relationship, if any, exists between the diagnosis of Pneumothorax and the procedure: [ x ] Pneumothorax is a complication of surgical procedure [ ] Pneumothorax is an expected outcome of the surgical procedure [ ] Pneumothorax is related to patients co-morbid condition(s) of [insert co- morbid dxs] & not a complication of the procedure [ ] Other please specify ____ [ ] Unable to determine (Template Last Revised: April 2020) MTDD
[2023-04-16 10:05] LABS: Neutrophils % (M) 84 %
--- NOTE | 2023-04-16 10:22 | XR ---
EXAMINATION TYPE: XR chest 1V DATE OF EXAM: 04/16/2023 6:47 AM CLINICAL INDICATION:Male, 87 years old with history of Pneumothorax; [facility] COMPARISON: Chest radiograph from one day prior. TECHNIQUE: XR chest 1V Frontal view of the chest. FINDINGS: Lungs/Pleura: There is no evidence of pleural effusion, focal consolidation, or pneumothorax. Pulmonary vascularity: Unremarkable. Heart/mediastinum: Cardiomediastinal silhouette is unremarkable. Atherosclerotic calcifications are seen in the aorta. Musculoskeletal: No acute osseous pathology. There remains a left rib fracture. Other findings: Subcutaneous emphysema scattered throughout the left lateral chest Lines/Tubes: Left thoracotomy tube in place. There may be a trace pneumothorax remaining on today's exam. IMPRESSION: Left thoracotomy tube with possible trace pneumothorax on today's exam.
--- NOTE | 2023-04-16 10:57 | P.PN ---
Subjective Patient is seen in follow-up for acute kidney injury on chronic kidney disease. Renal function fairly stable. On po Lasix. Nonoliguric. On nasal cannula. Denies chest pain or shortness of breath. Denies any active bleeding. Hemoglobin 6.7 today. Vital signs are stable. General: No acute distress. HEENT: Head exam is unremarkable. LUNGS: No acute distress. HEART: Rate and Rhythm are regular. ABDOMEN: Nontender. EXTREMITITES: No edema. Objective - Vital Signs Vital signs: Vital Signs Temp 97.7 F 04/16/23 07:31 Pulse 72 04/16/23 09:21 Resp 19 04/16/23 07:31 BP 102/39 04/16/23 07:31 Pulse Ox 93 L 04/16/23 07:31 FiO2 Intake & Output 04/15/23 04/16/23 04/16/23 18:59 06:59 18:59 Intake Total 460 Output Total 375 150 325 Balance 85 -150 -325 Weight 133 kg Intake: Oral 460 Output: Chest Tube Drainage 175 Thora-Vent Left Anterior 175 Chest Urine 200 150 325 Other: Voiding Method Indwelling Catheter Indwelling Catheter # Voids 1 - Labs CBC & Chem 7: 04/16/23 05:01 04/16/23 05:01 Labs: Abnormal Lab Results - Last 24 Hours (Table) 04/16/23 04/16/23 Range/Units 05:01 05:01 RBC 2.18 L (4.40-5.60) X 10*6/uL Hgb 6.7 A* (13.0-17.0) g/dL Hct 21.1 L (39.6-50.0) % MCHC 31.8 L (32.0-37.0) g/dL RDW 14.9 H (11.5-14.5) % Sodium 133 L (135-145) mmol/L Chloride 92 L (96-109) mmol/L Anion Gap 14.50 H (4.00-12.00) mmol/L BUN 138.0 A* (9.0-27.0) mg/dL Creatinine 4.5 H (0.6-1.5) mg/dL Est GFR (CKD-EPI) 12 L (>=60) BUN/Creatinine Ratio 30.67 H (12.00-20.00) Ratio Assessment and Plan Plan: Assessment: 1. Acute kidney injury secondary to ATN secondary to cardiorenal syndrome, anemia and urinary retention. Creatinine up to 4.5 today. No hydronephrosis noted on kidney ultrasound. Elevated BUN due to acute kidney injury and also GI bleed. 2. Chronic kidney disease stage IV with baseline creatinine near 3 secondary to nephrosclerosis and obstructive uropathy. 3. Hyperkalemia secondary to acute kidney injury, acidosis and urinary retention. Also component of GI bleed. Improved with medical management. 4. Volume overload with pleural effusions. Improved with diuresis. 5. Acute blood loss anemia status post blood transfusion this admission. EGD done this admission showed acute on chronic gastritis with bleeding. Colonoscopy penidng. On Aranesp. Scheduled to receive unit of blood today. 6. Acute on chronic systolic CHF ejection fraction of 30 to 35% with moderate mitral and tricuspid regurgitation. 7. Metabolic acidosis secondary to acute kidney injury s/p bicarb drip. 8. Urinary retention status post Riley catheter placement. On Flomax. Plan: Maintain oral Lasix. Repeat Lokelma 10 g once today. DDAVP IV x 1 dose today Avoid nephrotoxins. Continue to monitor renal function and urine output. Continue to assess daily for need for renal replacement therapy. No urgency at this time. Patient is a poor candidate for renal replacement therapy.
[2023-04-16 10:58] LABS: Basophils # (M) 0.08 X 10*3/uL (0.00-0.10); Eosinophils # (M) 0.49 X 10*3/uL (0.04-0.35); Lymphocytes # (M) 0.41 X 10*3/uL (0.90-5.00); Monocytes # (M) 0.32 X 10*3/uL (0.20-1.00); Neutrophils # (M) 6.82 X 10*3/uL (1.80-7.70)
[2023-04-16] MEDS: SODIUM ZIRCONIUM CYCLOSILICATE 10 GM PACKET PO ONE (11:44)
[2023-04-16] MEDS: DESMOPRESSIN ACETATE 28 MCG in SODIUM CHLORIDE 0.9% 50 ML IVPB ONE (12:29)
--- NOTE | 2023-04-16 13:51 | P.PN ---
Subjective Progress Note Date: 04/16/23 CHIEF COMPLAINT: Anemia HISTORY OF PRESENT ILLNESS: Patient presented with anemia and GI bleed. Status post EGD revealing erosive esophagitis and acute gastritis with bleeding. Patient had a left pneumothorax and had a Thora vent placed. Patient is Thora vent removed this morning. Patient denies any abdominal pain. Denies any nausea or vomiting. No signs or symptoms of bleeding. He is tolerating the dysphagia diet. Patient reports that his swallowing is doing okay. Hemoglobin is down to 6.7 and he is receiving a unit of blood. Afebrile. PHYSICAL EXAM: VITAL SIGNS: Reviewed GENERAL: Well-developed in no acute distress. HEENT: No sclera icterus. Extraocular movements grossly intact. Moist buccal mucosa. Head is atraumatic, normocephalic. Hears conversational speech. No nasal suly inage. NECK: Supple without lymphadenopathy. CHEST: Non-labored respirations and equal bilateral excursions. CARDIOVASCULAR: Palpable 2+ radial pulses. ABDOMEN: Soft. Nondistended. Nontender. MUSCULOSKELETAL: No clubbing or cyanosis. NEUROLOGIC: No focal or lateralizing signs. Cranial nerves II through XII grossly intact. PSYCH: Appropriate affect. Alert and oriented to person, place and time. SKIN: Well perfused. Good skin turgor. ASSESSMENT: 1. Anemia status post EGD with acute gastritis with bleeding and erosive esophagitis 2. Left pneumothorax status post left-sided Thora vent 3. History of left pleural effusion status post left-sided thoracentesis 4. Acute on chronic kidney disease 5. Atrial fibrillation 6. Severe aortic stenosis 7. Dysphagia PLAN: -Will plan for EGD with possible dilation and colonoscopy when patient is medically stable. Anticipating possible endoscopies on Thursday with Dr. Dueñas -Continue to monitor hemoglobin -Continue to monitor for any signs or symptoms of bleeding -Agree with blood transfusion -Continue IV Protonix -Continue to hold Eliquis -Continue dysphagia chopped diet as recommended per speech therapist Physician Treadle Cut Off Saw Operator note has been reviewed by physician. Signing provider agrees with the documented findings, assessment, and plan of care. CHIEF COMPLAINT: GI bleed HISTORY OF PRESENT ILLNESS: The patient is a 87 year old male with anemia. He reports troubles with swallowing. No gross blood. Thora vent removed for pneumothorax. Hemoglobin continues to decline. Patient has history of ischemic cardiomyopathy. REVIEW OF ORGAN SYSTEMS: No fevers or chills. No nausea or vomiting. No shortness of breath. PHYSICAL EXAM: VITALS: Reviewed CONSTITUTIONAL: Well developed and in no acute distress. EYES: Conjuctivae without sclera icterus. Extraocular movements grossly intact. HEAD, EARS, NOSE, THROAT: Moist buccal mucosa. Head is atraumatic, normocephalic. Hears conversational speech. No nasal drainage. RESPIRATORY: Non-labored respirations and equal bilateral excursions. No gross wheezes. CARDIOVASCULAR: Palpable 2+ radial pulses. ABDOMEN: No abdominal pain. MUSCULOSKELETAL: No clubbing cyanosis or edema SKIN: Warm and well perfused with good skin turgor. NEUROLOGIC: Cranial nerves II through XII grossly intact. No focal or lateralizing signs. PSYCH: Appropriate affect. Alert and oriented to person, place and time. CLINCAL LABS: Reviewed. Hemoglobin 6.7, anemia ASSESSMENT: 1. Anemia 2. GI bleed 3. Acute on chronic kidney failure 4. Atrial fibrillation 5. Ischemic cardiomyopathy 6. Chronic obstructive pulmonary disease 7. Pneumothorax 8. Dysphagia PLAN: 1. Blood transfusion as needed 2. Continue proton 3. Hold blood thinner 4. Recommend colonoscopy for further assessment of GI bleed and upper endoscopy for dilation due to dysphagia. 5. Overall, he is elevated risk due to pre-existing heart disease Objective - Vital Signs Vital signs: Vital Signs Temp 97.7 F 04/16/23 07:31 Pulse 72 04/16/23 12:35 Resp 19 04/16/23 07:31 BP 102/39 04/16/23 07:31 Pulse Ox 93 L 04/16/23 07:31 FiO2 Intake & Output 04/15/23 04/16/23 04/16/23 18:59 06:59 18:59 Intake Total 460 Output Total 375 150 325 Balance 85 -150 -325 Weight 133 kg Intake: Oral 460 Output: Chest Tube Drainage 175 Thora-Vent Left Anterior 175 Chest Urine 200 150 325 Other: Voiding Method Indwelling Catheter Indwelling Catheter # Voids 1 - Labs CBC & Chem 7: 04/27/23 05:45 04/27/23 05:45 Labs: Abnormal Lab Results - Last 24 Hours (Table) 04/16/23 04/16/23 04/16/23 Range/Units 05:01 05:01 11:14 RBC 2.18 L (4.40-5.60) X 10*6/uL Hgb 6.7 A* (13.0-17.0) g/dL Hct 21.1 L (39.6-50.0) % MCHC 31.8 L (32.0-37.0) g/dL RDW 14.9 H (11.5-14.5) % Lymphocytes # (Manual) 0.41 L (0.90-5.00) X 10*3/uL Eosinophils # (Manual) 0.49 H (0.04-0.35) X 10*3/uL Sodium 133 L (135-145) mmol/L Chloride 92 L (96-109) mmol/L Anion Gap 14.50 H (4.00-12.00) mmol/L BUN 138.0 A* (9.0-27.0) mg/dL Creatinine 4.5 H (0.6-1.5) mg/dL Est GFR (CKD-EPI) 12 L (>=60) BUN/Creatinine Ratio 30.67 H (12.00-20.00) Ratio Crossmatch See Detail
--- NOTE | 2023-04-16 14:20 | P.PN ---
Subjective Progress Note Date: 04/16/23 Patient is a 87-year-old white male with past medical history significant for chronic kidney disease, congestive heart failure, atrial fibrillation anticoagulated on Eliquis, hyperlipidemia, COPD, and BPH, who was transferred from [facility] for severe hyperkalemia and acute kidney injury. Patient has been complaining of shortness of breath and weakness for a few days. Patient also complaining of sore throat. Patient weakness and shortness of breath progressed so he eventually presented to [facility] where he was evaluated, patient was found to have elevated potassium levels of 8.4, patient was given hyperkalemia protocol and received sodium bicarb, Lokelma, insulin and dextrose. Chest x-ray done showed large left pleural effusion small right pleural effusion, patient was transferred to [facility]. Patient has been complaining of shortness of breath on exertion and rest. Denies any chest pain. There is complaint of swelling of lower extremities. Patient complaining of nonproductive cough. Denies any fevers or chills Patient admitted to internal medicine service 04/03. Patient seen and examined. 2D echo done showed LVEF of 35% with global hypokinesis, severe biatrial enlargement, moderate mitral regurg, severe aortic stenosis. 04/04. Patient seen and examined. States breathing is improving, still gets short of breath on exertion. 04/05. Patient seen and examined. Patient being planned for thoracentesis this morning with pulmonary medicine. States breathing is improved. Denies any nausea or vomiting 04/06. Patient seen and examined. States breathing has improved, feels much better after thoracentesis yesterday. Labs done this morning showed WBC 8.7, hemoglobin 7.7, platelet count 139, sodium 139, potassium 4.2, BUN 90, creatinine 4 04/07/2023 Patient is currently sitting up in the chair. Awake alert and oriented 3. Currently on 2 L oxygen via nasal cannula. Patient is being cannula on by mouth twice a day. Also on DuoNeb's and Pulmicort inhalation. No comments of nausea or vomiting. Tolerating oral diet. No bowel movement today. Laboratory data showed sodium 138 potassium 4.0 chloride 95 BUN 91.1 and creatinine 4.0 Patient is being followed by pulmonary and nephrology. Chest x-ray showed increasing consolidation and pleural effusion on the left. Likely represent a hydropneumothorax of approximately 5-10% pneumothorax noted. No significant interval change. 04/08/2023 Patient is currently sitting which it. Awake alert and oriented 3. requiring oxygen at a 2 L via nasal cannula. pleural fluid cultures showed no growth. No plans for chest tube placement. Pulmonary is on board. laboratory data showed sodium 139, potassium 3.9, chloride 95, BUN 96.5 and creatinine 3.1. Nephrology and pulmonology is on board. 04/09/2023 Patient is sitting in the chair. Awake alert and oriented 3. Requiring 2 L oxygen with nasal cannula. Patient does have home oxygen. Patient has been afebrile. Able to tolerate oral diet. Pleural fluid culture is negative. Cytology is negative for malignancy.. Repeat chest x-ray was ordered for tomorrow. No plan for chest tube placement at this time. Pulmonary is on board. No new laboratory data today. 04/11. Patient seen and examined. Repeat chest x-ray done showed pneumothorax moderate to large left, currently not in respiratory distress. Denies any blood in the stools 04/12. Patient seen and examined. Labs done this morning showed WBC 6.5, hemoglobin 7.6, platelet count 186, sodium 130, potassium 4.8, BUN 122, creatinine 3.9. FOBT was positive, surgery was consulted, they recommended doing EGD which is scheduled for tomorrow morning. N.p.o. at midnight 04/13. Patient seen and examined. Patient went for EGD this morning which s howed Squamocolumnar junction 41 cm from the incisors,Diaphragmatic hiatus at 41 cm,LA grade B erosive esophagitis,Acute gastritis with bleeding. 04/14. Patient seen examined. Patient had left-sided Thora vent placed. Shortness of breath has improved. Denies any nausea or vomiting. 04/15/2023 Patient is seen and evaluated in follow-up this morning continues on 3 L via nasal cannula currently weaning FiO2 as tolerated. Patient being followed by pulmonary recommending follow-up chest x-ray to monitor left-sided pneumothorax. Patient continues with left Thora vent and pulmonary discussing possibly removing the chest tube. Patient also being followed by cardiology as well as nephrology with CHF exacerbation along with acute on chronic kidney disease exacerbation. Patient has had prolonged hospitalization and generalized weakness and patient reports will be returning home and has support at the home and will continue with rehab in the outpatient setting. Patient is adamant he is going home once discharged. Hemoglobin is stable above 7 at 7.2 today white count remains normal, sodium is 134 with a potassium of 5.4, BUN is 131 and creatinine is 4.4, LFTs slightly trending down and C. difficile testing from yesterday was negative. Patient continues on oral Lasix. Potassium slightly elevated today and was given a dose of Lokelma. Will follow-up on repeat labs. Patient was continued on scheduled lactulose per surgery recommendations and will make as needed as patient is reporting having loose stools. 04/16/2023 Patient is seen in follow-up today status post chest x-ray today that showed a trace pneumothorax on the left and patient is scheduled to have the thoracotomy tube removed. Hemoglobin this morning slightly low at 6.7 and will transfuse 1 unit of PRBCs and follow-up on repeat labs later this afternoon. Patient continues on 3 L via nasal cannula reporting continued shortness of breath although no worse. Kidney functions continue with an elevated BUN of 138 and creatinine is 4.5. Nephrology is following. Potassium remains elevated and is status post a dose of Lokelma and patient has been given DDAVP today. Will follow-up with repeat labs. Encouraged increase activity as tolerated recommend PT/OT therapy evaluation. General surgery following as well with plans of endoscopic intervention including EGD and colonoscopy once more stable. Possibl y Thursday. Anticoagulation remains on hold. REVIEW OF SYSTEMS: CONSTITUTIONAL: No fever, no malaise,. CARDIOVASCULAR: No chest pain, no palpitations, no syncope. PULMONARY: As mentioned above GASTROINTESTINAL: Reports of diarrhea, no nausea, no vomiting, no abdominal pain. NEUROLOGICAL: No headaches, no weakness, PHYSICAL EXAMINATION: GENERAL: The patient is alert and oriented x3, not in any acute distress. Well developed, well nourished. Elderly appearing, ill-appearing, thin built HEENT: Pupils are round and equally reacting to light. EOMI. No scleral icterus. No conjunctival pallor. Normocephalic, atraumatic. No pharyngeal erythema. No thyromegaly. CARDIOVASCULAR: S1 and S2 muffled PULMONARY: Coarse breath sound bilaterally, diminished at the bases, crackles audible, post left Thora vent removal and dressing is intact on the chest ABDOMEN: Soft, nontender, nondistended, normoactive bowel sounds. No palpable organomegaly. MUSCULOSKELETAL: No joint swelling or deformity. EXTREMITIES: No cyanosis, clubbing, or pedal edema. NEUROLOGICAL: Gross neurological examination did not reveal any focal deficits. Diffusely weak SKIN: No rashes. Assessment: Hyperkalemia Acute hypoxic respiratory failure secondary to CHF exacerbation as well as large left sided pleural effusion and small right, status post left-sided thoracentesis x 2 recently and repeat 1 done on 04/11/2023 with approximately 1.2 L removed Moderate left-sided pneumothorax postprocedure status post Thora vent placement, Thora vent being removed today 04/16/2023 Acute on chronic systolic congestive heart failure exacerbation, EF is 30 to 35% Acute on chronic kidney disease Acute on chronic gastritis with bleeding noted on EGD. 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 Surgery recommended colonoscopy once more stable with plans of possibly Thursday undergoing colonoscopy, anticoagulation remains on hold Anemia, likely chronic History of moderate to severe aortic stenosis History paroxysmal A-fib, currently rate controlled COPD, acute exacerbation Lactic acidosis, resolved Bilateral pleural effusion status post thoracentesis x 2 this admission GI prophylaxis DVT prophylaxis Full code Plan: Patient is continued on Thora vent and repeat chest x-ray showing improvement and patient is status post ORIF on removal with pulmonary today Continued on 3 L via nasal cannula recommend to wean FiO2 as tolerated Follow-up on repeat labs in the a.m. and monitor kidney functions along with electrolytes. Replace electrolytes per protocol Potassium remains elevated today status post Lokelma and DDAVP with nephrology following closely. Will follow-up on repeat labs Encouraged increase activity as tolerated as patient reports is going home. Recommend PT/OT therapy daily Hemoglobin was 6.9 today and will transfuse a unit of blood and follow-up with repeat labs, transfuse if less than 7 Due to multiple complex medical issues, prognosis is guarded The impression and plan of care has been dictated by Tania Reynoso, Nurse Practitioner as directed. Dr. Shane MD I have performed a history and examination and MDM of this patient, discussed the same with the dictator, and agree with the dictator's assessment and plan as written ,documented as a scribe. Based on total visit time, I have performed more than 50% of the visit. Objective - Vital Signs Vital signs: Vital Signs Temp 97.7 F 04/16/23 07:31 Pulse 72 04/16/23 09:06 Resp 19 04/16/23 07:31 BP 102/39 04/16/23 07:31 Pulse Ox 93 L 04/16/23 07:31 FiO2 Intake & Output 04/15/23 04/16/23 04/16/23 18:59 06:59 18:59 Intake Total 460 Output Total 375 150 Balance 85 -150 Weight 133 kg Intake: Oral 460 Output: Chest Tube Drainage 175 Thora-Vent Left Anterior 175 Chest Urine 200 150 Other: Voiding Method Indwelling Catheter Indwelling Catheter # Voids 1 - Labs CBC & Chem 7: 04/16/23 05:01 04/16/23 05:01 Labs: Abnormal Lab Results - Last 24 Hours (Table) 04/15/23 04/16/23 04/16/23 Range/Units 05:38 05:01 05:01 RBC 2.18 L (4.40-5.60) X 10*6/uL Hgb 6.7 A* (13.0-17.0) g/dL Hct 21.1 L (39.6-50.0) % MCHC 31.8 L (32.0-37.0) g/dL RDW 14.9 H (11.5-14.5) % Sodium 134 L 133 L (135-145) mmol/L Chloride 94 L 92 L (96-109) mmol/L Anion Gap 13.30 H 14.50 H (4.00-12.00) mmol/L BUN 131.0 A* 138.0 A* (9.0-27.0) mg/dL Creatinine 4.4 H 4.5 H (0.6-1.5) mg/dL Est GFR (CKD-EPI) 12 L 12 L (>=60) BUN/Creatinine Ratio 29.77 H 30.67 H (12.00-20.00) Ratio AST 43 H (14-35) U/L ALT 67 H (10-49) U/L Alkaline Phosphatase 136 H (41-126) U/L Total Protein 5.8 L (6.2-8.2) g/dL Albumin 3.1 L (3.8-4.9) g/dL Albumin/Globulin Ratio 1.15 L (1.60-3.17) Ratio
--- NOTE | 2023-04-16 16:36 | P.PN ---
Subjective Progress Note Date: 04/16/23 I am seeing this patient in consultation today 04/02/2023 for dyspnea and left- sided pleural effusion. He is currently in the emergency room. He was transferred from [facility] late last night for severe hyperkalemia and acute kidney injury. Patient is a 87-year-old white male with past medical history significant for chronic kidney disease, congestive heart failure, atrial fibrillation anticoagulated on Eliquis, hyperlipidemia, COPD, and BPH. Patient is technically a poor historian. Apparently, he is complaining of shortness of breath, weakness and sore throat over the last several days. This progressively worsened, and he went into [facility] to be evaluated. Patient was found to be severely hyperkalemic. He was also found to be anemic and was transfused 1 unit PRBC. He was transferred to [facility]. Patient is currently resting in bed, on 2 L/min nasal cannula, in no acute distress. He is weak and cannot sit up in bed without assistance. Becomes short of breath with any kind of activity. He denies any chest pain, heart palpitations, or syncopal events. He does have bilateral lower extremity swelling. He has an occasional nonproductive cough. Denies any sputum production, fevers. Chest x-ray on arrival shows cardiomegaly, pulmonary vasc ular congestion, and interstitial edema. There is a moderate to large left- sided pleural effusion and small right pleural effusion.. Patient was given 60 mg of IV Lasix. A Riley catheter was inserted, and the patient has approximately 800 mL of concentrated urine. Patient states that earlier in the week he has had troubles urinating. He voids about 2-3 times per day. Endorses dysuria. Denies any hematuria, urinary frequency. Urinalysis on arrival not concerning for UTI. Trace protein. He does have baseline chronic kidney disease. Ultrasound of the abdomen and bladder did not show any hydronephrosis. Potassium level on arrival was elevated at 8.4 and is down to 5 point 3:06 amp sodium bicarb, 10 g Lokelma, 10 units insulin, 2 A D50 W, calcium gluconate, and the above-mentioned Lasix. Nephrology has been consulted. There is D5W with 3 amp sodium bicarb infusing at 50 MLS per hour. BMP on arrival has a sodium 138, testing 8.4, chloride 108, serum bicarb 18, BUN 74, creatinine 3.68, and glucose 85. Lactic acid level was 3.8 on arrival and is down to 1.6. Troponin less th an 0.012. NT proBNP 57,800. ECG shows normal sinus rhythm with chronic left bundle branch block without any obvious hyperkalemic changes. CBC on arrival: WBC count 8.4, hemoglobin 10.7, hematocrit 34, platelets 121. Group A strep negative. No signs of bleeding. Patient has chronic anemia. Patient denies any acute blood loss. No bloody bowel movements, melena, hematemesis. No abdominal pain or diarrhea. Vital signs are stable. The patient is seen today April 03, 2023 in follow-up in the emergency department. He is currently sitting up on the stretcher. Awake and alert in no acute distress. He is breathing a bit easier today compared to yesterday. He states he is about 50% better. He is still somewhat bronchospastic and wheezing. White count 8.6. Hemoglobin 8.1. Platelets 127. Sodium 139. Potassium 5.0. BUN 89. Creatinine 4.02. Glucose 118. He is continued on IV diuretics. Anticoagulated with Eliquis. Continued on bronchodilators. Currently in a -1.2 L balance. Making good urine. The patient is seen today April 04, 2023 in follow-up on the regular medical floor. He is awake and alert in no acute distress. Resting fairly comfortably in bed. Denies any worsening shortness of breath, cough or congestion. He is maintaining O2 saturation in the 90s on 2 L/min per nasal cannula. Chest x-ray does reveal increasing left pleural effusion and a right-sided pleural effusion. Echocardiogram confirms a right-sided pleural effusion measuring 11.9 cm, left- sided pleural effusion at 10.8 cm. The patient is currently on Eliquis this will be placed on hold for possible left-sided thoracentesis tomorrow. Count 9.0. Hemoglobin 7.8. Platelets 140. Sodium 140. Potassium 4.8. Bicarb 28. BUN 87. Creatinine 4.1. Glucose 88. He remains on Lasix 60 mg IV twice a day. Currently net -1.5 L balance The patient is seen today April 05, 2023 in follow-up on the regular medical floor. He is currently sitting up in bed. Awake and alert in no acute distress. He is maintaining O2 saturations in the 90s 2 L/min per nasal cannula. He is been afebrile. Hemodynamically stable. He did undergo a left- sided thoracentesis today with 1.4 L of straw-colored fluid removed. Fluid sent for analysis and cytology. Follow-up chest x-ray reveals a tiny left apical pneumothorax. Sodium 137. Potassium 4.1. Bicarb 31. BUN 97. Creatinine 3.86. Glucose 101. Remains on IV diuretics. Currently in a -2.8 L balance. The patient is seen today April 06, 2023 in follow-up on the regular medical floor. He is awake and alert no acute distress. He is resting comfortably in bed. He is maintaining good O2 saturations in the 90s on 2 L/min per nasal cannula. He remains on IV diuretics. Currently net -2.7 L balance. He is status post left-sided thoracentesis yesterday with 1.4 L of straw-colored fluid removed. Cytology pending. Fluid analysis transudate with a total protein of 2.6 and an LDH of 80. Today's chest x-ray shows small bilateral effusions. No evidence of pneumothorax. Count 8.7. Hemoglobin 7.7. Platelets 139. Sodium 139. Potassium 4.2. Bicarb 29. BUN 91. Creatinine 4.0. The patient is seen today April 07, 2023 in follow-up on the regular medical floor. He is resting comfortably in bed. Awake and alert in no acute distress. Maintaining O2 saturations in the 90s on 2 L/min per nasal cannula. He is con tinued on bronchodilators and oral diuretics. Currently net -1.2 L balance. Follow-up chest x-ray revealed creasing consolidation and pleural effusion on the left. Likely represents a hydropneumothorax of approximately 5 to 10% pneumothorax noted. No significant change. The patient is seen today April 08, 2023 in follow-up on the regular medical floor. He is awake and alert in no acute distress. Maintaining O2 saturations in the 90s on 2 L/min per nasal cannula. Laying in bed. CT scan of the chest revealed moderate-sized bilateral pleural effusions. Left effusion appears loculated and there is additionally a left anterior pneumothorax at approximately 15 to 20%. Consolidation and partial collapse of the left lung. Atelectasis in the right posterior lung. Pleural fluid cultures revealed no growth, no malignancy. No plans for chest tube placement. Eliquis has been resumed. White count 8.5. Hemoglobin 7.7. Platelets 146. Sodium 139. Potassium 3.9. Bicarb 29. BUN 96. Creatinine 3.9. The patient is seen today April 09, 2023 in follow-up on the regular medical floor. He is resting comfortably in bed. Awake and alert in no acute distress. Maintaining O2 saturations in the 90s on 2 L/min per nasal cannula. He denies any worsening shortness of breath, cough or congestion. No new labs today. No chest x-ray today. He is anticoagulated with Eliquis. The patient is seen today April 10, 2023 in follow-up on the regular medical floor. He is awake and alert in no acute distress. Resting fairly comfortably in bed. Today's chest x-ray shows reaccumulation of fluid in the left chest. He is currently on DuoNeb inhalation, Pulmicort inhalations. Remains on oral diuretics. No new labs today. Pleural fluid cultures revealed no growth. He is anticoagulated with Eliquis. The patient is seen today April 11, 2023 in follow-up on the regular medical floor. He is sitting up in bed. Awake and alert in no acute distress. Maintaining O2 saturations in the 90s on 2 L/min per nasal cannula. Sodium 134. Potassium 4.5. Bicarb 30. BUN 130. Creatinine 3.55. Glucose 88. Ultrasound of the chest did reveal a significant left-sided pleural effusion. He under went a second thoracentesis today with 1.2 L of dark yellow fluid removed. Unfortunately, follow-up chest x-ray does reveal a moderate to large left pneumothorax. The patient remains asymptomatic. Repeat chest x-ray pending. He remains on bronchodilators. Remains on oral diuretics. Plan a -1.1 L balance. The patient is seen today April 12, 2023 in follow-up on the regular medical floor. He is awake and alert in no acute distress. Maintaining O2 saturations in the 90s on 2 L/min per nasal cannula. He denies any worsening shortness of breath, cough or congestion. Denies any chest pain. Follow-up chest x-ray continues to show a left apical hydropneumothorax. Slight improvement today compared to yesterday. Pleural fluid cultures revealed no growth. White count 6.5. Hemoglobin 7.6. Platelets 186. Stool for occult blood was positive. He is continued on bronchodilators. Continued on diuretics. Currently in a -700 mL balance. On today's evaluation of 04/13/2023, the patient is being seen for a follow-up. Noted the patient has an acute hypoxic respiratory failure due to CHF and bilateral pleural effusion. Noted the patient had a large left-sided pleural effusion and a small right-sided pleural effusion. His proBNP level was elevated. He underwent a left thoracentesis on 04/05/2023 with a total of 1.4 L of fluid removed that was transudative. Subsequent CAT scan of the chest showed a 15 to 20% pneumothorax. Chest x-ray on 04/10/2023 showed significant recommendation of the left-sided pleural effusion and at the same time there was a persistent pneumothorax on the left. The patient underwent another thoracentesis on 04/11/2023 with a total of 1.2 L of fluid was removed. I reviewed the chest x-ray from today and there is a large stable left-sided hydropneumothorax. Based on that, I inserted the Thora vent in this patient and immediately around 600 cc of pleural fluid was drained in addition to air. The follow-up chest x-ray that was done showed decrease in the left-sided pneumothorax and the thoracostomy tube is in place and attached to suction with persistent air leak. The patient remains clinically and hemodynamically stable on 2 L of oxygen by nasal cannula with a pulse ox of 98%. The patient remains on [facility], on p.o. Lasix 40 mg twice a day. The patient is also on metoprolol 12.5 mg p.o. daily. His echocardiogram that was done on 04/02/2023 showed a left-ventricular ejection fraction of around 30 to 35% along with biatrial enlargement and moderate MR and moderate aortic stenosis/severe aortic stenosis. Moderate degree of tricuspid regurgitation was also present. On today's evaluation of 04/14/2023, I am seeing the patient for a follow- up.Patient has no specific complaints. The Thora vent is still in place and attached to suction. The total amount of output in terms of fluid from the left lung was in the order of 800 cc from yesterday. There is no persistent air leak. I am ordering a urgent chest x-ray to follow-up on the pneumothorax. Otherwise, the patient has no specific complaints. The patient is still on Lasix 40 mg p.o. twice a day. Rest of the medications are essentially unchan ged. Labs from today shows a sodium level of 135, potassium of 5.2, BUN is 124 with a creatinine of 4.1 and a potassium level is at 5.2. Echocardiogram is showing impaired LV function with an ejection fraction of 35% with moderate MR, severe aortic stenosis and bilateral atrial enlargement. The patient is having some fecal occult blood positive and the patient was taken off anticoagulation for now. EGD EGD that was done on 04/13/2023 showed erosive esophagitis and gastritis. On today's evaluation of 04/15/2023, the patient is able to sit up in a chair. He is calm and comfortable. The output from the left sided Thora vent has improved and the fluid output has dropped significantly over the past 24 hours. Repeat chest x-ray was done and the patient continues to have a very trace left apical pneumothorax. There is also some limited subcutaneous emphysema. Overall, the patient is doing well. No significant respiratory distress and the patient was transitioned to room air oxygen with a pulse ox of 94%. The patient is currently on Lasix 40 mg p.o. twice a day. He is on DuoNeb nebulized treatments [id number]. Renal function is being monitored. BUN is at 131 with a creatinine of 4.4 and sodium levels at 134. The WBC count of 8.4 with a hemoglobin of 7.2. Note that the total vent is still faster suction. There is no evidence of any air leak. Suction is being applied in regards to his left- sided pleural effusion which seems to be adequately drained at this point in time. On today's evaluation of 04/16/2023, the patient is being seen for a follow-up. He is doing well. No specific complaints. I repeated the chest x-ray earlier this morning and there was no evidence of any pneumothorax. No evidence of any air leak and I took the opportunity to remove the Thora vent from his left lung. He remained stable and the patient is currently on 2 L of oxygen by nasal cannula with a pulse ox of 96%. Denies having any specific complaints. He has chronic kidney disease and the patient is being monitored by nephrology. Hemoglobin today is at 6.78 the patient does not have any acute signs of GI bleeding. The patient had also a potassium level of 5.4. The patient was seen by nephrology and the patient will be given another dose of Lokelma 10 g and the patient is still maintained on Lasix 40 mg p.o. twice a day. Bronchodilators still being given in the form of DuoNeb nebulized treatments [id number] 4 times a day. The patient is on Aranesp. The patient is also scheduled to receive unit of packed RBC today. Objective - Vital Signs Vital signs: Vital Signs Temp 97.7 F 04/16/23 07:31 Pulse 72 04/16/23 09:21 Resp 19 04/16/23 07:31 BP 102/39 04/16/23 07:31 Pulse Ox 93 L 04/16/23 07:31 FiO2 Intake & Output 04/15/23 04/16/23 04/16/23 18:59 06:59 18:59 Intake Total 460 Output Total 375 150 325 Balance 85 -150 -325 Weight 133 kg Intake: Oral 460 Output: Chest Tube Drainage 175 Thora-Vent Left Anterior 175 Chest Urine 200 150 325 Other: Voiding Method Indwelling Catheter Indwelling Catheter # Voids 1 - Exam GENERAL EXAM: Alert, pleasant 87-year-old male, resting comfortably in bed, on room air oxygen for now HEAD: Normocephalic and atraumatic EYES: Normal reaction of pupils, equal size. NOSE: Clear with pink turbinates. THROAT: Mild erythema, no exudates NECK: No masses, no JVD. CHEST: No chest wall deformity. LUNGS: Equal air entry with right basilar inspiratory crackles. Diminished in the left lung base. The patient has a left-sided Thora vent attached to a Pleur-evac with no evidence of any air leak and the output is minimal CVS: S1 and S2 normal with no audible murmur, regular rhythm. No extra heart sounds ABDOMEN: No hepatosplenomegaly, active bowel sounds, no guarding or rigidity. SPINE: No scoliosis or deformity SKIN: No rashes CENTRAL NERVOUS SYSTEM: No focal deficits, tone is normal in all 4 extremities. EXTREMITIES: There is moderate bilateral lower extremity nonpitting edema. No clubbing, or cyanosis. Peripheral pulses are intact. - Labs CBC & Chem 7: 04/16/23 05:01 04/16/23 05:01 Labs: Abnormal Lab Results - Last 24 Hours (Table) 04/16/23 04/16/23 Range/Units 05:01 05:01 RBC 2.18 L (4.40-5.60) X 10*6/uL Hgb 6.7 A* (13.0-17.0) g/dL Hct 21.1 L (39.6-50.0) % MCHC 31.8 L (32.0-37.0) g/dL RDW 14.9 H (11.5-14.5) % Lymphocytes # (Manual) 0.41 L (0.90-5.00) X 10*3/uL Eosinophils # (Manual) 0.49 H (0.04-0.35) X 10*3/uL Sodium 133 L (135-145) mmol/L Chloride 92 L (96-109) mmol/L Anion Gap 14.50 H (4.00-12.00) mmol/L BUN 138.0 A* (9.0-27.0) mg/dL Creatinine 4.5 H (0.6-1.5) mg/dL Est GFR (CKD-EPI) 12 L (>=60) BUN/Creatinine Ratio 30.67 H (12.00-20.00) Ratio Assessment and Plan Plan: Acute hypoxemic respiratory failure, secondary to acute systolic CHF exacerba tion and fluid overload. Chest x-ray shows cardiomegaly, pulmonary vascular congestion, and interstitial edema. Patient also has moderate to large left- sided pleural effusion and a small right pleural effusion. NT proBNP was elevated at 57,800. Status post left-sided thoracentesis April 05, 2023 with 1.4 L of straw-colored fluid removed. Fluid analysis transudate, cytology for malignancy. CT scan of the chest and follow-up chest x-ray reveals stable hydropneumothorax of approximately 15 to 20%. Chest x-ray today April 10, 2023 shows significant reaccumulation of fluid in the left chest. Ultrasound reveals a recurrent left pleural effusion measuring 10.4 cm. A second thoracentesis was performed April 11, 2023 with 1.2 L of fluid removed. For now, the patient has a Thora vent and additional 800 cc of fluid was drained through the Thora vent since insertion. For now, the repeat chest x-ray today shows no evidence of any pneumothorax and minimal residual effusion in the left lung base. The Thora vent was removed on 04/16/2023 and repeat chest x-ray to be done tomorrow. left-sided pneumothorax post procedure,, recovered and the Thora vent was removed on 04/16/2023 early in the morning. No respiratory distress at this point in time. Systolic heart failure with ejection fraction of 30 to 35% Moderate to severe aortic stenosis Moderate mitral regurgitation Acute on chronic kidney disease, creatinine is stable at 4.5 Severe hyperkalemia, improved Lactic acidosis, improved Chronic obstructive pulmonary disease, stable History of paroxysmal atrial fibrillation, currently on no anticoagulants Benign prostatic hyperplasia Anemia of chronic disease, patient reportedly received 1 unit PRBC at [facility], current hemoglobin at 6.7 Erosive esophagitis and gastritis Plan: Clinically stable without any significant respiratory distress Due to Thora vent was removed earlier this morning Repeat chest x-ray in the morning Patient is currently on 2 L of O2 nasal cannula Monitor renal function Continue Lasix 40 mg p.o. twice a day Monitor renal function Gave unit of packed RBC for hemoglobin of 6.7 Placed the anticoagulation on hold due to concerns of GI bleed We will continue to follow
[2023-04-16 21:10] LABS: Anisocytosis Slight; Basophils % (A) 0 %; Eosinophils # (A) 0.3 k/uL (0-0.7); Eosinophils % (A) 4 %; HCT 26.3 % (39.0-53.0); HGB 8.3 gm/dL (13.0-17.5); Hypochromasia Slight; Lymphocytes # (A) 0.8 k/uL (1.0-4.8); Lymphocytes % (A) 11 %; MCHC 31.6 g/dL (31.0-37.0); Macrocytosis Slight; Mean Platelet Volume 9.7; Monocytes # (A) 0.4 k/uL (0-1.0); Monocytes % (A) 7 %; Neutrophils % (A) 75 %; Platelet Count 174 k/uL (150-450); RBC 2.68 m/uL (4.30-5.90); RDW 16.7 % (11.5-15.5); WBC 6.6 k/uL (3.8-10.6)
--- NOTE | 2023-04-17 10:41 | P.PN ---
Subjective Patient is seen in follow-up for acute kidney injury on chronic kidney disease. Renal function fairly stable as of yesterday. On po Lasix. Nonoliguric. On nasal cannula. Denies chest pain or shortness of breath. Denies any active bleeding. Received unit of blood yesterday. Hemoglobin better. Vital signs are stable. General: No acute distress. HEENT: Head exam is unremarkable. LUNGS: No acute distress. HEART: Rate and Rhythm are regular. ABDOMEN: Nontender. EXTREMITITES: No edema. Objective - Vital Signs Vital signs: Vital Signs Temp 97.2 F L 04/17/23 07:15 Pulse 70 04/17/23 09:38 Resp 17 04/17/23 07:15 BP 93/38 04/17/23 07:15 Pulse Ox 96 04/17/23 09:33 FiO2 Intake & Output 04/16/23 04/17/23 04/17/23 18:59 06:59 18:59 Intake Total 360 358 Output Total 325 200 Balance 35 -200 358 Weight 67.5 kg Intake: Intake, IV Titration 50 Amount Desmopressin Acetate 28 50 mcg In Sodium Chloride 0. 9% 50 ml @ 200 mls/hr IVPB ONCE ONE Rx#: [id number] Oral 358 Blood Product 310 Rc As-1 Unit 310 [id number] Output: Urine 325 200 Other: Voiding Method Indwelling Catheter Indwelling Catheter - Labs CBC & Chem 7: 04/16/23 20:52 04/16/23 05:01 Labs: Abnormal Lab Results - Last 24 Hours (Table) 04/16/23 04/16/23 04/16/23 Range/Units 05:01 11:14 20:52 RBC 2.68 L (4.30-5.90) m/uL Hgb 8.3 L (13.0-17.5) gm/dL Hct 26.3 L (39.0-53.0) % RDW 16.7 H (11.5-15.5) % Lymphocytes # 0.8 L (1.0-4.8) k/uL Lymphocytes # (Manual) 0.41 L (0.90-5.00) X 10*3/uL Eosinophils # (Manual) 0.49 H (0.04-0.35) X 10*3/uL Crossmatch See Detail Assessment and Plan Plan: Assessment: 1. Acute kidney injury secondary to ATN secondary to cardiorenal syndrome, anemia and urinary retention. Creatinine up to 4.5 yesterday. No hydronephrosis noted on kidney ultrasound. Elevated BUN due to acute kidney injury and also GI bleed. 2. Chronic kidney disease stage IV with baseline creatinine near 3 secondary to nephrosclerosis and obstructive uropathy. 3. Hyperkalemia secondary to acute kidney injury, acidosis and urinary retention. Also component of GI bleed. Improved with medical management. 4. Volume overload with pleural effusions. Improved with diuresis. 5. Acute blood loss anemia status post blood transfusion this admission. EGD done this admission showed acute on chronic gastritis with bleeding. Colonoscopy pending. On Aranesp. Status post blood transfusion and IV DDAVP this admission. 6. Acute on chronic systolic CHF ejection fraction of 30 to 35% with moderate mitral and tricuspid regurgitation. 7. Metabolic acidosis secondary to acute kidney injury s/p bicarb drip. 8. Urinary retention status post Riley catheter placement. On Flomax. Plan: Maintain oral Lasix. Follow-up morning labs. Avoid nephrotoxins. Add midodrine. Hold for systolic blood pressure greater than 110. Continue to monitor renal function and urine output. Continue to assess daily for need for renal replacement therapy. No urgency at this time. Patient is a poor candidate for renal replacement therapy.
[2023-04-17] MEDS: MIDODRINE 5 MG TAB PO SCH (11:33)
[2023-04-17 11:36] LABS: Basophils # (A) 0.02 X 10*3/uL (0.00-0.10); Basophils % (A) 0.3 %; Eosinophils # (A) 0.46 X 10*3/uL (0.04-0.35); Eosinophils % (A) 6.4 %; HCT 23.9 % (39.6-50.0); HGB 7.9 g/dL (13.0-17.0); Lymphocytes # (A) 0.99 X 10*3/uL (0.90-5.00); Lymphocytes % (A) 13.7 %; MCH 30.7 pg (27.0-32.0); MCHC 33.1 g/dL (32.0-37.0); Mean Platelet Volume 12.4 FL (9.5-12.2); Monocytes # (A) 0.78 X 10*3/uL (0.20-1.00); Monocytes % (A) 10.8 %; NRBC Per 100 WBC 0 X 10*3/uL (0.00-0.01); Neutrophils # (A) 4.94 X 10*3/uL (1.80-7.70); Neutrophils % (A) 68.4 %; Platelet Count 195 X 10*3/uL (140-440); RBC 2.57 X 10*6/uL (4.40-5.60); RDW 16.3 % (11.5-14.5); WBC 7.22 X 10*3/uL (4.50-10.00)
--- NOTE | 2023-04-17 11:50 | XR ---
EXAMINATION TYPE: XR chest 1V portable DATE OF EXAM: 04/17/2023 6:54 AM CLINICAL INDICATION:Male, 87 years old with history of status post thoravent removal; [facility] COMPARISON: Chest radiographs from and 06/11/2023 TECHNIQUE: XR chest 1V portable Frontal view of the chest. FINDINGS: Lungs/Pleura: There is no evidence of pleural effusion, focal consolidation, or pneumothorax. Pulmonary vascularity: Unremarkable. Heart/mediastinum: Cardiomediastinal silhouette is enlarged and stable. Atherosclerotic calcificatio ns are seen in the aorta. Musculoskeletal: No acute osseous pathology. Other findings: Subcutaneous emphysema scattered throughout the left axilla/left chest wall. The left chest tube removed. IMPRESSION: Interval removal of left thoracotomy tube, no appreciable pneumothorax.
[2023-04-17 11:53] LABS: Magnesium 2.2 mg/dL (1.5-2.4)
[2023-04-17 12:49] LABS: Carbon Dioxide 25.4 mmol/L (21.6-31.8); Chloride 92 mmol/L (96-109); Glucose 88 mg/dL (70-110); Potassium 5.8 mmol/L (3.5-5.5); Sodium 132 mmol/L (135-145)
--- NOTE | 2023-04-17 14:41 | P.PN ---
Subjective Progress Note Date: 04/17/23 CHIEF COMPLAINT: Anemia HISTORY OF PRESENT ILLNESS: Patient presented with anemia and GI bleed. Status post EGD revealing erosive esophagitis and acute gastritis with bleeding. Patient had a left pneumothorax and had a Thora vent placed. Patient is Thora vent removed yesterday. Chest x-ray reporting no pneumothorax today. Patient denies any abdominal pain. Denies any nausea or vomiting. He is having bowel movements. Reports no blood in the stools. Patient does report having some mild sticking of food when he is swallowing. Afebrile. on 3 liters oxygen satting at 96%. hemoglobin 7.9 potassium 5.8 Cr increased 5.0 PHYSICAL EXAM: VITAL SIGNS: Reviewed GENERAL: Well-developed in no acute distress. HEENT: No sclera icterus. Extraocular movements grossly intact. Moist buccal mucosa. Head is atraumatic, normocephalic. Hears conversational speech. No nasal drainage. NECK: Supple without lymphadenopathy. CHEST: Non-labored respirations and equal bilateral excursions. CARDIOVASCULAR: Palpable 2+ radial pulses. ABDOMEN: Soft. Nondistended. Nontender. MUSCULOSKELETAL: No clubbing or cyanosis. NEUROLOGIC: No focal or lateralizing signs. Cranial nerves II through XII grossly intact. PSYCH: Appropriate affect. Alert and oriented to person, place and time. SKIN: Well perfused. Good skin turgor. ASSESSMENT: 1. Anemia status post EGD with acute gastritis with bleeding and erosive esophagitis 2. Left pneumothorax status post left-sided Thora vent and removal 3. History of left pleural effusion status post left-sided thoracentesis 4. Acute on chronic kidney disease 5. Atrial fibrillation 6. Severe aortic stenosis 7. Dysphagia PLAN: -Patient scheduled for EGD with dilation and colonoscopy on 04/20/[address] Dueñas if medically stable -Continue to medically optimize patient -Continue to monitor hemoglobin -Continue to monitor for any signs or symptoms of bleeding -Continue IV Protonix -Continue to hold Eliquis -Continue dysphagia chopped diet as recommended per speech therapist -Hyperkalemia management per nephrology Physician Signal Constructor note has been reviewed by physician. Signing provider agrees with the documented findings, assessment, and plan of care. CHIEF COMPLAINT: GI bleed HISTORY OF PRESENT ILLNESS: The patient is a 87 year old male with dysphagia and anemia. No reports of blood in stools. He reports persistent dysphagia. Received blood transfusions. REVIEW OF ORGAN SYSTEMS: No fevers or chills. No nausea or vomiting. No shortness of breath. PHYSICAL EXAM: VITALS: Reviewed CONSTITUTIONAL: Well developed and in no acute distress. EYES: Conjuctivae without sclera icterus. Extraocular movements grossly intact. HEAD, EARS, NOSE, THROAT: Moist buccal mucosa. Head is atraumatic, normocephalic. Hears conversational speech. No nasal drainage. RESPIRATORY: Non-labored respirations and equal bilateral excursions. No gross wheezes. CARDIOVASCULAR: Palpable 2+ radial pulses. ABDOMEN: No abdominal pain. MUSCULOSKELETAL: No clubbing cyanosis or edema SKIN: Warm and well perfused with good skin turgor. NEUROLOGIC: Cranial nerves II through XII grossly intact. No focal or lateralizing signs. PSYCH: Appropriate affect. Alert and oriented to person, place and time. CLINCAL LABS: Reviewed. Hemoglobin up 6.7-7.9. ASSESSMENT: 1. Anemia 2. GI bleed 3. Acute on chronic kidney failure 4. Atrial fibrillation 5. Ischemic cardiomyopathy 6. Chronic obstructive pulmonary disease 7. Pneumothorax 8. Dysphagia PLAN: 1. Upper endoscopy with dilation advised for dysphagia 2. Colonoscopy advised for further workup for anemia 3. Recommend medical optimization prior to upper and lower endoscopy Objective - Vital Signs Vital signs: Vital Signs Temp 97.2 F L 04/17/23 07:15 Pulse 70 04/17/23 09:38 Resp 17 04/17/23 07:15 BP 93/38 04/17/23 07:15 Pulse Ox 96 04/17/23 09:33 FiO2 Intake & Output 04/16/23 04/17/23 04/17/23 18:59 06:59 18:59 Intake Total 360 358 Output Total 325 200 580 Balance 35 -200 -222 Weight 67.5 kg Intake: Intake, IV Titration 50 Amount Desmopressin Acetate 28 50 mcg In Sodium Chloride 0. 9% 50 ml @ 200 mls/hr IVPB ONCE ONE Rx#: [id number] Oral 358 Blood Product 310 Rc As-1 Unit 310 [id number] Output: Urine 325 200 580 Other: Voiding Method Indwelling Catheter Indwelling Catheter Indwelling Catheter - Labs CBC & Chem 7: 04/27/23 05:45 04/27/23 05:45 Labs: Abnormal Lab Results - Last 24 Hours (Table) 02/29/24 02/29/24 03/01/24 Range/Units 11:14 20:52 06:32 RBC 2.68 L 2.57 L (4.30-5.90) m/uL Hgb 8.3 L 7.9 L (13.0-17.5) gm/dL Hct 26.3 L 23.9 L (39.0-53.0) % RDW 16.7 H 16.3 H (11.5-15.5) % MPV 12.4 H (9.5-12.2) FL Lymphocytes # 0.8 L (1.0-4.8) k/uL Eosinophils # 0.46 H (0.04-0.35) X 10*3/uL Sodium (135-145) mmol/L Potassium (3.5-5.5) mmol/L Chloride (96-109) mmol/L Anion Gap (4.00-12.00) mmol/L BUN (9.0-27.0) mg/dL Creatinine (0.6-1.5) mg/dL Est GFR (CKD-EPI) (>=60) BUN/Creatinine Ratio (12.00-20.00) Ratio Crossmatch See Detail 04/17/23 Range/Units 06:32 RBC (4.30-5.90) m/uL Hgb (13.0-17.5) gm/dL Hct (39.0-53.0) % RDW (11.5-15.5) % MPV (9.5-12.2) FL Lymphocytes # (1.0-4.8) k/uL Eosinophils # (0.04-0.35) X 10*3/uL Sodium 132 L (135-145) mmol/L Potassium 5.8 H (3.5-5.5) mmol/L Chloride 92 L (96-109) mmol/L Anion Gap 14.60 H (4.00-12.00) mmol/L BUN 143.0 A* (9.0-27.0) mg/dL Creatinine 5.0 H (0.6-1.5) mg/dL Est GFR (CKD-EPI) 11 L (>=60) BUN/Creatinine Ratio 28.60 H (12.00-20.00) Ratio Crossmatch
[2023-04-17] MEDS: INSULIN REGULAR 100 UNIT/ML VIAL (IV) IV ONE ×2 (15:47→22:14)
[2023-04-17] MEDS: DEXTROSE 50% SYRINGE 50 ML IVP STA ×2 (15:47→22:14)
[2023-04-17] MEDS: SODIUM ZIRCONIUM CYCLOSILICATE 10 GM PACKET PO ONE ×2 (15:47→22:15)
--- NOTE | 2023-04-17 16:27 | P.PN ---
Subjective Progress Note Date: 04/17/23 I am seeing this patient in consultation today 04/02/2023 for dyspnea and left- sided pleural effusion. He is currently in the emergency room. He was transferred from [facility] late last night for severe hyperkalemia and acute kidney injury. Patient is a 87-year-old white male with past medical history significant for chronic kidney disease, congestive heart failure, atrial fibrillation anticoagulated on Eliquis, hyperlipidemia, COPD, and BPH. Patient is technically a poor historian. Apparently, he is complaining of shortness of breath, weakness and sore throat over the last several days. This progressively worsened, and he went into [facility] to be evaluated. Patient was found to be severely hyperkalemic. He was also found to be anemic and was transfused 1 unit PRBC. He was transferred to [facility]. Patient is currently resting in bed, on 2 L/min nasal cannula, in no acute distress. He is weak and cannot sit up in bed without assistance. Becomes short of breath with any kind of activity. He denies any chest pain, heart palpitations, or syncopal events. He does have bilateral lower extremity swelling. He has an occasional nonproductive cough. Denies any sputum production, fevers. Chest x-ray on arrival shows cardiomegaly, pulmonary vasc ular congestion, and interstitial edema. There is a moderate to large left- sided pleural effusion and small right pleural effusion.. Patient was given 60 mg of IV Lasix. A Riley catheter was inserted, and the patient has approximately 800 mL of concentrated urine. Patient states that earlier in the week he has had troubles urinating. He voids about 2-3 times per day. Endorses dysuria. Denies any hematuria, urinary frequency. Urinalysis on arrival not concerning for UTI. Trace protein. He does have baseline chronic kidney disease. Ultrasound of the abdomen and bladder did not show any hydronephrosis. Potassium level on arrival was elevated at 8.4 and is down to 5 point 3:06 amp sodium bicarb, 10 g Lokelma, 10 units insulin, 2 A D50 W, calcium gluconate, and the above-mentioned Lasix. Nephrology has been consulted. There is D5W with 3 amp sodium bicarb infusing at 50 MLS per hour. BMP on arrival has a sodium 138, testing 8.4, chloride 108, serum bicarb 18, BUN 74, creatinine 3.68, and glucose 85. Lactic acid level was 3.8 on arrival and is down to 1.6. Troponin less th an 0.012. NT proBNP 57,800. ECG shows normal sinus rhythm with chronic left bundle branch block without any obvious hyperkalemic changes. CBC on arrival: WBC count 8.4, hemoglobin 10.7, hematocrit 34, platelets 121. Group A strep negative. No signs of bleeding. Patient has chronic anemia. Patient denies any acute blood loss. No bloody bowel movements, melena, hematemesis. No abdominal pain or diarrhea. Vital signs are stable. The patient is seen today April 03, 2023 in follow-up in the emergency department. He is currently sitting up on the stretcher. Awake and alert in no acute distress. He is breathing a bit easier today compared to yesterday. He states he is about 50% better. He is still somewhat bronchospastic and wheezing. White count 8.6. Hemoglobin 8.1. Platelets 127. Sodium 139. Potassium 5.0. BUN 89. Creatinine 4.02. Glucose 118. He is continued on IV diuretics. Anticoagulated with Eliquis. Continued on bronchodilators. Currently in a -1.2 L balance. Making good urine. The patient is seen today April 04, 2023 in follow-up on the regular medical floor. He is awake and alert in no acute distress. Resting fairly comfortably in bed. Denies any worsening shortness of breath, cough or congestion. He is maintaining O2 saturation in the 90s on 2 L/min per nasal cannula. Chest x-ray does reveal increasing left pleural effusion and a right-sided pleural effusion. Echocardiogram confirms a right-sided pleural effusion measuring 11.9 cm, left- sided pleural effusion at 10.8 cm. The patient is currently on Eliquis this will be placed on hold for possible left-sided thoracentesis tomorrow. Count 9.0. Hemoglobin 7.8. Platelets 140. Sodium 140. Potassium 4.8. Bicarb 28. BUN 87. Creatinine 4.1. Glucose 88. He remains on Lasix 60 mg IV twice a day. Currently net -1.5 L balance The patient is seen today April 05, 2023 in follow-up on the regular medical floor. He is currently sitting up in bed. Awake and alert in no acute distress. He is maintaining O2 saturations in the 90s 2 L/min per nasal cannula. He is been afebrile. Hemodynamically stable. He did undergo a left- sided thoracentesis today with 1.4 L of straw-colored fluid removed. Fluid sent for analysis and cytology. Follow-up chest x-ray reveals a tiny left apical pneumothorax. Sodium 137. Potassium 4.1. Bicarb 31. BUN 97. Creatinine 3.86. Glucose 101. Remains on IV diuretics. Currently in a -2.8 L balance. The patient is seen today April 06, 2023 in follow-up on the regular medical floor. He is awake and alert no acute distress. He is resting comfortably in bed. He is maintaining good O2 saturations in the 90s on 2 L/min per nasal cannula. He remains on IV diuretics. Currently net -2.7 L balance. He is status post left-sided thoracentesis yesterday with 1.4 L of straw-colored fluid removed. Cytology pending. Fluid analysis transudate with a total protein of 2.6 and an LDH of 80. Today's chest x-ray shows small bilateral effusions. No evidence of pneumothorax. Count 8.7. Hemoglobin 7.7. Platelets 139. Sodium 139. Potassium 4.2. Bicarb 29. BUN 91. Creatinine 4.0. The patient is seen today April 07, 2023 in follow-up on the regular medical floor. He is resting comfortably in bed. Awake and alert in no acute distress. Maintaining O2 saturations in the 90s on 2 L/min per nasal cannula. He is con tinued on bronchodilators and oral diuretics. Currently net -1.2 L balance. Follow-up chest x-ray revealed creasing consolidation and pleural effusion on the left. Likely represents a hydropneumothorax of approximately 5 to 10% pneumothorax noted. No significant change. The patient is seen today April 08, 2023 in follow-up on the regular medical floor. He is awake and alert in no acute distress. Maintaining O2 saturations in the 90s on 2 L/min per nasal cannula. Laying in bed. CT scan of the chest revealed moderate-sized bilateral pleural effusions. Left effusion appears loculated and there is additionally a left anterior pneumothorax at approximately 15 to 20%. Consolidation and partial collapse of the left lung. Atelectasis in the right posterior lung. Pleural fluid cultures revealed no growth, no malignancy. No plans for chest tube placement. Eliquis has been resumed. White count 8.5. Hemoglobin 7.7. Platelets 146. Sodium 139. Potassium 3.9. Bicarb 29. BUN 96. Creatinine 3.9. The patient is seen today April 09, 2023 in follow-up on the regular medical floor. He is resting comfortably in bed. Awake and alert in no acute distress. Maintaining O2 saturations in the 90s on 2 L/min per nasal cannula. He denies any worsening shortness of breath, cough or congestion. No new labs today. No chest x-ray today. He is anticoagulated with Eliquis. The patient is seen today April 10, 2023 in follow-up on the regular medical floor. He is awake and alert in no acute distress. Resting fairly comfortably in bed. Today's chest x-ray shows reaccumulation of fluid in the left chest. He is currently on DuoNeb inhalation, Pulmicort inhalations. Remains on oral diuretics. No new labs today. Pleural fluid cultures revealed no growth. He is anticoagulated with Eliquis. The patient is seen today April 11, 2023 in follow-up on the regular medical floor. He is sitting up in bed. Awake and alert in no acute distress. Maintaining O2 saturations in the 90s on 2 L/min per nasal cannula. Sodium 134. Potassium 4.5. Bicarb 30. BUN 130. Creatinine 3.55. Glucose 88. Ultrasound of the chest did reveal a significant left-sided pleural effusion. He under went a second thoracentesis today with 1.2 L of dark yellow fluid removed. Unfortunately, follow-up chest x-ray does reveal a moderate to large left pneumothorax. The patient remains asymptomatic. Repeat chest x-ray pending. He remains on bronchodilators. Remains on oral diuretics. Plan a -1.1 L balance. The patient is seen today April 12, 2023 in follow-up on the regular medical floor. He is awake and alert in no acute distress. Maintaining O2 saturations in the 90s on 2 L/min per nasal cannula. He denies any worsening shortness of breath, cough or congestion. Denies any chest pain. Follow-up chest x-ray continues to show a left apical hydropneumothorax. Slight improvement today compared to yesterday. Pleural fluid cultures revealed no growth. White count 6.5. Hemoglobin 7.6. Platelets 186. Stool for occult blood was positive. He is continued on bronchodilators. Continued on diuretics. Currently in a -700 mL balance. On today's evaluation of 04/13/2023, the patient is being seen for a follow-up. Noted the patient has an acute hypoxic respiratory failure due to CHF and bilateral pleural effusion. Noted the patient had a large left-sided pleural effusion and a small right-sided pleural effusion. His proBNP level was elevated. He underwent a left thoracentesis on 04/05/2023 with a total of 1.4 L of fluid removed that was transudative. Subsequent CAT scan of the chest showed a 15 to 20% pneumothorax. Chest x-ray on 04/10/2023 showed significant recommendation of the left-sided pleural effusion and at the same time there was a persistent pneumothorax on the left. The patient underwent another thoracentesis on 04/11/2023 with a total of 1.2 L of fluid was removed. I reviewed the chest x-ray from today and there is a large stable left-sided hydropneumothorax. Based on that, I inserted the Thora vent in this patient and immediately around 600 cc of pleural fluid was drained in addition to air. The follow-up chest x-ray that was done showed decrease in the left-sided pneumothorax and the thoracostomy tube is in place and attached to suction with persistent air leak. The patient remains clinically and hemodynamically stable on 2 L of oxygen by nasal cannula with a pulse ox of 98%. The patient remains on [facility], on p.o. Lasix 40 mg twice a day. The patient is also on metoprolol 12.5 mg p.o. daily. His echocardiogram that was done on 04/02/2023 showed a left-ventricular ejection fraction of around 30 to 35% along with biatrial enlargement and moderate MR and moderate aortic stenosis/severe aortic stenosis. Moderate degree of tricuspid regurgitation was also present. On today's evaluation of 04/14/2023, I am seeing the patient for a follow- up.Patient has no specific complaints. The Thora vent is still in place and attached to suction. The total amount of output in terms of fluid from the left lung was in the order of 800 cc from yesterday. There is no persistent air leak. I am ordering a urgent chest x-ray to follow-up on the pneumothorax. Otherwise, the patient has no specific complaints. The patient is still on Lasix 40 mg p.o. twice a day. Rest of the medications are essentially unchan ged. Labs from today shows a sodium level of 135, potassium of 5.2, BUN is 124 with a creatinine of 4.1 and a potassium level is at 5.2. Echocardiogram is showing impaired LV function with an ejection fraction of 35% with moderate MR, severe aortic stenosis and bilateral atrial enlargement. The patient is having some fecal occult blood positive and the patient was taken off anticoagulation for now. EGD EGD that was done on 04/13/2023 showed erosive esophagitis and gastritis. On today's evaluation of 04/15/2023, the patient is able to sit up in a chair. He is calm and comfortable. The output from the left sided Thora vent has improved and the fluid output has dropped significantly over the past 24 hours. Repeat chest x-ray was done and the patient continues to have a very trace left apical pneumothorax. There is also some limited subcutaneous emphysema. Overall, the patient is doing well. No significant respiratory distress and the patient was transitioned to room air oxygen with a pulse ox of 94%. The patient is currently on Lasix 40 mg p.o. twice a day. He is on DuoNeb nebulized treatments [id number]. Renal function is being monitored. BUN is at 131 with a creatinine of 4.4 and sodium levels at 134. The WBC count of 8.4 with a hemoglobin of 7.2. Note that the total vent is still faster suction. There is no evidence of any air leak. Suction is being applied in regards to his left- sided pleural effusion which seems to be adequately drained at this point in time. On today's evaluation of 04/16/2023, the patient is being seen for a follow-up. He is doing well. No specific complaints. I repeated the chest x-ray earlier this morning and there was no evidence of any pneumothorax. No evidence of any air leak and I took the opportunity to remove the Thora vent from his left lung. He remained stable and the patient is currently on 2 L of oxygen by nasal cannula with a pulse ox of 96%. Denies having any specific complaints. He has chronic kidney disease and the patient is being monitored by nephrology. Hemoglobin today is at 6.78 the patient does not have any acute signs of GI bleeding. The patient had also a potassium level of 5.4. The patient was seen by nephrology and the patient will be given another dose of Lokelma 10 g and the patient is still maintained on Lasix 40 mg p.o. twice a day. Bronchodilators still being given in the form of DuoNeb nebulized treatments [id number] 4 times a day. The patient is on Aranesp. The patient is also scheduled to receive unit of packed RBC today. On today's evaluation of 04/17/2023, the patient respite status is stable and the patient is currently on 3 L O2 nasal cannula With a pulse ox of 97%. A repeat chest x-ray was done today and shows no evidence of any pneumothorax. The pat ient has developed a small left-sided pleural effusion. Otherwise, the patient is stable. Hemoglobin is at 7.9 with a white cell count of 7. Sodium level is at 132 with a potassium level of 5.8. The BUN is up to 143 with a creatinine of 5.0 as the patient has an acute on top of chronic kidney failure. His creatinine has been steadily on the rise. Nephrology on the case for now. Patient remains on Lasix 40 mg p.o. twice a day. Objective - Vital Signs Vital signs: Vital Signs Temp 97.2 F L 04/17/23 07:15 Pulse 70 04/17/23 09:38 Resp 17 04/17/23 07:15 BP 93/38 04/17/23 07:15 Pulse Ox 96 04/17/23 09:33 FiO2 Intake & Output 04/16/23 04/17/23 04/17/23 18:59 06:59 18:59 Intake Total 360 358 Output Total 325 200 580 Balance 35 -200 -222 Weight 67.5 kg Intake: Intake, IV Titration 50 Amount Desmopressin Acetate 28 50 mcg In Sodium Chloride 0. 9% 50 ml @ 200 mls/hr IVPB ONCE ONE Rx#: [id number] Oral 358 Blood Product 310 Rc As-1 Unit 310 [id number] Output: Urine 325 200 580 Other: Voiding Method Indwelling Catheter Indwelling Catheter - Exam GENERAL EXAM: Alert, pleasant 87-year-old male, resting comfortably in bed, on room air oxygen for now HEAD: Normocephalic and atraumatic EYES: Normal reaction of pupils, equal size. NOSE: Clear with pink turbinates. THROAT: Mild erythema, no exudates NECK: No masses, no JVD. CHEST: No chest wall deformity. LUNGS: Equal air entry with right basilar inspiratory crackles. Diminished in the left lung base. The patient has a left-sided Thora vent attached to a Pleur-evac with no evidence of any air leak and the output is minimal CVS: S1 and S2 normal with no audible murmur, regular rhythm. No extra heart sounds ABDOMEN: No hepatosplenomegaly, active bowel sounds, no guarding or rigidity. SPINE: No scoliosis or deformity SKIN: No rashes CENTRAL NERVOUS SYSTEM: No focal deficits, tone is normal in all 4 extremities. EXTREMITIES: There is moderate bilateral lower extremity nonpitting edema. No clubbing, or cyanosis. Peripheral pulses are intact. - Labs CBC & Chem 7: 04/17/23 06:32 04/17/23 06:32 Labs: Abnormal Lab Results - Last 24 Hours (Table) 04/16/23 04/16/23 04/16/23 Range/Units 05:01 11:14 20:52 RBC 2.68 L (4.30-5.90) m/uL Hgb 8.3 L (13.0-17.5) gm/dL Hct 26.3 L (39.0-53.0) % RDW 16.7 H (11.5-15.5) % Lymphocytes # 0.8 L (1.0-4.8) k/uL Lymphocytes # (Manual) 0.41 L (0.90-5.00) X 10*3/uL Eosinophils # (Manual) 0.49 H (0.04-0.35) X 10*3/uL Crossmatch See Detail Assessment and Plan Plan: Acute hypoxemic respiratory failure, secondary to acute systolic CHF exacerbation and fluid overload. Chest x-ray shows cardiomegaly, pulmonary vascular congestion, and interstitial edema. Patient also has moderate to large left-sided pleural effusion and a small right pleural effusion. NT proBNP was elevated at 57,800. Status post left-sided thoracentesis April 05, 2023 with 1.4 L of straw-colored fluid removed. Fluid analysis transudate, cytology for malignancy. CT scan of the chest and follow-up chest x-ray reveals stable hydropneumothorax of approximately 15 to 20%. Chest x-ray today April 10, 2023 shows significant reaccumulation of fluid in the left chest. Ultrasound reveals a recurrent left pleural effusion measuring 10.4 cm. A second thoracentesis was performed April 11, 2023 with 1.2 L of fluid removed. For now, the patient has a Thora vent and additional 800 cc of fluid was drained through the Thora vent since insertion. For now, the repeat chest x-ray today shows no evidence of any pneumothorax and minimal residual effusion in the left lung base. The Thora vent was removed on 04/16/2023 and repeat chest x-ray on 04/17/2023 shows no evidence of any pneumothorax left-sided pneumothorax post procedure,, recovered and the Thora vent was removed on 04/16/2023 and there is no residual pneumothorax on subsequent chest x-ray that was done today Systolic heart failure with ejection fraction of 30 to 35% Moderate to severe aortic stenosis Moderate mitral regurgitation Acute on chronic kidney disease, creatinine is on the rise in the creatinine from today is at 5.0 Severe hyperkalemia, improved Lactic acidosis, improved Chronic obstructive pulmonary disease, stable History of paroxysmal atrial fibrillation, currently on no anticoagulants Benign prostatic hyperplasia Anemia of chronic disease, patient reportedly received 1 unit PRBC at [facility], current hemoglobin at is at 7.9 Erosive esophagitis and gastritis Plan: Nephrology to monitor renal function. The patient has developed an acute on top of his chronic kidney failure and the creatinine is up to 5.0. Repeat chest x-ray shows a small left-sided pleural effusion without any evidence of pneumothorax Patient is currently on 2 L of O2 nasal cannula Monitor renal function Continue Lasix 40 mg p.o. twice a day Monitor renal function Hemoglobin is stable and there is no evidence of any GI bleed Placed the anticoagulation on hold due to concerns of GI bleed We will continue to follow
[2023-04-17] MEDS: SODIUM BICARB 8.4% 50 ML SYR (1 MEQ/ML) IV STA (22:14)
[2023-04-18 05:56] LABS: Glucose,Whole Blood 88 mg/dL (70-110)
--- NOTE | 2023-04-18 08:20 | P.GSCN ---
History of Present Illness History of present illness: 87-year-old gentleman consulted for placement of dialysis catheter. Patient has acute chronic renal failure with hyperkalemia. Will be scheduled for dialysis catheter placement and vascular complication discussed On examination neck is supple Chest few crackles the lung bases was a second sound present Abdomen soft nontender Vascular femorals are 1+ with mild swelling of both lower extremity Plan is placement dialysis catheter with clinical medication discussed Past Medical History Past Medical History: Atrial Fibrillation, Asthma, Heart Failure, COPD, GERD/Reflux, Hyperlipidemia, Prostate Disorder Additional Past Medical History / Comment(s): HYPOTENSION, PAST ANEMIA USED TO TAKE IRON SUPPLEMENTS, SEASONAL ALLERGIES, ENLARGED PROSTATE. GOUT. NEUROPATHY History of Any Multi-Drug Resistant Organisms: None Reported Past Surgical History: Hernia Repair, Orthopedic Surgery Additional Past Surgical History / Comment(s): FOOT SURG(.scraped bones- ancelmo 5th toes), cataracts- lens implants, [facility] HERNIA REPAIR W/MESH, broke neck with rep air Past Anesthesia/Blood Transfusion Reactions: No Reported Reaction Past Psychological History: No Psychological Hx Reported Smoking Status: Never smoker Past Alcohol Use History: Occasional Past Drug Use History: None Reported - Past Family History Brother(s) Family Medical History: Cancer, Coronary Artery Disease (CAD) Mother History Unknown: Yes Family Medical History: No Reported History Additional Family Medical History / Comment(s): " from natural causes" Father Additional Family Medical History / Comment(s): from black lung, 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 [place] Medications and Allergies Home Medications Medication Instructions Recorded Confirmed Type Montelukast [Singulair] 10 mg PO DAILY 07/30/15 04/02/23 History Tamsulosin HCl [Flomax] 0.4 mg PO DAILY 07/21/17 04/02/23 History Apixaban [Eliquis] 2.5 mg PO BID 08/28/22 04/02/23 History Lovastatin [Mevacor] 20 mg PO HS 08/28/22 04/02/23 History Albuterol Nebulized [Ventolin 2.5 mg INHALATION RT-Q6H PRN 04/02/23 04/02/23 History Nebulized] Budesonide [Pulmicort] 0.5 mg INHALATION RT-BID 04/02/23 04/02/23 History Folic Acid 1 mg PO DAILY 04/02/23 04/02/23 History Furosemide [Lasix] 20 mg PO DAILY 04/02/23 04/02/23 History Oxybutynin Chloride [oxyBUTYnin 10 mg PO BID 04/02/23 04/02/23 History chloride ER] allopurinoL [Zyloprim] 100 mg PO BID 04/02/23 04/02/23 History amLODIPine [Norvasc] 5 mg PO DAILY 04/02/23 04/02/23 History hydrALAZINE HCL [Apresoline] 25 mg PO BID 04/02/23 04/02/23 History Allergies Allergy/AdvReac Type Severity Reaction Status Date / Time prednisone Allergy Hallucinati Verified 04/02/23 08:03 ons Surgical - Exam Vital Signs Pulse Resp BP Pulse Ox 70 17 135/71 94 L 04/01/23 21:45 04/01/23 21:45 04/01/23 21:45 04/01/23 21:45 Results - Labs 04/17/23 06:32 04/18/23 01:16 Abnormal Lab Results - Last 24 Hours (Table) 04/17/23 04/17/23 04/17/23 Range/Units 06:32 06:32 20:42 RBC 2.57 L (4.40-5.60) X 10*6/uL Hgb 7.9 L (13.0-17.0) g/dL Hct 23.9 L (39.6-50.0) % RDW 16.3 H (11.5-14.5) % MPV 12.4 H (9.5-12.2) FL Eosinophils # 0.46 H (0.04-0.35) X 10*3/uL Sodium 132 L (135-145) mmol/L Potassium 5.8 H 5.9 H (3.5-5.5) mmol/L Chloride 92 L (96-109) mmol/L Anion Gap 14.60 H (4.00-12.00) mmol/L BUN 143.0 A* (9.0-27.0) mg/dL Creatinine 5.0 H (0.6-1.5) mg/dL Est GFR (CKD-EPI) 11 L (>=60) 04/18/23 Range/Units 01:16 RBC (4.40-5.60) X 10*6/uL Hgb (13.0-17.0) g/dL Hct (39.6-50.0) % RDW (11.5-14.5) % MPV (9.5-12.2) FL Eosinophils # (0.04-0.35) X 10*3/uL Sodium (135-145) mmol/L Potassium 5.3 H (3.5-5.5) mmol/L Chloride (96-109) mmol/L Anion Gap (4.00-12.00) mmol/L BUN (9.0-27.0) mg/dL Creatinine (0.6-1.5) mg/dL Est GFR (CKD-EPI) (>=60) Diabetes panel 04/17/23 04/17/23 04/18/23 Range/Units 06:32 20:42 01:16 Sodium 132 L (135-145) mmol/L Potassium 5.8 H 5.9 H 5.3 H (3.5-5.5) mmol/L Chloride 92 L (96-109) mmol/L Carbon Dioxide 25.4 (21.6-31.8) mmol/L BUN 143.0 A* (9.0-27.0) mg/dL Creatinine 5.0 H (0.6-1.5) mg/dL Glucose 88 (70-110) mg/dL Calcium 9.0 (8.7-10.3) mg/dL Calcium panel 04/17/23 Range/Units 06:32 Calcium 9.0 (8.7-10.3) mg/dL Pituitary panel 04/17/23 04/17/23 04/18/23 Range/Units 06:32 20:42 01:16 Sodium 132 L (135-145) mmol/L Potassium 5.8 H 5.9 H 5.3 H (3.5-5.5) mmol/L Chloride 92 L (96-109) mmol/L Carbon Dioxide 25.4 (21.6-31.8) mmol/L BUN 143.0 A* (9.0-27.0) mg/dL Creatinine 5.0 H (0.6-1.5) mg/dL Glucose 88 (70-110) mg/dL Calcium 9.0 (8.7-10.3) mg/dL Adrenal panel 04/17/23 04/17/23 04/18/23 Range/Units 06:32 20:42 01:16 Sodium 132 L (135-145) mmol/L Potassium 5.8 H 5.9 H 5.3 H (3.5-5.5) mmol/L Chloride 92 L (96-109) mmol/L Carbon Dioxide 25.4 (21.6-31.8) mmol/L BUN 143.0 A* (9.0-27.0) mg/dL Creatinine 5.0 H (0.6-1.5) mg/dL Glucose 88 (70-110) mg/dL Calcium 9.0 (8.7-10.3) mg/dL
[2023-04-18] MEDS: LIDOCAINE 1% INJ 10MG/ML (20 ML MDV) SQ ONE (08:37)
--- NOTE | 2023-04-18 08:40 | P.PN ---
Subjective Progress Note Date: 04/17/23 Patient is a 87-year-old white male with past medical history significant for chronic kidney disease, congestive heart failure, atrial fibrillation anticoagulated on Eliquis, hyperlipidemia, COPD, and BPH, who was transferred from [facility] for severe hyperkalemia and acute kidney injury. Patient has been complaining of shortness of breath and weakness for a few days. Patient also complaining of sore throat. Patient weakness and shortness of breath progressed so he eventually presented to [facility] where he was evaluated, patient was found to have elevated potassium levels of 8.4, patient was given hyperkalemia protocol and received sodium bicarb, Lokelma, insulin and dextrose. Chest x-ray done showed large left pleural effusion small right pleural effusion, patient was transferred to [facility]. Patient has been complaining of shortness of breath on exertion and rest. Denies any chest pain. There is complaint of swelling of lower extremities. Patient complaining of nonproductive cough. Denies any fevers or chills Patient admitted to internal medicine service 04/03. Patient seen and examined. 2D echo done showed LVEF of 35% with global hypokinesis, severe biatrial enlargement, moderate mitral regurg, severe aortic stenosis. 04/04. Patient seen and examined. States breathing is improving, still gets short of breath on exertion. 04/05. Patient seen and examined. Patient being planned for thoracentesis this morning with pulmonary medicine. States breathing is improved. Denies any nausea or vomiting 04/06. Patient seen and examined. States breathing has improved, feels much better after thoracentesis yesterday. Labs done this morning showed WBC 8.7, hemoglobin 7.7, platelet count 139, sodium 139, potassium 4.2, BUN 90, creatinine 4 04/07/2023 Patient is currently sitting up in the chair. Awake alert and oriented 3. Currently on 2 L oxygen via nasal cannula. Patient is being cannula on by mouth twice a day. Also on DuoNeb's and Pulmicort inhalation. No comments of nausea or vomiting. Tolerating oral diet. No bowel movement today. Laboratory data showed sodium 138 potassium 4.0 chloride 95 BUN 91.1 and creatinine 4.0 Patient is being followed by pulmonary and nephrology. Chest x-ray showed increasing consolidation and pleural effusion on the left. Likely represent a hydropneumothorax of approximately 5-10% pneumothorax noted. No significant interval change. 04/08/2023 Patient is currently sitting which it. Awake alert and oriented 3. requiring oxygen at a 2 L via nasal cannula. pleural fluid cultures showed no growth. No plans for chest tube placement. Pulmonary is on board. laboratory data showed sodium 139, potassium 3.9, chloride 95, BUN 96.5 and creatinine 3.1. Nephrology and pulmonology is on board. 04/09/2023 Patient is sitting in the chair. Awake alert and oriented 3. Requiring 2 L oxygen with nasal cannula. Patient does have home oxygen. Patient has been afebrile. Able to tolerate oral diet. Pleural fluid culture is negative. Cytology is negative for malignancy.. Repeat chest x-ray was ordered for tomorrow. No plan for chest tube placement at this time. Pulmonary is on board. No new laboratory data today. 04/11. Patient seen and examined. Repeat chest x-ray done showed pneumothorax moderate to large left, currently not in respiratory distress. Denies any blood in the stools 04/12. Patient seen and examined. Labs done this morning showed WBC 6.5, hemoglobin 7.6, platelet count 186, sodium 130, potassium 4.8, BUN 122, creatinine 3.9. FOBT was positive, surgery was consulted, they recommended doing EGD which is scheduled for tomorrow morning. N.p.o. at midnight 04/13. Patient seen and examined. Patient went for EGD this morning which s howed Squamocolumnar junction 41 cm from the incisors,Diaphragmatic hiatus at 41 cm,LA grade B erosive esophagitis,Acute gastritis with bleeding. 04/14. Patient seen examined. Patient had left-sided Thora vent placed. Shortness of breath has improved. Denies any nausea or vomiting. 04/15/2023 Patient is seen and evaluated in follow-up this morning continues on 3 L via nasal cannula currently weaning FiO2 as tolerated. Patient being followed by pulmonary recommending follow-up chest x-ray to monitor left-sided pneumothorax. Patient continues with left Thora vent and pulmonary discussing possibly removing the chest tube. Patient also being followed by cardiology as well as nephrology with CHF exacerbation along with acute on chronic kidney disease exacerbation. Patient has had prolonged hospitalization and generalized weakness and patient reports will be returning home and has support at the home and will continue with rehab in the outpatient setting. Patient is adamant he is going home once discharged. Hemoglobin is stable above 7 at 7.2 today white count remains normal, sodium is 134 with a potassium of 5.4, BUN is 131 and creatinine is 4.4, LFTs slightly trending down and C. difficile testing from yesterday was negative. Patient continues on oral Lasix. Potassium slightly elevated today and was given a dose of Lokelma. Will follow-up on repeat labs. Patient was continued on scheduled lactulose per surgery recommendations and will make as needed as patient is reporting having loose stools. 04/16/2023 Patient is seen in follow-up today status post chest x-ray today that showed a trace pneumothorax on the left and patient is scheduled to have the thoracotomy tube removed. Hemoglobin this morning slightly low at 6.7 and will transfuse 1 unit of PRBCs and follow-up on repeat labs later this afternoon. Patient continues on 3 L via nasal cannula reporting continued shortness of breath although no worse. Kidney functions continue with an elevated BUN of 138 and creatinine is 4.5. Nephrology is following. Potassium remains elevated and is status post a dose of Lokelma and patient has been given DDAVP today. Will follow-up with repeat labs. Encouraged increase activity as tolerated recommend PT/OT therapy evaluation. General surgery following as well with plans of endoscopic intervention including EGD and colonoscopy once more stable. Possibl y Thursday. Anticoagulation remains on hold. 04/17/2023 Patient is seen in follow-up today with multiple medical consultations following. Patient had chest tube removed maintained on 3 L reports tolerating well with no worsening shortness of breath. Kidney functions continue to worsen with nephrology following recommending renal replacement. Vascular surgery consulted for dialysis cath placement. Patient is afebrile with no reported chest pain or palpitations noted. General surgery also following with plans on colonoscopy on Thursday. Hemoglobin is stable currently. Will follow-up with repeat labs and continue to monitor closely. Given significant comorbidities, prognosis is guarded. REVIEW OF SYSTEMS: CONSTITUTIONAL: No fever, no malaise,. CARDIOVASCULAR: No chest pain, no palpitations, no syncope. PULMONARY: As mentioned above GASTROINTESTINAL: Reports of diarrhea, no nausea, no vomiting, no abdominal pain. NEUROLOGICAL: No headaches, no weakness, PHYSICAL EXAMINATION: GENERAL: The patient is alert and oriented x3, not in any acute distress. Well developed, well nourished. Elderly appearing, ill-appearing, thin built HEENT: Pupils are round and equally reacting to light. EOMI. No scleral icterus. No conjunctival pallor. Normocephalic, atraumatic. No pharyngeal erythema. No thyromegaly. CARDIOVASCULAR: S1 and S2 muffled PULMONARY: Coarse breath sound bilaterally, diminished at the bases, crackles audible, post left Thora vent removal and dressing is intact on the chest ABDOMEN: Soft, nontender, nondistended, normoactive bowel sounds. No palpable organomegaly. MUSCULOSKELETAL: No joint swelling or deformity. EXTREMITIES: No cyanosis, clubbing, or pedal edema. NEUROLOGICAL: Gross neurological examination did not reveal any focal deficits. Diffusely weak SKIN: No rashes. Assessment: Hyperkalemia Acute hypoxic respiratory failure secondary to CHF exacerbation as well as large left sided pleural effusion and small right, status post left-sided thora centesis x 2 recently and repeat 1 done on 04/11/2023 with approximately 1.2 L removed Moderate left-sided pneumothorax postprocedure status post Thora vent placement, Thora vent being removed today 04/16/2023 Acute on chronic systolic congestive heart failure exacerbation, EF is 30 to 35% Acute on chronic kidney disease with worsening kidney functions, plans for hemodialysis catheter placement today Acute on chronic gastritis with bleeding noted on EGD. 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 Patient scheduled to undergo colonoscopy on Thursday Anemia, likely chronic, transfuse if 7 or less History of moderate to severe aortic stenosis History paroxysmal A-fib, currently rate controlled COPD, acute exacerbation Lactic acidosis, resolved Bilateral pleural effusion status post thoracentesis x 2 this admission GI prophylaxis DVT prophylaxis Full code Plan: Patient was continued with Thora vent and repeat chest x-ray showing improvement and chest tube removed and tolerating thus far. Patient continues on 3 L via nasal cannula recommend to wean FiO2 as tolerated Follow-up on repeat labs in the a.m. and monitor kidney functions along with electrolytes. Replace electrolytes per protocol. Kidney functions continue to worsen and potassium remains elevated despite multiple attempts at correcting with nephrology following and plans on hemodialysis. Vascular surgery consulted for dialysis catheter placement. Encouraged increase activity as tolerated as patient reports is going home. Recommend PT/OT therapy daily Due to multiple complex medical issues, prognosis is guarded The impression and plan of care has been dictated by Tania Reynoso, Nurse Practitioner as directed. Dr. Shane MD I have performed a history and examination and MDM of this patient, discussed the same with the dictator, and agree with the dictator's assessment and plan as written ,documented as a scribe. Based on total visit time, I have performed more than 50% of the visit. Objective - Vital Signs Vital signs: Vital Signs Temp 97.2 F L 04/17/23 07:15 Pulse 70 04/17/23 09:38 Resp 17 04/17/23 07:15 BP 93/38 04/17/23 07:15 Pulse Ox 96 04/17/23 09:33 FiO2 Intake & Output 04/16/23 04/17/23 04/17/23 18:59 06:59 18:59 Intake Total 360 358 Output Total 325 200 Balance 35 -200 358 Weight 67.5 kg Intake: Intake, IV Titration 50 Amount Desmopressin Acetate 28 50 mcg In Sodium Chloride 0. 9% 50 ml @ 200 mls/hr IVPB ONCE ONE Rx#: [id number] Oral 358 Blood Product 310 Rc As-1 Unit 310 [id number] Output: Urine 325 200 Other: Voiding Method Indwelling Catheter Indwelling Catheter - Labs CBC & Chem 7: 04/17/23 06:32 04/18/23 01:16 Labs: Abnormal Lab Results - Last 24 Hours (Table) 04/16/23 04/16/23 04/16/23 Range/Units 05:01 11:14 20:52 RBC 2.68 L (4.30-5.90) m/uL Hgb 8.3 L (13.0-17.5) gm/dL Hct 26.3 L (39.0-53.0) % RDW 16.7 H (11.5-15.5) % Lymphocytes # 0.8 L (1.0-4.8) k/uL Lymphocytes # (Manual) 0.41 L (0.90-5.00) X 10*3/uL Eosinophils # (Manual) 0.49 H (0.04-0.35) X 10*3/uL Crossmatch See Detail
--- NOTE | 2023-04-18 09:09 | IR ---
EXAMINATION TYPE: IR cvc insert non tunneled DATE OF EXAM: 04/18/2023 CLINICAL HISTORY: Renal failure. TECHNIQUE: Fluoroscopy. COMPARISON: None. FINDINGS: Fluoroscopic guidance was provided during right femoral venous dialysis catheter insertion procedure performed by Dr. Harrington. A total of 24 seconds of fluoroscopic time was utilized during the procedure and 130 spot images are acquired. TOTAL DAP = 2.3 mGy. IMPRESSION: As Above.
--- NOTE | 2023-04-18 09:25 | OP ---
OPERATIVE REPORT DATE OF SERVICE : PREOPERATIVE DIAGNOSES: Acute chronic renal failure, hyperkalemia. POSTOPERATIVE DIAGNOSES: Acute chronic renal failure, hyperkalemia. PROCEDURE PERFORMED: Ultrasound-guided 30 cm dialysis catheter placed in the right femoral approach. DESCRIPTION OF PROCEDURE: The patient was brought to the label designer. Right groin was prepped and drapes applied in a sterile manner. 1% lidocaine was infiltrated in the groin area. Ultrasound-guided micropuncture was introduced in the right femoral vein. Micropuncture guidewire was passed and 4-Kazakh dilator advanced on top of the guidewire. Then, we passed a regular guidewire without any resistance. Dilator was advanced and 30 cm dialysis catheter placed on the top of the guidewire. The guidewire was removed, flushed with heparin saline and hep-locked, secured with 3-0 nylon. The patient tolerated the procedure well. CHRIS / HOWIE: [id number] /
[2023-04-18 09:53] LABS: Magnesium 2.2 mg/dL (1.5-2.4)
[2023-04-18 10:09] LABS: BUN/Creat Ratio 29.42 Ratio (12.00-20.00); Calcium 9.1 mg/dL (8.7-10.3); Carbon Dioxide 26.2 mmol/L (21.6-31.8); Chloride 90 mmol/L (96-109); Glucose 74 mg/dL (70-110); Potassium 5.9 mmol/L (3.5-5.5); Sodium 135 mmol/L (135-145)
[2023-04-18 11:40] LABS: Glucose,Whole Blood 92 mg/dL (70-110)
--- NOTE | 2023-04-18 11:47 | P.PN ---
Subjective Patient is seen for follow-up for acute kidney injury on top of chronic kidney disease. Renal function had deteriorated and patient is started on hemodialysis on 04/18/2023. Status post temporary right femoral catheter placement Currently seen on hemodialysis. Patient is tolerating treatment well. Objective - Vital Signs Vital signs: Vital Signs Temp 98.3 F 04/18/23 02:00 Pulse 70 04/18/23 07:56 Resp 17 04/18/23 02:00 BP 112/45 04/18/23 02:00 Pulse Ox 98 04/18/23 02:00 FiO2 Intake & Output 04/17/23 04/18/23 04/18/23 18:59 06:59 18:59 Intake Total 716 Output Total 580 500 Balance 136 -500 Weight 67.5 kg 124 kg Intake: Oral 716 Output: Urine 580 500 Other: Voiding Method Indwelling Catheter Indwelling Catheter Indwelling Catheter - Exam Patient is awake, comfortable, no acute distress Examination of the heart S1 and S2 Examination of the lungs bilateral breath sounds are heard Abdomen is soft nontender Examination lower extremities shows no significant edema BILLING ASSOCIATE exam grossly intact - Labs CBC & Chem 7: 04/17/23 06:32 04/18/23 06:09 Labs: Abnormal Lab Results - Last 24 Hours (Table) 04/17/23 04/17/23 04/18/23 Range/Units 06:32 20:42 01:16 Sodium 132 L (135-145) mmol/L Potassium 5.8 H 5.9 H 5.3 H (3.5-5.5) mmol/L Chloride 92 L (96-109) mmol/L Anion Gap 14.60 H (4.00-12.00) mmol/L BUN 143.0 A* (9.0-27.0) mg/dL Creatinine 5.0 H (0.6-1.5) mg/dL Est GFR (CKD-EPI) 11 L (>=60) BUN/Creatinine Ratio (12.00-20.00) Ratio 04/18/23 Range/Units 06:09 Sodium (135-145) mmol/L Potassium 5.9 H (3.5-5.5) mmol/L Chloride 90 L (96-109) mmol/L Anion Gap 18.80 H (4.00-12.00) mmol/L BUN 153.0 A* (9.0-27.0) mg/dL Creatinine 5.2 H (0.6-1.5) mg/dL Est GFR (CKD-EPI) 10 L (>=60) BUN/Creatinine Ratio 29.42 H (12.00-20.00) Ratio Assessment and Plan Assessment: 1. Acute kidney injury secondary to ATN secondary to anemia and cardiorenal syndrome along with urinary retention. Renal function continued to worsen and therefore patient is started on hemodialysis on 04/18/2023. No obstruction noted on ultrasound. Elevated BUN secondary to GI bleed. Steroids have been discontinued 2. Chronic kidney disease stage IV with baseline creatinine near 3 secondary to nephrosclerosis and obstructive uropathy. 3. Hyperkalemia secondary to acute kidney injury, acidosis and urinary retention. Improved with medical management. 4. Volume overload with pleural effusions. 5. Acute blood loss anemia status post blood transfusion this admission. Eliquis on hold. Possible GI bleed. Maintained on Aranesp 6. Acute on chronic systolic CHF ejection fraction of 30 to 35% with moderate mitral and tricuspid regurgitation. 7. Metabolic acidosis secondary to acute kidney injury improved with bicarb drip. 8. Urinary retention status post Riley catheter placement. On Flomax. 9. Left hydropneumothorax, stable Plan: Next hemodialysis on 04/20/2023. Patient will need IJ catheter placement next week as he will need to continue with outpatient hemodialysis.
--- NOTE | 2023-04-18 12:39 | P.PN ---
Subjective Progress Note Date: 04/18/23 I am seeing this patient in consultation today 04/02/2023 for dyspnea and left- sided pleural effusion. He is currently in the emergency room. He was transferred from [facility] late last night for severe hyperkalemia and acute kidney injury. Patient is a 87-year-old white male with past medical history significant for chronic kidney disease, congestive heart failure, atrial fibrillation anticoagulated on Eliquis, hyperlipidemia, COPD, and BPH. Patient is technically a poor historian. Apparently, he is complaining of shortness of breath, weakness and sore throat over the last several days. This progressively worsened, and he went into [facility] to be evaluated. Patient was found to be severely hyperkalemic. He was also found to be anemic and was transfused 1 unit PRBC. He was transferred to [facility]. Patient is currently resting in bed, on 2 L/min nasal cannula, in no acute distress. He is weak and cannot sit up in bed without assistance. Becomes short of breath with any kind of activity. He denies any chest pain, heart palpitations, or syncopal events. He does have bilateral lower extremity swelling. He has an occasional nonproductive cough. Denies any sputum production, fevers. Chest x-ray on arrival shows cardiomegaly, pulmonary vasc ular congestion, and interstitial edema. There is a moderate to large left- sided pleural effusion and small right pleural effusion.. Patient was given 60 mg of IV Lasix. A Riley catheter was inserted, and the patient has approximately 800 mL of concentrated urine. Patient states that earlier in the week he has had troubles urinating. He voids about 2-3 times per day. Endorses dysuria. Denies any hematuria, urinary frequency. Urinalysis on arrival not concerning for UTI. Trace protein. He does have baseline chronic kidney disease. Ultrasound of the abdomen and bladder did not show any hydronephrosis. Potassium level on arrival was elevated at 8.4 and is down to 5 point 3:06 amp sodium bicarb, 10 g Lokelma, 10 units insulin, 2 A D50 W, calcium gluconate, and the above-mentioned Lasix. Nephrology has been consulted. There is D5W with 3 amp sodium bicarb infusing at 50 MLS per hour. BMP on arrival has a sodium 138, testing 8.4, chloride 108, serum bicarb 18, BUN 74, creatinine 3.68, and glucose 85. Lactic acid level was 3.8 on arrival and is down to 1.6. Troponin less th an 0.012. NT proBNP 57,800. ECG shows normal sinus rhythm with chronic left bundle branch block without any obvious hyperkalemic changes. CBC on arrival: WBC count 8.4, hemoglobin 10.7, hematocrit 34, platelets 121. Group A strep negative. No signs of bleeding. Patient has chronic anemia. Patient denies any acute blood loss. No bloody bowel movements, melena, hematemesis. No abdominal pain or diarrhea. Vital signs are stable. The patient is seen today April 03, 2023 in follow-up in the emergency department. He is currently sitting up on the stretcher. Awake and alert in no acute distress. He is breathing a bit easier today compared to yesterday. He states he is about 50% better. He is still somewhat bronchospastic and wheezing. White count 8.6. Hemoglobin 8.1. Platelets 127. Sodium 139. Potassium 5.0. BUN 89. Creatinine 4.02. Glucose 118. He is continued on IV diuretics. Anticoagulated with Eliquis. Continued on bronchodilators. Currently in a -1.2 L balance. Making good urine. The patient is seen today April 04, 2023 in follow-up on the regular medical floor. He is awake and alert in no acute distress. Resting fairly comfortably in bed. Denies any worsening shortness of breath, cough or congestion. He is maintaining O2 saturation in the 90s on 2 L/min per nasal cannula. Chest x-ray does reveal increasing left pleural effusion and a right-sided pleural effusion. Echocardiogram confirms a right-sided pleural effusion measuring 11.9 cm, left- sided pleural effusion at 10.8 cm. The patient is currently on Eliquis this will be placed on hold for possible left-sided thoracentesis tomorrow. Count 9.0. Hemoglobin 7.8. Platelets 140. Sodium 140. Potassium 4.8. Bicarb 28. BUN 87. Creatinine 4.1. Glucose 88. He remains on Lasix 60 mg IV twice a day. Currently net -1.5 L balance The patient is seen today April 05, 2023 in follow-up on the regular medical floor. He is currently sitting up in bed. Awake and alert in no acute distress. He is maintaining O2 saturations in the 90s 2 L/min per nasal cannula. He is been afebrile. Hemodynamically stable. He did undergo a left- sided thoracentesis today with 1.4 L of straw-colored fluid removed. Fluid sent for analysis and cytology. Follow-up chest x-ray reveals a tiny left apical pneumothorax. Sodium 137. Potassium 4.1. Bicarb 31. BUN 97. Creatinine 3.86. Glucose 101. Remains on IV diuretics. Currently in a -2.8 L balance. The patient is seen today April 06, 2023 in follow-up on the regular medical floor. He is awake and alert no acute distress. He is resting comfortably in bed. He is maintaining good O2 saturations in the 90s on 2 L/min per nasal cannula. He remains on IV diuretics. Currently net -2.7 L balance. He is status post left-sided thoracentesis yesterday with 1.4 L of straw-colored fluid removed. Cytology pending. Fluid analysis transudate with a total protein of 2.6 and an LDH of 80. Today's chest x-ray shows small bilateral effusions. No evidence of pneumothorax. Count 8.7. Hemoglobin 7.7. Platelets 139. Sodium 139. Potassium 4.2. Bicarb 29. BUN 91. Creatinine 4.0. The patient is seen today April 07, 2023 in follow-up on the regular medical floor. He is resting comfortably in bed. Awake and alert in no acute distress. Maintaining O2 saturations in the 90s on 2 L/min per nasal cannula. He is con tinued on bronchodilators and oral diuretics. Currently net -1.2 L balance. Follow-up chest x-ray revealed creasing consolidation and pleural effusion on the left. Likely represents a hydropneumothorax of approximately 5 to 10% pneumothorax noted. No significant change. The patient is seen today April 08, 2023 in follow-up on the regular medical floor. He is awake and alert in no acute distress. Maintaining O2 saturations in the 90s on 2 L/min per nasal cannula. Laying in bed. CT scan of the chest revealed moderate-sized bilateral pleural effusions. Left effusion appears loculated and there is additionally a left anterior pneumothorax at approximately 15 to 20%. Consolidation and partial collapse of the left lung. Atelectasis in the right posterior lung. Pleural fluid cultures revealed no growth, no malignancy. No plans for chest tube placement. Eliquis has been resumed. White count 8.5. Hemoglobin 7.7. Platelets 146. Sodium 139. Potassium 3.9. Bicarb 29. BUN 96. Creatinine 3.9. The patient is seen today April 09, 2023 in follow-up on the regular medical floor. He is resting comfortably in bed. Awake and alert in no acute distress. Maintaining O2 saturations in the 90s on 2 L/min per nasal cannula. He denies any worsening shortness of breath, cough or congestion. No new labs today. No chest x-ray today. He is anticoagulated with Eliquis. The patient is seen today April 10, 2023 in follow-up on the regular medical floor. He is awake and alert in no acute distress. Resting fairly comfortably in bed. Today's chest x-ray shows reaccumulation of fluid in the left chest. He is currently on DuoNeb inhalation, Pulmicort inhalations. Remains on oral diuretics. No new labs today. Pleural fluid cultures revealed no growth. He is anticoagulated with Eliquis. The patient is seen today April 11, 2023 in follow-up on the regular medical floor. He is sitting up in bed. Awake and alert in no acute distress. Maintaining O2 saturations in the 90s on 2 L/min per nasal cannula. Sodium 134. Potassium 4.5. Bicarb 30. BUN 130. Creatinine 3.55. Glucose 88. Ultrasound of the chest did reveal a significant left-sided pleural effusion. He under went a second thoracentesis today with 1.2 L of dark yellow fluid removed. Unfortunately, follow-up chest x-ray does reveal a moderate to large left pneumothorax. The patient remains asymptomatic. Repeat chest x-ray pending. He remains on bronchodilators. Remains on oral diuretics. Plan a -1.1 L balance. The patient is seen today April 12, 2023 in follow-up on the regular medical floor. He is awake and alert in no acute distress. Maintaining O2 saturations in the 90s on 2 L/min per nasal cannula. He denies any worsening shortness of breath, cough or congestion. Denies any chest pain. Follow-up chest x-ray continues to show a left apical hydropneumothorax. Slight improvement today compared to yesterday. Pleural fluid cultures revealed no growth. White count 6.5. Hemoglobin 7.6. Platelets 186. Stool for occult blood was positive. He is continued on bronchodilators. Continued on diuretics. Currently in a -700 mL balance. On today's evaluation of 04/13/2023, the patient is being seen for a follow-up. Noted the patient has an acute hypoxic respiratory failure due to CHF and bilateral pleural effusion. Noted the patient had a large left-sided pleural effusion and a small right-sided pleural effusion. His proBNP level was elevated. He underwent a left thoracentesis on 04/05/2023 with a total of 1.4 L of fluid removed that was transudative. Subsequent CAT scan of the chest showed a 15 to 20% pneumothorax. Chest x-ray on 04/10/2023 showed significant recommendation of the left-sided pleural effusion and at the same time there was a persistent pneumothorax on the left. The patient underwent another thoracentesis on 04/11/2023 with a total of 1.2 L of fluid was removed. I reviewed the chest x-ray from today and there is a large stable left-sided hydropneumothorax. Based on that, I inserted the Thora vent in this patient and immediately around 600 cc of pleural fluid was drained in addition to air. The follow-up chest x-ray that was done showed decrease in the left-sided pneumothorax and the thoracostomy tube is in place and attached to suction with persistent air leak. The patient remains clinically and hemodynamically stable on 2 L of oxygen by nasal cannula with a pulse ox of 98%. The patient remains on [facility], on p.o. Lasix 40 mg twice a day. The patient is also on metoprolol 12.5 mg p.o. daily. His echocardiogram that was done on 04/02/2023 showed a left-ventricular ejection fraction of around 30 to 35% along with biatrial enlargement and moderate MR and moderate aortic stenosis/severe aortic stenosis. Moderate degree of tricuspid regurgitation was also present. On today's evaluation of 04/14/2023, I am seeing the patient for a follow- up.Patient has no specific complaints. The Thora vent is still in place and attached to suction. The total amount of output in terms of fluid from the left lung was in the order of 800 cc from yesterday. There is no persistent air leak. I am ordering a urgent chest x-ray to follow-up on the pneumothorax. Otherwise, the patient has no specific complaints. The patient is still on Lasix 40 mg p.o. twice a day. Rest of the medications are essentially unchan ged. Labs from today shows a sodium level of 135, potassium of 5.2, BUN is 124 with a creatinine of 4.1 and a potassium level is at 5.2. Echocardiogram is showing impaired LV function with an ejection fraction of 35% with moderate MR, severe aortic stenosis and bilateral atrial enlargement. The patient is having some fecal occult blood positive and the patient was taken off anticoagulation for now. EGD EGD that was done on 04/13/2023 showed erosive esophagitis and gastritis. On today's evaluation of 04/15/2023, the patient is able to sit up in a chair. He is calm and comfortable. The output from the left sided Thora vent has improved and the fluid output has dropped significantly over the past 24 hours. Repeat chest x-ray was done and the patient continues to have a very trace left apical pneumothorax. There is also some limited subcutaneous emphysema. Overall, the patient is doing well. No significant respiratory distress and the patient was transitioned to room air oxygen with a pulse ox of 94%. The patient is currently on Lasix 40 mg p.o. twice a day. He is on DuoNeb nebulized treatments [id number]. Renal function is being monitored. BUN is at 131 with a creatinine of 4.4 and sodium levels at 134. The WBC count of 8.4 with a hemoglobin of 7.2. Note that the total vent is still faster suction. There is no evidence of any air leak. Suction is being applied in regards to his left- sided pleural effusion which seems to be adequately drained at this point in time. On today's evaluation of 04/16/2023, the patient is being seen for a follow-up. He is doing well. No specific complaints. I repeated the chest x-ray earlier this morning and there was no evidence of any pneumothorax. No evidence of any air leak and I took the opportunity to remove the Thora vent from his left lung. He remained stable and the patient is currently on 2 L of oxygen by nasal cannula with a pulse ox of 96%. Denies having any specific complaints. He has chronic kidney disease and the patient is being monitored by nephrology. Hemoglobin today is at 6.78 the patient does not have any acute signs of GI bleeding. The patient had also a potassium level of 5.4. The patient was seen by nephrology and the patient will be given another dose of Lokelma 10 g and the patient is still maintained on Lasix 40 mg p.o. twice a day. Bronchodilators still being given in the form of DuoNeb nebulized treatments [id number] 4 times a day. The patient is on Aranesp. The patient is also scheduled to receive unit of packed RBC today. On today's evaluation of 04/17/2023, the patient respite status is stable and the patient is currently on 3 L O2 nasal cannula With a pulse ox of 97%. A repeat chest x-ray was done today and shows no evidence of any pneumothorax. The pat ient has developed a small left-sided pleural effusion. Otherwise, the patient is stable. Hemoglobin is at 7.9 with a white cell count of 7. Sodium level is at 132 with a potassium level of 5.8. The BUN is up to 143 with a creatinine of 5.0 as the patient has an acute on top of chronic kidney failure. His creatinine has been steadily on the rise. Nephrology on the case for now. Patient remains on Lasix 40 mg p.o. twice a day. On today's evaluation of 04/18/2023, respiratory status is stable and the patient has no respiratory difficulties. Nevertheless, there has been progressive worse quinn renal function and on today's evaluation his sodium level is at 135 with a potassium level of 5.9. The BUN is up to 153 with a creatinine of 5.2. Nephrology on the case and the patient was given a temporary dialysis catheter and the patient was started on hemodialysis for an acute on top of chronic kidney disease. He was started on hemodialysis today on 04/18/2023. He has a right femoral temporary dialysis catheter in place. He is feeling well. No other major respiratory difficulties. Any hemodynamic instability. Objective - Vital Signs Vital signs: Vital Signs Temp 98.3 F 04/18/23 02:00 Pulse 70 04/18/23 07:56 Resp 17 04/18/23 02:00 BP 112/45 04/18/23 02:00 Pulse Ox 98 04/18/23 02:00 FiO2 Intake & Output 04/17/23 04/18/23 04/18/23 18:59 06:59 18:59 Intake Total 716 Output Total 580 500 Balance 136 -500 Weight 67.5 kg 124 kg Intake: Oral 716 Output: Urine 580 500 Other: Voiding Method Indwelling Catheter Indwelling Catheter Indwelling Catheter - Exam GENERAL EXAM: Alert, pleasant 87-year-old male, resting comfortably in bed, on room air oxygen for now HEAD: Normocephalic and atraumatic EYES: Normal reaction of pupils, equal size. NOSE: Clear with pink turbinates. THROAT: Mild erythema, no exudates NECK: No masses, no JVD. CHEST: No chest wall deformity. LUNGS: Equal air entry with right basilar inspiratory crackles. Diminished in the left lung base. The patient has a left-sided Thora vent attached to a Pleur-evac with no evidence of any air leak and the output is minimal CVS: S1 and S2 normal with no audible murmur, regular rhythm. No extra heart sounds ABDOMEN: No hepatosplenomegaly, active bowel sounds, no guarding or rigidity. SPINE: No scoliosis or deformity SKIN: No rashes CENTRAL NERVOUS SYSTEM: No focal deficits, tone is normal in all 4 extremities. EXTREMITIES: There is moderate bilateral lower extremity nonpitting edema. No clubbing, or cyanosis. Peripheral pulses are intact. - Labs CBC & Chem 7: 04/17/23 06:32 04/18/23 06:09 Labs: Abnormal Lab Results - Last 24 Hours (Table) 04/17/23 04/17/23 04/17/23 Range/Units 06:32 06:32 20:42 RBC 2.57 L (4.40-5.60) X 10*6/uL Hgb 7.9 L (13.0-17.0) g/dL Hct 23.9 L (39.6-50.0) % RDW 16.3 H (11.5-14.5) % MPV 12.4 H (9.5-12.2) FL Eosinophils # 0.46 H (0.04-0.35) X 10*3/uL Sodium 132 L (135-145) mmol/L Potassium 5.8 H 5.9 H (3.5-5.5) mmol/L Chloride 92 L (96-109) mmol/L Anion Gap 14.60 H (4.00-12.00) mmol/L BUN 143.0 A* (9.0-27.0) mg/dL Creatinine 5.0 H (0.6-1.5) mg/dL Est GFR (CKD-EPI) 11 L (>=60) BUN/Creatinine Ratio (12.00-20.00) Ratio 04/18/23 04/18/23 Range/Units 01:16 06:09 RBC (4.40-5.60) X 10*6/uL Hgb (13.0-17.0) g/dL Hct (39.6-50.0) % RDW (11.5-14.5) % MPV (9.5-12.2) FL Eosinophils # (0.04-0.35) X 10*3/uL Sodium (135-145) mmol/L Potassium 5.3 H 5.9 H (3.5-5.5) mmol/L Chloride 90 L (96-109) mmol/L Anion Gap 18.80 H (4.00-12.00) mmol/L BUN 153.0 A* (9.0-27.0) mg/dL Creatinine 5.2 H (0.6-1.5) mg/dL Est GFR (CKD-EPI) 10 L (>=60) BUN/Creatinine Ratio 29.42 H (12.00-20.00) Ratio Assessment and Plan Plan: Acute hypoxemic respiratory failure, secondary to acute systolic CHF exacerbation and fluid overload. Chest x-ray shows cardiomegaly, pulmonary vascular congestion, and interstitial edema. Patient also has moderate to large left-sided pleural effusion and a small right pleural effusion. NT proBNP was elevated at 57,800. Status post left-sided thoracentesis April 05, 2023 with 1.4 L of straw-colored fluid removed. Fluid analysis transudate, cytology for malignancy. CT scan of the chest and follow-up chest x-ray reveals stable hydropneumothorax of approximately 15 to 20%. Chest x-ray today April 10, 2023 shows significant reaccumulation of fluid in the left chest. Ultrasound reveals a recurrent left pleural effusion measuring 10.4 cm. A second thoracentesis was performed April 11, 2023 with 1.2 L of fluid removed. For now, the patient has a Thora vent and additional 800 cc of fluid was drained through the Thora vent since insertion. For now, the repeat chest x-ray today shows no evidence of any pneumothorax and minimal residual effusion in the left lung base. The Thora vent was removed on 04/16/2023 and repeat chest x-ray on 04/17/2023 shows no evidence of any pneumothorax left-sided pneumothorax post procedure,, recovered and the Thora vent was removed on 04/16/2023 and there is no residual pneumothorax on subsequent chest x-ray that was done today Systolic heart failure with ejection fraction of 30 to 35% Moderate to severe aortic stenosis Moderate mitral regurgitation Acute on chronic kidney disease, creatinine is on the rise and the patient also developed some mild hyperkalemia Severe hyperkalemia, improved Lactic acidosis, improved Chronic obstructive pulmonary disease, stable History of paroxysmal atrial fibrillation, currently on no anticoagulants Benign prostatic hyperplasia Anemia of chronic disease, patient reportedly received 1 unit PRBC at [facility], current hemoglobin at is at 7.9 Erosive esophagitis and gastritis Plan: Right femoral dialysis catheter has been inserted The patient will be started on hemodialysis today on 04/18/2023 Nephrology to monitor renal function and the potassium . Repeat chest x-ray shows a small left-sided pleural effusion without any e vidence of pneumothorax on 04/17/2023 Patient is currently on 2 L of O2 nasal cannula Monitor renal function Continue Lasix 40 mg p.o. twice a day Monitor renal function Hemoglobin is stable and there is no evidence of any GI bleed Placed the anticoagulation on hold due to concerns of GI bleed We will continue to follow
--- NOTE | 2023-04-18 13:43 | P.PN ---
Subjective Progress Note Date: 04/18/23 NAEON. No N/V. No worsening abdominal pain. No F/C. No SOB or CP. Admits to flatus, no BM. Objective - Vital Signs Vital signs: Vital Signs Temp 98.3 F 04/18/23 12:35 Pulse 78 04/18/23 12:35 Resp 18 04/18/23 12:35 BP 121/64 04/18/23 12:35 Pulse Ox 95 04/18/23 07:29 FiO2 Intake & Output 04/17/23 04/18/23 04/18/23 18:59 06:59 18:59 Intake Total 716 400 Output Total 580 500 900 Balance 136 -500 -500 Weight 67.5 kg 124 kg Intake: Oral 716 Hemodialysis 400 Output: Urine 580 500 Hemodialysis 900 Other: Voiding Method Indwelling Catheter Indwelling Catheter Indwelling Catheter - Labs CBC & Chem 7: 04/17/23 06:32 04/18/23 06:09 Labs: Abnormal Lab Results - Last 24 Hours (Table) 04/17/23 04/18/23 04/18/23 Range/Units 20:42 01:16 06:09 Potassium 5.9 H 5.3 H 5.9 H (3.5-5.1) mmol/L Chloride 90 L (96-109) mmol/L Anion Gap 18.80 H (4.00-12.00) mmol/L BUN 153.0 A* (9.0-27.0) mg/dL Creatinine 5.2 H (0.6-1.5) mg/dL Est GFR (CKD-EPI) 10 L (>=60) BUN/Creatinine Ratio 29.42 H (12.00-20.00) Ratio Assessment and Plan Assessment: ASSESSMENT: 1. Anemia status post EGD with acute gastritis with bleeding and erosive esophagitis 2. Left pneumothorax status post left-sided Thora vent and removal 3. History of left pleural effusion status post left-sided thoracentesis 4. Acute on chronic kidney disease 5. Atrial fibrillation 6. Severe aortic stenosis 7. Dysphagia Plan: -Patient scheduled for EGD with dilation and colonoscopy on 04/20/[address] Dueñas if medically stable -Continue to medically optimize patient -Continue to monitor hemoglobin -Continue to monitor for any signs or symptoms of bleeding -Continue IV Protonix -Continue to hold Eliquis -Continue dysphagia chopped diet as recommended per speech therapist -Hyperkalemia management per nephrology Senthil Houston MD General Surgery
[2023-04-18] MEDS: PEG 3350 (420 GM/BTL) + LYTES 4,000 ML BOTTLE PO ONE (15:15)
[2023-04-18 16:54] LABS: Glucose,Whole Blood 109 mg/dL (70-110)
--- NOTE | 2023-04-18 19:44 | P.PN ---
Subjective Progress Note Date: 04/18/23 Patient is a 87-year-old white male with past medical history significant for chronic kidney disease, congestive heart failure, atrial fibrillation anticoagulated on Eliquis, hyperlipidemia, COPD, and BPH, who was transferred from [facility] for severe hyperkalemia and acute kidney injury. P hiwot has been complaining of shortness of breath and weakness for a few days. Patient also complaining of sore throat. Patient weakness and shortness of breath progressed so he eventually presented to [facility] where he was evaluated, patient was found to have elevated potassium levels of 8.4, patient was given hyperkalemia protocol and received sodium bicarb, Lokelma, insulin and dextrose. Chest x-ray done showed large left pleural effusion small right pleural effusion, patient was transferred to [facility]. Patient has been complaining of shortness of breath on exertion and rest. Denies any chest pain. There is complaint of swelling of lower extremities. Patient complaining of nonproductive cough. Denies any fevers or chills Patient admitted to internal medicine service 04/03. Patient seen and examined. 2D echo done showed LVEF of 35% with global hypokinesis, severe biatrial enlargement, moderate mitral regurg, severe aortic stenosis. 04/04. Patient seen and examined. States breathing is improving, still gets short of breath on exertion. 04/05. Patient seen and examined. Patient being planned for thoracentesis this morning with pulmonary medicine. States breathing is improved. Denies any nausea or vomiting 04/06. Patient seen and examined. States breathing has improved, feels much better after thoracentesis yesterday. Labs done this morning showed WBC 8.7, hemoglobin 7.7, platelet count 139, sodium 139, potassium 4.2, BUN 90, creatinine 4 04/07/2023 Patient is currently sitting up in the chair. Awake alert and oriented 3. Currently on 2 L oxygen via nasal cannula. Patient is being cannula on by mouth twice a day. Also on DuoNeb's and Pulmicort inhalation. No comments of nausea or vomiting. Tolerating oral diet. No bowel movement today. Laboratory data showed sodium 138 potassium 4.0 chloride 95 BUN 91.1 and creatinine 4.0 Patient is being followed by pulmonary and nephrology. Chest x-ray showed increasing consolidation and pleural effusion on the left. Likely represent a hydropneumothorax of approximately 5-10% pneumothorax noted. No significant interval change. 04/08/2023 Patient is currently sitting which it. Awake alert and oriented 3. requiring oxygen at a 2 L via nasal cannula. pleural fluid cultures showed no growth. No plans for chest tube placement. Pulmonary is on board. laboratory data showed sodium 139, potassium 3.9, chloride 95, BUN 96.5 and creatinine 3.1. Nephrology and pulmonology is on board. 04/09/2023 Patient is sitting in the chair. Awake alert and oriented 3. Requiring 2 L oxygen with nasal cannula. Patient does have home oxygen. Patient has been afebrile. Able to tolerate oral diet. Pleural fluid culture is negative. Cytology is negative for malignancy.. Repeat chest x-ray was ordered for tomorrow. No plan for chest tube placement at this time. Pulmonary is on board. No new laboratory data today. 04/11. Patient seen and examined. Repeat chest x-ray done showed pneumothorax moderate to large left, currently not in respiratory distress. Denies any blood in the stools 04/12. Patient seen and examined. Labs done this morning showed WBC 6.5, hemoglobin 7.6, platelet count 186, sodium 130, potassium 4.8, BUN 122, creatinine 3.9. FOBT was positive, surgery was consulted, they recommended doing EGD which is scheduled for tomorrow morning. N.p.o. at midnight 04/13. Patient seen and examined. Patient went for EGD this morning which heide wed Squamocolumnar junction 41 cm from the incisors,Diaphragmatic hiatus at 41 cm,LA grade B erosive esophagitis,Acute gastritis with bleeding. 04/14. Patient seen examined. Patient had left-sided Thora vent placed. Shortness of breath has improved. Denies any nausea or vomiting. 04/15/2023 Patient is seen and evaluated in follow-up this morning continues on 3 L via nasal cannula currently weaning FiO2 as tolerated. Patient being followed by pulmonary recommending follow-up chest x-ray to monitor left-sided pneumothorax. Patient continues with left Thora vent and pulmonary discussing possibly removing the chest tube. Patient also being followed by cardiology as well as nephrology with CHF exacerbation along with acute on chronic kidney disease exacerbation. Patient has had prolonged hospitalization and generalized weakness and patient reports will be returning home and has support at the home and will continue with rehab in the outpatient setting. Patient is adamant he is going home once discharged. Hemoglobin is stable above 7 at 7.2 today white count remains normal, sodium is 134 with a potassium of 5.4, BUN is 131 and creatinine is 4.4, LFTs slightly trending down and C. difficile testing from yesterday was negative. Patient continues on oral Lasix. Potassium slightly elevated today and was given a dose of Lokelma. Will follow-up on repeat labs. Patient was continued on scheduled lactulose per surgery recommendations and will make as needed as patient is reporting having loose stools. 04/16/2023 Patient is seen in follow-up today status post chest x-ray today that showed a trace pneumothorax on the left and patient is scheduled to have the thoracotomy tube removed. Hemoglobin this morning slightly low at 6.7 and will transfuse 1 unit of PRBCs and follow-up on repeat labs later this afternoon. Patient continues on 3 L via nasal cannula reporting continued shortness of breath although no worse. Kidney functions continue with an elevated BUN of 138 and creatinine is 4.5. Nephrology is following. Potassium remains elevated and is status post a dose of Lokelma and patient has been given DDAVP today. Will follow-up with repeat labs. Encouraged increase activity as tolerated recommend PT/OT therapy evaluation. General surgery following as well with plans of endoscopic intervention including EGD and colonoscopy once more stable. Possibly Thursday. Anticoagulation remains on hold. 04/17/2023 Patient is seen in follow-up today with multiple medical consultations following. Patient had chest tube removed maintained on 3 L reports tolerating well with no worsening shortness of breath. Kidney functions continue to worsen with nephrology following recommending renal replacement. Vascular surgery consulted for dialysis cath placement. Patient is afebrile with no reported chest pain or palpitations noted. General surgery also following with plans on colonoscopy on Thursday. Hemoglobin is stable currently. Will follow-up with repeat labs and continue to monitor closely. Given significant comorbidities, prognosis is guarded. 3-2 24 Patient is currently lying in the bed. Awake alert and oriented x 3. Patient states that he has difficulty breathing and tightness in the chest. Currently requiring oxygen at 2 L via nasal cannula. Otherwise patient was found to be hyperkalemic potassium 5.9. Patient was placed on femoral catheter and was started on hemodialysis today. Denies any nausea or vomiting. Tolerating oral diet. No headache or dizziness or lightheadedness. Hemoglobin was 7.9 this morning. Laboratory data showed sodium 135 potassium 5.9 chloride 90 bicarb is 26.2 anion gap 18.8, BUN 153 and creatinine 5.2 and GFR 10 calcium 9.1. Current medications reviewed. REVIEW OF SYSTEMS: CONSTITUTIONAL: No fever, no malaise,. CARDIOVASCULAR: No chest pain, no palpitations, no syncope. PULMONARY: As mentioned above GASTROINTESTINAL: Reports of diarrhea, no nausea, no vomiting, no abdominal pain. NEUROLOGICAL: No headaches, no weakness, PHYSICAL EXAMINATION: GENERAL: The patient is alert and oriented x3, not in any acute distress. Well developed, well nourished. Elderly appearing, ill-appearing, thin built HEENT: Pupils are round and equally reacting to light. EOMI. No scleral icterus. No conjunctival pallor. Normocephalic, atraumatic. No pharyngeal erythema. No thyromegaly. CARDIOVASCULAR: S1 and S2 muffled PULMONARY: Coarse breath sound bilaterally, diminished at the bases, crackles audible, post left Thora vent removal and dressing is intact on the chest ABDOMEN: Soft, nontender, nondistended, normoactive bowel sounds. No palpable organomegaly. MUSCULOSKELETAL: No joint swelling or deformity. EXTREMITIES: No cyanosis, clubbing, or pedal edema. NEUROLOGICAL: Gross neurological examination did not reveal any focal deficits. Diffusely weak SKIN: No rashes. Assessment: Hyperkalemia secondary to OMA and metabolic acidosis. Acute on chronic kidney disease with worsening kidney functions. Patient was initiated on hemodialysis on 04/18/2023. Acute hypoxic respiratory failure secondary to CHF exacerbation as well as large left sided pleural effusion and small right, status post left-sided thoracentesis x 2 recently and repeat 1 done on 04/11/2023 with approximately 1.2 L removed Moderate left-sided pneumothorax postprocedure status post Thora vent placement, Thora vent being removed on 04/16/2023 Acute on chronic systolic congestive heart failure exacerbation, EF is 30 to 35% Acute on chronic gastritis with bleeding noted on EGD. 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 Patient scheduled to undergo colonoscopy on David Anemia, likely chronic, transfuse if 7 or less History of moderate to severe aortic stenosis paroxysmal A-fib, currently rate controlled COPD, acute exacerbation Lactic acidosis, resolved Bilateral pleural effusion status post thoracentesis x 2 this admission GI prophylaxis DVT prophylaxis. Anticoagulation, Eliquis is on hold due to drop in hemoglobin and suspected GI bleed. Full code Plan: Patient was started on hemodialysis on 04/18/2023 Patient was continued with Thora vent and repeat chest x-ray showing improvement and chest tube removed and tolerating thus far. Patient continues on 2 L via nasal cannula recommend to wean FiO2 as tolerated Follow-up on repeat labs in the a.m. and monitor kidney functions along with emmanuelle ctrolytes. Replace electrolytes per protocol. Kidney functions continue to worsen and potassium remains elevated despite multiple attempts at correcting with nephrology initiated on hemodialysis. Vascular surgery placed femoral temporary hemodialysis catheter. Patient has been continued on Lasix 40 mg twice daily. Continue with PPI. Eliquis, anticoagulation is on hold due to concern for GI bleed. Encouraged increase activity as tolerated as patient reports is going home. Recommend PT/OT therapy daily Due to multiple complex medical issues, prognosis is guarded Objective - Vital Signs Vital signs: Vital Signs Temp 97.8 F 04/18/23 13:37 Pulse 72 04/18/23 15:38 Resp 18 04/18/23 15:38 BP 112/46 04/18/23 13:37 Pulse Ox 92 L 04/18/23 13:37 FiO2 Intake & Output 04/18/23 04/18/23 04/19/23 06:59 18:59 06:59 Intake Total 400 Output Total 500 1140 Balance -500 -740 Weight 124 kg Intake: Hemodialysis 400 Output: Urine 500 240 Hemodialysis 900 Other: Voiding Method Indwelling Catheter Indwelling Catheter - Labs CBC & Chem 7: 04/17/23 06:32 04/18/23 06:09 Labs: Abnormal Lab Results - Last 24 Hours (Table) 04/17/23 04/18/23 04/18/23 Range/Units 20:42 01:16 06:09 Potassium 5.9 H 5.3 H 5.9 H (3.5-5.1) mmol/L Chloride 90 L (96-109) mmol/L Anion Gap 18.80 H (4.00-12.00) mmol/L BUN 153.0 A* (9.0-27.0) mg/dL Creatinine 5.2 H (0.6-1.5) mg/dL Est GFR (CKD-EPI) 10 L (>=60) BUN/Creatinine Ratio 29.42 H (12.00-20.00) Ratio
[2023-04-18 21:21] LABS: Glucose,Whole Blood 104 mg/dL (70-110)
[2023-04-18 23:48] LABS: Hepatitis B Surface AB- Quant 3.5 mIU/mL; Hepatitis B Surface Antigen Nonreactive
[2023-04-19 06:52] LABS: Glucose,Whole Blood 97 mg/dL (70-110)
[2023-04-19 07:35] LABS: Anisocytosis Slight; Basophils % (A) 0 %; Eosinophils # (A) 0.3 k/uL (0-0.7); Eosinophils % (A) 4 %; HCT 26.4 % (39.0-53.0); HGB 8.5 gm/dL (13.0-17.5); Hypochromasia Slight; Lymphocytes % (A) 13 %; MCH 31.9 pg (25.0-35.0); MCHC 32.1 g/dL (31.0-37.0); MCV 99.3 fL (80.0-100.0); Macrocytosis Slight; Mean Platelet Volume 9.4; Monocytes # (A) 0.6 k/uL (0-1.0); Monocytes % (A) 8 %; Neutrophils # (A) 5.1 k/uL (1.3-7.7); Neutrophils % (A) 71 %; Platelet Count 194 k/uL (150-450); RBC 2.66 m/uL (4.30-5.90); RDW 16.8 % (11.5-15.5); WBC 7.2 k/uL (3.8-10.6)
[2023-04-19 07:45] LABS: African American GFR (CKD) 16 (>60 ml/min/1.73 sqM); Anion Gap 9 mmol/L; Calcium 8.8 mg/dL (8.4-10.2); Carbon Dioxide 28 mmol/L (22-30); Chloride 96 mmol/L (98-107); Glucose 87 mg/dL (74-99); Non-African American GFR(CKD) 14 (>60 ml/min/1.73 sqM); Phosphorus 4.7 mg/dL (2.5-4.5); Potassium 5.2 mmol/L (3.5-5.1); Sodium 133 mmol/L (137-145)
[2023-04-19 07:56] LABS: Blood Urea Nitrogen 110 mg/dL (9-20)
[2023-04-19 12:18] LABS: Glucose,Whole Blood 101 mg/dL (70-110)
--- NOTE | 2023-04-19 14:28 | P.PN ---
Subjective Progress Note Date: 04/19/23 CHIEF COMPLAINT: Anemia HISTORY OF PRESENT ILLNESS: The patient is a 87-year-old male who has end-stage renal disease, recent dialysis access placement who also has anemia. Patient complains of moderate to severe dysphagia. Additionally, patient completed upper endoscopy. He is pending lower endoscopy due to anemia and history of GI bleed. Overall resting comfortably. No new events. ROS: No reports of nausea and vomiting. No fevers or chills. No new chest pain. No productive sputum PHYSICAL EXAM: VITAL SIGNS: Reviewed CONSTITUTIONAL: Well developed and in no acute distress. EYES: Conjuctivae without sclera icterus. Extraocular movements grossly intact. HEAD, EARS, NOSE, THROAT: Moist buccal mucosa. Head is atraumatic, normocephalic. Hears conversational speech. No nasal drainage. RESPIRATORY: Non-labored respirations and equal bilateral excursions. CARDIOVASCULAR: Palpable 2+ radial pulses. ABDOMEN: No peritonitis. MUSCULOSKELETAL: No gross deformity of the lower extremities noted. No clubbing. No cyanosis. SKIN: Good skin turgor. Well perfused. NEUROLOGIC: Cranial nerves II through XII grossly intact. No focal or lateralizing signs. PSYCH: Appropriate affect. Alert and oriented to person, place and time. CLINICAL LABS: Reviewed. WBC normal. Hemoglobin stable 8.5. ASSESSMENT: 1. Anemia with suspected GI bleed 2. Dysphagia 3. Renal failure status post dialysis catheter placement PLAN: 1. Will proceed with upper endoscopy with dilation for dysphagia 2. Will proceed with colonoscopy 3. Patient elevated risk for endoscopies due to pre-existing aortic stenosis Objective - Vital Signs Vital signs: Vital Signs Temp 96.8 F L 04/19/23 07:05 Pulse 72 04/19/23 09:28 Resp 18 04/19/23 07:05 BP 122/69 04/19/23 07:05 Pulse Ox 97 04/19/23 09:18 FiO2 Intake & Output 04/18/23 04/19/23 04/19/23 18:59 06:59 18:59 Intake Total 400 480 Output Total 1140 Balance -740 480 Intake: Oral 480 Hemodialysis 400 Output: Urine 240 Hemodialysis 900 Other: Voiding Method Indwelling Catheter Indwelling Catheter Indwelling Catheter - Labs CBC & Chem 7: 04/19/23 06:40 04/19/23 06:40 Labs: Abnormal Lab Results - Last 24 Hours (Table) 04/19/23 04/19/23 Range/Units 06:40 06:40 RBC 2.66 L (4.30-5.90) m/uL Hgb 8.5 L (13.0-17.5) gm/dL Hct 26.4 L (39.0-53.0) % RDW 16.8 H (11.5-15.5) % Sodium 133 L (137-145) mmol/L Potassium 5.2 H (3.5-5.1) mmol/L Chloride 96 L (98-107) mmol/L BUN 110 H* (9-20) mg/dL Creatinine 3.72 H (0.66-1.25) mg/dL Phosphorus 4.7 H (2.5-4.5) mg/dL
--- NOTE | 2023-04-19 14:51 | P.PN ---
Subjective Patient is seen for follow-up for acute kidney injury on top of chronic kidney disease. Renal function had deteriorated and patient is started on hemodialysis on 04/18/2023. Status post temporary right femoral catheter placement Tolerated hemodialysis well yesterday with UF of 900 mL. No significant complaints today. Objective - Vital Signs Vital signs: Vital Signs Temp 96.8 F L 04/19/23 07:05 Pulse 72 04/19/23 09:28 Resp 18 04/19/23 07:05 BP 122/69 04/19/23 07:05 Pulse Ox 97 04/19/23 09:18 FiO2 Intake & Output 04/18/23 04/19/23 04/19/23 18:59 06:59 18:59 Intake Total 400 480 Output Total 1140 Balance -740 480 Intake: Oral 480 Hemodialysis 400 Output: Urine 240 Hemodialysis 900 Other: Voiding Method Indwelling Catheter Indwelling Catheter Indwelling Catheter - Exam Patient is awake, comfortable, no acute distress Examination of the heart S1 and S2 Examination of the lungs bilateral breath sounds are heard Abdomen is soft nontender Examination lower extremities shows no significant edema [employer] exam grossly intact - Labs CBC & Chem 7: 04/19/23 06:40 04/19/23 06:40 Labs: Abnormal Lab Results - Last 24 Hours (Table) 04/19/23 04/19/23 Range/Units 06:40 06:40 RBC 2.66 L (4.30-5.90) m/uL Hgb 8.5 L (13.0-17.5) gm/dL Hct 26.4 L (39.0-53.0) % RDW 16.8 H (11.5-15.5) % Sodium 133 L (137-145) mmol/L Potassium 5.2 H (3.5-5.1) mmol/L Chloride 96 L (98-107) mmol/L BUN 110 H* (9-20) mg/dL Creatinine 3.72 H (0.66-1.25) mg/dL Phosphorus 4.7 H (2.5-4.5) mg/dL Assessment and Plan Assessment: 1. Acute kidney injury secondary to ATN secondary to anemia and cardiorenal syndrome along with urinary retention. Renal function continued to worsen and therefore patient is started on hemodialysis on 04/18/2023. No obstruction noted on ultrasound. Elevated BUN secondary to GI bleed. Steroids have been discontinued 2. Chronic kidney disease stage IV with baseline creatinine near 3 secondary to nephrosclerosis and obstructive uropathy. 3. Hyperkalemia secondary to acute kidney injury, acidosis and urinary retention. Improved with medical management. 4. Volume overload with pleural effusions. Improved 5. Acute blood loss anemia status post blood transfusion this admission. Eliquis on hold. Possible GI bleed. Maintained on Aranesp 6. Acute on chronic systolic CHF ejection fraction of 30 to 35% with moderate mitral and tricuspid regurgitation. 7. Metabolic acidosis secondary to acute kidney injury improved with bicarb drip. 8. Urinary retention status post Riley catheter placement. On Flomax. 9. Left hydropneumothorax, stable Plan: Next hemodialysis on 04/20/2023. Patient will need IJ catheter placement as he will need to continue with outpatient hemodialysis.
[2023-04-19 17:03] LABS: Glucose,Whole Blood 92 mg/dL (70-110)
[2023-04-19] MEDS: PEG 3350 (420 GM/BTL) + LYTES 4,000 ML BOTTLE PO ONE (17:39)
--- NOTE | 2023-04-19 17:49 | P.PN ---
Subjective Progress Note Date: 04/19/23 I am seeing this patient in consultation today 04/02/2023 for dyspnea and left- sided pleural effusion. He is currently in the emergency room. He was transferred from [facility] late last night for severe hyperkalemia and acute kidney injury. Patient is a 87-year-old white male with past medical history significant for chronic kidney disease, congestive heart failure, atrial fibrillation anticoagulated on Eliquis, hyperlipidemia, COPD, and BPH. Patient is technically a poor historian. Apparently, he is complaining of shortness of breath, weakness and sore throat over the last several days. This progressively worsened, and he went into [facility] to be evaluated. Patient was found to be severely hyperkalemic. He was also found to be anemic and was transfused 1 unit PRBC. He was transferred to [facility]. Patient is currently resting in bed, on 2 L/min nasal cannula, in no acute distress. He is weak and cannot sit up in bed without assistance. Becomes short of breath with any kind of activity. He denies any chest pain, heart palpitations, or syncopal events. He does have bilateral lower extremity swelling. He has an occasional nonproductive cough. Denies any sputum production, fevers. Chest x-ray on arrival shows cardiomegaly, pulmonary vasc ular congestion, and interstitial edema. There is a moderate to large left- sided pleural effusion and small right pleural effusion.. Patient was given 60 mg of IV Lasix. A Riley catheter was inserted, and the patient has approximately 800 mL of concentrated urine. Patient states that earlier in the week he has had troubles urinating. He voids about 2-3 times per day. Endorses dysuria. Denies any hematuria, urinary frequency. Urinalysis on arrival not concerning for UTI. Trace protein. He does have baseline chronic kidney disease. Ultrasound of the abdomen and bladder did not show any hydronephrosis. Potassium level on arrival was elevated at 8.4 and is down to 5 point 3:06 amp sodium bicarb, 10 g Lokelma, 10 units insulin, 2 A D50 W, calcium gluconate, and the above-mentioned Lasix. Nephrology has been consulted. There is D5W with 3 amp sodium bicarb infusing at 50 MLS per hour. BMP on arrival has a sodium 138, testing 8.4, chloride 108, serum bicarb 18, BUN 74, creatinine 3.68, and glucose 85. Lactic acid level was 3.8 on arrival and is down to 1.6. Troponin less th an 0.012. NT proBNP 57,800. ECG shows normal sinus rhythm with chronic left bundle branch block without any obvious hyperkalemic changes. CBC on arrival: WBC count 8.4, hemoglobin 10.7, hematocrit 34, platelets 121. Group A strep negative. No signs of bleeding. Patient has chronic anemia. Patient denies any acute blood loss. No bloody bowel movements, melena, hematemesis. No abdominal pain or diarrhea. Vital signs are stable. The patient is seen today April 03, 2023 in follow-up in the emergency department. He is currently sitting up on the stretcher. Awake and alert in no acute distress. He is breathing a bit easier today compared to yesterday. He states he is about 50% better. He is still somewhat bronchospastic and wheezing. White count 8.6. Hemoglobin 8.1. Platelets 127. Sodium 139. Potassium 5.0. BUN 89. Creatinine 4.02. Glucose 118. He is continued on IV diuretics. Anticoagulated with Eliquis. Continued on bronchodilators. Currently in a -1.2 L balance. Making good urine. The patient is seen today April 04, 2023 in follow-up on the regular medical floor. He is awake and alert in no acute distress. Resting fairly comfortably in bed. Denies any worsening shortness of breath, cough or congestion. He is maintaining O2 saturation in the 90s on 2 L/min per nasal cannula. Chest x-ray does reveal increasing left pleural effusion and a right-sided pleural effusion. Echocardiogram confirms a right-sided pleural effusion measuring 11.9 cm, left- sided pleural effusion at 10.8 cm. The patient is currently on Eliquis this will be placed on hold for possible left-sided thoracentesis tomorrow. Count 9.0. Hemoglobin 7.8. Platelets 140. Sodium 140. Potassium 4.8. Bicarb 28. BUN 87. Creatinine 4.1. Glucose 88. He remains on Lasix 60 mg IV twice a day. Currently net -1.5 L balance The patient is seen today April 05, 2023 in follow-up on the regular medical floor. He is currently sitting up in bed. Awake and alert in no acute distress. He is maintaining O2 saturations in the 90s 2 L/min per nasal cannula. He is been afebrile. Hemodynamically stable. He did undergo a left- sided thoracentesis today with 1.4 L of straw-colored fluid removed. Fluid sent for analysis and cytology. Follow-up chest x-ray reveals a tiny left apical pneumothorax. Sodium 137. Potassium 4.1. Bicarb 31. BUN 97. Creatinine 3.86. Glucose 101. Remains on IV diuretics. Currently in a -2.8 L balance. The patient is seen today April 06, 2023 in follow-up on the regular medical floor. He is awake and alert no acute distress. He is resting comfortably in bed. He is maintaining good O2 saturations in the 90s on 2 L/min per nasal cannula. He remains on IV diuretics. Currently net -2.7 L balance. He is status post left-sided thoracentesis yesterday with 1.4 L of straw-colored fluid removed. Cytology pending. Fluid analysis transudate with a total protein of 2.6 and an LDH of 80. Today's chest x-ray shows small bilateral effusions. No evidence of pneumothorax. Count 8.7. Hemoglobin 7.7. Platelets 139. Sodium 139. Potassium 4.2. Bicarb 29. BUN 91. Creatinine 4.0. The patient is seen today April 07, 2023 in follow-up on the regular medical floor. He is resting comfortably in bed. Awake and alert in no acute distress. Maintaining O2 saturations in the 90s on 2 L/min per nasal cannula. He is con tinued on bronchodilators and oral diuretics. Currently net -1.2 L balance. Follow-up chest x-ray revealed creasing consolidation and pleural effusion on the left. Likely represents a hydropneumothorax of approximately 5 to 10% pneumothorax noted. No significant change. The patient is seen today April 08, 2023 in follow-up on the regular medical floor. He is awake and alert in no acute distress. Maintaining O2 saturations in the 90s on 2 L/min per nasal cannula. Laying in bed. CT scan of the chest revealed moderate-sized bilateral pleural effusions. Left effusion appears loculated and there is additionally a left anterior pneumothorax at approximately 15 to 20%. Consolidation and partial collapse of the left lung. Atelectasis in the right posterior lung. Pleural fluid cultures revealed no growth, no malignancy. No plans for chest tube placement. Eliquis has been resumed. White count 8.5. Hemoglobin 7.7. Platelets 146. Sodium 139. Potassium 3.9. Bicarb 29. BUN 96. Creatinine 3.9. The patient is seen today April 09, 2023 in follow-up on the regular medical floor. He is resting comfortably in bed. Awake and alert in no acute distress. Maintaining O2 saturations in the 90s on 2 L/min per nasal cannula. He denies any worsening shortness of breath, cough or congestion. No new labs today. No chest x-ray today. He is anticoagulated with Eliquis. The patient is seen today April 10, 2023 in follow-up on the regular medical floor. He is awake and alert in no acute distress. Resting fairly comfortably in bed. Today's chest x-ray shows reaccumulation of fluid in the left chest. He is currently on DuoNeb inhalation, Pulmicort inhalations. Remains on oral diuretics. No new labs today. Pleural fluid cultures revealed no growth. He is anticoagulated with Eliquis. The patient is seen today April 11, 2023 in follow-up on the regular medical floor. He is sitting up in bed. Awake and alert in no acute distress. Maintaining O2 saturations in the 90s on 2 L/min per nasal cannula. Sodium 134. Potassium 4.5. Bicarb 30. BUN 130. Creatinine 3.55. Glucose 88. Ultrasound of the chest did reveal a significant left-sided pleural effusion. He under went a second thoracentesis today with 1.2 L of dark yellow fluid removed. Unfortunately, follow-up chest x-ray does reveal a moderate to large left pneumothorax. The patient remains asymptomatic. Repeat chest x-ray pending. He remains on bronchodilators. Remains on oral diuretics. Plan a -1.1 L balance. The patient is seen today April 12, 2023 in follow-up on the regular medical floor. He is awake and alert in no acute distress. Maintaining O2 saturations in the 90s on 2 L/min per nasal cannula. He denies any worsening shortness of breath, cough or congestion. Denies any chest pain. Follow-up chest x-ray continues to show a left apical hydropneumothorax. Slight improvement today compared to yesterday. Pleural fluid cultures revealed no growth. White count 6.5. Hemoglobin 7.6. Platelets 186. Stool for occult blood was positive. He is continued on bronchodilators. Continued on diuretics. Currently in a -700 mL balance. On today's evaluation of 04/13/2023, the patient is being seen for a follow-up. Noted the patient has an acute hypoxic respiratory failure due to CHF and bilateral pleural effusion. Noted the patient had a large left-sided pleural effusion and a small right-sided pleural effusion. His proBNP level was elevated. He underwent a left thoracentesis on 04/05/2023 with a total of 1.4 L of fluid removed that was transudative. Subsequent CAT scan of the chest showed a 15 to 20% pneumothorax. Chest x-ray on 04/10/2023 showed significant recommendation of the left-sided pleural effusion and at the same time there was a persistent pneumothorax on the left. The patient underwent another thoracentesis on 04/11/2023 with a total of 1.2 L of fluid was removed. I reviewed the chest x-ray from today and there is a large stable left-sided hydropneumothorax. Based on that, I inserted the Thora vent in this patient and immediately around 600 cc of pleural fluid was drained in addition to air. The follow-up chest x-ray that was done showed decrease in the left-sided pneumothorax and the thoracostomy tube is in place and attached to suction with persistent air leak. The patient remains clinically and hemodynamically stable on 2 L of oxygen by nasal cannula with a pulse ox of 98%. The patient remains on [facility], on p.o. Lasix 40 mg twice a day. The patient is also on metoprolol 12.5 mg p.o. daily. His echocardiogram that was done on 04/02/2023 showed a left-ventricular ejection fraction of around 30 to 35% along with biatrial enlargement and moderate MR and moderate aortic stenosis/severe aortic stenosis. Moderate degree of tricuspid regurgitation was also present. On today's evaluation of 04/14/2023, I am seeing the patient for a follow- up.Patient has no specific complaints. The Thora vent is still in place and attached to suction. The total amount of output in terms of fluid from the left lung was in the order of 800 cc from yesterday. There is no persistent air leak. I am ordering a urgent chest x-ray to follow-up on the pneumothorax. Otherwise, the patient has no specific complaints. The patient is still on Lasix 40 mg p.o. twice a day. Rest of the medications are essentially unchan ged. Labs from today shows a sodium level of 135, potassium of 5.2, BUN is 124 with a creatinine of 4.1 and a potassium level is at 5.2. Echocardiogram is showing impaired LV function with an ejection fraction of 35% with moderate MR, severe aortic stenosis and bilateral atrial enlargement. The patient is having some fecal occult blood positive and the patient was taken off anticoagulation for now. EGD EGD that was done on 04/13/2023 showed erosive esophagitis and gastritis. On today's evaluation of 04/15/2023, the patient is able to sit up in a chair. He is calm and comfortable. The output from the left sided Thora vent has improved and the fluid output has dropped significantly over the past 24 hours. Repeat chest x-ray was done and the patient continues to have a very trace left apical pneumothorax. There is also some limited subcutaneous emphysema. Overall, the patient is doing well. No significant respiratory distress and the patient was transitioned to room air oxygen with a pulse ox of 94%. The patient is currently on Lasix 40 mg p.o. twice a day. He is on DuoNeb nebulized treatments [id number]. Renal function is being monitored. BUN is at 131 with a creatinine of 4.4 and sodium levels at 134. The WBC count of 8.4 with a hemoglobin of 7.2. Note that the total vent is still faster suction. There is no evidence of any air leak. Suction is being applied in regards to his left- sided pleural effusion which seems to be adequately drained at this point in time. On today's evaluation of 04/16/2023, the patient is being seen for a follow-up. He is doing well. No specific complaints. I repeated the chest x-ray earlier this morning and there was no evidence of any pneumothorax. No evidence of any air leak and I took the opportunity to remove the Thora vent from his left lung. He remained stable and the patient is currently on 2 L of oxygen by nasal cannula with a pulse ox of 96%. Denies having any specific complaints. He has chronic kidney disease and the patient is being monitored by nephrology. Hemoglobin today is at 6.78 the patient does not have any acute signs of GI bleeding. The patient had also a potassium level of 5.4. The patient was seen by nephrology and the patient will be given another dose of Lokelma 10 g and the patient is still maintained on Lasix 40 mg p.o. twice a day. Bronchodilators still being given in the form of DuoNeb nebulized treatments [id number] 4 times a day. The patient is on Aranesp. The patient is also scheduled to receive unit of packed RBC today. On today's evaluation of 04/17/2023, the patient respite status is stable and the patient is currently on 3 L O2 nasal cannula With a pulse ox of 97%. A repeat chest x-ray was done today and shows no evidence of any pneumothorax. The pat ient has developed a small left-sided pleural effusion. Otherwise, the patient is stable. Hemoglobin is at 7.9 with a white cell count of 7. Sodium level is at 132 with a potassium level of 5.8. The BUN is up to 143 with a creatinine of 5.0 as the patient has an acute on top of chronic kidney failure. His creatinine has been steadily on the rise. Nephrology on the case for now. Patient remains on Lasix 40 mg p.o. twice a day. On today's evaluation of 04/18/2023, respiratory status is stable and the patient has no respiratory difficulties. Nevertheless, there has been progressive worse quinn renal function and on today's evaluation his sodium level is at 135 with a potassium level of 5.9. The BUN is up to 153 with a creatinine of 5.2. Nephrology on the case and the patient was given a temporary dialysis catheter and the patient was started on hemodialysis for an acute on top of chronic kidney disease. He was started on hemodialysis today on 04/18/2023. He has a right femoral temporary dialysis catheter in place. He is feeling well. No other major respiratory difficulties. Any hemodynamic instability. 04/19/2023, the patient has no specific complaints. The patient was started on hemodialysis on 04/18/2023. He tolerated dialysis well with a total of 900 cc of ultrafiltration. He is resting comfortably in bed. No dialysis for today and this will be done tomorrow on 04/20/2023. No respiratory difficulties and he remains on 2 L of oxygen by nasal cannula. No cough or sputum production. No altered mentation. Potassium level today is at 5.2 with a BUN of 110 and a cre atinine of 3.7. WBC count 7.2 with a hemoglobin of 8.5. Objective - Vital Signs Vital signs: Vital Signs Temp 96.8 F L 04/19/23 07:05 Pulse 72 04/19/23 09:28 Resp 18 04/19/23 07:05 BP 122/69 04/19/23 07:05 Pulse Ox 97 04/19/23 09:18 FiO2 Intake & Output 04/18/23 04/19/23 04/19/23 18:59 06:59 18:59 Intake Total 400 480 Output Total 1140 Balance -740 480 Intake: Oral 480 Hemodialysis 400 Output: Urine 240 Hemodialysis 900 Other: Voiding Method Indwelling Catheter Indwelling Catheter Indwelling Catheter - Exam GENERAL EXAM: Alert, pleasant 87-year-old male, resting comfortably in bed, on room air oxygen for now HEAD: Normocephalic and atraumatic EYES: Normal reaction of pupils, equal size. NOSE: Clear with pink turbinates. THROAT: Mild erythema, no exudates NECK: No masses, no JVD. CHEST: No chest wall deformity. LUNGS: Equal air entry with right basilar inspiratory crackles. Diminished in the left lung base. The patient has a left-sided Thora vent attached to a Ple ur-evac with no evidence of any air leak and the output is minimal CVS: S1 and S2 normal with no audible murmur, regular rhythm. No extra heart sounds ABDOMEN: No hepatosplenomegaly, active bowel sounds, no guarding or rigidity. SPINE: No scoliosis or deformity SKIN: No rashes CENTRAL NERVOUS SYSTEM: No focal deficits, tone is normal in all 4 extremities. EXTREMITIES: There is moderate bilateral lower extremity nonpitting edema. No clubbing, or cyanosis. Peripheral pulses are intact. - Labs CBC & Chem 7: 04/19/23 06:40 04/19/23 17:12 Labs: Abnormal Lab Results - Last 24 Hours (Table) 04/19/23 04/19/23 Range/Units 06:40 06:40 RBC 2.66 L (4.30-5.90) m/uL Hgb 8.5 L (13.0-17.5) gm/dL Hct 26.4 L (39.0-53.0) % RDW 16.8 H (11.5-15.5) % Sodium 133 L (137-145) mmol/L Potassium 5.2 H (3.5-5.1) mmol/L Chloride 96 L (98-107) mmol/L BUN 110 H* (9-20) mg/dL Creatinine 3.72 H (0.66-1.25) mg/dL Phosphorus 4.7 H (2.5-4.5) mg/dL Assessment and Plan Plan: Acute hypoxemic respiratory failure, secondary to acute systolic CHF exacerbation and fluid overload. Chest x-ray shows cardiomegaly, pulmonary vascular congestion, and interstitial edema. Patient also has moderate to large left-sided pleural effusion and a small right pleural effusion. NT proBNP was elevated at 57,800. Status post left-sided thoracentesis April 05, 2023 with 1.4 L of straw-colored fluid removed. Fluid analysis transudate, cytology for malignancy. CT scan of the chest and follow-up chest x-ray reveals stable hydropneumothorax of approximately 15 to 20%. Chest x-ray today April 10, 2023 shows significant reaccumulation of fluid in the left chest. Ultrasound reveals a recurrent left pleural effusion measuring 10.4 cm. A second thoracentesis was performed April 11, 2023 with 1.2 L of fluid removed. For now, the patient has a Thora vent and additional 800 cc of fluid was drained through the Thora vent since insertion. For now, the repeat chest x-ray today shows no evidence of any pneumothorax and minimal residual effusion in the left lung base. The Thora vent was removed on 04/16/2023 and repeat chest x-ray on 04/17/2023 shows no evidence of any pneumothorax left-sided pneumothorax post procedure,, recovered and the Thora vent was removed on 04/16/2023 and there is no residual pneumothorax on subsequent chest x-ray that was done today Systolic heart failure with ejection fraction of 30 to 35% Moderate to severe aortic stenosis Moderate mitral regurgitation Acute on chronic kidney disease, creatinine is on the rise and the patient also developed some mild hyperkalemia, started on hemodialysis Severe hyperkalemia, improved Lactic acidosis, improved Chronic obstructive pulmonary disease, stable History of paroxysmal atrial fibrillation, currently on no anticoagulants Benign prostatic hyperplasia Anemia of chronic disease, patient reportedly received 1 unit PRBC at [facility], current hemoglobin is stable at 8.5 Erosive esophagitis and gastritis Plan: Respiratory status is stable Right femoral dialysis catheter has been inserted The patient will be started on hemodialysis on 04/18/2023 and the next dialysis is on 04/20/2023 Nephrology to monitor renal function and the potassium . Repeat chest x-ray shows a small left-sided pleural effusion without any evidence of pneumothorax on 04/17/2023 Patient is currently on 2 L of O2 nasal cannula Monitor renal function Continue Lasix 40 mg p.o. twice a day Monitor renal function Hemoglobin is stable and there is no evidence of any GI bleed Placed the anticoagulation on hold due to concerns of GI bleed
--- NOTE | 2023-04-20 02:03 | P.PN ---
Subjective Progress Note Date: 04/19/23 Patient is a 87-year-old white male with past medical history significant for chronic kidney disease, congestive heart failure, atrial fibrillation anticoagulated on Eliquis, hyperlipidemia, COPD, and BPH, who was transferred from [facility] for severe hyperkalemia and acute kidney injury. P hiwot has been complaining of shortness of breath and weakness for a few days. Patient also complaining of sore throat. Patient weakness and shortness of breath progressed so he eventually presented to [facility] where he was evaluated, patient was found to have elevated potassium levels of 8.4, patient was given hyperkalemia protocol and received sodium bicarb, Lokelma, insulin and dextrose. Chest x-ray done showed large left pleural effusion small right pleural effusion, patient was transferred to [facility]. Patient has been complaining of shortness of breath on exertion and rest. Denies any chest pain. There is complaint of swelling of lower extremities. Patient complaining of nonproductive cough. Denies any fevers or chills Patient admitted to internal medicine service 04/03. Patient seen and examined. 2D echo done showed LVEF of 35% with global hypokinesis, severe biatrial enlargement, moderate mitral regurg, severe aortic stenosis. 04/04. Patient seen and examined. States breathing is improving, still gets short of breath on exertion. 04/05. Patient seen and examined. Patient being planned for thoracentesis this morning with pulmonary medicine. States breathing is improved. Denies any nausea or vomiting 04/06. Patient seen and examined. States breathing has improved, feels much better after thoracentesis yesterday. Labs done this morning showed WBC 8.7, hemoglobin 7.7, platelet count 139, sodium 139, potassium 4.2, BUN 90, creatinine 4 04/07/2023 Patient is currently sitting up in the chair. Awake alert and oriented 3. Currently on 2 L oxygen via nasal cannula. Patient is being cannula on by mouth twice a day. Also on DuoNeb's and Pulmicort inhalation. No comments of nausea or vomiting. Tolerating oral diet. No bowel movement today. Laboratory data showed sodium 138 potassium 4.0 chloride 95 BUN 91.1 and creatinine 4.0 Patient is being followed by pulmonary and nephrology. Chest x-ray showed increasing consolidation and pleural effusion on the left. Likely represent a hydropneumothorax of approximately 5-10% pneumothorax noted. No significant interval change. 04/08/2023 Patient is currently sitting which it. Awake alert and oriented 3. requiring oxygen at a 2 L via nasal cannula. pleural fluid cultures showed no growth. No plans for chest tube placement. Pulmonary is on board. laboratory data showed sodium 139, potassium 3.9, chloride 95, BUN 96.5 and creatinine 3.1. Nephrology and pulmonology is on board. 04/09/2023 Patient is sitting in the chair. Awake alert and oriented 3. Requiring 2 L oxygen with nasal cannula. Patient does have home oxygen. Patient has been afebrile. Able to tolerate oral diet. Pleural fluid culture is negative. Cytology is negative for malignancy.. Repeat chest x-ray was ordered for tomorrow. No plan for chest tube placement at this time. Pulmonary is on board. No new laboratory data today. 04/11. Patient seen and examined. Repeat chest x-ray done showed pneumothorax moderate to large left, currently not in respiratory distress. Denies any blood in the stools 04/12. Patient seen and examined. Labs done this morning showed WBC 6.5, hemoglobin 7.6, platelet count 186, sodium 130, potassium 4.8, BUN 122, creatinine 3.9. FOBT was positive, surgery was consulted, they recommended doing EGD which is scheduled for tomorrow morning. N.p.o. at midnight 04/13. Patient seen and examined. Patient went for EGD this morning which heide wed Squamocolumnar junction 41 cm from the incisors,Diaphragmatic hiatus at 41 cm,LA grade B erosive esophagitis,Acute gastritis with bleeding. 04/14. Patient seen examined. Patient had left-sided Thora vent placed. Shortness of breath has improved. Denies any nausea or vomiting. 04/15/2023 Patient is seen and evaluated in follow-up this morning continues on 3 L via nasal cannula currently weaning FiO2 as tolerated. Patient being followed by pulmonary recommending follow-up chest x-ray to monitor left-sided pneumothorax. Patient continues with left Thora vent and pulmonary discussing possibly removing the chest tube. Patient also being followed by cardiology as well as nephrology with CHF exacerbation along with acute on chronic kidney disease exacerbation. Patient has had prolonged hospitalization and generalized weakness and patient reports will be returning home and has support at the home and will continue with rehab in the outpatient setting. Patient is adamant he is going home once discharged. Hemoglobin is stable above 7 at 7.2 today white count remains normal, sodium is 134 with a potassium of 5.4, BUN is 131 and creatinine is 4.4, LFTs slightly trending down and C. difficile testing from yesterday was negative. Patient continues on oral Lasix. Potassium slightly elevated today and was given a dose of Lokelma. Will follow-up on repeat labs. Patient was continued on scheduled lactulose per surgery recommendations and will make as needed as patient is reporting having loose stools. 04/16/2023 Patient is seen in follow-up today status post chest x-ray today that showed a trace pneumothorax on the left and patient is scheduled to have the thoracotomy tube removed. Hemoglobin this morning slightly low at 6.7 and will transfuse 1 unit of PRBCs and follow-up on repeat labs later this afternoon. Patient continues on 3 L via nasal cannula reporting continued shortness of breath although no worse. Kidney functions continue with an elevated BUN of 138 and creatinine is 4.5. Nephrology is following. Potassium remains elevated and is status post a dose of Lokelma and patient has been given DDAVP today. Will follow-up with repeat labs. Encouraged increase activity as tolerated recommend PT/OT therapy evaluation. General surgery following as well with plans of endoscopic intervention including EGD and colonoscopy once more stable. Possibly Thursday. Anticoagulation remains on hold. 04/17/2023 Patient is seen in follow-up today with multiple medical consultations following. Patient had chest tube removed maintained on 3 L reports tolerating well with no worsening shortness of breath. Kidney functions continue to worsen with nephrology following recommending renal replacement. Vascular surgery consulted for dialysis cath placement. Patient is afebrile with no reported chest pain or palpitations noted. General surgery also following with plans on colonoscopy on Thursday. Hemoglobin is stable currently. Will follow-up with repeat labs and continue to monitor closely. Given significant comorbidities, prognosis is guarded. 3-2 24 Patient is currently lying in the bed. Awake alert and oriented x 3. Patient states that he has difficulty breathing and tightness in the chest. Currently requiring oxygen at 2 L via nasal cannula. Otherwise patient was found to be hyperkalemic potassium 5.9. Patient was placed on femoral catheter and was started on hemodialysis today. Denies any nausea or vomiting. Tolerating oral diet. No headache or dizziness or lightheadedness. Hemoglobin was 7.9 this morning. Laboratory data showed sodium 135 potassium 5.9 chloride 90 bicarb is 26.2 anion gap 18.8, BUN 153 and creatinine 5.2 and GFR 10 calcium 9.1. 04/19/2023 Patient is lying in the bed. Awake alert and oriented x 3. Patient did tolerate hemodialysis yesterday. Hemodialysis will be tomorrow. Currently requiring 2 L oxygen via nasal cannula. Afebrile. No cough or sputum production. Patient states that he feels better. No nausea or vomiting. Tolerating oral diet. Laboratory work showed WBC 7.2 hemoglobin 8.5 and platelets 194 Sodium 133 potassium 5.2 chloride 96 bicarb is 28 BUN 110 and creatinine 3.7 creatinine phosphorus 4.7. Nephrology and pulmonary is on board. Current medications reviewed. REVIEW OF SYSTEMS: CONSTITUTIONAL: No fever, no malaise,. CARDIOVASCULAR: No chest pain, no palpitations, no syncope. PULMONARY: As mentioned above GASTROINTESTINAL: Reports of diarrhea, no nausea, no vomiting, no abdominal pain. NEUROLOGICAL: No headaches, no weakness, PHYSICAL EXAMINATION: GENERAL: The patient is alert and oriented x3, not in any acute distress. Well developed, well nourished. Elderly appearing, ill-appearing, thin built HEENT: Pupils are round and equally reacting to light. EOMI. No scleral icterus. No conjunctival pallor. Normocephalic, atraumatic. No pharyngeal erythema. No thyromegaly. CARDIOVASCULAR: S1 and S2 muffled PULMONARY: Coarse breath sound bilaterally, diminished at the bases, crackles audible, post left Thora vent removal and dressing is intact on the chest ABDOMEN: Soft, nontender, nondistended, normoactive bowel sounds. No palpable organomegaly. MUSCULOSKELETAL: No joint swelling or deformity. EXTREMITIES: No cyanosis, clubbing, or pedal edema. NEUROLOGICAL: Gross neurological examination did not reveal any focal deficits. Diffusely weak SKIN: No rashes. Assessment: Hyperkalemia secondary to OMA and metabolic acidosis. Acute on chronic kidney disease with worsening kidney functions. Patient was initiated on hemodialysis on 04/18/2023. Acute hypoxic respiratory failure secondary to CHF exacerbation as well as large left sided pleural effusion and small right, status post left-sided thoracentesis x 2 recently and repeat 1 done on 04/11/2023 with approximately 1.2 L removed Moderate left-sided pneumothorax postprocedure status post Thora vent placement, Thora vent being removed on 04/16/2023 Acute on chronic systolic congestive heart failure exacerbation, EF is 30 to 35% Acute on chronic gastritis with bleeding noted on EGD. 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 Patient scheduled to undergo colonoscopy on Thursday Anemia, likely chronic, transfuse if 7 or less History of moderate to severe aortic stenosis paroxysmal A-fib, currently rate controlled COPD, acute exacerbation Lactic acidosis, resolved Bilateral pleural effusion status post thoracentesis x 2 this admission GI prophylaxis DVT prophylaxis. Anticoagulation, Eliquis is on hold due to drop in hemoglobin and suspected GI bleed. Full code Plan: Patient was started on hemodialysis on 04/18/2023. Next hemodialysis tomorrow. Patient was continued with Thora vent and repeat chest x-ray showing improvement and chest tube removed and tolerating thus far. Patient continues on 2 L via nasal cannula recommend to wean FiO2 as tolerated Follow-up on repeat labs in the a.m. and monitor kidney functions along with electrolytes. Replace electrolytes per protocol. Kidney functions continue to worsen and potassium remains elevated despite multiple attempts at correcting with nephrology initiated on hemodialysis. Vascular surgery placed femoral temporary hemodialysis catheter. Patient has been continued on Lasix 40 mg twice daily. Continue with PPI. Eliquis, anticoagulation is on hold due to concern for GI bleed. Encouraged increase activity as tolerated as patient reports is going home. Recommend PT/OT therapy daily Due to multiple complex medical issues, prognosis is guarded Objective - Vital Signs Vital signs: Vital Signs Temp 97.7 F 04/19/23 19:56 Pulse 64 04/20/23 01:29 Resp 20 04/19/23 19:56 BP 123/59 04/19/23 19:56 Pulse Ox 97 04/19/23 19:56 FiO2 Intake & Output 04/19/23 04/19/23 04/20/23 06:59 18:59 06:59 Intake Total 480 Output Total 270 Balance 480 -270 Intake: Oral 480 Output: Urine 270 Other: Voiding Method Indwelling Catheter Indwelling Catheter Indwelling Catheter # Bowel Movements 2 - Labs CBC & Chem 7: 04/19/23 06:40 04/19/23 17:12 Labs: Abnormal Lab Results - Last 24 Hours (Table) 04/19/23 04/19/23 04/19/23 Range/Units 06:40 06:40 17:12 RBC 2.66 L (4.30-5.90) m/uL Hgb 8.5 L (13.0-17.5) gm/dL Hct 26.4 L (39.0-53.0) % RDW 16.8 H (11.5-15.5) % Sodium 133 L (137-145) mmol/L Potassium 5.2 H 5.2 H (3.5-5.1) mmol/L Chloride 96 L (98-107) mmol/L BUN 110 H* (9-20) mg/dL Creatinine 3.72 H (0.66-1.25) mg/dL Phosphorus 4.7 H (2.5-4.5) mg/dL
[2023-04-20 08:54] LABS: African American GFR (CKD) 14 (>60 ml/min/1.73 sqM); Anion Gap 7 mmol/L; Calcium 8.8 mg/dL (8.4-10.2); Carbon Dioxide 29 mmol/L (22-30); Chloride 97 mmol/L (98-107); Glucose 92 mg/dL (74-99); Non-African American GFR(CKD) 12 (>60 ml/min/1.73 sqM); Potassium 4.8 mmol/L (3.5-5.1); Sodium 133 mmol/L (137-145)
[2023-04-20 09:01] LABS: Blood Urea Nitrogen 112 mg/dL (9-20)
[2023-04-20 11:32] LABS: Basophils # (A) 0.03 X 10*3/uL (0.00-0.10); Basophils % (A) 0.4 %; Eosinophils # (A) 0.42 X 10*3/uL (0.04-0.35); Eosinophils % (A) 5.9 %; HCT 25.5 % (39.6-50.0); HGB 8.2 g/dL (13.0-17.0); Lymphocytes # (A) 1.03 X 10*3/uL (0.90-5.00); Lymphocytes % (A) 14.4 %; MCH 31.2 pg (27.0-32.0); MCHC 32.2 g/dL (32.0-37.0); Mean Platelet Volume 12.3 FL (9.5-12.2); Monocytes # (A) 0.82 X 10*3/uL (0.20-1.00); Monocytes % (A) 11.5 %; NRBC Per 100 WBC 0 X 10*3/uL (0.00-0.01); Neutrophils # (A) 4.84 X 10*3/uL (1.80-7.70); Neutrophils % (A) 67.5 %; Platelet Count 206 X 10*3/uL (140-440); RBC 2.63 X 10*6/uL (4.40-5.60); RDW 15.6 % (11.5-14.5); WBC 7.16 X 10*3/uL (4.50-10.00)
--- NOTE | 2023-04-20 12:08 | P.PN ---
Subjective Patient is seen for follow-up for acute kidney injury on top of chronic kidney disease. Renal function had deteriorated and patient is started on hemodialysis on 04/18/2023. Status post temporary right femoral catheter placement Tolerated hemodialysis well on 04/18/2023 No significant complaints today. Seen on hemodialysis today. Objective - Vital Signs Vital signs: Vital Signs Temp 97.6 F 04/20/23 07:23 Pulse 60 04/20/23 09:27 Resp 19 04/20/23 08:28 BP 116/57 04/20/23 07:23 Pulse Ox 99 04/20/23 09:10 FiO2 Intake & Output 04/19/23 04/20/23 04/20/23 18:59 06:59 18:59 Intake Total 620 Output Total 270 Balance -270 620 Weight 124 kg Intake: Oral 620 Output: Urine 270 Other: Voiding Method Indwelling Catheter Indwelling Catheter Indwelling Catheter # Voids 4 # Bowel Movements 2 3 - Exam Patient is awake, comfortable, no acute distress Examination of the heart S1 and S2 Examination of the lungs bilateral breath sounds are heard Abdomen is soft nontender Examination lower extremities shows trace edema 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 Acute kidney injury secondary to ATN secondary to anemia and cardiorenal syndrome along with urinary retention. Renal function continued to worsen and therefore patient is started on hemodialysis on 04/18/2023. No obstruction noted on ultrasound. Elevated BUN secondary to GI bleed. Steroids have been discontinued 2. Chronic kidney disease stage IV with baseline creatinine near 3 secondary to nephrosclerosis and obstructive uropathy. 3. Hyperkalemia secondary to acute kidney injury, acidosis and urinary retention. Improved with medical management. 4. Volume overload with pleural effusions. Improved 5. Acute blood loss anemia status post blood transfusion this admission. Eliquis on hold. Possible GI bleed. Maintained on Aranesp 6. Acute on chronic systolic CHF ejection fraction of 30 to 35% with moderate mitral and tricuspid regurgitation. 7. Metabolic acidosis secondary to acute kidney injury improved with bicarb drip. 8. Urinary retention status post Riley catheter placement. On Flomax. 9. Left hydropneumothorax, stable Plan: Hemodialysis today with goal UF of about 1 L Patient will need IJ catheter placement as he will need to continue with outpatient hemodialysis.
[2023-04-20] MEDS ORDERED: PROPOFOL 10 MG/ML 20 ML VIAL IV ONE (13:15)
[2023-04-20] MEDS ORDERED: LIDOCAINE 1% INJ 10MG/ML (20 ML MDV) ONE (13:15)
[2023-04-20] MEDS: SODIUM CHLORIDE 0.9% 500 ML 500 ML IV ONE (13:30)
--- NOTE | 2023-04-20 13:56 | P.PCN ---
Date of Procedure: 04/20/23 Description of Procedure: PREOPERATIVE DIAGNOSIS: Anemia Gastrointestinal bleeding Aortic stenosis POSTOPERATIVE DIAGNOSIS: Anemia Gastrointestinal bleeding Severe sigmoid diverticulosis Aortic stenosis OPERATION: Colonoscopy to the cecum, ileocecal valve and appendiceal orifice SURGEON: Guerda Dueñas MD. ANESTHESIA: MAC. INDICATIONS: The patient is a 87-year-old male who presents with GI bleed and anemia. Benefits and risks were described and informed consent was obtained. DESCRIPTION OF PROCEDURE: The patient had undergone attempted Golytely prep 2 L daily for 2 days. The patient had been brought into the operating room and laid in the left lateral decubitus position. After adequate intravenous sedation, the rectum was examined with 2% lidocaine jelly. The rectal tone was within normal limits. An Olympus colonoscope was gently advanced to the cecum with clear visualization of the ileocecal valve including appendiceal orifice. The prep was good. Severe sigmoid diverticulosis was encountered without active bleeding. No active colonic bleeding was found. No intraluminal masses were identified within the colon. No colonic polyps were found. No evidence of focal colitis was found. Retroflexion of the scope demonstrated grade 2 internal hemorrhoids with recent inflammation. The colon was desufflated. The patient had tolerated the procedure well. Withdrawal time was over 6 minutes. FINDINGS: Aronchick preparation quality scale 2 (1-5) Internal hemorrhoids, grade 2 No thrombosed hemorrhoid identified. No arteriovenous malformations. No adenomatous polyps. No focal colitis. No stigmata of bleeding Moderate to severe sigmoid diverticulosis without stigmata of bleeding RECOMMENDATIONS: 1. Diet as tolerated
--- NOTE | 2023-04-20 14:02 | P.PCN ---
Date of Procedure: 04/20/23 Description of Procedure: PREOPERATIVE DIAGNOSIS: Dysphagia. POSTOPERATIVE DIAGNOSIS: Dysphagia. 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 SURGEON: Guerda Dueñas MD ANESTHESIA: MAC. INDICATIONS: The patient is a 87-year-old male who presents with dysphagia. He reports troubles with swallowing pills along her upper throat. Upper endoscopy was offered for further diagnostic evaluation and treatment. DESCRIPTION: The patient was brought into the endoscopy suite and laid in the left lateral decubitus position. An Olympus gastroscope was carefully passed along the posterior oropharynx. Upon entry into the proximal esophagus, a mild stricture was identified consistent with hypertensive upper esophageal sphincter. No erosion were found along the distal esophagus or ulcerations. The stomach was entered and no acute gastritis along the antrum with bleeding was identified. The third portion of the duodenum was unremarkable. A guidewire was placed through the scope into the stomach. The scope was removed. A 54-Prydeinig rigid dilator was placed to 45 cm from the incisors. The dilator was left in place between 2-3 minutes. The dilator and guidewire were removed. The scope was reentered along the proximal esophagus whereby the stricture had resolved of the upper esophagus. No full-thickness injury was found along the mucosa. Mild bleeding from the upper esophageal sphincter was identified. The stomach was desufflated. The patient tolerated the procedure well. FINDINGS: Hypertensive upper esophageal sphincter. Dilation of upper esophageal sphincter to 54 Prydeinig RECOMMENDATIONS: Salt water gargle twice daily for 5 days Liquid diet for today Ground diet in 24 to 48 hours Upper endoscopy as needed. Plan - Discharge Summary Discharge Rx Participant: No New Discharge Prescriptions: No Action Montelukast [Singulair] 10 mg PO DAILY Tamsulosin HCl [Flomax] 0.4 mg PO DAILY Apixaban [Eliquis] 2.5 mg PO BID hydrALAZINE HCL [Apresoline] 25 mg PO BID Oxybutynin Chloride [oxyBUTYnin chloride ER] 10 mg PO BID Furosemide [Lasix] 20 mg PO DAILY Lovastatin [Mevacor] 20 mg PO HS amLODIPine [Norvasc] 5 mg PO DAILY Budesonide [Pulmicort] 0.5 mg INHALATION RT-BID Albuterol Nebulized [Ventolin Nebulized] 2.5 mg INHALATION RT-Q6H PRN PRN Reason: Shortness Of Breath allopurinoL [Zyloprim] 100 mg PO BID Folic Acid 1 mg PO DAILY Discharge Medication List Montelukast [Singulair] 10 mg PO DAILY 07/30/15 [History] Tamsulosin HCl [Flomax] 0.4 mg PO DAILY 07/21/17 [History] Apixaban [Eliquis] 2.5 mg PO BID 08/28/22 [History] Lovastatin [Mevacor] 20 mg PO HS 08/28/22 [History] Albuterol Nebulized [Ventolin Nebulized] 2.5 mg INHALATION RT-Q6H PRN 04/02/23 [History] Budesonide [Pulmicort] 0.5 mg INHALATION RT-BID 04/02/23 [History] Folic Acid 1 mg PO DAILY 04/02/23 [History] Furosemide [Lasix] 20 mg PO DAILY 04/02/23 [History] Oxybutynin Chloride [oxyBUTYnin chloride ER] 10 mg PO BID 04/02/23 [History] allopurinoL [Zyloprim] 100 mg PO BID 04/02/23 [History] amLODIPine [Norvasc] 5 mg PO DAILY 04/02/23 [History] hydrALAZINE HCL [Apresoline] 25 mg PO BID 04/02/23 [History] Follow up Appointment(s)/Referral(s): [facility] [NON-STAFF] - As Needed Uriel Rhodes MD [STAFF PHYSICIAN] - 1 Week Doris Ashraf DO [Primary Care Provider] - 1-2 days Patient Instructions/Handouts: Chronic Kidney Disease (DC), Hyperkalemia (DC)
--- NOTE | 2023-04-20 14:12 | P.PN ---
Subjective Progress Note Date: 04/20/23 I am seeing this patient in consultation today 04/02/2023 for dyspnea and left- sided pleural effusion. He is currently in the emergency room. He was transferred from [facility] late last night for severe hyperkalemia and acute kidney injury. Patient is a 87-year-old white male with past medical history significant for chronic kidney disease, congestive heart failure, atrial fibrillation anticoagulated on Eliquis, hyperlipidemia, COPD, and BPH. Patient is technically a poor historian. Apparently, he is complaining of shortness of breath, weakness and sore throat over the last several days. This progressively worsened, and he went into [facility] to be evaluated. Patient was found to be severely hyperkalemic. He was also found to be anemic and was transfused 1 unit PRBC. He was transferred to [facility]. Patient is currently resting in bed, on 2 L/min nasal cannula, in no acute distress. He is weak and cannot sit up in bed without assistance. Becomes short of breath with any kind of activity. He denies any chest pain, heart palpitations, or syncopal events. He does have bilateral lower extremity swelling. He has an occasional nonproductive cough. Denies any sputum production, fevers. Chest x-ray on arrival shows cardiomegaly, pulmonary vascu lar congestion, and interstitial edema. There is a moderate to large left-sided pleural effusion and small right pleural effusion.. Patient was given 60 mg of IV Lasix. A Riley catheter was inserted, and the patient has approximately 800 mL of concentrated urine. Patient states that earlier in the week he has had troubles urinating. He voids about 2-3 times per day. Endorses dysuria. Denies any hematuria, urinary frequency. Urinalysis on arrival not concerning for UTI. Trace protein. He does have baseline chronic kidney disease. Ultrasound of the abdomen and bladder did not show any hydronephrosis. Potassium level on arrival was elevated at 8.4 and is down to 5 point 3:06 amp sodium bicarb, 10 g Lokelma, 10 units insulin, 2 A D50 W, calcium gluconate, and the above-mentioned Lasix. Nephrology has been consulted. There is D5W with 3 amp sodium bicarb infusing at 50 MLS per hour. BMP on arrival has a sodium 138, testing 8.4, chloride 108, serum bicarb 18, BUN 74, creatinine 3.68, and glucose 85. Lactic acid level was 3.8 on arrival and is down to 1.6. Troponin less daniel n 0.012. NT proBNP 57,800. ECG shows normal sinus rhythm with chronic left bundle branch block without any obvious hyperkalemic changes. CBC on arrival: WBC count 8.4, hemoglobin 10.7, hematocrit 34, platelets 121. Group A strep negative. No signs of bleeding. Patient has chronic anemia. Patient denies any acute blood loss. No bloody bowel movements, melena, hematemesis. No abdominal pain or diarrhea. Vital signs are stable. The patient is seen today April 03, 2023 in follow-up in the emergency department. He is currently sitting up on the stretcher. Awake and alert in no acute distress. He is breathing a bit easier today compared to yesterday. He states he is about 50% better. He is still somewhat bronchospastic and wheezing. White count 8.6. Hemoglobin 8.1. Platelets 127. Sodium 139. Potassium 5.0. BUN 89. Creatinine 4.02. Glucose 118. He is continued on IV diuretics. Anticoagulated with Eliquis. Continued on bronchodilators. Currently in a -1.2 L balance. Making good urine. The patient is seen today April 04, 2023 in follow-up on the regular medical floor. He is awake and alert in no acute distress. Resting fairly comfortably in bed. Denies any worsening shortness of breath, cough or congestion. He is maintaining O2 saturation in the 90s on 2 L/min per nasal cannula. Chest x-ray does reveal increasing left pleural effusion and a right-sided pleural effusion. Echocardiogram confirms a right-sided pleural effusion measuring 11.9 cm, left- sided pleural effusion at 10.8 cm. The patient is currently on Eliquis this will be placed on hold for possible left-sided thoracentesis tomorrow. Count 9.0. Hemoglobin 7.8. Platelets 140. Sodium 140. Potassium 4.8. Bicarb 28. BUN 87. Creatinine 4.1. Glucose 88. He remains on Lasix 60 mg IV twice a day. Currently net -1.5 L balance The patient is seen today April 05, 2023 in follow-up on the regular medical floor. He is currently sitting up in bed. Awake and alert in no acute distress. He is maintaining O2 saturations in the 90s 2 L/min per nasal cannula. He is been afebrile. Hemodynamically stable. He did undergo a left- sided thoracentesis today with 1.4 L of straw-colored fluid removed. Fluid sent for analysis and cytology. Follow-up chest x-ray reveals a tiny left apical pneumothorax. Sodium 137. Potassium 4.1. Bicarb 31. BUN 97. Creatinine 3.86. Glucose 101. Remains on IV diuretics. Currently in a -2.8 L balance. The patient is seen today April 06, 2023 in follow-up on the regular medical floor. He is awake and alert no acute distress. He is resting comfortably in bed. He is maintaining good O2 saturations in the 90s on 2 L/min per nasal cannula. He remains on IV diuretics. Currently net -2.7 L balance. He is status post left-sided thoracentesis yesterday with 1.4 L of straw-colored fluid removed. Cytology pending. Fluid analysis transudate with a total protein of 2.6 and an LDH of 80. Today's chest x-ray shows small bilateral effusions. No evidence of pneumothorax. Count 8.7. Hemoglobin 7.7. Platelets 139. Sodium 1 39. Potassium 4.2. Bicarb 29. BUN 91. Creatinine 4.0. The patient is seen today April 07, 2023 in follow-up on the regular medical floor. He is resting comfortably in bed. Awake and alert in no acute distress. Maintaining O2 saturations in the 90s on 2 L/min per nasal cannula. He is cont inued on bronchodilators and oral diuretics. Currently net -1.2 L balance. Follow-up chest x-ray revealed creasing consolidation and pleural effusion on the left. Likely represents a hydropneumothorax of approximately 5 to 10% pneumothorax noted. No significant change. The patient is seen today April 08, 2023 in follow-up on the regular medical floor. He is awake and alert in no acute distress. Maintaining O2 saturations in the 90s on 2 L/min per nasal cannula. Laying in bed. CT scan of the chest revealed moderate-sized bilateral pleural effusions. Left effusion appears loculated and there is additionally a left anterior pneumothorax at approximately 15 to 20%. Consolidation and partial collapse of the left lung. Atelectasis in the right posterior lung. Pleural fluid cultures revealed no growth, no malignancy. No plans for chest tube placement. Eliquis has been resumed. White count 8.5. Hemoglobin 7.7. Platelets 146. Sodium 139. Potassium 3.9. Bicarb 29. BUN 96. Creatinine 3.9. The patient is seen today April 09, 2023 in follow-up on the regular medical floor. He is resting comfortably in bed. Awake and alert in no acute distress. Maintaining O2 saturations in the 90s on 2 L/min per nasal cannula. He denies any worsening shortness of breath, cough or congestion. No new labs today. No chest x-ray today. He is anticoagulated with Eliquis. The patient is seen today April 10, 2023 in follow-up on the regular medical floor. He is awake and alert in no acute distress. Resting fairly comfortably in bed. Today's chest x-ray shows reaccumulation of fluid in the left chest. He is currently on DuoNeb inhalation, Pulmicort inhalations. Remains on oral diuretics. No new labs today. Pleural fluid cultures revealed no growth. He is anticoagulated with Eliquis. The patient is seen today April 11, 2023 in follow-up on the regular medical floor. He is sitting up in bed. Awake and alert in no acute distress. Maintaining O2 saturations in the 90s on 2 L/min per nasal cannula. Sodium 134. Potassium 4.5. Bicarb 30. BUN 130. Creatinine 3.55. Glucose 88. Ultrasound of the chest did reveal a significant left-sided pleural effusion. He under went a second thoracentesis today with 1.2 L of dark yellow fluid removed. Unfortunately, follow-up chest x-ray does reveal a moderate to large left pneumothorax. The patient remains asymptomatic. Repeat chest x-ray pending. He remains on bronchodilators. Remains on oral diuretics. Plan a -1.1 L balance. The patient is seen today April 12, 2023 in follow-up on the regular medical floor. He is awake and alert in no acute distress. Maintaining O2 saturations in the 90s on 2 L/min per nasal cannula. He denies any worsening shortness of breath, cough or congestion. Denies any chest pain. Follow-up chest x-ray continues to show a left apical hydropneumothorax. Slight improvement today compared to yesterday. Pleural fluid cultures revealed no growth. White count 6.5. Hemoglobin 7.6. Platelets 186. Stool for occult blood was positive. He is continued on bronchodilators. Continued on diuretics. Currently in a -700 mL balance. On today's evaluation of 04/13/2023, the patient is being seen for a follow-up. Noted the patient has an acute hypoxic respiratory failure due to CHF and bilateral pleural effusion. Noted the patient had a large left-sided pleural effusion and a small right-sided pleural effusion. His proBNP level was elevated. He underwent a left thoracentesis on 04/05/2023 with a total of 1.4 L of fluid removed that was transudative. Subsequent CAT scan of the chest showed a 15 to 20% pneumothorax. Chest x-ray on 04/10/2023 showed significant recommendation of the left-sided pleural effusion and at the same time there was a persistent pneumothorax on the left. The patient underwent another thoracentesis on 04/11/2023 with a total of 1.2 L of fluid was removed. I reviewed the chest x-ray from today and there is a large stable left-sided hydropneumothorax. Based on that, I inserted the Thora vent in this patient and immediately around 600 cc of pleural fluid was drained in addition to air. The follow-up chest x-ray that was done showed decrease in the left-sided pneumothorax and the thoracostomy tube is in place and attached to suction with persistent air leak. The patient remains clinically and hemodynamically stable on 2 L of oxygen by nasal cannula with a pulse ox of 98%. The patient remains on [facility], on p.o. Lasix 40 mg twice a day. The patient is also on metoprolol 12.5 mg p.o. daily. His echocardiogram that was done on 04/02/2023 showed a left-ventricular ejection fraction of around 30 to 35% along with biatrial enlargement and moderate MR and moderate aortic stenosis/severe aortic stenosis. Moderate degree of tricuspid regurgitation was also present. On today's evaluation of 04/14/2023, I am seeing the patient for a follow- up.Patient has no specific complaints. The Thora vent is still in place and attached to suction. The total amount of output in terms of fluid from the left lung was in the order of 800 cc from yesterday. There is no persistent air leak. I am ordering a urgent chest x-ray to follow-up on the pneumothorax. Otherwise, the patient has no specific complaints. The patient is still on Lasix 40 mg p.o. twice a day. Rest of the medications are essentially unchan ged. Labs from today shows a sodium level of 135, potassium of 5.2, BUN is 124 with a creatinine of 4.1 and a potassium level is at 5.2. Echocardiogram is showing impaired LV function with an ejection fraction of 35% with moderate MR, severe aortic stenosis and bilateral atrial enlargement. The patient is having some fecal occult blood positive and the patient was taken off anticoagulation for now. EGD EGD that was done on 04/13/2023 showed erosive esophagitis and gastritis. On today's evaluation of 04/15/2023, the patient is able to sit up in a chair. He is calm and comfortable. The output from the left sided Thora vent has improved and the fluid output has dropped significantly over the past 24 hours. Repeat chest x-ray was done and the patient continues to have a very trace left apical pneumothorax. There is also some limited subcutaneous emphysema. Overall, the patient is doing well. No significant respiratory distress and the patient was transitioned to room air oxygen with a pulse ox of 94%. The patient is currently on Lasix 40 mg p.o. twice a day. He is on DuoNeb nebulized treatments [id number]. Renal function is being monitored. BUN is at 131 with a creatinine of 4.4 and sodium levels at 134. The WBC count of 8.4 with a hemoglobin of 7.2. Note that the total vent is still faster suction. There is no evidence of any air leak. Suction is being applied in regards to his left- sided pleural effusion which seems to be adequately drained at this point in time. On today's evaluation of 04/16/2023, the patient is being seen for a follow-up. He is doing well. No specific complaints. I repeated the chest x-ray earlier this morning and there was no evidence of any pneumothorax. No evidence of any air leak and I took the opportunity to remove the Thora vent from his left lung. He remained stable and the patient is currently on 2 L of oxygen by nasal cannula with a pulse ox of 96%. Denies having any specific complaints. He has chronic kidney disease and the patient is being monitored by nephrology. Hemoglobin today is at 6.78 the patient does not have any acute signs of GI bleeding. The patient had also a potassium level of 5.4. The patient was seen by nephrology and the patient will be given another dose of Lokelma 10 g and the patient is still maintained on Lasix 40 mg p.o. twice a day. Bronchodilators still being given in the form of DuoNeb nebulized treatments [id number] 4 times a day. The patient is on Aranesp. The patient is also scheduled to receive unit of packed RBC today. On today's evaluation of 04/17/2023, the patient respite status is stable and the patient is currently on 3 L O2 nasal cannula With a pulse ox of 97%. A repeat chest x-ray was done today and shows no evidence of any pneumothorax. The pat ient has developed a small left-sided pleural effusion. Otherwise, the patient is stable. Hemoglobin is at 7.9 with a white cell count of 7. Sodium level is at 132 with a potassium level of 5.8. The BUN is up to 143 with a creatinine of 5.0 as the patient has an acute on top of chronic kidney failure. His creatinine has been steadily on the rise. Nephrology on the case for now. Patient remains on Lasix 40 mg p.o. twice a day. On today's evaluation of 04/18/2023, respiratory status is stable and the patient has no respiratory difficulties. Nevertheless, there has been progressive worse quinn renal function and on today's evaluation his sodium level is at 135 with a potassium level of 5.9. The BUN is up to 153 with a creatinine of 5.2. Nephrology on the case and the patient was given a temporary dialysis catheter and the patient was started on hemodialysis for an acute on top of chronic kidney disease. He was started on hemodialysis today on 04/18/2023. He has a right femoral temporary dialysis catheter in place. He is feeling well. No other major respiratory difficulties. Any hemodynamic instability. 04/19/2023, the patient has no specific complaints. The patient was started on hemodialysis on 04/18/2023. He tolerated dialysis well with a total of 900 cc of ultrafiltration. He is resting comfortably in bed. No dialysis for today and this will be done tomorrow on 04/20/2023. No respiratory difficulties and he remains on 2 L of oxygen by nasal cannula. No cough or sputum production. No altered mentation. Potassium level today is at 5.2 with a BUN of 110 and a cre atinine of 3.7. WBC count 7.2 with a hemoglobin of 8.5. The patient is seen today April 20, 2023 in follow-up on the regular medical floor. He is currently sitting up in bed. Awake and alert in no acute distress. He is maintaining O2 saturations in the upper 90s on 2 L/min per nasal cannula. Afebrile. Hemodynamically stable. Currently receiving hemodialysis. The plan is for colonoscopy today as well. He is status post 1 unit of packed red blood cells this admission. Hemoglobin currently 8.2. Platelets 206. White count 7.1. Sodium 133. Potassium 4.8. Bicarb 29. BUN 112. Creatinine 4.19. He remains on remains on oral diuretics. Objective - Vital Signs Vital signs: Vital Signs Temp 97.6 F 04/20/23 07:23 Pulse 60 04/20/23 09:27 Resp 19 04/20/23 08:28 BP 116/57 04/20/23 07:23 Pulse Ox 99 04/20/23 09:10 FiO2 Intake & Output 04/19/23 04/20/23 04/20/23 18:59 06:59 18:59 Intake Total 620 200 Output Total 270 Balance -270 620 200 Weight 124 kg 56.245 kg Intake: IV 200 Oral 620 Output: Urine 270 Other: Voiding Method Indwelling Catheter Indwelling Catheter Indwelling Catheter # Voids 4 # Bowel Movements 2 3 - Exam GENERAL EXAM: Alert, pleasant 87-year-old male, resting comfortably in bed, on 2 L nasal cannula, in no apparent distress. HEAD: Normocephalic and atraumatic EYES: Normal reaction of pupils, equal size. NOSE: Clear with pink turbinates. THROAT: Mild erythema, no exudates NECK: No masses, no JVD. CHEST: No chest wall deformity. LUNGS: Equal air entry with right basilar inspiratory crackles. Diminished in the left lung base. CVS: S1 and S2 normal with no audible murmur, regular rhythm. No extra heart sounds ABDOMEN: No hepatosplenomegaly, active bowel sounds, no guarding or rigidity. SPINE: No scoliosis or deformity SKIN: No rashes CENTRAL NERVOUS SYSTEM: No focal deficits, tone is normal in all 4 extremities. EXTREMITIES: Right femoral hemodialysis catheter in place. There is moderate bilateral lower extremity nonpitting edema. Peripheral pulses are intact. - Labs CBC & Chem 7: 04/20/23 06:43 04/20/23 07:10 Labs: Abnormal Lab Results - Last 24 Hours (Table) 04/19/23 04/20/23 04/20/23 Range/Units 17:12 06:43 07:10 RBC 2.63 L (4.40-5.60) X 10*6/uL Hgb 8.2 L (13.0-17.0) g/dL Hct 25.5 L (39.6-50.0) % RDW 15.6 H (11.5-14.5) % MPV 12.3 H (9.5-12.2) FL Eosinophils # 0.42 H (0.04-0.35) X 10*3/uL Sodium 133 L (137-145) mmol/L Potassium 5.2 H (3.5-5.1) mmol/L Chloride 97 L (98-107) mmol/L BUN 112 H* (9-20) mg/dL Creatinine 4.19 H (0.66-1.25) mg/dL Assessment and Plan Assessment: Acute hypoxemic respiratory failure, secondary to acute systolic CHF exacerbation and fluid overload. Chest x-ray shows cardiomegaly, pulmonary vascular congestion, and interstitial edema. Patient also has moderate to large left-sided pleural effusion and a small right pleural effusion. NT proBNP was elevated at 57,800. Status post left-sided thoracentesis April 05, 2023 with 1.4 L of straw-colored fluid removed. Fluid analysis transudate, cytology for malignancy. CT scan of the chest and follow-up chest x-ray reveals stable hydropneumothorax of approximately 15 to 20%. Chest x-ray today April 10, 2023 shows significant reaccumulation of fluid in the left chest. Ultrasound reveals a recurrent left pleural effusion measuring 10.4 cm. A second thoracentesis was performed April 11, 2023 with 1.2 L of fluid removed. Moderate left-sided pneumothorax post procedure, Thora vent placed and subsequently removed 04/16/2023 Systolic heart failure with ejection fraction of 30 to 35% Moderate to severe aortic stenosis Moderate mitral regurgitation Acute on chronic kidney disease, creatinine is on the rise and the patient also developed some mild hyperkalemia, started on hemodialysis Severe hyperkalemia, improved post hemodialysis Lactic acidosis, improved Chronic obstructive pulmonary disease, stable History of paroxysmal atrial fibrillation, anticoagulated on Eliquis, currently normal sinus Benign prostatic hyperplasia Anemia of chronic disease, patient reportedly received 1 unit PRBC at [facility] and a second unit here Erosive esophagitis and gastritis Severe diverticulosis Plan: The patient was seen and evaluated Labs and medications reviewed Currently receiving hemodialysis Plan is for colonoscopy today Patient is stable and on 2 L Continue the current treatment plan Plan is for ECF placement with hemodialysis ability We will continue to follow I have personally seen and examined the patient, performed the documentation and the assessment and plan as written. Number of minutes spent on the visit: 10.
--- NOTE | 2023-04-21 06:06 | P.PN ---
Subjective Progress Note Date: 04/20/23 Patient is a 87-year-old white male with past medical history significant for chronic kidney disease, congestive heart failure, atrial fibrillation anticoagulated on Eliquis, hyperlipidemia, COPD, and BPH, who was transferred from [facility] for severe hyperkalemia and acute kidney injury. Patient has been complaining of shortness of breath and weakness for a few days. Patient also complaining of sore throat. Patient weakness and shortness of breath progressed so he eventually presented to [facility] where he was evaluated, patient was found to have elevated potassium levels of 8.4, patient was given hyperkalemia protocol and received sodium bicarb, Lokelma, insulin and dextrose. Chest x-ray done showed large left pleural effusion small right pleural effusion, patient was transferred to [facility]. Patient has been complaining of shortness of breath on exertion and rest. Denies any chest pain. There is complaint of swelling of lower extremities. Patient complaining of nonproductive cough. Denies any fevers or chills Patient admitted to internal medicine service 04/03. Patient seen and examined. 2D echo done showed LVEF of 35% with global hypokinesis, severe biatrial enlargement, moderate mitral regurg, severe aortic stenosis. 04/04. Patient seen and examined. States breathing is improving, still gets short of breath on exertion. 04/05. Patient seen and examined. Patient being planned for thoracentesis this morning with pulmonary medicine. States breathing is improved. Denies any nausea or vomiting 04/06. Patient seen and examined. States breathing has improved, feels much better after thoracentesis yesterday. Labs done this morning showed WBC 8.7, hemoglobin 7.7, platelet count 139, sodium 139, potassium 4.2, BUN 90, creatinine 4 04/07/2023 Patient is currently sitting up in the chair. Awake alert and oriented 3. Currently on 2 L oxygen via nasal cannula. Patient is being cannula on by mouth twice a day. Also on DuoNeb's and Pulmicort inhalation. No comments of nausea or vomiting. Tolerating oral diet. No bowel movement today. Laboratory data showed sodium 138 potassium 4.0 chloride 95 BUN 91.1 and creatinine 4.0 Patient is being followed by pulmonary and nephrology. Chest x-ray showed increasing consolidation and pleural effusion on the left. Likely represent a hydropneumothorax of approximately 5-10% pneumothorax noted. No significant interval change. 04/08/2023 Patient is currently sitting which it. Awake alert and oriented 3. requiring oxygen at a 2 L via nasal cannula. pleural fluid cultures showed no growth. No plans for chest tube placement. Pulmonary is on board. laboratory data showed sodium 139, potassium 3.9, chloride 95, BUN 96.5 and creatinine 3.1. Nephrology and pulmonology is on board. 04/09/2023 Patient is sitting in the chair. Awake alert and oriented 3. Requiring 2 L oxygen with nasal cannula. Patient does have home oxygen. Patient has been afebrile. Able to tolerate oral diet. Pleural fluid culture is negative. Cytology is negative for malignancy.. Repeat chest x-ray was ordered for tomorrow. No plan for chest tube placement at this time. Pulmonary is on board. No new laboratory data today. 04/11. Patient seen and examined. Repeat chest x-ray done showed pneumothorax moderate to large left, currently not in respiratory distress. Denies any blood in the stools 04/12. Patient seen and examined. Labs done this morning showed WBC 6.5, hemoglobin 7.6, platelet count 186, sodium 130, potassium 4.8, BUN 122, creatinine 3.9. FOBT was positive, surgery was consulted, they recommended doing EGD which is scheduled for tomorrow morning. N.p.o. at midnight 04/13. Patient seen and examined. Patient went for EGD this morning which s howed Squamocolumnar junction 41 cm from the incisors,Diaphragmatic hiatus at 41 cm,LA grade B erosive esophagitis,Acute gastritis with bleeding. 04/14. Patient seen examined. Patient had left-sided Thora vent placed. Shortness of breath has improved. Denies any nausea or vomiting. 04/15/2023 Patient is seen and evaluated in follow-up this morning continues on 3 L via nasal cannula currently weaning FiO2 as tolerated. Patient being followed by pulmonary recommending follow-up chest x-ray to monitor left-sided pneumothorax. Patient continues with left Thora vent and pulmonary discussing possibly removing the chest tube. Patient also being followed by cardiology as well as nephrology with CHF exacerbation along with acute on chronic kidney disease exacerbation. Patient has had prolonged hospitalization and generalized weakness and patient reports will be returning home and has support at the home and will continue with rehab in the outpatient setting. Patient is adamant he is going home once discharged. Hemoglobin is stable above 7 at 7.2 today white count remains normal, sodium is 134 with a potassium of 5.4, BUN is 131 and creatinine is 4.4, LFTs slightly trending down and C. difficile testing from yesterday was negative. Patient continues on oral Lasix. Potassium slightly elevated today and was given a dose of Lokelma. Will follow-up on repeat labs. Patient was continued on scheduled lactulose per surgery recommendations and will make as needed as patient is reporting having loose stools. 04/16/2023 Patient is seen in follow-up today status post chest x-ray today that showed a trace pneumothorax on the left and patient is scheduled to have the thoracotomy tube removed. Hemoglobin this morning slightly low at 6.7 and will transfuse 1 unit of PRBCs and follow-up on repeat labs later this afternoon. Patient continues on 3 L via nasal cannula reporting continued shortness of breath although no worse. Kidney functions continue with an elevated BUN of 138 and creatinine is 4.5. Nephrology is following. Potassium remains elevated and is status post a dose of Lokelma and patient has been given DDAVP today. Will follow-up with repeat labs. Encouraged increase activity as tolerated recommend PT/OT therapy evaluation. General surgery following as well with plans of endoscopic intervention including EGD and colonoscopy once more stable. Possibl y Thursday. Anticoagulation remains on hold. 04/17/2023 Patient is seen in follow-up today with multiple medical consultations following. Patient had chest tube removed maintained on 3 L reports tolerating well with no worsening shortness of breath. Kidney functions continue to worsen with nephrology following recommending renal replacement. Vascular surgery consulted for dialysis cath placement. Patient is afebrile with no reported chest pain or palpitations noted. General surgery also following with plans on colonoscopy on Thursday. Hemoglobin is stable currently. Will follow-up with repeat labs and continue to monitor closely. Given significant comorbidities, prognosis is guarded. 3-2 24 Patient is currently lying in the bed. Awake alert and oriented x 3. Patient states that he has difficulty breathing and tightness in the chest. Currently requiring oxygen at 2 L via nasal cannula. Otherwise patient was found to be hyperkalemic potassium 5.9. Patient was placed on femoral catheter and was started on hemodialysis today. Denies any nausea or vomiting. Tolerating oral diet. No headache or dizziness or lightheadedness. Hemoglobin was 7.9 this morning. Laboratory data showed sodium 135 potassium 5.9 chloride 90 bicarb is 26.2 anion gap 18.8, BUN 153 and creatinine 5.2 and GFR 10 calcium 9.1. 04/19/2023 Patient is lying in the bed. Awake alert and oriented x 3. Patient did tolerate hemodialysis yesterday. Hemodialysis will be tomorrow. Currently requiring 2 L oxygen via nasal cannula. Afebrile. No cough or sputum production. Patient states that he feels better. No nausea or vomiting. Tolerating oral diet. Laboratory work showed WBC 7.2 hemoglobin 8.5 and platelets 194 Sodium 133 potassium 5.2 chloride 96 bicarb is 28 BUN 110 and creatinine 3.7 creatinine phosphorus 4.7. Nephrology and pulmonary is on board. 04/20/2023 Patient is seen and evaluated in follow-up today currently receiving hemodialysis maintained on 2 to 3 L via nasal cannula. General surgery also following working on EGD with concerns of dysphagia postdialysis. Patient is currently n.p.o. and anticoagulation remains on hold. Stable hemoglobin of 8.2 today and will discuss further with surgery regarding anticoagulation after surgical report. Patient is currently afebrile with no reports of chest pain or shortness of breath. Patient tolerating diet with no reported nausea or vo miting. Patient is tolerating hemodialysis that was just started this week. Patient reports he continues to want to go home and case management following working on arranging possible outpatient hemodialysis as well as home care. Current medications reviewed. REVIEW OF SYSTEMS: CONSTITUTIONAL: No fever, no malaise,. CARDIOVASCULAR: No chest pain, no palpitations, no syncope. PULMONARY: As mentioned above GASTROINTESTINAL: Reports of diarrhea that is improving, no nausea, no vomiting, no abdominal pain. NEUROLOGICAL: No headaches, no weakness, PHYSICAL EXAMINATION: GENERAL: The patient is alert and oriented x3, Well developed, well nourished. Elderly appearing, ill-appearing, thin built HEENT: Pupils are round and equally reacting to light. EOMI. No scleral icterus. No conjunctival pallor. Normocephalic, atraumatic. No pharyngeal erythema. No thyromegaly. CARDIOVASCULAR: S1 and S2 muffled PULMONARY: Coarse breath sound bilaterally, diminished at the bases, crackles audible ABDOMEN: Soft, nontender, nondistended, normoactive bowel sounds. No palpable organomegaly. MUSCULOSKELETAL: No joint swelling or deformity. EXTREMITIES: No cyanosis, clubbing, or pedal edema. NEUROLOGICAL: Gross neurological examination did not reveal any focal deficits. Diffusely weak SKIN: No rashes. Assessment: Hyperkalemia secondary to OMA and metabolic acidosis. Acute on chronic kidney disease with worsening kidney functions. Patient was initiated on hemodialysis on 04/18/2023. Acute hypoxic respiratory failure secondary to CHF exacerbation as well as large left sided pleural effusion and small right, status post left-sided thoracentesis x 2 recently and repeat 1 done on 04/11/2023 with approximately 1.2 L removed Moderate left-sided pneumothorax postprocedure status post Thora vent placement, Thora vent removed on 04/16/2023 Acute on chronic systolic congestive heart failure exacerbation, EF is 30 to 35% Acute on chronic gastritis with bleeding noted on EGD. 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 Anticoagulation, in the form of Eliquis although is on hold due to drop in hemoglobin and suspected GI bleed. Full code Plan: Patient was started on hemodialysis on 04/18/2023. Next hemodialysis today General surgery following plans on EGD today which was done showing dysphagia with dysmotility status post dilatation and is being advanced on diet. Will discuss further with surgery regarding resuming anticoagulation Patient was continued with Thora vent and was removed on 04/16/2023. Patient continues on 2 L via nasal cannula recommend to wean FiO2 as tolerated Follow-up on repeat labs in the a.m. and monitor kidney functions along with electrolytes. Replace electrolytes per protocol. Kidney functions continue to worsen and potassium remains elevated despite multiple attempts at correcting with nephrology initiated on hemodialysis. Vascular surgery placed femoral temporary hemodialysis catheter. Will likely need permacath placed. Case management following arranging outpatient dialysis if needed Recommend PT/OT therapy daily as patient reports he is returning home and has had significantly increased weakness with prolonged hospitalization. Continue with PPI. Eliquis, anticoagulation is on hold due to concern for GI bleed. Due to multiple complex medical issues, prognosis is guarded The impression and plan of care has been dictated by Tania Reynoso, Nurse Practitioner as directed. Dr. David MD I have performed a history and examination and MDM of this patient, discussed the same with the dictator, and agree with the dictator's assessment and plan as written ,documented as a scribe. Based on total visit time, I have performed more than 50% of the visit. Objective - Vital Signs Vital signs: Vital Signs Temp 97.6 F 04/20/23 07:23 Pulse 60 04/20/23 09:27 Resp 19 04/20/23 08:28 BP 116/57 04/20/23 07:23 Pulse Ox 99 04/20/23 09:10 FiO2 Intake & Output 04/19/23 04/20/23 04/20/23 18:59 06:59 18:59 Intake Total 620 200 Output Total 270 Balance -270 620 200 Weight 124 kg 56.245 kg Intake: IV 200 Oral 620 Output: Urine 270 Other: Voiding Method Indwelling Catheter Indwelling Catheter Indwelling Catheter # Voids 4 # Bowel Movements 2 3 - Labs CBC & Chem 7: 04/20/23 06:43 04/20/23 07:10 Labs: Abnormal Lab Results - Last 24 Hours (Table) 04/19/23 04/20/23 04/20/23 Range/Units 17:12 06:43 07:10 RBC 2.63 L (4.40-5.60) X 10*6/uL Hgb 8.2 L (13.0-17.0) g/dL Hct 25.5 L (39.6-50.0) % RDW 15.6 H (11.5-14.5) % MPV 12.3 H (9.5-12.2) FL Eosinophils # 0.42 H (0.04-0.35) X 10*3/uL Sodium 133 L (137-145) mmol/L Potassium 5.2 H (3.5-5.1) mmol/L Chloride 97 L (98-107) mmol/L BUN 112 H* (9-20) mg/dL Creatinine 4.19 H (0.66-1.25) mg/dL
[2023-04-21 11:14] LABS: Basophils # (A) 0.03 X 10*3/uL (0.00-0.10); Basophils % (A) 0.5 %; Eosinophils # (A) 0.47 X 10*3/uL (0.04-0.35); Eosinophils % (A) 7.7 %; HCT 26.2 % (39.6-50.0); HGB 8.3 g/dL (13.0-17.0); Lymphocytes # (A) 0.99 X 10*3/uL (0.90-5.00); Lymphocytes % (A) 16.2 %; MCH 30.7 pg (27.0-32.0); MCHC 31.7 g/dL (32.0-37.0); Monocytes # (A) 0.81 X 10*3/uL (0.20-1.00); Monocytes % (A) 13.3 %; NRBC Per 100 WBC 0 X 10*3/uL (0.00-0.01); Neutrophils # (A) 3.78 X 10*3/uL (1.80-7.70); Platelet Count 182 X 10*3/uL (140-440); RDW 15.9 % (11.5-14.5)
[2023-04-21 11:36] LABS: Magnesium 2.2 mg/dL (1.5-2.4)
[2023-04-21 11:41] LABS: BUN/Creat Ratio 17.71 Ratio (12.00-20.00); Calcium 8.8 mg/dL (8.7-10.3); Carbon Dioxide 26.9 mmol/L (21.6-31.8); Chloride 98 mmol/L (96-109); Glucose 84 mg/dL (70-110); Potassium 4.4 mmol/L (3.5-5.5); Sodium 137 mmol/L (135-145)
--- NOTE | 2023-04-21 13:18 | P.PN ---
Subjective Patient is seen for follow-up for acute kidney injury on top of chronic kidney disease. Renal function had deteriorated and patient is started on hemodialysis on 04/18/2023. Status post temporary right femoral catheter placement Tolerated hemodialysis well yesterday No significant complaints today. Objective - Vital Signs Vital signs: Vital Signs Temp 98.4 F 04/21/23 07:10 Pulse 70 04/21/23 07:10 Resp 17 04/21/23 07:10 BP 117/55 04/21/23 07:10 Pulse Ox 97 04/21/23 07:10 FiO2 Intake & Output 04/20/23 04/21/23 04/21/23 18:59 06:59 18:59 Intake Total 200 Output Total 175 200 Balance 25 -200 Weight 56.245 kg 74.5 kg Intake: IV 200 Output: Urine 175 200 Other: Voiding Method Indwelling Catheter Indwelling Catheter Indwelling Catheter - Exam Patient is awake, comfortable, no acute distress Examination of the heart S1 and S2 Examination of the lungs bilateral breath sounds are heard Abdomen is soft nontender Examination lower extremities shows trace edema WEB DESIGNER exam grossly intact - Labs CBC & Chem 7: 04/21/23 08:31 04/21/23 08:31 Labs: Abnormal Lab Results - Last 24 Hours (Table) 04/21/23 04/21/23 Range/Units 08:31 08:31 RBC 2.70 L (4.40-5.60) X 10*6/uL Hgb 8.3 L (13.0-17.0) g/dL Hct 26.2 L (39.6-50.0) % MCHC 31.7 L (32.0-37.0) g/dL RDW 15.9 H (11.5-14.5) % Eosinophils # 0.47 H (0.04-0.35) X 10*3/uL Anion Gap 12.10 H (4.00-12.00) mmol/L BUN 62.0 H (9.0-27.0) mg/dL Creatinine 3.5 H (0.6-1.5) mg/dL Est GFR (CKD-EPI) 16 L (>=60) Microbiology - Last 24 Hours (Table) 04/05/23 10:00 Fungal Culture - Preliminary Pleural Fluid 04/05/23 10:00 Acid Fast Bacilli Smear - Preliminary Pleural Fluid Acid Fast Bacilli Culture - Preliminary Assessment and Plan Assessment: 1. Acute kidney injury secondary to ATN secondary to anemia and cardiorenal syndrome along with urinary retention. Renal function continued to worsen and therefore patient is started on hemodialysis on 04/18/2023. No obstruction noted on ultrasound. Elevated BUN secondary to GI bleed. 2. Chronic kidney disease stage IV with baseline creatinine near 3 secondary to nephrosclerosis and obstructive uropathy. 3. Hyperkalemia secondary to acute kidney injury, acidosis and urinary retention. Improved with medical management. 4. Volume overload with pleural effusions. Improved 5. Acute blood loss anemia status post blood transfusion this admission. E liquis on hold. Possible GI bleed. Maintained on Aranesp 6. Acute on chronic systolic CHF ejection fraction of 30 to 35% with moderate mitral and tricuspid regurgitation. 7. Metabolic acidosis secondary to acute kidney injury improved with bicarb drip. 8. Urinary retention status post Riley catheter placement. On Flomax. 9. Left hydropneumothorax, stable Plan: Hemodialysis in a.m. Patient will need IJ catheter placement as he will need to continue with outpatient hemodialysis.
--- NOTE | 2023-04-21 13:46 | P.PN ---
Subjective Progress Note Date: 04/21/23 CHIEF COMPLAINT: Anemia HISTORY OF PRESENT ILLNESS: Patient presented with anemia and GI bleed. Patient status post EGD and colonoscopy. Colonoscopy reported diverticulosis and internal hemorrhoids. EGD had reported hypertensive upper esophageal sphincter status post EGD with dilation. Patient does report symptoms of throat soreness. Denies any nausea or vomiting. Afebrile. WBC 6.10 Hgb 8.3 PHYSICAL EXAM: VITAL SIGNS: Reviewed GENERAL: Well-developed in no acute distress. HEENT: No sclera icterus. Extraocular movements grossly intact. Moist buccal mucosa. Head is atraumatic, normocephalic. Hears conversational speech. No nasal drainage. NECK: Supple without lymphadenopathy. CHEST: Non-labored respirations and equal bilateral excursions. CARDIOVASCULAR: Palpable 2+ radial pulses. ABDOMEN: Soft. Nondistended. Nontender. MUSCULOSKELETAL: No clubbing or cyanosis. NEUROLOGIC: No focal or lateralizing signs. Cranial nerves II through XII grossly intact. PSYCH: Appropriate affect. Alert and oriented to person, place and time. SKIN: Well perfused. Good skin turgor. ASSESSMENT: 1. Anemia status post EGD with acute gastritis with bleeding and erosive esophagitis 2. Left pneumothorax status post left-sided Thora vent and removal 3. History of left pleural effusion status post left-sided thoracentesis 4. Acute on chronic kidney disease 5. Atrial fibrillation 6. Severe aortic stenosis 7. Dysphagia 8. 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 Signing provider agrees with the documented findings, assessment, and plan of care. CHIEF COMPLAINT: GI bleed HISTORY OF PRESENT ILLNESS: The patient is a 87 year old male with dysphagia and anemia. He is status post upper and lower endoscopy. He does report sore throat. No blood in stools. REVIEW OF ORGAN SYSTEMS: No fevers or chills. No nausea or vomiting. No shortness of breath. PHYSICAL EXAM: VITALS: Reviewed CONSTITUTIONAL: Well developed and in no acute distress. EYES: Conjuctivae without sclera icterus. Extraocular movements grossly intact. HEAD, EARS, NOSE, THROAT: Moist buccal mucosa. Head is atraumatic, normocephalic . Hears conversational speech. No nasal drainage. RESPIRATORY: Non-labored respirations and equal bilateral excursions. No gross wheezes. CARDIOVASCULAR: Palpable 2+ radial pulses. ABDOMEN: No abdominal pain. MUSCULOSKELETAL: No clubbing cyanosis or edema SKIN: Warm and well perfused with good skin turgor. NEUROLOGIC: Cranial nerves II through XII grossly intact. No focal or lateralizing signs. PSYCH: Appropriate affect. Alert and oriented to person, place and time. CLINCAL LABS: Reviewed. ASSESSMENT: 1. Anemia 2. GI bleed 3. Acute on chronic kidney failure 4. Atrial fibrillation 5. Ischemic cardiomyopathy 6. Chronic obstructive pulmonary disease 7. Pneumothorax 8. Dysphagia 9. Aortic stenosis PLAN: 1. Recommend pured diet due to upper endoscopy with dilation 2. Hold blood thinners due to recent upper endoscopy with dilation and risk for bleeding Objective - Vital Signs Vital signs: Vital Signs Temp 98.4 F 04/21/23 07:10 Pulse 70 04/21/23 07:10 Resp 17 04/21/23 07:10 BP 117/55 04/21/23 07:10 Pulse Ox 97 04/21/23 07:10 FiO2 Intake & Output 04/20/23 04/21/23 04/21/23 18:59 06:59 18:59 Intake Total 200 Output Total 175 200 Balance 25 -200 Weight 56.245 kg 74.5 kg Intake: IV 200 Output: Urine 175 200 Other: Voiding Method Indwelling Catheter Indwelling Catheter Indwelling Catheter - Labs CBC & Chem 7: 04/27/23 05:45 04/27/23 05:45 Labs: Abnormal Lab Results - Last 24 Hours (Table) 04/21/23 04/21/23 Range/Units 08:31 08:31 RBC 2.70 L (4.40-5.60) X 10*6/uL Hgb 8.3 L (13.0-17.0) g/dL Hct 26.2 L (39.6-50.0) % MCHC 31.7 L (32.0-37.0) g/dL RDW 15.9 H (11.5-14.5) % Eosinophils # 0.47 H (0.04-0.35) X 10*3/uL Anion Gap 12.10 H (4.00-12.00) mmol/L BUN 62.0 H (9.0-27.0) mg/dL Creatinine 3.5 H (0.6-1.5) mg/dL Est GFR (CKD-EPI) 16 L (>=60) Microbiology - Last 24 Hours (Table) 04/05/23 10:00 Fungal Culture - Preliminary Pleural Fluid 04/05/23 10:00 Acid Fast Bacilli Smear - Preliminary Pleural Fluid Acid Fast Bacilli Culture - Preliminary
--- NOTE | 2023-04-21 14:05 | P.PN ---
Subjective Progress Note Date: 04/21/23 I am seeing this patient in consultation today 04/02/2023 for dyspnea and left- sided pleural effusion. He is currently in the emergency room. He was transferred from [facility] late last night for severe hyperkalemia and acute kidney injury. Patient is a 87-year-old white male with past medical history significant for chronic kidney disease, congestive heart failure, atrial fibrillation anticoagulated on Eliquis, hyperlipidemia, COPD, and BPH. Patient is technically a poor historian. Apparently, he is complaining of shortness of breath, weakness and sore throat over the last several days. This progressively worsened, and he went into [facility] to be evaluated. Patient was found to be severely hyperkalemic. He was also found to be anemic and was transfused 1 unit PRBC. He was transferred to [facility]. Patient is currently resting in bed, on 2 L/min nasal cannula, in no acute distress. He is weak and cannot sit up in bed without assistance. Becomes short of breath with any kind of activity. He denies any chest pain, heart palpitations, or syncopal events. He does have bilateral lower extremity swelling. He has an occasional nonproductive cough. Denies any sputum production, fevers. Chest x-ray on arrival shows cardiomegaly, pulmonary vascu lar congestion, and interstitial edema. There is a moderate to large left-sided pleural effusion and small right pleural effusion.. Patient was given 60 mg of IV Lasix. A Riley catheter was inserted, and the patient has approximately 800 mL of concentrated urine. Patient states that earlier in the week he has had troubles urinating. He voids about 2-3 times per day. Endorses dysuria. Denies any hematuria, urinary frequency. Urinalysis on arrival not concerning for UTI. Trace protein. He does have baseline chronic kidney disease. Ultrasound of the abdomen and bladder did not show any hydronephrosis. Potassium level on arrival was elevated at 8.4 and is down to 5 point 3:06 amp sodium bicarb, 10 g Lokelma, 10 units insulin, 2 A D50 W, calcium gluconate, and the above-mentioned Lasix. Nephrology has been consulted. There is D5W with 3 amp sodium bicarb infusing at 50 MLS per hour. BMP on arrival has a sodium 138, testing 8.4, chloride 108, serum bicarb 18, BUN 74, creatinine 3.68, and glucose 85. Lactic acid level was 3.8 on arrival and is down to 1.6. Troponin less daniel n 0.012. NT proBNP 57,800. ECG shows normal sinus rhythm with chronic left bundle branch block without any obvious hyperkalemic changes. CBC on arrival: WBC count 8.4, hemoglobin 10.7, hematocrit 34, platelets 121. Group A strep negative. No signs of bleeding. Patient has chronic anemia. Patient denies any acute blood loss. No bloody bowel movements, melena, hematemesis. No abdominal pain or diarrhea. Vital signs are stable. The patient is seen today April 03, 2023 in follow-up in the emergency department. He is currently sitting up on the stretcher. Awake and alert in no acute distress. He is breathing a bit easier today compared to yesterday. He states he is about 50% better. He is still somewhat bronchospastic and wheezing. White count 8.6. Hemoglobin 8.1. Platelets 127. Sodium 139. Potassium 5.0. BUN 89. Creatinine 4.02. Glucose 118. He is continued on IV diuretics. Anticoagulated with Eliquis. Continued on bronchodilators. Currently in a -1.2 L balance. Making good urine. The patient is seen today April 04, 2023 in follow-up on the regular medical floor. He is awake and alert in no acute distress. Resting fairly comfortably in bed. Denies any worsening shortness of breath, cough or congestion. He is maintaining O2 saturation in the 90s on 2 L/min per nasal cannula. Chest x-ray does reveal increasing left pleural effusion and a right-sided pleural effusion. Echocardiogram confirms a right-sided pleural effusion measuring 11.9 cm, left- sided pleural effusion at 10.8 cm. The patient is currently on Eliquis this will be placed on hold for possible left-sided thoracentesis tomorrow. Count 9.0. Hemoglobin 7.8. Platelets 140. Sodium 140. Potassium 4.8. Bicarb 28. BUN 87. Creatinine 4.1. Glucose 88. He remains on Lasix 60 mg IV twice a day. Currently net -1.5 L balance The patient is seen today April 05, 2023 in follow-up on the regular medical floor. He is currently sitting up in bed. Awake and alert in no acute distress. He is maintaining O2 saturations in the 90s 2 L/min per nasal cannula. He is been afebrile. Hemodynamically stable. He did undergo a left- sided thoracentesis today with 1.4 L of straw-colored fluid removed. Fluid sent for analysis and cytology. Follow-up chest x-ray reveals a tiny left apical pneumothorax. Sodium 137. Potassium 4.1. Bicarb 31. BUN 97. Creatinine 3.86. Glucose 101. Remains on IV diuretics. Currently in a -2.8 L balance. The patient is seen today April 06, 2023 in follow-up on the regular medical floor. He is awake and alert no acute distress. He is resting comfortably in bed. He is maintaining good O2 saturations in the 90s on 2 L/min per nasal cannula. He remains on IV diuretics. Currently net -2.7 L balance. He is status post left-sided thoracentesis yesterday with 1.4 L of straw-colored fluid removed. Cytology pending. Fluid analysis transudate with a total protein of 2.6 and an LDH of 80. Today's chest x-ray shows small bilateral effusions. No evidence of pneumothorax. Count 8.7. Hemoglobin 7.7. Platelets 139. Sodium 1 39. Potassium 4.2. Bicarb 29. BUN 91. Creatinine 4.0. The patient is seen today April 07, 2023 in follow-up on the regular medical floor. He is resting comfortably in bed. Awake and alert in no acute distress. Maintaining O2 saturations in the 90s on 2 L/min per nasal cannula. He is cont inued on bronchodilators and oral diuretics. Currently net -1.2 L balance. Follow-up chest x-ray revealed creasing consolidation and pleural effusion on the left. Likely represents a hydropneumothorax of approximately 5 to 10% pneumothorax noted. No significant change. The patient is seen today April 08, 2023 in follow-up on the regular medical floor. He is awake and alert in no acute distress. Maintaining O2 saturations in the 90s on 2 L/min per nasal cannula. Laying in bed. CT scan of the chest revealed moderate-sized bilateral pleural effusions. Left effusion appears loculated and there is additionally a left anterior pneumothorax at approximately 15 to 20%. Consolidation and partial collapse of the left lung. Atelectasis in the right posterior lung. Pleural fluid cultures revealed no growth, no malignancy. No plans for chest tube placement. Eliquis has been resumed. White count 8.5. Hemoglobin 7.7. Platelets 146. Sodium 139. Potassium 3.9. Bicarb 29. BUN 96. Creatinine 3.9. The patient is seen today April 09, 2023 in follow-up on the regular medical floor. He is resting comfortably in bed. Awake and alert in no acute distress. Maintaining O2 saturations in the 90s on 2 L/min per nasal cannula. He denies any worsening shortness of breath, cough or congestion. No new labs today. No chest x-ray today. He is anticoagulated with Eliquis. The patient is seen today April 10, 2023 in follow-up on the regular medical floor. He is awake and alert in no acute distress. Resting fairly comfortably in bed. Today's chest x-ray shows reaccumulation of fluid in the left chest. He is currently on DuoNeb inhalation, Pulmicort inhalations. Remains on oral diuretics. No new labs today. Pleural fluid cultures revealed no growth. He is anticoagulated with Eliquis. The patient is seen today April 11, 2023 in follow-up on the regular medical floor. He is sitting up in bed. Awake and alert in no acute distress. Maintaining O2 saturations in the 90s on 2 L/min per nasal cannula. Sodium 134. Potassium 4.5. Bicarb 30. BUN 130. Creatinine 3.55. Glucose 88. Ultrasound of the chest did reveal a significant left-sided pleural effusion. He under went a second thoracentesis today with 1.2 L of dark yellow fluid removed. Unfortunately, follow-up chest x-ray does reveal a moderate to large left pneumothorax. The patient remains asymptomatic. Repeat chest x-ray pending. He remains on bronchodilators. Remains on oral diuretics. Plan a -1.1 L balance. The patient is seen today April 12, 2023 in follow-up on the regular medical floor. He is awake and alert in no acute distress. Maintaining O2 saturations in the 90s on 2 L/min per nasal cannula. He denies any worsening shortness of breath, cough or congestion. Denies any chest pain. Follow-up chest x-ray continues to show a left apical hydropneumothorax. Slight improvement today compared to yesterday. Pleural fluid cultures revealed no growth. White count 6.5. Hemoglobin 7.6. Platelets 186. Stool for occult blood was positive. He is continued on bronchodilators. Continued on diuretics. Currently in a -700 mL balance. On today's evaluation of 04/13/2023, the patient is being seen for a follow-up. Noted the patient has an acute hypoxic respiratory failure due to CHF and bilateral pleural effusion. Noted the patient had a large left-sided pleural effusion and a small right-sided pleural effusion. His proBNP level was elevated. He underwent a left thoracentesis on 04/05/2023 with a total of 1.4 L of fluid removed that was transudative. Subsequent CAT scan of the chest showed a 15 to 20% pneumothorax. Chest x-ray on 04/10/2023 showed significant recommendation of the left-sided pleural effusion and at the same time there was a persistent pneumothorax on the left. The patient underwent another thoracentesis on 04/11/2023 with a total of 1.2 L of fluid was removed. I reviewed the chest x-ray from today and there is a large stable left-sided hydropneumothorax. Based on that, I inserted the Thora vent in this patient and immediately around 600 cc of pleural fluid was drained in addition to air. The follow-up chest x-ray that was done showed decrease in the left-sided pneumothorax and the thoracostomy tube is in place and attached to suction with persistent air leak. The patient remains clinically and hemodynamically stable on 2 L of oxygen by nasal cannula with a pulse ox of 98%. The patient remains on [facility], on p.o. Lasix 40 mg twice a day. The patient is also on metoprolol 12.5 mg p.o. daily. His echocardiogram that was done on 04/02/2023 showed a left-ventricular ejection fraction of around 30 to 35% along with biatrial enlargement and moderate MR and moderate aortic stenosis/severe aortic stenosis. Moderate degree of tricuspid regurgitation was also present. On today's evaluation of 04/14/2023, I am seeing the patient for a follow- up.Patient has no specific complaints. The Thora vent is still in place and attached to suction. The total amount of output in terms of fluid from the left lung was in the order of 800 cc from yesterday. There is no persistent air leak. I am ordering a urgent chest x-ray to follow-up on the pneumothorax. Otherwise, the patient has no specific complaints. The patient is still on Lasix 40 mg p.o. twice a day. Rest of the medications are essentially unchan ged. Labs from today shows a sodium level of 135, potassium of 5.2, BUN is 124 with a creatinine of 4.1 and a potassium level is at 5.2. Echocardiogram is showing impaired LV function with an ejection fraction of 35% with moderate MR, severe aortic stenosis and bilateral atrial enlargement. The patient is having some fecal occult blood positive and the patient was taken off anticoagulation for now. EGD EGD that was done on 04/13/2023 showed erosive esophagitis and gastritis. On today's evaluation of 04/15/2023, the patient is able to sit up in a chair. He is calm and comfortable. The output from the left sided Thora vent has improved and the fluid output has dropped significantly over the past 24 hours. Repeat chest x-ray was done and the patient continues to have a very trace left apical pneumothorax. There is also some limited subcutaneous emphysema. Overall, the patient is doing well. No significant respiratory distress and the patient was transitioned to room air oxygen with a pulse ox of 94%. The patient is currently on Lasix 40 mg p.o. twice a day. He is on DuoNeb nebulized treatments [id number]. Renal function is being monitored. BUN is at 131 with a creatinine of 4.4 and sodium levels at 134. The WBC count of 8.4 with a hemoglobin of 7.2. Note that the total vent is still faster suction. There is no evidence of any air leak. Suction is being applied in regards to his left- sided pleural effusion which seems to be adequately drained at this point in time. On today's evaluation of 04/16/2023, the patient is being seen for a follow-up. He is doing well. No specific complaints. I repeated the chest x-ray earlier this morning and there was no evidence of any pneumothorax. No evidence of any air leak and I took the opportunity to remove the Thora vent from his left lung. He remained stable and the patient is currently on 2 L of oxygen by nasal cannula with a pulse ox of 96%. Denies having any specific complaints. He has chronic kidney disease and the patient is being monitored by nephrology. Hemoglobin today is at 6.78 the patient does not have any acute signs of GI bleeding. The patient had also a potassium level of 5.4. The patient was seen by nephrology and the patient will be given another dose of Lokelma 10 g and the patient is still maintained on Lasix 40 mg p.o. twice a day. Bronchodilators still being given in the form of DuoNeb nebulized treatments [id number] 4 times a day. The patient is on Aranesp. The patient is also scheduled to receive unit of packed RBC today. On today's evaluation of 04/17/2023, the patient respite status is stable and the patient is currently on 3 L O2 nasal cannula With a pulse ox of 97%. A repeat chest x-ray was done today and shows no evidence of any pneumothorax. The pat ient has developed a small left-sided pleural effusion. Otherwise, the patient is stable. Hemoglobin is at 7.9 with a white cell count of 7. Sodium level is at 132 with a potassium level of 5.8. The BUN is up to 143 with a creatinine of 5.0 as the patient has an acute on top of chronic kidney failure. His creatinine has been steadily on the rise. Nephrology on the case for now. Patient remains on Lasix 40 mg p.o. twice a day. On today's evaluation of 04/18/2023, respiratory status is stable and the patient has no respiratory difficulties. Nevertheless, there has been progressive worse quinn renal function and on today's evaluation his sodium level is at 135 with a potassium level of 5.9. The BUN is up to 153 with a creatinine of 5.2. Nephrology on the case and the patient was given a temporary dialysis catheter and the patient was started on hemodialysis for an acute on top of chronic kidney disease. He was started on hemodialysis today on 04/18/2023. He has a right femoral temporary dialysis catheter in place. He is feeling well. No other major respiratory difficulties. Any hemodynamic instability. 04/19/2023, the patient has no specific complaints. The patient was started on hemodialysis on 04/18/2023. He tolerated dialysis well with a total of 900 cc of ultrafiltration. He is resting comfortably in bed. No dialysis for today and this will be done tomorrow on 04/20/2023. No respiratory difficulties and he remains on 2 L of oxygen by nasal cannula. No cough or sputum production. No altered mentation. Potassium level today is at 5.2 with a BUN of 110 and a cre atinine of 3.7. WBC count 7.2 with a hemoglobin of 8.5. The patient is seen today April 20, 2023 in follow-up on the regular medical floor. He is currently sitting up in bed. Awake and alert in no acute distress. He is maintaining O2 saturations in the upper 90s on 2 L/min per nasal cannula. Afebrile. Hemodynamically stable. Currently receiving hemodialysis. The plan is for colonoscopy today as well. He is status post 1 unit of packed red blood cells this admission. Hemoglobin currently 8.2. Platelets 206. White count 7.1. Sodium 133. Potassium 4.8. Bicarb 29. BUN 112. Creatinine 4.19. He remains on remains on oral diuretics. The patient is seen today April 21, 2023 in follow-up on the regular medical floor. He is awake and alert in no acute distress. Resting comfortably in bed. Denies any worsening shortness of breath, cough or congestion. He is maintaining O2 saturation in the 90s on 3 L/min per nasal cannula. He is having some complaints of a sore throat. He did undergo EGD yesterday that revealed esophageal stricture and had undergone esophageal dilatation. Colonoscopy revealed severe sigmoid diverticulosis. White count 6.1. Hemoglobin 8.3. Platelets 182. Sodium 137. Potassium 4.4. Bicarb 27. BUN 62. Creatinine 3.5. Glucose 84. Plan is for repeat dialysis tomorrow. Objective - Vital Signs Vital signs: Vital Signs Temp 98.4 F 04/21/23 07:10 Pulse 70 04/21/23 07:10 Resp 17 04/21/23 07:10 BP 117/55 04/21/23 07:10 Pulse Ox 97 04/21/23 07:10 FiO2 Intake & Output 04/20/23 04/21/23 04/21/23 18:59 06:59 18:59 Intake Total 200 Output Total 175 200 Balance 25 -200 Weight 56.245 kg 74.5 kg Intake: IV 200 Output: Urine 175 200 Other: Voiding Method Indwelling Catheter Indwelling Catheter Indwelling Catheter - Exam GENERAL EXAM: Alert, frail 87-year-old male, resting comfortably in bed, on 3 L nasal cannula, in no apparent distress. HEAD: Normocephalic and atraumatic EYES: Normal reaction of pupils, equal size. NOSE: Clear with pink turbinates. THROAT: Mild erythema, no exudates NECK: No masses, no JVD. CHEST: No chest wall deformity. LUNGS: Equal air entry with right basilar inspiratory crackles. Diminished in the left lung base. CVS: S1 and S2 normal with no audible murmur, regular rhythm. No extra heart sounds ABDOMEN: No hepatosplenomegaly, active bowel sounds, no guarding or rigidity. SPINE: No scoliosis or deformity SKIN: No rashes CENTRAL NERVOUS SYSTEM: No focal deficits, tone is normal in all 4 extremities. EXTREMITIES: Right femoral hemodialysis catheter in place. There is moderate bilateral lower extremity nonpitting edema. Peripheral pulses are intact. - Labs CBC & Chem 7: 04/21/23 08:31 04/21/23 08:31 Labs: Abnormal Lab Results - Last 24 Hours (Table) 04/21/23 04/21/23 Range/Units 08:31 08:31 RBC 2.70 L (4.40-5.60) X 10*6/uL Hgb 8.3 L (13.0-17.0) g/dL Hct 26.2 L (39.6-50.0) % MCHC 31.7 L (32.0-37.0) g/dL RDW 15.9 H (11.5-14.5) % Eosinophils # 0.47 H (0.04-0.35) X 10*3/uL Anion Gap 12.10 H (4.00-12.00) mmol/L BUN 62.0 H (9.0-27.0) mg/dL Creatinine 3.5 H (0.6-1.5) mg/dL Est GFR (CKD-EPI) 16 L (>=60) Microbiology - Last 24 Hours (Table) 04/05/23 10:00 Fungal Culture - Preliminary Pleural Fluid 04/05/23 10:00 Acid Fast Bacilli Smear - Preliminary Pleural Fluid Acid Fast Bacilli Culture - Preliminary Assessment and Plan Assessment: Acute hypoxemic respiratory failure, secondary to acute systolic CHF exacerbation and fluid overload. Chest x-ray shows cardiomegaly, pulmonary vascular congestion, and interstitial edema. Patient also has moderate to large left-sided pleural effusion and a small right pleural effusion. NT proBNP was elevated at 57,800. Status post left-sided thoracentesis April 05, 2023 with 1.4 L of straw-colored fluid removed. Fluid analysis transudate, cytology for malignancy. CT scan of the chest and follow-up chest x-ray reveals stable hydropneumothorax of approximately 15 to 20%. Chest x-ray April 10, 2023 shows significant reaccumulation of fluid in the left chest. Ultrasound reveals a recurrent left pleural effusion measuring 10.4 cm. A second thoracentesis was performed April 11, 2023 with 1.2 L of fluid removed. Moderate left-sided pneumothorax post procedure, Thora vent placed and subsequently removed 04/16/2023 Systolic heart failure with ejection fraction of 30 to 35% Moderate to severe aortic stenosis Moderate mitral regurgitation Acute on chronic kidney disease, creatinine is on the rise and the patient also developed some mild hyperkalemia, started on hemodialysis Severe hyperkalemia, improved post hemodialysis Lactic acidosis, improved Chronic obstructive pulmonary disease, stable History of paroxysmal atrial fibrillation, anticoagulated on Eliquis, currently normal sinus Benign prostatic hyperplasia Anemia of chronic disease, patient reportedly received 1 unit PRBC at [facility] and a second unit here Erosive esophagitis and gastritis. EGD from 04/20/2023 revealed esophageal stricture and is status post dilatation Severe diverticulosis noted on colonoscopy 04/20/2023 Plan: The patient was seen and evaluated Labs and medications reviewed EGD/colonoscopy results reviewed Patient is stable and on 2 L Continue the current treatment plan Plan is for hemodialysis tomorrow Plan is for ECF placement with hemodialysis ability We will continue to follow I have personally seen and examined the patient, performed the documentation and the assessment and plan as written. Number of minutes spent on the visit: 10.
[2023-04-21] MEDS: LIDOCAINE 1% INJ 10MG/ML (10 ML MDV) SQ ONE (14:33)
[2023-04-21] MEDS: fentaNYL (PF) 50 MCG/1 ML VIAL IVP ONE (14:35)
[2023-04-21] MEDS: MIDAZOLAM 2 MG/2 ML VIAL IVP ONE ×2 (14:35)
[2023-04-21] MEDS: SODIUM CHLORIDE 0.9% 1,000 ML IV ONE (14:54)
--- NOTE | 2023-04-21 14:55 | XR ---
EXAMINATION TYPE: XR chest 2V DATE OF EXAM: 04/21/2023 COMPARISON: 04/17/2023 HISTORY: 87-year-old male with cough and shortness of breath TECHNIQUE: PA and lateral views FINDINGS: Left margin obscured by adjacent pleural parenchymal opacity. Subcutaneous emphysema along the left s mojgan of the chest persists with decreasing. Enlarging now moderate to large pleural effusion. Atherosc lerotic calcifications throughout the thoracic aorta. There is a small effusion on the right side see n on the lateral view. Suspect a chronic, full-thickness rotator cuff tear left shoulder. IMPRESSION: 1. Increasing, now moderate to large left pleural effusion. A small right pleural effusion on the rig ht is seen on the lateral view. 2. Subcutaneous emphysema along the left chest wall is decreasing.
--- NOTE | 2023-04-21 15:37 | IR ---
EXAMINATION TYPE: IR cvc insert central tunneled DATE OF EXAM: 04/21/2023 FLUOROSCOPY Right-sided double-lumen dialysis catheter, 1.9min fluoro, [id number]. [id number] images submitted.
--- NOTE | 2023-04-21 17:22 | XR ---
EXAMINATION TYPE: XR chest 1V confirm line plcmt DATE OF EXAM: 04/21/2023 4:41 PM CLINICAL INDICATION:Male, 87 years old with history of confirm line placement. Nurse to call when zelda dy.; [facility] COMPARISON: Chest radiographs from 04/21/2023 TECHNIQUE: XR chest 1V confirm line plcmt Frontal view of the chest. FINDINGS: Lungs/Pleura: There is no evidence of pleural effusion, focal consolidation, or pneumothorax. Pulmonary vascularity: Pulmonary vascular congestion. Heart/mediastinum: Cardiomediastinal silhouette is enlarged and stable. Atherosclerotic calcificatio ns are seen in the aorta. Musculoskeletal: No acute osseous pathology. IMPRESSION: Cardiomegaly, pulmonary vascular congestion and bilateral pleural effusions. Correlate with BNP for c ongestive heart failure.
--- NOTE | 2023-04-21 20:53 | OP ---
OPERATIVE REPORT DATE OF SERVICE : PREOPERATIVE DIAGNOSIS: Acute on chronic renal failure. PROCEDURES PERFORMED: 1. Ultrasound-guided right IJ catheter placed, jugular approach. 2. Removal of the dialysis catheter from the femoral approach. DESCRIPTION OF PROCEDURE: This patient was brought to the catheterization laboratory technician. Right side of the neck and chest were prepped, and drapes applied in a sterile manner. 1% lidocaine plain infiltrated in neck area. Ultrasound-guided micropuncture introduced to right jugular vein, micropuncture guidewire was passed. After that, we passed a 4-Amharic dilator on the top of the guidewire, then we passed a regular guidewire which was parked in the inferior vena cava. After the tunnel was created. Through the tunnel we brought 23 cm dialysis catheter. Dilator was advanced on top of the guidewire. Sheath was advanced on top of the guidewire. Then we placed a catheter through the sheath. Sheath was removed, guidewire was removed, flushed with heparin saline and hep-locked, secured with 3-0 nylon and Vicryl. The patient tolerated the procedure well. Right groin was prepped and right dialysis catheter was removed. Pressure was held. The patient tolerated the procedure well. PLAN: X-ray of the chest for dialysis catheter placement. MMODL / IJN: [id number] /
--- NOTE | 2023-04-22 06:08 | P.PN ---
Subjective Progress Note Date: 04/21/23 Patient is a 87-year-old white male with past medical history significant for chronic kidney disease, congestive heart failure, atrial fibrillation anticoagulated on Eliquis, hyperlipidemia, COPD, and BPH, who was transferred from [facility] for severe hyperkalemia and acute kidney injury. Patient has been complaining of shortness of breath and weakness for a few days. Patient also complaining of sore throat. Patient weakness and shortness of breath progressed so he eventually presented to [facility] where he was evaluated, patient was found to have elevated potassium levels of 8.4, patient was given hyperkalemia protocol and received sodium bicarb, Lokelma, insulin and dextrose. Chest x-ray done showed large left pleural effusion small right pleural effusion, patient was transferred to [facility]. Patient has been complaining of shortness of breath on exertion and rest. Denies any chest pain. There is complaint of swelling of lower extremities. Patient complaining of nonproductive cough. Denies any fevers or chills Patient admitted to internal medicine service 04/03. Patient seen and examined. 2D echo done showed LVEF of 35% with global hypokinesis, severe biatrial enlargement, moderate mitral regurg, severe aortic stenosis. 04/04. Patient seen and examined. States breathing is improving, still gets short of breath on exertion. 04/05. Patient seen and examined. Patient being planned for thoracentesis this morning with pulmonary medicine. States breathing is improved. Denies any nausea or vomiting 04/06. Patient seen and examined. States breathing has improved, feels much better after thoracentesis yesterday. Labs done this morning showed WBC 8.7, hemoglobin 7.7, platelet count 139, sodium 139, potassium 4.2, BUN 90, creatinine 4 04/07/2023 Patient is currently sitting up in the chair. Awake alert and oriented 3. Currently on 2 L oxygen via nasal cannula. Patient is being cannula on by mouth twice a day. Also on DuoNeb's and Pulmicort inhalation. No comments of nausea or vomiting. Tolerating oral diet. No bowel movement today. Laboratory data showed sodium 138 potassium 4.0 chloride 95 BUN 91.1 and creatinine 4.0 Patient is being followed by pulmonary and nephrology. Chest x-ray showed increasing consolidation and pleural effusion on the left. Likely represent a hydropneumothorax of approximately 5-10% pneumothorax noted. No significant interval change. 04/08/2023 Patient is currently sitting which it. Awake alert and oriented 3. requiring oxygen at a 2 L via nasal cannula. pleural fluid cultures showed no growth. No plans for chest tube placement. Pulmonary is on board. laboratory data showed sodium 139, potassium 3.9, chloride 95, BUN 96.5 and creatinine 3.1. Nephrology and pulmonology is on board. 04/09/2023 Patient is sitting in the chair. Awake alert and oriented 3. Requiring 2 L oxygen with nasal cannula. Patient does have home oxygen. Patient has been afebrile. Able to tolerate oral diet. Pleural fluid culture is negative. Cytology is negative for malignancy.. Repeat chest x-ray was ordered for tomorrow. No plan for chest tube placement at this time. Pulmonary is on board. No new laboratory data today. 04/11. Patient seen and examined. Repeat chest x-ray done showed pneumothorax moderate to large left, currently not in respiratory distress. Denies any blood in the stools 04/12. Patient seen and examined. Labs done this morning showed WBC 6.5, hemoglobin 7.6, platelet count 186, sodium 130, potassium 4.8, BUN 122, creatinine 3.9. FOBT was positive, surgery was consulted, they recommended doing EGD which is scheduled for tomorrow morning. N.p.o. at midnight 04/13. Patient seen and examined. Patient went for EGD this morning which s howed Squamocolumnar junction 41 cm from the incisors,Diaphragmatic hiatus at 41 cm,LA grade B erosive esophagitis,Acute gastritis with bleeding. 04/14. Patient seen examined. Patient had left-sided Thora vent placed. Shortness of breath has improved. Denies any nausea or vomiting. 04/15/2023 Patient is seen and evaluated in follow-up this morning continues on 3 L via nasal cannula currently weaning FiO2 as tolerated. Patient being followed by pulmonary recommending follow-up chest x-ray to monitor left-sided pneumothorax. Patient continues with left Thora vent and pulmonary discussing possibly removing the chest tube. Patient also being followed by cardiology as well as nephrology with CHF exacerbation along with acute on chronic kidney disease exacerbation. Patient has had prolonged hospitalization and generalized weakness and patient reports will be returning home and has support at the home and will continue with rehab in the outpatient setting. Patient is adamant he is going home once discharged. Hemoglobin is stable above 7 at 7.2 today white count remains normal, sodium is 134 with a potassium of 5.4, BUN is 131 and creatinine is 4.4, LFTs slightly trending down and C. difficile testing from yesterday was negative. Patient continues on oral Lasix. Potassium slightly elevated today and was given a dose of Lokelma. Will follow-up on repeat labs. Patient was continued on scheduled lactulose per surgery recommendations and will make as needed as patient is reporting having loose stools. 04/16/2023 Patient is seen in follow-up today status post chest x-ray today that showed a trace pneumothorax on the left and patient is scheduled to have the thoracotomy tube removed. Hemoglobin this morning slightly low at 6.7 and will transfuse 1 unit of PRBCs and follow-up on repeat labs later this afternoon. Patient continues on 3 L via nasal cannula reporting continued shortness of breath although no worse. Kidney functions continue with an elevated BUN of 138 and creatinine is 4.5. Nephrology is following. Potassium remains elevated and is status post a dose of Lokelma and patient has been given DDAVP today. Will follow-up with repeat labs. Encouraged increase activity as tolerated recommend PT/OT therapy evaluation. General surgery following as well with plans of endoscopic intervention including EGD and colonoscopy once more stable. Possibl y Thursday. Anticoagulation remains on hold. 04/17/2023 Patient is seen in follow-up today with multiple medical consultations following. Patient had chest tube removed maintained on 3 L reports tolerating well with no worsening shortness of breath. Kidney functions continue to worsen with nephrology following recommending renal replacement. Vascular surgery consulted for dialysis cath placement. Patient is afebrile with no reported chest pain or palpitations noted. General surgery also following with plans on colonoscopy on Thursday. Hemoglobin is stable currently. Will follow-up with repeat labs and continue to monitor closely. Given significant comorbidities, prognosis is guarded. 3-2 24 Patient is currently lying in the bed. Awake alert and oriented x 3. Patient states that he has difficulty breathing and tightness in the chest. Currently requiring oxygen at 2 L via nasal cannula. Otherwise patient was found to be hyperkalemic potassium 5.9. Patient was placed on femoral catheter and was started on hemodialysis today. Denies any nausea or vomiting. Tolerating oral diet. No headache or dizziness or lightheadedness. Hemoglobin was 7.9 this morning. Laboratory data showed sodium 135 potassium 5.9 chloride 90 bicarb is 26.2 anion gap 18.8, BUN 153 and creatinine 5.2 and GFR 10 calcium 9.1. 04/19/2023 Patient is lying in the bed. Awake alert and oriented x 3. Patient did tolerate hemodialysis yesterday. Hemodialysis will be tomorrow. Currently requiring 2 L oxygen via nasal cannula. Afebrile. No cough or sputum production. Patient states that he feels better. No nausea or vomiting. Tolerating oral diet. Laboratory work showed WBC 7.2 hemoglobin 8.5 and platelets 194 Sodium 133 potassium 5.2 chloride 96 bicarb is 28 BUN 110 and creatinine 3.7 creatinine phosphorus 4.7. Nephrology and pulmonary is on board. 04/20/2023 Patient is seen and evaluated in follow-up today currently receiving hemodialysis maintained on 2 to 3 L via nasal cannula. General surgery also following working on EGD with concerns of dysphagia postdialysis. Patient is currently n.p.o. and anticoagulation remains on hold. Stable hemoglobin of 8.2 today and will discuss further with surgery regarding anticoagulation after surgical report. Patient is currently afebrile with no reports of chest pain or shortness of breath. Patient tolerating diet with no reported nausea or vo miting. Patient is tolerating hemodialysis that was just started this week. Patient reports he continues to want to go home and case management following working on arranging possible outpatient hemodialysis as well as home care. 04/21/2023 Patient is seen in follow-up today with vascular surgery following scheduled to have permacath placed for outpatient hemodialysis. Patient is maintained on dialysis along with multiple other consultations following including pulmonary. Patient underwent EGD with dilatation showing severe esophageal stenosis. Patient tolerating diet and denies any issues with swallowing at this time. Patient hemoglobin is stable at 8.3 with no active bleeding noted. Discussed with general surgery regarding resuming anticoagulation and will hold for today as patient is scheduled to receive permacath placement. Likely okay for resuming anticoagulation tomorrow. Patient is currently afebrile with no reports of chest pain or worsening shortness of breath. Patient is extremely anxious and wants to go home but is also significantly weak and would benefit from ECF. Patient is adamant he is going home and has home care. Case management following and will have PT/OT reevaluate the patient with recommendations. Current medications reviewed. REVIEW OF SYSTEMS: CONSTITUTIONAL: No fever, no malaise,. CARDIOVASCULAR: No chest pain, no palpitations, no syncope. PULMONARY: As mentioned above GASTROINTESTINAL: Reports of diarrhea that is improved, no nausea, no vomiting, no abdominal pain. NEUROLOGICAL: No headaches, no weakness, PHYSICAL EXAMINATION: GENERAL: The patient is alert and oriented x3, Well developed, well nourished. Elderly appearing, ill-appearing, thin built HEENT: Pupils are round and equally reacting to light. EOMI. No scleral icterus. No conjunctival pallor. Normocephalic, atraumatic. No pharyngeal erythema. No thyromegaly. CARDIOVASCULAR: S1 and S2 muffled PULMONARY: Coarse breath sound bilaterally, diminished at the bases, crackles audible ABDOMEN: Soft, nontender, nondistended, normoactive bowel sounds. No palpable organomegaly. MUSCULOSKELETAL: No joint swelling or deformity. EXTREMITIES: No cyanosis, clubbing, or pedal edema. NEUROLOGICAL: Gross neurological examination did not reveal any focal deficits. Diffusely weak SKIN: No rashes. Multiple bruises noted on upper and lower extremities Assessment: Hyperkalemia secondary to OMA and metabolic acidosis. Improved postdialysis Acute on chronic kidney disease with worsening kidney functions. Patient was initiated on hemodialysis on 04/18/2023. Acute hypoxic respiratory failure secondary to CHF exacerbation as well as large left sided pleural effusion and small right, status post left-sided thoracentesis x 2 recently and repeat 1 done on 04/11/2023 with approximately 1.2 L removed Moderate left-sided pneumothorax postprocedure status post Thora vent placement, Thora vent removed on 04/16/2023 Acute on chronic systolic congestive heart failure exacerbation, EF is 30 to 35% Acute on chronic gastritis with bleeding noted on EGD. 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 Anticoagulation, in the form of Eliquis although is on hold due to drop in hemoglobin and suspected GI bleed. Full code Plan: Patient was started on hemodialysis on 04/18/2023. Vascular surgery consulted for removal of the catheter in the groin and will have right permacath placed on the chest wall today Case management following arranging for outpatient hemodialysis. Home care being arranged as patient is adamant he is going home on discharge. Will have PT/OT therapy evaluate the patient again as patient is significantly weak and has had prolonged hospitalization and will definitely need ECF although patient is adamant he is not going to rehab. General surgery following status post EGD showing dysphagia with dysmotility status post dilatation and is being advanced on diet. Surgery recommend holding anticoagulation for 1 more day. Patient was continued with Thora vent and was removed on 04/16/2023. Patient continues on 2 L via nasal cannula recommend to wean FiO2 as tolerated Follow-up on repeat labs in the a.m. and monitor kidney functions along with electrolytes. Replace electrolytes per protocol. Recommend PT/OT therapy daily as patient reports he is returning home and has had significantly increased weakness with prolonged hospitalization. Continue with PPI. Eliquis, anticoagulation is on hold due to concern for GI bleed. Okay to resume anticoagulation in the next 24 to 48 hours if hemoglobin remained stable Due to multiple complex medical issues, prognosis is guarded The impression and plan of care has been dictated by Nurse Yaneth Larry as directed. Dr. David MD I have performed a history and examination and MDM of this patient, discussed the same with the dictator, and agree with the dictator's assessment and plan as written ,documented as a scribe. Based on total visit time, I have performed more than 50% of the visit. Objective - Vital Signs Vital signs: Vital Signs Temp 97.4 F L 04/21/23 19:23 Pulse 73 04/22/23 01:36 Resp 12 04/21/23 19:23 BP 103/55 04/22/23 01:36 Pulse Ox 88 L 04/22/23 01:36 FiO2 Intake & Output 04/21/23 04/21/23 04/22/23 06:59 18:59 06:59 Intake Total 200 Output Total 200 150 Balance -200 50 Weight 74.5 kg 74.5 kg Intake: IV 200 Output: Urine 200 150 Other: Voiding Method Indwelling Catheter Indwelling Catheter Indwelling Catheter - Labs CBC & Chem 7: 04/21/23 08:31 04/21/23 08:31 Labs: Abnormal Lab Results - Last 24 Hours (Table) 04/21/23 04/21/23 Range/Units 08:31 08:31 RBC 2.70 L (4.40-5.60) X 10*6/uL Hgb 8.3 L (13.0-17.0) g/dL Hct 26.2 L (39.6-50.0) % MCHC 31.7 L (32.0-37.0) g/dL RDW 15.9 H (11.5-14.5) % Eosinophils # 0.47 H (0.04-0.35) X 10*3/uL Anion Gap 12.10 H (4.00-12.00) mmol/L BUN 62.0 H (9.0-27.0) mg/dL Creatinine 3.5 H (0.6-1.5) mg/dL Est GFR (CKD-EPI) 16 L (>=60)
[2023-04-22 08:31] LABS: HCT 26.1 % (39.6-50.0); HGB 8.4 g/dL (13.0-17.0); MCHC 32.2 g/dL (32.0-37.0); MCV 96.3 FL (80.0-97.0); Mean Platelet Volume 11.7 FL (9.5-12.2); NRBC Per 100 WBC 0 X 10*3/uL (0.00-0.01); Platelet Count 201 X 10*3/uL (140-440); RBC 2.71 X 10*6/uL (4.40-5.60); RDW 15.8 % (11.5-14.5); WBC 6.83 X 10*3/uL (4.50-10.00)
[2023-04-22 08:39] LABS: BUN/Creat Ratio 17.71 Ratio (12.00-20.00); Blood Urea Nitrogen 67.3 mg/dL (9.0-27.0); Calcium 8.7 mg/dL (8.7-10.3); Carbon Dioxide 26.9 mmol/L (21.6-31.8); Chloride 98 mmol/L (96-109); Glucose 84 mg/dL (70-110); Potassium 4.2 mmol/L (3.5-5.5); Sodium 136 mmol/L (135-145)
--- NOTE | 2023-04-22 13:35 | P.PN ---
Subjective Patient is seen for follow-up for acute kidney injury on top of chronic kidney disease. Renal function had deteriorated and patient is started on hemodialysis on 04/18/2023. Status post right IJ permacath placement No significant complaints today. Scheduled for hemodialysis today. Objective - Vital Signs Vital signs: Vital Signs Temp 98.0 F 04/22/23 10:46 Pulse 69 04/22/23 10:46 Resp 18 04/22/23 10:46 BP 126/54 04/22/23 10:46 Pulse Ox 97 04/22/23 07:37 FiO2 Intake & Output 04/21/23 04/22/23 04/22/23 18:59 06:59 18:59 Intake Total 200 Output Total 150 400 Balance 50 -400 Weight 74.5 kg 81 kg Intake: IV 200 Output: Urine 150 400 Other: Voiding Method Indwelling Catheter Indwelling Catheter Indwelling Catheter - Exam Patient is awake, comfortable, no acute distress Examination of the heart S1 and S2 Examination of the lungs bilateral breath sounds are heard Abdomen is soft nontender Examination lower extremities shows trace edema INVESTMENT MANAGER exam grossly intact - Labs CBC & Chem 7: 04/22/23 05:42 04/22/23 05:42 Labs: Abnormal Lab Results - Last 24 Hours (Table) 04/22/23 04/22/23 Range/Units 05:42 05:42 RBC 2.71 L (4.40-5.60) X 10*6/uL Hgb 8.4 L (13.0-17.0) g/dL Hct 26.1 L (39.6-50.0) % RDW 15.8 H (11.5-14.5) % BUN 67.3 H (9.0-27.0) mg/dL Creatinine 3.8 H (0.6-1.5) mg/dL Est GFR (CKD-EPI) 15 L (>=60) Assessment and Plan Assessment: 1. Acute kidney injury secondary to ATN secondary to anemia and cardiorenal syndrome along with urinary retention. Renal function continued to worsen and therefore patient is started on hemodialysis on 04/18/2023. No obstruction noted on ultrasound. Elevated BUN secondary to GI bleed. 2. Chronic kidney disease stage IV with baseline creatinine near 3 secondary to nephrosclerosis and obstructive uropathy. 3. Hyperkalemia secondary to acute kidney injury, acidosis and urinary retention. Improved with medical management. 4. Volume overload with pleural effusions. Improved 5. Acute blood loss anemia status post blood transfusion this admission. Eliquis on hold. Possible GI bleed. Maintained on Aranesp 6. Acute on chronic systolic CHF ejection fraction of 30 to 35% with moderate mitral and tricuspid regurgitation. 7. Metabolic acidosis secondary to acute kidney injury improved with bicarb drip. 8. Urinary retention status post Riley catheter placement. On Flomax. 9. Left hydropneumothorax, stable Plan: Hemodialysis today. Patient will be maintained on a Thursday schedule as outpatient in [place]. Patient is stable for discharge from nephrology standpoint.
--- NOTE | 2023-04-22 14:13 | P.PN ---
Subjective Progress Note Date: 04/22/23 I am seeing this patient in consultation today 04/02/2023 for dyspnea and left- sided pleural effusion. He is currently in the emergency room. He was transferred from [facility] late last night for severe hyperkalemia and acute kidney injury. Patient is a 87-year-old white male with past medical history significant for chronic kidney disease, congestive heart failure, atrial fibrillation anticoagulated on Eliquis, hyperlipidemia, COPD, and BPH. Patient is technically a poor historian. Apparently, he is complaining of shortness of breath, weakness and sore throat over the last several days. This progressively worsened, and he went into [facility] to be evaluated. Patient was found to be severely hyperkalemic. He was also found to be anemic and was transfused 1 unit PRBC. He was transferred to [facility]. Patient is currently resting in bed, on 2 L/min nasal cannula, in no acute distress. He is weak and cannot sit up in bed without assistance. Becomes short of breath with any kind of activity. He denies any chest pain, heart palpitations, or syncopal events. He does have bilateral lower extremity swelling. He has an occasional nonproductive cough. Denies any sputum production, fevers. Chest x-ray on arrival shows cardiomegaly, pulmonary vascu lar congestion, and interstitial edema. There is a moderate to large left-sided pleural effusion and small right pleural effusion.. Patient was given 60 mg of IV Lasix. A Riley catheter was inserted, and the patient has approximately 800 mL of concentrated urine. Patient states that earlier in the week he has had troubles urinating. He voids about 2-3 times per day. Endorses dysuria. Denies any hematuria, urinary frequency. Urinalysis on arrival not concerning for UTI. Trace protein. He does have baseline chronic kidney disease. Ultrasound of the abdomen and bladder did not show any hydronephrosis. Potassium level on arrival was elevated at 8.4 and is down to 5 point 3:06 amp sodium bicarb, 10 g Lokelma, 10 units insulin, 2 A D50 W, calcium gluconate, and the above-mentioned Lasix. Nephrology has been consulted. There is D5W with 3 amp sodium bicarb infusing at 50 MLS per hour. BMP on arrival has a sodium 138, testing 8.4, chloride 108, serum bicarb 18, BUN 74, creatinine 3.68, and glucose 85. Lactic acid level was 3.8 on arrival and is down to 1.6. Troponin less daniel n 0.012. NT proBNP 57,800. ECG shows normal sinus rhythm with chronic left bundle branch block without any obvious hyperkalemic changes. CBC on arrival: WBC count 8.4, hemoglobin 10.7, hematocrit 34, platelets 121. Group A strep negative. No signs of bleeding. Patient has chronic anemia. Patient denies any acute blood loss. No bloody bowel movements, melena, hematemesis. No abdominal pain or diarrhea. Vital signs are stable. The patient is seen today April 03, 2023 in follow-up in the emergency department. He is currently sitting up on the stretcher. Awake and alert in no acute distress. He is breathing a bit easier today compared to yesterday. He states he is about 50% better. He is still somewhat bronchospastic and wheezing. White count 8.6. Hemoglobin 8.1. Platelets 127. Sodium 139. Potassium 5.0. BUN 89. Creatinine 4.02. Glucose 118. He is continued on IV diuretics. Anticoagulated with Eliquis. Continued on bronchodilators. Currently in a -1.2 L balance. Making good urine. The patient is seen today April 04, 2023 in follow-up on the regular medical floor. He is awake and alert in no acute distress. Resting fairly comfortably in bed. Denies any worsening shortness of breath, cough or congestion. He is maintaining O2 saturation in the 90s on 2 L/min per nasal cannula. Chest x-ray does reveal increasing left pleural effusion and a right-sided pleural effusion. Echocardiogram confirms a right-sided pleural effusion measuring 11.9 cm, left- sided pleural effusion at 10.8 cm. The patient is currently on Eliquis this will be placed on hold for possible left-sided thoracentesis tomorrow. Count 9.0. Hemoglobin 7.8. Platelets 140. Sodium 140. Potassium 4.8. Bicarb 28. BUN 87. Creatinine 4.1. Glucose 88. He remains on Lasix 60 mg IV twice a day. Currently net -1.5 L balance The patient is seen today April 05, 2023 in follow-up on the regular medical floor. He is currently sitting up in bed. Awake and alert in no acute distress. He is maintaining O2 saturations in the 90s 2 L/min per nasal cannula. He is been afebrile. Hemodynamically stable. He did undergo a left- sided thoracentesis today with 1.4 L of straw-colored fluid removed. Fluid sent for analysis and cytology. Follow-up chest x-ray reveals a tiny left apical pneumothorax. Sodium 137. Potassium 4.1. Bicarb 31. BUN 97. Creatinine 3.86. Glucose 101. Remains on IV diuretics. Currently in a -2.8 L balance. The patient is seen today April 06, 2023 in follow-up on the regular medical floor. He is awake and alert no acute distress. He is resting comfortably in bed. He is maintaining good O2 saturations in the 90s on 2 L/min per nasal cannula. He remains on IV diuretics. Currently net -2.7 L balance. He is status post left-sided thoracentesis yesterday with 1.4 L of straw-colored fluid removed. Cytology pending. Fluid analysis transudate with a total protein of 2.6 and an LDH of 80. Today's chest x-ray shows small bilateral effusions. No evidence of pneumothorax. Count 8.7. Hemoglobin 7.7. Platelets 139. Sodium 1 39. Potassium 4.2. Bicarb 29. BUN 91. Creatinine 4.0. The patient is seen today April 07, 2023 in follow-up on the regular medical floor. He is resting comfortably in bed. Awake and alert in no acute distress. Maintaining O2 saturations in the 90s on 2 L/min per nasal cannula. He is cont inued on bronchodilators and oral diuretics. Currently net -1.2 L balance. Follow-up chest x-ray revealed creasing consolidation and pleural effusion on the left. Likely represents a hydropneumothorax of approximately 5 to 10% pneumothorax noted. No significant change. The patient is seen today April 08, 2023 in follow-up on the regular medical floor. He is awake and alert in no acute distress. Maintaining O2 saturations in the 90s on 2 L/min per nasal cannula. Laying in bed. CT scan of the chest revealed moderate-sized bilateral pleural effusions. Left effusion appears loculated and there is additionally a left anterior pneumothorax at approximately 15 to 20%. Consolidation and partial collapse of the left lung. Atelectasis in the right posterior lung. Pleural fluid cultures revealed no growth, no malignancy. No plans for chest tube placement. Eliquis has been resumed. White count 8.5. Hemoglobin 7.7. Platelets 146. Sodium 139. Potassium 3.9. Bicarb 29. BUN 96. Creatinine 3.9. The patient is seen today April 09, 2023 in follow-up on the regular medical floor. He is resting comfortably in bed. Awake and alert in no acute distress. Maintaining O2 saturations in the 90s on 2 L/min per nasal cannula. He denies any worsening shortness of breath, cough or congestion. No new labs today. No chest x-ray today. He is anticoagulated with Eliquis. The patient is seen today April 10, 2023 in follow-up on the regular medical floor. He is awake and alert in no acute distress. Resting fairly comfortably in bed. Today's chest x-ray shows reaccumulation of fluid in the left chest. He is currently on DuoNeb inhalation, Pulmicort inhalations. Remains on oral diuretics. No new labs today. Pleural fluid cultures revealed no growth. He is anticoagulated with Eliquis. The patient is seen today April 11, 2023 in follow-up on the regular medical floor. He is sitting up in bed. Awake and alert in no acute distress. Maintaining O2 saturations in the 90s on 2 L/min per nasal cannula. Sodium 134. Potassium 4.5. Bicarb 30. BUN 130. Creatinine 3.55. Glucose 88. Ultrasound of the chest did reveal a significant left-sided pleural effusion. He under went a second thoracentesis today with 1.2 L of dark yellow fluid removed. Unfortunately, follow-up chest x-ray does reveal a moderate to large left pneumothorax. The patient remains asymptomatic. Repeat chest x-ray pending. He remains on bronchodilators. Remains on oral diuretics. Plan a -1.1 L balance. The patient is seen today April 12, 2023 in follow-up on the regular medical floor. He is awake and alert in no acute distress. Maintaining O2 saturations in the 90s on 2 L/min per nasal cannula. He denies any worsening shortness of breath, cough or congestion. Denies any chest pain. Follow-up chest x-ray continues to show a left apical hydropneumothorax. Slight improvement today compared to yesterday. Pleural fluid cultures revealed no growth. White count 6.5. Hemoglobin 7.6. Platelets 186. Stool for occult blood was positive. He is continued on bronchodilators. Continued on diuretics. Currently in a -700 mL balance. On today's evaluation of 04/13/2023, the patient is being seen for a follow-up. Noted the patient has an acute hypoxic respiratory failure due to CHF and bilateral pleural effusion. Noted the patient had a large left-sided pleural effusion and a small right-sided pleural effusion. His proBNP level was elevated. He underwent a left thoracentesis on 04/05/2023 with a total of 1.4 L of fluid removed that was transudative. Subsequent CAT scan of the chest showed a 15 to 20% pneumothorax. Chest x-ray on 04/10/2023 showed significant recommendation of the left-sided pleural effusion and at the same time there was a persistent pneumothorax on the left. The patient underwent another thoracentesis on 04/11/2023 with a total of 1.2 L of fluid was removed. I reviewed the chest x-ray from today and there is a large stable left-sided hydropneumothorax. Based on that, I inserted the Thora vent in this patient and immediately around 600 cc of pleural fluid was drained in addition to air. The follow-up chest x-ray that was done showed decrease in the left-sided pneumothorax and the thoracostomy tube is in place and attached to suction with persistent air leak. The patient remains clinically and hemodynamically stable on 2 L of oxygen by nasal cannula with a pulse ox of 98%. The patient remains on [facility], on p.o. Lasix 40 mg twice a day. The patient is also on metoprolol 12.5 mg p.o. daily. His echocardiogram that was done on 04/02/2023 showed a left-ventricular ejection fraction of around 30 to 35% along with biatrial enlargement and moderate MR and moderate aortic stenosis/severe aortic stenosis. Moderate degree of tricuspid regurgitation was also present. On today's evaluation of 04/14/2023, I am seeing the patient for a follow- up.Patient has no specific complaints. The Thora vent is still in place and attached to suction. The total amount of output in terms of fluid from the left lung was in the order of 800 cc from yesterday. There is no persistent air leak. I am ordering a urgent chest x-ray to follow-up on the pneumothorax. Otherwise, the patient has no specific complaints. The patient is still on Lasix 40 mg p.o. twice a day. Rest of the medications are essentially unchan ged. Labs from today shows a sodium level of 135, potassium of 5.2, BUN is 124 with a creatinine of 4.1 and a potassium level is at 5.2. Echocardiogram is showing impaired LV function with an ejection fraction of 35% with moderate MR, severe aortic stenosis and bilateral atrial enlargement. The patient is having some fecal occult blood positive and the patient was taken off anticoagulation for now. EGD EGD that was done on 04/13/2023 showed erosive esophagitis and gastritis. On today's evaluation of 04/15/2023, the patient is able to sit up in a chair. He is calm and comfortable. The output from the left sided Thora vent has improved and the fluid output has dropped significantly over the past 24 hours. Repeat chest x-ray was done and the patient continues to have a very trace left apical pneumothorax. There is also some limited subcutaneous emphysema. Overall, the patient is doing well. No significant respiratory distress and the patient was transitioned to room air oxygen with a pulse ox of 94%. The patient is currently on Lasix 40 mg p.o. twice a day. He is on DuoNeb nebulized treatments [id number]. Renal function is being monitored. BUN is at 131 with a creatinine of 4.4 and sodium levels at 134. The WBC count of 8.4 with a hemoglobin of 7.2. Note that the total vent is still faster suction. There is no evidence of any air leak. Suction is being applied in regards to his left- sided pleural effusion which seems to be adequately drained at this point in time. On today's evaluation of 04/16/2023, the patient is being seen for a follow-up. He is doing well. No specific complaints. I repeated the chest x-ray earlier this morning and there was no evidence of any pneumothorax. No evidence of any air leak and I took the opportunity to remove the Thora vent from his left lung. He remained stable and the patient is currently on 2 L of oxygen by nasal cannula with a pulse ox of 96%. Denies having any specific complaints. He has chronic kidney disease and the patient is being monitored by nephrology. Hemoglobin today is at 6.78 the patient does not have any acute signs of GI bleeding. The patient had also a potassium level of 5.4. The patient was seen by nephrology and the patient will be given another dose of Lokelma 10 g and the patient is still maintained on Lasix 40 mg p.o. twice a day. Bronchodilators still being given in the form of DuoNeb nebulized treatments [id number] 4 times a day. The patient is on Aranesp. The patient is also scheduled to receive unit of packed RBC today. On today's evaluation of 04/17/2023, the patient respite status is stable and the patient is currently on 3 L O2 nasal cannula With a pulse ox of 97%. A repeat chest x-ray was done today and shows no evidence of any pneumothorax. The pat ient has developed a small left-sided pleural effusion. Otherwise, the patient is stable. Hemoglobin is at 7.9 with a white cell count of 7. Sodium level is at 132 with a potassium level of 5.8. The BUN is up to 143 with a creatinine of 5.0 as the patient has an acute on top of chronic kidney failure. His creatinine has been steadily on the rise. Nephrology on the case for now. Patient remains on Lasix 40 mg p.o. twice a day. On today's evaluation of 04/18/2023, respiratory status is stable and the patient has no respiratory difficulties. Nevertheless, there has been progressive worse quinn renal function and on today's evaluation his sodium level is at 135 with a potassium level of 5.9. The BUN is up to 153 with a creatinine of 5.2. Nephrology on the case and the patient was given a temporary dialysis catheter and the patient was started on hemodialysis for an acute on top of chronic kidney disease. He was started on hemodialysis today on 04/18/2023. He has a right femoral temporary dialysis catheter in place. He is feeling well. No other major respiratory difficulties. Any hemodynamic instability. 04/19/2023, the patient has no specific complaints. The patient was started on hemodialysis on 04/18/2023. He tolerated dialysis well with a total of 900 cc of ultrafiltration. He is resting comfortably in bed. No dialysis for today and this will be done tomorrow on 04/20/2023. No respiratory difficulties and he remains on 2 L of oxygen by nasal cannula. No cough or sputum production. No altered mentation. Potassium level today is at 5.2 with a BUN of 110 and a cre atinine of 3.7. WBC count 7.2 with a hemoglobin of 8.5. The patient is seen today April 20, 2023 in follow-up on the regular medical floor. He is currently sitting up in bed. Awake and alert in no acute distress. He is maintaining O2 saturations in the upper 90s on 2 L/min per nasal cannula. Afebrile. Hemodynamically stable. Currently receiving hemodialysis. The plan is for colonoscopy today as well. He is status post 1 unit of packed red blood cells this admission. Hemoglobin currently 8.2. Platelets 206. White count 7.1. Sodium 133. Potassium 4.8. Bicarb 29. BUN 112. Creatinine 4.19. He remains on remains on oral diuretics. The patient is seen today April 21, 2023 in follow-up on the regular medical floor. He is awake and alert in no acute distress. Resting comfortably in bed. Denies any worsening shortness of breath, cough or congestion. He is maintaining O2 saturation in the 90s on 3 L/min per nasal cannula. He is having some complaints of a sore throat. He did undergo EGD yesterday that revealed esophageal stricture and had undergone esophageal dilatation. Colonoscopy revealed severe sigmoid diverticulosis. White count 6.1. Hemoglobin 8.3. Platelets 182. Sodium 137. Potassium 4.4. Bicarb 27. BUN 62. Creatinine 3.5. Glucose 84. Plan is for repeat dialysis tomorrow. The patient is seen today April 22, 2023 in follow-up on the regular medical floor. He is currently resting comfortably in bed. Awake and alert in no acute distress. Undergoing hemodialysis today. He is maintaining good O2 saturations in the upper 90s on 3 L/min per nasal cannula. He is afebrile. Hemodynamically stable. Follow-up chest x-ray does reveal cardiomegaly and some pulmonary vascular congestion with bilateral effusions. He is status post 1 unit of packe d red blood cells this admission. Current hemoglobin 8.4. Platelets 201. White count 6.8. Sodium 136. Potassium 4.2. Bicarb 27. BUN 67. Creatinine 3.8. He is continued on oral diuretics. Objective - Vital Signs Vital signs: Vital Signs Temp 98.0 F 04/22/23 10:46 Pulse 69 04/22/23 10:46 Resp 18 04/22/23 10:46 BP 126/54 04/22/23 10:46 Pulse Ox 97 04/22/23 07:37 FiO2 Intake & Output 04/21/23 04/22/23 04/22/23 18:59 06:59 18:59 Intake Total 200 Output Total 150 400 Balance 50 -400 Weight 74.5 kg 81 kg Intake: IV 200 Output: Urine 150 400 Other: Voiding Method Indwelling Catheter Indwelling Catheter Indwelling Catheter - Exam GENERAL EXAM: Alert, frail 87-year-old male, on 3 L nasal cannula, in no appar ent distress. HEAD: Normocephalic and atraumatic EYES: Normal reaction of pupils, equal size. NOSE: Clear with pink turbinates. THROAT: Mild erythema, no exudates NECK: No masses, no JVD. CHEST: No chest wall deformity. LUNGS: Equal air entry with right basilar inspiratory crackles. Diminished in t he left lung base. CVS: S1 and S2 normal with no audible murmur, regular rhythm. No extra heart shantel nds ABDOMEN: No hepatosplenomegaly, active bowel sounds, no guarding or rigidity. SPINE: No scoliosis or deformity SKIN: No rashes CENTRAL NERVOUS SYSTEM: No focal deficits, tone is normal in all 4 extremities. EXTREMITIES: Right femoral hemodialysis catheter in place. There is moderate bilateral lower extremity nonpitting edema. Peripheral pulses are intact. - Labs CBC & Chem 7: 04/22/23 05:42 04/22/23 05:42 Labs: Abnormal Lab Results - Last 24 Hours (Table) 04/22/23 04/22/23 Range/Units 05:42 05:42 RBC 2.71 L (4.40-5.60) X 10*6/uL Hgb 8.4 L (13.0-17.0) g/dL Hct 26.1 L (39.6-50.0) % RDW 15.8 H (11.5-14.5) % BUN 67.3 H (9.0-27.0) mg/dL Creatinine 3.8 H (0.6-1.5) mg/dL Est GFR (CKD-EPI) 15 L (>=60) Assessment and Plan Assessment: Acute hypoxemic respiratory failure, secondary to acute systolic CHF exacerbation and fluid overload. Chest x-ray shows cardiomegaly, pulmonary vascular congestion, and interstitial edema. Patient also has moderate to large left-sided pleural effusion and a small right pleural effusion. NT proBNP was elevated at 57,800. Status post left-sided thoracentesis April 05, 2023 with 1.4 L of straw-colored fluid removed. Fluid analysis transudate, cytology for malignancy. CT scan of the chest and follow-up chest x-ray reveals stable hydropneumothorax of approximately 15 to 20%. Chest x-ray April 10, 2023 shows significant reaccumulation of fluid in the left chest. Ultrasound reveals a recurrent left pleural effusion measuring 10.4 cm. A second thoracentesis was performed April 11, 2023 with 1.2 L of fluid removed. Moderate left-sided pneumothorax post procedure, Thora vent placed and subsequently removed 04/16/2023 Systolic heart failure with ejection fraction of 30 to 35% Moderate to severe aortic stenosis Moderate mitral regurgitation Acute on chronic kidney disease, creatinine was on the rise, started on hemodialysis Severe hyperkalemia, improved post hemodialysis Lactic acidosis, improved Chronic obstructive pulmonary disease, stable History of paroxysmal atrial fibrillation, anticoagulated on Eliquis, currently normal sinus Benign prostatic hyperplasia Anemia of chronic disease, patient reportedly received 1 unit PRBC at [facility] and a second unit here Erosive esophagitis and gastritis. EGD from 04/20/2023 revealed esophageal s tricture and is status post dilatation Severe diverticulosis noted on colonoscopy 04/20/2023 Plan: The patient was seen and evaluated Labs and medications reviewed Receiving hemodialysis today Continued on diuretics Plan is for home with home care Scheduled to have hemodialysis at [facility] I have personally seen and examined the patient, performed the documentation and the assessment and plan as written. Number of minutes spent on the visit: 10.
--- NOTE | 2023-04-22 15:39 | P.PN ---
Subjective Progress Note Date: 04/22/23 CHIEF COMPLAINT: Anemia HISTORY OF PRESENT ILLNESS: Patient presented with anemia and GI bleed. Patient status post EGD and colonoscopy. Colonoscopy reported diverticulosis and internal hemorrhoids. EGD had reported hypertensive upper esophageal sphincter status post EGD with dilation. Patient tolerating pured diet. Patient reports minimal soreness in the throat. Afebrile. WBC 6.8 hemoglobin stable at 8.4. Chest x-ray had reported cardiomegaly and pulmonary vascular congestion and bilateral pleural effusions. PHYSICAL EXAM: VITAL SIGNS: Reviewed GENERAL: Well-developed in no acute distress. HEENT: No sclera icterus. Extraocular movements grossly intact. Moist buccal mucosa. Head is atraumatic, normocephalic. Hears conversational speech. No nasal drainage. NECK: Supple without lymphadenopathy. CHEST: Non-labored respirations and equal bilateral excursions. CARDIOVASCULAR: Palpable 2+ radial pulses. ABDOMEN: Soft. Nondistended. Nontender. MUSCULOSKELETAL: No clubbing or cyanosis. NEUROLOGIC: No focal or lateralizing signs. Cranial nerves II through XII grossly intact. PSYCH: Appropriate affect. Alert and oriented to person, place and time. SKIN: Well perfused. Good skin turgor. ASSESSMENT: 1. Anemia status post EGD with acute gastritis with bleeding and erosive esophagitis. Status post colonoscopy with diverticulosis and internal hemorrhoids 2. Left pneumothorax status post left-sided Thora vent and removal 3. History of left pleural effusion status post left-sided thoracentesis 4. Acute on chronic kidney disease 5. Atrial fibrillation 6. Severe aortic stenosis 7. Dysphagia 8. 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 Signing provider agrees with the documented findings, assessment, and plan of care. CHIEF COMPLAINT: GI bleed HISTORY OF PRESENT ILLNESS: The patient is a 87 year old male with dysphagia and anemia. He is tolerating pured diet. No further bleeding. REVIEW OF ORGAN SYSTEMS: No fevers or chills. No nausea or vomiting. No shortness of breath. PHYSICAL EXAM: VITALS: Reviewed CONSTITUTIONAL: Well developed and in no acute distress. EYES: Conjuctivae without sclera icterus. Extraocular movements grossly intact. HEAD, EARS, NOSE, THROAT: Moist buccal mucosa. Head is atraumatic, normocephalic. Hears conversational speech. No nasal drainage. RESPIRATORY: Non-labored respirations and equal bilateral excursions. No gross wheezes. CARDIOVASCULAR: Palpable 2+ radial pulses. ABDOMEN: No abdominal pain. MUSCULOSKELETAL: No clubbing cyanosis or edema SKIN: Warm and well perfused with good skin turgor. NEUROLOGIC: Cranial nerves II through XII grossly intact. No focal or lateralizing signs. PSYCH: Appropriate affect. Alert and oriented to person, place and time. CLINCAL LABS: Reviewed. ASSESSMENT: 1. Anemia 2. GI bleed 3. Acute on chronic kidney failure 4. Atrial fibrillation 5. Ischemic cardiomyopathy 6. Chronic obstructive pulmonary disease 7. Pneumothorax 8. Dysphagia 9. Aortic stenosis PLAN: 1. May advance diet as tolerated. 2. Continue protonix 3. May resume blood thinner Objective - Vital Signs Vital signs: Vital Signs Temp 98.0 F 04/22/23 10:46 Pulse 69 04/22/23 10:46 Resp 18 04/22/23 10:46 BP 126/54 04/22/23 10:46 Pulse Ox 97 04/22/23 07:37 FiO2 Intake & Output 04/21/23 04/22/23 04/22/23 18:59 06:59 18:59 Intake Total 200 Output Total 150 400 Balance 50 -400 Weight 74.5 kg 81 kg Intake: IV 200 Output: Urine 150 400 Other: Voiding Method Indwelling Catheter Indwelling Catheter Indwelling Catheter - Labs CBC & Chem 7: 04/27/23 05:45 04/27/23 05:45 Labs: Abnormal Lab Results - Last 24 Hours (Table) 04/22/23 04/22/23 Range/Units 05:42 05:42 RBC 2.71 L (4.40-5.60) X 10*6/uL Hgb 8.4 L (13.0-17.0) g/dL Hct 26.1 L (39.6-50.0) % RDW 15.8 H (11.5-14.5) % BUN 67.3 H (9.0-27.0) mg/dL Creatinine 3.8 H (0.6-1.5) mg/dL Est GFR (CKD-EPI) 15 L (>=60)
--- NOTE | 2023-04-23 13:15 | P.PN ---
Subjective Patient is seen for follow-up for acute kidney injury on top of chronic kidney disease. Renal function had deteriorated and patient is started on hemodialysis on 04/18/2023. Status post right IJ permacath placement No significant complaints today. Scheduled for hemodialysis in a.m. Patient will be maintained on a Thursday schedule in [facility] Objective - Vital Signs Vital signs: Vital Signs Temp 98.1 F 04/23/23 06:47 Pulse 66 04/23/23 12:30 Resp 16 04/23/23 06:47 BP 101/41 04/23/23 12:30 Pulse Ox 94 L 04/23/23 09:07 FiO2 Intake & Output 04/22/23 04/23/23 04/23/23 18:59 06:59 18:59 Output Total 200 75 Balance -200 -75 Output: Urine 200 75 Other: Voiding Method Indwelling Catheter Indwelling Catheter - Exam Patient is awake, comfortable, no acute distress Examination of the heart S1 and S2 Examination of the lungs bilateral breath sounds are heard Abdomen is soft nontender Examination lower extremities shows trace edema CONFERENCE ASSISTANT exam grossly intact - Labs CBC & Chem 7: 04/22/23 05:42 04/22/23 05:42 Assessment and Plan Assessment: 1. Acute kidney injury secondary to ATN secondary to anemia and cardiorenal syndrome along with urinary retention. Renal function continued to worsen and therefore patient is started on hemodialysis on 04/18/2023. No obstruction noted on ultrasound. Elevated BUN secondary to GI bleed. 2. Chronic kidney disease stage IV with baseline creatinine near 3 secondary to nephrosclerosis and obstructive uropathy. 3. Hyperkalemia secondary to acute kidney injury, acidosis and urinary retention. Improved with medical management. 4. Volume overload with pleural effusions. Improved 5. Acute blood loss anemia status post blood transfusion this admission. Eliquis on hold. Possible GI bleed. Maintained on Aranesp 6. Acute on chronic systolic CHF ejection fraction of 30 to 35% with moderate mitral and tricuspid regurgitation. 7. Metabolic acidosis secondary to acute kidney injury improved with bicarb drip. 8. Urinary retention status post Riley catheter placement. On Flomax. 9. Left hydropneumothorax, stable Plan: Hemodialysis in a.m. as well as on 04/25/2023
--- NOTE | 2023-04-23 14:36 | P.PN ---
Subjective Progress Note Date: 04/23/23 I am seeing this patient in consultation today 04/02/2023 for dyspnea and left- sided pleural effusion. He is currently in the emergency room. He was transferred from [facility] late last night for severe hyperkalemia and acute kidney injury. Patient is a 87-year-old white male with past medical history significant for chronic kidney disease, congestive heart failure, atrial fibrillation anticoagulated on Eliquis, hyperlipidemia, COPD, and BPH. Patient is technically a poor historian. Apparently, he is complaining of shortness of breath, weakness and sore throat over the last several days. This progressively worsened, and he went into [facility] to be evaluated. Patient was found to be severely hyperkalemic. He was also found to be anemic and was transfused 1 unit PRBC. He was transferred to [facility]. Patient is currently resting in bed, on 2 L/min nasal cannula, in no acute distress. He is weak and cannot sit up in bed without assistance. Becomes short of breath with any kind of activity. He denies any chest pain, heart palpitations, or syncopal events. He does have bilateral lower extremity swelling. He has an occasional nonproductive cough. Denies any sputum production, fevers. Chest x-ray on arrival shows cardiomegaly, pulmonary vascu lar congestion, and interstitial edema. There is a moderate to large left-sided pleural effusion and small right pleural effusion.. Patient was given 60 mg of IV Lasix. A Riley catheter was inserted, and the patient has approximately 800 mL of concentrated urine. Patient states that earlier in the week he has had troubles urinating. He voids about 2-3 times per day. Endorses dysuria. Denies any hematuria, urinary frequency. Urinalysis on arrival not concerning for UTI. Trace protein. He does have baseline chronic kidney disease. Ultrasound of the abdomen and bladder did not show any hydronephrosis. Potassium level on arrival was elevated at 8.4 and is down to 5 point 3:06 amp sodium bicarb, 10 g Lokelma, 10 units insulin, 2 A D50 W, calcium gluconate, and the above-mentioned Lasix. Nephrology has been consulted. There is D5W with 3 amp sodium bicarb infusing at 50 MLS per hour. BMP on arrival has a sodium 138, testing 8.4, chloride 108, serum bicarb 18, BUN 74, creatinine 3.68, and glucose 85. Lactic acid level was 3.8 on arrival and is down to 1.6. Troponin less daniel n 0.012. NT proBNP 57,800. ECG shows normal sinus rhythm with chronic left bundle branch block without any obvious hyperkalemic changes. CBC on arrival: WBC count 8.4, hemoglobin 10.7, hematocrit 34, platelets 121. Group A strep negative. No signs of bleeding. Patient has chronic anemia. Patient denies any acute blood loss. No bloody bowel movements, melena, hematemesis. No abdominal pain or diarrhea. Vital signs are stable. The patient is seen today April 03, 2023 in follow-up in the emergency department. He is currently sitting up on the stretcher. Awake and alert in no acute distress. He is breathing a bit easier today compared to yesterday. He states he is about 50% better. He is still somewhat bronchospastic and wheezing. White count 8.6. Hemoglobin 8.1. Platelets 127. Sodium 139. Potassium 5.0. BUN 89. Creatinine 4.02. Glucose 118. He is continued on IV diuretics. Anticoagulated with Eliquis. Continued on bronchodilators. Currently in a -1.2 L balance. Making good urine. The patient is seen today April 04, 2023 in follow-up on the regular medical floor. He is awake and alert in no acute distress. Resting fairly comfortably in bed. Denies any worsening shortness of breath, cough or congestion. He is maintaining O2 saturation in the 90s on 2 L/min per nasal cannula. Chest x-ray does reveal increasing left pleural effusion and a right-sided pleural effusion. Echocardiogram confirms a right-sided pleural effusion measuring 11.9 cm, left- sided pleural effusion at 10.8 cm. The patient is currently on Eliquis this will be placed on hold for possible left-sided thoracentesis tomorrow. Count 9.0. Hemoglobin 7.8. Platelets 140. Sodium 140. Potassium 4.8. Bicarb 28. BUN 87. Creatinine 4.1. Glucose 88. He remains on Lasix 60 mg IV twice a day. Currently net -1.5 L balance The patient is seen today April 05, 2023 in follow-up on the regular medical floor. He is currently sitting up in bed. Awake and alert in no acute distress. He is maintaining O2 saturations in the 90s 2 L/min per nasal cannula. He is been afebrile. Hemodynamically stable. He did undergo a left- sided thoracentesis today with 1.4 L of straw-colored fluid removed. Fluid sent for analysis and cytology. Follow-up chest x-ray reveals a tiny left apical pneumothorax. Sodium 137. Potassium 4.1. Bicarb 31. BUN 97. Creatinine 3.86. Glucose 101. Remains on IV diuretics. Currently in a -2.8 L balance. The patient is seen today April 06, 2023 in follow-up on the regular medical floor. He is awake and alert no acute distress. He is resting comfortably in bed. He is maintaining good O2 saturations in the 90s on 2 L/min per nasal cannula. He remains on IV diuretics. Currently net -2.7 L balance. He is status post left-sided thoracentesis yesterday with 1.4 L of straw-colored fluid removed. Cytology pending. Fluid analysis transudate with a total protein of 2.6 and an LDH of 80. Today's chest x-ray shows small bilateral effusions. No evidence of pneumothorax. Count 8.7. Hemoglobin 7.7. Platelets 139. Sodium 1 39. Potassium 4.2. Bicarb 29. BUN 91. Creatinine 4.0. The patient is seen today April 07, 2023 in follow-up on the regular medical floor. He is resting comfortably in bed. Awake and alert in no acute distress. Maintaining O2 saturations in the 90s on 2 L/min per nasal cannula. He is cont inued on bronchodilators and oral diuretics. Currently net -1.2 L balance. Follow-up chest x-ray revealed creasing consolidation and pleural effusion on the left. Likely represents a hydropneumothorax of approximately 5 to 10% pneumothorax noted. No significant change. The patient is seen today April 08, 2023 in follow-up on the regular medical floor. He is awake and alert in no acute distress. Maintaining O2 saturations in the 90s on 2 L/min per nasal cannula. Laying in bed. CT scan of the chest revealed moderate-sized bilateral pleural effusions. Left effusion appears loculated and there is additionally a left anterior pneumothorax at approximately 15 to 20%. Consolidation and partial collapse of the left lung. Atelectasis in the right posterior lung. Pleural fluid cultures revealed no growth, no malignancy. No plans for chest tube placement. Eliquis has been resumed. White count 8.5. Hemoglobin 7.7. Platelets 146. Sodium 139. Potassium 3.9. Bicarb 29. BUN 96. Creatinine 3.9. The patient is seen today April 09, 2023 in follow-up on the regular medical floor. He is resting comfortably in bed. Awake and alert in no acute distress. Maintaining O2 saturations in the 90s on 2 L/min per nasal cannula. He denies any worsening shortness of breath, cough or congestion. No new labs today. No chest x-ray today. He is anticoagulated with Eliquis. The patient is seen today April 10, 2023 in follow-up on the regular medical floor. He is awake and alert in no acute distress. Resting fairly comfortably in bed. Today's chest x-ray shows reaccumulation of fluid in the left chest. He is currently on DuoNeb inhalation, Pulmicort inhalations. Remains on oral diuretics. No new labs today. Pleural fluid cultures revealed no growth. He is anticoagulated with Eliquis. The patient is seen today April 11, 2023 in follow-up on the regular medical floor. He is sitting up in bed. Awake and alert in no acute distress. Maintaining O2 saturations in the 90s on 2 L/min per nasal cannula. Sodium 134. Potassium 4.5. Bicarb 30. BUN 130. Creatinine 3.55. Glucose 88. Ultrasound of the chest did reveal a significant left-sided pleural effusion. He under went a second thoracentesis today with 1.2 L of dark yellow fluid removed. Unfortunately, follow-up chest x-ray does reveal a moderate to large left pneumothorax. The patient remains asymptomatic. Repeat chest x-ray pending. He remains on bronchodilators. Remains on oral diuretics. Plan a -1.1 L balance. The patient is seen today April 12, 2023 in follow-up on the regular medical floor. He is awake and alert in no acute distress. Maintaining O2 saturations in the 90s on 2 L/min per nasal cannula. He denies any worsening shortness of breath, cough or congestion. Denies any chest pain. Follow-up chest x-ray continues to show a left apical hydropneumothorax. Slight improvement today compared to yesterday. Pleural fluid cultures revealed no growth. White count 6.5. Hemoglobin 7.6. Platelets 186. Stool for occult blood was positive. He is continued on bronchodilators. Continued on diuretics. Currently in a -700 mL balance. On today's evaluation of 04/13/2023, the patient is being seen for a follow-up. Noted the patient has an acute hypoxic respiratory failure due to CHF and bilateral pleural effusion. Noted the patient had a large left-sided pleural effusion and a small right-sided pleural effusion. His proBNP level was elevated. He underwent a left thoracentesis on 04/05/2023 with a total of 1.4 L of fluid removed that was transudative. Subsequent CAT scan of the chest showed a 15 to 20% pneumothorax. Chest x-ray on 04/10/2023 showed significant recommendation of the left-sided pleural effusion and at the same time there was a persistent pneumothorax on the left. The patient underwent another thoracentesis on 04/11/2023 with a total of 1.2 L of fluid was removed. I reviewed the chest x-ray from today and there is a large stable left-sided hydropneumothorax. Based on that, I inserted the Thora vent in this patient and immediately around 600 cc of pleural fluid was drained in addition to air. The follow-up chest x-ray that was done showed decrease in the left-sided pneumothorax and the thoracostomy tube is in place and attached to suction with persistent air leak. The patient remains clinically and hemodynamically stable on 2 L of oxygen by nasal cannula with a pulse ox of 98%. The patient remains on [facility], on p.o. Lasix 40 mg twice a day. The patient is also on metoprolol 12.5 mg p.o. daily. His echocardiogram that was done on 04/02/2023 showed a left-ventricular ejection fraction of around 30 to 35% along with biatrial enlargement and moderate MR and moderate aortic stenosis/severe aortic stenosis. Moderate degree of tricuspid regurgitation was also present. On today's evaluation of 04/14/2023, I am seeing the patient for a follow- up.Patient has no specific complaints. The Thora vent is still in place and attached to suction. The total amount of output in terms of fluid from the left lung was in the order of 800 cc from yesterday. There is no persistent air leak. I am ordering a urgent chest x-ray to follow-up on the pneumothorax. Otherwise, the patient has no specific complaints. The patient is still on Lasix 40 mg p.o. twice a day. Rest of the medications are essentially unchan ged. Labs from today shows a sodium level of 135, potassium of 5.2, BUN is 124 with a creatinine of 4.1 and a potassium level is at 5.2. Echocardiogram is showing impaired LV function with an ejection fraction of 35% with moderate MR, severe aortic stenosis and bilateral atrial enlargement. The patient is having some fecal occult blood positive and the patient was taken off anticoagulation for now. EGD EGD that was done on 04/13/2023 showed erosive esophagitis and gastritis. On today's evaluation of 04/15/2023, the patient is able to sit up in a chair. He is calm and comfortable. The output from the left sided Thora vent has improved and the fluid output has dropped significantly over the past 24 hours. Repeat chest x-ray was done and the patient continues to have a very trace left apical pneumothorax. There is also some limited subcutaneous emphysema. Overall, the patient is doing well. No significant respiratory distress and the patient was transitioned to room air oxygen with a pulse ox of 94%. The patient is currently on Lasix 40 mg p.o. twice a day. He is on DuoNeb nebulized treatments [id number]. Renal function is being monitored. BUN is at 131 with a creatinine of 4.4 and sodium levels at 134. The WBC count of 8.4 with a hemoglobin of 7.2. Note that the total vent is still faster suction. There is no evidence of any air leak. Suction is being applied in regards to his left- sided pleural effusion which seems to be adequately drained at this point in time. On today's evaluation of 04/16/2023, the patient is being seen for a follow-up. He is doing well. No specific complaints. I repeated the chest x-ray earlier this morning and there was no evidence of any pneumothorax. No evidence of any air leak and I took the opportunity to remove the Thora vent from his left lung. He remained stable and the patient is currently on 2 L of oxygen by nasal cannula with a pulse ox of 96%. Denies having any specific complaints. He has chronic kidney disease and the patient is being monitored by nephrology. Hemoglobin today is at 6.78 the patient does not have any acute signs of GI bleeding. The patient had also a potassium level of 5.4. The patient was seen by nephrology and the patient will be given another dose of Lokelma 10 g and the patient is still maintained on Lasix 40 mg p.o. twice a day. Bronchodilators still being given in the form of DuoNeb nebulized treatments [id number] 4 times a day. The patient is on Aranesp. The patient is also scheduled to receive unit of packed RBC today. On today's evaluation of 04/17/2023, the patient respite status is stable and the patient is currently on 3 L O2 nasal cannula With a pulse ox of 97%. A repeat chest x-ray was done today and shows no evidence of any pneumothorax. The pat ient has developed a small left-sided pleural effusion. Otherwise, the patient is stable. Hemoglobin is at 7.9 with a white cell count of 7. Sodium level is at 132 with a potassium level of 5.8. The BUN is up to 143 with a creatinine of 5.0 as the patient has an acute on top of chronic kidney failure. His creatinine has been steadily on the rise. Nephrology on the case for now. Patient remains on Lasix 40 mg p.o. twice a day. On today's evaluation of 04/18/2023, respiratory status is stable and the patient has no respiratory difficulties. Nevertheless, there has been progressive worse quinn renal function and on today's evaluation his sodium level is at 135 with a potassium level of 5.9. The BUN is up to 153 with a creatinine of 5.2. Nephrology on the case and the patient was given a temporary dialysis catheter and the patient was started on hemodialysis for an acute on top of chronic kidney disease. He was started on hemodialysis today on 04/18/2023. He has a right femoral temporary dialysis catheter in place. He is feeling well. No other major respiratory difficulties. Any hemodynamic instability. 04/19/2023, the patient has no specific complaints. The patient was started on hemodialysis on 04/18/2023. He tolerated dialysis well with a total of 900 cc of ultrafiltration. He is resting comfortably in bed. No dialysis for today and this will be done tomorrow on 04/20/2023. No respiratory difficulties and he remains on 2 L of oxygen by nasal cannula. No cough or sputum production. No altered mentation. Potassium level today is at 5.2 with a BUN of 110 and a cre atinine of 3.7. WBC count 7.2 with a hemoglobin of 8.5. The patient is seen today April 20, 2023 in follow-up on the regular medical floor. He is currently sitting up in bed. Awake and alert in no acute distress. He is maintaining O2 saturations in the upper 90s on 2 L/min per nasal cannula. Afebrile. Hemodynamically stable. Currently receiving hemodialysis. The plan is for colonoscopy today as well. He is status post 1 unit of packed red blood cells this admission. Hemoglobin currently 8.2. Platelets 206. White count 7.1. Sodium 133. Potassium 4.8. Bicarb 29. BUN 112. Creatinine 4.19. He remains on remains on oral diuretics. The patient is seen today April 21, 2023 in follow-up on the regular medical floor. He is awake and alert in no acute distress. Resting comfortably in bed. Denies any worsening shortness of breath, cough or congestion. He is maintaining O2 saturation in the 90s on 3 L/min per nasal cannula. He is having some complaints of a sore throat. He did undergo EGD yesterday that revealed esophageal stricture and had undergone esophageal dilatation. Colonoscopy revealed severe sigmoid diverticulosis. White count 6.1. Hemoglobin 8.3. Platelets 182. Sodium 137. Potassium 4.4. Bicarb 27. BUN 62. Creatinine 3.5. Glucose 84. Plan is for repeat dialysis tomorrow. The patient is seen today April 22, 2023 in follow-up on the regular medical floor. He is currently resting comfortably in bed. Awake and alert in no acute distress. Undergoing hemodialysis today. He is maintaining good O2 saturations in the upper 90s on 3 L/min per nasal cannula. He is afebrile. Hemodynamically stable. Follow-up chest x-ray does reveal cardiomegaly and some pulmonary vascular congestion with bilateral effusions. He is status post 1 unit of packe d red blood cells this admission. Current hemoglobin 8.4. Platelets 201. White count 6.8. Sodium 136. Potassium 4.2. Bicarb 27. BUN 67. Creatinine 3.8. He is continued on oral diuretics. The patient is seen today April 23, 2023 in follow-up on the regular medical floor. He is awake and alert in no acute distress. Resting in bed. Maintaining O2 saturations in the 90s on 3 L/min per nasal cannula. He remains on hemodialysis receiving it today on his Thursday schedule. No new labs today. Objective - Vital Signs Vital signs: Vital Signs Temp 98.1 F 04/23/23 06:47 Pulse 66 04/23/23 12:30 Resp 16 04/23/23 06:47 BP 101/41 04/23/23 12:30 Pulse Ox 94 L 04/23/23 09:07 FiO2 Intake & Output 04/22/23 04/23/23 04/23/23 18:59 06:59 18:59 Output Total 200 75 Balance -200 -75 Weight 81 kg Output: Urine 200 75 Other: Voiding Method Indwelling Catheter Indwelling Catheter - Exam GENERAL EXAM: Alert, 87-year-old male, resting in bed, on 3 L nasal cannula, in no apparent distress. HEAD: Normocephalic and atraumatic EYES: Normal reaction of pupils, equal size. NOSE: Clear with pink turbinates. THROAT: Mild erythema, no exudates NECK: No masses, no JVD. CHEST: No chest wall deformity. LUNGS: Equal air entry with right basilar inspiratory crackles. Diminished in the left lung base. CVS: S1 and S2 normal with no audible murmur, regular rhythm. No extra heart sounds ABDOMEN: No hepatosplenomegaly, active bowel sounds, no guarding or rigidity. SPINE: No scoliosis or deformity SKIN: No rashes CENTRAL NERVOUS SYSTEM: No focal deficits, tone is normal in all 4 extremities. EXTREMITIES: Right femoral hemodialysis catheter in place. There is moderate bilateral lower extremity nonpitting edema. Peripheral pulses are intact. - Labs CBC & Chem 7: 04/22/23 05:42 04/22/23 05:42 Assessment and Plan Assessment: Acute hypoxemic respiratory failure, secondary to acute systolic CHF exacerbation and fluid overload. Chest x-ray shows cardiomegaly, pulmonary vascular congestion, and interstitial edema. Patient also has moderate to large left-sided pleural effusion and a small right pleural effusion. NT proBNP was elevated at 57,800. Status post left-sided thoracentesis April 05, 2023 with 1.4 L of straw-colored fluid removed. Fluid analysis transudate, cytology for malignancy. CT scan of the chest and follow-up chest x-ray reveals stable hydropneumothorax of approximately 15 to 20%. Chest x-ray April 10, 2023 shows significant reaccumulation of fluid in the left chest. Ultrasound reveals a recurrent left pleural effusion measuring 10.4 cm. A second thoracentesis was performed April 11, 2023 with 1.2 L of fluid removed. Moderate left-sided pneumothorax post procedure, Thora vent placed and subsequently removed 04/16/2023 Systolic heart failure with ejection fraction of 30 to 35% Moderate to severe aortic stenosis Moderate mitral regurgitation Acute on chronic kidney disease, creatinine was on the rise, started on hemodialysis Severe hyperkalemia, improved post hemodialysis Lactic acidosis, improved Chronic obstructive pulmonary disease, stable History of paroxysmal atrial fibrillation, anticoagulated on Eliquis, currently normal sinus Benign prostatic hyperplasia Anemia of chronic disease, patient reportedly received 1 unit PRBC at [facility] and a second unit here Erosive esophagitis and gastritis. EGD from 04/20/2023 revealed esophageal stricture and is status post dilatation Severe diverticulosis noted on colonoscopy 04/20/2023 Plan: The patient was seen and evaluated Medications reviewed Receiving hemodialysis today Continued on diuretics Scheduled to have hemodialysis at [facility] starting 04/28/2023 I have personally seen and examined the patient, performed the documentation and the assessment and plan as written. Number of minutes spent on the visit: 10.
--- NOTE | 2023-04-23 14:44 | P.PN ---
Subjective Progress Note Date: 04/23/23 CHIEF COMPLAINT: Anemia HISTORY OF PRESENT ILLNESS: Patient presented with anemia and GI bleed. Patient status post EGD and colonoscopy. Colonoscopy reported diverticulosis and internal hemorrhoids. EGD had reported hypertensive upper esophageal sphincter status post EGD with dilation. Patient currently on regular diet. He reports decrease in the throat soreness. Also improvement in his dysphagia. No nausea or vomiting. Afebrile. Hemoglobin stable at 8.4 PHYSICAL EXAM: VITAL SIGNS: Reviewed GENERAL: Well-developed in no acute distress. HEENT: No sclera icterus. Extraocular movements grossly intact. Moist buccal mucosa. Head is atraumatic, normocephalic. Hears conversational speech. No nasal drainage. NECK: Supple without lymphadenopathy. CHEST: Non-labored respirations and equal bilateral excursions. CARDIOVASCULAR: Palpable 2+ radial pulses. ABDOMEN: Soft. Nondistended. Nontender. MUSCULOSKELETAL: No clubbing or cyanosis. NEUROLOGIC: No focal or lateralizing signs. Cranial nerves II through XII grossly intact. PSYCH: Appropriate affect. Alert and oriented to person, place and time. SKIN: Well perfused. Good skin turgor. ASSESSMENT: 1. Anemia status post EGD with acute gastritis with bleeding and erosive esophagitis. Status post colonoscopy with diverticulosis and internal hemorrhoids 2. Left pneumothorax status post left-sided Thora vent and removal 3. History of left pleural effusion status post left-sided thoracentesis 4. Acute on chronic kidney disease 5. Atrial fibrillation 6. Severe aortic stenosis 7. Dysphagia 8. 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 Signing provider agrees with the documented findings, assessment, and plan of care. CHIEF COMPLAINT: GI bleed HISTORY OF PRESENT ILLNESS: The patient is a 87 year old male with dysphagia and anemia. He reports improvement with swallowing including sore throat. No blood in stools. Hemoglobin is improving. REVIEW OF ORGAN SYSTEMS: No fevers or chills. No nausea or vomiting. No shortness of breath. PHYSICAL EXAM: VITALS: Reviewed CONSTITUTIONAL: Well developed and in no acute distress. EYES: Conjuctivae without sclera icterus. Extraocular movements grossly intact. HEAD, EARS, NOSE, THROAT: Moist buccal mucosa. Head is atraumatic, normocephalic. Hears conversational speech. No nasal drainage. RESPIRATORY: Non-labored respirations and equal bilateral excursions. No gross wheezes. CARDIOVASCULAR: Palpable 2+ radial pulses. ABDOMEN: No abdominal pain. MUSCULOSKELETAL: No clubbing cyanosis or edema SKIN: Warm and well perfused with good skin turgor. NEUROLOGIC: Cranial nerves II through XII grossly intact. No focal or lateralizing signs. PSYCH: Appropriate affect. Alert and oriented to person, place and time. CLINCAL LABS: Reviewed. Hemoglobin of 8.4 ASSESSMENT: 1. Anemia 2. GI bleed 3. Acute on chronic kidney failure 4. Atrial fibrillation 5. Ischemic cardiomyopathy 6. Chronic obstructive pulmonary disease 7. Pneumothorax 8. Dysphagia 9. Aortic stenosis PLAN: 1. Diet as tolerated 2. May resume blood thinner 3. Monitor hemoglobin Objective - Vital Signs Vital signs: Vital Signs Temp 98.1 F 04/23/23 06:47 Pulse 66 04/23/23 12:30 Resp 16 04/23/23 06:47 BP 101/41 04/23/23 12:30 Pulse Ox 94 L 04/23/23 09:07 FiO2 Intake & Output 04/22/23 04/23/23 04/23/23 18:59 06:59 18:59 Output Total 200 75 Balance -200 -75 Weight 81 kg Output: Urine 200 75 Other: Voiding Method Indwelling Catheter Indwelling Catheter - Labs CBC & Chem 7: 04/27/23 05:45 04/27/23 05:45
--- NOTE | 2023-04-24 06:25 | P.PN ---
Subjective Progress Note Date: 04/23/23 Patient is a 87-year-old white male with past medical history significant for chronic kidney disease, congestive heart failure, atrial fibrillation anticoagulated on Eliquis, hyperlipidemia, COPD, and BPH, who was transferred from [facility] for severe hyperkalemia and acute kidney injury. Patient has been complaining of shortness of breath and weakness for a few days. Patient also complaining of sore throat. Patient weakness and shortness of breath progressed so he eventually presented to [facility] where he was evaluated, patient was found to have elevated potassium levels of 8.4, patient was given hyperkalemia protocol and received sodium bicarb, Lokelma, insulin and dextrose. Chest x-ray done showed large left pleural effusion small right pleural effusion, patient was transferred to [facility]. Patient has been complaining of shortness of breath on exertion and rest. Denies any chest pain. There is complaint of swelling of lower extremities. Patient complaining of nonproductive cough. Denies any fevers or chills Patient admitted to internal medicine service 04/03. Patient seen and examined. 2D echo done showed LVEF of 35% with global hypokinesis, severe biatrial enlargement, moderate mitral regurg, severe aortic stenosis. 04/04. Patient seen and examined. States breathing is improving, still gets short of breath on exertion. 04/05. Patient seen and examined. Patient being planned for thoracentesis this morning with pulmonary medicine. States breathing is improved. Denies any nausea or vomiting 04/06. Patient seen and examined. States breathing has improved, feels much better after thoracentesis yesterday. Labs done this morning showed WBC 8.7, hemoglobin 7.7, platelet count 139, sodium 139, potassium 4.2, BUN 90, creatinine 4 04/07/2023 Patient is currently sitting up in the chair. Awake alert and oriented 3. Currently on 2 L oxygen via nasal cannula. Patient is being cannula on by mouth twice a day. Also on DuoNeb's and Pulmicort inhalation. No comments of nausea or vomiting. Tolerating oral diet. No bowel movement today. Laboratory data showed sodium 138 potassium 4.0 chloride 95 BUN 91.1 and creatinine 4.0 Patient is being followed by pulmonary and nephrology. Chest x-ray showed increasing consolidation and pleural effusion on the left. Likely represent a hydropneumothorax of approximately 5-10% pneumothorax noted. No significant interval change. 04/08/2023 Patient is currently sitting which it. Awake alert and oriented 3. requiring oxygen at a 2 L via nasal cannula. pleural fluid cultures showed no growth. No plans for chest tube placement. Pulmonary is on board. laboratory data showed sodium 139, potassium 3.9, chloride 95, BUN 96.5 and creatinine 3.1. Nephrology and pulmonology is on board. 04/09/2023 Patient is sitting in the chair. Awake alert and oriented 3. Requiring 2 L oxygen with nasal cannula. Patient does have home oxygen. Patient has been afebrile. Able to tolerate oral diet. Pleural fluid culture is negative. Cytology is negative for malignancy.. Repeat chest x-ray was ordered for tomorrow. No plan for chest tube placement at this time. Pulmonary is on board. No new laboratory data today. 04/11. Patient seen and examined. Repeat chest x-ray done showed pneumothorax moderate to large left, currently not in respiratory distress. Denies any blood in the stools 04/12. Patient seen and examined. Labs done this morning showed WBC 6.5, hemoglobin 7.6, platelet count 186, sodium 130, potassium 4.8, BUN 122, creatinine 3.9. FOBT was positive, surgery was consulted, they recommended doing EGD which is scheduled for tomorrow morning. N.p.o. at midnight 04/13. Patient seen and examined. Patient went for EGD this morning which s howed Squamocolumnar junction 41 cm from the incisors,Diaphragmatic hiatus at 41 cm,LA grade B erosive esophagitis,Acute gastritis with bleeding. 04/14. Patient seen examined. Patient had left-sided Thora vent placed. Shortness of breath has improved. Denies any nausea or vomiting. 04/15/2023 Patient is seen and evaluated in follow-up this morning continues on 3 L via nasal cannula currently weaning FiO2 as tolerated. Patient being followed by pulmonary recommending follow-up chest x-ray to monitor left-sided pneumothorax. Patient continues with left Thora vent and pulmonary discussing possibly removing the chest tube. Patient also being followed by cardiology as well as nephrology with CHF exacerbation along with acute on chronic kidney disease exacerbation. Patient has had prolonged hospitalization and generalized weakness and patient reports will be returning home and has support at the home and will continue with rehab in the outpatient setting. Patient is adamant he is going home once discharged. Hemoglobin is stable above 7 at 7.2 today white count remains normal, sodium is 134 with a potassium of 5.4, BUN is 131 and creatinine is 4.4, LFTs slightly trending down and C. difficile testing from yesterday was negative. Patient continues on oral Lasix. Potassium slightly elevated today and was given a dose of Lokelma. Will follow-up on repeat labs. Patient was continued on scheduled lactulose per surgery recommendations and will make as needed as patient is reporting having loose stools. 04/16/2023 Patient is seen in follow-up today status post chest x-ray today that showed a trace pneumothorax on the left and patient is scheduled to have the thoracotomy tube removed. Hemoglobin this morning slightly low at 6.7 and will transfuse 1 unit of PRBCs and follow-up on repeat labs later this afternoon. Patient continues on 3 L via nasal cannula reporting continued shortness of breath although no worse. Kidney functions continue with an elevated BUN of 138 and creatinine is 4.5. Nephrology is following. Potassium remains elevated and is status post a dose of Lokelma and patient has been given DDAVP today. Will follow-up with repeat labs. Encouraged increase activity as tolerated recommend PT/OT therapy evaluation. General surgery following as well with plans of endoscopic intervention including EGD and colonoscopy once more stable. Possibl y Thursday. Anticoagulation remains on hold. 04/17/2023 Patient is seen in follow-up today with multiple medical consultations following. Patient had chest tube removed maintained on 3 L reports tolerating well with no worsening shortness of breath. Kidney functions continue to worsen with nephrology following recommending renal replacement. Vascular surgery consulted for dialysis cath placement. Patient is afebrile with no reported chest pain or palpitations noted. General surgery also following with plans on colonoscopy on Thursday. Hemoglobin is stable currently. Will follow-up with repeat labs and continue to monitor closely. Given significant comorbidities, prognosis is guarded. 3-2 24 Patient is currently lying in the bed. Awake alert and oriented x 3. Patient states that he has difficulty breathing and tightness in the chest. Currently requiring oxygen at 2 L via nasal cannula. Otherwise patient was found to be hyperkalemic potassium 5.9. Patient was placed on femoral catheter and was started on hemodialysis today. Denies any nausea or vomiting. Tolerating oral diet. No headache or dizziness or lightheadedness. Hemoglobin was 7.9 this morning. Laboratory data showed sodium 135 potassium 5.9 chloride 90 bicarb is 26.2 anion gap 18.8, BUN 153 and creatinine 5.2 and GFR 10 calcium 9.1. 04/19/2023 Patient is lying in the bed. Awake alert and oriented x 3. Patient did tolerate hemodialysis yesterday. Hemodialysis will be tomorrow. Currently requiring 2 L oxygen via nasal cannula. Afebrile. No cough or sputum production. Patient states that he feels better. No nausea or vomiting. Tolerating oral diet. Laboratory work showed WBC 7.2 hemoglobin 8.5 and platelets 194 Sodium 133 potassium 5.2 chloride 96 bicarb is 28 BUN 110 and creatinine 3.7 creatinine phosphorus 4.7. Nephrology and pulmonary is on board. 04/20/2023 Patient is seen and evaluated in follow-up today currently receiving hemodialysis maintained on 2 to 3 L via nasal cannula. General surgery also following working on EGD with concerns of dysphagia postdialysis. Patient is currently n.p.o. and anticoagulation remains on hold. Stable hemoglobin of 8.2 today and will discuss further with surgery regarding anticoagulation after surgical report. Patient is currently afebrile with no reports of chest pain or shortness of breath. Patient tolerating diet with no reported nausea or vo miting. Patient is tolerating hemodialysis that was just started this week. Patient reports he continues to want to go home and case management following working on arranging possible outpatient hemodialysis as well as home care. 04/21/2023 Patient is seen in follow-up today with vascular surgery following scheduled to have permacath placed for outpatient hemodialysis. Patient is maintained on dialysis along with multiple other consultations following including pulmonary. Patient underwent EGD with dilatation showing severe esophageal stenosis. Patient tolerating diet and denies any issues with swallowing at this time. Patient hemoglobin is stable at 8.3 with no active bleeding noted. Discussed with general surgery regarding resuming anticoagulation and will hold for today as patient is scheduled to receive permacath placement. Likely okay for resuming anticoagulation tomorrow. Patient is currently afebrile with no reports of chest pain or worsening shortness of breath. Patient is extremely anxious and wants to go home but is also significantly weak and would benefit from ECF. Patient is adamant he is going home and has home care. Case management following and will have PT/OT reevaluate the patient with recommendations. 04/23/2023 Patient is seen in follow-up today is status post permacath placement and arranging for outpatient dialysis although unavailable until Thursday morning. Patient is unable to start hemodialysis on Thursday. Attempted to call dialysis center for sooner times although no time available. Discussed with nephrology and recommending continuing and possibly holding until Thursday for short session and then discharge so patient can initiate outpatient hemodialysis on Thursday. Patient followed by general surgery as well status post EGD with colonoscopy with no active bleeding noted currently and hemoglobin is stable and will resume Eliquis and monitor. Patient is afebrile with no reported chest pain or shortness of breath. Patient reports to feeling improved and continues to request when he can go home. Patient is extremely weak and extremely high risk for readmission and significant falls as patient has had prolonged hospitaliza tion and would benefit from rehab although patient is adamant he is going home and is refusing rehab. Current medications reviewed. REVIEW OF SYSTEMS: CONSTITUTIONAL: No fever, no malaise,. CARDIOVASCULAR: No chest pain, no palpitations, no syncope. PULMONARY: As mentioned above GASTROINTESTINAL: Reports of diarrhea that is improved, no nausea, no vomiting, no abdominal pain. Reports tolerating diet with no problem NEUROLOGICAL: No headaches, no weakness, PHYSICAL EXAMINATION: GENERAL: The patient is alert and oriented x3, Well developed, well nourished. Elderly appearing, ill-appearing, thin built HEENT: Pupils are round and equally reacting to light. EOMI. No scleral icterus. No conjunctival pallor. Normocephalic, atraumatic. No pharyngeal erythema. No thyromegaly. CARDIOVASCULAR: S1 and S2 muffled PULMONARY: Coarse breath sound bilaterally, diminished at the bases ABDOMEN: Soft, nontender, nondistended, normoactive bowel sounds. No palpable organomegaly. MUSCULOSKELETAL: No joint swelling or deformity. EXTREMITIES: No cyanosis, clubbing, or pedal edema. NEUROLOGICAL: Gross neurological examination did not reveal any focal deficits. Diffusely weak SKIN: No rashes. Multiple bruises noted on upper and lower extremities Assessment: Hyperkalemia secondary to OMA and metabolic acidosis. Improved postdialysis Acute on chronic kidney disease with worsening kidney functions. Patient was initiated on hemodialysis on 04/18/2023. Acute hypoxic respiratory failure secondary to CHF exacerbation as well as large left sided pleural effusion and small right, status post left-sided thoracentesis x 2 recently and repeat 1 done on 04/11/2023 with approximately 1.2 L removed Moderate left-sided pneumothorax postprocedure status post Thora vent placement, Thora vent removed on 04/16/2023 Acute on chronic systolic congestive heart failure exacerbation, EF is 30 to 35% Acute on chronic gastritis with bleeding noted on EGD. 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 Status post EGD on 04/20/2023 with findings of dysphagia, hypertensive upper esophageal sphincter with dysmotility status post dilatation Anemia, likely chronic, transfuse if 7 or less History of moderate to severe aortic stenosis paroxysmal A-fib, currently rate controlled COPD, acute exacerbation Lactic acidosis, resolved Bilateral pleural effusion status post thoracentesis x 2 this admission GI prophylaxis DVT prophylaxis, Eliquis being resumed 04/24/2023 Full code Plan: Patient was started on hemodialysis on 04/18/2023. Vascular surgery has placed a right permacath placed on the chest wall and case management following making arrangements for outpatient dialysis. Unable to initiate dialysis until April 28, 2023 as patient cannot start dialysis outpatient on a Thursday. Plan is for continued dialysis here and possible light session on Thursday and discharge per nephrology so patient can initiate Thursday morning Case management following arranging for Home care outpatient as patient is adamant he is going home on discharge. Will have PT/OT therapy revaluate the patient again as patient is significantly weak and has had prolonged hospitalization and will definitely need ECF although patient is adamant he is not going to rehab. Patient is extremely high risk for readmission and falls General surgery following status post EGD showing dysphagia with dysmotility s tatus post dilatation and reports to feeling improved and tolerating diet Patient was continued with Thora vent and was removed on 04/16/2023. Patient continues on 2 L via nasal cannula recommend to wean FiO2 as tolerated Follow-up on repeat labs in the a.m. and monitor kidney functions along with e lectrolytes. Replace electrolytes per protocol. Recommend PT/OT therapy daily as patient reports he is returning home and has had significantly increased weakness with prolonged hospitalization. Continue with PPI. Due to multiple complex medical issues, prognosis is guarded The impression and plan of care has been dictated by Tania Reynoso, Nurse Practitioner as directed. Dr. Suresh MD I have performed a history and examination and MDM of this patient, discussed the same with the dictator, and agree with the dictator's assessment and plan as written ,documented as a scribe. Based on total visit time, I have performed more than 50% of the visit. Objective - Vital Signs Vital signs: Vital Signs Temp 98.1 F 04/23/23 13:16 Pulse 75 04/23/23 13:16 Resp 16 04/23/23 13:16 BP 101/51 04/23/23 13:16 Pulse Ox 93 L 04/23/23 13:16 FiO2 Intake & Output 04/22/23 04/23/23 04/23/23 18:59 06:59 18:59 Output Total 200 75 Balance -200 -75 Weight 81 kg Output: Urine 200 75 Other: Voiding Method Indwelling Catheter Indwelling Catheter Indwelling Catheter - Labs CBC & Chem 7: 04/22/23 05:42 04/22/23 05:42
[2023-04-24] MEDS: APIXABAN 2.5 MG TABLET PO SCH (09:10)
[2023-04-24 11:29] LABS: Basophils # (A) 0.03 X 10*3/uL (0.00-0.10); Basophils % (A) 0.4 %; Eosinophils # (A) 0.53 X 10*3/uL (0.04-0.35); Eosinophils % (A) 7.7 %; HCT 25.4 % (39.6-50.0); HGB 7.9 g/dL (13.0-17.0); Lymphocytes # (A) 1.22 X 10*3/uL (0.90-5.00); Lymphocytes % (A) 17.7 %; MCH 30.4 pg (27.0-32.0); MCHC 31.1 g/dL (32.0-37.0); MCV 97.7 FL (80.0-97.0); Mean Platelet Volume 11.7 FL (9.5-12.2); Monocytes # (A) 0.96 X 10*3/uL (0.20-1.00); Monocytes % (A) 13.9 %; NRBC Per 100 WBC 0 X 10*3/uL (0.00-0.01); Neutrophils # (A) 4.13 X 10*3/uL (1.80-7.70); Neutrophils % (A) 59.7 %; Platelet Count 169 X 10*3/uL (140-440); RDW 15.3 % (11.5-14.5); WBC 6.91 X 10*3/uL (4.50-10.00)
[2023-04-24 11:36] LABS: BUN/Creat Ratio 15.67 Ratio (12.00-20.00); Blood Urea Nitrogen 51.7 mg/dL (9.0-27.0); Calcium 8.4 mg/dL (8.7-10.3); Carbon Dioxide 28.4 mmol/L (21.6-31.8); Chloride 97 mmol/L (96-109); Glucose 87 mg/dL (70-110); Potassium 4.5 mmol/L (3.5-5.5); Sodium 134 mmol/L (135-145)
--- NOTE | 2023-04-24 13:36 | P.PN ---
Subjective Progress Note Date: 04/24/23 I am seeing this patient in consultation today 04/02/2023 for dyspnea and left- sided pleural effusion. He is currently in the emergency room. He was transferred from [facility] late last night for severe hyperkalemia and acute kidney injury. Patient is a 87-year-old white male with past medical history significant for chronic kidney disease, congestive heart failure, atrial fibrillation anticoagulated on Eliquis, hyperlipidemia, COPD, and BPH. Patient is technically a poor historian. Apparently, he is complaining of shortness of breath, weakness and sore throat over the last several days. This progressively worsened, and he went into [facility] to be evaluated. Patient was found to be severely hyperkalemic. He was also found to be anemic and was transfused 1 unit PRBC. He was transferred to [facility]. Patient is currently resting in bed, on 2 L/min nasal cannula, in no acute distress. He is weak and cannot sit up in bed without assistance. Becomes short of breath with any kind of activity. He denies any chest pain, heart palpitations, or syncopal events. He does have bilateral lower extremity swelling. He has an occasional nonproductive cough. Denies any sputum production, fevers. Chest x-ray on arrival shows cardiomegaly, pulmonary vascu lar congestion, and interstitial edema. There is a moderate to large left-sided pleural effusion and small right pleural effusion.. Patient was given 60 mg of IV Lasix. A Riley catheter was inserted, and the patient has approximately 800 mL of concentrated urine. Patient states that earlier in the week he has had troubles urinating. He voids about 2-3 times per day. Endorses dysuria. Denies any hematuria, urinary frequency. Urinalysis on arrival not concerning for UTI. Trace protein. He does have baseline chronic kidney disease. Ultrasound of the abdomen and bladder did not show any hydronephrosis. Potassium level on arrival was elevated at 8.4 and is down to 5 point 3:06 amp sodium bicarb, 10 g Lokelma, 10 units insulin, 2 A D50 W, calcium gluconate, and the above-mentioned Lasix. Nephrology has been consulted. There is D5W with 3 amp sodium bicarb infusing at 50 MLS per hour. BMP on arrival has a sodium 138, testing 8.4, chloride 108, serum bicarb 18, BUN 74, creatinine 3.68, and glucose 85. Lactic acid level was 3.8 on arrival and is down to 1.6. Troponin less daniel n 0.012. NT proBNP 57,800. ECG shows normal sinus rhythm with chronic left bundle branch block without any obvious hyperkalemic changes. CBC on arrival: WBC count 8.4, hemoglobin 10.7, hematocrit 34, platelets 121. Group A strep negative. No signs of bleeding. Patient has chronic anemia. Patient denies any acute blood loss. No bloody bowel movements, melena, hematemesis. No abdominal pain or diarrhea. Vital signs are stable. The patient is seen today April 03, 2023 in follow-up in the emergency department. He is currently sitting up on the stretcher. Awake and alert in no acute distress. He is breathing a bit easier today compared to yesterday. He states he is about 50% better. He is still somewhat bronchospastic and wheezing. White count 8.6. Hemoglobin 8.1. Platelets 127. Sodium 139. Potassium 5.0. BUN 89. Creatinine 4.02. Glucose 118. He is continued on IV diuretics. Anticoagulated with Eliquis. Continued on bronchodilators. Currently in a -1.2 L balance. Making good urine. The patient is seen today April 04, 2023 in follow-up on the regular medical floor. He is awake and alert in no acute distress. Resting fairly comfortably in bed. Denies any worsening shortness of breath, cough or congestion. He is maintaining O2 saturation in the 90s on 2 L/min per nasal cannula. Chest x-ray does reveal increasing left pleural effusion and a right-sided pleural effusion. Echocardiogram confirms a right-sided pleural effusion measuring 11.9 cm, left- sided pleural effusion at 10.8 cm. The patient is currently on Eliquis this will be placed on hold for possible left-sided thoracentesis tomorrow. Count 9.0. Hemoglobin 7.8. Platelets 140. Sodium 140. Potassium 4.8. Bicarb 28. BUN 87. Creatinine 4.1. Glucose 88. He remains on Lasix 60 mg IV twice a day. Currently net -1.5 L balance The patient is seen today April 05, 2023 in follow-up on the regular medical floor. He is currently sitting up in bed. Awake and alert in no acute distress. He is maintaining O2 saturations in the 90s 2 L/min per nasal cannula. He is been afebrile. Hemodynamically stable. He did undergo a left- sided thoracentesis today with 1.4 L of straw-colored fluid removed. Fluid sent for analysis and cytology. Follow-up chest x-ray reveals a tiny left apical pneumothorax. Sodium 137. Potassium 4.1. Bicarb 31. BUN 97. Creatinine 3.86. Glucose 101. Remains on IV diuretics. Currently in a -2.8 L balance. The patient is seen today April 06, 2023 in follow-up on the regular medical floor. He is awake and alert no acute distress. He is resting comfortably in bed. He is maintaining good O2 saturations in the 90s on 2 L/min per nasal cannula. He remains on IV diuretics. Currently net -2.7 L balance. He is status post left-sided thoracentesis yesterday with 1.4 L of straw-colored fluid removed. Cytology pending. Fluid analysis transudate with a total protein of 2.6 and an LDH of 80. Today's chest x-ray shows small bilateral effusions. No evidence of pneumothorax. Count 8.7. Hemoglobin 7.7. Platelets 139. Sodium 1 39. Potassium 4.2. Bicarb 29. BUN 91. Creatinine 4.0. The patient is seen today April 07, 2023 in follow-up on the regular medical floor. He is resting comfortably in bed. Awake and alert in no acute distress. Maintaining O2 saturations in the 90s on 2 L/min per nasal cannula. He is cont inued on bronchodilators and oral diuretics. Currently net -1.2 L balance. Follow-up chest x-ray revealed creasing consolidation and pleural effusion on the left. Likely represents a hydropneumothorax of approximately 5 to 10% pneumothorax noted. No significant change. The patient is seen today April 08, 2023 in follow-up on the regular medical floor. He is awake and alert in no acute distress. Maintaining O2 saturations in the 90s on 2 L/min per nasal cannula. Laying in bed. CT scan of the chest revealed moderate-sized bilateral pleural effusions. Left effusion appears loculated and there is additionally a left anterior pneumothorax at approximately 15 to 20%. Consolidation and partial collapse of the left lung. Atelectasis in the right posterior lung. Pleural fluid cultures revealed no growth, no malignancy. No plans for chest tube placement. Eliquis has been resumed. White count 8.5. Hemoglobin 7.7. Platelets 146. Sodium 139. Potassium 3.9. Bicarb 29. BUN 96. Creatinine 3.9. The patient is seen today April 09, 2023 in follow-up on the regular medical floor. He is resting comfortably in bed. Awake and alert in no acute distress. Maintaining O2 saturations in the 90s on 2 L/min per nasal cannula. He denies any worsening shortness of breath, cough or congestion. No new labs today. No chest x-ray today. He is anticoagulated with Eliquis. The patient is seen today April 10, 2023 in follow-up on the regular medical floor. He is awake and alert in no acute distress. Resting fairly comfortably in bed. Today's chest x-ray shows reaccumulation of fluid in the left chest. He is currently on DuoNeb inhalation, Pulmicort inhalations. Remains on oral diuretics. No new labs today. Pleural fluid cultures revealed no growth. He is anticoagulated with Eliquis. The patient is seen today April 11, 2023 in follow-up on the regular medical floor. He is sitting up in bed. Awake and alert in no acute distress. Maintaining O2 saturations in the 90s on 2 L/min per nasal cannula. Sodium 134. Potassium 4.5. Bicarb 30. BUN 130. Creatinine 3.55. Glucose 88. Ultrasound of the chest did reveal a significant left-sided pleural effusion. He under went a second thoracentesis today with 1.2 L of dark yellow fluid removed. Unfortunately, follow-up chest x-ray does reveal a moderate to large left pneumothorax. The patient remains asymptomatic. Repeat chest x-ray pending. He remains on bronchodilators. Remains on oral diuretics. Plan a -1.1 L balance. The patient is seen today April 12, 2023 in follow-up on the regular medical floor. He is awake and alert in no acute distress. Maintaining O2 saturations in the 90s on 2 L/min per nasal cannula. He denies any worsening shortness of breath, cough or congestion. Denies any chest pain. Follow-up chest x-ray continues to show a left apical hydropneumothorax. Slight improvement today compared to yesterday. Pleural fluid cultures revealed no growth. White count 6.5. Hemoglobin 7.6. Platelets 186. Stool for occult blood was positive. He is continued on bronchodilators. Continued on diuretics. Currently in a -700 mL balance. On today's evaluation of 04/13/2023, the patient is being seen for a follow-up. Noted the patient has an acute hypoxic respiratory failure due to CHF and bilateral pleural effusion. Noted the patient had a large left-sided pleural effusion and a small right-sided pleural effusion. His proBNP level was elevated. He underwent a left thoracentesis on 04/05/2023 with a total of 1.4 L of fluid removed that was transudative. Subsequent CAT scan of the chest showed a 15 to 20% pneumothorax. Chest x-ray on 04/10/2023 showed significant recommendation of the left-sided pleural effusion and at the same time there was a persistent pneumothorax on the left. The patient underwent another thoracentesis on 04/11/2023 with a total of 1.2 L of fluid was removed. I reviewed the chest x-ray from today and there is a large stable left-sided hydropneumothorax. Based on that, I inserted the Thora vent in this patient and immediately around 600 cc of pleural fluid was drained in addition to air. The follow-up chest x-ray that was done showed decrease in the left-sided pneumothorax and the thoracostomy tube is in place and attached to suction with persistent air leak. The patient remains clinically and hemodynamically stable on 2 L of oxygen by nasal cannula with a pulse ox of 98%. The patient remains on [facility], on p.o. Lasix 40 mg twice a day. The patient is also on metoprolol 12.5 mg p.o. daily. His echocardiogram that was done on 04/02/2023 showed a left-ventricular ejection fraction of around 30 to 35% along with biatrial enlargement and moderate MR and moderate aortic stenosis/severe aortic stenosis. Moderate degree of tricuspid regurgitation was also present. On today's evaluation of 04/14/2023, I am seeing the patient for a follow- up.Patient has no specific complaints. The Thora vent is still in place and attached to suction. The total amount of output in terms of fluid from the left lung was in the order of 800 cc from yesterday. There is no persistent air leak. I am ordering a urgent chest x-ray to follow-up on the pneumothorax. Otherwise, the patient has no specific complaints. The patient is still on Lasix 40 mg p.o. twice a day. Rest of the medications are essentially unchan ged. Labs from today shows a sodium level of 135, potassium of 5.2, BUN is 124 with a creatinine of 4.1 and a potassium level is at 5.2. Echocardiogram is showing impaired LV function with an ejection fraction of 35% with moderate MR, severe aortic stenosis and bilateral atrial enlargement. The patient is having some fecal occult blood positive and the patient was taken off anticoagulation for now. EGD EGD that was done on 04/13/2023 showed erosive esophagitis and gastritis. On today's evaluation of 04/15/2023, the patient is able to sit up in a chair. He is calm and comfortable. The output from the left sided Thora vent has improved and the fluid output has dropped significantly over the past 24 hours. Repeat chest x-ray was done and the patient continues to have a very trace left apical pneumothorax. There is also some limited subcutaneous emphysema. Overall, the patient is doing well. No significant respiratory distress and the patient was transitioned to room air oxygen with a pulse ox of 94%. The patient is currently on Lasix 40 mg p.o. twice a day. He is on DuoNeb nebulized treatments [id number]. Renal function is being monitored. BUN is at 131 with a creatinine of 4.4 and sodium levels at 134. The WBC count of 8.4 with a hemoglobin of 7.2. Note that the total vent is still faster suction. There is no evidence of any air leak. Suction is being applied in regards to his left- sided pleural effusion which seems to be adequately drained at this point in time. On today's evaluation of 04/16/2023, the patient is being seen for a follow-up. He is doing well. No specific complaints. I repeated the chest x-ray earlier this morning and there was no evidence of any pneumothorax. No evidence of any air leak and I took the opportunity to remove the Thora vent from his left lung. He remained stable and the patient is currently on 2 L of oxygen by nasal cannula with a pulse ox of 96%. Denies having any specific complaints. He has chronic kidney disease and the patient is being monitored by nephrology. Hemoglobin today is at 6.78 the patient does not have any acute signs of GI bleeding. The patient had also a potassium level of 5.4. The patient was seen by nephrology and the patient will be given another dose of Lokelma 10 g and the patient is still maintained on Lasix 40 mg p.o. twice a day. Bronchodilators still being given in the form of DuoNeb nebulized treatments [id number] 4 times a day. The patient is on Aranesp. The patient is also scheduled to receive unit of packed RBC today. On today's evaluation of 04/17/2023, the patient respite status is stable and the patient is currently on 3 L O2 nasal cannula With a pulse ox of 97%. A repeat chest x-ray was done today and shows no evidence of any pneumothorax. The pat ient has developed a small left-sided pleural effusion. Otherwise, the patient is stable. Hemoglobin is at 7.9 with a white cell count of 7. Sodium level is at 132 with a potassium level of 5.8. The BUN is up to 143 with a creatinine of 5.0 as the patient has an acute on top of chronic kidney failure. His creatinine has been steadily on the rise. Nephrology on the case for now. Patient remains on Lasix 40 mg p.o. twice a day. On today's evaluation of 04/18/2023, respiratory status is stable and the patient has no respiratory difficulties. Nevertheless, there has been progressive worse quinn renal function and on today's evaluation his sodium level is at 135 with a potassium level of 5.9. The BUN is up to 153 with a creatinine of 5.2. Nephrology on the case and the patient was given a temporary dialysis catheter and the patient was started on hemodialysis for an acute on top of chronic kidney disease. He was started on hemodialysis today on 04/18/2023. He has a right femoral temporary dialysis catheter in place. He is feeling well. No other major respiratory difficulties. Any hemodynamic instability. 04/19/2023, the patient has no specific complaints. The patient was started on hemodialysis on 04/18/2023. He tolerated dialysis well with a total of 900 cc of ultrafiltration. He is resting comfortably in bed. No dialysis for today and this will be done tomorrow on 04/20/2023. No respiratory difficulties and he remains on 2 L of oxygen by nasal cannula. No cough or sputum production. No altered mentation. Potassium level today is at 5.2 with a BUN of 110 and a cre atinine of 3.7. WBC count 7.2 with a hemoglobin of 8.5. The patient is seen today April 20, 2023 in follow-up on the regular medical floor. He is currently sitting up in bed. Awake and alert in no acute distress. He is maintaining O2 saturations in the upper 90s on 2 L/min per nasal cannula. Afebrile. Hemodynamically stable. Currently receiving hemodialysis. The plan is for colonoscopy today as well. He is status post 1 unit of packed red blood cells this admission. Hemoglobin currently 8.2. Platelets 206. White count 7.1. Sodium 133. Potassium 4.8. Bicarb 29. BUN 112. Creatinine 4.19. He remains on remains on oral diuretics. The patient is seen today April 21, 2023 in follow-up on the regular medical floor. He is awake and alert in no acute distress. Resting comfortably in bed. Denies any worsening shortness of breath, cough or congestion. He is maintaining O2 saturation in the 90s on 3 L/min per nasal cannula. He is having some complaints of a sore throat. He did undergo EGD yesterday that revealed esophageal stricture and had undergone esophageal dilatation. Colonoscopy revealed severe sigmoid diverticulosis. White count 6.1. Hemoglobin 8.3. Platelets 182. Sodium 137. Potassium 4.4. Bicarb 27. BUN 62. Creatinine 3.5. Glucose 84. Plan is for repeat dialysis tomorrow. The patient is seen today April 22, 2023 in follow-up on the regular medical floor. He is currently resting comfortably in bed. Awake and alert in no acute distress. Undergoing hemodialysis today. He is maintaining good O2 saturations in the upper 90s on 3 L/min per nasal cannula. He is afebrile. Hemodynamically stable. Follow-up chest x-ray does reveal cardiomegaly and some pulmonary vascular congestion with bilateral effusions. He is status post 1 unit of packe d red blood cells this admission. Current hemoglobin 8.4. Platelets 201. White count 6.8. Sodium 136. Potassium 4.2. Bicarb 27. BUN 67. Creatinine 3.8. He is continued on oral diuretics. The patient is seen today April 23, 2023 in follow-up on the regular medical floor. He is awake and alert in no acute distress. Resting in bed. Maintaining O2 saturations in the 90s on 3 L/min per nasal cannula. He remains on hemodialysis receiving it today on his Thursday schedule. No new labs today. The patient is seen today April 24, 2023 in follow-up on the regular medical fl oor. He is resting comfortably in bed. Awake and alert in no acute distress. Continues to maintain good O2 saturations in the upper 90s on 3 L/min per nasal cannula. He is afebrile. Hemodynamically stable. White count 6.9. Hemoglobin 7.9. Platelets 169. Sodium 134. Potassium 4.5. Bicarb 28. BUN 52. Creatinine 3.3. He is continued on oral diuretics. Anticoagulated with Eliquis. Remains on bronchodilators. Objective - Vital Signs Vital signs: Vital Signs Temp 98.2 F 04/24/23 06:50 Pulse 68 04/24/23 09:53 Resp 18 04/24/23 06:50 BP 118/55 04/24/23 06:50 Pulse Ox 98 04/24/23 06:50 FiO2 Intake & Output 04/23/23 04/24/23 04/24/23 18:59 06:59 18:59 Intake Total 240 Output Total 75 100 Balance -75 140 Weight 81 kg 75.5 kg Intake: Oral 240 Output: Urine 75 100 Other: Voiding Method Indwelling Catheter Indwelling Catheter Indwelling Catheter - Exam GENERAL EXAM: Alert, pleasant, hard of hearing, 87-year-old male, on 3 L nasal cannula, in no apparent distress. HEAD: Normocephalic and atraumatic EYES: Normal reaction of pupils, equal size. NOSE: Clear with pink turbinates. THROAT: Mild erythema, no exudates NECK: No masses, no JVD. Right IJ hemodialysis catheter in place CHEST: No chest wall deformity. LUNGS: Equal air entry with right basilar inspiratory crackles. Diminished in the left lung base. CVS: S1 and S2 normal with no audible murmur, regular rhythm. No extra heart sounds ABDOMEN: No hepatosplenomegaly, active bowel sounds, no guarding or rigidity. SPINE: No scoliosis or deformity SKIN: No rashes CENTRAL NERVOUS SYSTEM: No focal deficits, tone is normal in all 4 extremities. EXTREMITIES: There is moderate bilateral lower extremity nonpitting edema. Peripheral pulses are intact. - Labs CBC & Chem 7: 04/24/23 06:53 04/24/23 06:53 Labs: Abnormal Lab Results - Last 24 Hours (Table) 04/24/23 04/24/23 Range/Units 06:53 06:53 RBC 2.60 L (4.40-5.60) X 10*6/uL Hgb 7.9 L (13.0-17.0) g/dL Hct 25.4 L (39.6-50.0) % MCV 97.7 H (80.0-97.0) FL MCHC 31.1 L (32.0-37.0) g/dL RDW 15.3 H (11.5-14.5) % Eosinophils # 0.53 H (0.04-0.35) X 10*3/uL Sodium 134 L (135-145) mmol/L BUN 51.7 H (9.0-27.0) mg/dL Creatinine 3.3 H (0.6-1.5) mg/dL Est GFR (CKD-EPI) 17 L (>=60) Calcium 8.4 L (8.7-10.3) mg/dL Assessment and Plan Assessment: Acute hypoxemic respiratory failure, secondary to acute systolic CHF exacerbation and fluid overload. Chest x-ray shows cardiomegaly, pulmonary vascular congestion, and interstitial edema. Patient also has moderate to large left-sided pleural effusion and a small right pleural effusion. NT proBNP was elevated at 57,800. Status post left-sided thoracentesis April 05, 2023 with 1.4 L of straw-colored fluid removed. Fluid analysis transudate, cytology for malignancy. CT scan of the chest and follow-up chest x-ray reveals stable hydropneumothorax of approximately 15 to 20%. Chest x-ray April 10, 2023 shows significant reaccumulation of fluid in the left chest. Ultrasound reveals a recurrent left pleural effusion measuring 10.4 cm. A second thoracentesis was performed April 11, 2023 with 1.2 L of fluid removed. Moderate left-sided pneumothorax post procedure, Thora vent placed and subsequently removed 04/16/2023 Systolic heart failure with ejection fraction of 30 to 35% Moderate to severe aortic stenosis Moderate mitral regurgitation Acute on chronic kidney disease, creatinine was on the rise, started on hemodialysis Severe hyperkalemia, improved post hemodialysis Lactic acidosis, improved Chronic obstructive pulmonary disease, stable History of paroxysmal atrial fibrillation, anticoagulated on Eliquis, currently normal sinus Benign prostatic hyperplasia Anemia of chronic disease, patient reportedly received 1 unit PRBC at [facility] and a second unit here Erosive esophagitis and gastritis. EGD from 04/20/2023 revealed esophageal stricture and is status post dilatation Severe diverticulosis noted on colonoscopy 04/20/2023 Plan: The patient was seen and evaluated Medications and reviewed Continued on diuretics Discharge planning in place Scheduled to have hemodialysis at [facility] starting 04/28/2023 I have personally seen and examined the patient, performed the documentation and the assessment and plan as written. Number of minutes spent on the visit: 10.
--- NOTE | 2023-04-24 13:52 | P.PN ---
Subjective Progress Note Date: 04/24/23 CHIEF COMPLAINT: Anemia HISTORY OF PRESENT ILLNESS: Patient presented with anemia and GI bleed. Patient status post EGD and colonoscopy. Colonoscopy reported diverticulosis and internal hemorrhoids. EGD had reported hypertensive upper esophageal sphincter status post EGD with dilation. Patient currently on regular diet. Patient reports the throat soreness is pretty much gone. Denies any nausea or vomiting. No blood in the stools. Patient denies any abdominal pain. Hemoglobin 7.9 PHYSICAL EXAM: VITAL SIGNS: Reviewed GENERAL: Well-developed in no acute distress. HEENT: No sclera icterus. Extraocular movements grossly intact. Moist buccal mucosa. Head is atraumatic, normocephalic. Hears conversational speech. No nasal drainage. NECK: Supple without lymphadenopathy. CHEST: Non-labored respirations and equal bilateral excursions. CARDIOVASCULAR: Palpable 2+ radial pulses. ABDOMEN: Soft. Nondistended. Nontender. MUSCULOSKELETAL: No clubbing or cyanosis. NEUROLOGIC: No focal or lateralizing signs. Cranial nerves II through XII grossly intact. PSYCH: Appropriate affect. Alert and oriented to person, place and time. SKIN: Well perfused. Good skin turgor. ASSESSMENT: 1. Anemia status post EGD with acute gastritis with bleeding and erosive esophagitis. Status post colonoscopy with diverticulosis and internal hemorrhoids 2. Left pneumothorax status post left-sided Thora vent and removal 3. History of left pleural effusion status post left-sided thoracentesis 4. Acute on chronic kidney disease 5. Atrial fibrillation 6. Severe aortic stenosis 7. Dysphagia 8. 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 Please call with any questions or concerns Physician Vp Of [employer] note has been reviewed by physician. Signing provider agrees with the documented findings, assessment, and plan of care. CHIEF COMPLAINT: GI bleed HISTORY OF PRESENT ILLNESS: The patient is a 87 year old male with dysphagia and anemia. He is status post upper endoscopy with dilation. Sore throat resolved. He is tolerating diet. REVIEW OF ORGAN SYSTEMS: No fevers or chills. No nausea or vomiting. No shortness of breath. PHYSICAL EXAM: VITALS: Reviewed CONSTITUTIONAL: Well developed and in no acute distress. EYES: Conjuctivae without sclera icterus. Extraocular movements grossly intact. HEAD, EARS, NOSE, THROAT: Moist buccal mucosa. Head is atraumatic, normocephalic. Hears conversational speech. No nasal drainage. RESPIRATORY: Non-labored respirations and equal bilateral excursions. No gross wheezes. CARDIOVASCULAR: Palpable 2+ radial pulses. ABDOMEN: No abdominal pain. MUSCULOSKELETAL: No clubbing cyanosis or edema SKIN: Warm and well perfused with good skin turgor. NEUROLOGIC: Cranial nerves II through XII grossly intact. No focal or lateralizing signs. PSYCH: Appropriate affect. Alert and oriented to person, place and time. CLINCAL LABS: Reviewed. Hemoglobin of 8.4 ASSESSMENT: 1. Anemia 2. GI bleed 3. Acute on chronic kidney failure 4. Atrial fibrillation 5. Ischemic cardiomyopathy 6. Chronic obstructive pulmonary disease 7. Pneumothorax 8. Dysphagia 9. Aortic stenosis PLAN: 1. He has slight decline in hemoglobin after restart of blood thinners. He is elevated risk for rebleed 2. No additional surgical invention at this time Objective - Vital Signs Vital signs: Vital Signs Temp 98.2 F 04/24/23 06:50 Pulse 68 04/24/23 09:53 Resp 18 04/24/23 06:50 BP 118/55 04/24/23 06:50 Pulse Ox 98 04/24/23 06:50 FiO2 Intake & Output 04/23/23 04/24/23 04/24/23 18:59 06:59 18:59 Intake Total 240 Output Total 75 100 Balance -75 140 Weight 81 kg 75.5 kg Intake: Oral 240 Output: Urine 75 100 Other: Voiding Method Indwelling Catheter Indwelling Catheter Indwelling Catheter - Labs CBC & Chem 7: 04/27/23 05:45 04/27/23 05:45 Labs: Abnormal Lab Results - Last 24 Hours (Table) 04/24/23 04/24/23 Range/Units 06:53 06:53 RBC 2.60 L (4.40-5.60) X 10*6/uL Hgb 7.9 L (13.0-17.0) g/dL Hct 25.4 L (39.6-50.0) % MCV 97.7 H (80.0-97.0) FL MCHC 31.1 L (32.0-37.0) g/dL RDW 15.3 H (11.5-14.5) % Eosinophils # 0.53 H (0.04-0.35) X 10*3/uL Sodium 134 L (135-145) mmol/L BUN 51.7 H (9.0-27.0) mg/dL Creatinine 3.3 H (0.6-1.5) mg/dL Est GFR (CKD-EPI) 17 L (>=60) Calcium 8.4 L (8.7-10.3) mg/dL
--- NOTE | 2023-04-24 15:05 | P.PN ---
Subjective Progress Note Date: 04/24/23 Patient is a 87-year-old white male with past medical history significant for chronic kidney disease, congestive heart failure, atrial fibrillation anticoagulated on Eliquis, hyperlipidemia, COPD, and BPH, who was transferred from [facility] for severe hyperkalemia and acute kidney injury. Patient has been complaining of shortness of breath and weakness for a few days. Patient also complaining of sore throat. Patient weakness and shortness of breath progressed so he eventually presented to [facility] where he was evaluated, patient was found to have elevated potassium levels of 8.4, patient was given hyperkalemia protocol and received sodium bicarb, Lokelma, insulin and dextrose. Chest x-ray done showed large left pleural effusion small right pleural effusion, patient was transferred to [facility]. Patient has been complaining of shortness of breath on exertion and rest. Denies any chest pain. There is complaint of swelling of lower extremities. Patient complaining of nonproductive cough. Denies any fevers or chills Patient admitted to internal medicine service 04/03. Patient seen and examined. 2D echo done showed LVEF of 35% with global hypokinesis, severe biatrial enlargement, moderate mitral regurg, severe aortic stenosis. 04/04. Patient seen and examined. States breathing is improving, still gets short of breath on exertion. 04/05. Patient seen and examined. Patient being planned for thoracentesis this morning with pulmonary medicine. States breathing is improved. Denies any nausea or vomiting 04/06. Patient seen and examined. States breathing has improved, feels much better after thoracentesis yesterday. Labs done this morning showed WBC 8.7, hemoglobin 7.7, platelet count 139, sodium 139, potassium 4.2, BUN 90, creatinine 4 04/07/2023 Patient is currently sitting up in the chair. Awake alert and oriented 3. Currently on 2 L oxygen via nasal cannula. Patient is being cannula on by mouth twice a day. Also on DuoNeb's and Pulmicort inhalation. No comments of nausea or vomiting. Tolerating oral diet. No bowel movement today. Laboratory data showed sodium 138 potassium 4.0 chloride 95 BUN 91.1 and creatinine 4.0 Patient is being followed by pulmonary and nephrology. Chest x-ray showed increasing consolidation and pleural effusion on the left. Likely represent a hydropneumothorax of approximately 5-10% pneumothorax noted. No significant interval change. 04/08/2023 Patient is currently sitting which it. Awake alert and oriented 3. requiring oxygen at a 2 L via nasal cannula. pleural fluid cultures showed no growth. No plans for chest tube placement. Pulmonary is on board. laboratory data showed sodium 139, potassium 3.9, chloride 95, BUN 96.5 and creatinine 3.1. Nephrology and pulmonology is on board. 04/09/2023 Patient is sitting in the chair. Awake alert and oriented 3. Requiring 2 L oxygen with nasal cannula. Patient does have home oxygen. Patient has been afebrile. Able to tolerate oral diet. Pleural fluid culture is negative. Cytology is negative for malignancy.. Repeat chest x-ray was ordered for tomorrow. No plan for chest tube placement at this time. Pulmonary is on board. No new laboratory data today. 04/11. Patient seen and examined. Repeat chest x-ray done showed pneumothorax moderate to large left, currently not in respiratory distress. Denies any blood in the stools 04/12. Patient seen and examined. Labs done this morning showed WBC 6.5, hemoglobin 7.6, platelet count 186, sodium 130, potassium 4.8, BUN 122, creatinine 3.9. FOBT was positive, surgery was consulted, they recommended doing EGD which is scheduled for tomorrow morning. N.p.o. at midnight 04/13. Patient seen and examined. Patient went for EGD this morning which s howed Squamocolumnar junction 41 cm from the incisors,Diaphragmatic hiatus at 41 cm,LA grade B erosive esophagitis,Acute gastritis with bleeding. 04/14. Patient seen examined. Patient had left-sided Thora vent placed. Shortness of breath has improved. Denies any nausea or vomiting. 04/15/2023 Patient is seen and evaluated in follow-up this morning continues on 3 L via nasal cannula currently weaning FiO2 as tolerated. Patient being followed by pulmonary recommending follow-up chest x-ray to monitor left-sided pneumothorax. Patient continues with left Thora vent and pulmonary discussing possibly removing the chest tube. Patient also being followed by cardiology as well as nephrology with CHF exacerbation along with acute on chronic kidney disease exacerbation. Patient has had prolonged hospitalization and generalized weakness and patient reports will be returning home and has support at the home and will continue with rehab in the outpatient setting. Patient is adamant he is going home once discharged. Hemoglobin is stable above 7 at 7.2 today white count remains normal, sodium is 134 with a potassium of 5.4, BUN is 131 and creatinine is 4.4, LFTs slightly trending down and C. difficile testing from yesterday was negative. Patient continues on oral Lasix. Potassium slightly elevated today and was given a dose of Lokelma. Will follow-up on repeat labs. Patient was continued on scheduled lactulose per surgery recommendations and will make as needed as patient is reporting having loose stools. 04/16/2023 Patient is seen in follow-up today status post chest x-ray today that showed a trace pneumothorax on the left and patient is scheduled to have the thoracotomy tube removed. Hemoglobin this morning slightly low at 6.7 and will transfuse 1 unit of PRBCs and follow-up on repeat labs later this afternoon. Patient continues on 3 L via nasal cannula reporting continued shortness of breath although no worse. Kidney functions continue with an elevated BUN of 138 and creatinine is 4.5. Nephrology is following. Potassium remains elevated and is status post a dose of Lokelma and patient has been given DDAVP today. Will follow-up with repeat labs. Encouraged increase activity as tolerated recommend PT/OT therapy evaluation. General surgery following as well with plans of endoscopic intervention including EGD and colonoscopy once more stable. Possibl y Thursday. Anticoagulation remains on hold. 04/17/2023 Patient is seen in follow-up today with multiple medical consultations following. Patient had chest tube removed maintained on 3 L reports tolerating well with no worsening shortness of breath. Kidney functions continue to worsen with nephrology following recommending renal replacement. Vascular surgery consulted for dialysis cath placement. Patient is afebrile with no reported chest pain or palpitations noted. General surgery also following with plans on colonoscopy on Thursday. Hemoglobin is stable currently. Will follow-up with repeat labs and continue to monitor closely. Given significant comorbidities, prognosis is guarded. 3-2 24 Patient is currently lying in the bed. Awake alert and oriented x 3. Patient states that he has difficulty breathing and tightness in the chest. Currently requiring oxygen at 2 L via nasal cannula. Otherwise patient was found to be hyperkalemic potassium 5.9. Patient was placed on femoral catheter and was started on hemodialysis today. Denies any nausea or vomiting. Tolerating oral diet. No headache or dizziness or lightheadedness. Hemoglobin was 7.9 this morning. Laboratory data showed sodium 135 potassium 5.9 chloride 90 bicarb is 26.2 anion gap 18.8, BUN 153 and creatinine 5.2 and GFR 10 calcium 9.1. 04/19/2023 Patient is lying in the bed. Awake alert and oriented x 3. Patient did tolerate hemodialysis yesterday. Hemodialysis will be tomorrow. Currently requiring 2 L oxygen via nasal cannula. Afebrile. No cough or sputum production. Patient states that he feels better. No nausea or vomiting. Tolerating oral diet. Laboratory work showed WBC 7.2 hemoglobin 8.5 and platelets 194 Sodium 133 potassium 5.2 chloride 96 bicarb is 28 BUN 110 and creatinine 3.7 creatinine phosphorus 4.7. Nephrology and pulmonary is on board. 04/20/2023 Patient is seen and evaluated in follow-up today currently receiving hemodialysis maintained on 2 to 3 L via nasal cannula. General surgery also following working on EGD with concerns of dysphagia postdialysis. Patient is currently n.p.o. and anticoagulation remains on hold. Stable hemoglobin of 8.2 today and will discuss further with surgery regarding anticoagulation after surgical report. Patient is currently afebrile with no reports of chest pain or shortness of breath. Patient tolerating diet with no reported nausea or vo miting. Patient is tolerating hemodialysis that was just started this week. Patient reports he continues to want to go home and case management following working on arranging possible outpatient hemodialysis as well as home care. 04/21/2023 Patient is seen in follow-up today with vascular surgery following scheduled to have permacath placed for outpatient hemodialysis. Patient is maintained on dialysis along with multiple other consultations following including pulmonary. Patient underwent EGD with dilatation showing severe esophageal stenosis. Patient tolerating diet and denies any issues with swallowing at this time. Patient hemoglobin is stable at 8.3 with no active bleeding noted. Discussed with general surgery regarding resuming anticoagulation and will hold for today as patient is scheduled to receive permacath placement. Likely okay for resuming anticoagulation tomorrow. Patient is currently afebrile with no reports of chest pain or worsening shortness of breath. Patient is extremely anxious and wants to go home but is also significantly weak and would benefit from ECF. Patient is adamant he is going home and has home care. Case management following and will have PT/OT reevaluate the patient with recommendations. 04/23/2023 Patient is seen in follow-up today is status post permacath placement and arranging for outpatient dialysis although unavailable until Thursday morning. Patient is unable to start hemodialysis on Thursday. Attempted to call dialysis center for sooner times although no time available. Discussed with nephrology and recommending continuing and possibly holding until Thursday for short session and then discharge so patient can initiate outpatient hemodialysis on Thursday. Patient followed by general surgery as well status post EGD with colonoscopy with no active bleeding noted currently and hemoglobin is stable and will resume Eliquis and monitor. Patient is afebrile with no reported chest pain or shortness of breath. Patient reports to feeling improved and continues to request when he can go home. Patient is extremely weak and extremely high risk for readmission and significant falls as patient has had prolonged hospitaliza tion and would benefit from rehab although patient is adamant he is going home and is refusing rehab. 04/24/2023 Patient is seen in follow-up today and is continued on hemodialysis with nephrology following. Multiple medical consultations following and has cleared the patient for discharge although patient unable to initiate hemodialysis on Thursday and patient is scheduled for dialysis starting Thursday in the outpatient setting. Patient continues with indwelling Riley catheter and had retention requiring this and will continue for now. Eliquis has been resumed and will monitor hemoglobin closely. Indwelling Riley catheter with some concentrated and small clots noted instructed nursing staff to irrigate the Riley and monitor for any worsening as Eliquis has just been resumed this la nena brown Will follow-up with repeat labs. Hemoglobin is stable at 7.9 today. Patient is afebrile with no reports of chest pain or worsening shortness of breath. Patient continues on 2 to 3 L and recommended wean FiO2 as tolerated. Patient was 99% on the 3 L. Patient extremely anxious to go home and reports is going home and refusing rehab. Current medications reviewed. REVIEW OF SYSTEMS: CONSTITUTIONAL: No fever, no malaise,. CARDIOVASCULAR: No chest pain, no palpitations, no syncope. PULMONARY: No reports of worsening shortness of breath GASTROINTESTINAL: Reports of diarrhea that is improved, no nausea, no vomiting, no abdominal pain. Reports tolerating diet with no problem NEUROLOGICAL: No headaches, no weakness, PHYSICAL EXAMINATION: GENERAL: The patient is alert and oriented x3, Well developed, well nourished. Elderly appearing, ill-appearing, thin built HEENT: Pupils are round and equally reacting to light. EOMI. No scleral icterus. No conjunctival pallor. Normocephalic, atraumatic. No pharyngeal erythema. No thyromegaly. CARDIOVASCULAR: S1 and S2 muffled PULMONARY: Coarse breath sound bilaterally, diminished at the bases ABDOMEN: Soft, nontender, nondistended, normoactive bowel sounds. No palpable organomegaly. MUSCULOSKELETAL: No joint swelling or deformity. EXTREMITIES: No cyanosis, clubbing, or pedal edema. NEUROLOGICAL: Gross neurological examination did not reveal any focal deficits. Diffusely weak SKIN: No rashes. Multiple bruises noted on upper and lower extremities Assessment: Shortness of breath with Acute hypoxic respiratory failure secondary to CHF exacerbation as well as large left sided pleural effusion and small right, status post left-sided thoracentesis x 2 recently and repeat 1 done on 04/11/2023 with approximately 1.2 L removed Hyperkalemia secondary to OMA and metabolic acidosis. Improved postdialysis Urinary retention requiring indwelling Riley catheter Acute on chronic kidney disease with worsening kidney functions. Patient was initiated on hemodialysis on 04/18/2023. Moderate left-sided pneumothorax postprocedure status post Thora vent placement, Thora vent removed on 04/16/2023 Acute on chronic systolic congestive heart failure exacerbation, EF is 30 to 35% Acute on chronic gastritis with bleeding noted on EGD. Colonoscopy showing internal hemorrhoids. EGD done 04/13 showed Squamocolumnar junction 41 cm from t he incisors,Diaphragmatic hiatus at 41 cm,LA grade B erosive esophagitis,Acute gastritis with bleeding. Status post EGD on 04/20/2023 with findings of dysphagia, hypertensive upper esophageal sphincter with dysmotility status post dilatation Anemia, likely chronic, transfuse if 7 or less History of moderate to severe aortic stenosis paroxysmal A-fib, currently rate controlled COPD, acute exacerbation Lactic acidosis, resolved Bilateral pleural effusion status post thoracentesis x 2 this admission GI prophylaxis DVT prophylaxis, Eliquis being resumed 04/24/2023 Full code Plan: Patient was started on hemodialysis on 04/18/2023. Vascular surgery has placed a right permacath placed on the chest wall and case management following making arrangements for outpatient dialysis. Unable to initiate dialysis until April 28, 2023 as patient cannot start dialysis outpatient on a Thursday. Plan is for continued dialysis here and possible light session on Thursday and discharge per nephrology so patient can initiate Thursday morning Case management following arranging for Home care outpatient as patient is adamant he is going home on discharge. Will have PT/OT therapy revaluate the patient again as patient is significantly weak and has had prolonged hospitalization and will definitely need ECF although patient is adamant he is not going to rehab. Patient is extremely high risk for readmission and falls General surgery following status post EGD showing dysphagia with dysmotility status post dilatation and reports to feeling improved and tolerating diet Patient was continued with Thora vent and was removed on 04/16/2023. Patient continues on 2 L via nasal cannula recommend to wean FiO2 as tolerated Follow-up on repeat labs in the a.m. and monitor kidney functions along with electrolytes. Replace electrolytes per protocol. Recommend PT/OT therapy daily as patient reports he is returning home and has had significantly increased weakness with prolonged hospitalization. Patient does have continued indwelling Riley catheter as he had for retention and with some noted hematuria. Instructed the nursing staff to irrigate and with improved urine. Hemoglobin is stable at 7.9 and Eliquis was just resumed. Will monitor for any further bleeding and hold Eliquis if need to. Continue with PPI. Due to multiple complex medical issues, prognosis is guarded The impression and plan of care has been dictated by Tania Reynoso, Nurse Practitioner as directed. Dr. Suresh MD I have performed a history and examination and MDM of this patient, discussed the same with the dictator, and agree with the dictator's assessment and plan as written ,documented as a scribe. Based on total visit time, I have performed more than 50% of the visit. Objective - Vital Signs Vital signs: Vital Signs Temp 98.2 F 04/24/23 06:50 Pulse 68 04/24/23 09:53 Resp 18 04/24/23 06:50 BP 118/55 04/24/23 06:50 Pulse Ox 98 04/24/23 06:50 FiO2 Intake & Output 04/23/23 04/24/23 04/24/23 18:59 06:59 18:59 Output Total 75 Balance -75 Weight 81 kg 75.5 kg Output: Urine 75 Other: Voiding Method Indwelling Catheter Indwelling Catheter - Labs CBC & Chem 7: 04/24/23 06:53 04/24/23 06:53
--- NOTE | 2023-04-24 15:49 | P.PN ---
Subjective Patient is seen for follow-up for acute kidney injury on top of chronic kidney disease. Renal function had deteriorated and patient is started on hemodialysis on 04/18/2023. No complaints today. Urine in the Riley bag appears quite dark. Patient will be maintained on a Thursday schedule in [facility] Objective - Vital Signs Vital signs: Vital Signs Temp 98.3 F 04/24/23 13:15 Pulse 59 L 04/24/23 13:15 Resp 17 04/24/23 13:15 BP 112/53 04/24/23 13:15 Pulse Ox 99 04/24/23 13:15 FiO2 Intake & Output 04/23/23 04/24/23 04/24/23 18:59 06:59 18:59 Intake Total 240 Output Total 75 100 Balance -75 140 Weight 81 kg 75.5 kg Intake: Oral 240 Output: Urine 75 100 Other: Voiding Method Indwelling Catheter Indwelling Catheter Indwelling Catheter - Exam Patient is awake, comfortable, no acute distress Examination of the heart S1 and S2 Examination of the lungs bilateral breath sounds are heard Abdomen is soft nontender Examination lower extremities shows trace edema [employer] exam grossly intact - Labs CBC & Chem 7: 04/24/23 06:53 04/24/23 06:53 Labs: Abnormal Lab Results - Last 24 Hours (Table) 04/24/23 04/24/23 Range/Units 06:53 06:53 RBC 2.60 L (4.40-5.60) X 10*6/uL Hgb 7.9 L (13.0-17.0) g/dL Hct 25.4 L (39.6-50.0) % MCV 97.7 H (80.0-97.0) FL MCHC 31.1 L (32.0-37.0) g/dL RDW 15.3 H (11.5-14.5) % Eosinophils # 0.53 H (0.04-0.35) X 10*3/uL Sodium 134 L (135-145) mmol/L BUN 51.7 H (9.0-27.0) mg/dL Creatinine 3.3 H (0.6-1.5) mg/dL Est GFR (CKD-EPI) 17 L (>=60) Calcium 8.4 L (8.7-10.3) mg/dL Assessment and Plan Assessment: 1. Acute kidney injury secondary to ATN secondary to anemia and cardiorenal syndrome along with urinary retention. Renal function continued to worsen and therefore patient is started on hemodialysis on 04/18/2023. No obstruction noted on ultrasound. Elevated BUN secondary to GI bleed. 2. Chronic kidney disease stage IV with baseline creatinine near 3 secondary to nephrosclerosis and obstructive uropathy. 3. Hyperkalemia secondary to acute kidney injury, acidosis and urinary retention. Improved with medical management. 4. Volume overload with pleural effusions. Improved 5. Acute blood loss anemia status post blood transfusion this admission. Eliquis on hold. Possible GI bleed. Maintained on Aranesp 6. Acute on chronic systolic CHF ejection fraction of 30 to 35% with moderate mitral and tricuspid regurgitation. 7. Metabolic acidosis secondary to acute kidney injury improved with bicarb drip. 8. Urinary retention status post Riley catheter placement. On Flomax. 9. Left hydropneumothorax, stable Plan: Hemodialysis in a.m.. Patient will be maintained on a Thursday schedule in [place]
[2023-04-25 07:37] LABS: Anisocytosis Slight; Basophils % (A) 1 %; Eosinophils # (A) 0.6 k/uL (0-0.7); Eosinophils % (A) 9 %; HCT 26.8 % (39.0-53.0); HGB 8.5 gm/dL (13.0-17.5); Hypochromasia Moderate; Lymphocytes # (A) 1.1 k/uL (1.0-4.8); Lymphocytes % (A) 16 %; MCH 31.7 pg (25.0-35.0); MCHC 31.5 g/dL (31.0-37.0); MCV 100.6 fL (80.0-100.0); Macrocytosis Slight; Mean Platelet Volume 9.4; Monocytes # (A) 0.4 k/uL (0-1.0); Monocytes % (A) 7 %; Neutrophils # (A) 4.2 k/uL (1.3-7.7); Neutrophils % (A) 64 %; Platelet Count 119 k/uL (150-450); RBC 2.67 m/uL (4.30-5.90); RDW 16.4 % (11.5-15.5); WBC 6.6 k/uL (3.8-10.6)
[2023-04-25 07:58] LABS: African American GFR (CKD) 25 (>60 ml/min/1.73 sqM); Anion Gap 7 mmol/L; Blood Urea Nitrogen 41 mg/dL (9-20); Calcium 8.1 mg/dL (8.4-10.2); Carbon Dioxide 28 mmol/L (22-30); Chloride 96 mmol/L (98-107); Glucose 85 mg/dL (74-99); Magnesium 1.8 mg/dL (1.6-2.3); Non-African American GFR(CKD) 22 (>60 ml/min/1.73 sqM); Potassium 4.2 mmol/L (3.5-5.1); Sodium 131 mmol/L (137-145)
[2023-04-25] MEDS ORDERED: Magnesium Replacement Protocol 1 EACH MISC MISCELLANE PRN (08:41)
[2023-04-25] MEDS: MAGNESIUM SULFATE-D5W PMX 1 GM in DEXTROSE/WATER 1 100ML.BAG IVPB ONE (09:54)
--- NOTE | 2023-04-25 10:56 | P.PN ---
Subjective Patient is seen in follow-up for acute kidney injury on chronic kidney disease. Started on hemodialysis April 18, 2023. Resting in bed. On nasal cannula. Denies chest pain or shortness of breath. Vital signs are stable. General: No acute distress. HEENT: Head exam is unremarkable. On nasal cannula. LUNGS: No acute distress. HEART: Rate and Rhythm are regular. ABDOMEN: Nontender. EXTREMITITES: No edema. Objective - Vital Signs Vital signs: Vital Signs Temp 97.7 F 04/25/23 07:08 Pulse 68 04/25/23 09:21 Resp 17 04/25/23 07:08 BP 104/54 04/25/23 07:08 Pulse Ox 100 04/25/23 07:08 FiO2 Intake & Output 04/24/23 04/25/23 04/25/23 18:59 06:59 18:59 Intake Total 240 Output Total 100 Balance 140 Weight 71.7 kg Intake: Oral 240 Output: Urine 100 Other: Voiding Method Indwelling Catheter Indwelling Catheter # Bowel Movements 1 - Labs CBC & Chem 7: 04/25/23 07:00 04/25/23 07:00 Labs: Abnormal Lab Results - Last 24 Hours (Table) 04/24/23 04/24/23 04/25/23 Range/Units 06:53 06:53 07:00 RBC 2.60 L 2.67 L (4.40-5.60) X 10*6/uL Hgb 7.9 L 8.5 L (13.0-17.0) g/dL Hct 25.4 L 26.8 L (39.6-50.0) % MCV 97.7 H 100.6 H (80.0-97.0) FL MCHC 31.1 L (32.0-37.0) g/dL RDW 15.3 H 16.4 H (11.5-14.5) % Plt Count 119 L (150-450) k/uL Eosinophils # 0.53 H (0.04-0.35) X 10*3/uL Sodium 134 L (135-145) mmol/L Chloride (98-107) mmol/L BUN 51.7 H (9.0-27.0) mg/dL Creatinine 3.3 H (0.6-1.5) mg/dL Est GFR (CKD-EPI) 17 L (>=60) Calcium 8.4 L (8.7-10.3) mg/dL 04/25/23 Range/Units 07:00 RBC (4.40-5.60) X 10*6/uL Hgb (13.0-17.0) g/dL Hct (39.6-50.0) % MCV (80.0-97.0) FL MCHC (32.0-37.0) g/dL RDW (11.5-14.5) % Plt Count (150-450) k/uL Eosinophils # (0.04-0.35) X 10*3/uL Sodium 131 L (135-145) mmol/L Chloride 96 L (98-107) mmol/L BUN 41 H (9.0-27.0) mg/dL Creatinine 2.54 H (0.6-1.5) mg/dL Est GFR (CKD-EPI) (>=60) Calcium 8.1 L (8.7-10.3) mg/dL Assessment and Plan Plan: Assessment: 1. Acute kidney injury secondary to ATN secondary to cardiorenal syndrome, anemia and urinary retention. Started on hemodialysis April 18, 2023. Has permacath. No hydronephrosis noted on kidney ultrasound. 2. Chronic kidney disease stage IV with baseline creatinine near 3 secondary to nephrosclerosis and obstructive uropathy. 3. Hyperkalemia secondary to acute kidney injury, acidosis and urinary re tention. Also component of GI bleed. Improved with medical management and dialysis. 4. Volume overload with pleural effusions. Improved with diuresis. 5. Acute blood loss anemia status post blood transfusion this admission. EGD done this admission showed acute on chronic gastritis with bleeding. Colonoscopy showed internal hemorrhoids and moderate to severe sigmoid diverticulosis without active bleeding. On Aranesp. Status post blood transfusion and IV DDAVP this admission. 6. Acute on chronic systolic CHF ejection fraction of 30 to 35% with moderate mitral and tricuspid regurgitation. 7. Metabolic acidosis secondary to acute kidney injury s/p bicarb drip. 8. Urinary retention status post Riley catheter placement. On Flomax. Plan: Change Lasix to 80 mg once daily. Hemodialysis today. He will be maintained on Thursday schedule at [facility]. Avoid nephrotoxins. Maintain midodrine. Hold for systolic blood pressure greater than 110. Continue to monitor renal function and urine output. Monitor for renal recovery outpatient.
--- NOTE | 2023-04-25 12:41 | P.PN ---
Subjective Progress Note Date: 04/25/23 I am seeing this patient in consultation today 04/02/2023 for dyspnea and left- sided pleural effusion. He is currently in the emergency room. He was transferred from [facility] late last night for severe hyperkalemia and acute kidney injury. Patient is a 87-year-old white male with past medical history significant for chronic kidney disease, congestive heart failure, atrial fibrillation anticoagulated on Eliquis, hyperlipidemia, COPD, and BPH. Patient is technically a poor historian. Apparently, he is complaining of shortness of breath, weakness and sore throat over the last several days. This progressively worsened, and he went into [facility] to be evaluated. Patient was found to be severely hyperkalemic. He was also found to be anemic and was transfused 1 unit PRBC. He was transferred to [facility]. Patient is currently resting in bed, on 2 L/min nasal cannula, in no acute distress. He is weak and cannot sit up in bed without assistance. Becomes short of breath with any kind of activity. He denies any chest pain, heart palpitations, or syncopal events. He does have bilateral lower extremity swelling. He has an occasional nonproductive cough. Denies any sputum production, fevers. Chest x-ray on arrival shows cardiomegaly, pulmonary vascu lar congestion, and interstitial edema. There is a moderate to large left-sided pleural effusion and small right pleural effusion.. Patient was given 60 mg of IV Lasix. A Riley catheter was inserted, and the patient has approximately 800 mL of concentrated urine. Patient states that earlier in the week he has had troubles urinating. He voids about 2-3 times per day. Endorses dysuria. Denies any hematuria, urinary frequency. Urinalysis on arrival not concerning for UTI. Trace protein. He does have baseline chronic kidney disease. Ultrasound of the abdomen and bladder did not show any hydronephrosis. Potassium level on arrival was elevated at 8.4 and is down to 5 point 3:06 amp sodium bicarb, 10 g Lokelma, 10 units insulin, 2 A D50 W, calcium gluconate, and the above-mentioned Lasix. Nephrology has been consulted. There is D5W with 3 amp sodium bicarb infusing at 50 MLS per hour. BMP on arrival has a sodium 138, testing 8.4, chloride 108, serum bicarb 18, BUN 74, creatinine 3.68, and glucose 85. Lactic acid level was 3.8 on arrival and is down to 1.6. Troponin less daniel n 0.012. NT proBNP 57,800. ECG shows normal sinus rhythm with chronic left bundle branch block without any obvious hyperkalemic changes. CBC on arrival: WBC count 8.4, hemoglobin 10.7, hematocrit 34, platelets 121. Group A strep negative. No signs of bleeding. Patient has chronic anemia. Patient denies any acute blood loss. No bloody bowel movements, melena, hematemesis. No abdominal pain or diarrhea. Vital signs are stable. The patient is seen today April 03, 2023 in follow-up in the emergency department. He is currently sitting up on the stretcher. Awake and alert in no acute distress. He is breathing a bit easier today compared to yesterday. He states he is about 50% better. He is still somewhat bronchospastic and wheezing. White count 8.6. Hemoglobin 8.1. Platelets 127. Sodium 139. Potassium 5.0. BUN 89. Creatinine 4.02. Glucose 118. He is continued on IV diuretics. Anticoagulated with Eliquis. Continued on bronchodilators. Currently in a -1.2 L balance. Making good urine. The patient is seen today April 04, 2023 in follow-up on the regular medical floor. He is awake and alert in no acute distress. Resting fairly comfortably in bed. Denies any worsening shortness of breath, cough or congestion. He is maintaining O2 saturation in the 90s on 2 L/min per nasal cannula. Chest x-ray does reveal increasing left pleural effusion and a right-sided pleural effusion. Echocardiogram confirms a right-sided pleural effusion measuring 11.9 cm, left- sided pleural effusion at 10.8 cm. The patient is currently on Eliquis this will be placed on hold for possible left-sided thoracentesis tomorrow. Count 9.0. Hemoglobin 7.8. Platelets 140. Sodium 140. Potassium 4.8. Bicarb 28. BUN 87. Creatinine 4.1. Glucose 88. He remains on Lasix 60 mg IV twice a day. Currently net -1.5 L balance The patient is seen today April 05, 2023 in follow-up on the regular medical floor. He is currently sitting up in bed. Awake and alert in no acute distress. He is maintaining O2 saturations in the 90s 2 L/min per nasal cannula. He is been afebrile. Hemodynamically stable. He did undergo a left- sided thoracentesis today with 1.4 L of straw-colored fluid removed. Fluid sent for analysis and cytology. Follow-up chest x-ray reveals a tiny left apical pneumothorax. Sodium 137. Potassium 4.1. Bicarb 31. BUN 97. Creatinine 3.86. Glucose 101. Remains on IV diuretics. Currently in a -2.8 L balance. The patient is seen today April 06, 2023 in follow-up on the regular medical floor. He is awake and alert no acute distress. He is resting comfortably in bed. He is maintaining good O2 saturations in the 90s on 2 L/min per nasal cannula. He remains on IV diuretics. Currently net -2.7 L balance. He is status post left-sided thoracentesis yesterday with 1.4 L of straw-colored fluid removed. Cytology pending. Fluid analysis transudate with a total protein of 2.6 and an LDH of 80. Today's chest x-ray shows small bilateral effusions. No evidence of pneumothorax. Count 8.7. Hemoglobin 7.7. Platelets 139. Sodium 1 39. Potassium 4.2. Bicarb 29. BUN 91. Creatinine 4.0. The patient is seen today April 07, 2023 in follow-up on the regular medical floor. He is resting comfortably in bed. Awake and alert in no acute distress. Maintaining O2 saturations in the 90s on 2 L/min per nasal cannula. He is cont inued on bronchodilators and oral diuretics. Currently net -1.2 L balance. Follow-up chest x-ray revealed creasing consolidation and pleural effusion on the left. Likely represents a hydropneumothorax of approximately 5 to 10% pneumothorax noted. No significant change. The patient is seen today April 08, 2023 in follow-up on the regular medical floor. He is awake and alert in no acute distress. Maintaining O2 saturations in the 90s on 2 L/min per nasal cannula. Laying in bed. CT scan of the chest revealed moderate-sized bilateral pleural effusions. Left effusion appears loculated and there is additionally a left anterior pneumothorax at approximately 15 to 20%. Consolidation and partial collapse of the left lung. Atelectasis in the right posterior lung. Pleural fluid cultures revealed no growth, no malignancy. No plans for chest tube placement. Eliquis has been resumed. White count 8.5. Hemoglobin 7.7. Platelets 146. Sodium 139. Potassium 3.9. Bicarb 29. BUN 96. Creatinine 3.9. The patient is seen today April 09, 2023 in follow-up on the regular medical floor. He is resting comfortably in bed. Awake and alert in no acute distress. Maintaining O2 saturations in the 90s on 2 L/min per nasal cannula. He denies any worsening shortness of breath, cough or congestion. No new labs today. No chest x-ray today. He is anticoagulated with Eliquis. The patient is seen today April 10, 2023 in follow-up on the regular medical floor. He is awake and alert in no acute distress. Resting fairly comfortably in bed. Today's chest x-ray shows reaccumulation of fluid in the left chest. He is currently on DuoNeb inhalation, Pulmicort inhalations. Remains on oral diuretics. No new labs today. Pleural fluid cultures revealed no growth. He is anticoagulated with Eliquis. The patient is seen today April 11, 2023 in follow-up on the regular medical floor. He is sitting up in bed. Awake and alert in no acute distress. Maintaining O2 saturations in the 90s on 2 L/min per nasal cannula. Sodium 134. Potassium 4.5. Bicarb 30. BUN 130. Creatinine 3.55. Glucose 88. Ultrasound of the chest did reveal a significant left-sided pleural effusion. He under went a second thoracentesis today with 1.2 L of dark yellow fluid removed. Unfortunately, follow-up chest x-ray does reveal a moderate to large left pneumothorax. The patient remains asymptomatic. Repeat chest x-ray pending. He remains on bronchodilators. Remains on oral diuretics. Plan a -1.1 L balance. The patient is seen today April 12, 2023 in follow-up on the regular medical floor. He is awake and alert in no acute distress. Maintaining O2 saturations in the 90s on 2 L/min per nasal cannula. He denies any worsening shortness of breath, cough or congestion. Denies any chest pain. Follow-up chest x-ray continues to show a left apical hydropneumothorax. Slight improvement today compared to yesterday. Pleural fluid cultures revealed no growth. White count 6.5. Hemoglobin 7.6. Platelets 186. Stool for occult blood was positive. He is continued on bronchodilators. Continued on diuretics. Currently in a -700 mL balance. On today's evaluation of 04/13/2023, the patient is being seen for a follow-up. Noted the patient has an acute hypoxic respiratory failure due to CHF and bilateral pleural effusion. Noted the patient had a large left-sided pleural effusion and a small right-sided pleural effusion. His proBNP level was elevated. He underwent a left thoracentesis on 04/05/2023 with a total of 1.4 L of fluid removed that was transudative. Subsequent CAT scan of the chest showed a 15 to 20% pneumothorax. Chest x-ray on 04/10/2023 showed significant recommendation of the left-sided pleural effusion and at the same time there was a persistent pneumothorax on the left. The patient underwent another thoracentesis on 04/11/2023 with a total of 1.2 L of fluid was removed. I reviewed the chest x-ray from today and there is a large stable left-sided hydropneumothorax. Based on that, I inserted the Thora vent in this patient and immediately around 600 cc of pleural fluid was drained in addition to air. The follow-up chest x-ray that was done showed decrease in the left-sided pneumothorax and the thoracostomy tube is in place and attached to suction with persistent air leak. The patient remains clinically and hemodynamically stable on 2 L of oxygen by nasal cannula with a pulse ox of 98%. The patient remains on [facility], on p.o. Lasix 40 mg twice a day. The patient is also on metoprolol 12.5 mg p.o. daily. His echocardiogram that was done on 04/02/2023 showed a left-ventricular ejection fraction of around 30 to 35% along with biatrial enlargement and moderate MR and moderate aortic stenosis/severe aortic stenosis. Moderate degree of tricuspid regurgitation was also present. On today's evaluation of 04/14/2023, I am seeing the patient for a follow- up.Patient has no specific complaints. The Thora vent is still in place and attached to suction. The total amount of output in terms of fluid from the left lung was in the order of 800 cc from yesterday. There is no persistent air leak. I am ordering a urgent chest x-ray to follow-up on the pneumothorax. Otherwise, the patient has no specific complaints. The patient is still on Lasix 40 mg p.o. twice a day. Rest of the medications are essentially unchan ged. Labs from today shows a sodium level of 135, potassium of 5.2, BUN is 124 with a creatinine of 4.1 and a potassium level is at 5.2. Echocardiogram is showing impaired LV function with an ejection fraction of 35% with moderate MR, severe aortic stenosis and bilateral atrial enlargement. The patient is having some fecal occult blood positive and the patient was taken off anticoagulation for now. EGD EGD that was done on 04/13/2023 showed erosive esophagitis and gastritis. On today's evaluation of 04/15/2023, the patient is able to sit up in a chair. He is calm and comfortable. The output from the left sided Thora vent has improved and the fluid output has dropped significantly over the past 24 hours. Repeat chest x-ray was done and the patient continues to have a very trace left apical pneumothorax. There is also some limited subcutaneous emphysema. Overall, the patient is doing well. No significant respiratory distress and the patient was transitioned to room air oxygen with a pulse ox of 94%. The patient is currently on Lasix 40 mg p.o. twice a day. He is on DuoNeb nebulized treatments [id number]. Renal function is being monitored. BUN is at 131 with a creatinine of 4.4 and sodium levels at 134. The WBC count of 8.4 with a hemoglobin of 7.2. Note that the total vent is still faster suction. There is no evidence of any air leak. Suction is being applied in regards to his left- sided pleural effusion which seems to be adequately drained at this point in time. On today's evaluation of 04/16/2023, the patient is being seen for a follow-up. He is doing well. No specific complaints. I repeated the chest x-ray earlier this morning and there was no evidence of any pneumothorax. No evidence of any air leak and I took the opportunity to remove the Thora vent from his left lung. He remained stable and the patient is currently on 2 L of oxygen by nasal cannula with a pulse ox of 96%. Denies having any specific complaints. He has chronic kidney disease and the patient is being monitored by nephrology. Hemoglobin today is at 6.78 the patient does not have any acute signs of GI bleeding. The patient had also a potassium level of 5.4. The patient was seen by nephrology and the patient will be given another dose of Lokelma 10 g and the patient is still maintained on Lasix 40 mg p.o. twice a day. Bronchodilators still being given in the form of DuoNeb nebulized treatments [id number] 4 times a day. The patient is on Aranesp. The patient is also scheduled to receive unit of packed RBC today. On today's evaluation of 04/17/2023, the patient respite status is stable and the patient is currently on 3 L O2 nasal cannula With a pulse ox of 97%. A repeat chest x-ray was done today and shows no evidence of any pneumothorax. The pat ient has developed a small left-sided pleural effusion. Otherwise, the patient is stable. Hemoglobin is at 7.9 with a white cell count of 7. Sodium level is at 132 with a potassium level of 5.8. The BUN is up to 143 with a creatinine of 5.0 as the patient has an acute on top of chronic kidney failure. His creatinine has been steadily on the rise. Nephrology on the case for now. Patient remains on Lasix 40 mg p.o. twice a day. On today's evaluation of 04/18/2023, respiratory status is stable and the patient has no respiratory difficulties. Nevertheless, there has been progressive worse quinn renal function and on today's evaluation his sodium level is at 135 with a potassium level of 5.9. The BUN is up to 153 with a creatinine of 5.2. Nephrology on the case and the patient was given a temporary dialysis catheter and the patient was started on hemodialysis for an acute on top of chronic kidney disease. He was started on hemodialysis today on 04/18/2023. He has a right femoral temporary dialysis catheter in place. He is feeling well. No other major respiratory difficulties. Any hemodynamic instability. 04/19/2023, the patient has no specific complaints. The patient was started on hemodialysis on 04/18/2023. He tolerated dialysis well with a total of 900 cc of ultrafiltration. He is resting comfortably in bed. No dialysis for today and this will be done tomorrow on 04/20/2023. No respiratory difficulties and he remains on 2 L of oxygen by nasal cannula. No cough or sputum production. No altered mentation. Potassium level today is at 5.2 with a BUN of 110 and a cre atinine of 3.7. WBC count 7.2 with a hemoglobin of 8.5. The patient is seen today April 20, 2023 in follow-up on the regular medical floor. He is currently sitting up in bed. Awake and alert in no acute distress. He is maintaining O2 saturations in the upper 90s on 2 L/min per nasal cannula. Afebrile. Hemodynamically stable. Currently receiving hemodialysis. The plan is for colonoscopy today as well. He is status post 1 unit of packed red blood cells this admission. Hemoglobin currently 8.2. Platelets 206. White count 7.1. Sodium 133. Potassium 4.8. Bicarb 29. BUN 112. Creatinine 4.19. He remains on remains on oral diuretics. The patient is seen today April 21, 2023 in follow-up on the regular medical floor. He is awake and alert in no acute distress. Resting comfortably in bed. Denies any worsening shortness of breath, cough or congestion. He is maintaining O2 saturation in the 90s on 3 L/min per nasal cannula. He is having some complaints of a sore throat. He did undergo EGD yesterday that revealed esophageal stricture and had undergone esophageal dilatation. Colonoscopy revealed severe sigmoid diverticulosis. White count 6.1. Hemoglobin 8.3. Platelets 182. Sodium 137. Potassium 4.4. Bicarb 27. BUN 62. Creatinine 3.5. Glucose 84. Plan is for repeat dialysis tomorrow. The patient is seen today April 22, 2023 in follow-up on the regular medical floor. He is currently resting comfortably in bed. Awake and alert in no acute distress. Undergoing hemodialysis today. He is maintaining good O2 saturations in the upper 90s on 3 L/min per nasal cannula. He is afebrile. Hemodynamically stable. Follow-up chest x-ray does reveal cardiomegaly and some pulmonary vascular congestion with bilateral effusions. He is status post 1 unit of packe d red blood cells this admission. Current hemoglobin 8.4. Platelets 201. White count 6.8. Sodium 136. Potassium 4.2. Bicarb 27. BUN 67. Creatinine 3.8. He is continued on oral diuretics. The patient is seen today April 23, 2023 in follow-up on the regular medical floor. He is awake and alert in no acute distress. Resting in bed. Maintaining O2 saturations in the 90s on 3 L/min per nasal cannula. He remains on hemodialysis receiving it today on his Thursday schedule. No new labs today. The patient is seen today April 24, 2023 in follow-up on the regular medical fl oor. He is resting comfortably in bed. Awake and alert in no acute distress. Continues to maintain good O2 saturations in the upper 90s on 3 L/min per nasal cannula. He is afebrile. Hemodynamically stable. White count 6.9. Hemoglobin 7.9. Platelets 169. Sodium 134. Potassium 4.5. Bicarb 28. BUN 52. Creatinine 3.3. He is continued on oral diuretics. Anticoagulated with Eliquis. Remains on bronchodilators. The patient is seen today April 25, 2023 in follow-up on the regular medical floor. He remains awake and alert in no acute distress. Currently resting in bed. Plan is for hemodialysis again today. White count 6.6. Hemoglobin 8.5. Platelets 119. Sodium 131. Potassium 4.2. Bicarb 28. BUN 41. Creatinine 2.54. Glucose 85. He remains on bronchodilators, diuretics. Anticoagulated with Eliquis. Objective - Vital Signs Vital signs: Vital Signs Temp 97.7 F 04/25/23 07:08 Pulse 68 04/25/23 09:21 Resp 17 04/25/23 07:08 BP 100/55 04/25/23 12:20 Pulse Ox 100 04/25/23 07:08 FiO2 Intake & Output 04/24/23 04/25/23 04/25/23 18:59 06:59 18:59 Intake Total 240 Output Total 100 Balance 140 Weight 71.7 kg Intake: Oral 240 Output: Urine 100 Other: Voiding Method Indwelling Catheter Indwelling Catheter # Bowel Movements 1 - Exam GENERAL EXAM: Alert, hard of hearing, 87-year-old male, in no apparent distress. HEAD: Normocephalic and atraumatic EYES: Normal reaction of pupils, equal size. NOSE: Clear with pink turbinates. THROAT: Mild erythema, no exudates NECK: No masses, no JVD. Right IJ hemodialysis catheter in place CHEST: No chest wall deformity. LUNGS: Equal air entry with right basilar inspiratory crackles. Diminished in the left lung base. CVS: S1 and S2 normal with no audible murmur, regular rhythm. No extra heart sounds ABDOMEN: No hepatosplenomegaly, active bowel sounds, no guarding or rigidity. SPINE: No scoliosis or deformity SKIN: No rashes CENTRAL NERVOUS SYSTEM: No focal deficits, tone is normal in all 4 extremities. EXTREMITIES: There is moderate bilateral lower extremity nonpitting edema. Peripheral pulses are intact. - Labs CBC & Chem 7: 04/25/23 07:00 04/25/23 07:00 Labs: Abnormal Lab Results - Last 24 Hours (Table) 04/25/23 04/25/23 Range/Units 07:00 07:00 RBC 2.67 L (4.30-5.90) m/uL Hgb 8.5 L (13.0-17.5) gm/dL Hct 26.8 L (39.0-53.0) % MCV 100.6 H (80.0-100.0) fL RDW 16.4 H (11.5-15.5) % Plt Count 119 L (150-450) k/uL Sodium 131 L (137-145) mmol/L Chloride 96 L (98-107) mmol/L BUN 41 H (9-20) mg/dL Creatinine 2.54 H (0.66-1.25) mg/dL Calcium 8.1 L (8.4-10.2) mg/dL Assessment and Plan Assessment: Acute hypoxemic respiratory failure, secondary to acute systolic CHF exacerbation and fluid overload. Chest x-ray shows cardiomegaly, pulmonary vascular congestion, and interstitial edema. Patient also has moderate to large left-sided pleural effusion and a small right pleural effusion. NT proBNP was elevated at 57,800. Status post left-sided thoracentesis April 05, 2023 with 1.4 L of straw-colored fluid removed. Fluid analysis transudate, cytology for malignancy. CT scan of the chest and follow-up chest x-ray reveals stable hydr opneumothorax of approximately 15 to 20%. Chest x-ray April 10, 2023 shows significant reaccumulation of fluid in the left chest. Ultrasound reveals a recurrent left pleural effusion measuring 10.4 cm. A second thoracentesis was performed April 11, 2023 with 1.2 L of fluid removed. Moderate left-sided pneumothorax post procedure, Thora vent placed and subsequently removed 04/16/2023 Systolic heart failure with ejection fraction of 30 to 35% Moderate to severe aortic stenosis Moderate mitral regurgitation Acute on chronic kidney disease, creatinine was on the rise, started on hemo dialysis Severe hyperkalemia, improved post hemodialysis Lactic acidosis, improved Chronic obstructive pulmonary disease, stable History of paroxysmal atrial fibrillation, anticoagulated on Eliquis, currently normal sinus Benign prostatic hyperplasia Anemia of chronic disease, patient reportedly received 1 unit PRBC at [facility] and a second unit here Erosive esophagitis and gastritis. EGD from 04/20/2023 revealed esophageal stricture and is status post dilatation Severe diverticulosis noted on colonoscopy 04/20/2023 Plan: The patient was seen and evaluated Medications and labs reviewed Continued on diuretics Receiving hemodialysis here today Scheduled to have hemodialysis at [facility] starting 04/28/2023 Cleared for discharge from the pulmonary standpoint I have personally seen and examined the patient, performed the documentation and the assessment and plan as written. Number of minutes spent on the visit: 10.
--- NOTE | 2023-04-25 13:43 | P.PN ---
Subjective Progress Note Date: 04/25/23 Patient is a 87-year-old white male with past medical history significant for chronic kidney disease, congestive heart failure, atrial fibrillation anticoagulated on Eliquis, hyperlipidemia, COPD, and BPH, who was transferred from [facility] for severe hyperkalemia and acute kidney injury. Laura thayer has been complaining of shortness of breath and weakness for a few days. Patient also complaining of sore throat. Patient weakness and shortness of breath progressed so he eventually presented to [facility] where he was evaluated, patient was found to have elevated potassium levels of 8.4, patient was given hyperkalemia protocol and received sodium bicarb, Lokelma, insulin and dextrose. Chest x-ray done showed large left pleural effusion small right pleural effusion, patient was transferred to [facility]. Patient has been complaining of shortness of breath on exertion and rest. Denies any chest pain. There is complaint of swelling of lower extremities. Patient complaining of nonproductive cough. Denies any fevers or chills Patient admitted to internal medicine service 04/03. Patient seen and examined. 2D echo done showed LVEF of 35% with global hypokinesis, severe biatrial enlargement, moderate mitral regurg, severe aortic stenosis. 04/04. Patient seen and examined. States breathing is improving, still gets short of breath on exertion. 04/05. Patient seen and examined. Patient being planned for thoracentesis this morning with pulmonary medicine. States breathing is improved. Denies any nausea or vomiting 04/06. Patient seen and examined. States breathing has improved, feels much better after thoracentesis yesterday. Labs done this morning showed WBC 8.7, hemoglobin 7.7, platelet count 139, sodium 139, potassium 4.2, BUN 90, creatinine 4 04/07/2023 Patient is currently sitting up in the chair. Awake alert and oriented 3. Currently on 2 L oxygen via nasal cannula. Patient is being cannula on by mouth twice a day. Also on DuoNeb's and Pulmicort inhalation. No comments of nausea or vomiting. Tolerating oral diet. No bowel movement today. Laboratory data showed sodium 138 potassium 4.0 chloride 95 BUN 91.1 and creatinine 4.0 Patient is being followed by pulmonary and nephrology. Chest x-ray showed increasing consolidation and pleural effusion on the left. Likely represent a hydropneumothorax of approximately 5-10% pneumothorax noted. No significant interval change. 04/08/2023 Patient is currently sitting which it. Awake alert and oriented 3. requiring oxygen at a 2 L via nasal cannula. pleural fluid cultures showed no growth. No plans for chest tube placement. Pulmonary is on board. laboratory data showed sodium 139, potassium 3.9, chloride 95, BUN 96.5 and creatinine 3.1. Nephrology and pulmonology is on board. 04/09/2023 Patient is sitting in the chair. Awake alert and oriented 3. Requiring 2 L oxygen with nasal cannula. Patient does have home oxygen. Patient has been afebrile. Able to tolerate oral diet. Pleural fluid culture is negative. Cytology is negative for malignancy.. Repeat chest x-ray was ordered for tomorrow. No plan for chest tube placement at this time. Pulmonary is on board. No new laboratory data today. 04/11. Patient seen and examined. Repeat chest x-ray done showed pneumothorax moderate to large left, currently not in respiratory distress. Denies any blood in the stools 04/12. Patient seen and examined. Labs done this morning showed WBC 6.5, hemoglobin 7.6, platelet count 186, sodium 130, potassium 4.8, BUN 122, creatinine 3.9. FOBT was positive, surgery was consulted, they recommended doing EGD which is scheduled for tomorrow morning. N.p.o. at midnight 04/13. Patient seen and examined. Patient went for EGD this morning which showe d Squamocolumnar junction 41 cm from the incisors,Diaphragmatic hiatus at 41 cm,LA grade B erosive esophagitis,Acute gastritis with bleeding. 04/14. Patient seen examined. Patient had left-sided Thora vent placed. Shortness of breath has improved. Denies any nausea or vomiting. 04/15/2023 Patient is seen and evaluated in follow-up this morning continues on 3 L via nasal cannula currently weaning FiO2 as tolerated. Patient being followed by pulmonary recommending follow-up chest x-ray to monitor left-sided pneumothorax. Patient continues with left Thora vent and pulmonary discussing possibly removing the chest tube. Patient also being followed by cardiology as well as nephrology with CHF exacerbation along with acute on chronic kidney disease exacerbation. Patient has had prolonged hospitalization and generalized weakness and patient reports will be returning home and has support at the home and will continue with rehab in the outpatient setting. Patient is adamant he is going home once discharged. Hemoglobin is stable above 7 at 7.2 today white count remains normal, sodium is 134 with a potassium of 5.4, BUN is 131 and creatinine is 4.4, LFTs slightly trending down and C. difficile testing from yesterday was negative. Patient continues on oral Lasix. Potassium slightly elevated today and was given a dose of Lokelma. Will follow-up on repeat labs. Patient was continued on scheduled lactulose per surgery recommendations and will make as needed as patient is reporting having loose stools. 04/16/2023 Patient is seen in follow-up today status post chest x-ray today that showed a trace pneumothorax on the left and patient is scheduled to have the thoracotomy tube removed. Hemoglobin this morning slightly low at 6.7 and will transfuse 1 unit of PRBCs and follow-up on repeat labs later this afternoon. Patient continues on 3 L via nasal cannula reporting continued shortness of breath although no worse. Kidney functions continue with an elevated BUN of 138 and creatinine is 4.5. Nephrology is following. Potassium remains elevated and is status post a dose of Lokelma and patient has been given DDAVP today. Will follow-up with repeat labs. Encouraged increase activity as tolerated recommend PT/OT therapy evaluation. General surgery following as well with plans of endoscopic intervention including EGD and colonoscopy once more stable. Possibly Thursday. Anticoagulation remains on hold. 04/17/2023 Patient is seen in follow-up today with multiple medical consultations following. Patient had chest tube removed maintained on 3 L reports tolerating well with no worsening shortness of breath. Kidney functions continue to worsen with nephrology following recommending renal replacement. Vascular surgery consulted for dialysis cath placement. Patient is afebrile with no reported chest pain or palpitations noted. General surgery also following with plans on colonoscopy on Thursday. Hemoglobin is stable currently. Will follow-up with repeat labs and continue to monitor closely. Given significant comorbidities, prognosis is guarded. 3-2 24 Patient is currently lying in the bed. Awake alert and oriented x 3. Patient states that he has difficulty breathing and tightness in the chest. Currently requiring oxygen at 2 L via nasal cannula. Otherwise patient was found to be hyperkalemic potassium 5.9. Patient was placed on femoral catheter and was started on hemodialysis today. Denies any nausea or vomiting. Tolerating oral diet. No headache or dizziness or lightheadedness. Hemoglobin was 7.9 this morning. Laboratory data showed sodium 135 potassium 5.9 chloride 90 bicarb is 26.2 anion gap 18.8, BUN 153 and creatinine 5.2 and GFR 10 calcium 9.1. 04/19/2023 Patient is lying in the bed. Awake alert and oriented x 3. Patient did tolerate hemodialysis yesterday. Hemodialysis will be tomorrow. Currently requiring 2 L oxygen via nasal cannula. Afebrile. No cough or sputum production. Patient states that he feels better. No nausea or vomiting. Tolerating oral diet. Laboratory work showed WBC 7.2 hemoglobin 8.5 and platelets 194 Sodium 133 potassium 5.2 chloride 96 bicarb is 28 BUN 110 and creatinine 3.7 creatinine phosphorus 4.7. Nephrology and pulmonary is on board. 04/20/2023 Patient is seen and evaluated in follow-up today currently receiving hemodialysis maintained on 2 to 3 L via nasal cannula. General surgery also following working on EGD with concerns of dysphagia postdialysis. Patient is currently n.p.o. and anticoagulation remains on hold. Stable hemoglobin of 8.2 today and will discuss further with surgery regarding anticoagulation after surgical report. Patient is currently afebrile with no reports of chest pain or shortness of breath. Patient tolerating diet with no reported nausea or vomiti ng. Patient is tolerating hemodialysis that was just started this week. Patient reports he continues to want to go home and case management following working on arranging possible outpatient hemodialysis as well as home care. 04/21/2023 Patient is seen in follow-up today with vascular surgery following scheduled to have permacath placed for outpatient hemodialysis. Patient is maintained on dialysis along with multiple other consultations following including pulmonary. Patient underwent EGD with dilatation showing severe esophageal stenosis. Patient tolerating diet and denies any issues with swallowing at this time. Patient hemoglobin is stable at 8.3 with no active bleeding noted. Discussed with general surgery regarding resuming anticoagulation and will hold for today as patient is scheduled to receive permacath placement. Likely okay for resuming anticoagulation tomorrow. Patient is currently afebrile with no reports of chest pain or worsening shortness of breath. Patient is extremely anxious and wants to go home but is also significantly weak and would benefit from ECF. Patient is adamant he is going home and has home care. Case management following and will have PT/OT reevaluate the patient with recommendations. 04/23/2023 Patient is seen in follow-up today is status post permacath placement and arranging for outpatient dialysis although unavailable until Thursday morning. Patient is unable to start hemodialysis on Thursday. Attempted to call dialysis center for sooner times although no time available. Discussed with nephrology and recommending continuing and possibly holding until Thursday for short session and then discharge so patient can initiate outpatient hemodialysis on Thursday. Patient followed by general surgery as well status post EGD with colonoscopy with no active bleeding noted currently and hemoglobin is stable and will resume Eliquis and monitor. Patient is afebrile with no reported chest pain or shortness of breath. Patient reports to feeling improved and continues to request when he can go home. Patient is extremely weak and extremely high risk for readmission and significant falls as patient has had prolonged hospitalization and would benefit from rehab although patient is adamant he is going home and is refusing rehab. 04/24/2023 Patient is seen in follow-up today and is continued on hemodialysis with nephrology following. Multiple medical consultations following and has cleared the patient for discharge although patient unable to initiate hemodialysis on Thursday and patient is scheduled for dialysis starting Thursday in the outpatient setting. Patient continues with indwelling Riley catheter and had retention requiring this and will continue for now. Eliquis has been resumed and will monitor hemoglobin closely. Indwelling Riley catheter with some concentrated and small clots noted instructed nursing staff to irrigate the Riley and monitor for any worsening as Eliquis has just been resumed this morning. Will follow-up with repeat labs. Hemoglobin is stable at 7.9 today. Patient is afebrile with no reports of chest pain or worsening shortness of breath. Patient continues on 2 to 3 L and recommended wean FiO2 as tolerated. Patient was 99% on the 3 L. Patient extremely anxious to go home and reports is going home and refusing rehab. 04/25/2023 Patient is seen and evaluated today on the medical floor. He remains on hemodialysis while inpatient should be undergoing hemodialysis today. Patient will begin dialysis on a Thursday schedule outpatient and unable to coordinate this until Thursday as patient is unable to start dialysis until Thursday. Patient reports that he will be going home on discharge. He continues with indwelling catheter. Urine is clear yellow today in the Riley bag. Hemoglobin remained stable at 8.5 and he remains on Eliquis. Patient has no acute complaints. He continues on 3L oxygen support via nasal cannula with oxygen saturations of 100%. This could be weaned. Patient continues on oral Lasix 40 mg twice a day. Current medications reviewed. REVIEW OF SYSTEMS: CONSTITUTIONAL: No fever, no malaise,. CARDIOVASCULAR: No chest pain, no palpitations, no syncope. PULMONARY: No reports of worsening shortness of breath GASTROINTESTINAL: Reports of diarrhea that is improved, no nausea, no vomiting, no abdominal pain. Reports tolerating diet with no problem NEUROLOGICAL: No headaches, no weakness, PHYSICAL EXAMINATION: GENERAL: The patient is alert and oriented x3, Well developed, well nourished. Elderly appearing, ill-appearing, thin built HEENT: Pupils are round and equally reacting to light. EOMI. No scleral icterus. No conjunctival pallor. Normocephalic, atraumatic. No pharyngeal erythema. No thyromegaly. CARDIOVASCULAR: S1 and S2 muffled PULMONARY: Coarse breath sound bilaterally, diminished at the bases ABDOMEN: Soft, nontender, nondistended, normoactive bowel sounds. No palpable organomegaly. MUSCULOSKELETAL: No joint swelling or deformity. EXTREMITIES: No cyanosis, clubbing, or pedal edema. NEUROLOGICAL: Gross neurological examination did not reveal any focal deficits. Diffusely weak SKIN: No rashes. Multiple bruises noted on upper and lower extremities Assessment: -Shortness of breath with acute hypoxic respiratory failure secondary to CHF exacerbation as well as large left sided pleural effusion and small right, status post left-sided thoracentesis x 2 recently and repeat 1 done on 04/11/2023 with approximately 1.2 L removed -Hyperkalemia secondary to OMA and metabolic acidosis. Improved post dialysis -Urinary retention requiring indwelling Riley catheter -Acute on chronic kidney disease with worsening kidney functions. Patient was initiated on hemodialysis on 04/18/2023. -Moderate left-sided pneumothorax postprocedure status post Thora vent placement, Thora vent removed on 04/16/2023 -Acute on chronic systolic congestive heart failure exacerbation, EF is 30 to 35% -Acute on chronic gastritis with bleeding noted on EGD. Colonoscopy showing internal hemorrhoids. 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 Status post EGD on 04/20/2023 with findings of dysphagia, hypertensive upper esophageal sphincter with dysmotility status post dilatation -Anemia, likely chronic, transfuse if 7 or less -History of moderate to severe aortic stenosis -Paroxysmal A-fib, currently rate controlled -COPD, acute exacerbation -Lactic acidosis, resolved GI prophylaxis DVT prophylaxis, Eliquis being resumed 04/24/2023 Full code Plan: -Patient was started on hemodialysis on 04/18/2023. Vascular surgery has placed a right permacath placed on the chest wall and case management following making arrangements for outpatient dialysis. Unable to initiate dialysis until April 28, 2023 as patient cannot start dialysis outpatient on a Thursday. Plan is for continued dialysis here and possible light session on Thursday and discharge per nephrology so patient can initiate Thursday morning -Case management following arranging for Home care outpatient as patient is adamant he is going home on discharge. -Will have PT/OT therapy revaluate the patient again as patient is significantly weak and has had prolonged hospitalization and will definitely need ECF although patient is adamant he is not going to rehab. Patient is extremely high risk for readmission and falls -General surgery following status post EGD showing dysphagia with dysmotility status post dilatation and reports to feeling improved and tolerating diet -Patient was continued with Thora vent and was removed on 04/16/2023. Patient continues on 2 L via nasal cannula recommend to wean FiO2 as tolerated -Follow-up on repeat labs in the a.m. and monitor kidney functions along with electrolytes. Replace electrolytes per protocol. -Recommend PT/OT therapy daily as patient reports he is returning home and has had significantly increased weakness with prolonged hospitalization. -Patient does have continued indwelling Riley catheter as he had for retention and with some noted hematuria. Instructed the nursing staff to irrigate and with improved urine. Hemoglobin is stable at 7.9 and Eliquis was just resumed. Will monitor for any further bleeding and hold Eliquis if need to. -Continue with PPI. -Due to multiple complex medical issues, prognosis is guarded The impression and plan of care has been dictated by Kandice Britt, Nurse Practitioner as directed. Dr. Suresh MD I have performed a history and physical examination and medical decision making of this patient, discussed the same with the dictator, and agree with the dictators assessment and plan as written, documented as a scribe. Based on total visit time, I have performed more than 50% of this visit. Objective - Vital Signs Vital signs: Vital Signs Temp 97.7 F 04/25/23 07:08 Pulse 68 04/25/23 09:21 Resp 17 04/25/23 07:08 BP 100/55 04/25/23 12:20 Pulse Ox 100 04/25/23 07:08 FiO2 Intake & Output 04/24/23 04/25/23 04/25/23 18:59 06:59 18:59 Intake Total 240 Output Total 100 Balance 140 Weight 71.7 kg Intake: Oral 240 Output: Urine 100 Other: Voiding Method Indwelling Catheter Indwelling Catheter # Bowel Movements 1 - Labs CBC & Chem 7: 04/25/23 07:00 04/25/23 07:00 Labs: Abnormal Lab Results - Last 24 Hours (Table) 04/25/23 04/25/23 Range/Units 07:00 07:00 RBC 2.67 L (4.30-5.90) m/uL Hgb 8.5 L (13.0-17.5) gm/dL Hct 26.8 L (39.0-53.0) % MCV 100.6 H (80.0-100.0) fL RDW 16.4 H (11.5-15.5) % Plt Count 119 L (150-450) k/uL Sodium 131 L (137-145) mmol/L Chloride 96 L (98-107) mmol/L BUN 41 H (9-20) mg/dL Creatinine 2.54 H (0.66-1.25) mg/dL Calcium 8.1 L (8.4-10.2) mg/dL Assessment and Plan Time with Patient: Less than 30
--- NOTE | 2023-04-26 10:48 | P.PN ---
Subjective Patient is seen in follow-up for acute kidney injury on chronic kidney disease. Started on hemodialysis April 18, 2023. Resting in bed. On nasal cannula. Denies chest pain or shortness of breath. No problems with dialysis yesterday. Vital signs are stable. General: No acute distress. HEENT: Head exam is unremarkable. On nasal cannula. LUNGS: No acute distress. HEART: Rate and Rhythm are regular. ABDOMEN: Nontender. EXTREMITITES: No edema. Objective - Vital Signs Vital signs: Vital Signs Temp 97.9 F 04/26/23 07:03 Pulse 68 04/26/23 09:36 Resp 20 04/26/23 07:45 BP 105/57 04/26/23 07:03 Pulse Ox 98 04/26/23 07:03 FiO2 Intake & Output 04/25/23 04/26/23 04/26/23 17:59 06:59 18:59 Intake Total Output Total Balance Weight Intake: Oral Hemodialysis Output: Urine Hemodialysis Other: Voiding Method Indwelling Catheter # Bowel Movements - Labs CBC & Chem 7: 04/25/23 07:00 04/25/23 07:00 Assessment and Plan Plan: Assessment: 1. Acute kidney injury secondary to ATN secondary to cardiorenal syndrome, anemia and urinary retention. Started on hemodialysis April 18, 2023. Has permacath. No hydronephrosis noted on kidney ultrasound. 2. Chronic kidney disease stage IV with baseline creatinine near 3 secondary to nephrosclerosis and obstructive uropathy. 3. Hyperkalemia secondary to acute kidney injury, acidosis and urinary retention. Also component of GI bleed. Improved with medical management and dialysis. 4. Volume overload with pleural effusions. Improved with diuresis. 5. Acute blood loss anemia status post blood transfusion this admission. EGD done this admission showed acute on chronic gastritis with bleeding. Colonoscopy showed internal hemorrhoids and moderate to severe sigmoid diverticulosis without active bleeding. On Aranesp. Status post blood transfusion and IV DDAVP this admission. 6. Acute on chronic systolic CHF ejection fraction of 30 to 35% with moderate mitral and tricuspid regurgitation. 7. Metabolic acidosis secondary to acute kidney injury s/p bicarb drip. 8. Urinary retention status post Riley catheter placement. On Flomax. Plan: Maintain Lasix. Hemodialysis Thursday. He will be maintained on Thursday schedule at [facility]. Avoid nephrotoxins. Maintain midodrine. Hold for systolic blood pressure greater than 110. Continue to monitor renal function and urine output. Monitor for renal recovery outpatient. Check phosphorus level.
--- NOTE | 2023-04-26 11:25 | P.PN ---
Subjective Progress Note Date: 04/26/23 I am seeing this patient in consultation today 04/02/2023 for dyspnea and left- sided pleural effusion. He is currently in the emergency room. He was transferred from [facility] late last night for severe hyperkalemia and acute kidney injury. Patient is a 87-year-old white male with past medical history significant for chronic kidney disease, congestive heart failure, atrial fibrillation anticoagulated on Eliquis, hyperlipidemia, COPD, and BPH. Patient is technically a poor historian. Apparently, he is complaining of shortness of breath, weakness and sore throat over the last several days. This progressively worsened, and he went into [facility] to be evaluated. Patient was found to be severely hyperkalemic. He was also found to be anemic and was transfused 1 unit PRBC. He was transferred to [facility]. Patient is currently resting in bed, on 2 L/min nasal cannula, in no acute distress. He is weak and cannot sit up in bed without assistance. Becomes short of breath with any kind of activity. He denies any chest pain, heart palpitations, or syncopal events. He does have bilateral lower extremity swelling. He has an occasional nonproductive cough. Denies any sputum production, fevers. Chest x-ray on arrival shows cardiomegaly, pulmonary vascu lar congestion, and interstitial edema. There is a moderate to large left-sided pleural effusion and small right pleural effusion.. Patient was given 60 mg of IV Lasix. A Riley catheter was inserted, and the patient has approximately 800 mL of concentrated urine. Patient states that earlier in the week he has had troubles urinating. He voids about 2-3 times per day. Endorses dysuria. Denies any hematuria, urinary frequency. Urinalysis on arrival not concerning for UTI. Trace protein. He does have baseline chronic kidney disease. Ultrasound of the abdomen and bladder did not show any hydronephrosis. Potassium level on arrival was elevated at 8.4 and is down to 5 point 3:06 amp sodium bicarb, 10 g Lokelma, 10 units insulin, 2 A D50 W, calcium gluconate, and the above-mentioned Lasix. Nephrology has been consulted. There is D5W with 3 amp sodium bicarb infusing at 50 MLS per hour. BMP on arrival has a sodium 138, testing 8.4, chloride 108, serum bicarb 18, BUN 74, creatinine 3.68, and glucose 85. Lactic acid level was 3.8 on arrival and is down to 1.6. Troponin less daniel n 0.012. NT proBNP 57,800. ECG shows normal sinus rhythm with chronic left bundle branch block without any obvious hyperkalemic changes. CBC on arrival: WBC count 8.4, hemoglobin 10.7, hematocrit 34, platelets 121. Group A strep negative. No signs of bleeding. Patient has chronic anemia. Patient denies any acute blood loss. No bloody bowel movements, melena, hematemesis. No abdominal pain or diarrhea. Vital signs are stable. The patient is seen today April 03, 2023 in follow-up in the emergency department. He is currently sitting up on the stretcher. Awake and alert in no acute distress. He is breathing a bit easier today compared to yesterday. He states he is about 50% better. He is still somewhat bronchospastic and wheezing. White count 8.6. Hemoglobin 8.1. Platelets 127. Sodium 139. Potassium 5.0. BUN 89. Creatinine 4.02. Glucose 118. He is continued on IV diuretics. Anticoagulated with Eliquis. Continued on bronchodilators. Currently in a -1.2 L balance. Making good urine. The patient is seen today April 04, 2023 in follow-up on the regular medical floor. He is awake and alert in no acute distress. Resting fairly comfortably in bed. Denies any worsening shortness of breath, cough or congestion. He is maintaining O2 saturation in the 90s on 2 L/min per nasal cannula. Chest x-ray does reveal increasing left pleural effusion and a right-sided pleural effusion. Echocardiogram confirms a right-sided pleural effusion measuring 11.9 cm, left- sided pleural effusion at 10.8 cm. The patient is currently on Eliquis this will be placed on hold for possible left-sided thoracentesis tomorrow. Count 9.0. Hemoglobin 7.8. Platelets 140. Sodium 140. Potassium 4.8. Bicarb 28. BUN 87. Creatinine 4.1. Glucose 88. He remains on Lasix 60 mg IV twice a day. Currently net -1.5 L balance The patient is seen today April 05, 2023 in follow-up on the regular medical floor. He is currently sitting up in bed. Awake and alert in no acute distress. He is maintaining O2 saturations in the 90s 2 L/min per nasal cannula. He is been afebrile. Hemodynamically stable. He did undergo a left- sided thoracentesis today with 1.4 L of straw-colored fluid removed. Fluid sent for analysis and cytology. Follow-up chest x-ray reveals a tiny left apical pneumothorax. Sodium 137. Potassium 4.1. Bicarb 31. BUN 97. Creatinine 3.86. Glucose 101. Remains on IV diuretics. Currently in a -2.8 L balance. The patient is seen today April 06, 2023 in follow-up on the regular medical floor. He is awake and alert no acute distress. He is resting comfortably in bed. He is maintaining good O2 saturations in the 90s on 2 L/min per nasal cannula. He remains on IV diuretics. Currently net -2.7 L balance. He is status post left-sided thoracentesis yesterday with 1.4 L of straw-colored fluid removed. Cytology pending. Fluid analysis transudate with a total protein of 2.6 and an LDH of 80. Today's chest x-ray shows small bilateral effusions. No evidence of pneumothorax. Count 8.7. Hemoglobin 7.7. Platelets 139. Sodium 1 39. Potassium 4.2. Bicarb 29. BUN 91. Creatinine 4.0. The patient is seen today April 07, 2023 in follow-up on the regular medical floor. He is resting comfortably in bed. Awake and alert in no acute distress. Maintaining O2 saturations in the 90s on 2 L/min per nasal cannula. He is cont inued on bronchodilators and oral diuretics. Currently net -1.2 L balance. Follow-up chest x-ray revealed creasing consolidation and pleural effusion on the left. Likely represents a hydropneumothorax of approximately 5 to 10% pneumothorax noted. No significant change. The patient is seen today April 08, 2023 in follow-up on the regular medical floor. He is awake and alert in no acute distress. Maintaining O2 saturations in the 90s on 2 L/min per nasal cannula. Laying in bed. CT scan of the chest revealed moderate-sized bilateral pleural effusions. Left effusion appears loculated and there is additionally a left anterior pneumothorax at approximately 15 to 20%. Consolidation and partial collapse of the left lung. Atelectasis in the right posterior lung. Pleural fluid cultures revealed no growth, no malignancy. No plans for chest tube placement. Eliquis has been resumed. White count 8.5. Hemoglobin 7.7. Platelets 146. Sodium 139. Potassium 3.9. Bicarb 29. BUN 96. Creatinine 3.9. The patient is seen today April 09, 2023 in follow-up on the regular medical floor. He is resting comfortably in bed. Awake and alert in no acute distress. Maintaining O2 saturations in the 90s on 2 L/min per nasal cannula. He denies any worsening shortness of breath, cough or congestion. No new labs today. No chest x-ray today. He is anticoagulated with Eliquis. The patient is seen today April 10, 2023 in follow-up on the regular medical floor. He is awake and alert in no acute distress. Resting fairly comfortably in bed. Today's chest x-ray shows reaccumulation of fluid in the left chest. He is currently on DuoNeb inhalation, Pulmicort inhalations. Remains on oral diuretics. No new labs today. Pleural fluid cultures revealed no growth. He is anticoagulated with Eliquis. The patient is seen today April 11, 2023 in follow-up on the regular medical floor. He is sitting up in bed. Awake and alert in no acute distress. Maintaining O2 saturations in the 90s on 2 L/min per nasal cannula. Sodium 134. Potassium 4.5. Bicarb 30. BUN 130. Creatinine 3.55. Glucose 88. Ultrasound of the chest did reveal a significant left-sided pleural effusion. He under went a second thoracentesis today with 1.2 L of dark yellow fluid removed. Unfortunately, follow-up chest x-ray does reveal a moderate to large left pneumothorax. The patient remains asymptomatic. Repeat chest x-ray pending. He remains on bronchodilators. Remains on oral diuretics. Plan a -1.1 L balance. The patient is seen today April 12, 2023 in follow-up on the regular medical floor. He is awake and alert in no acute distress. Maintaining O2 saturations in the 90s on 2 L/min per nasal cannula. He denies any worsening shortness of breath, cough or congestion. Denies any chest pain. Follow-up chest x-ray continues to show a left apical hydropneumothorax. Slight improvement today compared to yesterday. Pleural fluid cultures revealed no growth. White count 6.5. Hemoglobin 7.6. Platelets 186. Stool for occult blood was positive. He is continued on bronchodilators. Continued on diuretics. Currently in a -700 mL balance. On today's evaluation of 04/13/2023, the patient is being seen for a follow-up. Noted the patient has an acute hypoxic respiratory failure due to CHF and bilateral pleural effusion. Noted the patient had a large left-sided pleural effusion and a small right-sided pleural effusion. His proBNP level was elevated. He underwent a left thoracentesis on 04/05/2023 with a total of 1.4 L of fluid removed that was transudative. Subsequent CAT scan of the chest showed a 15 to 20% pneumothorax. Chest x-ray on 04/10/2023 showed significant recommendation of the left-sided pleural effusion and at the same time there was a persistent pneumothorax on the left. The patient underwent another thoracentesis on 04/11/2023 with a total of 1.2 L of fluid was removed. I reviewed the chest x-ray from today and there is a large stable left-sided hydropneumothorax. Based on that, I inserted the Thora vent in this patient and immediately around 600 cc of pleural fluid was drained in addition to air. The follow-up chest x-ray that was done showed decrease in the left-sided pneumothorax and the thoracostomy tube is in place and attached to suction with persistent air leak. The patient remains clinically and hemodynamically stable on 2 L of oxygen by nasal cannula with a pulse ox of 98%. The patient remains on [facility], on p.o. Lasix 40 mg twice a day. The patient is also on metoprolol 12.5 mg p.o. daily. His echocardiogram that was done on 04/02/2023 showed a left-ventricular ejection fraction of around 30 to 35% along with biatrial enlargement and moderate MR and moderate aortic stenosis/severe aortic stenosis. Moderate degree of tricuspid regurgitation was also present. On today's evaluation of 04/14/2023, I am seeing the patient for a follow- up.Patient has no specific complaints. The Thora vent is still in place and attached to suction. The total amount of output in terms of fluid from the left lung was in the order of 800 cc from yesterday. There is no persistent air leak. I am ordering a urgent chest x-ray to follow-up on the pneumothorax. Otherwise, the patient has no specific complaints. The patient is still on Lasix 40 mg p.o. twice a day. Rest of the medications are essentially unchan ged. Labs from today shows a sodium level of 135, potassium of 5.2, BUN is 124 with a creatinine of 4.1 and a potassium level is at 5.2. Echocardiogram is showing impaired LV function with an ejection fraction of 35% with moderate MR, severe aortic stenosis and bilateral atrial enlargement. The patient is having some fecal occult blood positive and the patient was taken off anticoagulation for now. EGD EGD that was done on 04/13/2023 showed erosive esophagitis and gastritis. On today's evaluation of 04/15/2023, the patient is able to sit up in a chair. He is calm and comfortable. The output from the left sided Thora vent has improved and the fluid output has dropped significantly over the past 24 hours. Repeat chest x-ray was done and the patient continues to have a very trace left apical pneumothorax. There is also some limited subcutaneous emphysema. Overall, the patient is doing well. No significant respiratory distress and the patient was transitioned to room air oxygen with a pulse ox of 94%. The patient is currently on Lasix 40 mg p.o. twice a day. He is on DuoNeb nebulized treatments [id number]. Renal function is being monitored. BUN is at 131 with a creatinine of 4.4 and sodium levels at 134. The WBC count of 8.4 with a hemoglobin of 7.2. Note that the total vent is still faster suction. There is no evidence of any air leak. Suction is being applied in regards to his left- sided pleural effusion which seems to be adequately drained at this point in time. On today's evaluation of 04/16/2023, the patient is being seen for a follow-up. He is doing well. No specific complaints. I repeated the chest x-ray earlier this morning and there was no evidence of any pneumothorax. No evidence of any air leak and I took the opportunity to remove the Thora vent from his left lung. He remained stable and the patient is currently on 2 L of oxygen by nasal cannula with a pulse ox of 96%. Denies having any specific complaints. He has chronic kidney disease and the patient is being monitored by nephrology. Hemoglobin today is at 6.78 the patient does not have any acute signs of GI bleeding. The patient had also a potassium level of 5.4. The patient was seen by nephrology and the patient will be given another dose of Lokelma 10 g and the patient is still maintained on Lasix 40 mg p.o. twice a day. Bronchodilators still being given in the form of DuoNeb nebulized treatments [id number] 4 times a day. The patient is on Aranesp. The patient is also scheduled to receive unit of packed RBC today. On today's evaluation of 04/17/2023, the patient respite status is stable and the patient is currently on 3 L O2 nasal cannula With a pulse ox of 97%. A repeat chest x-ray was done today and shows no evidence of any pneumothorax. The pat ient has developed a small left-sided pleural effusion. Otherwise, the patient is stable. Hemoglobin is at 7.9 with a white cell count of 7. Sodium level is at 132 with a potassium level of 5.8. The BUN is up to 143 with a creatinine of 5.0 as the patient has an acute on top of chronic kidney failure. His creatinine has been steadily on the rise. Nephrology on the case for now. Patient remains on Lasix 40 mg p.o. twice a day. On today's evaluation of 04/18/2023, respiratory status is stable and the patient has no respiratory difficulties. Nevertheless, there has been progressive worse quinn renal function and on today's evaluation his sodium level is at 135 with a potassium level of 5.9. The BUN is up to 153 with a creatinine of 5.2. Nephrology on the case and the patient was given a temporary dialysis catheter and the patient was started on hemodialysis for an acute on top of chronic kidney disease. He was started on hemodialysis today on 04/18/2023. He has a right femoral temporary dialysis catheter in place. He is feeling well. No other major respiratory difficulties. Any hemodynamic instability. 04/19/2023, the patient has no specific complaints. The patient was started on hemodialysis on 04/18/2023. He tolerated dialysis well with a total of 900 cc of ultrafiltration. He is resting comfortably in bed. No dialysis for today and this will be done tomorrow on 04/20/2023. No respiratory difficulties and he remains on 2 L of oxygen by nasal cannula. No cough or sputum production. No altered mentation. Potassium level today is at 5.2 with a BUN of 110 and a cre atinine of 3.7. WBC count 7.2 with a hemoglobin of 8.5. The patient is seen today April 20, 2023 in follow-up on the regular medical floor. He is currently sitting up in bed. Awake and alert in no acute distress. He is maintaining O2 saturations in the upper 90s on 2 L/min per nasal cannula. Afebrile. Hemodynamically stable. Currently receiving hemodialysis. The plan is for colonoscopy today as well. He is status post 1 unit of packed red blood cells this admission. Hemoglobin currently 8.2. Platelets 206. White count 7.1. Sodium 133. Potassium 4.8. Bicarb 29. BUN 112. Creatinine 4.19. He remains on remains on oral diuretics. The patient is seen today April 21, 2023 in follow-up on the regular medical floor. He is awake and alert in no acute distress. Resting comfortably in bed. Denies any worsening shortness of breath, cough or congestion. He is maintaining O2 saturation in the 90s on 3 L/min per nasal cannula. He is having some complaints of a sore throat. He did undergo EGD yesterday that revealed esophageal stricture and had undergone esophageal dilatation. Colonoscopy revealed severe sigmoid diverticulosis. White count 6.1. Hemoglobin 8.3. Platelets 182. Sodium 137. Potassium 4.4. Bicarb 27. BUN 62. Creatinine 3.5. Glucose 84. Plan is for repeat dialysis tomorrow. The patient is seen today April 22, 2023 in follow-up on the regular medical floor. He is currently resting comfortably in bed. Awake and alert in no acute distress. Undergoing hemodialysis today. He is maintaining good O2 saturations in the upper 90s on 3 L/min per nasal cannula. He is afebrile. Hemodynamically stable. Follow-up chest x-ray does reveal cardiomegaly and some pulmonary vascular congestion with bilateral effusions. He is status post 1 unit of packe d red blood cells this admission. Current hemoglobin 8.4. Platelets 201. White count 6.8. Sodium 136. Potassium 4.2. Bicarb 27. BUN 67. Creatinine 3.8. He is continued on oral diuretics. The patient is seen today April 23, 2023 in follow-up on the regular medical floor. He is awake and alert in no acute distress. Resting in bed. Maintaining O2 saturations in the 90s on 3 L/min per nasal cannula. He remains on hemodialysis receiving it today on his Thursday schedule. No new labs today. The patient is seen today April 24, 2023 in follow-up on the regular medical fl oor. He is resting comfortably in bed. Awake and alert in no acute distress. Continues to maintain good O2 saturations in the upper 90s on 3 L/min per nasal cannula. He is afebrile. Hemodynamically stable. White count 6.9. Hemoglobin 7.9. Platelets 169. Sodium 134. Potassium 4.5. Bicarb 28. BUN 52. Creatinine 3.3. He is continued on oral diuretics. Anticoagulated with Eliquis. Remains on bronchodilators. The patient is seen today April 25, 2023 in follow-up on the regular medical floor. He remains awake and alert in no acute distress. Currently resting in bed. Plan is for hemodialysis again today. White count 6.6. Hemoglobin 8.5. Platelets 119. Sodium 131. Potassium 4.2. Bicarb 28. BUN 41. Creatinine 2.54. Glucose 85. He remains on bronchodilators, diuretics. Anticoagulated with Eliquis. The patient is seen today April 26, 2023 in follow-up on the regular medical floor. He was resting comfortably in bed. Awake and alert in no acute distress. Denies any worsening shortness of breath, cough or congestion. He is maintaining O2 saturation in the upper 90s on 3 L/min per nasal cannula. He is afebrile. Hemodynamically stable. He is status post 1 unit of packed red blood cells this admission. His white count is 6.6. Hemoglobin 8.5. Platelets 119. Sodium 131. Potassium 4.2. Bicarb 28. BUN 41. Creatinine 2.54. He remains on Lasix 80 mg daily. Anticoagulated with Eliquis. Objective - Vital Signs Vital signs: Vital Signs Temp 97.9 F 04/26/23 07:03 Pulse 68 04/26/23 09:36 Resp 20 04/26/23 07:45 BP 105/57 04/26/23 07:03 Pulse Ox 98 04/26/23 07:03 FiO2 Intake & Output 04/25/23 04/26/23 04/26/23 17:59 06:59 18:59 Intake Total Output Total Balance Weight Intake: Oral Hemodialysis Output: Urine Hemodialysis Other: Voiding Method Indwelling Catheter # Bowel Movements - Exam GENERAL EXAM: Alert, hard of hearing, pleasant 87-year-old male, sitting in bed, on 3 L nasal cannula, in no apparent distress. HEAD: Normocephalic and atraumatic EYES: Normal reaction of pupils, equal size. NOSE: Clear with pink turbinates. THROAT: Mild erythema, no exudates NECK: No masses, no JVD. Right IJ hemodialysis catheter in place CHEST: No chest wall deformity. LUNGS: Equal air entry with right basilar inspiratory crackles. Diminished in the left lung base. CVS: S1 and S2 normal with no audible murmur, regular rhythm. No extra heart sounds ABDOMEN: No hepatosplenomegaly, active bowel sounds, no guarding or rigidity. SPINE: No scoliosis or deformity SKIN: No rashes CENTRAL NERVOUS SYSTEM: No focal deficits, tone is normal in all 4 extremities. EXTREMITIES: There is moderate bilateral lower extremity nonpitting edema. Peripheral pulses are intact. - Labs CBC & Chem 7: 04/25/23 07:00 04/25/23 07:00 Assessment and Plan Assessment: Acute hypoxemic respiratory failure, secondary to acute systolic CHF exacerbation and fluid overload. Chest x-ray shows cardiomegaly, pulmonary vascular congestion, and interstitial edema. Patient also has moderate to large left-sided pleural effusion and a small right pleural effusion. NT proBNP was elevated at 57,800. Status post left-sided thoracentesis April 05, 2023 with 1.4 L of straw-colored fluid removed. Fluid analysis transudate, cytology for malignancy. CT scan of the chest and follow-up chest x-ray reveals stable hydropneumothorax of approximately 15 to 20%. Chest x-ray April 10, 2023 shows significant reaccumulation of fluid in the left chest. Ultrasound reveals a recurrent left pleural effusion measuring 10.4 cm. A second thoracentesis was performed April 11, 2023 with 1.2 L of fluid removed. Moderate left-sided pneumothorax post procedure, Thora vent placed and subsequently removed 04/16/2023 Systolic heart failure with ejection fraction of 30 to 35% Moderate to severe aortic stenosis Moderate mitral regurgitation Acute on chronic kidney disease, creatinine was on the rise, started on hemodialysis Severe hyperkalemia, improved post hemodialysis Lactic acidosis, improved Chronic obstructive pulmonary disease, stable History of paroxysmal atrial fibrillation, anticoagulated on Eliquis, currently normal sinus Benign prostatic hyperplasia Anemia of chronic disease, patient reportedly received 1 unit PRBC here, hemoglobin 8.5 Erosive esophagitis and gastritis. EGD from 04/20/2023 revealed esophageal stricture and is status post dilatation Severe diverticulosis noted on colonoscopy 04/20/2023 Plan: The patient was seen and evaluated Medications and labs reviewed Continued on diuretics Titrate down the FiO2 as tolerated Received hemodialysis yesterday Scheduled to have hemodialysis at [facility] starting 04/28/[address] This patient was seen independently by the pulmonary nurse practitioner addressing pulmonary issues I have personally seen and examined the patient, performed the documentation and the assessment and plan as written. Number of minutes spent on the visit: 22.
--- NOTE | 2023-04-26 22:24 | P.PN ---
Subjective Progress Note Date: 04/26/23 Patient is a 87-year-old white male with past medical history significant for chronic kidney disease, congestive heart failure, atrial fibrillation anticoagulated on Eliquis, hyperlipidemia, COPD, and BPH, who was transferred from [facility] for severe hyperkalemia and acute kidney injury. Laura thayer has been complaining of shortness of breath and weakness for a few days. Patient also complaining of sore throat. Patient weakness and shortness of breath progressed so he eventually presented to [facility] where he was evaluated, patient was found to have elevated potassium levels of 8.4, patient was given hyperkalemia protocol and received sodium bicarb, Lokelma, insulin and dextrose. Chest x-ray done showed large left pleural effusion small right pleural effusion, patient was transferred to [facility]. Patient has been complaining of shortness of breath on exertion and rest. Denies any chest pain. There is complaint of swelling of lower extremities. Patient complaining of nonproductive cough. Denies any fevers or chills Patient admitted to internal medicine service 04/03. Patient seen and examined. 2D echo done showed LVEF of 35% with global hypokinesis, severe biatrial enlargement, moderate mitral regurg, severe aortic stenosis. 04/04. Patient seen and examined. States breathing is improving, still gets short of breath on exertion. 04/05. Patient seen and examined. Patient being planned for thoracentesis this morning with pulmonary medicine. States breathing is improved. Denies any nausea or vomiting 04/06. Patient seen and examined. States breathing has improved, feels much better after thoracentesis yesterday. Labs done this morning showed WBC 8.7, hemoglobin 7.7, platelet count 139, sodium 139, potassium 4.2, BUN 90, creatinine 4 04/07/2023 Patient is currently sitting up in the chair. Awake alert and oriented 3. Currently on 2 L oxygen via nasal cannula. Patient is being cannula on by mouth twice a day. Also on DuoNeb's and Pulmicort inhalation. No comments of nausea or vomiting. Tolerating oral diet. No bowel movement today. Laboratory data showed sodium 138 potassium 4.0 chloride 95 BUN 91.1 and creatinine 4.0 Patient is being followed by pulmonary and nephrology. Chest x-ray showed increasing consolidation and pleural effusion on the left. Likely represent a hydropneumothorax of approximately 5-10% pneumothorax noted. No significant interval change. 04/08/2023 Patient is currently sitting which it. Awake alert and oriented 3. requiring oxygen at a 2 L via nasal cannula. pleural fluid cultures showed no growth. No plans for chest tube placement. Pulmonary is on board. laboratory data showed sodium 139, potassium 3.9, chloride 95, BUN 96.5 and creatinine 3.1. Nephrology and pulmonology is on board. 04/09/2023 Patient is sitting in the chair. Awake alert and oriented 3. Requiring 2 L oxygen with nasal cannula. Patient does have home oxygen. Patient has been afebrile. Able to tolerate oral diet. Pleural fluid culture is negative. Cytology is negative for malignancy.. Repeat chest x-ray was ordered for tomorrow. No plan for chest tube placement at this time. Pulmonary is on board. No new laboratory data today. 04/11. Patient seen and examined. Repeat chest x-ray done showed pneumothorax moderate to large left, currently not in respiratory distress. Denies any blood in the stools 04/12. Patient seen and examined. Labs done this morning showed WBC 6.5, hemoglobin 7.6, platelet count 186, sodium 130, potassium 4.8, BUN 122, creatinine 3.9. FOBT was positive, surgery was consulted, they recommended doing EGD which is scheduled for tomorrow morning. N.p.o. at midnight 04/13. Patient seen and examined. Patient went for EGD this morning which showe d Squamocolumnar junction 41 cm from the incisors,Diaphragmatic hiatus at 41 cm,LA grade B erosive esophagitis,Acute gastritis with bleeding. 04/14. Patient seen examined. Patient had left-sided Thora vent placed. Shortness of breath has improved. Denies any nausea or vomiting. 04/15/2023 Patient is seen and evaluated in follow-up this morning continues on 3 L via nasal cannula currently weaning FiO2 as tolerated. Patient being followed by pulmonary recommending follow-up chest x-ray to monitor left-sided pneumothorax. Patient continues with left Thora vent and pulmonary discussing possibly removing the chest tube. Patient also being followed by cardiology as well as nephrology with CHF exacerbation along with acute on chronic kidney disease exacerbation. Patient has had prolonged hospitalization and generalized weakness and patient reports will be returning home and has support at the home and will continue with rehab in the outpatient setting. Patient is adamant he is going home once discharged. Hemoglobin is stable above 7 at 7.2 today white count remains normal, sodium is 134 with a potassium of 5.4, BUN is 131 and creatinine is 4.4, LFTs slightly trending down and C. difficile testing from yesterday was negative. Patient continues on oral Lasix. Potassium slightly elevated today and was given a dose of Lokelma. Will follow-up on repeat labs. Patient was continued on scheduled lactulose per surgery recommendations and will make as needed as patient is reporting having loose stools. 04/16/2023 Patient is seen in follow-up today status post chest x-ray today that showed a trace pneumothorax on the left and patient is scheduled to have the thoracotomy tube removed. Hemoglobin this morning slightly low at 6.7 and will transfuse 1 unit of PRBCs and follow-up on repeat labs later this afternoon. Patient continues on 3 L via nasal cannula reporting continued shortness of breath although no worse. Kidney functions continue with an elevated BUN of 138 and creatinine is 4.5. Nephrology is following. Potassium remains elevated and is status post a dose of Lokelma and patient has been given DDAVP today. Will follow-up with repeat labs. Encouraged increase activity as tolerated recommend PT/OT therapy evaluation. General surgery following as well with plans of endoscopic intervention including EGD and colonoscopy once more stable. Possibly Thursday. Anticoagulation remains on hold. 04/17/2023 Patient is seen in follow-up today with multiple medical consultations following. Patient had chest tube removed maintained on 3 L reports tolerating well with no worsening shortness of breath. Kidney functions continue to worsen with nephrology following recommending renal replacement. Vascular surgery consulted for dialysis cath placement. Patient is afebrile with no reported chest pain or palpitations noted. General surgery also following with plans on colonoscopy on Thursday. Hemoglobin is stable currently. Will follow-up with repeat labs and continue to monitor closely. Given significant comorbidities, prognosis is guarded. 3-2 24 Patient is currently lying in the bed. Awake alert and oriented x 3. Patient states that he has difficulty breathing and tightness in the chest. Currently requiring oxygen at 2 L via nasal cannula. Otherwise patient was found to be hyperkalemic potassium 5.9. Patient was placed on femoral catheter and was started on hemodialysis today. Denies any nausea or vomiting. Tolerating oral diet. No headache or dizziness or lightheadedness. Hemoglobin was 7.9 this morning. Laboratory data showed sodium 135 potassium 5.9 chloride 90 bicarb is 26.2 anion gap 18.8, BUN 153 and creatinine 5.2 and GFR 10 calcium 9.1. 04/19/2023 Patient is lying in the bed. Awake alert and oriented x 3. Patient did tolerate hemodialysis yesterday. Hemodialysis will be tomorrow. Currently requiring 2 L oxygen via nasal cannula. Afebrile. No cough or sputum production. Patient states that he feels better. No nausea or vomiting. Tolerating oral diet. Laboratory work showed WBC 7.2 hemoglobin 8.5 and platelets 194 Sodium 133 potassium 5.2 chloride 96 bicarb is 28 BUN 110 and creatinine 3.7 creatinine phosphorus 4.7. Nephrology and pulmonary is on board. 04/20/2023 Patient is seen and evaluated in follow-up today currently receiving hemodialysis maintained on 2 to 3 L via nasal cannula. General surgery also following working on EGD with concerns of dysphagia postdialysis. Patient is currently n.p.o. and anticoagulation remains on hold. Stable hemoglobin of 8.2 today and will discuss further with surgery regarding anticoagulation after surgical report. Patient is currently afebrile with no reports of chest pain or shortness of breath. Patient tolerating diet with no reported nausea or vomiti ng. Patient is tolerating hemodialysis that was just started this week. Patient reports he continues to want to go home and case management following working on arranging possible outpatient hemodialysis as well as home care. 04/21/2023 Patient is seen in follow-up today with vascular surgery following scheduled to have permacath placed for outpatient hemodialysis. Patient is maintained on dialysis along with multiple other consultations following including pulmonary. Patient underwent EGD with dilatation showing severe esophageal stenosis. Patient tolerating diet and denies any issues with swallowing at this time. Patient hemoglobin is stable at 8.3 with no active bleeding noted. Discussed with general surgery regarding resuming anticoagulation and will hold for today as patient is scheduled to receive permacath placement. Likely okay for resuming anticoagulation tomorrow. Patient is currently afebrile with no reports of chest pain or worsening shortness of breath. Patient is extremely anxious and wants to go home but is also significantly weak and would benefit from ECF. Patient is adamant he is going home and has home care. Case management following and will have PT/OT reevaluate the patient with recommendations. 04/23/2023 Patient is seen in follow-up today is status post permacath placement and arranging for outpatient dialysis although unavailable until Thursday morning. Patient is unable to start hemodialysis on Thursday. Attempted to call dialysis center for sooner times although no time available. Discussed with nephrology and recommending continuing and possibly holding until Thursday for short session and then discharge so patient can initiate outpatient hemodialysis on Thursday. Patient followed by general surgery as well status post EGD with colonoscopy with no active bleeding noted currently and hemoglobin is stable and will resume Eliquis and monitor. Patient is afebrile with no reported chest pain or shortness of breath. Patient reports to feeling improved and continues to request when he can go home. Patient is extremely weak and extremely high risk for readmission and significant falls as patient has had prolonged hospitalization and would benefit from rehab although patient is adamant he is going home and is refusing rehab. 04/24/2023 Patient is seen in follow-up today and is continued on hemodialysis with nephrology following. Multiple medical consultations following and has cleared the patient for discharge although patient unable to initiate hemodialysis on Thursday and patient is scheduled for dialysis starting Thursday in the outpatient setting. Patient continues with indwelling Riley catheter and had retention requiring this and will continue for now. Eliquis has been resumed and will monitor hemoglobin closely. Indwelling Riley catheter with some concentrated and small clots noted instructed nursing staff to irrigate the Riley and monitor for any worsening as Eliquis has just been resumed this morning. Will follow-up with repeat labs. Hemoglobin is stable at 7.9 today. Patient is afebrile with no reports of chest pain or worsening shortness of breath. Patient continues on 2 to 3 L and recommended wean FiO2 as tolerated. Patient was 99% on the 3 L. Patient extremely anxious to go home and reports is going home and refusing rehab. 04/25/2023 Patient is seen and evaluated today on the medical floor. He remains on hemodialysis while inpatient should be undergoing hemodialysis today. Patient will begin dialysis on a Thursday schedule outpatient and unable to coordinate this until Thursday as patient is unable to start dialysis until Thursday. Patient reports that he will be going home on discharge. He continues with indwelling catheter. Urine is clear yellow today in the Riley bag. Hemoglobin remained stable at 8.5 and he remains on Eliquis. Patient has no acute complaints. He continues on 3L oxygen support via nasal cannula with oxygen saturations of 100%. This could be weaned. Patient continues on oral Lasix 40 mg twice a day. 04/26/2023 Patient is evaluated today resting in bed. No acute complaints overnight. Patient continues on oxygen support 3L of nasal cannula. Indwelling catheter remains in place. Discharge planning for thursday for patient to get set up with outpatient hemodialysis. Current medications reviewed. REVIEW OF SYSTEMS: CONSTITUTIONAL: No fever, no malaise,. CARDIOVASCULAR: No chest pain, no palpitations, no syncope. PULMONARY: No reports of worsening shortness of breath GASTROINTESTINAL: Reports of diarrhea that is improved, no nausea, no vomiting, no abdominal pain. Reports tolerating diet with no problem NEUROLOGICAL: No headaches, no weakness, PHYSICAL EXAMINATION: GENERAL: The patient is alert and oriented x3, Well developed, well nourished. Elderly appearing, ill-appearing, thin built HEENT: Pupils are round and equally reacting to light. EOMI. No scleral icterus. No conjunctival pallor. Normocephalic, atraumatic. No pharyngeal erythema. No thyromegaly. CARDIOVASCULAR: S1 and S2 muffled PULMONARY: Coarse breath sound bilaterally, diminished at the bases ABDOMEN: Soft, nontender, nondistended, normoactive bowel sounds. No palpable organomegaly. MUSCULOSKELETAL: No joint swelling or deformity. EXTREMITIES: No cyanosis, clubbing, or pedal edema. NEUROLOGICAL: Gross neurological examination did not reveal any focal deficits. Diffusely weak SKIN: No rashes. Multiple bruises noted on upper and lower extremities Assessment: -Shortness of breath with acute hypoxic respiratory failure secondary to CHF exacerbation as well as large left sided pleural effusion and small right, status post left-sided thoracentesis x 2 recently and repeat 1 done on 04/11/2023 with approximately 1.2 L removed -Hyperkalemia secondary to OMA and metabolic acidosis. Improved post dialysis -Urinary retention requiring indwelling Riley catheter -Acute on chronic kidney disease with worsening kidney functions. Patient was initiated on hemodialysis on 04/18/2023. -Moderate left-sided pneumothorax postprocedure status post Thora vent placement, Thora vent removed on 04/16/2023 -Acute on chronic systolic congestive heart failure exacerbation, EF is 30 to 35% -Acute on chronic gastritis with bleeding noted on EGD. Colonoscopy showing internal hemorrhoids. 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 Status post EGD on 04/20/2023 with findings of dysphagia, hypertensive upper esophageal sphincter with dysmotility status post dilatation -Anemia, likely chronic, transfuse if 7 or less -History of moderate to severe aortic stenosis -Paroxysmal A-fib, currently rate controlled -COPD, acute exacerbation -Lactic acidosis, resolved GI prophylaxis DVT prophylaxis, Eliquis being resumed 04/24/2023 Full code Plan: -Patient was started on hemodialysis on 04/18/2023. Vascular surgery has placed a right permacath placed on the chest wall and case management following making arrangements for outpatient dialysis. Unable to initiate dialysis until April 28, 2023 as patient cannot start dialysis outpatient on a Thursday. Plan is for continued dialysis here and possible light session on Thursday and discharge per nephrology so patient can initiate Thursday morning -Case management following arranging for Home care outpatient as patient is adamant he is going home on discharge. -Will have PT/OT therapy revaluate the patient again as patient is significantly weak and has had prolonged hospitalization and will definitely need ECF although patient is adamant he is not going to rehab. Patient is extremely high risk for readmission and falls. Patient encouraged to increase activity level. -General surgery following status post EGD showing dysphagia with dysmotility status post dilatation and reports to feeling improved and tolerating diet -Patient was continued with Thora vent and was removed on 04/16/2023. Patient continues on 2 L via nasal cannula recommend to wean FiO2 as tolerated -Follow-up on repeat labs in the a.m. and monitor kidney functions along with electrolytes. Replace electrolytes per protocol. -Recommend PT/OT therapy daily as patient reports he is returning home and has had significantly increased weakness with prolonged hospitalization. -Patient does have continued indwelling Riley catheter as he had for retention and with some noted hematuria. Instructed the nursing staff to irrigate and with improved urine. Hemoglobin stable and eliquis resumed. No further note of bleeding. -Continue with PPI. -Due to multiple complex medical issues, prognosis is guarded The impression and plan of care has been dictated by Kandice Britt Nurse Practitioner as directed. Dr. Suresh MD I have performed a history and physical examination and medical decision making of this patient, discussed the same with the dictator, and agree with the dictators assessment and plan as written, documented as a scribe. Based on total visit time, I have performed more than 50% of this visit. Objective - Vital Signs Vital signs: Vital Signs Temp 98.1 F 04/26/23 13:32 Pulse 74 04/26/23 21:01 Resp 17 04/26/23 13:32 BP 92/48 04/26/23 13:32 Pulse Ox 99 04/26/23 13:32 FiO2 Intake & Output 04/26/23 04/26/23 04/27/23 06:59 18:59 06:59 Intake Total 1050 Output Total Balance 1050 Weight Intake: Oral 1050 Hemodialysis Output: Hemodialysis Other: Voiding Method Indwelling Catheter Indwelling Catheter # Bowel Movements 3 - Labs CBC & Chem 7: 04/25/23 07:00 04/25/23 07:00 Labs: Abnormal Lab Results - Last 24 Hours (Table) 04/26/23 Range/Units 11:48 Phosphorus 2.4 L (2.5-4.5) mg/dL Assessment and Plan Time with Patient: Less than 30
[2023-04-27] MEDS: FUROSEMIDE 40 MG TAB PO SCH (07:56)
[2023-04-27 08:35] LABS: Basophils # (A) 0.04 X 10*3/uL (0.00-0.10); Basophils % (A) 0.5 %; Eosinophils # (A) 0.51 X 10*3/uL (0.04-0.35); HCT 26.1 % (39.6-50.0); Lymphocytes # (A) 1.33 X 10*3/uL (0.90-5.00); Lymphocytes % (A) 18.3 %; MCHC 30.7 g/dL (32.0-37.0); MCV 97.8 FL (80.0-97.0); Mean Platelet Volume 11.6 FL (9.5-12.2); Monocytes % (A) 13.7 %; NRBC Per 100 WBC 0 X 10*3/uL (0.00-0.01); Neutrophils # (A) 4.35 X 10*3/uL (1.80-7.70); Neutrophils % (A) 59.8 %; Platelet Count 134 X 10*3/uL (140-440); RBC 2.67 X 10*6/uL (4.40-5.60); RDW 15.6 % (11.5-14.5); WBC 7.28 X 10*3/uL (4.50-10.00)
[2023-04-27 11:23] LABS: BUN/Creat Ratio 15.14 Ratio (12.00-20.00); Blood Urea Nitrogen 43.9 mg/dL (9.0-27.0); Calcium 8.4 mg/dL (8.7-10.3); Carbon Dioxide 26.1 mmol/L (21.6-31.8); Chloride 97 mmol/L (96-109); Glucose 87 mg/dL (70-110); Potassium 4.4 mmol/L (3.5-5.5); Sodium 133 mmol/L (135-145)
--- NOTE | 2023-04-27 12:06 | P.PN ---
Subjective Patient is seen in follow-up for acute kidney injury on chronic kidney disease. Started on hemodialysis April 18, 2023. Resting in bed. On nasal cannula. Denies chest pain or shortness of breath. Riley catheter removed this morning. Scheduled for dialysis tomorrow. Vital signs are stable. General: No acute distress. HEENT: Head exam is unremarkable. On nasal cannula. LUNGS: No acute distress. HEART: Rate and Rhythm are regular. ABDOMEN: Nontender. EXTREMITITES: No edema. Objective - Vital Signs Vital signs: Vital Signs Temp 98.4 F 04/27/23 07:43 Pulse 72 04/27/23 09:35 Resp 17 04/27/23 07:43 BP 103/46 04/27/23 07:43 Pulse Ox 98 04/27/23 07:43 FiO2 Intake & Output 04/26/23 04/27/23 04/27/23 18:59 06:59 18:59 Intake Total 1050 Output Total 50 Balance 1050 -50 Weight 45.5 kg Intake: Oral 1050 Output: Urine 50 Other: Voiding Method Indwelling Catheter Indwelling Catheter Indwelling Catheter # Bowel Movements 3 - Labs CBC & Chem 7: 04/27/23 05:45 04/27/23 05:45 Labs: Abnormal Lab Results - Last 24 Hours (Table) 04/26/23 04/27/23 04/27/23 Range/Units 11:48 05:45 05:45 RBC 2.67 L (4.40-5.60) X 10*6/uL Hgb 8.0 L (13.0-17.0) g/dL Hct 26.1 L (39.6-50.0) % MCV 97.8 H (80.0-97.0) FL MCHC 30.7 L (32.0-37.0) g/dL RDW 15.6 H (11.5-14.5) % Plt Count 134 L (140-440) X 10*3/uL Immature Gran # 0.05 H (0.00-0.04) X 10*3/uL Eosinophils # 0.51 H (0.04-0.35) X 10*3/uL Sodium 133 L (135-145) mmol/L BUN 43.9 H (9.0-27.0) mg/dL Creatinine 2.9 H (0.6-1.5) mg/dL Est GFR (CKD-EPI) 20 L (>=60) Calcium 8.4 L (8.7-10.3) mg/dL Phosphorus 2.4 L (2.5-4.5) mg/dL Assessment and Plan Plan: Assessment: 1. Acute kidney injury secondary to ATN secondary to cardiorenal syndrome, anemia and urinary retention. Started on hemodialysis April 18, 2023. Has pe rmacath. No hydronephrosis noted on kidney ultrasound. 2. Chronic kidney disease stage IV with baseline creatinine near 3 secondary to nephrosclerosis and obstructive uropathy. 3. Hyperkalemia secondary to acute kidney injury, acidosis and urinary retention. Also component of GI bleed. Improved with medical management and dialysis. 4. Volume overload with pleural effusions. Improved with diuresis. 5. Acute blood loss anemia status post blood transfusion this admission. EGD done this admission showed acute on chronic gastritis with bleeding. Colonoscopy showed internal hemorrhoids and moderate to severe sigmoid diverticulosis without active bleeding. On Aranesp. Status post blood transfusion and IV DDAVP this admission. 6. Acute on chronic systolic CHF ejection fraction of 30 to 35% with moderate mitral and tricuspid regurgitation. 7. Metabolic acidosis secondary to acute kidney injury s/p bicarb drip. 8. Urinary retention status post Riley catheter placement. On Flomax. Riley catheter removed this morning. Plan: Maintain Lasix. Hemodialysis Thursday. He will be maintained on Thursday schedule at [facility]. Avoid nephrotoxins. Maintain midodrine. Hold for systolic blood pressure greater than 110. Continue to monitor renal function and urine output. Monitor for renal recovery outpatient. Phosphorus level 2.4 dated April 26, 2023. Will give 1 dose of Neutra-Phos now. Encouraged oral intake.
[2023-04-27] MEDS: POTAS-SOD-PHOS 278-164-250 MG 1 EACH PACKET PO ONE (12:52)
[2023-04-27 14:40] VITALS: BP 112/52; PULSE 66; RESP 18; TEMP 98.3
[2023-04-27 15:15] VITALS: BMI 14.8
--- NOTE | 2023-04-29 21:53 | P.DS ---
Providers Date of admission: 04/02/23 00:15 Attending physician: Paul Hernandez Consults: 04/02/23 00:14 Consult Physician Routine Consulting Provider: Erick Armas Consult Reason/Comments: hyperkalemia, hardy on ckd Do you want consulting provider notified?: Already Contacted Consult Physician Routine Consulting Provider: Hiral Reddy Consult Reason/Comments: left pleural effusion Do you want consulting provider notified?: Yes Consult Physician Urgent Consulting Provider: [facility] Consult Reason/Comments: chf Do you want consulting provider notified?: Yes 04/17/23 20:40 Consult Physician Urgent Consulting Provider: David Harrington Consult Reason/Comments: dialysis cath placement Do you want consulting provider notified?: Yes Primary care physician: Doris Ashraf DO Hospital Course: final Diagnosis -Shortness of breath with acute hypoxic respiratory failure secondary to CHF exacerbation as well as large left sided pleural effusion and small right, status post left-sided thoracentesis x 2 recently and repeat 1 done on 04/11/2023 with approximately 1.2 L removed -Hyperkalemia secondary to HARDY and metabolic acidosis. Improved post dialys patient is stable for discharge home with overall guarded prognosis. Patient is set up for hemodialysis and biotics is -Urinary retention requiring indwelling Garcia catheter -Acute on chronic kidney disease with worsening kidney functions. Patient was initiated on hemodialysis on 04/18/2023. -Moderate left-sided pneumothorax postprocedure status post Thora vent placement, Thora vent removed on 04/16/2023 -Acute on chronic systolic congestive heart failure exacerbation, EF is 30 to 35% -Acute on chronic gastritis with bleeding noted on EGD. Colonoscopy showing internal hemorrhoids. 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 Status post EGD on 04/20/2023 with findings of dysphagia, hypertensive upper esophageal sphincter with dysmotility status post dilatation -Anemia, likely chronic, transfuse if 7 or less -History of moderate to severe aortic stenosis -Paroxysmal A-fib, currently rate controlled -COPD, acute exacerbation -Lactic acidosis, resolved Discharge Disposition Patient stable for discharge home overall guarded prognosis as physical therapy was recommending subacute rehab and family was unsure if they were able to provide transportation to hemodialysis. His chair time is set up for [facility] hemodialysis at 7:40 AM on Thursday. Patient's first hemodialysis session is scheduled for April 28, 2023 at 740 in the morning. He is advised to get there about half hour early to get set up. Additionally patient has been started on Aranesp he is unable to afford this medication based on his insurance coverage and he is recommended to follow-up with his director of user experience Dr. Rogers about this on discharge. He does have an appointment made on May 05 at 920 in the morning. Lasix has been increased to 80 mg daily as recommended by nephrology. Additionally patient has been started on midodrine 5 mg to take 3 times a day and hold for systolic blood pressure greater than 110. Patient has been started on metoprolol 12.5 mg daily. Recommending to repeat a CBC and CMP in 2 days which can be completed with his next hemodialysis session. Patient to follow-up with his primary care provider Dr. Doris Ashraf and recommending an appointment in 1 to 2 days. Hospital Course This is an 87-year-old male with medical history of chronic kidney disease, congestive heart failure, atrial fibrillation anticoagulated with Eliquis on an outpatient basis, hyperlipidemia, COPD and BPH patient was transferred down from [facility] due to severe hypokalemia and acute kidney injury. Patient reports that he has been feeling short of breath and weak over the last couple days. He is also complaining of a sore throat symptoms have progressed and eventually presented to [facility]. His potassium level there was found to be 8.4 which was treated with sodium bicarb and Lokelma and insulin dextrose. Additionally a chest x-ray was done showing a large left pleural effusion small right pleural effusion the patient was transferred to [facility]. Patient does have swelling in his lower extremities bilaterally. He is not complaining of any chest discomfort no nausea vomiting or diarrhea. He was admitted to the hospital under medicine service. He was started on Lasix. Patient had an echocardiogram done showing an EF of 45% with global hypokinesis and severe biatrial enlargement moderate mitral regurgitation and severe aortic stenosis. Patient to continue to to be symptomatic and he underwent thoracentesis on April 11, 2023 he had 1.2 L removed. He is also status post left sided thoracentesis x 2. Patient was found to have a pneumothorax and a Thora vent was placed which was subsequently removed on April 16, 2023. Patient's kidney function was worsening this admission and he was initiated on hemodialysis on April 18, 2023. He received a right chest permacath. Patient was also found to be retaining urine and had a Garcia catheter placed. There was concern for anemia with a hemoglobin dropping to 7.6 with a positive fecal occult blood test. Patient underwent EGD showing squamocolumnar junction at 41 cm from the incisors with the diaphragmatic hiatus at 41 cm LA grade B erosive esophagitis and acute gastritis with bleeding. Hemoglobin has stabilized and he is continued on his Eliquis. Patient's pathol ogy from his thoracentesis comes back negative for malignancy. His follow-up x- ray shows improvement in his volume overload. Patient has no more episodes of active bleeding and hemoglobin is stable patient reports feeling improved and is now denying any shortness of breath or chest discomfort. He has a extremely high risk for readmission due to his weakness and frequent falls at home he has had a prolonged hospital stay and would benefit from subacute rehab although patient is adamant that he is going home and has refused rehab. He is seen in follow-up and has been set up for hemodialysis outpatient this is confirmed and family will be providing transportation. Patient will have indwelling catheter removed prior to discharge recommended to follow-up with his known urologist in 1 week. Patient was seen in follow-up by nephrology recommending to increase Lasix up to 80 mg oral daily. His lungs are clear S1-S2 auscultated abdomen is soft and nontender focal neurological exam is negative he is alert x 3. Hemodynamically he is stable and he continues on 2 L of oxygen via nasal cannula. Cultures of blood work is showing a white count of 7.28, hemoglobin of 8.0, sodium level 133, BUN of 42.9, creatinine of 2.9, magnesium level 2.0. He is cleared for discharge home. Please see medication reconciliation for a list of current medications. Thank you for allowing us to participate in the care of this patient. The impression and plan of care has been dictated by Kandice Britt, Nurse Practitioner as directed. Dr. Suresh MD I have performed a history and physical examination and medical decision making of this patient, discussed the same with the dictator, and agree with the dictators assessment and plan as written, documented as a scribe. Based on total visit time, I have performed more than 50% of this visit. Patient Condition at Discharge: Fair Plan - Discharge Summary Discharge Rx Participant: No New Discharge Prescriptions: New Darbepoetin Jamar [Aranesp] 40 mcg SQ Q7D #1 each Artificial Tears-Hypromellose [Artificial Tear Drops] 1 drops BOTH EYES QID PRN ml PRN Reason: Dry Eye(S) Simethicone Chew [Mylicon Chew] 40 mg PO QID PRN tab PRN Reason: Gi Upset Famotidine [Pepcid] 20 mg PO DAILY #30 tablet Midodrine [ProAmatine] 5 mg PO AC-TID #90 tab Metoprolol Succinate (ER) [Toprol XL] 12.5 mg PO DAILY #30 tab Acetaminophen Tab [Tylenol] 650 mg PO Q6HR PRN tab PRN Reason: Fever And/ Or Pain Furosemide [Lasix] 80 mg PO DAILY #30 tab Continue Montelukast [Singulair] 10 mg PO DAILY Tamsulosin HCl [Flomax] 0.4 mg PO DAILY Apixaban [Eliquis] 2.5 mg PO BID Oxybutynin Chloride [oxyBUTYnin chloride ER] 10 mg PO BID Lovastatin [Mevacor] 20 mg PO HS Budesonide [Pulmicort] 0.5 mg INHALATION RT-BID Albuterol Nebulized [Ventolin Nebulized] 2.5 mg INHALATION RT-Q6H PRN PRN Reason: Shortness Of Breath allopurinoL [Zyloprim] 100 mg PO BID Folic Acid 1 mg PO DAILY Discontinued hydrALAZINE HCL [Apresoline] 25 mg PO BID Furosemide [Lasix] 20 mg PO DAILY amLODIPine [Norvasc] 5 mg PO DAILY Discharge Medication List Montelukast [Singulair] 10 mg PO DAILY 07/30/15 [History] Tamsulosin HCl [Flomax] 0.4 mg PO DAILY 07/21/17 [History] Apixaban [Eliquis] 2.5 mg PO BID 08/28/22 [History] Lovastatin [Mevacor] 20 mg PO HS 08/28/22 [History] Albuterol Nebulized [Ventolin Nebulized] 2.5 mg INHALATION RT-Q6H PRN 04/02/23 [History] Budesonide [Pulmicort] 0.5 mg INHALATION RT-BID 04/02/23 [History] Folic Acid 1 mg PO DAILY 04/02/23 [History] Oxybutynin Chloride [oxyBUTYnin chloride ER] 10 mg PO BID 04/02/23 [History] allopurinoL [Zyloprim] 100 mg PO BID 04/02/23 [History] Acetaminophen Tab [Tylenol] 650 mg PO Q6HR PRN tab 04/27/23 [Rx] Artificial Tears-Hypromellose [Artificial Tear Drops] 1 drops BOTH EYES QID PRN ml 04/27/23 [Rx] Darbepoetin Jamar [Aranesp] 40 mcg SQ Q7D #1 each 04/27/23 [Rx] Famotidine [Pepcid] 20 mg PO DAILY #30 tablet 04/27/23 [Rx] Furosemide [Lasix] 80 mg PO DAILY #30 tab 04/27/23 [Rx] Metoprolol Succinate (ER) [Toprol XL] 12.5 mg PO DAILY #30 tab 04/27/23 [Rx] Midodrine [ProAmatine] 5 mg PO AC-TID #90 tab 04/27/23 [Rx] Simethicone Chew [Mylicon Chew] 40 mg PO QID PRN tab 04/27/23 [Rx] Follow up Appointment(s)/Referral(s): [facility] [NON-STAFF] - As Needed Uriel Rhodes MD [STAFF PHYSICIAN] - 1 Week (Office was not answering at time of discharge. Please call for follow-up appointment.) Guedra Dueñas MD [STAFF PHYSICIAN] - As Needed (Office stated they will call for follow-up appointment.) Doris Ashraf DO [Primary Care Provider] - 1-2 days (Office is not answering please call for follow-up appointment.) Erick Armas DO [STAFF PHYSICIAN] - 05/06/23 9:20 am ([place] location) Brady Traylor MD [STAFF PHYSICIAN] - 1 Week Ambulatory/Diagnostic Orders: Complete Blood Count w/diff [LAB.AMB] Time Frame: 3 Days, Location: None Selected Comprehensive Metabolic Panel [LAB.AMB] Time Frame: 3 Days, Location: None Selected Patient Instructions/Handouts: Chronic Kidney Disease (DC), Hyperkalemia (DC) Activity/Diet/Wound Care/Special Instructions: Jacqueline Srinivasan [facility] hemodialysis chair time of 7:40a on Thursday//Thursday. First appointment is on April 27. Please arrive to first appointment 15minutes early. Address: [address] in [place]; phone #[phone]. [facility] Transportation: #[phone]-please call them to see if they are able to assist with transportation. Need to repeat your labs in 2 to 3 days to monitor renal function and hemoglobin. This can be done with hemodialysis on . Please bring lab slips to your chair time appointment. Continue on nasal cannula oxygen support. Continue with zinc barrier cream to the open area on your coccyx reapply morning and evening and need to continue with pressure offloading to the coccyx. Continue on the midodrine 3 times a day; with breakfast lunch and dinner. Monitor blood pressure and hold this medication for the scheduled dose if your systolic blood pressure (top number) greater than 110. Make an appointment and follow up with urologist, Dr. Traylor on discharge for the urinary retention and garcia removal in 1 to 2 weeks. Continue on flomax. Discharge Disposition: HOME WITH HOME HEALTH SERVICES
== END 2023-04-27 16:33 | disposition home health service (06) | DRG 291 ==
LOC: EC 21:35 → 3SCARD 04-02 00:15 → 4SSUR 04-03 09:32
PROVIDERS: ADMIT Hospitalist; ATTEND Hospitalist
PROC: 0W9B3ZZ Drainage of Left Pleural Cavity, Percutaneous Approach (ICD-10-PCS; 2023-04-05)
PROC: 0DJ08ZZ Inspection of Upper Intestinal Tract, Via Natural or Artificial Opening Endoscopic (ICD-10-PCS; 2023-04-13)
PROC: 0W9B30Z Drainage of Left Pleural Cavity with Drainage Device, Percutaneous Approach (ICD-10-PCS; principal; 2023-04-13 08:20)
PROC: 0W9B3ZZ Drainage of Left Pleural Cavity, Percutaneous Approach (ICD-10-PCS; 2023-04-16)
PROC: 30233N1 Transfusion of Nonautologous Red Blood Cells into Peripheral Vein, Percutaneous Approach (ICD-10-PCS; 2023-04-16)
PROC: 5A1D70Z Performance of Urinary Filtration, Intermittent, Less than 6 Hours Per Day (ICD-10-PCS; 2023-04-18)
PROC: 06HM33Z Insertion of Infusion Device into Right Femoral Vein, Percutaneous Approach (ICD-10-PCS; 2023-04-18)
PROC: 0D718ZZ Dilation of Upper Esophagus, Via Natural or Artificial Opening Endoscopic (ICD-10-PCS; 2023-04-20)
PROC: 0DJD8ZZ Inspection of Lower Intestinal Tract, Via Natural or Artificial Opening Endoscopic (ICD-10-PCS; 2023-04-20)
PROC: 02HV33Z Insertion of Infusion Device into Superior Vena Cava, Percutaneous Approach (ICD-10-PCS; 2023-04-21)
PROC: B5181ZA Fluoroscopy of Superior Vena Cava using Low Osmolar Contrast, Guidance (ICD-10-PCS; 2023-04-21)
PROC: B548ZZA Ultrasonography of Superior Vena Cava, Guidance (ICD-10-PCS; 2023-04-21)
PROC: 04PYX3Z Removal of Infusion Device from Lower Artery, External Approach (ICD-10-PCS; 2023-04-21)
PROC: 0JH63XZ Insertion of Tunneled Vascular Access Device into Chest Subcutaneous Tissue and Fascia, Percutaneous Approach (ICD-10-PCS; 2023-04-21 15:00)
DX: I13.0 Hypertensive heart and chronic kidney disease with heart failure and stage 1 through stage 4 chronic kidney disease, or unspecified chronic kidney disease (principal); I50.23 Acute on chronic systolic (congestive) heart failure; J95.811 Postprocedural pneumothorax; N18.6 End stage renal disease; J96.01 Acute respiratory failure with hypoxia; N17.0 Acute kidney failure with tubular necrosis; K29.01 Acute gastritis with bleeding; K22.11 Ulcer of esophagus with bleeding; K29.51 Unspecified chronic gastritis with bleeding; I48.21 Permanent atrial fibrillation; N18.4 Chronic kidney disease, stage 4 (severe); N13.8 Other obstructive and reflux uropathy; D62 Acute posthemorrhagic anemia; E87.20 Acidosis, unspecified; J91.8 Pleural effusion in other conditions classified elsewhere; J44.1 Chronic obstructive pulmonary disease with (acute) exacerbation; J93.82 Other air leak; I31.39 Other pericardial effusion (noninflammatory); I47.20 Ventricular tachycardia, unspecified; J94.8 Other specified pleural conditions; K22.10 Ulcer of esophagus without bleeding; N40.1 Benign prostatic hyperplasia with lower urinary tract symptoms; D63.1 Anemia in chronic kidney disease; E87.5 Hyperkalemia; E78.5 Hyperlipidemia, unspecified; I08.3 Combined rheumatic disorders of mitral, aortic and tricuspid valves; I44.7 Left bundle-branch block, unspecified; I70.0 Atherosclerosis of aorta; K22.2 Esophageal obstruction; K22.4 Dyskinesia of esophagus; K57.30 Diverticulosis of large intestine without perforation or abscess without bleeding; K64.8 Other hemorrhoids; K56.41 Fecal impaction; J43.8 Other emphysema; Y84.8 Other medical procedures as the cause of abnormal reaction of the patient, or of later complication, without mention of misadventure at the time of the procedure; R29.6 Repeated falls; I25.5 Ischemic cardiomyopathy; I25.10 Atherosclerotic heart disease of native coronary artery without angina pectoris; R33.8 Other retention of urine; Z79.01 Long term (current) use of anticoagulants; Z79.899 Other long term (current) drug therapy; Z82.49 Family history of ischemic heart disease and other diseases of the circulatory system; Z87.19 Personal history of other diseases of the digestive system; Z96.1 Presence of intraocular lens; Z99.2 Dependence on renal dialysis; Z98.42 Cataract extraction status, left eye; Z98.41 Cataract extraction status, right eye; I08.1 Rheumatic disorders of both mitral and tricuspid valves
CPT/HCPCS: 36415; 36556; 36558; 43235; 43248; 45378; 51798; 71045; 71046; 71250; 74230; 76604; 76770; 76937; 77001; 80048; 80053; 81003; 82272; 82607; 82747; 82945; 83605; 83615; 83735; 83880; 84100; 84132; 84155; 84157; 84484; 85025; 85027; 85610; 85730; 86704; 86706; 86850; 86900; 86901; 86920; 87070; 87102; 87116; 87205; 87206; 87324; 87340; 87496; 87498; 87502; 87529; 87634; 87635; 87651; 87798; 88108; 88305; 89050; 90935; 93005; 93306; 94640; 94760; 96365; 96366; 96375; 96376; 99211; 99291